=== PATIENT | male | born 1960 | race Caucasian/White ===

== ENCOUNTER 2017-05-10 08:07 | Emergency (ER) | payer MEDICARE, MEDICAID, SELFPAY ==
[2017-05-10 08:08] VITALS: BP 144/116; PULSE 100; RESP 20; TEMP 36.6; O2SAT 98; BMI 23.3
--- NOTE | 2017-05-10 08:24 | RAD_ITS ---
STUDY: X-RAY CHEST REASON FOR EXAM: Male, 57 years old. Hemoptysis. TECHNIQUE: PA and lateral views of the chest. COMPARISON: Comparison is made with prior study dated November 22, 2016. FINDINGS: Hyperinflation. Decreased bronchovascular markings in both lungs suggestive of emphysematous changes. No acute abnormality is seen. There is no demonstrated pleural abnormality. Normal size heart. Normal mediastinum and zachary. Normal visualized pulmonary arteries. Normal visualized aortic arch and descending thoracic aorta. There are mild degenerative changes of the visualized thoracic spine. Normal visualized ribs, clavicles, and shoulders. There is no demonstrated abnormality of the visualized soft tissue structures of the upper abdomen. RAD/Chest PA and Lateral IMPRESSION: Hyperinflation and emphysematous changes. No acute abnormality is seen. Electronically Signed: Neftali Hernandez MD at 9:35 EST Tel [phone], Service support ,
--- NOTE | 2017-05-10 08:25 | ED.VISSUMM ---
- ER Visit Summary Date of Service: 05/10/17 Chief Complaint: Cough History of Present Illness: The patient is a 57 M history of anxiety and scleroderma. Also MS. Patient states that he has a cough for a month. He states he was diagnosed with influenza at the [facility] urgent care. States she was initially placed on doxycycline and currently is on Bactrim. He states that in the last 2 days he has been coughing up some flecks of blood. He denies any history of TB. No recent travel, surgery or mobilization. No leg pain or swelling. No history of DVT or PE. No chest pain. Physical Examination: Well-appearing middle-age male. Vital signs are stable and afebrile. Pulse ox 90% on room air no signs of hypoxia. H EENT exam is unremarkable. Neck nontender no JVD no lymphadenopathy. Lungs coarse breath sounds but no rales, rhonchi or wheezing. Equal and symmetrical. No distress. Heart regular rhythm rate about 90-100 no murmur. Abdomen is soft and nontender. Well-healed surgical incision in the right lower quadrant for prior hernia repair. He is moving all 4 extremities. They are neurovascularly intact. No edema. No calf pain or cords. Neurologically is awake and alert. Back exam nontender. Test Results: Chest x-ray two-view shows shows chronic changes consistent with COPD but no acute abnormality. Normal cardiac silhouette. No pneumothorax. No infiltrate. No mass. Read both by myself the radiologist. I did go over the x-ray with the patient. Emergency Department Course and Treatment: Clinically patient looks good. More than likely has a viral bronchitis. Treatment Plan: No antibiotics at this time. I expressed to him he needs to stop smoking he says he is trying is gone from 3 packs a day to down to a half a pack. Disposition: Discharge Impression: Viral bronchitis OPD Tobacco abuse This note was generated with Innove[employer] dictation software. It may contain incorrect words, spelling, and punctuation that were not noted in review of the chart prior to signing ED Disposition - Plan for ED Patient: Chief Complaint: Cough Referrals: Care Physician,No Primary [NON-STAFF] -
--- NOTE | 2017-05-10 09:48 | DCINST.ED_ITS ---
ED Disposition - Plan for ED Patient: Disposition: Home or Assisted Living Chief Complaint: Cough Instructions: ED COPD Flare Referrals: Care Physician,No Primary [NON-STAFF] - 3-5 Days if not improving Additional Instructions: Stop smoking. [id number] cough suppressant. At this time he did not need an antibiotic. You do have COPD but there are no acute signs of pneumonia and there are no obvious lung masses on your chest x- ray. If you continue to cough up blood you will need further evaluation and possible a scope of your lungs called bronchoscopy.
[2017-05-10 09:53] VITALS: BP 152/89; PULSE 95; RESP 16; O2SAT 99
== END 2017-05-10 09:54 | disposition home or self-care (01) ==
PROVIDERS: Emergency Provider Emergency Medicine; Family Provider Family Medicine; PCP Family Medicine
DX: J20.8 Acute bronchitis due to other specified organisms (principal); J44.9 Chronic obstructive pulmonary disease, unspecified; Z72.0 Tobacco use; F41.9 Anxiety disorder, unspecified; M34.9 Systemic sclerosis, unspecified; G35 Multiple sclerosis; Z79.82 Long term (current) use of aspirin; Z79.899 Other long term (current) drug therapy
CPT/HCPCS: 71046; 99284

== ENCOUNTER → 2017-05-25 07:24 | Outpatient (CLI) | payer MEDICARE, MEDICAID, SELFPAY ==
[2017-05-10 08:08] VITALS: BMI 23.3
[2017-05-10 09:53] VITALS: BP 152/89
--- NOTE | 2017-05-25 07:45 | MRI_ITS ---
STUDY: MR PELVIS WITHOUT CONTRAST REASON FOR EXAM: Male, 57 years old. Chronic right lower quadrant pain. TECHNIQUE: Standardized fat and water weighted pulse sequences were obtained in all 3 orthogonal planes. COMPARISON: CT dated January 21, 2017 FINDINGS: There is bladder wall thickening present. There is a left renal cyst visualized. Normal visualized small intestine. Normal visualized colon. There is no pelvic mass lesion or lymphadenopathy. Normal visualized pelvic arteries. There is degenerative disc disease at L5-S1 associated with a posterior disc osteophyte causing bilateral narrowing of the neuroforamina. There are postsurgical changes within the inguinal region bilaterally. There is persistent fluid within the inguinal region bilaterally, left greater than right. MRI/Pelvis (Routine) IMPRESSION: Postsurgical changes within the inguinal region associated with a small amount of fluid, left greater than right. Bladder wall thickening which may be partially secondary to its incomplete distended state however this may be secondary to a history of cystitis. L5-S1 posterior disc osteophyte causing bilateral neuroforaminal stenosis. Electronically Signed: Oneida Peter MD at 20:03 EST Tel , Service support ,
--- NOTE | 2017-05-25 08:30 | MRI_ITS ---
STUDY: MR CHOLANGIOPANCREATOGRAPHY (MRCP) REASON FOR EXAM: Male, 57 years old. Chronic RLQ pain, Pt co that hernia mesh pulled loose. TECHNIQUE: Standard MRCP technique was utilized. COMPARISON: CT Abdomen/Pelvis Jan 21 2017 5:59pm FINDINGS: There are calcifications of the abdominal aorta. This is consistent for atherosclerotic disease. There is no abdominal aortic aneurysm. Degenerative findings of the lumbar spine. 20 mm T2 hyperintensity in the left kidney. Gall Bladder: Gall bladder is surgically absent. Cystic duct: Normal with no demonstrated fixed filling defect. Intrahepatic ducts: Normal visualized intrahepatic ducts with no demonstrated fixed filling defect, dilation or stricture. Common hepatic duct: Normal with no demonstrated fixed filling defect, dilation or stricture. Common bile duct: Normal with no demonstrated fixed filling defect, dilation or stricture. Common bile duct diameter is 4.1 mm. Pancreatic duct: Normal with no demonstrated fixed filling defect, dilation or stricture. MRI/MRCP Abdomen without Contrast IMPRESSION: Simple left renal cyst. Cholecystectomy. Electronically Signed: Eitan Harvey MD at 23:38 EST , Service support ,
== END ==
PROVIDERS: Family Provider Family Medicine; PCP Family Medicine; Visit Provider Family Medicine
DX: R10.31 Right lower quadrant pain (principal); R10.9 Unspecified abdominal pain; G89.29 Other chronic pain
CPT/HCPCS: 72195; 74181

== ENCOUNTER 2017-06-02 13:07 | Emergency (ER) | payer MEDICARE, MEDICAID, SELFPAY ==
[2017-06-02 13:08] VITALS: BP 159/97; PULSE 97; RESP 20; TEMP 36.6; O2SAT 99; BMI 24.7
--- NOTE | 2017-06-02 13:39 | EKG12_ITS ---
Test Reason : CP Blood Pressure : / mmHG Vent. Rate : 093 BPM Atrial Rate : 093 BPM P-R Int : 122 ms QRS Dur : 090 ms QT Int : 344 ms P-R-T Axes : 076 090 073 degrees QTc Int : 427 ms Normal sinus rhythm Normal ECG Confirmed by AMANDA ESPAÑA, ARLEN ([id number]), editor at large ASHLEY GARCIA ([id number]) on 06/05/2017 1:46:53 PM Referred By: ROSENDO Confirmed By:ARLEN PATEL MD
--- NOTE | 2017-06-02 13:39 | RAD_ITS ---
STUDY: X-RAY CHEST REASON FOR EXAM: Male, 57 years old. Cough TECHNIQUE: Frontal and lateral views of the chest were obtained. COMPARISON: May 10, 2017 FINDINGS: The lungs are hyperinflated. There are no focal airspace opacities. There is no demonstrated pleural abnormality. The cardiac silhouette is normal in size. The mediastinum and hilar regions are unremarkable. Normal visualized pulmonary arteries. Normal visualized aortic arch and descending thoracic aorta. The thoracic spine is unremarkable. The visualized ribs, clavicles, and shoulders are unremarkable. There is no demonstrated abnormality of the visualized upper abdomen. RAD/Chest PA and Lateral IMPRESSION: There is no evidence of focal consolidation or pleural effusion. Stable COPD. Electronically Signed: Nelda Cam MD at 14:28 EST Tel Direct: [phone], Service support ,
[2017-06-02 14:05] LABS: Absolute Lymphocyte Count 2.26 X10^3/ul (0.83-4.51); Absolute Neutrophil Count 3.1 X10^3/uL (2.0-7.7); Basophil# 0.02 X10^3/uL; Basophil% 0.3 % (0-1); Eosinophil# 0.05 X10^3/uL; Eosinophils% 0.8 % (0-5); Hematocrit 44.6 % (40-54); Hemoglobin 14.9 g/dl (13.0-16.5); Lymphocyte # 2.26 X10^3/ul (4.0); Lymphocyte % 37.7 % (19-41); Mean Corp Hgb Conc 33.4 g/gl (32-36); Mean Corpuscular Volume 95.7 fL (80-94); Mean Platelet Vol. 9.1 fl (6.2-12.0); Monocyte# 0.52 X10^3/uL; Monocyte% 8.7 % (0-10); Neutrophil # 3.14 X10^3/uL (2.7-7.7); Neutrophil % 52.3 % (47-70); Platelet Count 232 K/mm3 (150-450); RBC Distribution Width CV 12.9 % (11.6-14.6); Red Blood Count 4.66 M/mm3 (4.6-6.2)
[2017-06-02] MEDS: Acetaminophen 500 MG Tablet 1000 MG PO (14:06)
[2017-06-02 14:07] LABS: POSITIVE COUNT NO; POSITIVE DIFFERENTIAL NO; POSITIVE MORPHOLOGY NO
[2017-06-02 14:15] LABS: Anion Gap 5 (5-15); BUN 7 mg/dL (7-18); BUN/Creat Ratio 8.8 RATIO (10-20); Calcium,Total 8.7 mg/dL (8.5-10.1); Chloride 103 mmol/L (98-107); EST Glomerular Filtration Rate 107 mL/min (>60); Est Glom Filt Rate - Afr Amer 129 mL/min (>60); Estimated Creatinine Clearance 109.81 ml/min; Glucose 122 mg/dL (74-106); Potassium 3.9 mmol/L (3.5-5.1); Sodium Level 140 mmol/L (136-145)
--- NOTE | 2017-06-02 14:53 | ED.VISSUMM ---
- ER Visit Summary Date of Service: 06/02/17 Chief Complaint: Chest pain History of Present Illness: The patient is a [address] Webb. He reports he has chest pain that began today approximately 7 hours ago. It is a constant pressure that is 10 out of 10 with movement of his arm and 9 out of 10 at rest. The pain is relieved by nothing. He has had nausea and shortness of breath. He has a cough that is productive clear sputum. He has chronic shortness of breath that is unchanged. Also complains of a headache is 7 out of 10 severity and is similar to prior headaches. Physical Examination: Vitals: Stable. Afebrile. General: Well-nourished and well-developed. Head: Normocephalic atraumatic. Neck: Supple, no lymphadenopathy. No JVD. Nontender. Cardiovascular: Regular rate and rhythm. No murmurs. Respiratory: No respiratory distress. Mild wheezing bilaterally with good air movement. Abdominal: Soft, mild diffuse tenderness to palpation, nondistended, normal bowel sounds. No guarding, rebound, or peritoneal signs. Back: Nontender. Extremities: Nontender, no edema. Skin: Normal color, no rash. Neurologic: Alert and oriented ?3. Cranial nerves II through XII are intact. Normal strength and sensation. Psych: Normal affect. Test Results: EKG is sinus at [address] changes. Is unchanged from February 2017. Troponin is less than 0.02 with greater than 7 hours of constant pain. Chem-7 is more for glucose of 122. CBC is normal. Chest x-ray shows chronic changes. Emergency Department Course and Treatment: She was treated with prednisone p.o., Tylenol p.o., and albuterol and Atrovent aerosols. He is resting comfortably. Treatment Plan: He will be discharged 5 day burst of prednisone. Instructed to use his inhaler at home. Follow-up with his primary care physician in 5 days if not improving. Disposition: To home in improved and stable condition. Impression: 1. COPD exacerbation. 2. Atypical chest pain. 3. STEVEN score of 1. This note was generated with PlayCanvasation software. It may contain incorrect words, spelling, and punctuation that were not noted in review of the chart prior to signing ED Disposition - Plan for ED Patient: Disposition: Home or Assisted Living Chief Complaint: Chest Pain Instructions: ED Chest Pain Atypical Unkn Cause Prescriptions: Prednisone [Deltasone] 60 mg PO DAILY #15 tablet Referrals: Savita Webb MD [Primary Care Provider] - 3-5 Days if not improving
--- NOTE | 2017-06-02 15:04 | ED.DCSUM_ITS ---
- ER Visit Summary Date of Service: 06/02/17 Chief Complaint: Chest pain History of Present Illness: The patient is a [address] Webb. He reports he has chest pain that began today approximately 7 hours ago. It is a constant pressure that is 10 out of 10 with movement of his arm and 9 out of 10 at rest. The pain is relieved by nothing. He has had nausea and shortness of breath. He has a cough that is productive clear sputum. He has chronic shortness of breath that is unchanged. Also complains of a headache is 7 out of 10 severity and is similar to prior headaches. Physical Examination: Vitals: Stable. Afebrile. General: Well-nourished and well-developed. Head: Normocephalic atraumatic. Neck: Supple, no lymphadenopathy. No JVD. Nontender. Cardiovascular: Regular rate and rhythm. No murmurs. Respiratory: No respiratory distress. Mild wheezing bilaterally with good air movement. Abdominal: Soft, mild diffuse tenderness to palpation, nondistended, normal bowel sounds. No guarding, rebound, or peritoneal signs. Back: Nontender. Extremities: Nontender, no edema. Skin: Normal color, no rash. Neurologic: Alert and oriented ?3. Cranial nerves II through XII are intact. Normal strength and sensation. Psych: Normal affect. Test Results: EKG is sinus at [address] changes. Is unchanged from February 2017. Troponin is less than 0.02 with greater than 7 hours of constant pain. Chem-7 is more for glucose of 122. CBC is normal. Chest x-ray shows chronic changes. Emergency Department Course and Treatment: She was treated with prednisone p.o. , Tylenol p.o., and albuterol and Atrovent aerosols. He is resting comfortably. Treatment Plan: He will be discharged 5 day burst of prednisone. Instructed to use his inhaler at home. Follow-up with his primary care physician in 5 days if not improving. Disposition: To home in improved and stable condition. Impression: 1. COPD exacerbation. 2. Atypical chest pain. 3. STEVEN score of 1. This note was generated with DragonRADation software. It may contain incorrect words, spelling, and punctuation that were not noted in review of the chart prior to signing ED Disposition - Plan for ED Patient: Disposition: Home or Assisted Living Chief Complaint: Chest Pain Instructions: ED Chest Pain Atypical Unkn Cause Prescriptions: Prednisone [Deltasone] 60 mg PO DAILY #15 tablet Referrals: Savita Webb MD [Primary Care Provider] - 3-5 Days if not improving
[2017-06-02 15:12] VITALS: BP 148/98; PULSE 84; RESP 17; O2SAT 94
== END 2017-06-02 15:13 | disposition home or self-care (01) ==
LOC: ED 14:34
PROVIDERS: Emergency Provider Emergency Medicine; Family Provider Family Medicine; PCP Family Medicine
DX: J44.1 Chronic obstructive pulmonary disease with (acute) exacerbation (principal); R07.89 Other chest pain; G35 Multiple sclerosis; F41.9 Anxiety disorder, unspecified; Z72.0 Tobacco use; Z79.82 Long term (current) use of aspirin; Z79.52 Long term (current) use of systemic steroids
CPT/HCPCS: 71046; 80048; 84484; 85025; 93005; 96360; 99285; J7030; J7040; A4216

== ENCOUNTER → 2017-07-30 16:40 | Outpatient (CLI) | payer MEDICARE, MEDICAID, SELFPAY ==
[2017-07-30 16:50] LABS: Bacteria 0 SEEN /hpf (None Seen); Mucous, Urine 0 SEEN /hpf (<or=2+); Squamous Epithelial Cells - UA 0 SEEN /hpf (0-5)
[2017-07-30 17:27] LABS: Color, Urine Yellow (Yellow); Glucose, Dipstick Normal (Normal); Ketone-Dipstick Negative (Negative); Leukocyte Esterase-Dipstick 25 /ul (Negative); Nitrite-Dipstick Negative (Negative); Occult Blood-Urine 10 /ul (Negative); Protein-Dipstick Negative (Negative); Urine Bilirubin Dipstick Negative (Negative); Urine Clarity Sl. Cloudy (Clear); Urine Urobilinogen Normal (Normal)
[2017-07-30 17:40] LABS: Red Blood Cells-Urine 0-5 SEEN /hpf (0-5); White Blood Cells 0-5 SEEN /hpf (0-5)
[2017-07-31 08:31] LABS: Anion Gap 8 (5-15); BUN 8 mg/dL (7-18); BUN/Creat Ratio 9.9 RATIO (10-20); Calcium,Total 8.9 mg/dL (8.5-10.1); Chloride 94 mmol/L (98-107); Creatinine, Serum 0.81 mg/dL (0.70-1.30); EST Glomerular Filtration Rate 105 mL/min (>60); Est Glom Filt Rate - Afr Amer 127 mL/min (>60); Glucose 106 mg/dL (74-106); Potassium 3.7 mmol/L (3.5-5.1); Sodium Level 131 mmol/L (136-145)
== END ==
PROVIDERS: Family Provider Family Medicine; PCP Family Medicine; Visit Provider Urology
DX: R97.20 Elevated prostate specific antigen [PSA] (principal); N40.0 Benign prostatic hyperplasia without lower urinary tract symptoms
CPT/HCPCS: 36415; 80048; 81001; 81002; 84153

== ENCOUNTER → 2017-08-29 09:48 | Outpatient (CLI) | payer MEDICARE, MEDICAID, SELFPAY ==
[2017-08-29 11:29] LABS: Anion Gap 6 (5-15); BUN 9 mg/dL (7-18); BUN/Creat Ratio 11.8 RATIO (10-20); Calcium,Total 8.5 mg/dL (8.5-10.1); Chloride 107 mmol/L (98-107); Creatinine, Serum 0.76 mg/dL (0.70-1.30); EST Glomerular Filtration Rate 113 mL/min (>60); Est Glom Filt Rate - Afr Amer 136 mL/min (>60); Glucose 114 mg/dL (74-106); Potassium 3.8 mmol/L (3.5-5.1); Sodium Level 140 mmol/L (136-145)
== END ==
PROVIDERS: Visit Provider Urology
DX: Z98.890 Other specified postprocedural states (principal)
CPT/HCPCS: 36415; 80048

== ENCOUNTER 2017-11-13 17:38 | Emergency (ER) | payer MEDICARE, MEDICAID, SELFPAY ==
[2017-11-13 17:38] VITALS: BP 174/101; PULSE 120; RESP 18; TEMP 36.1; O2SAT 98; BMI 25.7
--- NOTE | 2017-11-13 18:25 | ED.VISSUMM ---
- ER Visit Summary Date of Service: 11/13/17 Chief Complaint: Chronic abdominal pain History of Present Illness: The patient is a 57 M with chronic abdominal pain since he had bilateral inguinal hernia surgery 2 years ago. He states that ever since the surgery was done, he has had pain at the site and feels like there is a problem with the mesh. He tells me that he has had over 20 CT scans for this and has seen specialist all over the country. He is currently seeing a specialist in [place] who is planning to do surgery to remove the mesh. He was there last month and he reported that the pain from his abdomen is radiating into his chest so they delayed the surgery until he could be cleared by cardiology. He subsequently saw a custodial officer while he was in [place] and had a stress test which was negative. He was cleared for the surgery but it had to be rescheduled. He presents today without any new symptoms. He states that his complaints are the same as chronic. Denies diaphoresis, chest pain, shortness of breath. No exertional symptoms. He only has pain at his hernia site and only with certain movements or palpation. He is requesting a new prescription for an abdominal pain medication. Physical Examination: Vitals are within normal limits except for mild hypertension. He states that he did not take his medication. He is not in distress. He looks well-hydrated. Neck is supple. Heart tones are regular and without murmur. Lungs are clear bilaterally. Abdomen is soft and nontender. The skin over his surgery site looks normal. There is no palpable mass. No evidence of incarcerated hernia. No rebound or guarding. No peritoneal signs. Strong pulses in all extremities. No clinical evidence of DVT. Test Results: None performed Emergency Department Course and Treatment: I spoke at length with the patient. He assures me that this is a chronic recurrent problem for him. He told me that he does not want any testing done and states that he has had basically every test that there is and that he knows all of this is from the hernia surgery. He is planning to go through with the surgery but is here requesting a refill of his cholestyramine to cover him for a short period he is slightly tachycardic and hypertensive here on arrival but it is improved on repeat. He is not in any distress. He has no evidence of an acute surgical abdomen. His EKG is unremarkable and he currently denies any chest pain. While he did travel recently to [place], he has no clinical evidence of DVT and no pleuritic chest pain. No shortness of breath and his pulse ox is normal. I do not suspect DVT or PE. He does not want any testing done here and given the chronicity of his symptoms, I do think it is safe for him to continue outpatient follow-up. Treatment Plan: I prescribed Levsin. He will follow-up as scheduled Disposition: Home stable condition Impression: Chronic abdominal pain This note was generated with SwiftKey dictation software. It may contain incorrect words, spelling, and punctuation that were not noted in review of the chart prior to signing ED Disposition - Plan for ED Patient: Chief Complaint: General Illness Instructions: ED Chronic Pain Management Prescriptions: Hyoscyamine [Levsinex] 0.375 mg PO Q12 #6 tablet Referrals: Care Physician,No Primary [Primary Care Provider] -
[2017-11-13 18:57] VITALS: BP 147/99; PULSE 100; RESP 18; O2SAT 97
[2017-11-13] MEDS: Hyoscyamine Sulfate 0.125 MG/ML Bottle 0.375 MG PO (18:58)
== END 2017-11-13 19:02 | disposition home or self-care (01) ==
PROVIDERS: Emergency Provider Emergency Medicine
DX: R10.9 Unspecified abdominal pain (principal); G89.29 Other chronic pain; Z79.82 Long term (current) use of aspirin; Z79.899 Other long term (current) drug therapy
CPT/HCPCS: 93005; 99283

== ENCOUNTER 2017-11-20 17:12 | Emergency (ER) | payer MEDICARE, MEDICAID, SELFPAY ==
[2017-11-20 17:13] VITALS: BP 141/96; PULSE 99; RESP 18; TEMP 36.6; O2SAT 97; BMI 25.5
[2017-11-20 17:55] VITALS: PULSE 103; RESP 18
[2017-11-20] MEDS: Ipratropium/Albuterol Sulfate 3 ML AMPUL.NEB INHALATION (17:55)
[2017-11-20] MEDS: Ketorolac 30 MG/ML Syringe 60 MG IM (17:55)
--- NOTE | 2017-11-20 19:34 | ED.VISSUMM ---
- ER Visit Summary Date of Service: 11/20/17 Chief Complaint: Back pain History of Present Illness: The patient is a 57 M who goes to [facility]. He reports that he has had back pain for years. It worsened 2 hours ago. He describes it as a burning pain that is 10 out of 10 at worst and 9 out of 10 currently. It is worsened by movement. He is taken Tylenol without relief. He denies any radiation to his legs. No problems with his bowels or bladder. No numbness in his groin. No recent trauma. No fall, MVA, or change in activity. On review of systems patient reports that he has a little bit of cough and mild shortness of breath. He denies any fever or chills. He has had nausea without vomiting. No abdominal pain. He has had 3 episodes of diarrhea today. No blood in his stools or black tarry stools. He has a headache that is 4 out of 10 in severity. He has a history of similar headaches. He denies any other complaints. Physical Examination: Vitals: Stable. Afebrile. General: A&O x 3. NAD. Cardiovascular exam: Regular rate and rhythm, no murmur, rub or gallop. Respiratory exam: No respiratory distress. Mild wheezing bilaterally with greatly decreased air movement. Abdominal exam: Soft, nontender, nondistended, normal bowel sounds. No peritoneal signs. Back: Diffuse moderate tenderness to palpation over the lumbar spine and the paraspinous musculature in the lumbar region. No point tenderness. Negative straight leg bilaterally. 5/5 DF, PF, EHL bilaterally. Normal sensation to light touch throughout. Extremity: No clubbing, cyanosis, or edema. Palpable dorsalis pedis pulses bilaterally. Test Results: Chest x-ray shows chronic changes. Emergency Department Course and Treatment: Patient was given dose of Toradol IM. History of albuterol and Atrovent aerosols. Is given dose of prednisone p.o. Treatment Plan: Patient will be discharged instructions to use NSAIDs and Tylenol for pain. He will be placed on a 5 day burst of prednisone. Is given prescription for an albuterol MDI. Instructed to follow-up his primary care physician 1-2 days if not improving. Return to the emergency department for any worsening symptoms. Disposition: To home in improved and stable condition. Impression: 1. Chronic back pain. 2. COPD. This note was generated with CITTIO dictation software. It may contain incorrect words, spelling, and punctuation that were not noted in review of the chart prior to signing ED Disposition - Plan for ED Patient: Disposition: Home or Assisted Living Chief Complaint: Shortness of Breath Instructions: ED COPD Flare, ED Neck Back Pain General Prescriptions: Albuterol Inhaler [Ventolin Hfa] 1 - 2 puff INHALATION Q4H PRN PRN #1 inhaler PRN Reason: Wheezing Prednisone [Deltasone] 60 mg PO DAILY #15 tablet Referrals: Doctor,Your [STAFF PHYSICIAN] - 3-5 Days if not improving
[2017-11-20 20:00] VITALS: BP 140/94; PULSE 86; RESP 18; O2SAT 96
[2017-11-20] MEDS: predniSONE 20 MG Tablet 40 MG PO (20:01)
--- NOTE | 2017-11-21 12:04 | CM.ED ---
ED CALLBACK: Follow-up call placed to patient with no answer. Voicemail left with return contact information.
== END 2017-11-20 20:05 | disposition home or self-care (01) ==
LOC: ED 18:06
PROVIDERS: Emergency Provider Emergency Medicine
DX: M54.5 Low back pain (principal); G89.29 Other chronic pain; J44.9 Chronic obstructive pulmonary disease, unspecified; G35 Multiple sclerosis; F41.9 Anxiety disorder, unspecified; Z72.0 Tobacco use; Z79.82 Long term (current) use of aspirin; Z79.52 Long term (current) use of systemic steroids; Z79.899 Other long term (current) drug therapy
CPT/HCPCS: 71046; 94640; 96372; 99283

== ENCOUNTER 2017-11-29 11:54 | Emergency (ER) | payer MEDICARE, MEDICAID, SELFPAY ==
[2017-11-29 11:56] VITALS: BP 155/93; PULSE 116; RESP 18; TEMP 36.6; O2SAT 98; BMI 25.7
--- NOTE | 2017-11-29 12:44 | ED.DCSUM_ITS ---
- ER Visit Summary Date of Service: 11/29/17 Chief Complaint: Acute on chronic abdominal pain. History of Present Illness: The patient is a 57 M 3 of prior bilateral inguinal hernias with mesh. Also positive umbilical hernia surgery. Patient had this done in May 2016 at [place]. He has had pain ever since he has been seen here multiple times. He is seen. He states at least 20 different surgeons including surgeons locally. Also in [facility] and [place]. No surgon is going to remove the mesh. He is frustrated by this. Physical Examination: Oh. No acute distress. Vital signs stable afebrile. H EENT exam unremarkable strong smell tobacco. Neck nontender. Lungs coarse breath sounds no rales or rhonchi. Heart regular rhythm. Abdomen soft. Nondistended normal bowel sounds no peritoneal signs. He complains of pain suprapubically and in both lower quadrants. There is no bulge at this time. No obvious hernia at this time. No masses. No distended bladder. No signs of obstruction. He is moving all 4 extremities. Calves are nontender. Back exam nontender. Neurologically is awake and alert. Test Results: None Emergency Department Course and Treatment: I had a long discussion with the patient in a male that was in the room with him. I explained to him that this really is not an acute emergency department problem. He has had this for nearly 1-1/2-2 years. He is followed up with a number of surgeons. They need to decide if there is a going to remove the mesh and do further surgery or not and at this time it seems like no one is willing to do that. I explained to him he needs no further testing today in the ER. That the ER would not be removing the mesh. Treatment Plan: Patient received IM Toradol. IM Phenergan. And discharged home. He does have Zofran at home for nausea. Disposition: Discharge Impression: Acute on chronic abdominal pain History of prior inguinal hernia repairs with mesh This note was generated with Basha dictation software. It may contain incorrect words, spelling, and punctuation that were not noted in review of the chart prior to signing ED Disposition - Plan for ED Patient: Chief Complaint: Abd Pain Referrals: Care Physician,No Primary [Primary Care Provider] -
--- NOTE | 2017-11-29 12:44 | ED.DEP ---
ED Disposition - Plan for ED Patient: Disposition: Home or Assisted Living Chief Complaint: Abd Pain Instructions: ED Abdominal Pain Unkn Cause Referrals: Verito Ceron MD [STAFF PHYSICIAN] - 1-2 Weeks
--- NOTE | 2017-11-29 12:44 | ED.RN ---
Upon getting medications for patient, patient was observed walking out of ED. Pt did not respond when asked if he wanted his medication. Dr. Cuellar and registration notified.
== END 2017-11-29 13:10 | disposition home or self-care (01) ==
LOC: ED 14:56
PROVIDERS: Emergency Provider Emergency Medicine
DX: R10.33 Periumbilical pain (principal); R10.31 Right lower quadrant pain; R10.32 Left lower quadrant pain; Z98.890 Other specified postprocedural states; G89.29 Other chronic pain; Z72.0 Tobacco use
CPT/HCPCS: 96372; 99282

== ENCOUNTER 2017-12-14 18:22 | Emergency (ER) | payer MEDICARE, MEDICAID, SELFPAY ==
[2017-12-14 18:23] VITALS: BP 167/91; PULSE 102; RESP 16; TEMP 36.1; BMI 26.2
--- NOTE | 2017-12-14 19:07 | ED.VISSUMM ---
- ER Visit Summary Date of Service: 12/14/17 Chief Complaint: Abdominal pain History of Present Illness: The patient is a 57 M with abdominal pain for about a year, however this is worse today and he feels like his right inguinal mesh is infected. Apparently he has had these infections in the past. He has no fever chills. He has no diarrhea constipation or flank pain. He has no upper abdominal pain. Physical Examination: [] Patient does not appear in acute distress. Moist mucous membranes, no obvious facial deformity No C-spine tenderness supple neck. Regular rate and rhythm without any obvious murmurs Clear lungs bilaterally speaking in full sentences without any obvious respiratory distress Abdomen soft and with inguinal tenderness guarding or rebound. No swelling in that region, no pallor or erythema or any signs of infection. Moves all extremities without any difficulty or pain. Skin does not show any obvious rashes or lesions, no trauma. Alert oriented ?3 with no gross focal deficit Emergency Department Course and Treatment: Has a negative CT. White counts 8 he appears well and nontoxic I do not see an infection he probably has pain in his mesh which is at multiple times I will discharge him with reassurance. Discharge stable condition Impression: Abdominal pain, chronic recurrent This note was generated with [employer] dictation software. It may contain incorrect words, spelling, and punctuation that were not noted in review of the chart prior to signing ED Disposition - Plan for ED Patient: Disposition: Home or Assisted Living Chief Complaint: Abd Pain Instructions: ED Abdominal Pain Unkn Cause Prescriptions: Naproxen [Naprosyn] 500 mg PO BID PRN #20 tab Referrals: Care Physician,No Primary [Primary Care Provider] - 5-7 Days
[2017-12-14] MEDS: Morphine 4 MG/ML Syringe IV (19:09)
[2017-12-14] MEDS: Ondansetron 4 MG/2 ML Vial IV (19:09)
[2017-12-14 19:25] LABS: Absolute Lymphocyte Count 1.76 X10^3/ul (0.83-4.51); Absolute Neutrophil Count 5.8 X10^3/uL (2.0-7.7); Basophil# 0.03 X10^3/uL; Basophil% 0.4 % (0-1); Eosinophil# 0.08 X10^3/uL; Eosinophils% 0.9 % (0-5); Hematocrit 44.6 % (40-54); Hemoglobin 15.5 g/dl (13.0-16.5); Lymphocyte # 1.76 X10^3/ul (4.0); Lymphocyte % 20.6 % (19-41); Mean Corp Hgb Conc 34.8 g/gl (32-36); Mean Corpuscular Hgb 32.3 pg (27.0-32.0); Mean Corpuscular Volume 92.9 fL (80-94); Monocyte# 0.88 X10^3/uL; Monocyte% 10.3 % (0-10); Neutrophil # 5.77 X10^3/uL (2.7-7.7); Neutrophil % 67.7 % (47-70); Platelet Count 243 K/mm3 (150-450); RBC Distribution Width CV 12.7 % (11.6-14.6); RBC Distribution Width SD 42.6 fl (35.1-43.9); White Blood Count 8.5 K/mm3 (4.4-11.0)
[2017-12-14 19:26] LABS: POSITIVE COUNT NO; POSITIVE DIFFERENTIAL NO; POSITIVE MORPHOLOGY NO
[2017-12-14 19:54] LABS: ALB/GLOB Ratio 1.1 RATIO (0.9-2.4); AST(SGOT) 19 U/L (15-37); Alanine Aminotransfer ALT/SGPT 22 U/L (16-61); Albumin, Serum 3.6 g/dL (3.2-5.0); Alkaline Phosphatase 76 U/L (45-117); Anion Gap 9 (5-15); BUN 14 mg/dL (7-18); BUN/Creat Ratio 15.4 RATIO (10-20); Calcium,Total 8.3 mg/dL (8.5-10.1); Chloride 108 mmol/L (98-107); Creatinine, Serum 0.91 mg/dL (0.70-1.30); EST Glomerular Filtration Rate 92 mL/min (>60); Est Glom Filt Rate - Afr Amer 111 mL/min (>60); Estimated Creatinine Clearance 96.54 ml/min; Globulin 3.3 g/dL (2.2-4.2); Glucose 141 mg/dL (74-106); Potassium 3.3 mmol/L (3.5-5.1); Protein, Total 6.9 g/dL (6.4-8.2); Sodium Level 144 mmol/L (136-145)
--- NOTE | 2017-12-14 21:04 | ED.DEP ---
ED Disposition - Plan for ED Patient: Disposition: Home or Assisted Living Chief Complaint: Abd Pain Instructions: ED Abdominal Pain Unkn Cause Prescriptions: Naproxen [Naprosyn] 500 mg PO BID PRN #20 tab Referrals: Care Physician,No Primary [Primary Care Provider] - 5-7 Days
[2017-12-14 21:10] VITALS: BP 142/90; PULSE 81; RESP 18; O2SAT 94
== END 2017-12-14 21:11 | disposition home or self-care (01) ==
PROVIDERS: Emergency Provider Emergency Medicine
DX: R10.31 Right lower quadrant pain (principal); G89.29 Other chronic pain; J44.9 Chronic obstructive pulmonary disease, unspecified; G35 Multiple sclerosis; F41.9 Anxiety disorder, unspecified; Z72.0 Tobacco use; Z79.51 Long term (current) use of inhaled steroids; Z79.82 Long term (current) use of aspirin; Z79.899 Other long term (current) drug therapy
CPT/HCPCS: 74176; 80053; 85025; 96374; 96375; 99283; A4216; J2405

== ENCOUNTER → 2017-12-27 07:23 | Outpatient (CLI) | payer MEDICARE, MEDICAID, SELFPAY ==
--- NOTE | 2017-12-27 07:26 | CDU_ITS ---
Reason For Study: ATHEROSCLEROSIS Rt. Velocities/BP Lt. Velocities/BP Prox CCA 94/24 cm/sec. Prox CCA 123 cm/sec. Mid CCA 84/32 cm/sec. Mid CCA 72/27 cm/sec. Dist CCA 76/26 cm/sec. Dist CCA 90/38 cm/sec. Prox ICA 42/19 cm/sec. Prox ICA 97/23 cm/sec. Mid ICA 52/24 cm/sec. Mid ICA 53/22 cm/sec. Dist ICA 76/36 cm/sec. Dist ICA 92/42 cm/sec. Rt. ICA/CCA = .9. Lt. ICA/CCA = 1.35. Prox ECA 125/25 cm/sec. Prox ECA 73/20 cm/sec. Rt. Vert. 46/23 cm/sec. Lt. Vert. 61/24 cm/sec. Right Extracranial There is homogeneous, smooth atherosclerotic plaque noted in the right common carotid artery. There is heterogeneous, irregular atherosclerotic plaque noted in the right internal carotid artery. There is heterogeneous, irregular atherosclerotic plaque noted in the right external carotid artery. Antegrade flow is noted in the right vertebral artery. Left Extracranial There is homogeneous, smooth atherosclerotic plaque noted in the left common carotid artery. There is heterogeneous, irregular atherosclerotic plaque noted in the left internal carotid artery. There is homogeneous, smooth atherosclerotic plaque noted in the left external carotid artery. Antegrade flow is noted in the left vertebral artery. Procedure Carotid Duplex 70431. Exam performed in department. Interpretation Summary Mild (<50%) stenosis right extracranial internal carotid. Mild (<50%) stenosis left extracranial internal carotid. Flow within the vertebral arteries is antegrade bilaterally. Ordering Physician: Charlie Ovalle Referring Physician: Charlie Ovalle Performed By: Liss Dejesus, ZA, RVT
--- NOTE | 2017-12-27 07:27 | AAVD_ITS ---
Reason For Study: ATHEROSCLEROSIS Aorta Measurements Aorta Doppler Measurements Proximal aorta measures1.5 X 1.6cm. in cross- Peak systolic flow velocities within the proximal sectional axis. aorta measure 48.3 cm/sec. Proximal aorta measures1.7cm. in longitudinal Peak systolic flow velocities within the mid axis. aorta measure 48.3 cm/sec. Mid aorta measures1.7 X 1.6cm. in cross-sectionalPeak systolic flow velocities within the distal axis. aorta measure 53.8 cm/sec. Mid aorta measures1.6cm. in longitudinal axis. Distal aorta measures1.6 X 1.6cm. in cross- sectional axis. Distal aorta measures1.7cm. in longitudinal axis. Left Iliac Artery Left iliac artery measures .8 X .8 cm. in the cross-sectional axis. Left iliac artery measures .7 cm. in the longitudinal axis. Peak systolic velocity in the left iliac artery measures 131 cm/sec. Right Iliac Artery Right iliac artery measures .8 X 1.0 cm. in the cross-sectional axis. Peak systolic velocity in the right iliac artery measures 81.2 cm/sec. Right iliac artery measures .7 cm. in the longitudinal axis. Procedure Aorta IVC Iliac vasculature or bypass grafts 07349. Exam performed in department. Interpretation Summary 1. No aortoiliac aneurysm or stenosis. Ordering Physician: Charlie Ovalle Referring Physician: Charlie Ovalle Performed By: Liss Dejesus, ZA, RVT
--- NOTE | 2018-01-01 08:36 | LEAS ---
Arterial Study - Arterial Study Arterial Study: Date of scan 12/27/[address] Ovalle Interpretation: Right lower extremity with normal triphasic flow noted at the ankle both vessels with an 8 x 1.11 at the PT 1.06 of the DP. Left lower extremity with normal triphasic flow noted at the ankle with an JASON 1.18 at the DPT and 1.09 at the DP. Impression: 1. Bilateral lower extremities with normal triphasic flow no evidence of significant arterial occlusive disease at rest with an JASON 1.11 on the right and 1.18 on the left
== END ==
PROVIDERS: Visit Provider Surgery Vascular Surgery
DX: I65.23 Occlusion and stenosis of bilateral carotid arteries (principal); I70.0 Atherosclerosis of aorta; I70.213 Atherosclerosis of native arteries of extremities with intermittent claudication, bilateral legs
CPT/HCPCS: 93880; 93922; 93978

== ENCOUNTER 2018-01-26 15:34 | Emergency (ER) | payer MEDICARE, MEDICAID, SELFPAY ==
[2018-01-26 15:35] VITALS: BP 149/98; PULSE 98; RESP 18; TEMP 37.1; O2SAT 99; BMI 26.0
--- NOTE | 2018-01-26 15:53 | ED.DCSUM_ITS ---
- ER Visit Summary Date of Service: 01/26/18 Chief Complaint: Chronic pain History of Present Illness: The patient is a 57 M who presents with chronic pain for the last 1+ years since being on a medication called Aubagio. Patient has been off his medication for a year. He states since that time it feels like there are metal shards running through his bloodstream. He has had multiple workups and evaluations by multiple different physicians and surgeons. Recent arterial studies were performed and are normal. Patient states he is scheduled to see a surgeon at [facility] next month. He is currently taking Tylenol for his pain. He has not had fever or chills. He has not had vomiting. He last had a bowel movement this morning. Physical Examination: Vital signs are unremarkable. Patient sitting upright in bed no acute distress. Heart is regular rate and rhythm. Lung sounds are clear. Abdomen is soft with no focal tenderness on exam. He has active bowel sounds throughout. Neuro exam is unremarkable. Test Results: [] Emergency Department Course and Treatment: I did review the patient's recent arterial studies. At this time he has a normal exam and normal vital signs. This is been a chronic ongoing issue with multiple big workups in the past. I do not feel further workup is needed at this time. Patient does state that Toradol seems to help his pain somewhat better than naproxen. He will be given a prescription for Toradol tabs. He is to follow-up with a surgeon at [facility] next month as scheduled. Treatment Plan: [] Disposition: Discharge Impression: Chronic abdominal pain This note was generated with [employer] dictation software. It may contain incorrect words, spelling, and punctuation that were not noted in review of the chart prior to signing ED Disposition - Plan for ED Patient: Chief Complaint: Other, Pain/Inj Referrals: Care Physician,No Primary [Primary Care Provider] -
--- NOTE | 2018-01-26 15:53 | ED.DEP ---
ED Disposition - Plan for ED Patient: Disposition: Home or Assisted Living Chief Complaint: Other, Pain/Inj Instructions: ED Chronic Pain Management Prescriptions: Ketorolac [Toradol] 10 mg PO Q6H PRN #20 tablet PRN Reason: Pain Additional Instructions: Follow-up with your surgeon at [facility] next month as scheduled.
[2018-01-26] MEDS: Ketorolac 10 MG Tablet PO (16:07)
== END 2018-01-26 16:08 | disposition home or self-care (01) ==
PROVIDERS: Emergency Provider Emergency Medicine
DX: R10.9 Unspecified abdominal pain (principal); G89.29 Other chronic pain; G35 Multiple sclerosis; M48.02 Spinal stenosis, cervical region; Z72.0 Tobacco use
CPT/HCPCS: 99282

== ENCOUNTER 2018-01-27 10:08 | Emergency (ER) | payer MEDICARE, SELFPAY ==
[2018-01-27 10:10] VITALS: BP 190/111; PULSE 95; RESP 15; TEMP 36.5; O2SAT 98; BMI 25.8
[2018-01-27 10:13] VITALS: BP 180/106; PULSE 100; RESP 14; O2SAT 98
--- NOTE | 2018-01-27 10:23 | ED.VISSUMM ---
- ER Visit Summary Date of Service: 01/27/18 Chief Complaint: Chest pain History of Present Illness: The patient is a 57 M with crushing chest pain that started today. Nothing seemed to bring it on or make it worse. Nothing has seemed to make it better. He believes it is associated with his right lower quadrant abdominal pain that he has had for 5 years. He believes it is possibly related to MS medication that he stopped over a year ago. He also is concerned that it is artery pain. He has had multiple evaluations for artery problems. He has had CTs, CTAs, ABIs. He has never had vascular surgery or stents. He did have a cardiac catheterization in the past and a stress test about a month ago. He said these were normal. Patient denies cough or shortness of breath. Denies any history of PE. Denies leg swelling or calf pain. Denies hemoptysis. He denies any other GI symptoms. Denies fevers. Physical Examination: Hypertensive but otherwise vitals unremarkable. Afebrile. Alert and oriented. No acute distress. Heart regular rate and rhythm. Lungs clear. Abdomen soft and nontender. Good pulses, symmetric. Skin normal in color without pallor or diaphoresis. Test Results: EKG, laboratory studies, and chest x-ray are pending. Emergency Department Course and Treatment: Patient has had multiple evaluations for artery pain. He had an abdominal CT just over a month ago which was unremarkable. I am not sure what is causing his chronic right lower quadrant pain or what he describes as artery pain. The chest pain seems to be new. Will evaluate with labs, chest x-ray, and EKG. I do have low suspicion for coronary disease, dissection, PE, infection, pneumothorax, or any other emergent intrathoracic pathology. Workup was unremarkable. I cannot find an emergent cause for his artery pain. His chest pain workup is unremarkable. He had negative caths in the past. He had a stress test which was normal 1 month ago. I believe he is appropriate for outpatient follow-up. Patient was discharged. Return for any new or worsening issues. Treatment Plan: As above Disposition: Discharged Impression: 1. Chest pain unclear etiology This note was generated with [employer] software. It may contain incorrect words, spelling, and punctuation that were not noted in review of the chart prior to signing ED Disposition - Plan for ED Patient: Chief Complaint: Chest Pain Referrals: Care Physician,No Primary [Primary Care Provider] -
--- NOTE | 2018-01-27 10:31 | EKG12_ITS ---
Test Reason : CP Blood Pressure : / mmHG Vent. Rate : 098 BPM Atrial Rate : 098 BPM P-R Int : 122 ms QRS Dur : 092 ms QT Int : 358 ms P-R-T Axes : 076 087 059 degrees QTc Int : 457 ms Normal sinus rhythm Nonspecific ST and T wave abnormality Confirmed by LENNY ESPAÑA, JES ([id number]), continuity editor ASHLEY GARCIA ([id number]) on 01/29/2018 1:27:09 PM Referred By: OLAMIDE Confirmed By:JES GALVEZ MD
--- NOTE | 2018-01-27 10:31 | RAD_ITS ---
STUDY: X-RAY CHEST REASON FOR EXAM: Male, 57 years old. Chest pain and right upper quadrant abdominal pain. TECHNIQUE: Single AP portable view of the chest. COMPARISON: Comparison is made with prior study dated November 20, 2017. FINDINGS: EKG electrodes are seen. Hyperinflation. Decreased bronchovascular markings in both lungs worse in the right upper lung suggestive of emphysematous changes and possible bullous formation. There is no demonstrated pleural abnormality. Normal size heart. Normal mediastinum and zachary. Normal visualized pulmonary arteries. Normal visualized aortic arch and descending thoracic aorta. Normal visualized thoracic spine. Normal visualized ribs, clavicles, and shoulders. There is no demonstrated abnormality of the visualized soft tissue structures of the upper abdomen. RAD/Chest 1 View (Portable) IMPRESSION: Hyperinflation. Findings suggestive of emphysema. Electronically Signed: Neftali Hernandez MD at 11:22 EDT Tel [phone], Service support ,
[2018-01-27 10:48] LABS: Absolute Lymphocyte Count 1.65 X10^3/ul (0.83-4.51); Absolute Neutrophil Count 4.6 X10^3/uL (2.0-7.7); Basophil# 0.01 X10^3/uL; Basophil% 0.1 % (0-1); Eosinophil# 0.02 X10^3/uL; Eosinophils% 0.3 % (0-5); Hematocrit 46.9 % (40-54); Hemoglobin 15.8 g/dl (13.0-16.5); Lymphocyte # 1.65 X10^3/ul (4.0); Lymphocyte % 23.4 % (19-41); Mean Corp Hgb Conc 33.7 g/gl (32-36); Mean Corpuscular Volume 95.1 fL (80-94); Mean Platelet Vol. 8.9 fl (6.2-12.0); Monocyte# 0.75 X10^3/uL; Monocyte% 10.7 % (0-10); Neutrophil % 65.4 % (47-70); Platelet Count 214 K/mm3 (150-450); RBC Distribution Width CV 12.9 % (11.6-14.6); RBC Distribution Width SD 44.9 fl (35.1-43.9); Red Blood Count 4.93 M/mm3 (4.6-6.2)
[2018-01-27] MEDS: Morphine 4 MG/ML Syringe IV (10:50)
[2018-01-27] MEDS: Ondansetron 4 MG/2 ML Vial IV (10:50)
[2018-01-27 10:53] LABS: POSITIVE COUNT NO; POSITIVE DIFFERENTIAL NO; POSITIVE MORPHOLOGY NO
[2018-01-27 11:05] LABS: Anion Gap 7 (5-15); BUN 9 mg/dL (7-18); BUN/Creat Ratio 10.7 RATIO (10-20); Calcium,Total 8.6 mg/dL (8.5-10.1); Chloride 101 mmol/L (98-107); Creatinine, Serum 0.84 mg/dL (0.70-1.30); EST Glomerular Filtration Rate 101 mL/min (>60); Est Glom Filt Rate - Afr Amer 122 mL/min (>60); Estimated Creatinine Clearance 104.58 ml/min; Glucose 139 mg/dL (74-106); Potassium 3.8 mmol/L (3.5-5.1); Sodium Level 137 mmol/L (136-145)
--- NOTE | 2018-01-27 11:55 | ED.DEP ---
ED Disposition - Plan for ED Patient: Chief Complaint: Chest Pain Instructions: ED Chest Pain Atypical Unkn Cause Referrals: Care Physician,No Primary [Primary Care Provider] -
[2018-01-27 12:35] VITALS: BP 129/99; PULSE 82; RESP 17; O2SAT 99
== END 2018-01-27 12:38 | disposition home or self-care (01) ==
PROVIDERS: Emergency Provider Emergency Medicine
DX: R07.9 Chest pain, unspecified (principal); J44.9 Chronic obstructive pulmonary disease, unspecified; G35 Multiple sclerosis; F41.9 Anxiety disorder, unspecified; M34.9 Systemic sclerosis, unspecified; Z72.0 Tobacco use; Z79.51 Long term (current) use of inhaled steroids; Z79.82 Long term (current) use of aspirin; Z79.899 Other long term (current) drug therapy
CPT/HCPCS: 71045; 80048; 84484; 85025; 93005; 96374; 96375; 99284; A4216; J2405

== ENCOUNTER 2018-01-31 07:45 | Emergency (ER) | payer MEDICARE, MEDICAID, SELFPAY ==
[2018-01-31 07:49] VITALS: BP 161/101; PULSE 110; RESP 16; TEMP 36.6; O2SAT 98; BMI 26.0
[2018-01-31 07:53] VITALS: PULSE 109
--- NOTE | 2018-01-31 08:06 | EKG12_ITS ---
Test Reason : CP Blood Pressure : / mmHG Vent. Rate : 112 BPM Atrial Rate : 112 BPM P-R Int : 132 ms QRS Dur : 096 ms QT Int : 332 ms P-R-T Axes : 076 089 064 degrees QTc Int : 453 ms Sinus tachycardia Nonspecific ST abnormality Abnormal ECG Confirmed by LENNY HERNANDEZ ([id number]), food expeditor ASHLEY GARCIA ([id number]) on 02/04/2018 8:43:49 AM Referred By: GHISLAINE Confirmed By:LENNY HERNANDEZ
--- NOTE | 2018-01-31 08:10 | ED.VISSUMM ---
- ER Visit Summary Date of Service: 01/31/18 Chief Complaint: Chest pain and abdominal pain History of Present Illness: The patient is a 57 M who presents with lower abdominal pain that became worse today. Patient states he started having some nausea and vomiting today. Patient states he has been having some intermittent pain in his chest. Patient describes it as a heaviness. Patient states nothing makes it better or worse. Patient does admit to some shortness of breath and a cough as well. Patient denies any fevers. Patient denies any lightheadedness or dizziness. Patient denies any palpitations. Patient has a history of chronic right lower quadrant abdominal pain that he states is from a herniorrhaphy several years ago. Physical Examination: Vital signs are stable except for a mild tachycardia of 109 and a slightly elevated blood pressure 161/101. Patient is afebrile. Patient is in no acute distress. Oral mucosa is pink and moist. Neck is supple. Trachea is midline. There is no JVD noted. Heart was regular and tachycardic. Lungs showed expiratory wheezing. There is good respiratory effort noted. Abdomen is soft. Bowel sounds are normal. There is some right lower quadrant tenderness. There is no rebound or guarding noted. Cranial nerves II through XII are intact. There are no focal motor or sensory deficits noted. The remaining physical exam is within normal limits. Test Results: EKG showed a sinus tachycardia with a rate of 112. There are nonspecific ST-T wave changes in the inferior leads. This was unchanged compared to previous EKG dated 01/27/2018. PA and lateral chest x-ray was obtained. A CBC, comprehensive metabolic profile, lipase, and urinalysis were obtained and were all essentially within normal limits. Emergency Department Course and Treatment: Patient was given IV fluids, Toradol, and Zofran here. Patient was given an albuterol aerosol. Patient still complained of some mild lower abdominal pain. Patient was given a dose of morphine. Patient was more concerned with his right lower abdominal pain then his chest pain. Patient currently denies any chest pain. Patient was instructed to follow-up with his primary care physician for further evaluation. Patient understood and was agreeable with the plan. All questions were answered. Disposition: Discharge home Impression: Exacerbation of chronic right lower abdominal pain This note was generated with [employer] software. It may contain incorrect words, spelling, and punctuation that were not noted in review of the chart prior to signing ED Disposition - Plan for ED Patient: Disposition: Home or Assisted Living Chief Complaint: Other, Pain/Inj Diagnosis: Right lower quadrant abdominal pain of unknown etiology Instructions: ED Chronic Pain Management Referrals: Care Physician,No Primary [Primary Care Provider] -
[2018-01-31 08:15] VITALS: BP 173/101; PULSE 97; RESP 18; O2SAT 99
[2018-01-31 08:16] VITALS: PULSE 103; RESP 20; O2SAT 99
[2018-01-31] MEDS: Albuterol 2.5 MG/3 ML VIAL.NEB. INHALATION (08:16)
[2018-01-31] MEDS: Ondansetron 4 MG/2 ML Vial IV (08:27)
[2018-01-31] MEDS: 0.9% Normal Saline 1,000 ML 1000 ML IV (08:27)
[2018-01-31] MEDS: Ketorolac 30 MG/ML Syringe IV (08:27)
--- NOTE | 2018-01-31 08:30 | RAD_ITS ---
STUDY: X-RAY CHEST REASON FOR EXAM: Male, 57 years old. Chest pain. Shortness of breath and dyspnea. History of emphysema. TECHNIQUE: PA and lateral views of the chest. COMPARISON: Comparison is made with prior examination dated January 27, 2018. FINDINGS: EKG electrodes are seen. Hyperinflation. Decreased bronchovascular markings in both lungs worse in the right upper lobe. This is suggestive of emphysema. No acute infiltration is seen. There is no demonstrated pleural abnormality. Normal size heart. Normal mediastinum and zachary. Normal visualized pulmonary arteries. Normal visualized aortic arch and descending thoracic aorta. There are mild degenerative changes of the visualized thoracic spine. Normal visualized ribs, clavicles, and shoulders. There is no demonstrated abnormality of the visualized soft tissue structures of the upper abdomen. RAD/Chest PA and Lateral IMPRESSION: Hyperinflation. No acute abnormality is seen. Electronically Signed: Neftali Hernandez MD at 8:56 EDT Tel [phone], Service support ,
[2018-01-31 08:37] LABS: Absolute Lymphocyte Count 1.81 X10^3/ul (0.83-4.51); Absolute Neutrophil Count 3.6 X10^3/uL (2.0-7.7); Basophil# 0.02 X10^3/uL; Basophil% 0.3 % (0-1); Eosinophil# 0.05 X10^3/uL; Eosinophils% 0.8 % (0-5); Hematocrit 43.9 % (40-54); Hemoglobin 15.2 g/dl (13.0-16.5); Lymphocyte # 1.81 X10^3/ul (4.0); Lymphocyte % 29.1 % (19-41); Mean Corp Hgb Conc 34.6 g/gl (32-36); Mean Corpuscular Hgb 32.8 pg (27.0-32.0); Mean Corpuscular Volume 94.8 fL (80-94); Mean Platelet Vol. 8.9 fl (6.2-12.0); Monocyte# 0.74 X10^3/uL; Monocyte% 11.9 % (0-10); Neutrophil % 57.7 % (47-70); Platelet Count 208 K/mm3 (150-450); RBC Distribution Width CV 12.5 % (11.6-14.6); RBC Distribution Width SD 42.9 fl (35.1-43.9); Red Blood Count 4.63 M/mm3 (4.6-6.2); White Blood Count 6.2 K/mm3 (4.4-11.0)
[2018-01-31 08:38] LABS: POSITIVE COUNT NO; POSITIVE DIFFERENTIAL NO; POSITIVE MORPHOLOGY NO
[2018-01-31 08:53] LABS: ALB/GLOB Ratio 1.1 RATIO (0.9-2.4); AST(SGOT) 11 U/L (15-37); Alanine Aminotransfer ALT/SGPT 21 U/L (16-61); Albumin, Serum 3.5 g/dL (3.2-5.0); Alkaline Phosphatase 66 U/L (45-117); Anion Gap 7 (5-15); BUN 7 mg/dL (7-18); BUN/Creat Ratio 8.6 RATIO (10-20); Calcium,Total 8.1 mg/dL (8.5-10.1); Chloride 102 mmol/L (98-107); Creatinine, Serum 0.82 mg/dL (0.70-1.30); EST Glomerular Filtration Rate 104 mL/min (>60); Est Glom Filt Rate - Afr Amer 125 mL/min (>60); Estimated Creatinine Clearance 107.13 ml/min; Globulin 3.2 g/dL (2.2-4.2); Glucose 127 mg/dL (74-106); Lipase 158 U/L (73-393); Potassium 3.7 mmol/L (3.5-5.1); Protein, Total 6.7 g/dL (6.4-8.2); Sodium Level 137 mmol/L (136-145)
[2018-01-31 09:11] LABS: Bacteria 0 SEEN /hpf (None Seen); Mucous, Urine 0 SEEN /hpf (<or=2+); Red Blood Cells-Urine 0 SEEN /hpf (0-5); White Blood Cells 0 SEEN /hpf (0-5)
[2018-01-31 09:13] LABS: Color, Urine Yellow (Yellow); Glucose, Dipstick Normal (Normal); Ketone-Dipstick Negative (Negative); Leukocyte Esterase-Dipstick 25 /ul (Negative); Nitrite-Dipstick Negative (Negative); Occult Blood-Urine Negative /ul (Negative); Protein-Dipstick Negative (Negative); Specific Gravity, Urine 1.015 (1.002-1.030); Urine Bilirubin Dipstick Negative (Negative); Urine Clarity Sl. Cloudy (Clear); Urine Urobilinogen Normal (Normal)
[2018-01-31 09:19] LABS: Squamous Epithelial Cells - UA 0-5 SEEN /hpf (0-5)
[2018-01-31] MEDS: Morphine 2 MG/ML Syringe IV (09:29)
[2018-01-31 09:32] VITALS: BP 157/102; PULSE 91; RESP 12; O2SAT 98
== END 2018-01-31 09:37 | disposition home or self-care (01) ==
PROVIDERS: Emergency Provider Emergency Medicine
DX: R10.31 Right lower quadrant pain (principal); R07.9 Chest pain, unspecified; G35 Multiple sclerosis; Z72.0 Tobacco use
CPT/HCPCS: 71046; 80053; 81001; 83690; 85025; 93005; 94640; 96361; 96374; 96375; 99284; J7030; A4216; J2405

== ENCOUNTER 2018-02-01 17:09 | Emergency (ER) | payer MEDICARE, MEDICAID, SELFPAY ==
[2018-02-01 17:10] VITALS: BP 161/85; PULSE 117; RESP 18; TEMP 36.8; O2SAT 97; BMI 25.6
[2018-02-01] MEDS: Ondansetron 4 MG/2 ML Vial IM (17:41)
[2018-02-01] MEDS: Ketorolac 60 MG/2 ML Vial IM (17:42)
--- NOTE | 2018-02-01 17:45 | RAD_ITS ---
STUDY: X-RAY - ACUTE ABDOMINAL SERIES REASON FOR EXAM: Male, 57 years old. Lower abdominal pain. TECHNIQUE: Single view of the chest. Supine, 3 view(s) of the abdomen were obtained. COMPARISON: January 31, 2018 FINDINGS: The lungs are clear and expanded. Normal size heart. Normal mediastinum and zachary. Normal visualized pulmonary arteries. Normal visualized aortic arch and descending thoracic aorta. There are air-fluid levels within nondistended loops of bowel, a nonspecific bowel gas pattern. The soft tissue structures of the abdomen and pelvis are unremarkable. There are surgical clips within the right upper quadrant consistent with prior cholecystectomy. Normal visualized osseous structures. RAD/Acute Abdomen Inc Chest IMPRESSION: Nonspecific bowel gas pattern. Electronically Signed: Oneida Peter MD at 18:34 EDT Tel , Service support ,
--- NOTE | 2018-02-01 18:48 | ED.DCSUM_ITS ---
- ER Visit Summary Date of Service: 02/01/18 Chief Complaint: Abdominal pain History of Present Illness: The patient is a 57 M with right lower quadrant abdominal pain. He describes it as a crushing pain. He has had this pain for months. He says he cannot keep anything down but has not vomited or tried. He believes the pain stems from mesh implantation after hernia repair years ago. He has seen multiple surgeons for this and he was told by the surgeons who evaluated him that they could not help his symptoms. He had some diarrhea yesterday. Denies fevers. Denies any urinary symptoms. Patient was seen yesterday for abdominal pain and chest pain. He had a negative workup yesterday. He was at an outside emergency department earlier today and discharged. Physical Examination: Afebrile and vital signs unremarkable except for a blood pressure of 161/85 and a heart rate of 117. Patient is alert and oriented. No acute distress. Sitting comfortably. Moving comfortably. Heart tachycardic but regular. Lungs clear. Abdomen is soft, nontender, nondistended, normal b owel sounds, no masses. There is no tenderness, guarding, or rebound. Back is nontender. Skin appears normal. Test Results: Abdominal x-ray series showed a nonspecific bowel gas pattern. Patient was treated with Toradol, Zofran, and he had a PO challenge. Emergency Department Course and Treatment: I reviewed the patient's previous workups. His workup here consisted of x-rays was unremarkable. Symptoms are consistent with his chronic pain. There is no pain at McBurney's point. He has no new or different symptoms. I do not believe repeat blood work or imaging would be beneficial for this patient, furthermore it could be harmful. I advised the patient that he needs to follow-up with his patients surgeons. Treatment Plan: As above Disposition: Discharge Impression: 1. Right lower quadrant abdominal pain This note was generated with [employer] dictation software. It may contain incorrect words, spelling, and punctuation that were not noted in review of the chart prior to signing ED Disposition - Plan for ED Patient: Chief Complaint: Abd Pain Referrals: Care Physician,No Primary [Primary Care Provider] -
--- NOTE | 2018-02-01 18:48 | ED.DEP ---
ED Disposition - Plan for ED Patient: Chief Complaint: Abd Pain Instructions: ED Abdominal Pain Unkn Cause Male
== END 2018-02-01 18:56 | disposition home or self-care (01) ==
LOC: ED 18:06
PROVIDERS: Emergency Provider Emergency Medicine
DX: R10.31 Right lower quadrant pain (principal); G35 Multiple sclerosis; Z72.0 Tobacco use
CPT/HCPCS: 74022; 96372; 99282; A4216; J2405

== ENCOUNTER 2018-02-20 09:33 | Emergency (ER) | payer MEDICARE, MEDICAID, SELFPAY ==
[2018-02-20 09:33] VITALS: BMI 23.3
[2018-02-20 09:34] VITALS: BP 160/108; PULSE 111; RESP 14; TEMP 37.1; O2SAT 97; BMI 26.6
--- NOTE | 2018-02-20 09:50 | EKG12_ITS ---
Test Reason : CP Blood Pressure : / mmHG Vent. Rate : 113 BPM Atrial Rate : 113 BPM P-R Int : 114 ms QRS Dur : 094 ms QT Int : 328 ms P-R-T Axes : 082 090 049 degrees QTc Int : 449 ms Sinus tachycardia Rightward axis Nonspecific ST abnormality Abnormal ECG Confirmed by AMANDA ESPAÑA, ARLEN ([id number]), newspaper or periodical editor ASHLEY GARCIA ([id number]) on 02/26/2018 11:28:47 AM Referred By: ULISSES Confirmed By:ARLEN PATEL MD
--- NOTE | 2018-02-20 09:53 | ED.VISSUMM ---
- ER Visit Summary Date of Service: 02/20/18 Chief Complaint: [] Feels like shards of metal are going through his body History of Present Illness: The patient is a 57 M [] history of MS for years he indicates he was treated [facility] with the medication he calls bao, about 1 year ago for the MS he says he was given that medication he believes he immediately suffered a reaction that caused him to feel as if shards of metal work coursing through his body the medication was discontinued he was given what he reports was some type of reversal agent or antidote at the time. That did not help he continues to have a sensation at times that his blood is full of metal that is coursing through his body he had a sensation intensified this morning and he called the paramedics and he was brought into the hospital for evaluation. He basically indicates his entire body feels tingly as if metal is coursing through his blood. He has no headache no chest pain no abdominal pain and paresthesias nothing specific, he has no history of SC PE or DVT he does have history of prior hernia mesh repair surgery, anxiety, possibly COPD, he has nonspecific abdominal elements, he is still followed by the [facility] MS clinic they are aware he has persistent symptoms and there is no medications he has been given for the symptoms in fact he states he is not on anything for the MS now Indicates his MS causes him to have paresthesias from the elbows down to the fingertips all digits and that has been chronic and stable and unchanged He indicates he has been seen by physicians for this condition but no one has been able to do anything for him or help him Physical Examination: [] He is resting comforting the bed he heart rate is about 110 blood pressure is 130/80 General, no distress resting comfortably HEENT is generally unremarkable The neck is supple no adenopathy Cardiovascular, regular rate and rhythm Lungs, clear bilateral Abdomen, soft nontender Extremities, no clubbing cyanosis or edema Neurologic, awake alert answering questions appropriately moving all 4 extremities, palpation of his skin his extremities his back revealed no focal areas of abnormalities he has full range of motion of all major joints his pulses are symmetric he is in no distress Test Results: [] Emergency Department Course and Treatment: [] had these symptoms for over a year he had an exacerbation today he is on no chronic medications for all the above, at this time will provide IV fluids morphine and some Ativan screening labs He does have an appointment to see a physician this afternoon at 1 for all the above, and he is interested in keeping that appointment Reviewing some of the patient's chart shows he has had MRCP is a vascular studies of various parts of his body and other tests please see those reports in the computer that were all generally unremarkable, so he is incorrect when he notes that no one has tried to evaluate him for this condition Treatment Plan: [] The patient's EKG lab studies chest x-ray were all generally unremarkable please see those reports, again as above the patient had multiple prior studies for evaluation of this condition there was no acute gross abnormality with any of the studies. I explained to the patient given the long nature of this condition he should follow-up with his primary care for providers, his [facility] MS providers, other outpatient providers, the condition really cannot be further managed from the emergency department, he understands he does have an appointment to see a provider today at 1:00 in the afternoon he will keep that appointment and return for change in symptoms Disposition: [] Home stable Impression: [] Nonspecific whole body diffuse sense of metallic pain for over a year etiology unclear, history of MS This note was generated with [employer] dictation software. It may contain incorrect words, spelling, and punctuation that were not noted in review of the chart prior to signing ED Disposition - Plan for ED Patient: Chief Complaint: General Illness Referrals: Care Physician,No Primary [Primary Care Provider] -
--- NOTE | 2018-02-20 09:57 | RAD_ITS ---
STUDY: X-RAY CHEST REASON FOR EXAM: Male, 57 years old. Chest pain. Generalized illness. TECHNIQUE: Single AP portable view of the chest. COMPARISON: Comparison is made with prior study dated January 31, 2018. FINDINGS: EKG electrodes are seen. Hyperinflation. There are decreased bronchovascular markings in the upper lobes suggestive of emphysematous changes. There is no demonstrated pleural abnormality. Normal size heart. Normal mediastinum and zachary. Normal visualized pulmonary arteries. Normal visualized aortic arch and descending thoracic aorta. Normal visualized thoracic spine. Normal visualized ribs, clavicles, and shoulders. There is no demonstrated abnormality of the visualized soft tissue structures of the upper abdomen. RAD/Chest 1 View (Portable) IMPRESSION: Hyperinflation. Emphysematous changes. No acute abnormality is seen. Electronically Signed: Neftali Hernandez MD at 10:35 EST Tel [phone], Service support ,
--- NOTE | 2018-02-20 09:57 | ED.DCSUM_ITS ---
- ER Visit Summary Date of Service: 02/20/18 Chief Complaint: [] Feels like shards of metal are going through his body History of Present Illness: The patient is a 57 M [] history of MS for years he indicates he was treated [facility] with the medication he calls bao, about 1 year ago for the MS he says he was given that medication he believes he immediately suffered a reaction that caused him to feel as if shards of metal work coursing through his body the medication was discontinued he was given what he reports was some type of reversal agent or antidote at the time. That did not help he continues to have a sensation at times that his blood is full of metal that is coursing through his body he had a sensation intensified this morning and he called the paramedics and he was brought into the hospital for evaluation. He basically indicates his entire body feels tingly as if metal is coursing through his blood. He has no headache no chest pain no abdominal pain and paresthesias nothing specific, he has no history of TN PE or DVT he does have history of prior hernia mesh repair surgery, anxiety, possibly COPD, he has nonspecific abdominal elements, he is still followed by the [facility] MS clinic they are aware he has persistent symptoms and there is no medications he has been given for the symptoms in fact he states he is not on anything for the MS now Indicates his MS causes him to have paresthesias from the elbows down to the fingertips all digits and that has been chronic and stable and unchanged He indicates he has been seen by physicians for this condition but no one has been able to do anything for him or help him Physical Examination: [] He is resting comforting the bed he heart rate is about 110 blood pressure is 130/80 General, no distress resting comfortably HEENT is generally unremarkable The neck is supple no adenopathy Cardiovascular, regular rate and rhythm Lungs, clear bilateral Abdomen, soft nontender Extremities, no clubbing cyanosis or edema Neurologic, awake alert answering questions appropriately moving all 4 extremities, palpation of his skin his extremities his back revealed no focal areas of abnormalities he has full range of motion of all major joints his pulses are symmetric he is in no distress Test Results: [] Emergency Department Course and Treatment: [] had these symptoms for over a year he had an exacerbation today he is on no chronic medications for all the above, at this time will provide IV fluids morphine and some Ativan screening labs He does have an appointment to see a physician this afternoon at 1 for all the above, and he is interested in keeping that appointment Reviewing some of the patient's chart shows he has had MRCP is a vascular studies of various parts of his body and other tests please see those reports in the computer that were all generally unremarkable, so he is incorrect when he notes that no one has tried to evaluate him for this condition Treatment Plan: [] The patient's EKG lab studies chest x-ray were all generally unremarkable please see those reports, again as above the patient had multiple prior studies for evaluation of this condition there was no acute gross abnormality with any of the studies. I explained to the patient given the long nature of this condition he should follow-up with his primary care for providers, his [facility] MS providers, other outpatient providers, the condition really cannot be further managed from the emergency department, he understands he does have an appointment to see a provider today at 1:00 in the afternoon he will keep that appointment and return for change in symptoms Disposition: [] Home stable Impression: [] Nonspecific whole body diffuse sense of metallic pain for over a year etiology unclear, history of MS This note was generated with [employer] dictation software. It may contain incorrect words, spelling, and punctuation that were not noted in review of the chart prior to signing ED Disposition - Plan for ED Patient: Chief Complaint: General Illness Referrals: Care Physician,No Primary [Primary Care Provider] -
[2018-02-20] MEDS: LORazepam 0.5 MG Tablet PO (10:01)
[2018-02-20] MEDS: 0.9% Normal Saline 1,000 ML 1000 ML IV (10:01)
[2018-02-20] MEDS: Ondansetron 4 MG/2 ML Vial IV (10:02)
[2018-02-20] MEDS: morphine 8 MG/ML Syringe IV (10:02)
[2018-02-20 10:04] VITALS: BP 153/107; PULSE 115; RESP 16; O2SAT 96
[2018-02-20 10:15] LABS: Absolute Lymphocyte Count 2.23 X10^3/ul (0.83-4.51); Absolute Neutrophil Count 4.5 X10^3/uL (2.0-7.7); Basophil# 0.01 X10^3/uL; Basophil% 0.1 % (0-1); Eosinophil# 0.06 X10^3/uL; Eosinophils% 0.8 % (0-5); Hematocrit 45.2 % (40-54); Hemoglobin 15.5 g/dl (13.0-16.5); Lymphocyte # 2.23 X10^3/ul (4.0); Lymphocyte % 29.7 % (19-41); Mean Corp Hgb Conc 34.3 g/gl (32-36); Mean Corpuscular Hgb 32.9 pg (27.0-32.0); Mean Platelet Vol. 8.7 fl (6.2-12.0); Monocyte# 0.72 X10^3/uL; Monocyte% 9.6 % (0-10); Neutrophil # 4.47 X10^3/uL (2.7-7.7); Neutrophil % 59.5 % (47-70); Platelet Count 264 K/mm3 (150-450); RBC Distribution Width CV 13.3 % (11.6-14.6); RBC Distribution Width SD 46.1 fl (35.1-43.9); Red Blood Count 4.71 M/mm3 (4.6-6.2); White Blood Count 7.5 K/mm3 (4.4-11.0)
[2018-02-20 10:16] LABS: POSITIVE COUNT NO; POSITIVE DIFFERENTIAL NO; POSITIVE MORPHOLOGY NO
[2018-02-20 10:31] LABS: Anion Gap 9 (5-15); BUN 16 mg/dL (7-18); BUN/Creat Ratio 18.7 RATIO (10-20); Calcium,Total 8.6 mg/dL (8.5-10.1); Chloride 102 mmol/L (98-107); Creatinine, Serum 0.86 mg/dL (0.70-1.30); EST Glomerular Filtration Rate 98 mL/min (>60); Est Glom Filt Rate - Afr Amer 119 mL/min (>60); Estimated Creatinine Clearance 102.15 ml/min; Glucose 120 mg/dL (74-106); Potassium 3.9 mmol/L (3.5-5.1); Sodium Level 137 mmol/L (136-145)
--- NOTE | 2018-02-20 11:19 | DCINST.ED_ITS ---
ED Disposition - Plan for ED Patient: Chief Complaint: General Illness Instructions: ED Paraesthesias Referrals: Care Physician,No Primary [Primary Care Provider] - Additional Instructions: Follow-up with her outpatient provider as scheduled today and your physicians at [facility]
== END 2018-02-20 11:41 | disposition home or self-care (01) ==
LOC: ED 10:12
PROVIDERS: Emergency Provider Emergency Medicine
DX: R44.8 Other symptoms and signs involving general sensations and perceptions (principal); G35 Multiple sclerosis; J44.9 Chronic obstructive pulmonary disease, unspecified; F41.9 Anxiety disorder, unspecified; Z79.51 Long term (current) use of inhaled steroids; Z79.82 Long term (current) use of aspirin; Z79.899 Other long term (current) drug therapy
CPT/HCPCS: 71045; 80048; 84484; 85025; 93005; 96361; 96374; 96375; 99285; J7030; A4216; J2405

== ENCOUNTER 2018-02-26 13:41 | Emergency (ER) | payer MEDICARE, MEDICAID, SELFPAY ==
[2018-02-26 13:44] VITALS: BP 154/91; PULSE 102; RESP 16; TEMP 36.4; O2SAT 100; BMI 25.5
--- NOTE | 2018-02-26 15:03 | EKG12_ITS ---
Test Reason : DYSRHYTHMIA Blood Pressure : / mmHG Vent. Rate : 090 BPM Atrial Rate : 090 BPM P-R Int : 122 ms QRS Dur : 098 ms QT Int : 346 ms P-R-T Axes : 078 089 059 degrees QTc Int : 423 ms Normal sinus rhythm Normal ECG Confirmed by AMANDA ESPAÑA, ARLEN ([id number]), supervising film or videotape editor ASHLEY GARCIA ([id number]) on 02/28/2018 12:03:13 PM Referred By: RICKEY Confirmed By:ARLEN PATEL MD
--- NOTE | 2018-02-26 15:12 | CM.ED ---
Social Work Note Referral from RN, Angelika Mendez, for potential EDCP. Pt has multiple visits for chronic pain. Face to face with the pt who is alert and oriented. Introduced self and role at [facility]. The pt confirms that he does have a PCP in [place] named Zia Espinal that he last saw on , 02/20. States this is a new establishment of care and he just established care on the . Denies having any other specialists presently, but has had multiple in the past. Confirms that he does live with his father in a one-story home. Denies significant access issues, but claims he does have minimal trouble with ambulation and stairs. Denies use of DME and oxygen. Does not see a teacher of the handicapped, but reports to have COPD and mild emphysema. Pt does receive disability for MS and reports to have enough financial stability to meet basic needs. Does report a hx of anxiety and is presently prescribed Lorazepam through [facility]. He does not use counseling regularly, only PRN and has not recently utilized this service. Educate to the connection between COPD and anxiety and that this may also be contributing to the symptoms he is often coming into the ED for. Discuss with the pt that he has had multiple visits for chronic illnesses that are best managed by appropriate specialists and a PCP that are not newly introduced to him every time he presents, as is the situation in the ED as its purpose is to treat acute illnesses. Pt becomes aggravated and begins going into medical history with this headline writer. Educate to services that this headline writer believes would be beneficial to the pt such as CCN, Palliative Care, and Behavioral Health. At this time the pt is only agreeable to a palliative care referral to [facility] after a lengthy explanation. No further needs expressed at this time and pt made aware that SW is available if needs arise. Attending physician will run an OARRS report which will aide this headline writer in developing and EDCP if determined it is needed. PLAN: Palliative Care referral sent to [facility]. Kaia Colón, BEVERLEY, DHRUV
--- NOTE | 2018-02-26 15:46 | ED.DCSUM_ITS ---
- ER Visit Summary Date of Service: 02/26/18 Chief Complaint: Chronic pain and cough History of Present Illness: The patient is a 57 M with a history of chronic pain all over his entire body and ever since he took an MS medication approximately 3 years ago. He has been dealing with this every day for 3 years. There has been no change in the severity or character. He states that he has been worked up multiple times and has seen several different specialist for this. No conclusive cause has been found. He most recently was worked up here and then went to [facility] and received another workup. He has been following with his MS specialist as well and had an recent MRI of his brain. Symptoms have basically been unchanged. He states that the reason he came in today is because he is now coughing and bringing up sputum. He is concerned that he is developing bronchitis. He has chest pain as well but this is chronic and he assures me that it is unchanged in character or severity over several years. No exertional chest pain, diaphoresis, or dyspnea. No lower extremity swelling or history of DVT. Physical Examination: Vital signs are within normal limits. He is not in distress. Neck is supple. Heart tones are regular and without murmur. Lungs are clear bilaterally. Abdomen is soft and nontender. He has no focal or lateralizing neuro findings. Test Results: EKG is unremarkable. Emergency Department Course and Treatment: This is a chronic issue. No new symptoms. He looks quite well. He had an extensive workup here recently as well as at the [facility]. I am not certain what the cause of this chronic pain is it does not appear to be life-threatening. I did check an EKG but he assures me that his chest pain is chronic as well. I do not feel he will benefit from further laboratory studies or imaging at this time given his well appearance. He does feel that he is developing a bronchitis and states that he has had a productive cough for the last 5 days or so. His lungs are clear and his pulse oximetry is normal. He does not have a fever. He feels strongly about at least trying antibiotics for this which I think is reasonable. I will start him on doxycycline. Treatment Plan: We will follow up closely with his specialist and return if worse Disposition: Home stable Impression: Chronic pain, subsequent encounter, lower respiratory tract infection This note was generated with [employer] software. It may contain incorrect words, spelling, and punctuation that were not noted in review of the chart prior to signing ED Disposition - Plan for ED Patient: Chief Complaint: Other, Pain/Inj Instructions: ED Chronic Pain Management, Acute Bronchitis Prescriptions: Doxycycline Monohydrate 100 mg PO BID #14 capsule Referrals: [facility] Doctor,Out of [Primary Care Provider] -
== END 2018-02-26 16:03 | disposition home or self-care (01) ==
LOC: ED 14:38
PROVIDERS: Emergency Provider Emergency Medicine
DX: J22 Unspecified acute lower respiratory infection (principal); G89.29 Other chronic pain; G35 Multiple sclerosis; Z79.51 Long term (current) use of inhaled steroids; Z79.82 Long term (current) use of aspirin; Z79.899 Other long term (current) drug therapy
CPT/HCPCS: 93005; 99282

== ENCOUNTER 2018-04-24 07:52 | Emergency (ER) | payer MEDICARE, SELFPAY ==
[2018-04-24 07:53] VITALS: BP 170/100; PULSE 101; RESP 18; TEMP 36.6; O2SAT 100; BMI 26.0
--- NOTE | 2018-04-24 08:13 | RAD_ITS ---
STUDY: X-RAY CHEST REASON FOR EXAM: Male, 57 years old. CHEST PAIN FROM ABD HERNIA MESH MISPLACEMENT TECHNIQUE: Single AP portable view of the chest. COMPARISON: February 20, 2018 FINDINGS: The lungs are clear and expanded. There is no demonstrated pleural abnormality. Normal size heart. Normal mediastinum and zachary. Normal visualized pulmonary arteries. Normal visualized aortic arch and descending thoracic aorta. Normal visualized thoracic spine. Normal visualized ribs, clavicles, and shoulders. There is no demonstrated abnormality of the visualized soft tissue structures of the upper abdomen. RAD/Chest 1 View (Portable) IMPRESSION: Normal x-ray examination of the chest. Electronically Signed: Cheyenne Rodriguez MD at 9:05 EST , Service support ,
[2018-04-24 08:26] LABS: Absolute Lymphocyte Count 1.78 X10^3/ul (0.83-4.51); Absolute Neutrophil Count 3.5 X10^3/uL (2.0-7.7); Basophil# 0.02 X10^3/uL; Basophil% 0.3 % (0-1); Eosinophils% 1.6 % (0-5); Hemoglobin 16.4 g/dl (13.0-16.5); Lymphocyte # 1.78 X10^3/ul (4.0); Mean Corp Hgb Conc 34.2 g/gl (32-36); Mean Corpuscular Hgb 33.3 pg (27.0-32.0); Mean Corpuscular Volume 97.6 fL (80-94); Mean Platelet Vol. 8.7 fl (6.2-12.0); Monocyte# 0.71 X10^3/uL; Monocyte% 11.6 % (0-10); Neutrophil # 3.51 X10^3/uL (2.7-7.7); Neutrophil % 57.3 % (47-70); Platelet Count 229 K/mm3 (150-450); RBC Distribution Width CV 12.7 % (11.6-14.6); Red Blood Count 4.92 M/mm3 (4.6-6.2); White Blood Count 6.1 K/mm3 (4.4-11.0)
[2018-04-24 08:27] LABS: POSITIVE COUNT NO; POSITIVE DIFFERENTIAL NO; POSITIVE MORPHOLOGY NO
[2018-04-24] MEDS: 0.9% Normal Saline 1,000 ML 125 ML IV (08:32)
[2018-04-24 08:43] LABS: Anion Gap 10 (5-15); BUN 7 mg/dL (7-18); BUN/Creat Ratio 9.2 RATIO (10-20); Calcium,Total 8.9 mg/dL (8.5-10.1); Chloride 99 mmol/L (98-107); Creatinine, Serum 0.76 mg/dL (0.70-1.30); EST Glomerular Filtration Rate 112 mL/min (>60); Est Glom Filt Rate - Afr Amer 136 mL/min (>60); Estimated Creatinine Clearance 115.59 ml/min; Glucose 120 mg/dL (74-106); Potassium 3.8 mmol/L (3.5-5.1); Sodium Level 137 mmol/L (136-145)
--- NOTE | 2018-04-24 08:59 | EKG12_ITS ---
Test Reason : Blood Pressure : / mmHG Vent. Rate : 093 BPM Atrial Rate : 093 BPM P-R Int : 122 ms QRS Dur : 092 ms QT Int : 366 ms P-R-T Axes : 079 085 069 degrees QTc Int : 455 ms Normal sinus rhythm Normal ECG Confirmed by AMANDA ESPAÑA, ARLEN ([id number]), editor managing director RUSSELL LOCKHART ([id number]) on 04/28/2018 9:23:03 AM Referred By: ANDREW Confirmed By:ARLEN PATEL MD
[2018-04-24] MEDS: Aspirin 81 MG TAB.CHEW 324 MG PO (09:05)
[2018-04-24 09:06] VITALS: BP 160/103; PULSE 87
[2018-04-24 09:11] VITALS: BP 149/96; PULSE 90
[2018-04-24 09:21] VITALS: BP 150/93; PULSE 91
--- NOTE | 2018-04-24 09:39 | ED.VISSUMM ---
- ER Visit Summary Date of Service: 04/24/18 Chief Complaint: [Abdomen and chest pain] History of Present Illness: The patient is a 57 M [presents the emergency department complaint of pain in the lower abdomen that then radiates up into his chest. Patient describes it as sharp and at times heaviness. Patient feels short of breath with it at times and nauseated. Patient has had this ongoing pain for over 2 years. Patient has seen multiple specialists including pain management and general surgeons. Patient believes his troubles started several years ago when he had mesh repair of a hernia. Patient has since seen multiple surgeons and actually had surgery a month ago to evaluate the hernia and mesh at [facility]. Patient was told that the initial mesh was placed over an artery and now was embedded into the artery and there was nothing that they could do to retry to remove the mesh. Patient was told to find a more specialized surgeon therefore he made a appointment with vascular surgeon whom he is not seen yet. Patient tells me that he has no cardiac history and did have a stress test 3-4 months ago that was normal. Patient denies recent travel or surgery. Patient has a history of COPD, hypertension, high cholesterol, chronic abdominal pain, GERD.] Patient states that he was on a medication a year and a half ago [facility] that caused little slivers to form in his bloodstream and he could feel that was going through his arteries and veins and feels that that may be contributed to the adhesions in his abdomen and is concerned about a blockage in blood flow. Physical Examination: [HEENT-PERRLA, EOMI. Cranial nerves II through XII grossly intact. TMs clear. Mucous membranes moist. No adenopathy. Cardiovascular-regular rate and rhythm without murmur or ectopy Lungs-clear to auscultation, chest wall stable without crepitus or subcu emphysema Abdomen-normoactive bowel sounds, soft. Patient has diffuse tenderness palpation to the lower abdomen. There is no rebound, rigidity, or perineal signs. No incarcerated hernias or masses palpated. Extremities-intact ?4, normal range of motion, normal pulses, atraumatic. Patient has normal pulses in his lower extremities bilaterally.] Test Results: [CBC with differential obtained was normal. Chemistries were normal. Troponin was less than 0.015. D-dimer was normal at 0.4. Chest x-ray was normal. And EKG showed sinus rhythm with a ventricular rate of 93 bpm with no acute I segment changes.] Emergency Department Course and Treatment: [Received aspirin in the emergency department and sublingual nitroglycerin which did not give him any pain relief.] Treatment Plan: [At this point I am not convinced that his pain is cardiac in origin and he is adamant that all this is emanating from his abdomen and his chronic issues. Patient had recent stress test and his current workup in the ER is unremarkable. I do not feel patient needs any further imaging. Patient will be referred to his physicians for follow-up as well as cardiology if chest pain should continue.] Disposition: [Discharged home in stable condition] Impression: [Abdominal pain Chest pain-atypical] This note was generated with [employer] dictation software. It may contain incorrect words, spelling, and punctuation that were not noted in review of the chart prior to signing ED Disposition - Plan for ED Patient: Chief Complaint: Abd Pain Referrals: Care Physician,No Primary [Primary Care Provider] -
--- NOTE | 2018-04-24 09:44 | ED.DCSUM_ITS ---
- ER Visit Summary Date of Service: 04/24/18 Chief Complaint: [Abdomen and chest pain] History of Present Illness: The patient is a 57 M [presents the emergency department complaint of pain in the lower abdomen that then radiates up into his chest. Patient describes it as sharp and at times heaviness. Patient feels short of breath with it at times and nauseated. Patient has had this ongoing pain for over 2 years. Patient has seen multiple specialists including pain management and general surgeons. Patient believes his troubles started several years ago when he had mesh repair of a hernia. Patient has since seen multiple surgeons and actually had surgery a month ago to evaluate the hernia and mesh at [facility]. Patient was told that the initial mesh was placed over an artery and now was embedded into the artery and there was nothing that they could do to retry to remove the mesh. Patient was told to find a more specialized surgeon therefore he made a appointment with vascular surgeon whom he is not seen yet. Patient tells me that he has no cardiac history and did have a stress test 3-4 months ago that was normal. Patient denies recent travel or surgery. Patient has a history of COPD, hypertension, high cholesterol, chronic abdominal pain, GERD.] Patient states that he was on a medication a year and a half ago [facility] that caused little slivers to form in his bloodstream and he could feel that was going through his arteries and veins and feels that that may be contributed to the adhesions in his abdomen and is concerned about a blockage in blood flow. Physical Examination: [HEENT-PERRLA, EOMI. Cranial nerves II through XII grossly intact. TMs clear. Mucous membranes moist. No adenopathy. Cardiovascular-regular rate and rhythm without murmur or ectopy Lungs-clear to auscultation, chest wall stable without crepitus or subcu emp hysema Abdomen-normoactive bowel sounds, soft. Patient has diffuse tenderness palpation to the lower abdomen. There is no rebound, rigidity, or perineal signs. No incarcerated hernias or masses palpated. Extremities-intact ?4, normal range of motion, normal pulses, atraumatic. Patient has normal pulses in his lower extremities bilaterally.] Test Results: [CBC with differential obtained was normal. Chemistries were normal. Troponin was less than 0.015. D-dimer was normal at 0.4. Chest x-ray was normal. And EKG showed sinus rhythm with a ventricular rate of 93 bpm with no acute I segment changes.] Emergency Department Course and Treatment: [Received aspirin in the emergency department and sublingual nitroglycerin which did not give him any pain relief.] Treatment Plan: [At this point I am not convinced that his pain is cardiac in origin and he is adamant that all this is emanating from his abdomen and his chronic issues. Patient had recent stress test and his current workup in the ER is unremarkable. I do not feel patient needs any further imaging. Patient will be referred to his physicians for follow-up as well as cardiology if chest pain should continue.] Disposition: [Discharged home in stable condition] Impression: [Abdominal pain Chest pain-atypical] This note was generated with [employer] dictation software. It may contain incorrect words, spelling, and punctuation that were not noted in review of the chart prior to signing ED Disposition - Plan for ED Patient: Chief Complaint: Abd Pain Referrals: Care Physician,No Primary [Primary Care Provider] -
--- NOTE | 2018-04-24 09:45 | ED.DEP ---
ED Disposition - Plan for ED Patient: Chief Complaint: Abd Pain Instructions: ED Abdominal Pain Unkn Cause Male, ED Chest Pain Atypical Unkn Cause Referrals: Care Physician,No Primary [Primary Care Provider] - Arielle Mesa MD [STAFF PHYSICIAN] - 3-5 Days
[2018-04-24 10:02] VITALS: BP 145/72; PULSE 68; RESP 17; O2SAT 96
--- OUTSIDE RECORDS SUMMARY | 2018-06-28 20:59 | XMS RPT_ITS ---
:1960 Author Organization OHIP Support Name Relationship Address Phone D Unavailable Unavailable Unavailable MAURICIO, MACIEJ [facility]available [facility] [address] + [place] [address] Dedrick Martínezkie Unavailable Unavailable + DROUHARD PRISCILLA Unavailable Unavailable + MAURICIO, GENTRY Unavailable Unavailable + MAURICIO, GENTRY Unavailable Unavailable + DROUHARD, PRISCILLA Unavailable Unavailable + MAURICIO, GENTRY Unavailable Unavailable + MAURICIO, GENTRY Unavailable Unavailable + GENTRYSHAHZAD GARCIA Unavailable Unavailable + DROUHARD, PRISCILLA Unavailable Unavailable + MAURICIO, GENTRY Unavailable Unavailable + MAURICIO, GENTRY Unavailable Unavailable + Mauricio, Gentry Unavailable Unavailable + DROUHARD, PRISCILLA Unavailable Unavailable + MAURICIO, GENTRY Unavailable Unavailable + MAURICIO, GENTRY Unavailable Unavailable + MUSCLEFELIPE, MACIEJ Unavailable [address] + [place] [address] DROUHARD PRISCILLA Unavailable Unavailable + MAURICIO, GENTRY Unavailable Unavailable + MAURICIO, GENTRY Unavailable Unavailable + DROUHARD, PRISCILLA Unavailable Unavailable + MAURICIO, GENTRY Unavailable Unavailable + MAURICIO, GENTRY Unavailable Unavailable + DROUHARD, OLIVER Unavailable Unavailable Unavailable MAURICIO, MACIEJ Unavailable Unavailable Unavailable D Unavailable Unavailable Unavailable MAURICIO, MACIEJ Unavailable [address] + [place] [address] D Unavailable Unavailable Unavailable MAURICIO, MACIEJ Unavailable [address] + [place] [address] D Unavailable Unavailable Unavailable MAURICIO, MACIEJ Unavailable [address] + [place] [address] DROUHARD, PRISCILLA Unavailable Unavailable + MAURICIO, GENTRY Unavailable Unavailable + MAURICIO, GENTRY Unavailable Unavailable + D Unavailable Unavailable Unavailable MAURICIO, MACIEJ Unavailable [address] + [place] [address] D Unavailable Unavailable Unavailable MAURICIO, MACIEJ Unavailable [address] + [place] [address] D Unavailable Unavailable Unavailable MAURICIO, MACIEJ Unavailable [address] + [place] [address] DROUHARD, PRISCILLA Unavailable Unavailable + MUARICIO, GENTRY Unavailable Unavailable + MAURICIO, GENTRY Unavailable Unavailable + MUSSELNAVJOT MACIEJ Unavailable Unavailable Unavailable DROUHARD, PRISCILLA Unavailable Unavailable + MAURICIO, GENTRY Unavailable Unavailable + MAURICIO, GENTRY Unavailable Unavailable + Mauricio, Gentry Unavailable Unavailable + D Unavailable Unavailable Unavailable MAURICIO, MACIEJ Unavailable [address] + [place] [address] NOT GIVEN Unavailable Unavailable Unavailable D Unavailable Unavailable Unavailable MAURICIO, MACIEJ Unavailable [address] + [place] [address] DROUHARD, PRISCILLA Unavailable Unavailable + MAURICIO, GENTRY Unavailable Unavailable + MAURICIO, GENTRY Unavailable Unavailable + Mauricio, Gentry Unavailable Unavailable + DROUHARD, PRISCILLA Unavailable Unavailable + MAURICIO, GENTRY Unavailable Unavailable + MAURICIO, GENTRY Unavailable Unavailable + Mauricio, Gentry Unavailable Unavailable + D Unavailable Unavailable Unavailable MAURICIO, MACIEJ Unavailable [address] + [place] [address] D Unavailable Unavailable Unavailable MAURICIO, MACIEJ Unavailable [address] + [place] [address] D Unavailable Unavailable Unavailable MAURICIO, MACIEJ Unavailable [address] + [place] [address] Mauricio, Gentry Unavailable Unavailable + MAURICIO, GENTRY Unavailable Unavailable + MAURICIO, GENTRY Unavailable Unavailable + Mauricio, Gentry Unavailable Unavailable + Mauricio, Gentry Unavailable Unavailable + MAURICIO, GENTRY Unavailable Unavailable + MAURICIO, GENTRY Unavailable Unavailable + MAURICIO, GENTRY Unavailable Unavailable + MAURICIO, GENTRY Unavailable Unavailable + Mauricio, Gentry Unavailable Unavailable + Mauricio, Gentry Unavailable Unavailable + MAURICIO, GENTRY Unavailable Unavailable + MAURICIO, GENTRY Unavailable Unavailable + MAURICIO, Unavailable Unavailable + NOT GIVEN Unavailable Unavailable Unavailable MAURICIO, GENTRY Unavailable Unavailable + MAURICIO, GENTRY Unavailable Unavailable + NELIKAHLIL OLIVER Unavailable Unavailable Unavailable MAURICIO, MACIEJ Unavailable Unavailable Unavailable Mauricio, Gentry Unavailable Unavailable + MAURICIO, GENTRY Unavailable Unavailable + MAURICIO, GENTRY Unavailable Unavailable + Mauricio, Gentry Unavailable Unavailable + D Unavailable Unavailable Unavailable MAURICIO, MACIEJ Unavailable [address] + [place] [address] Mauricio, Gentry Unavailable Unavailable + MUSSLEMAN, GENTRY Unavailable Unavailable + MUSSLEMAN, GENTRY Unavailable Unavailable + MUSSLEMAN, GENTRY Unavailable Unavailable + MUSSLEMAN, GENTRY Unavailable Unavailable + MUSSLEMAN, GENTRY Unavailable Unavailable + MUSSLEMAN, GENTRY Unavailable Unavailable + MUSSLEMAN, GENTRY Unavailable Unavailable + MAURICIO, Unavailable Unavailable + NOT GIVEN Unavailable Unavailable Unavailable Mauricio, Gentry Unavailable Unavailable + Mauricio, Gentry Unavailable Unavailable + Mauricio, Gentry Unavailable Unavailable + Mauricio, Gentry Unavailable Unavailable + Mauricio, Gentry Unavailable Unavailable + Mauricio, Gentry Unavailable Unavailable + D Unavailable Unavailable Unavailable MAURICIO, MACIEJ Unavailable [address] + [place] [address] Mauricio, Gentry Unavailable Unavailable + Mauricio, Gentry Unavailable Unavailable + Mauricio, Gentry Unavailable Unavailable + Mauricio, Gentry Unavailable Unavailable + MAURICIO, Unavailable UNKNOWN,[place] [address] + Mauricio, Gentry Unavailable Unavailable + MAURICIO, GENTRY Unavailable Unavailable + MAURICIO, GENTRY Unavailable Unavailable + MAURICIO, Unavailable UNKNOWN,[place] [address] + Mauricio, Gentry Unavailable Unavailable + Mauricio, Gentry Unavailable Unavailable + Mauricio, Gentry Unavailable Unavailable + Mauricio, Gentry Unavailable Unavailable + Mauricio, Gentry Unavailable Unavailable + Mauricio, Gentry Unavailable Unavailable + Mauricio, Gentry Unavailable Unavailable + Mauricio, Gentry Unavailable Unavailable + Mauricio, Gentry Unavailable Unavailable + MAURICIO, Unavailable UNKNOWN,[place] [address] + Mauricio, Gentry Unavailable Unavailable + GENTRY MUSSERMAN Unavailable Unavailable + NOT GIVEN Unavailable Unavailable Unavailable MAURICIO, Unavailable UNKNOWN,[place] [address] + D Unavailable Unavailable Unavailable MAURICIO, MACIEJ Unavailable [address] + [place] [address] GENTRY, MUSSERMAN Unavailable Unavailable + D Unavailable Unavailable Unavailable MAURICIO, MACIEJ Unavailable [address] + [place] [address] Mauricio, Gentry Unavailable Unavailable + Mauricio, Gentry Unavailable Unavailable + MAURICIO, GENTRY Unavailable Unavailable + MAURICIO, GENTRY Unavailable Unavailable + D Unavailable Unavailable Unavailable MAURICIO, MACIEJ Unavailable [address] + [place] [address] MAURICIO, GENTRY Unavailable Unavailable + MAURICIO, GENTRY Unavailable Unavailable + Care Team Providers Name Role Phone Physician, No Family Primary Care Unavailable Physician, No Family Consulting Unavailable Teresita Sykes Attending Unavailable Physician, No Family Primary Care Unavailable Physician, No Family Consulting Unavailable Sophy Alcocer Attending Unavailable Physician, No Family Primary Care Unavailable Physician, No Family Consulting Unavailable Eugenio Tompkins Admitting Unavailable Eugenio Tompkins Attending Unavailable Physician, No Family Primary Care Unavailable Physician, No Family Consulting Unavailable SYDNIE Rod Attending Unavailable UNKNOWN, PCP Primary Care Unavailable Jude, Dr. Masters Admitting Unavailable Jose, Dr. Margarito Hopson Attending Unavailable UNKNOWN, PCP Primary Care Unavailable ARABELLA ROTHMAN Attending Unavailable UNKNOWN, PCP Primary Care Unavailable Sandra Young Attending Unavailable IMCA Primary Care Unavailable KAIA KLINE Attending Unavailable NATALYA, ADÁN Attending Unavailable NATALYA, ADÁN Referring Unavailable SARAH, ISABEL Ardon Attending Unavailable SELF, SELF Referring Unavailable ALAEDRYAN, INOCENCIO Attending Unavailable KATE BENAVIDEZ Referring Unavailable SARI, GLORIA Thayer Attending Unavailable ABI, JES Terry Attending Unavailable JEFF, GENESIS Ji Attending Unavailable MYLES SANCHEZ Attending Unavailable DENITASEDESTINEE Panchal Referring Unavailable FARIBA GONZALEZ Attending Unavailable EUGENIO REYNOSO Attending Unavailable PROVIDER, UNKNOWN Referring Unavailable No, PCP Primary Care Unavailable Izzy Cr Attending Unavailable PROVIDER, UNKNOWN Referring Unavailable No, PCP Primary Care Unavailable James Joseph Attending Unavailable Rik Avila Attending Unavailable Asim, Cortney Referring Unavailable Asim, Cortney Primary Care Unavailable MassimopaRuy south Attending Unavailable Asim, Cortney Referring Unavailable Asim, Cortney Primary Care Unavailable PROVIDER, UNKNOWN Attending Unavailable Asim, Cortney Referring Unavailable Asim, Cortney Primary Care Unavailable PROVIDER, UNKNOWN Referring Unavailable Kate Benavidez Primary Care Unavailable Rik Avila Attending Unavailable PROVIDER, UNKNOWN Referring Unavailable Kate Benavidez Primary Care Unavailable Mandy Maddox Attending Unavailable GER LUNA Attending Unavailable Asim, Cortney Referring Unavailable Asim, Cortney Primary Care Unavailable OsapayRuy Attending Unavailable Asim, Cortney Referring Unavailable Asim, Cortney Primary Care Unavailable Asim, Cortney Referring Unavailable Asim, Cortney Primary Care Unavailable UNKNOWN, PROVIDER Attending Unavailable OsapayRuy Attending Unavailable Asim, Ocrtney Referring Unavailable Asim, Cortney Primary Care Unavailable Asim, Cortney Referring Unavailable Asim, Cortney Primary Care Unavailable PROVIDER, UNKNOWN Attending Unavailable Asim, Cortney Referring Unavailable Asim, Cortney Primary Care Unavailable PROVIDER, UNKNOWN Attending Unavailable Asim, Cortney Referring Unavailable Asim, Cortney Primary Care Unavailable Elisa Sebastian Attending Unavailable Asim, Cortney Referring Unavailable Asim, Cortney Primary Care Unavailable UNKNOWN, PROVIDER Attending Unavailable Ruy Wu Attending Unavailable Asim, Cortney Referring Unavailable Asim, Cortney Primary Care Unavailable OsapayRuy Attending Unavailable Asim, Cortney Referring Unavailable Asim, Cortney Primary Care Unavailable Keagan Rainey Attending Unavailable PROVIDER, UNKNOWN Referring Unavailable Marco Antonio, Ruben C Primary Care Unavailable Asim, Cortney Referring Unavailable Asim, Cortney Primary Care Unavailable Kait Rasmussen Attending Unavailable OsapayRuy Attending Unavailable Asim, Cortney Referring Unavailable Asim, Cortney Primary Care Unavailable Asim, Cortney Referring Unavailable Asim, Cotrney Primary Care Unavailable PROVIDER, UNKNOWN Attending Unavailable Asim, Cortney Referring Unavailable Asim, Cortney Primary Care Unavailable Gre Botello Attending Unavailable Asim, Cortney Referring Unavailable Asim, Cortney Primary Care Unavailable JAVI MAYORGA Attending Unavailable Asim, Cortney Referring Unavailable Asim, Cortney Primary Care Unavailable MARCELLE PEREZ Attending Unavailable Kait Rasmussen Attending Unavailable Asim, Cortney Referring Unavailable Asim, Cortney Primary Care Unavailable Asim, Cortney Referring Unavailable Asim, Cortney Primary Care Unavailable Kamila Castellanos Attending Unavailable Jes Mcghee Attending Unavailable PROVIDER, UNKNOWN Referring Unavailable Schmees, Ger Primary Care Unavailable Asim, Cortney Referring Unavailable Asim, Ocrtney Primary Care Unavailable KATY GRANDE Attending Unavailable Francois Sorto Attending Unavailable Asim, Cortney Referring Unavailable Asim, Cortney Primary Care Unavailable Katie Walsh Attending Unavailable Asim, Cortney Referring Unavailable Asim, Cortney Primary Care Unavailable PROVIDER, UNKNOWN Referring Unavailable Schmees, Ger Primary Care Unavailable Genesis Simmons Attending Unavailable Francois Sorto Attending Unavailable PROVIDER, UNKNOWN Referring Unavailable Schmees, Ger Primary Care Unavailable PROVIDER, UNKNOWN Referring Unavailable No, PCP Primary Care Unavailable Keagan Rainey Attending Unavailable PROVIDER, UNKNOWN Referring Unavailable No, PCP Primary Care Unavailable Keagan Rainey Attending Unavailable PROVIDER, UNKNOWN Attending Unavailable PROVIDER, UNKNOWN Referring Unavailable Marco Antonio, Ruben C Primary Care Unavailable PROVIDER, UNKNOWN Referring Unavailable Marco Antonio, Ruben C Primary Care Unavailable PROVIDER, UNKNOWN Attending Unavailable JEREMY CURRY Attending Unavailable BENAVIDEZ DO, KATE Primary Care Unavailable CELESTINA IBARRA, KATE Primary Care Unavailable DONNA MONTALVO Attending Unavailable DONNA MONTALVO Attending Unavailable CELESTINA DO, KATE Primary Care Unavailable PHYSICIAN, NONE Primary Care Unavailable LAURA IBARRA, DR. BRAYDEN Roy Attending Unavailable [facility] Referring Unavailable PHYSICIAN, NONE Primary Care Unavailable JES PITT Attending Unavailable PHYSICIAN, NONE Referring Unavailable JOIE HARTMAN, DR. PIMENTEL Attending Unavailable PHYSICIAN, NONE Primary Care Unavailable ELIZABETH PEÑA Attending Unavailable PHYSICIAN, NONE Primary Care Unavailable MARII GARCIA DO Attending Unavailable PHYSICIAN, NONE Primary Care Unavailable PHYSICIAN, NONE Primary Care Unavailable KAMILA GONSALEZ MD Attending Unavailable PHYSICIAN, NONE Referring Unavailable PHYSICIAN, NONE Primary Care Unavailable ROSMERY LAMB MD Attending Unavailable CHRISTOPHER HARTMAN, DR. PRICE Referring Unavailable JEREMY CURRY Attending Unavailable PHYSICIAN, NONE Primary Care Unavailable DAMION CEJA MD Attending Unavailable PHYSICIAN, NONE Primary Care Unavailable KEEGAN MTZ Attending Unavailable PHYSICIAN, NONE Primary Care Unavailable Annalisa Tan MD Attending Unavailable PHYSICIAN, NONE Primary Care Unavailable DAMION CEJA MD Attending Unavailable PHYSICIAN, NONE Primary Care Unavailable DAMION CEJA MD Attending Unavailable PHYSICIAN, NOT RECORDED Primary Care Unavailable PHYSICIAN, NOT RECORDED Primary Care Unavailable JES PITT Attending Unavailable DAMION CEJA MD Attending Unavailable PHYSICIAN, NOT RECORDED Primary Care Unavailable PHYSICIAN, NOT RECORDED Primary Care Unavailable TOAN CH DO Attending Unavailable LILA IBANEZ MD, JR. Referring Unavailable PHYSICIAN, NOT RECORDED Primary Care Unavailable JES PITT Attending Unavailable NO, PHYSICIAN Primary Care Unavailable MARY ELLEN MERRITT Admitting Unavailable BATOOL QUIJANO Consulting Unavailable KATHY SUAZO Attending Unavailable BenavidezJustinoKate Attending Unavailable Benavidez, Kate Referring Unavailable Benavidez, Kate Primary Care Unavailable Primay Care Physicia, No Primary Care Unavailable Nicki Carl Attending Unavailable Javi Cuellar Attending Unavailable Benavidez, Kate Primary Care Unavailable Primay Care Physicia, No Primary Care Unavailable Ace Krishnamurthy Attending Unavailable Primay Care Physicia, No Primary Care Unavailable Kathleen Bunn Attending Unavailable Primay Care Physicia, No Primary Care Unavailable Lenny Eubanks Attending Unavailable Primay Care Physicia, No Primary Care Unavailable Lenny Eubanks Attending Unavailable Ovalle, Elizabeth A Attending Unavailable Elizabeth Ovalle Referring Unavailable Primay Care Physicia, No Primary Care Unavailable Primay Care Physicia, No Primary Care Unavailable Jes Mitchell Attending Unavailable Primay Care Physicia, No Primary Care Unavailable Javi Cuellar Attending Unavailable Primay Care Physicia, No Primary Care Unavailable Sabas Winters Attending Unavailable Primay Care Physicia, No Primary Care Unavailable Ace Krishnamurthy Attending Unavailable Magalys, Riccardo Edward Attending Unavailable Primay Care Physicia, No Primary Care Unavailable Magalys, Riccardo Edward Attending Unavailable Magalys, Dagoberto Referring Unavailable Benavidez, Kate Primary Care Unavailable Primay Care Physicia, No Primary Care Unavailable Vinh Monae Attending Unavailable Primay Care Physicia, No Primary Care Unavailable Nelda Esteban Attending Unavailable Benavidez, Kate Primary Care Unavailable VianeySabas Attending Unavailable RICHARD, GER T Admitting Unavailable RICHARD, GER T Attending Unavailable RICHARD, GER T Primary Care Unavailable LILA IBANEZ MD Consulting Unavailable PROVIDER, UNKNOWN Consulting Unavailable CHRISTINA MORALES CNP Admitting Unavailable CHRISTINA MORALES CNP Attending Unavailable CHRISTINA MORALES CNP Primary Care Unavailable CHRISTINA MORALES CNP Consulting Unavailable PROVIDER, UNKNOWN Consulting Unavailable PROVIDER, UNKNOWN Consulting Unavailable RIK STERLING DO Admitting Unavailable RIK STERLING DO Attending Unavailable CHRISTINA MORALES CNP Referring Unavailable RIK STERLING DO Primary Care Unavailable CHRISTINA MORALES CNP Consulting Unavailable PROVIDER, UNKNOWN Consulting Unavailable PROVIDER, UNKNOWN Consulting Unavailable GLORIA GONZÁLES DO Admitting Unavailable VOLLGLORIA DO Attending Unavailable NO, DOCTOR ON Referring Unavailable VOLGLORIA Panchal DO Primary Care Unavailable NO, DOCTOR ON Consulting Unavailable HANDY RALPH Attending Unavailable KAIA KLINE Attending Unavailable HANDY RALPH Attending Unavailable ADAM MCINTOSH Attending Unavailable PROVIDER, UNKNOWN Admitting Unavailable MARGARITO BERMUDEZ Attending Unavailable PROVIDER, UNKNOWN Admitting Unavailable AVINASH CHESTER Attending Unavailable PROVIDER, UNKNOWN Admitting Unavailable AVINASH CHESTER Attending Unavailable PROVIDER, UNKNOWN Admitting Unavailable PROVIDER, UNKNOWN Attending Unavailable PROVIDER, UNKNOWN Admitting Unavailable SHAYNA RIVERA Attending Unavailable PROVIDER, UNKNOWN Admitting Unavailable PROVIDER, UNKNOWN Attending Unavailable PROVIDER, UNKNOWN Admitting Unavailable PROVIDER, UNKNOWN Attending Unavailable DEPT, EMERGENCY Referring Unavailable Jayy Lopez Attending Unavailable Sttaz Cnty, Emergency Physicians Attending Unavailable Marco Antonio, Addison C Admitting Unavailable Marco AntonioAddison cabrera C Attending Unavailable Stk Cnty, Emergency Physicians Attending Unavailable Addison Bernard C Primary Care Unavailable Katy Zheng S Attending Unavailable Addison Bernard C Primary Care Unavailable Boutsicaris, Katy S Attending Unavailable BoutsicarisKaty S Primary Care Unavailable Marco AntonioLauryAddison C Primary Care Unavailable Boutsicaris, Katy S Attending Unavailable Marco AntonioAddison cabrera C Primary Care Unavailable Boutsicaris, Katy S Attending Unavailable Stk Cnty, Emergency Physicians Attending Unavailable Marco AntonioLauryAddison C Primary Care Unavailable Stk Cnty, Emergency Physicians Attending Unavailable Marco Antonio, Addison C Primary Care Unavailable No Doctor Assigned, Nodr Primary Care Unavailable Hannah, Yasmeen A Admitting Unavailable Hannah, Yasmeen A Attending Unavailable No Doctor Assigned, Nodr Primary Care Unavailable Rings, Sj Admitting Unavailable Rings Sj Attending Unavailable Sokari, Telemate Admitting Unavailable Sokarbhavna, Telemate Attending Unavailable Kate Benavidez Primary Care Unavailable Kate Benavidez Primary Care Unavailable AsbridTessa sue Admitting Unavailable Asbridvikram Tessa Attending Unavailable Kate Benavidez Primary Care Unavailable Zechariah Matthews Admitting Unavailable Zechariah Matthews Attending Unavailable PROBLEMS PROBLEMS DATE TYPE CONDITION / CODE ATTENDING STATUS SOURCE 04/21/2018 Admitting Anxiety disorder, Unknown Active [facility] Diagnosis unspecified / System F41.9(ICD-10) Repository 04/21/2018 Admitting Essential (primary) Unknown Active [facility] Diagnosis hypertension / System I10(ICD-10) Repository 04/21/2018 Admitting Multiple sclerosis Unknown Active [facility] Diagnosis / G35(ICD-10) System Repository 04/21/2018 Admitting Acquired absence of Unknown Active [facility] Diagnosis other specified System parts of digestive Repository tract / Z90.49(ICD-10) 04/21/2018 Admitting Allergy status to Unknown Active [facility] Diagnosis narcotic agent System status / Repository Z88.5(ICD-10) 04/21/2018 Admitting Allergy status to Unknown Active [facility] Diagnosis other antibiotic System agents status / Repository Z88.1(ICD-10) 04/21/2018 Admitting Allergy status to Unknown Active [facility] Diagnosis oth drug/meds/biol System subst status / Repository Z88.8(ICD-10) 04/21/2018 Admitting Allergy status to Unknown Active [facility] Diagnosis penicillin / System Z88.0(ICD-10) Repository 04/21/2018 Admitting Nicotine Unknown Active [facility] Diagnosis dependence, System cigarettes, Repository uncomplicated / F17.210(ICD-10) 04/21/2018 Admitting Unspecified Unknown Active [facility] Diagnosis abdominal pain / System R10.9(ICD-10) Repository 04/21/2018 Admitting Chest pain, Unknown Active [facility] Diagnosis unspecified / System R07.9(ICD-10) Repository 04/21/2018 Admitting Emphysema, Unknown Active [facility] Diagnosis unspecified / System J43.9(ICD-10) Repository 04/21/2018 Admitting Fibromyalgia / Unknown Active [facility] Diagnosis M79.7(ICD-10) System Repository 04/21/2018 Admitting Allergy status to Unknown Active [facility] Diagnosis sulfonamides status System / Z88.2(ICD-10) Repository 04/15/2018 Final diagnosis Syncope and [facility] (discharge) collapse / A Hospitals R55(ICD-10) Repository 04/15/2018 Final diagnosis Multiple sclerosis [facility] (discharge) / G35(ICD-10) [facility] Repository 04/15/2018 Final diagnosis Allergy status to [facility] (discharge) penicillin / A [facility] Z88.0(ICD-10) Repository 04/15/2018 Final diagnosis Myalgia, other site [facility] (discharge) / M79.18(ICD-10) [facility] Repository 04/15/2018 Active Syncope and [facility] collapse / [facility] R55(ICD-10) Repository 04/15/2018 Active Myalgia, other site [facility] / M79.18(ICD-10) [facility] Hospit[facility] Repository 04/05/2018 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 / System Z79.82(ICD-10) Repository 04/05/2018 Admitting Allergy status to Unknown Active [facility] Diagnosis analgesic agent System status / Repository Z88.6(ICD-10) 04/05/2018 Admitting Generalized Unknown Active [facility] Diagnosis abdominal pain / System R10.84(ICD-10) Repository 04/05/2018 Admitting Retention of urine, Unknown Active [facility] Diagnosis unspecified / System R33.9(ICD-10) Repository 03/05/2018 Admitting Consult / 119() ISABEL SMITH Active [facility] Repository 03/21/2018 Unknown R44.8 - Other Jwayyed, Active [place] symptoms and signs [facility] sensations and Repository perceptions / R44.8(ICD-10) 02/02/2018 Active Other difficulties EUGENIO REYNOSO Active [facility] with micturition / Clinic Main R39.198(ICD-10) [place] Repository 02/02/2018 Active Other chronic pain EUGENIO REYNOSO Active [facility] / G89.29(ICD-10) Clinic Main [place] Repository 04/03/2018 Unknown R07.9 - Chest pain, Lenny Eubanks Active [facility] unspecified / Community R07.9(ICD-10) Hospital Repository 01/16/2018 Admitting Nonspecific LAKEISHA, SERGIOMARTIN Active [facility] diagnosis elevation of levels Repository of transaminase and lactic acid dehydrogenase (ldh) / R74.0(ICD-10) 12/25/2017 Principle Bilateral inguinal GER RAMOS Active [facility] Diagnosis hernia, without [facility] obstruction or Hospital gangrene, recurrent Repository / K4021(ICD-10) 12/06/2017 Active Lower abdominal HANDY RALPH Active [facility] pain, unspecified / S Clinic Other R10.30(ICD-10) [place] Repository 12/03/2017 Admitting Other chronic pain Brigid Active [facility] Diagnosis / G89.29(ICD-10) [facility] Repository 12/03/2017 Admitting Nausea with Brigid, Active [facility] Diagnosis vomiting, [facility] unspecified / Repository R11.2(ICD-10) 12/03/2017 Admitting Diarrhea, Brigid, Active [facility] Diagnosis unspecified / [facility] R19.7(ICD-10) Repository 11/29/2017 Admitting Arthrodesis status Brigid, Active [facility] Diagnosis / Z98.1(ICD-10) [facility] Repository 11/05/2017 Admitting Unknown / KLINE, Active [facility] diagnosis UNK(Unknown) [facility] Repository 10/22/2017 Active Chest pain, HANDY RALPH Active [facility] unspecified / S Clinic Other R07.9(ICD-10) [place] Repository 10/20/2017 Active Generalized SENEGALESE, FARIBA Active [facility] abdominal pain / Clinic Main R10.84(ICD-10) [place] Repository 10/20/2017 Active Cough / R05(ICD-10) SENEGALESE, FARIBA Active [facility] Main [place] Repository 10/17/2017 Active Multiple sclerosis NA Active [facility] / G35(ICD-10) Clinic Main [place] Repository 10/11/2017 Admitting Lower abdominal Mayors, Francois Active [employer] 99Presents Diagnosis pain, unspecified / System R10.30(ICD-10) Repository 10/11/2017 Admitting Benign cyst of Mayors, Francois Active [employer] 99Presents Diagnosis testis / System N44.2(ICD-10) Repository 10/04/2017 Admitting Acute maxillary Jes Mcghee Active [facility] Diagnosis sinusitis, System unspecified / Repository J01.00(ICD-10) 09/27/2017 Active Chronic pain THALLNER, Active [facility] syndrome / MYLES A Clinic Main G89.4(ICD-10) [place] Repository 09/26/2017 Admitting Maldeborah Castellanos, Active [facility] Diagnosis [conscious Kamila System simulation] / Repository Z76.5(ICD-10) 08/30/2017 Admitting Cough / R05(ICD-10) Kait Rasmussen Active [facility] System Repository 08/29/2017 Unknown Z98.890 - Other [facility]ell [facility] Z98.890(ICD-10) 08/22/2017 Admitting Family history of PEREZ, Active [facility] Diagnosis malignant neoplasm, MARCELLE System unspecified / Repository Z80.9(ICD-10) 08/22/2017 Admitting Nausea / PEREZ, Active [employer] 99[facility]resents Diagnosis R11.0(ICD-10) [facility] System Repository 08/11/2017 Admitting Right lower MUKESH, Active [employer] 99Presents Diagnosis quadrant pain / JAVI B System R10.31(ICD-10) Repository 08/11/2017 Admitting Left lower quadrant MUKESH, Active [employer] [facility] Diagnosis pain / JAVI B System R10.32(ICD-10) Repository 08/11/2017 Admitting Unspecified MUKESH, Active [facility] Diagnosis abdominal hernia JAVI B System without obstruction Repository or gangrene / K46.9(ICD-10) 08/05/2017 Admitting Other specified Osapay, Imola Active [employer] Diagnosis postprocedural System states / Repository Z98.890(ICD-10) 08/05/2017 Admitting Hypo-osmolality and [place], Imola Active [employer] Diagnosis hyponatremia / System E87.1(ICD-10) Repository 08/04/2017 Admitting Shortness of breath Kait Rasmussen Active [employer] [facility] Diagnosis / R06.02(ICD-10) System Repository 08/01/2017 Admitting Proc/trtmt not crd Brigid, Active [facility] Diagnosis out d/t pt lv bef Keagan System seen by [facility] care Repository prov / Z53.21(ICD-10) 07/30/2017 Admitting Poor urinary stream Osapay, Imola Active [facility] Diagnosis / R39.12(ICD-10) System Repository 07/05/2017 Admitting Other acute Unknown Active [employer] 99Presents Diagnosis postprocedural pain System / G89.18(ICD-10) Repository 06/24/2017 Admitting Cyst of kidney, Unknown Active [facility] Diagnosis acquired / System N28.1(ICD-10) Repository 06/21/2017 Admitting Encntr for general Osapay, Evomailola Active [facility] Diagnosis adult medical exam System w/o abnormal Repository findings / Z00.00(ICD-10) 06/21/2017 Admitting Nicotine Osapay, [facility] Active [employer] [facility] Diagnosis dependence, System unspecified, Repository uncomplicated / F17.200(ICD-10) 06/18/2017 Admitting Family hx of danielem Rik Avila Active [employer] [facility] Diagnosis heart dis and oth System dis of the circ sys Repository / Z82.49(ICD-10) 06/16/2017 Admitting Dyspnea, Unknown Active [employer] [facility] Diagnosis unspecified / System R06.00(ICD-10) Repository 06/14/2017 Active Other chest pain / NA Active [facility] R07.89(ICD-10) Clinic Other [place] Repository 06/14/2017 Active Shortness of breath NA Active [facility] / R06.02(ICD-10) Clinic Other [place] Repository 06/12/2017 Admitting Other chest pain / Rik Avila Active [employer] [facility] Diagnosis R07.89(ICD-10) System Repository 06/06/2017 Final diagnosis Other chronic pain Dr. Jose Active [facility] (discharge) / G89.29(ICD-10) [facility] Repository 06/06/[address] Jose [facility] (discharge) abdominal pain / [facility] R10.9(ICD-10) Repository 06/06/2017 Final diagnosis Family hx of ischem Dr. Jose Active [facility] (discharge) heart dis and oth [facility] dis of the circ sys Repository / Z82.49(ICD-10) 06/06/[address] Jose Active [facility] (discharge) dependence, [facility] unspecified, Repository uncomplicated / F17.200(ICD-10) 06/06/[address] Jose [facility] abdominal pain / [facility] R10.9(ICD-10) Repository 06/06/[address] [facility] Repository R11.2(ICD-10) 06/04/2017 Principle Localized CHRISTINA MORALES Active [facility] Diagnosis scleroderma [facility] [morphea] / Hospital L940(ICD-10) Repository 05/31/2017 Final diagnosis Constipation, Sandra Young [facility] (discharge) unspecified / Hospitals K59.00(ICD-10) Repository 05/31/2017 Final diagnosis Systemic sclerosis, Sandra Young [facility] (discharge) unspecified / Hospitals M34.9(ICD-10) Repository 05/28/2017 Active Unknown / NA Active [facility] UNK(Unknown) Clinic Main [place] Repository 05/25/2017 Unknown R10.31 - Right Benavidez, Kate Active [facility] lower quadrant pain Community / R10.31(ICD-10) Hospital Repository 05/23/2017 Admitting Peripheral vascular James Joseph Active [facility] Diagnosis disease, System unspecified / Repository I73.9(ICD-10) 05/05/2017 Active Pain in right hip / NA Active [facility] M25.551(ICD-10) Clinic Other [place] Repository PROCEDURES PROCEDURES DATE CODE DESCRIPTION STATUS SOURCE 04/15/2018 15764([facility]PCS 30887 Completed [facility] CPT-4) Hospitals Repository 08/16/2017 04888(C4) ED RN ADULT CHEST PAIN Completed [facility] Repository 08/16/2017 12138(C4) EKG 12 LEAD - PERFORM Completed [facility] Repository 08/16/2017 SVW7152(C4) APPLY CONTINUOUS Completed [facility] CARDIORESPIRATORY MONITOR System Repository 08/16/2017 TYT2706(C4) DELIVER OXYGEN VIA NASAL Completed [facility] CANNULA System Repository 08/16/2017 ESS1749(C4) INSERT PERIPHERAL IV Completed [facility] ACCESS System Repository 08/16/2017 RLN189(C4) NPO Completed [facility] Repository 08/16/2017 80041(C4) COMPLETE BLOOD COUNT Completed [facility] W/DIFF System Repository 08/16/2017 98684(C4) BASIC METABOLIC PANEL Completed [facility] Repository 08/16/2017 06539(C4) I-STAT TROPONIN, ED Completed [facility] Repository 08/16/2017 22449(C4) XR CHEST PA+LAT Completed [facility] Repository 08/16/2017 76345(C4) TROPONIN I Completed [facility] Repository 08/16/2017 ED103(C4) DISCHARGE PATIENT Completed [facility] Repository 08/16/2017 CXU751(C4) PULSE OXIMETRY Completed [facility] Repository 08/16/2017 71543(C4) EKG 12 LEAD - PERFORM Completed [facility] Repository 08/15/2017 39795(C4) COMPLETE BLOOD COUNT Completed [facility] W/DIFF System Repository 08/15/2017 64095(C4) BASIC METABOLIC PANEL Completed [facility] Repository 08/15/2017 67210(C4) HEPATIC FUNCTION PANEL Completed [facility] Repository 08/15/2017 67295(C4) LIPASE Completed [facility] Repository 08/15/2017 48700(C4) CT ABD/PELVIS ED I/V Completed [facility] W/ CONTRAST System Repository 08/13/2017 ED103(C4) DISCHARGE PATIENT Completed [facility] Repository 08/11/2017 02807(C4) URINALYSIS Completed [facility] Repository 08/11/2017 05471(C4) URINALYSIS,AUTO-IN OFFICE Completed [facility] Repository 08/11/2017 C URINE(C4) URINE CULTURE Completed [facility] Repository 06/06/2017 [address]1015([facility] [place] [address] Completed [facility]PT[facility] Repository 05/31/2017 40405([facility] [place] [address] Completed [facility] Repository RESULTS RESULTS 12 LEAD ELECTROCARDIOGRAM Observed: 04/28/2018 Status: F Source: [place] 9:23 AM [facility] Cardiovascular Services [address] [place] [address] 12 Lead EKG 04/24/1818 MR#: [id number] Acct: [id number] Name: OLIVER CUNNINGHAM Rep #: [id number] : 1960 57 From: Dominic Karimi MD Attending Dr: Status: DEP ER Ordering Dr: Nicki Carl DO Date: 04/24/18 Location: ED Sex: M C Admitted: Test Reason : Blood Pressure : / mmHG Vent. Rate : 093 BPM Atrial Rate : 093 BPM P-R Int : 122 ms QRS Dur : 092 ms QT Int : 366 ms P-R-T Axes : 079 085 069 degrees QTc Int : 455 ms Normal sinus rhythm Normal ECG Confirmed by DOMINIC KARIMI MD ([id number]), medical editor RUSSELL LOCKHART ([id number]) on 04/28/2018 9:23:03 AM Referred By: ANDREW Confirmed By:DOMINIC KARIMI MD 04/28/18922 Date Dominic Karimi MD CC: No Primary Care Physician; Nicki Carl DO Signed DISCHARGE INSTRUCTION Observed: 04/24/2018 Status: F Source: [place] 9:46 AM [facility] Medical Records Department [address] [place] [address] Discharge Instruction 04/24/1845 MR#: [id number] Acct: [id number] Name: OLIVER CUNNINGHAM Rep #: [id number] : 1960 57 From: Nicki Carl DO PCP: Care Physician, No Primary Status: REG ER ED Disposition - Plan for ED Patient: Chief Complaint: Abd Pain Instructions: ED Abdominal Pain Unkn Cause Male, ED Chest Pain Atypical Unkn Cause Referrals: Care Physician,No Primary [Primary Care Provider] - Arielle Mesa MD [STAFF PHYSICIAN] - 3-5 Days What to do if you have Problems For any increased pain, shortness of breath, bleeding, nausea or vomiting, chest pain, or any unexpected problems, contact your Primary Care Provider. Call [facility] ([phone]) or report to the closest Emergency Room. Call 911 if necessary. 04/24/18 0946 <Electronically signed by Nicki Carl DO> Date Nicki Carl DO Cosigner Signature (If Indicated): Date CC: No Primary Care Physician EMERGENCY DEPARTMENT Observed: 04/24/2018 Status: F Source: [place] SUMMARY 9:45 AM [facility] REPOSITORY [facility] Medical Records Department [address] [place] [address] Emergency Department Summary 04/24/18 0939 MR#: [id number] Acct: [id number] Name: OLIVER CUNNINGHAM Rep #: [id number] : 1960 57 From: Nicki Carl DO PCP: Care Physician, No Primary Status: REG ER - ER Visit Summary Date of Service: 04/24/18 Chief Complaint: [Abdomen and chest pain] History of Present Illness: The patient is a 57 M [presents the emergency department complaint of pain in the lower abdomen that then radiates up into his chest. Patient describes it as sharp and at times heaviness. Patient feels short of breath with it at times and nauseated. Patient has had this ongoing pain for over 2 years. Patient has seen multiple specialists including pain management and general surgeons. Patient believes his troubles started several years ago when he had mesh repair of a hernia. Patient has since seen multiple surgeons and actually had surgery a month ago to evaluate the hernia and mesh at [facility]. Patient was told that the initial mesh was placed over an artery and now was embedded into the artery and there was nothing that they could do to retry to remove the mesh. Patient was told to find a more specialized surgeon therefore he made a appointment with vascular surgeon whom he is not seen yet. Patient tells me that he has no cardiac history and did have a stress test 3-4 months ago that was normal. Patient denies recent travel or surgery. Patient has a history of COPD, hypertension, high cholesterol, chronic abdominal pain, GERD.] Patient states that he was on a medication a year and a half ago called Christydavid that caused little slivers to form in his bloodstream and he could feel that was going through his arteries and veins and feels that that may be contributed to the adhesions in his abdomen and is concerned about a blockage in blood flow. Physical Examination: [HEENT-PERRLA, EOMI. Cranial nerves II through XII grossly intact. TMs clear. Mucous membranes moist. No adenopathy. Cardiovascular-regular rate and rhythm without murmur or ectopy Lungs-clear to auscultation, chest wall stable without crepitus or subcu emphysema Abdomen-normoactive bowel sounds, soft. Patient has diffuse tenderness palpation to the lower abdomen. There is no rebound, rigidity, or perineal signs. No incarcerated hernias or masses palpated. Extremities-intact 4, normal range of motion, normal pulses, atraumatic. Patient has normal pulses in his lower extremities bilaterally.] Test Results: [CBC with differential obtained was normal. Chemistries were normal. Troponin was less than 0.015. D-dimer was normal at 0.4. Chest x- ray was normal. And EKG showed sinus rhythm with a ventricular rate of 93 bpm with no acute I segment changes.] Emergency Department Course and Treatment: [Received aspirin in the emergency department and sublingual nitroglycerin which did not give him any pain relief.] Treatment Plan: [At this point I am not convinced that his pain is cardiac in origin and he is adamant that all this is emanating from his abdomen and his chronic issues. Patient had recent stress test and his current workup in the ER is unremarkable. I do not feel patient needs any further imaging. Patient will be referred to his physicians for follow-up as well as cardiology if chest pain should continue.] Disposition: [Discharged home in stable condition] Impression: [Abdominal pain Chest pain-atypical] This note was generated with WiFastation software. It may contain incorrect words, spelling, and punctuation that were not noted in review of the chart prior to signing ED Disposition - Plan for ED Patient: Chief Complaint: Abd Pain Referrals: Care Physician,No Primary [Primary Care Provider] - What to do if you have Problems For any increased pain, shortness of breath, bleeding, nausea or vomiting, chest pain, or any unexpected problems, contact your Primary Care Provider. Call [facility] ([phone]) or report to the closest Emergency Room. Call 911 if necessary. 04/24/18 0945 <Electronically signed by Nicki Carl DO> Date Nicki Carl DO Cosigner Signature (If Indicated): Date CC: No Primary Care Physician CBC W/DIFF, AUTOMATED Collected: 04/24/2018 Status: F Source: [place] 8:20 AM [facility] REPOSITORY TYPE CODE TESTS RESULT OUT OF RANGE REFERENCE UNITS LAB L100.1000 4.4-11.0 K/mm3 Normal WBC 6.1 LAB L100.1200 4.6-6.2 M/mm3 Normal RBC 4.92 LAB L100.1300 13.0-16.5 g/dl Normal HGB 16.4 LAB L100.1400 40-54 % Normal HCT 48.0 LAB L100.1500 80-94 fL High MCV 97.6 LAB L100.1600 27.0-32.0 pg High MCH 33.3 LAB L100.1700 32-36 g/gl Normal MCHC 34.2 LAB L100.1810 11.6-14.6 % Normal RDW CV 12.7 LAB L100.1820 35.1-43.9 fl High RDW SD 45.0 LAB L100.1900 150-450 K/mm3 Normal PLT 229 LAB L100.2000 6.2-12.0 fl Normal MPV 8.7 LAB L100.2100 47-70 % Normal NEUT% 57.3 LAB L100.2200 19-41 % Normal LY% 29.0 LAB L100.2300 0-10 % High MONO% 11.6 LAB L100.2400 0-5 % Normal EO% 1.6 LAB L100.2500 0-1 % Normal BASO% 0.3 LAB L100.2550 0.0-0.9 % Normal IM GRAN % 0.200 Result Comment: IG% - Immature Granulocytes (promyelocytes, myelocytes and metamyelocytes) > 1% indicates that a LEFT SHIFT is Present. LAB L100.2620 2.0-7.7 X10 3/uL Normal Absolute Neut 3.5 LAB L100.2720 0.83-4.51 X10 3/ul Normal Absolute Lymph 1.78 Performed By: #### L100.0100 #### [facility] [address] [place], [address] BASIC METABOLIC Collected: 04/24/2018 Status: F Source: [place] PROFILE ([facility]) 8:20 AM [facility] REPOSITORY TYPE CODE TESTS RESULT OUT OF RANGE REFERENCE UNITS LAB L501.0100 74-106 mg/dL High GLU 120 Result Comment: Fasting Glucose result from 100 to 125 mg/dL suggests IMPAIRED HOMEOSTASIS per A.D.A. criteria. Please note revised GLUCOSE reference range effective 2017. LAB L501.1000 7-18 mg/dL Normal BUN 7 LAB L501.1100 0.70-1.30 mg/dL Normal CREAT,SERUM 0.76 Result Comment: The validity of the calculated GFR AND GFRAA in patients over 70 years has not been determined. Clinical correlation is essential. LAB L501.1110 >60 mL/min Normal EST GFR 112 Result Comment: Non- GFR Calc LAB L501.1115 >60 mL/min Normal EST GFR - AA 136 Result Comment: GFR Calc LAB L501.1255 ml/min Normal Estimated CRCL 115.59 LAB L501.1300 10-20 RATIO Low BUN/CRE 9.2 LAB L501.2200 8.5-10 mg/dL .1 CA Normal 8.9 LAB L501.5300 136-14 mmol/L 5 NA Normal 137 LAB L501.5600 3.5-5. mmol/L 1 K Normal 3.8 LAB L501.5900 98-107 mmol/L CL Normal 99 LAB L501.6100 21.0-3 mmol/L 2.0 CO2 Normal 28.0 LAB L501.6200 5-15 GAP Normal 10 Performed By: #### L500.2500, L501.4010 #### [facility] [address] [place], [address] TROPONIN-I Collected: 04/24/2018 Status: F Source: [place] 8:20 AM [facility] REPOSITORY TYPE CODE TESTS RESULT OUT OF RANGE REFERENCE UNITS LAB L501.4010 <0.045 ng/mL Normal < 0.015 TROPONIN-I Result Comment: TROPONIN-I EXPECTED VALUES <0.045 Negative 0.045 - 0.590 Consistent with Cardiac Damage > OR = 0.600 Critical Value Not every elevated troponin is indicative of MA. These values should be used with clinical judgement in examining the patient's clinical picture for diagnosis. To establish a diagnosis of MA versus myocardial injury, there must be a demonstrated rise and/or fall in the troponin values, in addition to ischemic symptoms, EKG changes, new regional wall motion abnormality, and/or angiographical evidence. PLEASE NOTE: REFERENCE RANGES EDITED 17 Performed By: #### L500.2500, L501.4010 #### [facility] [address] [place], [address] D-DIMER QUANTITATIVE Collected: 04/24/2018 Status: F Source: [place] (DVT/PE) 8:20 AM [facility] REPOSITORY TYPE CODE TESTS RESULT OUT OF RANGE REFERENCE UNITS LAB L300.8000 0.27-0.49 FEU/ug/m Normal D-DIMER 0.40 QUANT Result Comment: NORMAL D-Dimer level (<0.50) indicates no DVT or PE. Performed By: #### L300.8000 #### [facility] [address] [place], [address] CHEST 1 VIEW Observed: 04/24/2018 Status: F Source: [place] (PORTABLE) 8:14 AM [facility] REPOSITORY [facility] Imaging Services [address] [place] [address] Chest 1 View (Portable) MR#: [id number] Acct: [id number] Name: OLIVER CUNNINGHAM Rep #: [id number] : 1960 M 57 From: Cheyenne Rodriguez MD PCP: Care Physician, No Primary Status: REG ER Study: Chest 1 View (Portable) Date of Exam: 04/24/18 Exam# [id number] Ordering Dr: Nicki Carl DO STUDY: X-RAY CHEST REASON FOR EXAM: Male, 57 years old. CHEST PAIN FROM ABD HERNIA MESH MISPLACEMENT TECHNIQUE: Single AP portable view of the chest. COMPARISON: February 20, 2018 FINDINGS: The lungs are clear and expanded. There is no demonstrated pleural abnormality. Normal size heart. Normal mediastinum and zachary. Normal visualized pulmonary arteries. Normal visualized aortic arch and descending thoracic aorta. Normal visualized thoracic spine. Normal visualized ribs, clavicles, and shoulders. There is no demonstrated abnormality of the visualized soft tissue structures of the upper abdomen. RAD/Chest 1 View (Portable) IMPRESSION: Normal x-ray examination of the chest. Electronically Signed: Cheyenne Rodriguez MD at 9:05 EST , Service support , CC: No Primary Care Physician; Nicki Carl DO Nutrition Services Worker: Signed ED NOTE Observed: 04/23/2018 Status: COMPLETED Source: [place] 6:35 PM CLINIC OTHER CAMPUS REPOSITORY HNO ID: [id number] Author: Terri Nuñez) KIMBERLEE Nassar Service: (none) Author Type: Registered Nurse Type: ED Notes Filed: 04/23/2018 6:36 PM Note Text: Patient in stable condition upon discharge resp even and unlabored. No distress noted. Discharge and follow up reviewed, plan of care is agreed upon. CBC AND DIFFERENTIAL Collected: 04/23/2018 Status: F Source: [place] 5:32 PM CLINIC OTHER CAMPUS REPOSITORY TYPE CODE TESTS RESULT OUT OF REFERENCE UNITS RANGE LAB WBC 3.70-11.00 k/uL WBC 7.74 LAB RBC 4.20-6.00 m/uL RBC 4.79 LAB HGB 13.0-17.0 g/dL Hemoglobin 15.5 LAB HCT 39.0-51.0 % Hematocrit 46.1 LAB MCV 80.0-100.0 fL MCV 96.2 LAB MCH 26.0-34.0 pG MCH 32.4 LAB MCHC 30.5-36.0 g/dL MCHC 33.6 LAB RDWCV 11.5-15.0 % RDW-CV 12.2 LAB PLTCT 150-400 k/uL Platelet Count 243 LAB MPV 9.0-12.7 fL Low MPV 8.7 LAB ANEUT % Neut% 66.6 LAB AANEUT 1.45-7.50 k/uL Abs Neut 5.16 LAB ALYMP % Lymph% 22.1 LAB AALYMP 1.00-4.00 k/uL Abs Lymph 1.71 LAB AMONO % Mellette% 10.1 LAB AAMONO <0.87 k/uL Abs Mellette 0.78 LAB AEOS % Eosin% 0.8 LAB AAEOS <0.46 k/uL Abs Eosin 0.06 LAB ABASO % Baso% 0.4 LAB AABASO <0.11 k/uL Abs Baso 0.03 Performed By: #### CBCDIF, PT, PTT, CMP #### [facility] [address] [facility] [phone] PROTIME Collected: 04/23/2018 Status: F Source: [place] 5:32 PM CLINIC OTHER CAMPUS REPOSITORY TYPE CODE TESTS RESULT OUT OF RANGE REFERENCE UNITS LAB PSEC 9.7-13.0 sec Low PT Sec 9.5 LAB INR 0.9-1.3 PT INR 0.9 Result Comment: Vitamin K Antagonist (VKA) Therapeutic Range: INR 2 to 3 (Target INR of 2.5) Note: For patients treated with VKA drugs, such as warfarin, the [place] [employer] 2012 Guideline recommends a therapeutic INR range of 2 to 3 (target INR of 2.5). This recommendation includes high-risk patients with antiphospholipid syndrome with previous arterial or venous thromboembolism, current-generation mechanical or bioprosthetic aortic heart valve replacement. Note: Patients with mechanical aortic valve replacement and additional risk factors for thromboembolic events (atrial fibrillation, previous thromboembolism, LV dysfunction, hypercoagulable conditions) or an older generation mechanical AVR (i.e., ball in-Cage) or any mechanical MVR should have a INR therapeutic range of 2.5 to 3.5 (target INR of 3). Roberto DONALDSON, et al. Chest 2012, 141:7S-47S Dee HEWITT, et al. [facility] 2017, 70: 252-289 Performed By: #### CBCDIF, PT, PTT, CMP #### [facility] [address] [place] [address] APTT Collected: 04/23/2018 Status: F Source: [place] 5:32 [facility] REPOSITORY TYPE CODE TESTS RESULT OUT OF RANGE REFERENCE UNITS LAB APTT 23.0-32.4 sec APTT 28.0 Result Comment: Unfractionated Heparin Therapeutic Ranges: Standard Heparin Nomogram: 53 to 78 seconds (anti-Xa level of 0.3 to 0.7 U/ml) Low Dose/ACS Nomogram: 49 to 67 seconds (anti-Xa level of 0.2 to 0.5 U/ml) Stroke Treatment Nomogram: 49 to 67 seconds (anti-Xa level of 0.2 to 0.5 U/ml) Note: The APTT therapeutic range has been determined for the current lot of laboratory APTT reagent in use throughout the [facility]. Performed By: #### CBCDIF, PT, PTT, CMP #### [facility] [address] [place] [address] COMP METABOLIC PANEL Collected: 04/23/2018 Status: F Source: [place] 5:32 [facility] REPOSITORY TYPE CODE TESTS RESULT OUT OF REFERENCE UNITS RANGE LAB TP 6.3-8.0 g/dL Protein, Total 7.2 LAB ALB 3.9-4.9 g/dL Albumin 4.3 LAB CA 8.5-10.2 mg/dL Calcium, Total 8.9 LAB TBIL 0.2-1.3 mg/dL Bilirubin, Total 0.4 LAB ALKP 38-113 U/L Alkaline Phosphatase 60 LAB AST 14-40 U/L AST 17 LAB GLU 74-99 mg/dL Glucose High 107 Result Comment: The [place] [employer] (ADA) provides guidance for cutoff values for fasting glucose and random glucose. The ADA defines fasting as no caloric intake for at least 8 hours. Fas ting plasma glucose results between 100 to 125 mg/dL indicate increased risk for diabetes (prediabetes). Fasting plasma glucose results greater than or equal to 126 mg/dL meet the criteria for diagnosis of diabetes. In the absence of unequivocal hyperglycemia, results should be confirmed by repeat testing. In a patient with classic symptoms of hyperglycemia or hyperglycemic crisis, random plasma glucose results greater than or equal to 200 mg/dL meet the criteria for diagnosis of diabetes. Reference: Standards of Medical Care in Diabetes 2016, [place] [employer]. Diabetes Care. 2016.39(Suppl 1). LAB BUN 9-24 mg/dL BUN Low 7 LAB CRET 0.73-1.22 mg/dL Creatinine Low 0.67 LAB NA 136-144 mmol/L Sodium 136 LAB K 3.7-5.1 mmol/L Potassium Low 3.5 LAB CL 97-105 mmol/L Chloride 98 LAB CO2 22-30 mmol/L CO2 27 LAB AGAP 9-18 mmol/L Anion Gap 11 LAB ALT 10-54 U/L ALT 18 LAB GFRAA eGFR- Amer. >60 LAB GFRNAA . eGFR-All Other Races >60 Result Comment: eGFR (Estimated GFR) Units of measure: mL/min/1.73 meters squared eGFR is derived from the reexpressed MDRD Study equation using the following parameters: serum creatinine, age, gender and race. The creatinine assay has been calibrated to be traceable to IDMS. An eGFR <60 mL/min/1.73m2 for >3 months is consistent with chronic kidney disease. Refer to KDOQI guidelines for clinical interpretation. In patients with unstable renal function, e.g. those with acute kidney injury, the eGFR may not accurately reflect actual GFR. Performed By: #### CBCDIF, PT, PTT, CMP #### [facility] [address] [facility] [phone] ED PROV NOTE Observed: 04/23/2018 Status: COMPLETED Source: [place] 5:24 PM CLINIC OTHER CAMPUS REPOSITORY [facility] ID: [id number] Author: Angel Fontana (Pa) Service: Emergency Medicine Author Type: Physician Circuit Tester Type: ED Provider Notes Filed: 04/23/2018 6:14 PM Note Text: ED Provider Note Patient Name: Oliver Cunningham SERVICE DATE: 04/23/18 History Patient presents with: Pain 57 year old male with a past medical history of chronic abdominal pain, hypertension, hyperlipidemia, MS, tobacco use, presents back to the emergency department today for exacerbation of his abdominal pain. Patient stated that he's been having abdominal pain for years now. He believes his blood is too hard because one medication he was put on about a year . He did stop taking his medication about a year and a half ago because he was convinced that is maintaining his blood too hard . 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 He has seen multiple surgeons and specialties for his MASH and he has been fired by all these docs. patient tells me that about a month ago he had surgery and the surgeon told him that the mash was done incorrectly and that he needs to Marilu his previous surgeon. PAST MEDICAL HISTORY Diagnosis Date - Black spider bite 10/2007 - Cervical radiculopathy - CHI (closed head injury) 20 years ago. 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 PAST SURGICAL HISTORY Procedure Laterality Date - AMPUTATION FINGER/THUMB 05/29/10 Traumatic, Right middle, ring and distal - BACK SURGERY HX - CHOLECYSTECTOMY HX - COLONOSCOPY 11/20 - COLONOSCOPY 03/2016 - EGD W/O OR W/BRUSH/WASH 06/24/13 EGD - HERNIA REPAIR HX 2013 umbilical - HERNIA REPAIR HX Bilateral 05/2016 Bilateral Inguinal Hernia repair - ORTHOPEDICS SURGERY HX - PAST SURGICAL HISTORY OF 1993 lumbar diskectomy - REMOVAL GALLBLADDER 1998 laparoscopic - REMOVE TONSIL AND ADENOI UNDER AGE 13 remote - ROTATOR CUFF REPAIR 05/24/11 Right Shoulder - ROTATOR CUFF REPAIR 07/10/11 Left shoulder - TONSILLECTOMY HX FAMILY HISTORY Problem Relation Age of Onset - Emphysema Mother - Cancer Mother lung/glioblastoma(Brain) - Thyroid Mother - Heart Mother - other (charcot samir tooth) Mother - other (GBM) Mother - Coronary Artery Disease Father MA and CABG - other (MS) Daughter - Lipids Paternal Grandfather - Lipids Brother - Psychiatry Sister - Kidney Disease Daughter - Psychiatry Daughter bipolar disorder Social History Social History Main Topics - Smoking status: Current Every Day Smoker Packs/day: 0.25 Years: 45.00 Types: Cigarettes Start date: 04/08/1977 - Smokeless tobacco: Never Used - Alcohol use No Comment: none - Drug use: No - Sexual activity: Not Currently Partners: Female ALLERGIES Allergen Reactions - Hydrocodone GI Upset Feels like bleeding Inside stomach - Lyrica [Pregabalin] Intolerance - Aubagio [Teriflunom* Other: See Comments Passed out - Bentyl [Dicyclomine* Other: See Comments - Celexa [Citalopram * Other: See Comments Terrible headaches. - Copaxone [Glatirame* Rash, Itching - Cymbalta [Duloxetin* Other: See Comments chest pain, abnormal sensation/feeling in chest - Erythromycin Other: See Comments turns everything to stone inside my bowels - Fenofibrate Intolerance chest pain and numbness - Hctz [Amiloride-Hyd* Other: See Comments Tripping, falling, no sense of balance - Lipitor [Atorvastat* Other: See Comments ruq PAIN - Miralax [Polyethyle* Swelling, GI Upset Swollen abdomen - go lightly - Mobic [Meloxicam] Itching - Morphine Other: See Comments Side pain - Penicillins Rash high fevers - Pravastatin Other: See Comments Muscle soreness - Prilosec [Omeprazol* Other: See Comments increased abdominal pressure, travels up to the chest area - Reglan [Metoclopram* GI Upset Also gives chest pain - Welchol [Colesevela* Other: See Comments Abdomen and chest pain - Xifaxan [Rifaximin] Other: See Comments Insomnia Review of Systems Constitutional: Negative for chills and fever. HENT: Negative for congestion, drooling, ear pain, mouth sores, sinus pressure, sore throat, tinnitus and trouble swallowing. Eyes: Negative for photophobia and visual disturbance. Respiratory: Negative for cough, chest tightness, shortness of breath and wheezing. Cardiovascular: Negative for chest pain and palpitations. Gastrointestinal: Positive for abdominal distention and abdominal pain. Negative for anal bleeding, constipation, nausea and vomiting. Genitourinary: Negative for dysuria, flank pain and hematuria. Musculoskeletal: Negative for arthralgias, gait problem, neck pain and neck stiffness. Skin: Negative for color change. Neurological: Negative for dizziness, seizures and numbness. Psychiatric/Behavioral: Negative for agitation and confusion. The patient is not nervous/anxious. Physical Exam BP 172/103 Pulse 107 Temp (Src) 97.3 (Oral) Resp 20 Wt 187 lb (84.8kg) SpO2 98% Physical Exam Constitutional: He is oriented to person, place, and time. He appears well-developed and well-nourished. HENT: Head: Normocephalic and atraumatic. Head is without raccoon's eyes and without Alfred's sign. Right Ear: Hearing normal. Left Ear: Hearing normal. Nose: Right sinus exhibits no maxillary sinus tenderness and no frontal sinus tenderness. Left sinus exhibits no maxillary sinus tenderness and no frontal sinus tenderness. Eyes: Conjunctivae and EOM are normal. Neck: Normal range of motion. Neck supple. Cardiovascular: Normal rate. Pulmonary/Chest: Effort normal. Abdominal: Soft. He exhibits no distension and no mass. There is no tenderness. There is no rebound and no guarding. No hernia. Musculoskeletal: Normal range of motion. Neurological: He is alert and oriented to person, place, and time. He displays no atrophy and no tremor. He displays a negative Romberg sign. He displays no seizure activity. Gait normal. Skin: Skin is warm and dry. Psychiatric: He has a normal mood and affect. His behavior is normal. Diagnostic Testing ED Labs Ordered and Reviewed - No data to display Procedures ED Course / Clinical Impression Clinical Impressions as of Apr 23 1811 Chronic abdominal pain (R10.9, G89.29) Chronic abdominal pain (primary encounter diagnosis) Comment: acute Plan: See pcp See abdominal pain clinic Home pain meds See pcp Return to ed if sx worsen MDM / Disposition / Plan The medical record is reviewed.Triage note is reviewed and incorporated. The nursing note is reviewed and consistent with patient's history and physical exam findings. The vital signs were reviewed the the vital signs are : BP 172/103 Pulse (!) 107 Temp 36.3 ?C (97.3 ?F) (Oral) Resp 20 Wt 84.8 kg (187 lb) SpO2 98% BMI 26.08 kg/m? MDM: This is a well-appearing male with a pmh of chronic abdominal pain who presents to the ED with a chief complaint of exacerbation of his chronic abdominal pain who is, afebrile , hemodynamically stable, in no acute distress patient whose symptoms are controlled in the ED with ivf . Based on patient's pmh, chief complaint and physical exam findings, differential diagnoses include acute abdomen vs hernia, vs exacerbation of his chronic abdominal pain. Labs and imaging studies reveal cbc and cmp within normal limits inr within normal limits Based on patient's physical exam findings, clinical picture, lab results and imaging studies that were performed here today in the ED, at this time, the following differential diagnoses such as acute abdomen is less likely due to unremarkable exam. The following differential diagnosis such as infection is less likely due to unremarkable cbc and vitals. The patient has remained hemodynamically stable throughout the entire ED visit and is without objective evidence for acute process requiring urgent intervention or hospitalization. The patient and/or family had all the tests and diagnosis explained to them and were given both verbal and written discharge instructions. I answered the patient's question as well as family to the best of my ability. The patient is stable for discharge, and pt is instructed to follow up with pcp and educated to return to ed if sx worsen or any new symptoms. Pt agreeable with plan. At this time, based on the patient's history, physical exam findings, lab results and clinical picture , the most likely diagnosis is abdominal pain Pt educated on the most common causes of Abdominal pain Pt instructed to follow up with PCP in 1-2 days Discharge care instructions, medications, follow up instructions, and reasons to return to the ED immediately, such as worsening of symptoms or any new symptoms, were provided verbally and in writing to patient (patient guardian / medical detail representative), who verbalized understanding. This note was partially generated using [employer] voice recognition system, and there may be some incorrect words, spellings, and punctuation that were not noted in checking the note before saving The patient was DISCHARGED: Counseled patient and family regarding lab results AND suspected diagnosis AND need for follow-up. Discharged home with verbal and written instructions. They were instructed to return as needed for persistent or worsening symptoms or any new concerns. Condition at time of disposition: stable SIGNATURE: VINNY Fair (Pa) 04/23/18 1814 ED NOTE Observed: 04/23/2018 Status: COMPLETED Source: [place] 4:53 PM CLINIC OTHER CAMPUS REPOSITORY [facility] ID: [id number] Author: Alley (Rn) KIMBERLEE Ralph Service: Emergency Medicine Author Type: Registered Nurse Type: ED Notes Filed: 04/23/2018 4:54 PM Note Text: Pt presents with c/o worsening whole body pain x years. Pt states he was taking a medication that caused his blood to go hard and symptoms are worsening. Pt stopped taking that particular medication 1.5 years ago. URINALYSIS,MACRO Collected: 04/21/2018 Status: F Source: [facility] 1:35 PM SYSTEM REPOSITORY TYPE CODE TESTS RESULT OUT OF REFERENCE UNITS RANGE LAB APPUR Clear NA Appearance CLEAR LAB COLUR Lt. Yellow NA Color YELLOW LAB USG 1.005-1.030 NA Specific Normal [place],Urine 1.006 LAB UPH 5.0-8.0 NA pH,Urine Normal 6.5 LAB ULUK Negative NA Leukocytes NEG LAB UNIT Negative NA Nitrites NEG LAB UPRO Negative mg/dL Total Protein,Urine NEG LAB UGLU Negative mg/dL Glucose,Urine NEG LAB UKET Negative mg/dL Ketone,Urine NEG LAB UURO 0-1 mg/dL Urobilinogen 0.2 LAB UBIL Negative NA Bilirubin,Ur NEG LAB UBLD Negative {RBC}/uL Occult Blood,Ur NEG Performed By: #### UAMAC #### Lost My Name [facility] [address] [place] [address] CR CHEST PORTABLE Observed: 04/21/2018 Status: F Source: [facility] 12:58 PM SYSTEM REPOSITORY Patient Name: OLIVER CUNNINGHAM Diagnostic Radiology Exam Date/Time 04/21/2018 12:57:03 EST Exam CR Chest Portable Ordering Physician MD CELESTINA, HARSHA Geronimo Accession Number [id number] CPT4 Codes 54372 () Reason For Exam Chest pain Report Portable chest 04/21/2018: Clinical Information: Chest pain. Findings: A single AP portable view of the chest was obtained at 1242 hours. Comparison was made to the prior study 04/05/2018. The trachea is midline. The heart is not enlarged. No focal areas of consolidation or volume loss are seen. There are no pleural effusions. The pulmonary vasculature does not appear congested. The visualized bony structures are intact. Impression: No acute process. Report Dictated on Final Dictating Physician: MD CUNHA RISA Signed Date and Time: 04/21/2018 12:59 pm Signed by: MD CUNHA RISA Transcribed Date and Time: 04/21/2018 1:00 HEMOGRAM W/ AUTODIFF Collected: 04/21/2018 Status: F Source: [facility] 12:24 PM SYSTEM REPOSITORY TYPE CODE TESTS RESULT OUT OF REFERENCE UNITS RANGE LAB IWBC 3.6-10.7 10*3/uL WBC Normal 6.9 LAB RBC 4.40-5.90 10*6/uL RBC Normal 4.51 LAB HGB 13.0-18.0 g/dL Hemoglobin Normal 15.0 LAB HCT 40.0-52.0 % Hematocrit Normal 44.2 LAB MCV 80.0-98.0 fL MCV Normal 97.9 LAB MCH 26.0-34.0 pg MCH Normal 33.2 LAB MCHC 32.0-36.0 % MCHC Normal 33.9 LAB RDW 11.5-14.5 % RDW Normal 13.4 LAB PLT 140-440 10*3/uL Platelet Normal 245 LAB MPV 7.4-10.4 fL Low MPV 6.4 LAB GRAN% 40.0-80.0 % Granulocytes Normal 64.5 LAB LYMP% 20.0-40.0 % Lymphocytes Normal 26.0 LAB MONO% 2.0-10.0 % Monocytes Normal 8.0 LAB EOS% 1.0-6.0 % Low Eosinophils 0.8 LAB BAS% 0.0-2.0 % Basophils Normal 0.7 LAB ANC 1.8-7.0 10*3/uL Abs Normal Neutrophile Cnt 4.4 LAB ALC 1.0-4.3 10*3/uL Abs Lymph Cnt Normal 1.8 LAB AMC 0.0-0.8 10*3/uL Abs Monocyte Normal Cnt 0.5 LAB AEC 0.0-0.5 10*3/uL Abs Eosin Cnt Normal 0.1 LAB ABC 0.0-0.2 10*3/uL Abs Baso Cnt Normal 0.0 Performed By: #### HEMDF, BMP3, TROPN #### Lost My Name [facility] [address] [place] [address] BASIC METABOLIC PANEL Collected: 04/21/2018 Status: F Source: [facility] 12:24 PM SYSTEM REPOSITORY TYPE CODE TESTS RESULT OUT OF RANGE REFERENCE UNITS LAB NA3 135-145 mmol/L Sodium Normal 142 LAB K3 3.5-5.1 mmol/L Normal Potassium 3.8 LAB CL3 98-107 mmol/L Chloride Normal 103 LAB CO23 22-30 mmol/L High Carbon Dioxide 31 LAB ANIN3 NA Anion Gap 8 LAB GLUC3 70-100 mg/dL High Glucose 118 LAB BUN3 7-20 mg/dL Urea Normal Nitrogen 11 LAB CRET3 0.52-1.25 mg/dL Normal Creatinine 0.64 LAB GF3BR >60 mL/min eGFR > 60.0 LAB GF3WR >60 mL/min eGFR OTHER > 60.0 Result Comment: Source- MDRD equation with creatinine calibration to IDMS(NKDEP) eGFR not recommended for drug dose adjustment LAB CA3 8.4-10.4 mg/dL Normal Calcium 8.8 Performed By: #### HEMDF, BMP3, TROPN #### [facility] [address] [place] [address] TROPONIN I Collected: 04/21/2018 Status: F Source: [facility] 12:24 PM SYSTEM REPOSITORY TYPE CODE TESTS RESULT OUT OF RANGE REFERENCE UNITS LAB TROP4 0.000-0.034 ng/mL Normal Troponin I < 0.012 Result Comment: 0.046 - 0.400 = Indeterminate > 0.400 = Consider Myocardial Injury Performed By: #### HEMDF, BMP3, TROPN #### [facility] [address] [place] [address] ED PROVIDER NOTE Observed: 04/21/2018 Status: F Source: [facility] 11:56 AM SYSTEM REPOSITORY [facility] ED eMERGENCY dEPARTMENT eNCOUnter Pt Name: Oliver Cunningham Birthdate 1960 Date of evaluation: 04/21/2018 Provider: Harsha Benavidez MD CHIEF COMPLAINT Chief Complaint Patient presents with ? Chest Pain HISTORY OF PRESENT ILLNESS (Location/Symptom, Timing/Onset,Context/Setting, Quality, Duration, Modifying Factors, Severity) Note limiting factors. Oliver Cunningham is a 57 y.o. male who presents to the emergency department With chest pain. Patient has history of chronic chest pain. Patient also is having chronic bowel pain ever since he had mesh. None of this is new is been persistent. Comes in to be seen. He is not visits with multiple surgeons. He has had his heart evaluated extensively. No current chest pain now. He does have abdominal pain which is also chronic. Nothing new there. No fevers or chills. No lightheadedness or dizziness. No back pain. No diarrhea. No fevers or chills. No diaphoresis. No nausea. Nothing seems to make it better. HPI Nurse's notes for past medical history, surgicalhistory, social history were reviewed. Medications and allergies reviewed. REVIEW OF SYSTEMS (2-9 systems for level 4, 10 or more for level 5) Review of Systems Total of 10 systems reviewed, please see pertinent positives, pertinent negatives above in HPI. PAST MEDICAL HISTORY Past Medical History: Diagnosis Date ? Anxiety ? Emphysema of lung (HCC) ? Fibromyalgia ? Hypertension ? MS (multiple sclerosis) (HCC) SURGICALHISTORY Past Surgical History: Procedure Laterality Date ? BACK SURGERY 1993 ? CHOLECYSTECTOMY 1998 ? HERNIA REPAIR b/l inguinal and abdominal ? SHOULDER SURGERY Bilateral ? TONSILLECTOMY CURRENT MEDICATIONS Previous Medications ACETAMINOPHEN (TYLENOL) 325 MG TABLET Take 1 tablet by mouth every 6 hours as needed for Pain ALBUTEROL SULFATE HFA (VENTOLIN HFA) 108 (90 BASE) MCG/ACT INHALER Inhale 2 puffs into the lungs every 6 hours as needed for Wheezing ASPIRIN 81 MG TABLET Take 81 mg by mouth daily ATORVASTATIN (LIPITOR) 10 MG TABLET Take 10 mg by mouth daily GARLIC OIL PO Take 1,000 mg by mouth LORAZEPAM (ATIVAN) 0.5 MG TABLET Take 0.5 mg by mouth 2 times daily.. MELATONIN 3 MG TABS TABLET Take 40 mg by mouth daily MIRTAZAPINE (REMERON) 30 MG TABLET Take 30 mg by mouth nightly NITROGLYCERIN (NITROSTAT) 0.[address] 0.4 mg under the tongue every 5 minutes as needed for Chest pain up to max of 3 total doses. If no relief after 1 dose, call 911. NUTRITIONAL SUPPLEMENTS (PROVENTRA PO) Take by mouth OMEGA-3 FATTY ACIDS (FISH OIL) 1000 MG CAPS Take 3,000 mg by mouth 3 times daily ONDANSETRON (ZOFRAN ODT) 4 MG DISINTEGRATING TABLET Take 1 tablet by mouth every 8 hours as needed for Nausea or Vomiting VENTOLIN HFA 108 (90 BASE) MCG/ACT INHALER Take 2 puffs by mouth 2 times daily VITAMIN B-12 (CYANOCOBALAMIN) 1000 MCG TABLET Take 1,000 mcg by mouth daily ALLERGIES Hydrocodone; Pregabalin; Atorvastatin; Aubagio [teriflunomide]; Bactrim [sulfamethoxazole-trimethoprim]; Bentyl [dicyclomine hcl]; Citalopram; Citalopram hydrobromide; Colesevelam hcl; Dicyclomine; Duloxetine; Fenofibrate; Hydrochlorothiazide w-amiloride; Magnesium; Metoclopramide; Mobic [meloxicam]; Morphine; Naproxen; Omeprazole magnesium; Penicillins; Polyethylene glycol; Pravastatin; Ranitidine; Rifaximin; Rosuvastatin; Statins; and Copaxone [glatiramer acetate] FAMILY HISTORY Family History Problem Relation Age of Onset ? Cancer Mother ? Other Mother ? Heart Disease Father ? Cancer Maternal Grandmother SOCIAL HISTORY Social History Social History ? Marital status: Spouse name: N/A ? Number of children: N/A ? Years of education: 8, GED and trade school Occupational History ? unemployed Social History Main Topics ? Smoking status: Current Every Day Smoker Packs/day: 0.50 Years: 40.00 Types: Cigarettes ? Smokeless tobacco: Never Used Comment: 1/2 pack for the last year, previously was 3 packs per day ? Alcohol use No Comment: rarely ? Drug use: No Comment: brandon ? Sexual activity: No Other Topics Concern ? None Social History Narrative ? None SCREENINGS @FLOW([id number])@ PHYSICAL EXAM (up to 7 for level 4, 8 or more for level 5) ED Triage Vitals BP Temp Temp Source Pulse Resp SpO2 Height Weight 04/21/18 1210 04/21/18 1207 04/21/18 1207 04/21/18 1207 04/21/18 1207 04/21/18 1210 04/21/18 1207 04/21/18 1207 (!) 152/101 98.1 ?F (36.7 ?C) Oral 106 16 98 % 5' 11 (1.803 m) 187 lb (84.8 kg) Physical Exam Vital signs reviewed general: Alert and oriented ?3 head: Atraumatic eyes: Equal round reactive to light and accommodating, pupils are equal, round and reactive to light and accommodation oropharynx: Clear and well hydrated neck: Supple no lymphadenopathy heart: Regular rate and rhythm, no murmurs lungs: Clear to auscultation bilaterally abdomen: Soft nontender, positive bowel sounds, no peritoneal findings. No rebound or guarding Extremities: Moving all fours, no tenderness. Normal capillary refill. Skin: No rash or lesions neurologically: Alert and oriented ?3, no focal deficit DIAGNOSTIC RESULTS EKG: All EKG's are interpreted by the Emergency Department Physician who either signs orCo-signs this chart in the absence of a traveling clerk. Electrocardiogram, interpreted by myself, sinus rhythm, no acute ST elevation ischemic findings, no acute changes compared to previous. RADIOLOGY: Non-plain film images such as CT, Ultrasound and MRI are read by the radiologist. Plain radiographic images are visualized and preliminarily interpreted by the emergency physician with the below findings: Chest x-ray shows no acute process per radiology. Interpretation per the Radiologist below, if availableat the time of this note: XR CHEST PORTABLE Final Result ED BEDSIDE ULTRASOUND: Performed by ED Physician - none LABS: Labs Reviewed CBC WITH AUTO DIFFERENTIAL - Abnormal; Notable for the following: Result Value MPV 6.4 (*) Eosinophils 0.8 (*) All other components within normal limits Narrative: [facility] Per[facility] by [facility], [address] [place] [address] BASIC METABOLIC PANEL - Abnormal; Notable for the following: CO2 31 (*) Glucose 118 (*) All other components within normal limits Narrative: Test Performed by [facility], [facility] [address] [place] [address] URINALYSIS Narrative: Test Performed by [facility], [facility] [address] [place] [address] TROPONIN Narrative: Test Performed by [facility], [facility] [address] [place] [address] All other labs were within normal range or not returned as of thisdictation. EMERGENCYDEPARTMENT COURSE and DIFFERENTIAL DIAGNOSIS/MDM: Vitals: Vitals: 04/21/18 1302 04/21/18 1332 04/21/18 1402 04/21/18 1502 BP: (!) 145/93 (!) 139/92 (!) 147/84 (!) 149/87 Pulse: 86 87 87 83 Resp: Temp: TempSrc: SpO2: 98% 98% 99% 97% Weight: Height: Emergency Department course: Labs reviewed. Patient is a heart score of 3. This is chronic and I do not believe he has active ACS PE or dissection. Nausea acute surgical abdominal process. He is treated symptomatically here. He be discharged to home. Follow-up with primary care physician. Follow-up in 2 days. Return here if any problems or concerns. MDM CRITICAL CARE TIME Total Critical Care time was 0 minutes, excluding separately reportable procedures. There was a high probability of clinically significant/life threatening deterioration in the patient's condition which required my urgentintervention. CONSULTS: None PROCEDURES: Unless otherwise noted below, none Procedures FINAL IMPRESSION 1. Chest pain, unspecified type 2. Abdominal pain, unspecified abdominal location DISPOSITION/PLAN DISPOSITION Decision To Discharge 04/21/2018 03:35:39 PM PATIENT REFERRED TO: Addison Bernard MD [address] [facility] [address] [place] [address] In 2 days For follow-up care DISCHARGE MEDICATIONS: New Prescriptions No medications on file (Comment: Please notethis report has been produced using speech recognition software and may contain errors related to that system including errors in grammar, punctuation, and spelling, as well as words and phrases that may be inappropriate.If there is any questions or concerns please feel free to contact the dictating provider for clarification). Harsha Benavidez MD (electronically signed) Attending Emergency Physician Harsha Benavidez MD 04/21/18 1536 ER Observed: 04/19/2018 Status: UNK Source: [facility] 6:26 AM [employer] REPOSITORY This is a preliminary report only, as the practitioner review and authentication has not occurred. ER Observed: 04/19/2018 Status: UNK Source: [facility] 6:26 AM [employer] REPOSITORY PHYSICIAN ASSESSMENT RECORDS : FlexChartData Event Time: 04/19/2018 05:45 CMCA Status: Signed [facility] Oliver Marisa [[id number]] Mid-Level Addendum 57 / M / 1960 (V2b) Chart created at 04/19/2018 05:44 by Nalini Hoang Chart closed at 04/19/2018 06:08 Entry in Emergency Department at 04/19/2018 03:10, departure at 04/19/2018 06:26 Patient Name: Oliver Cunningham Record Number: [id number] Date: 04/19/2018 05:44 Entered Department at: 04/19/2018 03:10 Patient Seen at: 04/19/2018 04:40 PCP: Addison Bernard Chief Complaint:chest pain intermittently for awhile. pt states the mesh from his inguinal hernia repair is blocking the blood flow and the medication aubagio hardens in his blood stream which is causing his chest pain. Cardiogram: Interpreted by me. Read Time: 04/19/2018 06:08 Rate: 112 bpm. Rate TachycardiaRhythm Sinus RhythmAxis NormalIntervals NormalQRS NormalST/T Non-Specific ST Changes Comparison: Unchanged from 04/13/2018. Radiology: Patient refused. Medical Decision Making [facility] PATIENT NAME: OLIVER CUNNINGHAM [address] MEDICAL REC #: [id number] [place] [address] EMERGENCY DEPARTMENT REPORT EMERGENCY DEPARTMENT PHYSICIAN Patient declined his chest x-ray. He states that he has had many in the past and does not want another one now. I believe this is reasonable. Direct patient care supervision and electronic documentation review by Sandra John on 04/19/2018 06:28. : FlexChartData Event Time: 04/19/2018 05:30 CMCA Status: Signed [facility] Oliver Cunningham [[id number]] Mid-Level Chart (V2b) 57 / M / 1960 Chart created at 04/19/2018 05:17 by Nalini Hoang Chart closed at 04/19/2018 05:27 Entry in Emergency Department at 04/19/2018 03:10, departure at 04/19/2018 06:26 Patient Name: Oliver Cunningham Record Number: [id number] Date: 04/19/2018 05:17 Entered Department at: 04/19/2018 03:10 Patient Seen at: 04/19/2018 04:40 Historian: Patient PCP: Addison Bernard Chief Complaint:chest pain intermittently for awhile. pt states the mesh from his inguinal hernia repair is blocking the blood flow and the medication aubagio hardens in his blood stream which is causing his chest pain. Nursing triage/initial assessment reviewed and confirmed and Initial Vital Signs reviewed. Temperature: 98.7 F (37.1 C). Pulse: 107. Respiratory Rate: 18. Blood-pressure: 134/78. Oxygen Saturation: 96%. [facility] PATIENT NAME: OLIVER CUNNINGHAM [address] MEDICAL REC #: [id number] [place] [address] EMERGENCY DEPARTMENT REPORT EMERGENCY DEPARTMENT PHYSICIAN History of Present Illness: 57-Year-old male here for evaluation of torso pain which began in 2017 after a hernia repair. The patient notes that he has had intermittent pain in his chest and abdomen extending from his inguinal area all the way up into his upper chest intermittently ever since he had a hernia repair done in 2017. He believes that a medication that he was given at the time has caused blockages in his arteries. He states that this is because the pain in his abdomen and his chest that has caused him to be short of breath intermittently. He states that he has been to multiple doctors and surgeons regarding this issue and there has not been a conclusive diagnosis to explain his pain. He notes that he is also called the drug manufacture to discuss his symptoms and they were unable to provide him with any answers. He states that his symptoms today are similar to the symptoms that he has had in the past. He denies any new symptoms. He denies any fever or chills. He denies any nausea, vomiting, or diarrhea. He denies any urinary symptoms. He denies any other concerns or complaints at this time. Review of Systems. Constitutional: negative for Chills or Fever Eyes: negative for Discharge, Eye Pain, Redness or Vis. Changes Ear/Nose/Throat: negative for Earache, Congestion, Rhinorrhea or Sore Throat Cardio-Vascular: positive for Chest Pain, negative for Orthopnea, Palpitations or Syncope Skin: negative for Rash Respiratory: positive for Dyspnea, negative for Cough, Hemoptysis or Wheezing GI: positive for Abd. Pain, negative for Diarrhea, Nausea or Vomiting : negative for Dysuria, Frequency, Hematuria or Urgency Musculo-Skeletal: negative for Back Pain, Joint Pain, Myalgias or Neck Pain Neurological: negative for Confusion, Headache, Numbness or Weakness Past History, Medications, Allergies, Social History and Family History reviewed in nurses note. Medications: Reviewed RN Note. lorazepam 0.5mg po prn , remeron 30mg po at hs , [facility] PATIENT NAME: OLIVER CUNNINGHAM [address] MEDICAL REC #: [id number] [place] [address] EMERGENCY DEPARTMENT REPORT EMERGENCY DEPARTMENT PHYSICIAN inhaler prn Allergies: Reviewed RN Note PCN(Rash), mobic(Rash), lyrica(agitation of nerves), cymbalta(palpitations), abaugio(plugs arteries), copaxone(Rash), hydrochlorothiazide(syncope), Reglan(chest pain), trulance(Unknown), Magnesium Sulfate(BURNING), WELCHOL(ABDOMINAL PAIN) Social History: Reviewed RN Note. Family History: Reviewed RN Note Physical Examination: General: Alert and Well Developed; Well-appearing. No acute distress. Nontoxic. HEENT: Normocephalic/atraumatic. Mucous members are moist. Bilateral conjunctival without injection or drainage.. Neck: Supple Respiratory: No Resp Distress and Normal Breath Sounds; No wheezing, rales, or rhonchi. There is mild, diffuse tenderness to palpation of the anterior chest wall. Cardio-Vascular: No murmur and RRR Abdomen: Normal active bowel sounds x4. Abdomen is soft. There is mild, diffuse tenderness. No peritoneal signs. No distention. There are well-healed surgical scars over the lower abdomen. Bilateral femoral pulses are 2+. No palpable masses in the abdomen. No bruits. Back: No CVA tenderness and Non-tender Extremity: No Calf Tenderness, No edema and Normal Equal pulses Neurological: Alert, Oriented X3 and No Gross Weakness Skin: No rash, Warm and Dry Psychological: Mood/Affect Normal and Normal Memory/Judgment Medical Decision Making This is a 57-year-old male here for evaluation of chest and abdominal pain and shortness of breath which has been present intermittently for many years now. Please see HPI for full history. The patient had a hernia repair done in 2017. Since then, he has had pain in his chest and abdomen extending from his inguinal area to his upper chest. He is convinced that this is secondary to the hernia repair and a medication he was given at the time. He has been seen here in the emergency department for the same [facility] PATIENT NAME: OLIVER CUNNINGHAM [address] MEDICAL REC #: [id number] [place] [id number] EMERGENCY DEPARTMENT REPORT EMERGENCY DEPARTMENT PHYSICIAN complaints on multiple occasions over the past year. He has received a CTA of the chest which was negative. He has received CT of the abdomen and pelvis with contrast which was negative. He has had lab work, EKG, and troponins all done on multiple occasions which were all unremarkable. He states that he himself has been to multiple specialists including multiple surgeons who have had no success finding an etiology for his pain. He is even seen pain management for this. He states that his symptoms today are no different than his symptoms that he normally has. His physical exam is unremarkable. His vitals are all within normal limits with the exception of mild tachycardia at 107. He has yet another normal workup today with a CBC showing a normal white count and no anemia. No electrolyte abnormality or kidney dysfunction on the BMP. He has an EKG that shows no concerning signs for ischemia. He has a troponin which is negative at 0.00. He had a normal cardiac stress test in November of this year. My concern for acute ACS is low. His abdomen is benign. Normoactive bowel sounds x4 with mild, diffuse tenderness. No peritoneal signs or distention. Had a chest x-ray which was normal. At this time, I do believe there is anything more we can do for the patient to assess his symptoms. They are likely more psychosomatic in nature. I advised the patient that he should continue taking Tylenol Motrin as needed for pain and to follow-up with his regular doctor. He may always return if he develops any new or worsening symptoms. He verbalized understanding of all the above and was agreeable. Additional Information: Discussed Results, Diagnosis and Follow-Up with Patient. Clinical Impression: 1. Chronic chest and abdominal pain, unclear etiology Disposition: Discharged . Condition: Good Direct patient care supervision and electronic documentation review by Sandra John on 04/19/2018 [facility] PATIENT NAME: OLIVER CUNNINGHAM [address] MEDICAL REC #: [id number] [place] [address] EMERGENCY DEPARTMENT REPORT EMERGENCY DEPARTMENT PHYSICIAN 06:28. : FlexChartData Event Time: 04/19/2018 07:00 Status: Signed [facility] Oliver Banegaskahlil [[id number]] Attending Physician 57 / M / 1960 Addendum (V2b) Chart created at 04/19/2018 06:24 by Sandra John Chart closed at 04/19/2018 06:27 Entry in Emergency Department at 04/19/2018 03:10, departure at 04/19/2018 06:26 Patient Name: Oliver Cunningham Record Number: [id number] Date: 04/19/2018 06:24 Entered Department at: 04/19/2018 03:10 Patient Seen at: 04/19/2018 04:40 PCP: Addison Bernard Chief Complaint:chest pain intermittently for awhile. pt states the mesh from his inguinal hernia repair is blocking the blood flow and the medication aubagio hardens in his blood stream which is causing his chest pain. Note: Patient presents with groin pain that radiates diffusely about his body. This has been going on for years and he feels it is related to a medication he took in 2017. He is insistent that somebody needs to open up his arteries. He has been through extensive testing recently including stress test and angiography. There has been no evidence of blockage. The patients evaluation here again is unremarkable. I feel he can be safely discharged. Patient was agitated that we could not give him anything to bind his blood. He stated that the [facility] put mesh in his groin that migrated around his entire body and he needs someone to remove it. He is insistent that he has remaining medication in his body that needs to be surgically removed. I attempted to explain to [facility] PATIENT NAME: OLIVER CUNNINGHAM [address] MEDICAL REC #: [id number] [place] [address] EMERGENCY DEPARTMENT REPORT EMERGENCY DEPARTMENT PHYSICIAN him that it was not possible and that no such treatments exist. He then became agitated and pulled off his leads before leaving the emergency department. Agree with history/exam documented on primary chart and Patient Interviewed by me. MSE completed. I was the primary ED attending.. Medicare shared visit: I have personally evaluated this patient. I have supervised the MLP, reviewed their documentation, and agree with their findings, assessment and plan. See [facility] for my summary of donovan elements of this patient visit.. : Discharge Report Event Time: 04/19/2018 05:26 ===DISCHARGE REPORT=== : FlexChartData Event Time: 04/19/2018 05:45 CMCA : FlexChartData Event Time: 04/19/2018 05:30 CMCA : FlexChart[employer] Event Time: 04/19/2018 07:00 : Discharge Report Event Time: 04/19/2018 05:26 Status: Draft Reasons to Return to the ER: You must return to the ER for any new, worsening or changing symptoms, or if you feel more ill or sick in any way. This is the most important thing to remember. Follow-up: The care you received in the ER was given on an emergency basis only, and it is often not possible to completely treat or diagnose a problem in a single ER [facility] PATIENT NAME: OLIVER CUNNINGHAM [address] MEDICAL REC #: [id number] [place] [address] EMERGENCY DEPARTMENT REPORT EMERGENCY DEPARTMENT PHYSICIAN visit. You must see your follow-up doctor for a recheck within a week unless you receive instructions with a different timeframe for follow-up. Please follow all your discharge instructions. Medications: Unless the ER doctor tells you differently, you should take all your regular medications and any new medications prescribed today. Because it is not possible for the ER doctor to review all of your medication side effects or interactions, you must review possible side effects and interactions with your pharmacist when you get your prescriptions filled. EKG and Radiology Results: A traveling clerk or radiologist will review any EKG or radiology results provided by the ER doctor. We will contact you if the results in the final EKG or radiology reports require a change in treatment. Culture Results: Cultures may have been ordered during your ER visit. We will contact you if the culture results require a change in treatment. Referrals: Most referrals to specialists come from the on-call list You should make your regular doctor aware of any referrals before you schedule the appointment so that they are aware and can make suggestions DIAGNOSIS: Chronic chest and abdominal pain, unclear etiology INSTRUCTIONS: You may take 650 mg of Tylenol with 400-600 mg of ibuprofen every 6-8 hours if needed for pain. Rest and drink plenty of healthy fluids. Follow-up with your regular doctor. Return if you develop any new or worsening symptoms. [facility] PATIENT NAME: OLIVER CUNNINGHAM [address] MEDICAL REC #: [id number] [place] [address] EMERGENCY DEPARTMENT REPORT EMERGENCY DEPARTMENT PHYSICIAN UNLESS THE ER DOCTOR GIVES YOU OTHER INSTRUCTIONS, YOU MUST SEE YOUR FOLLOW-UP DOCTOR WITHIN 1 TO 2 DAYS FOR RECHECK. YOU MUST RETURN TO THE ER RIGHT AWAY FOR ANY OF THE FOLLOWING:Increasing painChange in the location of the painNew or increasing fever or chillsNew or increasing constipation or difficulty urinatingNew or increasing abdominal swelling or bloatingBlood appears in the stool, vomit or urineNew or increasing vomiting or diarrhea.New or increasing weakness or dizzinessEarly appendix infection is always a possibility and you must return if the pain moves to the lower right side of your abdomen UNLESS THE ER DOCTOR GIVES YOU OTHER INSTRUCTIONS, YOU MUST SEE YOUR FOLLOW-UP DOCTOR WITHIN 2 TO 3 DAYS FOR RECHECK. YOU MUST RETURN TO THE ER RIGHT AWAY FOR ANY OF THE FOLLOWING: andamp;#8226; Pain increases or lasts longer than 5 minutes. Call . If EMS is not available, have someone else drive you. Dont drive yourself unless you have absolutely no other option. andamp;#8226; Pain becomes more heavy or pressure-like andamp;#8226; Pain begins to travel to your arms, neck or jaw andamp;#8226; New or increasing shortness of breath or cough andamp;#8226; New or increasing weakness or dizziness andamp;#8226; New or increasing fever or chills andamp;#8226; New or increasing nausea, vomiting or sweating Risk Factors for Coronary Artery Disease (CAD) A risk factor is something that increases your chance of getting a disease or condition such as heart [facility] PATIENT NAME: OLIVER CUNNINGHAM [address] MEDICAL REC #: [id number] [place] [address] EMERGENCY DEPARTMENT REPORT EMERGENCY DEPARTMENT PHYSICIAN disease. The more risk factors you have, the more chance you have of having a heart attack. The best way to prevent a heart attack is to reduce heart disease risk factors. Uncontrollable Risk Factors include: Male Gender Men are more likely to develop coronary artery disease until women reach menopause, when the risk becomes more equal. Heredity and Race Family history of coronary artery disease shows an inherited tendency to develop the disease. Blacks/ Americans have a higher risk than Whites/Caucasians, as do Hispanics, [place]-Indians, -Americans or [place]ians. Age Coronary artery disease develops slowly but can strike at any age. People over age 65 are at greater risk than those at younger ages. Controllable Risk Factors include: High Blood Pressure High blood pressure makes the heart work harder than normal. It puts extra stress on arteries that lead to blockages called atherosclerosis. Lifestyle changes and medication can positively affect high blood pressure. If you have high blood pressure and are on medication, it is essential that you take your medication to avoid the risks of heart attack, as well as stroke and kidney damage. High Blood Cholesterol Cholesterol can narrow and clog arteries. Lowering the amount of cholesterol circulating in the blood can lower the risk of a heart attack. If you have high blood cholesterol, eating a healthy diet, maintaining [facility] PATIENT NAME: OLIVER CUNNINGHAM [address] MEDICAL REC #: [id number] [place] [address] EMERGENCY DEPARTMENT REPORT EMERGENCY DEPARTMENT PHYSICIAN a healthy weight, getting regular exercise and taking any prescribed cholesterol lowering medication will help lower your cholesterol and your risk for coronary artery disease. Smoking Smoking is the single most preventable cause of . Smokers increase their risk of heart disease from the nicotine and carbon monoxide that damages the blood vessels. Smokers have more than twice the risk of a heart attack than nonsmokers. Tobacco addiction is both psychological and physical. For most people, the best way to quit is a combination of medicine, a plan to change personal habits, and having emotional support. Physical Activity Physical activity helps control high blood pressure, high blood cholesterol, obesity, stress and can build a stronger heart and blood vessels. Regular, jvqvxaly-aq-qgpnatyv exercise is important to reduce the risk of heart disease. Consult your physician first before starting an exercise program. Obesity People with excess body fat are at higher risk for health problems. Weight loss can help reduce high blood pressure, blood cholesterol, and can also help control diabetes in some people. Diabetes Uncontrolled high blood sugar (glucose) levels can lead to many medical problems including heart and blood vessel disease, kidney disease and stroke because it damages blood vessels. If you have diabetes, tight blood sugar control is crucial to avoiding these long-term complications. Stress Too much stress over a long time, and an unhealthy response to it, can cause health problems. Find [facility] PATIENT NAME: OLIVER CUNNINGHAM [address] MEDICAL REC #: [id number] [place] [address] EMERGENCY DEPARTMENT REPORT EMERGENCY DEPARTMENT PHYSICIAN healthy ways to handle stress. Available Smoking Help: [facility] Smoking Cessation Program ([phone]) Telephone Quitlines with trained personnel to assist in smoking cessation ( ) 24 hour Crisis Smoking Cessation Support line ( ) [place] [employer] ( ) [place] [employer] ( ) [place] [employer] ( ) Diet and Weight Loss: Weight loss is about losing body fat. Your goal in losing weight is to reduce your body fat and maintain or increase your lean body mass. Lowering your body fat helps in maintaining a healthy heart and lowering the workload on the heart. To accomplish this, one needs to lower your daily calorie intake and increase your physical activity. A healthy heart diet is a low cholesterol, low fat, no added salt diet. Your metabolism can be increased by eating right and exercising. To burn calories at a higher rate: 1) Always eat breakfast 2) Eat a balanced low fat lunch 3) Eat a light dinner [facility] PATIENT NAME: OLIVER CUNNINGHAM [address] MEDICAL REC #: [id number] [place] [address] EMERGENCY DEPARTMENT REPORT EMERGENCY DEPARTMENT PHYSICIAN 4) Exercise 3-5 days a week Exercise: Your heart muscle needs exercise to get stronger. Regular exercise also is a preventative measure for many health problems. The best type of exercise for your heart, lungs and blood vessels are aerobic exercises. Aerobic exercises are continuous exercises that use large muscle groups that increase your breathing and heart rate. Some examples are walking, bicycling, swimming and jogging. Before you start an exercise program, first check with your doctor. To help with your exercise success: 1) Make the time 2) Make exercise convenient 3) Team up with a friend or join a group [facility] have trained personnel that can assist you with diet and exercise. Please call: [facility] Dietary Outpatient Department ([phone]) [facility] ([phone]) [facility] ([phone]) Medications Medications help support the work of your heart and reduce your risk profile. Many times, taking medications is new to your lifestyle. To be successful and compliant with your medication regime, you must set up a medication schedule that works for you. Know the purpose and side effects of each [facility] PATIENT NAME: OLIVER CUNNINGHAM [address] MEDICAL REC #: [id number] [place] [address] EMERGENCY DEPARTMENT REPORT EMERGENCY DEPARTMENT PHYSICIAN medication you are taking. Carry a written list of all your medications, both prescribed and over the counter drugs. Place a written list on your refrigerator door for paramedics to see if an emergency arises. Keep all physicians updated on any medication changes. Dont just stop a medication on your own; notify your physician first. Set up a daily medication schedule that works for you. Use assistance devices such as, pill boxes, watch alarms, written time calendars, etc if needed. Plan ahead so you dont come up short. Re-order early so you dont miss any doses Physician follow up is very important to assess how well your medication is working for you. If you have any questions on your medications, contact your physician or pharmacist. REFERRAL Addison Bernard MD (Primary Care), , fax: Please call the above number to schedule a follow-up appointment. next week MEDICATIONS We have given you these prescriptions that you must fill and start taking: None COMMENTS: Patient Satisfaction: Within the first few days after your visit, you will receive an email and/or phone call regarding your visit. We value your feedback, and would appreciate it if you would take the time to complete this short survey. If you receive a call, it will be between 6p and 8p. [facility] PATIENT NAME: OLIVER CUNNINGHAM [address] MEDICAL REC #: [id number] [place] [address] EMERGENCY DEPARTMENT REPORT EMERGENCY DEPARTMENT PHYSICIAN My signature below indicates that I have received and understand the oral instructions regarding my medical problem. I also acknowledge receipt of this written instruction sheet including a list of major tests and procedures ordered during my visit. I will arrange for follow-up care as indicated by these instructions and referrals. This signed original will be kept in my medical record. Your signature below indicates consent for Case Management to contact [facility] providers in an effort to meet your ongoing healthcare needs. This will allow forcontinuity of care once you leave the Emergency Department. This exchange of informationwill include, but not be limited to, disclosure of your patient information and possible release of records. 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 pt states the mesh from his inguinal hernia repair is blocking the blood flow and the medication aubagio [facility] PATIENT NAME: OLIVER CUNNINGHAM [address] [facility] [facility] [address] MEDICAL REC #: [id number] [place] [address] EMERGENCY DEPARTMENT REPORT EMERGENCY DEPARTMENT PHYSICIAN hardens in his blood stream which is causing his chest pain. Arrival Date: 04/19/2018 03:10 Triage Date: 04/19/2018 03:12 Mode of Arrival: *Privately Owned Vehicle Transfer From: * Home WC: N Language: Cypriot Transport: Ambulatory/Walk In BED C30 In: 04/19/2018 04:35:49 04/19/2018 04:35:49 KSE1 C30 (Removed From) Out: 04/19/2018 06:26:53 04/19/2018 06:26:53 NSB PROVIDERS VINNY HOANG Provider Contact: 04/19/2018 04:39:59 CMCA End: MD Sandra John Provider Contact: 04/19/2018 04:40:01 MDW End: MIRIAM JI Provider Contact: 04/19/2018 04:49:52 NSB End: TRIAGE HISTORY ALLERGIES Allergic To: PCN - Rash 04/19/2018 03:19 KSE1 Allergic To: mobic - Rash 04/19/2018 03:19 KSE1 Allergic To: lyrica - agitation of nerves 04/19/2018 03:19 KSE1 [facility] PATIENT NAME: BEATRIZCAMOLIVER [address] [facility] [facility] [address] MEDICAL REC #: [id number] [place] [address] EMERGENCY DEPARTMENT REPORT EMERGENCY DEPARTMENT PHYSICIAN Allergic To: cymbalta - palpitations 04/19/2018 03:19 KSE1 Allergic To: abaugio - plugs arteries 04/19/2018 03:19 KSE1 Allergic To: copaxone - Rash 04/19/2018 03:19 KSE1 Allergic To: hydrochlorothiazide - syncope 04/19/2018 03:19 KSE1 Allergic To: Reglan - chest pain 04/19/2018 03:19 KSE1 Allergic To: trulance - Unknown 04/19/2018 03:19 KSE1 Allergic To: Magnesium Sulfate - BURNING 04/19/2018 03:19 KSE1 Allergic To: WELCHOL - ABDOMINAL PAIN 04/19/2018 03:19 KSE1 CURRENT MEDS Name: lorazepam 0.5mg po prn 04/19/2018 03:19 KSE1 Name: remeron 30mg po at hs 04/19/2018 03:19 KSE1 Name: inhaler prn 04/19/2018 03:19 KSE1 ILLNESS Illness: Anxiety 04/19/2018 03:19 KSE1 Illness: Emphysema 04/19/2018 03:19 KSE1 Illness: scleraderma 04/19/2018 03:19 KSE1 Illness: multiple sclerosis 04/19/2018 03:19 KSE1 PAST SURGERY HIST Surgery: Hernia Repair 04/19/2018 03:19 KSE1 Surgery: Cholecystectomy 04/19/2018 03:19 KSE1 Surgery: lower back 04/19/2018 03:19 KSE1 Surgery: bilateral shoulder 04/19/2018 03:19 KSE1 [facility] PATIENT NAME: OLIVER CUNNINGHAM [address] [facility] [address] [place] MEDICAL REC #: [id number] [place] [address] EMERGENCY DEPARTMENT REPORT EMERGENCY DEPARTMENT PHYSICIAN Surgery: Tonsillectomy 04/19/2018 03:19 KSE1 Surgery: PARTIAL AMPUTATION RIGHT 3RD andamp; 4TH FINGERS 04/19/2018 03:19 KSE1 Surgery: Hernia Repair X 2 04/19/2018 03:19 KSE1 PAST SOCIAL HIST Social History: Communicates without difficulty 04/19/2018 03:19 KSE1 Social History: Lives with family or significant other 04/19/2018 03:19 KSE1 Social History: Alcohol - None 04/19/2018 03:19 KSE1 Social History: Recreational Drugs - None 04/19/2018 03:19 KSE1 Social History: Alcohol - Occasional- 04/19/2018 03:19 KSE1 Social History: Smoker-1/2 PPD 04/19/2018 03:19 KSE1 Social History: Denies Domestic Violence 04/19/2018 03:19 KSE1 Social History: Denies thoughts of self harm. 04/19/2018 03:19 KSE1 Social History: Have you traveled in the past month? Where NO 04/19/2018 03:19 KSE1 IMMUNIZATIONS Immunization: Pneumonia Vaccine-no 04/19/2018 03:19 KSE1 Immunization: Flu Vaccine-no 04/19/2018 03:19 KSE1 NURSING ASSESSMENT ASSESSMENT NOTES [facility] PATIENT NAME: OLIVER CUNNINGHAM [address] [facility] [address] [facility] [address] [place] MEDICAL REC #: [id number] [place] [address] EMERGENCY DEPARTMENT REPORT EMERGENCY DEPARTMENT PHYSICIAN 04/19/2018 04:43 PT C/O CP THAT HAS BBEEN GOING ON FOR MONTHS. PT STATES THE PAIN HAS GOTTEN WORSE. 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 PT STATES THE PAIN RADIATES FROM HIS GROIN TO HIS CHEST. PT STATES HE STOPPED TAKING A MEDICATION OVER A YEAR AGO BUT THE MEDICATION IS BUILDING UP IN HIS SYSTEM CAUSING STABBING, CRUSHING PAIN. PT C/O SOB AND N/V. PT STATES HIS KIDNEYS ARE HARDENING WELL AND HE HAS ITERMITTENT DYSURIA 04/19/2018 04:48 NSB 04/19/2018 05:30 PT REFUSED CHEST XRAY STATING ITS NOT GOING TO SHOW ANYTHING DIFFERENT. NALINI KWONG NOTIFIED 04/19/2018 05:57 NSB 04/19/2018 06:24 PT LEFT BEFORE COMPLETING DISCHARGE. PT STATES HE IS NOT HAPPY BECAUSE NOONE WILL LISTEN TO HIM. PT REFUSED TO REVIEW D/C PAPERWORK 04/19/2018 06:26 NSB TREATMENT 04/19/2018 03:45 POC testing results and critical values - POC Troponin 0.00 on ED triag instrument 04/19/2018 04:00 RJR 04/19/2018 04:48 Primary DOC Guide - A. 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 Fall Risk Assessment (Age andlt;65) 04/19/2018 04:49 NSB History of Falling in last 3 months? Yes (1) Confusion or Disorientation? No (0) Intoxicated or Sedated? No (0) Impaired Gait? No (0) [facility] PATIENT NAME: OLIVER CUNNINGHAM [address] [facility] [address] [facility] [address] MEDICAL REC #: [id number] [place] [address] EMERGENCY DEPARTMENT REPORT EMERGENCY DEPARTMENT PHYSICIAN Mobility Assist Device Used? No (0) Altered Elimination? No (0) Fall Risk Score 1-2 Points = Low Risk. 3-4 Points = Moderate Risk. 5 or more points = High Risk. 1 Fall Score Greater andgt;= 3? No 04/19/2018 04:49 Primary DOC Guide - D. Psychosocial Assessment 04/19/2018 04:49 NSB Over the Last 2 weeks, how often have you had little interest or pleasure in doing things (0) Not at All Is Psychosocial Assessment Score 3 or more? If score is 3 or more please consult ED Navigator! No Total Psychosocial Assessment Score 0 Over the last 2 weeks, how often have you been feeling down, depressed or hopeless (0) Not at All 04/19/2018 04:49 Primary DOC Guide - E. Family Violence Assessment 04/19/2018 04:49 NSB Within the past year, has anyone ever pushed, shoved, slapped, choked, hit, punched or kicked you: No Within the past year, has anyone ever pressured or forced you to have sexual activities when you did not want to: No Do you feel safe and well cared for: Yes Is there a partner from a previous or current relationship that is making you feel unsafe now: No CANCELLED TREATMENTS Admit/Discharge - Ambulated with steady gait home 04/19/2018 06:21 NSBDelete Time: 04/19/2018 06:24 Delete Notes: ERROR Discharge - Printed discharge instructions given to pt. 04/19/2018 06:21 NSBDelete Time: 04/19/2018 06:24 Delete Notes: ERROR Discharge - Instructions reviewed with pt and verbalizes understanding 04/19/2018 06:21 NSBDelet Time: 04/19/2018 06:24 Delete Notes: ERROR Education - Reasons for test discussed with patient. 04/19/2018 06:21 NSBDelete Time: 04/19/2018 06:24 Delete Notes: ERROR MEDICATIONS [facility] PATIENT NAME: OLIVER CUNNINGHAM [address] [facility] [address] MEDICAL REC #: [id number] [place] [address] EMERGENCY DEPARTMENT REPORT EMERGENCY DEPARTMENT PHYSICIAN IV I AND O VITALS VS-ROUTINE Time: 04/19/2018 03:12 B/P: 134/78 - Right Upper Arm - Sitting - Machine Pulse: 107 - Monitor Resp: 18 Sa02: 96 Room Air Temp: 98.70 F - Oral 04/19/2018 03:19 KSE1 VS-Pain Time: 04/19/2018 03:12 Pain Level: 10 04/19/2018 03:19 KSE1 VS-GCS Time: 04/19/2018 03:12 Visual: 4 Verbal: 5 Motor: 6 GCS Total: 15 04/19/2018 03:19 KSE1 VS-HT/WT Time: 04/19/2018 03:12 Ht: 180.3 cm Stated Weight: 84.8 kg Stated 04/19/2018 03:19 KSE1 VS-Visual Time: 04/19/2018 03:12 04/19/2018 03:19 KSE1 VS-FHT Time: 04/19/2018 03:12 04/19/2018 03:19 KSE1 VS-Notes Time: 04/19/2018 03:12 map: 99 04/19/2018 03:19 KSE1 VS-ROUTINE Time: 04/19/2018 05:28 B/P: 142/80 - Left Upper Arm - Lying - Machine Pulse: 86 - 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 Other Reviewed: 04/19/2018 06:18 By . Other [facility] PATIENT NAME: OLIVER CUNNINGHAM [address] [facility] [address] [facility] [address] MEDICAL REC #: [id number] [place] [address] EMERGENCY DEPARTMENT REPORT EMERGENCY DEPARTMENT PHYSICIAN AWNING CRAFTSMAN ORDER: GFRP 04/19/2018 04:04 None Ordered: 04/19/2018 04:04 Completed Time: 04/19/2018 04:04 Results Time: 04/19/2018 04:03 AWNING CRAFTSMAN ORDER: POCTROP 04/19/2018 03:51 None Ordered: 04/19/2018 03:51 Completed Time: 04/19/2018 03:51 Results Time: 04/19/2018 03:51 BMP 04/19/2018 04:04 N/A Ordered: 04/19/2018 03:20 By Protocol Completed Time: 04/19/2018 04:04 By Protocol Noted Time: 04/19/2018 03:34 RJR Results Time: 04/19/2018 04:03 CBC with diff 04/19/2018 03:44 N/A Ordered: 04/19/2018 03:20 By Protocol Completed Time: 04/19/2018 03:44 By Protocol Results Time: 04/19/2018 03:43 EKG and most recent EKG 04/19/2018 03:59 N/A Ordered: 04/19/2018 03:20 By Protocol Completed Time: 04/19/2018 03:18 By Protocol Noted Time: 04/19/2018 03:13 RJR POC troponin 04/19/2018 03:59 N/A Ordered: 04/19/2018 03:20 By Protocol Completed Time: 04/19/2018 03:45 By Protocol Noted Time: 04/19/2018 03:31 RJR CXR PA and lateral 04/19/2018 05:39 N/A Ordered: 04/19/2018 04:40 By NALINI HOANG Indication: Chest Pain Question: How is patient transported? (A = Ambulatory, B = Bed, C = Carry, CR = Crib, P = Portable, S = Stretcher, W = Wheelchair, X = Wide Wheelchair, XT = Trauma X RM17 (ED Only)) Answer: STRETCHER Cancelled: 04/19/2018 05:38 NSB Cancelled Reason: PT REFUSED [facility] PATIENT NAME: OLIVER CUNNINGHAM [address] [facility] [address] [facility] [address] MEDICAL REC #: [id number] [place] [address] EMERGENCY DEPARTMENT REPORT EMERGENCY DEPARTMENT PHYSICIAN DISCHARGE Diagnosis: Chronic chest and abdominal pain, unclear etiology 04/19/2018 05:26 CANCELLED DIAGNOSES Diagnosis Name: Chronic chest and abdominal pain, unclear etiology Disposition: Time: 04/19/2018 05:25 Discharge Time: 04/19/2018 06:26 Type: Discharge Condition: Stable for admission/discharge/transfer after emergency evaluation/treatment Category: *NOT APPLICABLE Referral: 04/19/2018 05:26 Admit Physician: . Other PRESCRIPTIONS CHARGES SIGNATURE Ashlie Hudson RN KSE1 Anibal Dailey RJR Sandra TAVAREZ [facility] PATIENT NAME: OLIVER CUNNINGHAM [address] MEDICAL REC #: [id number] [place] [address] EMERGENCY DEPARTMENT REPORT EMERGENCY DEPARTMENT PHYSICIAN TROPONIN I POC Collected: 04/19/2018 Status: F Source: [facility] 3:31 AM [facility] REPOSITORY TYPE CODE TESTS RESULT OUT OF RANGE REFERENCE UNITS LAB L550.66494 0.0-0.06 NG/ML Normal TROPONIN I POC 0.00 Result Comment: 0.0 - 0.06 NG/ML - NON- DIAGNOSTIC (REFERENCE RANGE) 0.07 - 0.59 NG/ML - INDETERMINATE Greater than or equal to 0.6 NG/ML - INDICATIVE OF MYOCARDIAL DAMAGE CBC W/DIFF Collected: 04/19/2018 Status: F Source: [facility] 3:28 AM [facility] REPOSITORY Order Comment: [place]: M TYPE CODE TESTS RESULT OUT OF RANGE REFERENCE UNITS LAB L200.91833 4.5-11.0 K/CUMM WBC Normal 9.1 LAB L200.19703 4.50-6.00 M/CU MM Low RBC 4.39 LAB L200.91423 13.5-17.5 G/DL HGB Normal 14.5 LAB L200.51311 41.0-53.0 % HCT Normal 41.8 LAB L200.92240 80.0-99.0 fl MCV Normal 95.2 LAB L200.19666 32.0-36.0 GM/DL MCHC Normal 34.7 LAB L200.28848 11-14.5 RDW Normal 12.3 LAB L200.52352 9.4-12.4 Low MPV 8.6 LAB L200.81393 150-450 K/CU MM PLT Normal 247 LAB L200.21897 45-75 % NEUTROPHILS Normal % 68.2 LAB L200.71715 Less than 2 % IMMATURE Normal GRAN % 0.4 LAB L200.65473 20-40 % LYMPH % Normal 20.1 LAB L200.56493 2-10 % MONOCYTE % Normal 9.1 LAB L200.35966 0-5 % EOSINOPHIL Normal % 1.8 LAB L200.35242 0-2 % BASOPHIL % Normal 0.4 LAB L200.95746 2.0-8.3 K/CU MM NEUTROPHIL Normal ABS 6.20 LAB L200.41403 Less than 2 K/CU MM IMMATR GRAN Normal ABS 0.00 LAB L200.71378 0.9-4.4 K/CU MM LYMPH ABS Normal 1.80 LAB L200.59268 0.1-1.1 K/CU MM MONO ABS Normal 0.80 LAB L200.22011 0-0.5 K/CU MM EOS ABS Normal 0.20 LAB L200.79390 0-0.2 K/CU MM BASO ABS Normal 0.00 LAB L200.14491 Less than 1 % NRBC Normal 0.0 Performed By: #### L200.42090 #### [facility] [address] [place] [id number] BMP Collected: 04/19/2018 Status: F Source: [facility] 3:28 AM [facility] REPOSITORY Order Comment: [place]: TYPE CODE TESTS RESULT OUT OF RANGE REFERENCE UNITS LAB L500.66273 136-145 MMOL/L Normal NA 140 LAB L500.62419 3.5-5.1 MMOL/L Normal K 3.7 Result Comment: Slight Hemolysis, Result may be falsely increased. LAB L500.32949 98-107 MMOL/L Normal CL 105 LAB L500.32468 21-32 MMOL/L Normal CO2 27 LAB L500.06330 5-16 MMOL/L Normal AGAP 8 LAB L500.91015 70-100 MG/DL High GLU 172 Result Comment: 70-100- Normal Fasting; 100-125 Impaired Fasting; greater than 126 on more than one result- Diabetes. ADA guidelines. Results may be falsely elevated after the administration of Sulfapyridine. Results may be falsely depressed after the administration of Sulfasalazine. LAB L500.45561 7-26 MG/DL Normal BUN 13 LAB L500.95308 0.670-1.170 MG/DL Normal CREAT 0.698 Result Comment: Patients receiving either N-Acetylcysteine (NAC) or Metamizole prior to venipuncture, may have falsely depressed results. LAB L500.59122 15-24 Normal BUN/CREA 19 LAB L500.90276 8.5-10.1 MG/DL Normal CALCIUM TOTAL 8.7 Performed By: #### L500.48095, L500.36929 #### [facility] [address] [place] [address] GFR EST Collected: 04/19/2018 Status: F Source: [facility] 3:28 AM [facility] REPOSITORY Order Comment: [place]: TYPE CODE TESTS RESULT OUT OF RANGE REFERENCE UNITS LAB L500.50835 ML/MIN Normal IF non-AFR Greater than AMER 60 LAB L500.01010 ML/MIN Normal IF Greater than AMER 60 Performed By: #### L500.36520, L500.23229 #### [facility] [address] [place] [address] EKG Observed: 04/19/2018 Status: UNK Source: [facility] 3:10 AM [facility] REPOSITORY Procedure Date and Time: 04/19/18312 Test Reason : STAT Blood Pressure : / mmHG Vent. Rate : 112 BPM Atrial Rate : 112 BPM P-R Int : 112 ms QRS Dur : 096 ms QT Int : 336 ms P-R-T Axes : 080 089 071 degrees QTc Int : 458 ms Sinus tachycardia Non-specific ST abnormality Abnormal ECG When compared with ECG of 13-APR-2018 17:23, No significant change was found Confirmed by CHANO DUVALL A. ([id number]) on 04/19/2018 12:11:03 PM Referred By: [facility] Confirmed By:Flaco DUVALL M.D.FACC [place] DDandT: 04/19/18312 TDandT: [facility] PATIENT NAME: MARISAOLIVER [facility] [address] MEDICAL REC #: [id number] [place] [address] ADMIT DATE: DISCHARGE DATE: 04/19/18 ATTENDING PHY: Sandra John MD ELECTROCARDIOGRAM REPORT CLB cc: [facility] PATIENT NAME: OLIVER CUNNINGH[address] MEDICAL REC #: [id number] [place] [address] ADMIT DATE: DISCHARGE DATE: 04/19/18 ATTENDING PHY: Sandra John MD ELECTROCARDIOGRAM REPORT CBC Collected: 04/17/2018 Status: F Source: [facility] 7:31 AM [facility] REPOSITORY TYPE CODE TESTS RESULT OUT OF REFERENCE UNITS RANGE LAB WBC(LOINC) 4.50-10.80 10 3/mcL WBC 8.50 LAB RBCCT(LOINC 4.50-6.00 10 6/mcL ) Low RBC 4.40 LAB HGB(LOINC) 13.0-17.5 G/dL Hgb 14.4 LAB HCT(LOINC) 40.0-52.0 % Hct 42.9 LAB MCV(LOINC) 81.0-100.0 fL MCV 97.5 LAB MCH(LOINC) 27.0-33.0 pg MCH 32.7 LAB MCHC(LOINC) 32.0-36.0 G/dL MCHC 33.5 LAB RDW(LOINC) 11.5-15.5 % RDW 13.5 LAB PLT(LOINC) 150-450 10 3/mcL Platelet 245 LAB MPV(LOINC) 6.4-10.5 fL MPV 6.4 Performed By: #### CBC, ADIFF, ANEU, LIP, TROPI, CMP, PBNP, GFR #### [facility] [address] [place] [address] .AUTO DIFF Collected: 04/17/2018 Status: F Source: [facility] 7:31 AM [facility] REPOSITORY TYPE CODE TESTS RESULT OUT OF REFERENCE UNITS RANGE LAB PORSHA(LOINC) 50.0-75.0 % Neutrophil % 66.8 LAB LYM(LOINC) 20.0-40.0 % Lymphocyte % 22.4 LAB MON(LOINC) 2.0-13.0 % Monocyte % 8.5 LAB EO(LOINC) 0.0-6.0 % Eosinophil % 1.5 LAB BAS(LOINC) 0.0-2.5 % Basophil % 0.8 LAB ABLYM(LOIN 0.90-4.32 10 3/mcL C) Lymphocyte, 1.90 Absolute LAB NADIR(LOINC 0.09-1.40 10 3/mcL ) Monocyte, 0.70 Absolute LAB AEOS(LOINC 0.00-0.65 10 3/mcL ) Eosinophil, 0.10 Absolute LAB ABAS(LOINC 0.00-0.27 10 3/mcL ) Basophil, 0.10 Absolute Performed By: #### CBC, ADIFF, ANEU, LIP, TROPI, CMP, PBNP, GFR #### [place] [address] .NEUABS Collected: 04/17/2018 Status: F Source: [facility] 7:31 AM [facility] REPOSITORY TYPE CODE TESTS RESULT OUT OF REFERENCE UNITS RANGE LAB ANEU(LOINC) 2.25-8.10 10 3/mcL Neutrophil, 5.70 Absolute Performed By: #### CBC, ADIFF, ANEU, LIP, TROPI, CMP, PBNP, GFR #### [place] [address] LIP Collected: 04/17/2018 Status: F Source: [facility] 7:31 AM [facility] REPOSITORY TYPE CODE TESTS RESULT OUT OF REFERENCE UNITS RANGE LAB LIP(LOINC) 73-393 U/L Lipase Level 193 Performed By: #### CBC, ADIFF, ANEU, LIP, TROPI, CMP, PBNP, GFR #### [place] [address] TROPI Collected: 04/17/2018 Status: F Source: [facility] 7:31 AM [facility] REPOSITORY TYPE CODE TESTS RESULT OUT OF REFERENCE UNITS RANGE LAB TROPI(LOINC 0.000-0.040 ng/mL ) Troponin I <0.015 Result Comment: Troponin I reference ranges (12/14/13): 0.00-0.040 ng/mL Negative and non-diagnostic. >0.040 ng/mL Consistent with cardiac damage, increased clinical risk and possibility of myocardial infarction. Serial measurements, a rise & fall in test results, clinical history, appropriate symptoms and/or ECG changes may help assess possibility of MA. *Other non-acute coronary syndrome conditions such as CHF, myocarditis, pulmonary emboli, sepsis and cardiac surgery could result in myocardial damage and increased troponin levels. Performed By: #### CBC, ADIFF, ANEU, LIP, TROPI, CMP, PBNP, GFR #### [address] [address] CMP Collected: 04/17/2018 Status: F Source: [facility] 7:31 AM [facility]POS[facility] TYPE CODE TESTS RESULT OUT OF REFERENCE UNITS RANGE LAB GLU(LOINC) 70-110 mg/dL Glucose High Level 130 LAB NA(LOINC) 136-145 mEq/L Sodium Level 140 LAB K(LOINC) 3.5-5.0 mEq/L Potassium Level 3.8 LAB CL(LOINC) 98-110 mEq/L Chloride 103 LAB CO2(LOINC) 22-32 mEq/L CO2 27 LAB EBAL(LOINC 4.0-15.0 mEq/L ) Electrolyte Balance 10.0 LAB BUN(LOINC) 8.0-22.0 mg/dL BUN 10.0 LAB CRE(LOINC) 0.60-1.40 mg/dL Creatinine Lvl (s) 0.66 LAB BC(LOINC) 10.0-22.0 ratio BUN/Creatinine 15.2 Ratio LAB CA(LOINC) 8.4-10.1 mg/dL Calcium Lvl 8.7 LAB PROT(LOINC 6.0-8.5 G/dL ) Total Protein 6.8 LAB ALB(LOINC) 3.2-4.8 G/dL Albumin Level 3.6 LAB GLB(LOINC) 1.5-3.8 G/dL Globulin 3.2 LAB AG(LOINC) 0.9-1.6 ratio A/G Ratio 1.1 LAB BILT(LOINC 0.2-1.2 mg/dL ) Bili Total 0.2 LAB AP(LOINC) 38-126 U/L Alk Phos 69 LAB AST(LOINC) 8-34 U/L AST/SGOT 14 LAB ALT(LOINC) 12-55 U/L ALT/SGPT 24 Performed By: #### CBC, ADIFF, ANEU, LIP, TROPI, CMP, PBNP, GFR #### [address] [address] PBNP Collected: 04/17/2018 Status: F Source: [facility] 7:31 AM [facility] REPOSITORY TYPE CODE TESTS RESULT OUT OF REFERENCE UNITS RANGE LAB PBNP(LOINC) 0-900 pg/mL N-Terminal 32 proBNP Result Comment: NT-proBNP results of less than 300 pg/mL effectively rules out acute congestive heart failure with 99% negative predictive value. Performed By: #### CBC, ADIFF, ANEU, LIP, TROPI, CMP, PBNP, GFR #### [facility] [address] [place] [address] .GFR Collected: 04/17/2018 Status: F Source: [facility] 7:31 AM [facility] REPOSITORY TYPE CODE TESTS RESULT OUT OF REFERENCE UNITS RANGE LAB GFRAA(LOINC ml/min/1.73 ) sqm GFR >60 [place] Result Comment: GFR Population mean for , Non- Americans Ages 20-29 = 116 mL/min/1.73 sq.m. Ages 30-39 = 107 mL/min/1.73 sq.m. Ages 40-49 = 99 mL/min/1.73 sq.m. Ages 50-59 = 93 mL/min/1.73 sq.m. Ages 60-69 = 85 mL/min/1.73 sq.m. Ages 70+ = 75 mL/min/1.73 sq.m. Chronic Kidney Disease: Less than 60 mL/min/1.73 square meters End Stage Renal Disease: Less than 15 mL/min/1.73 square meters LAB GFRNO(LOINC) ml/min/1.73sqm GFR Non- >60 Result Comment: GFR Population mean for , Non- Americans Ages 20-29 = 116 mL/min/1.73 sq.m. Ages 30-39 = 107 mL/min/1.73 sq.m. Ages 40-49 = 99 mL/min/1.73 sq.m. Ages 50-59 = 93 mL/min/1.73 sq.m. Ages 60-69 = 85 mL/min/1.73 sq.m. Ages 70+ = 75 mL/min/1.73 sq.m. Chronic Kidney Disease: Less than 60 mL/min/1.73 square meters End Stage Renal Disease: Less than 15 mL/min/1.73 square meters Performed By: #### CBC, ADIFF, ANEU, LIP, TROPI, CMP, PBNP, GFR #### [facility] [address] [place] [address] XR CHEST 1 VIEW Observed: 04/17/2018 Status: F Source: [facility] 7:19 AM [facility] REPOSITORY ORIGINAL XR CHEST 1 VIEW CLINICAL STATEMENT: Chest pain COMPARISON: [09/30/2017 FINDINGS: The heart and mediastinal structures are normal . The lungs are clear and the pulmonary vasculature is normal. There are no pleural effusions. The bones are unremarkable. IMPRESSION: No acute thoracic process Interpreted By: Ger Nails MD Preliminary Report By: Ger Nails MD Electronically Signed By: Ger Nails MD Dictated Date: 04/17/2018 7:44:12 AM Prelim Date: 04/17/2018 7:44:12 AM Sign Date: 04/17/2018 7:44:25 AM RISK SCREEN - ADULT Observed: 04/15/2018 Status: UNK [facility] Preferred Language: Preferred Language: Preferred Language for Discussing Health Care (patient/designee)Cypriot Advanced Directives: Advance Directive Medicalno Advance Directive Information Givenpatient/family declined Family Violence Adult: Abuse Screen: Are you or have you been threatened or abused physically, emotionally, or sexually by anyoneno Suicide / Depression: Suicide/Depression Screen: During the past month, have you often been bothered by feeling down, depressed or hopelessyes During the past month, have you often had little interest or pleasure in doing thingsno Have you had any thoughts of harming yourselfno (1) Have you had any thoughts of harming anyone elseno (1) Learning Assessment (Patient): Learning Assessment (Patient): Patient is Able to be Assessed for Learningyes Factors Influencing Readiness to Learnacuteness of illness Factors that Impact Ability to Learnnone Devices/Methods Used to Communicatenone Learning Preferencesaudio Cultural Considerationsnone Developmental Considerationsnone Jainism Considerationsnone Learning Assessment (Other Learner): Learning Assessment (Other Learner): Other learner availableno Fall Risk Adult: Falls Risk: Altered Mobilitynone Change in Mental Statusno Relevant Medical History / Diagnosisnone Fall Historynone Altered Eliminationno Medications that Might Alter: equilibrium, cognitive judgement or severity of injurynone Sensory Deficitno UNABLE or UNWILLING to Follow Directionsno Patient Identified as a Falls Riskno Provide Rationale not identified as Falls Riskno risk factors identified Pressure Injury: Pressure Injury Present on Admissionno Respiratory / Cough /TB: ED / TB / Cough / Respiratory Screen: Do you have a coughno Smoking/Social History (Required age 13 or older): Smoking Status: current every day smoker Alcohol Use: occasionally Drug Use: denies Admission Risk Screen: Significant IndicatorsComplete CAGE: CAGE: Is this an injured patient at a Trauma Center ([facility] / [facility]): no Electronic Signatures: Shyann Blevins (RN) (Signed 15-Apr-2018 14:49) Authored: Preferred Language, Advanced Directives, Family Violence Adult, Suicide / Depression, Learning Assessment (Patient), Learning Assessment (Other Learner), Fall Risk Adult, Pressure Injury, Respiratory / Cough /TB, Smoking/Social History (Required age 13 or older), CAGE Last Updated: 15-Apr-2018 14:49 by Shyann Blevins (KIMBERLEE) References: 1. Data Referenced From Triage - ED 04/15/2018 11:[address] ANGIO CHEST Observed: 04/15/2018 Status: F Source: [place] FOR PE 2:21 PM HOSPITALS REPOSITORY Patient Name: OLIVER CUNNINGHAM STUDY: TH CT ANGIO CHEST FOR PE; 04/15/2018 2:21 pm INDICATION: Signs/Symptoms: syncope, tachy, Lie Flat: Yes. COMPARISON: None. ACCESSION NUMBER(S): [id number] ORDERING CLINICIAN: AMADA CHESTER TECHNIQUE: Helical data acquisition of the chest was obtained contrast volume:without IV contrast material/Optiray 350/Isovue 370. Images were reformatted in coronal and sagittal planes. Axial and coronal MIP images were created and reviewed. FINDINGS: POTENTIAL LIMITATIONS OF THE STUDY:None HEART AND VESSELS: No discrete filling defects within the main pulmonary artery or its branches. Main pulmonary artery and its branches are normal in caliber. The thoracic aorta is of normal course and caliber without vascular calcifications. No coronary artery calcifications are seen.The study is not optimized for evaluation of coronary arteries. The cardiac chambers are not enlarged. No evidence of pericardial effusion. MEDIASTINUM AND ZACHARY, LOWER NECK AND AXILLA: The visualized thyroid gland is within normal limits. No evidence of thoracic lymphadenopathy by CT criteria. Esophagus appears within normal limits as seen. LUNGS AND AIRWAYS: Dependent soft tissue along the posterior wall of the trachea most consistent with dependent mucus. There is extensive emphysematous changes. There is a 6 mm left upper lobe lung nodule. There is a 2 mm left lower lobe lung nodule. UPPER ABDOMEN: Patient is status post cholecystectomy. CHEST WALL AND OSSEOUS STRUCTURES: There are no suspicious osseous lesions. Multilevel degenerative changes are present IMPRESSION: 1. No evidence of pulmonary embolism. 2. Severe emphysematous changes and a left upper lobe 6 mm nodule. While this probably inflammatory/benign in nature a six-month low-dose chest CT follow-up is recommended Electronically signed by: Magnolia HUERTAS MD CHEST 1 VIEW Observed: 04/15/2018 Status: F Source: [place] 12:02 PM HOSPITALS REPOSITORY Patient Name: OLIVER CUNNINGHAM STUDY: CHEST 1 VIEW; 04/15/2018 12:02 pm INDICATION: Signs/Symptoms: syncope. COMPARISON: June 25, 2017 ACCESSION NUMBER(S): [id number] ORDERING CLINICIAN: AMADA CHESTER FINDINGS: No consolidation, effusion, edema, or pneumothorax. Heart size within normal limits. IMPRESSION: No evidence of acute intrathoracic abnormality. Electronically signed by: KATY SOLIZ MD CBC AND DIFFERENTIAL Collected: 04/15/2018 Status: F Source: [place] 11:56 AM HOSPITALS REPOSITORY TYPE CODE TESTS RESULT OUT OF REFERENCE UNITS RANGE LAB WBCR(LOINC 4.4 - 11.3 x10E9/L ) WBC 6.7 LAB NRBC(LOINC 0.0-0.0 /100 WBC ) NUCLEATED RBC 0.0 LAB RBCCT(LOIN 4.50 - 5.90 x10E12/L C) Low RBC 4.44 LAB HGB(LOINC) 13.5 - 17.5 g/dL HGB 14.7 LAB HCT(LOINC) 41.0 - 52.0 % Low HCT 40.7 LAB MCV(LOINC) 80 - 100 fL MCV 92 LAB MCHC2(LOIN 32.0 - 36.0 g/dL C) MCHC High 36.1 LAB PLTCT(LOIN 150 - 450 x10E9/L C) PLT 267 LAB RDWCV(LOIN 11.5 - 14.5 % C) RDW-CV 12.3 LAB NEUT(LOINC 40.0 - 80.0 % ) % NEUTROPHIL 66.6 LAB IG(LOINC) 0.0 - 0.9 % % AUTOMATED 0.3 IMMATURE GRAN Result Comment: Percent differential counts (%) should be interpreted in the context of the absolute cell counts (cells/L). LAB LYMPH(LOINC) 13.0 - 44.0 % % LYMPHOCYTE 22.3 LAB MONO(LOINC) 2.0 - 10.0 % % MONOCYTE 9.5 LAB EOS(LOINC) 0.0 - 6.0 % % EOSINOPHIL 0.7 LAB BASO(LOINC) 0.0 - 2.0 % % BASOPHIL 0.6 LAB #NEUT(LOINC) 1.20 - 7.70 x10E9/L NEUTROPHIL 4.49 LAB #LYMP(LOINC) 1.20 - 4.80 x10E9/L LYMPHOCYTE 1.50 LAB #MONO(LOINC) 0.10 - 1.00 x10E9/L MONOCYTE 0.64 LAB #EOS(LOINC) 0.00 - 0.70 x10E9/L EOSINOPHIL 0.05 LAB #BASO(LOINC) 0.00 - 0.10 x10E9/L BASOPHIL 0.04 Performed By: #### CBCDF #### [facility]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 rounded with active bs. 04/13/2018 18:35 CMM TREATMENT 04/13/2018 19:21 Admit/Discharge - Ambulated with steady gait home 04/13/2018 19:21 CMM 04/13/2018 19:21 Admit/Discharge - Discharge infomation reviewed with pt 04/13/2018 19:21 CMM MEDICATIONS IV I AND O VITALS VS-ROUTINE Time: 04/13/2018 17:46 B/P: 143/72 - Left Upper Arm - Sitting - Machine [facility] PATIENT NAME: OLIVER CUNNINGHAM [address] MEDICAL REC #: [id number] [place] [address] EMERGENCY DEPARTMENT REPORT EMERGENCY DEPARTMENT PHYSICIAN Pulse: 102 - Resp: 15 Sa02: 97 Room Air Temp: 98.00 F - Oral 04/13/2018 17:47 GOGO VS-Pain Time: 04/13/2018 17:46 Pain Level: 10 04/13/2018 17:47 GOGO VS-GCS Time: 04/13/2018 17:46 04/13/2018 17:47 GOGO VS-HT/WT Time: 04/13/2018 17:46 Ht: 71 in. Stated Weight: 187 lbs Stated 04/13/2018 17:47 GOGO VS-Visual Time: 04/13/2018 17:46 04/13/2018 17:47 GOGO VS-FHT Time: 04/13/2018 17:46 04/13/2018 17:47 GOGO VS-Notes Time: 04/13/2018 17:46 map 100 04/13/2018 17:47 GOGO ORDERS Discharge patient 04/13/2018 18:51 N/A Ordered: 04/13/2018 18:45 By . Other Reviewed: 04/13/2018 18:51 By . Other AWNING CRAFTSMAN ORDER: ALCE 04/13/2018 18:45 None Ordered: 04/13/2018 18:45 Completed Time: 04/13/2018 18:45 Results Time: 04/13/2018 18:45 Toradol (IM)*(30mg/ml) DOSE: 15 mg IM 04/13/2018 19:21 N/A Ordered: 04/13/2018 18:41 By Amada Johnson Completed Time: 04/13/2018 19:20 By Amada Johnson Tylenol (PO)*(325mg) DOSE: 975 mg PO 04/13/2018 19:21 N/A Ordered: 04/13/2018 18:41 By Amada Johnson Completed Time: 04/13/2018 19:20 By Amada Johnson Lab: Add On Test (excluding POC tests) 04/13/2018 18:30 N/A Ordered: 04/13/2018 18:23 By Amada Johnson Noted Time: 04/13/2018 18:30 CMM Question: Test to be added: Answer: EtOH [facility] PATIENT NAME: OLIVER CUNNINGHAM [address] MEDICAL REC #: [id number] [place] [address] EMERGENCY DEPARTMENT REPORT EMERGENCY DEPARTMENT PHYSICIAN AWNING CRAFTSMAN ORDER: GFRP 04/13/2018 17:53 None Ordered: 04/13/2018 17:53 Completed Time: 04/13/2018 17:53 Results Time: 04/13/2018 18:45 AWNING CRAFTSMAN ORDER: POCTROP 04/13/2018 17:46 None Ordered: 04/13/2018 17:46 Completed Time: 04/13/2018 17:46 Results Time: 04/13/2018 17:46 BMP 04/13/2018 17:53 N/A Ordered: 04/13/2018 17:22 By Protocol Completed Time: 04/13/2018 17:53 By Protocol Noted Time: 04/13/2018 17:41 ATV Results Time: 04/13/2018 18:45 CBC with diff 04/13/2018 17:49 N/A Ordered: 04/13/2018 17:22 By Protocol Completed Time: 04/13/2018 17:49 By Protocol Noted Time: 04/13/2018 17:41 ATV Results Time: 04/13/2018 17:49 EKG and most recent EKG 04/13/2018 17:46 N/A Ordered: 04/13/2018 17:22 By Protocol Completed Time: 04/13/2018 17:28 By Protocol Noted Time: 04/13/2018 17:23 GOGO POC troponin 04/13/2018 17:41 N/A Ordered: 04/13/2018 17:22 By Protocol Noted Time: 04/13/2018 17:41 ATV DISCHARGE Diagnosis: Acute chest pain, nonspecific, 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 MEDICAL REC #: [id number] [place] [address] EMERGENCY DEPARTMENT REPORT EMERGENCY DEPARTMENT PHYSICIAN after emergency evaluation/treatment Category: *NOT APPLICABLE Referral: 04/13/2018 18:45 Admit Physician: . Other PRESCRIPTIONS CHARGES SIGNATURE Amada Johnson MD [facility] ANA LENTZ RN AT [facility] CMM [facility] PATIENT NAME: OLIVER CUNNINGHAM [address] MEDICAL REC #: [id number] [place] [address] EMERGENCY DEPARTMENT REPORT EMERGENCY DEPARTMENT PHYSICIAN EKG Observed: 04/13/2018 Status: UNK Source: [facility] 6:37 PM [facility] Procedure Date and Time: 04/13/18 1723 Test Reason : STAT Blood Pressure : / mmHG Vent. Rate : 089 BPM Atrial Rate : 089 BPM P-R Int : 134 ms QRS Dur : 100 ms QT Int : 366 ms P-R-T Axes : 075 084 058 degrees QTc Int : 445 ms Normal sinus rhythm Normal ECG When compared with ECG of 07-APR-2018 07:56, No significant change was found Confirmed by CHANO DUVALL A. ([id number]) on 04/14/2018 2:50:46 PM Referred By: Emergency Stk Cnt Confirmed By:Flaco DUVALL M.D.FACC M.D. DDandT: 04/13/18 1723 TDandT: [facility] PATIENT NAME: OLIVER CUNNINGHAM [facility] [address] MEDICAL REC #: [id number] [place] [address] ADMIT DATE: DISCHARGE DATE: 04/13/18 ATTENDING PHY: Amada Johnson MD ELECTROCARDIOGRAM REPORT CLB cc: [facility] PATIENT NAME: OLIVER CUNNINGHAM [address] MEDICAL REC #: [id number] [place] [address] ADMIT DATE: DISCHARGE DATE: 04/13/18 ATTENDING PHY: Amada Johnson MD ELECTROCARDIOGRAM REPORT TROPONIN I POC Collected: 04/13/2018 Status: F Source: [facility] 5:31 PM [facility] REPOSITORY TYPE CODE TESTS RESULT OUT OF RANGE REFERENCE UNITS LAB L550.73945 0.0-0.06 NG/ML Normal TROPONIN I POC 0.00 Result Comment: 0.0 - 0.06 NG/ML - NON- DIAGNOSTIC (REFERENCE RANGE) 0.07 - 0.59 NG/ML - INDETERMINATE Greater than or equal to 0.6 NG/ML - INDICATIVE OF MYOCARDIAL DAMAGE CBC W/DIFF Collected: 04/13/2018 Status: F Source: [facility] 5:28 PM [facility] REPOSITORY Order Comment: [place]: TYPE CODE TESTS RESULT OUT OF RANGE REFERENCE UNITS LAB L200.64800 4.5-11.0 K/CUMM WBC Normal 9.4 LAB L200.05645 4.50-6.00 M/CU MM RBC Normal 4.65 LAB L200.48317 13.5-17.5 G/DL HGB Normal 15.3 LAB L200.12768 41.0-53.0 % HCT Normal 43.8 LAB L200.29822 80.0-99.0 fl MCV Normal 94.2 LAB L200.96319 32.0-36.0 GM/DL MCHC Normal 34.9 LAB L200.61453 11-14.5 RDW Normal 12.5 LAB L200.40254 9.4-12.4 Low MPV 8.5 LAB L200.27624 150-450 K/CU MM PLT Normal 273 LAB L200.87097 45-75 % NEUTROPHILS Normal % 58.4 LAB L200.43262 Less than 2 % IMMATURE Normal GRAN % 0.2 LAB L200.88790 20-40 % LYMPH % Normal 29.8 LAB L200.20425 2-10 % MONOCYTE % Normal 9.7 LAB L200.60612 0-5 % EOSINOPHIL Normal % 1.3 LAB L200.17026 0-2 % BASOPHIL % Normal 0.6 LAB L200.35512 2.0-8.3 K/CU MM NEUTROPHIL Normal ABS 5.50 LAB L200.39459 Less than 2 K/CU MM IMMATR GRAN Normal ABS 0.00 LAB L200.82358 0.9-4.4 K/CU MM LYMPH ABS Normal 2.80 LAB L200.02725 0.1-1.1 K/CU MM MONO ABS Normal 0.90 LAB L200.50525 0-0.5 K/CU MM EOS ABS Normal 0.10 LAB L200.83937 0-0.2 K/CU MM BASO ABS Normal 0.10 LAB L200.36580 Less than 1 % NRBC Normal 0.0 Performed By: #### L200.51371 #### [facility] [address] [place] [address] BMP Collected: 04/13/2018 Status: F Source: [facility] 5:28 PM [facility] REPOSITORY Order Comment: [place]: TYPE CODE TESTS RESULT OUT OF RANGE REFERENCE UNITS LAB L500.93085 136-145 MMOL/L Low NA 131 LAB L500.05957 3.5-5.1 MMOL/L Normal K 3.5 LAB L500.18149 98-107 MMOL/L Low CL 95 LAB L500.38640 21-32 MMOL/L Normal CO2 28 LAB L500.31044 5-16 MMOL/L Normal AGAP 8 LAB L500.14202 70-100 MG/DL Normal GLU 96 Result Comment: 70-100- Normal Fasting; 100-125 Impaired Fasting; greater than 126 on more than one result- Diabetes. ADA guidelines. Results may be falsely elevated after the administration of Sulfapyridine. Results may be falsely depressed after the administration of Sulfasalazine. LAB L500.91735 7-26 MG/DL Low BUN 4 LAB L500.99890 0.670-1.170 MG/DL Low CREAT 0.610 Result Comment: Patients receiving either N-Acetylcysteine (NAC) or Metamizole prior to venipuncture, may have falsely depressed results. LAB L500.53836 15-24 Low BUN/CREA 7 LAB L500.21503 8.5-10.1 MG/DL Normal CALCIUM TOTAL 8.7 Performed By: #### L500.20555, L500.94793, L530.34344 #### [facility] [place] [address] GFR EST Collected: 04/13/2018 Status: F Source: [facility] 5:28 PM [facility] REPOSITORY Order Comment: [place]: M TYPE CODE TESTS RESULT OUT OF RANGE REFERENCE UNITS LAB L500.04816 ML/MIN Normal IF non-AFR Greater than AMER 60 LAB L500.16337 ML/MIN Normal IF Greater than AMER 60 Performed By: #### L500.13809, L500.19578, L530.36397 #### [facility] [address] [place] [address] ALC ETHANOL Collected: 04/13/2018 Status: F Source: [facility] 5:28 PM [facility] REPOSITORY Order Comment: [place]: M TYPE CODE TESTS RESULT OUT OF REFERENCE UNITS RANGE LAB L530.38205 LESS THN 0.01 GM/DL High ALC ETHANOL 0.05 Performed By: #### L500.86628, L500.82854, L530.31829 #### [facility] [address] [place] [address] ER Observed: 04/07/2018 Status: UNK Source: [facility] 10:11 AM [facility] REPOSITORY This is a preliminary report only, as the practitioner review and authentication has not occurred. ER Observed: 04/07/2018 Status: UNK Source: [facility] 10:11 AM [facility] REPOSITORY PHYSICIAN ASSESSMENT RECORDS : FlexChartData Event Time: 04/07/2018 08:00 Status: Signed [facility] Oliver Cunningham [[id number]] Attending Physician 57 / M / 1960 Chart (V2b) Chart created at 04/07/2018 07:53 by Juan Carlos Segura Chart closed at 04/07/2018 09:43 Entry in Emergency Department at 04/07/2018 06:52, departure at 04/07/2018 10:11 Patient Name: Oliver Cunningham Record Number: [id number] Date: 04/07/2018 07:53 Entered Department at: 04/07/2018 06:52 Patient Seen at: 04/07/2018 07:40 Historian: Patient PCP: MERLIN/MARCO ANTONIO Chief Complaint:LOW ABD/PELVIC PAIN RADIATING UPWARDS TO CHEST, NECK. DIFFICULTY BREATHING. Triage Note reviewed and Initial Vital Signs reviewed. Temperature: 97.5 F (36.4 C). Pulse: 96. Respiratory Rate: 17. Blood-pressure: 171/92. Oxygen Saturation: 100%. History of Present Illness: Patient presents with chronic abdominal pain and chest pain. He states he has a history of MS. He was put on a medication called abagio. He was only on this for several months but he had a hernia surgery about 2 years ago and after this he started having pain going up his abdomen. He ended up having several other hernias repaired and finally the medication was stopped. [facility] PATIENT NAME: OLIVER CUNNINGHAM [address] MEDICAL REC #: [id number] [place] [address] EMERGENCY DEPARTMENT REPORT EMERGENCY DEPARTMENT PHYSICIAN Presumably he thinks his pain was due to to this medication and states that it takes years to get out of his system. He is not on anything new but states that he is now had chronic abdominal pain that over the last 2 years has slowly progressed up and now goes into his chest and even head. He states the pain is not different today or even in the last several weeks or months but it just continues to get worse every day. It is a very subtle change and he states that he was just frustrated with it overnight and so decided to come in. Denies nausea or vomiting. Denies red or black stool. He is passing gas. Denies fever chills. He has the pain coming up from his abdomen into his chest but denies chest pain otherwise or shortness of breath. Denies cough. Denies fever chills. Denies vision changes. Denies weakness numbness or tingling. Review of Systems. All other systems reviewed and negative.. Past History, Medications, Allergies, Social History and Family History reviewed in nurses note. Medications: Reviewed RN Note. Allergies: Reviewed RN Note PCN(Rash), mobic(Rash), lyrica(agitation of nerves), cymbalta(palpitations), abaugio(plugs arteries), copaxone(Rash), hydrochlorothiazide(syncope), Reglan(chest pain), trulance(Unknown), Magnesium Sulfate(BURNING), WELCHOL(ABDOMINAL PAIN) Social History: Reviewed RN Note. Family History: Reviewed RN Note Physical Examination: General: Alert HEENT: Normal ENT inspection. Neck: No Meningismus and Supple Respiratory: No Resp Distress and Normal Breath Sounds Cardio-Vascular: No murmur and RRR Abdomen: Soft; Mildly tender diffusely, no hernias appreciated, no masses, no rebound tenderness or guarding no distention Back: No CVA tenderness Extremity: No Calf Tenderness, No edema and Normal Equal pulses Neurological: Alert, Oriented X3 and No Gross Weakness [facility] PATIENT NAME: OLIVER CUNNINGHAM [address] [facility] [facility] [address] MEDICAL REC #: [id number] [place] [address] EMERGENCY DEPARTMENT REPORT EMERGENCY DEPARTMENT PHYSICIAN Skin: Warm and Dry Psychological: Mood/Affect Normal Cardiogram: Interpreted by me. Rate: 90 bpm. Rhythm Sinus RhythmAxis NormalIntervals NormalQRS NormalST/T Normal Comparison: Unchanged Medical Decision Making Patients pain seems to be chronic in nature. I did get a CT of the abdomen chest x-ray and blood work was all unremarkable as well. He is given Tylenol for pain here. He has chronic symptoms I do not feel that narcotics of he needs to follow-up with his primary care doctor for further evaluation of this and he has an appointment with his surgeon in 3 days. He is instructed to return if he has new or worsening symptoms or anything acute and he is agreeable with this. He is discharged in stable condition. Additional Information: Discussed Results, Diagnosis and Follow-Up with Patient. Clinical Impression: 1. Chronic abdominal/chest pain Disposition: Discharged . Condition: Fair MSE completed. I was the primary ED attending.. : Discharge Report Event Time: 04/07/2018 09:44 ===DISCHARGE REPORT=== : FlexChartData Event Time: 04/07/2018 08:00 : Discharge Report Event Time: 04/07/2018 09:44 Status: Draft [facility] PATIENT NAME: OLIVER CUNNINGHAM [address] [facility] [address] [facility] [address] MEDICAL REC #: [id number] [place] [address] EMERGENCY DEPARTMENT REPORT EMERGENCY DEPARTMENT PHYSICIAN Reasons to Return to the ER: You must return to the ER for any new, worsening or changing symptoms, or if you feel more ill or sick in any way. This is the most important thing to remember. Follow-up: The care you received in the ER was given on an emergency basis only, and it is often not possible to completely treat or diagnose a problem in a single ER visit. You must see your follow-up doctor for a recheck within a week unless you receive instructions with a different timeframe for follow-up. Please follow all your discharge instructions. Medications: Unless the ER doctor tells you differently, you should take all your regular medications and any new medications prescribed today. Because it is not possible for the ER doctor to review all of your medication side effects or interactions, you must review possible side effects and interactions with your pharmacist when you get your prescriptions filled. EKG and Radiology Results: A traveling clerk or radiologist will review any EKG or radiology results provided by the ER doctor. We will contact you if the results in the final EKG or radiology reports require a change in treatment. Culture Results: Cultures may have been ordered during your ER visit. We will contact you if the culture results require a change in treatment. Referrals: Most referrals to specialists come from the on-call list You should make your regular doctor aware of any referrals before you schedule the appointment so that they are aware and can make suggestions [facility] PATIENT NAME: OLIVER CUNNINGHAM [address] [facility] [address] [facility] [address] MEDICAL REC #: [id number] [place] [address] EMERGENCY DEPARTMENT REPORT EMERGENCY DEPARTMENT PHYSICIAN DIAGNOSIS: Chronic abdominal/chest pain INSTRUCTIONS: Her symptoms are chronic in nature. If you have any new or worsening symptoms, please return, otherwise follow-up with your surgeon this week as well as your primary care doctor for further evaluation. REFERRAL Addison Bernard MD (Primary Care), , fax: Please call the above number to schedule a follow-up appointment. Katy Zheng MD (General Surgery / Trauma), , fax: Please call the above number to schedule a follow-up appointment. 2-3 days MEDICATIONS We have given you these prescriptions that you must fill and start taking: None COMMENTS: Patient Satisfaction: Within the first few days after your visit, you will receive an email and/or phone call regarding your visit. We value your feedback, and would appreciate it if you would take the time to complete this short survey. If you receive a call, it will be between 6p and 8p. My signature below indicates that I have received and understand the oral instructions regarding my [facility] PATIENT NAME: OLIVER CUNNINGHAM [address] MEDICAL REC #: [id number] [place] [address] EMERGENCY DEPARTMENT REPORT EMERGENCY DEPARTMENT PHYSICIAN medical problem. I also acknowledge receipt of this written instruction sheet including a list of major tests and procedures ordered during my visit. I will arrange for follow-up care as indicated by these instructions and referrals. This signed original will be kept in my medical record. Your signature below indicates consent for Case Management to contact communityhealthcare providers in an effort to meet your ongoing healthcare needs. This will allow forcontinuity of care once you leave the Emergency Department. This exchange of informationwill include, but not be limited to, disclosure of your patient information and possible release of records. 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 DIFFICULTY BREATHING. Arrival Date: 04/07/2018 06:52 Triage Date: 04/07/2018 06:52 Mode of Arrival: *Privately Owned Vehicle [facility] [facility]IENT NAME: OLIVER CUNNINGHAM [address] [facility] [address] [facility] [address] [place] MEDICAL REC #: [id number] [place] [address] EMERGENCY DEPARTMENT REPORT EMERGENCY DEPARTMENT PHYSICIAN Transfer From: * Home WC: N Language: Cypriot Transport: Ambulatory/Walk In BED A04 In: 04/07/2018 07:37:17 04/07/2018 07:37:17 SXM A04 (Removed From) Out: 04/07/2018 10:11:28 04/07/2018 10:11:28 [facility] PROVIDERS MD Juan Carlos Segura Provider Contact: 04/07/2018 07:40:00 NETO End: KIMBERLEE VELAZCO Provider Contact: 04/07/2018 08:28:56 CRW End: KIMBERLEE WADDELL Provider Contact: 04/07/2018 09:41:50 CMS End: TRIAGE HISTORY ALLERGIES Allergic To: PCN - Rash 04/07/2018 06:54 RSH Allergic To: mobic - Rash 04/07/2018 06:54 RSH Allergic To: lyrica - agitation of nerves 04/07/2018 06:54 RSH Allergic To: cymbalta - palpitations 04/07/2018 06:54 RSH Allergic To: abaugio - plugs arteries 04/07/2018 [facility] PATIENT NAME: BEATRIZCAMOLIVER [address] [facility] [address] [place] MEDICAL REC #: [id number] [place] [address] EMERGENCY DEPARTMENT REPORT EMERGENCY DEPARTMENT PHYSICIAN 06:54 RSH Allergic To: copaxone - Rash 04/07/2018 06:54 RSH Allergic To: hydrochlorothiazide - syncope 04/07/2018 06:54 RSH Allergic To: Reglan - chest pain 04/07/2018 06:54 RSH Allergic To: trulance - Unknown 04/07/2018 06:54 RSH Allergic To: Magnesium Sulfate - BURNING 04/07/2018 06:54 RSH Allergic To: WELCHOL - ABDOMINAL PAIN 04/07/2018 06:54 RS CURRENT MEDS Name: LORAZEPAM 0.5MG TABLET - PO 04/07/2018 08:44 CRW Freq: 2 X A DAY Name: REMERON 30MG TABLET - PO 04/07/2018 08:44 CRW Freq: DAILY Name: LINZEST 290 MG PO 04/07/2018 08:44 CRW Freq: DAILY Name: TYLENOL PO 04/07/2018 08:44 CRW ILLNESS Illness: Anxiety 04/07/2018 06:54 RS Illness: Emphysema 04/07/2018 06:54 RS Illness: scleraderma 04/07/2018 06:54 RS Illness: multiple sclerosis 04/07/2018 06:54 RS PAST SURGERY HIST Surgery: Hernia Repair 04/07/2018 06:54 RS Surgery: Cholecystectomy 04/07/2018 06:54 RS Surgery: lower back 04/07/2018 06:54 [facility] Surgery: bilateral shoulder 04/07/2018 06:54 [facility] PATIENT NAME: OLIVER CUNNINGHAM [address] [facility] [address] [place] MEDICAL REC #: [id number] [place] [address] EMERGENCY DEPARTMENT REPORT EMERGENCY DEPARTMENT PHYSICIAN Surgery: Tonsillectomy 04/07/2018 06:54 [facility] Surgery: PARTIAL AMPUTATION RIGHT 3RD andamp; 4TH FINGERS 04/07/2018 06:54 [facility] Surgery: Hernia Repair X 2 04/07/2018 06:54 [facility] PAST SOCIAL HIST Social History: Communicates without difficulty 04/07/2018 06:54 [facility] Social History: Lives with family or significant other 04/07/2018 06:54 [facility] Social History: Alcohol - None 04/07/2018 06:54 [facility] Social History: Recreational Drugs - None 04/07/2018 06:54 [facility] Social History: Alcohol - Occasional- 04/07/2018 06:54 [facility] Social History: Smoker-1/2 PPD 04/07/2018 06:54 [facility] Social History: Denies Domestic Violence 04/07/2018 06:54 [facility] Social History: Denies thoughts of self harm. 04/07/2018 06:54 [facility] Social History: Have you traveled in the past month? Where NO 04/07/2018 06:54 [facility] IMMUNIZATIONS Immunization: Pneumonia Vaccine-no 04/07/2018 06:54 [facility] Immunization: Flu Vaccine-no 04/07/2018 06:54 [facility] NURSING ASSESSMENT ASSESSMENT NOTES [facility] PATIENT NAME: OLIVER CUNNINGHAM [address] [facility] [address] [place] MEDICAL REC #: [id number] [place] [address] EMERGENCY DEPARTMENT REPORT EMERGENCY DEPARTMENT PHYSICIAN 04/07/2018 08:29 PT IS ALERT AND ANSWERING QUESTIONS APPROPRIATELY ,BREATHING IS REGULAR AND NONLABORED AT THIS TIME. PT REPORTS THAT TH GRAFFS IN HIS LOWER ABD AREA HAVE BEEN CAUSING HIS VEINS/ARTERIES TO GET HARD. PT REPORTS PAIN IN THE LOWER ABD AREA WHICH HAS BEEN THERE IS NOW GOING UP TO HIS CHEST AND ARMS. PT ASKING THIS RN TO FEEL HIS GROIN VEINS TO SEE THAT THEY ARE HARD. PT DOES NOT APPEAR TO BE IN ANY ACUTE DISTRESS AT THIS TIME. 04/07/2018 08:30 CRW 04/07/2018 08:31 PT REPORTS THE CAUSE OF THE VEINS AND ARTERY HARDENING IS BECAUSE OF A MEDICATION HE WAS ON YEARS AGO IT TAKES YEARS TO GET OUT OF YOUR SYSTEM. 04/07/2018 08:32 CRW TREATMENT 04/07/2018 07:39 Hourly Rounding - Rounding 04/07/2018 07:39 CRW Elimination/Toileting N Pain 10 Position Comfortable Y Safe Environment Y Fall Risk Change N 04/07/2018 07:39 Patient Interaction - Allergy Band on Pt. 04/07/2018 07:39 CRW 04/07/2018 07:39 Patient Interaction - Call light placed within reach. 04/07/2018 07:39 CRW 04/07/2018 07:39 Patient Interaction - Introduce self to Patient. 04/07/2018 07:39 CRW 04/07/2018 07:39 Patient Interaction - Name Band on Pt 04/07/2018 07:39 CRW 04/07/2018 08:30 Patient Interaction - Allergy Band on Pt. 04/07/2018 08:31 CRW 04/07/2018 08:31 Patient Interaction - Call light placed within reach. 04/07/2018 08:31 CRW 04/07/2018 08:31 Patient Interaction - Introduce self [facility] PATIENT NAME: OLIVER CUNNINGHAM [address] [place] MEDICAL REC #: [id number] [place] [address] EMERGENCY DEPARTMENT REPORT EMERGENCY DEPARTMENT PHYSICIAN to Patient. 04/07/2018 08:31 CRW 04/07/2018 08:31 Patient Interaction - Name Band on Pt 04/07/2018 08:31 CRW 04/07/2018 08:32 Primary DOC Guide - A. 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 Fall Risk Assessment (Age andlt;65) 04/07/2018 08:32 CRW History of Falling in last 3 months? No (0) Fall Risk Score 1-2 Points = Low Risk. 3-4 Points = Moderate Risk. 5 or more points = High Risk. 0 Fall Score Greater andgt;= 3? No 04/07/2018 08:32 Primary DOC Guide - D. Psychosocial Assessment 04/07/2018 08:32 CRW Over the Last 2 weeks, how often have you had little interest or pleasure in doing things (1) Several Days Is Psychosocial Assessment Score 3 or more? If score is 3 or more please consult ED Navigator! No Total Psychosocial Assessment Score 2 Over the last 2 weeks, how often have you been feeling down, depressed or hopeless (1) Several Days 04/07/2018 08:32 Primary DOC Guide - E. Family Violence Assessment 04/07/2018 08:32 CRW Within the past year, has anyone ever pushed, shoved, slapped, choked, hit, punched or kicked you: No 04/07/2018 10:08 Admit/Discharge - *Discharge instructions/tests andamp; procedures/med list reviewed and provided; prescriptions given to patient 04/07/2018 10:08 [facility] PATIENT NAME: OLIVER CUNNINGHAM [address] [facility] [address] [place] MEDICAL REC #: [id number] [place] [address] EMERGENCY DEPARTMENT REPORT EMERGENCY DEPARTMENT PHYSICIAN 04/07/2018 10:08 Admit/Discharge - Ambulated with steady gait home 04/07/2018 10:08 [facility] 04/07/2018 10:08 Admit/Discharge - Discharge 04/07/2018 10:08 [facility] MEDICATIONS IV IV Fluid: B 04/07/2018 08:27 04/07/2018 08:28 CRW Line #: 1 Fluid: Saline Lock Rate: ml/hr Location: antecubital fossa left Ndl Gauge: 20 # Attempts: 1 Notes: IV FLUSHED WITHOUT RESISTANCE, LABS DRAWN AT IV START IV Fluid: E 04/07/2018 10:07 04/07/2018 10:08 [facility] Line #: 1 Rate: ml/hr Location: antecubital fossa left Ndl Gauge: 20 # Attempts: 1 Notes: CATHETER REMOVED INTACT, NO BLEEDING NOTED AT SITE, GAUZE DRESSING APPLIED. I AND O VITALS VS-ROUTINE Time: 04/07/2018 06:54 B/P: 171/92 - Right Upper Arm - Sitting - Machine Pulse: 96 - Monitor Resp: 17 Sa02: 100 Room Air Temp: 97.50 F - Oral 04/07/2018 06:56 JRHD VS-Pain Time: 04/07/2018 06:54 Pain Level: 10 04/07/2018 06:56 JRHD VS-GCS Time: 04/07/2018 06:54 04/07/2018 06:56 JRHD VS-HT/WT Time: 04/07/2018 06:54 Ht: 71 in. Stated Weight: 188 lbs Stated 04/07/2018 06:56 JRHD VS-Visual Time: 04/07/2018 06:54 04/07/2018 06:56 JRHD [facility] PATIENT NAME: OLIVER CUNNINGHAM [address] [facility] [address] [facility] [address] [place] MEDICAL REC #: [id number] [place] [address] EMERGENCY DEPARTMENT REPORT EMERGENCY DEPARTMENT PHYSICIAN VS-FHT Time: 04/07/2018 06:54 04/07/2018 06:56 JRHD VS-Notes Time: 04/07/2018 06:54 map 123 04/07/2018 06:56 JRHD VS-ROUTINE Time: 04/07/2018 08:42 B/P: 129/73 - Left Upper Arm - Sitting - Machine Pulse: 83 - Monitor Resp: 20 Sa02: 96 Room Air 04/07/2018 08:43 CRW VS-Pain Time: 04/07/2018 08:42 04/07/2018 08:43 CRW VS-GCS Time: 04/07/2018 08:42 Visual: 4 Verbal: 5 Motor: 6 GCS Total: 15 04/07/2018 08:43 CRW VS-HT/WT Time: 04/07/2018 08:42 04/07/2018 08:43 CRW VS-Visual Time: 04/07/2018 08:42 04/07/2018 08:43 CRW VS-FHT Time: 04/07/2018 08:42 04/07/2018 08:43 CRW VS-Notes Time: 04/07/2018 08:42 MAP 95 04/07/2018 08:43 CRW VS-ROUTINE Time: 04/07/2018 10:07 B/P: 136/77 - Right Upper Arm - Lying - Machine Pulse: 78 - Gunstock Spray Unit Adjuster Resp: 18 Sa02: 97 Room Air 04/07/2018 10:07 CMS VS-Pain Time: 04/07/2018 10:07 Pain Level: 4 04/07/2018 10:07 CMS VS-GCS Time: 04/07/2018 10:07 04/07/2018 10:07 CMS VS-HT/WT Time: 04/07/2018 10:07 04/07/2018 10:07 CMS VS-Visual Time: 04/07/2018 10:07 04/07/2018 10:07 CMS VS-FHT Time: 04/07/2018 10:07 04/07/2018 10:07 CMS VS-Notes Time: 04/07/2018 10:07 MAP = 101 04/07/2018 10:07 CMS ORDERS Discharge patient 04/07/2018 09:46 N/A Ordered: 04/07/2018 09:44 By . Other Reviewed: 04/07/2018 09:46 By . Other Tylenol (PO)*(325mg) DOSE: 975 mg PO 04/07/2018 10:07 N/A Ordered: 04/07/2018 09:43 By Juan Carlos Segura [facility] PATIENT NAME: OLIVER CUNNINGHAM [address] [facility] [address] [facility] [address] [place] MEDICAL REC #: [id number] [place] [address] EMERGENCY DEPARTMENT REPORT EMERGENCY DEPARTMENT PHYSICIAN Completed Time: 04/07/2018 10:07 By Juan Carlos Segura Noted Time: 04/07/2018 09:50 CMS AWNING CRAFTSMAN ORDER: GFRP 04/07/2018 08:48 None Ordered: 04/07/2018 08:48 Completed Time: 04/07/2018 08:48 Results Time: 04/07/2018 08:48 AWNING CRAFTSMAN ORDER: POCTROP 04/07/2018 08:41 None Ordered: 04/07/2018 08:41 Completed Time: 04/07/2018 08:41 Results Time: 04/07/2018 08:41 CT abd and pel with IV con only 04/07/2018 08:59 N/A Ordered: 04/07/2018 07:50 By Juan Carlos Segura Completed Time: 04/07/2018 08:59 By Juan Carlos Segura Indication: Abdominal Pain Noted Time: 04/07/2018 08:51 Question: Patient has history of true RCM allergy? Answer: NO CBC with diff 04/07/2018 08:33 N/A Ordered: 04/07/2018 07:50 By Juan Carlos Segura Completed Time: 04/07/2018 08:33 By Juan Carlos Segura Noted Time: 04/07/2018 08:27 CRW Results Time: 04/07/2018 08:33 BMP 04/07/2018 08:48 N/A Ordered: 04/07/2018 07:50 By Juan Carlos Segura Completed Time: 04/07/2018 08:48 By Juan Carlos Segura Noted Time: 04/07/2018 08:27 CRW Results Time: 04/07/2018 08:48 POC troponin 04/07/2018 08:27 N/A Ordered: 04/07/2018 07:50 By Juan Carlos Segura Noted Time: 04/07/2018 08:27 CRW Noted Notes: TRIAGE MACHINE EKG and most recent EKG 04/07/2018 08:00 N/A Ordered: 04/07/2018 07:50 By Juan Carlos Segura Completed Time: 04/07/2018 08:00 By Juan Carlos Segura [facility] PATIENT NAME: OLIVER CUNNINGHAM [address] [facility] [address] [place] MEDICAL REC #: [id number] [place] [address] EMERGENCY DEPARTMENT REPORT EMERGENCY DEPARTMENT PHYSICIAN Noted Time: 04/07/2018 07:56 JLMB Liver profile 04/07/2018 08:48 N/A Ordered: 04/07/2018 07:50 By Juan Carlos Segura Completed Time: 04/07/2018 08:48 By Juan Carlos Segura Noted Time: 04/07/2018 08:27 CRW Results Time: 04/07/2018 08:48 Lipase 04/07/2018 08:48 N/A Ordered: 04/07/2018 07:50 By Juan Carlos Segura Completed Time: 04/07/2018 08:48 By Juan Carlos Segura Noted Time: 04/07/2018 08:27 CRW Results Time: 04/07/2018 08:48 CXR PA and lateral 04/07/2018 08:33 N/A Ordered: 04/07/2018 07:50 By Juan Carlos Segura Completed Time: 04/07/2018 08:33 By Juan Carlos Segura Indication: chest pain Noted Time: 04/07/2018 08:17 Question: How is patient transported? (A = Ambulatory, B = Bed, C = Carry, CR = Crib, P = Portable, S = Stretcher, W = Wheelchair, X = Wide Wheelchair, XT = Trauma X RM17 (ED Only)) Answer: STRETCHER DISCHARGE Diagnosis: Chronic abdominal/chest pain 04/07/2018 09:44 Disposition: Time: 04/07/2018 09:44 Discharge Time: 04/07/2018 10:11 Type: Discharge Condition: Stable for admission/discharge/transfer after emergency evaluation/treatment Category: *NOT APPLICABLE Referral: 04/07/2018 09:44 Admit Physician: . Other PRESCRIPTIONS [facility] PATIENT NAME: OLIVER CUNNINGHAM [facility] [facility] MEDICAL REC #: [id number] [place] [address] EMERGENCY DEPARTMENT REPORT EMERGENCY DEPARTMENT PHYSICIAN CHARGES SIGNATURE Loulou VELAZCO RN CRGerri Kang RN SXM Shaye Graham RN [facility] NELDA LYNNMB Juan Carlos Segura MD [id number] ACE WADDELL RN [facility] PATIENT NAME: OLIVER CUNNINGHAM Abdulkadir [facility] [address] MEDICAL REC #: [id number] [place] [address] EMERGENCY DEPARTMENT REPORT EMERGENCY DEPARTMENT PHYSICIAN TROPONIN I POC Collected: 04/07/2018 Status: F Source: [facility] 8:22 AM CENTER CANT REPOSITORY TYPE CODE TESTS RESULT OUT OF RANGE REFERENCE UNITS LAB L550.65878 0.0-0.06 NG/ML Normal TROPONIN I POC 0.00 Result Comment: 0.0 - 0.06 NG/ML - NON- DIAGNOSTIC (REFERENCE RANGE) 0.07 - 0.59 NG/ML - INDETERMINATE Greater than or equal to 0.6 NG/ML - INDICATIVE OF MYOCARDIAL DAMAGE CBC W/DIFF Collected: 04/07/2018 Status: F Source: [facility] 8:20 AM [facility] REPOSITORY Order Comment: [place]: TYPE CODE TESTS RESULT OUT OF RANGE REFERENCE UNITS LAB L200.90161 4.5-11.0 K/CUMM WBC Normal 7.1 LAB L200.33936 4.50-6.00 M/CU MM RBC Normal 4.74 LAB L200.14797 13.5-17.5 G/DL HGB Normal 15.5 LAB L200.44254 41.0-53.0 % HCT Normal 45.7 LAB L200.19497 80.0-99.0 fl MCV Normal 96.4 LAB L200.64395 32.0-36.0 GM/DL MCHC Normal 33.9 LAB L200.30682 11-14.5 RDW Normal 12.6 LAB L200.27151 9.4-12.4 Low MPV 8.6 LAB L200.75205 150-450 K/CU MM PLT Normal 253 LAB L200.29861 45-75 % NEUTROPHILS Normal % 66.1 LAB L200.12295 Less than 2 % IMMATURE Normal GRAN % 0.4 LAB L200.41648 20-40 % LYMPH % Normal 22.3 LAB L200.31888 2-10 % MONOCYTE % Normal 8.7 LAB L200.49811 0-5 % EOSINOPHIL Normal % 1.6 LAB L200.65584 0-2 % BASOPHIL % Normal 0.9 LAB L200.09832 2.0-8.3 K/CU MM NEUTROPHIL Normal ABS 4.70 LAB L200.51525 Less than 2 K/CU MM IMMATR GRAN Normal ABS 0.00 LAB L200.45850 0.9-4.4 K/CU MM LYMPH ABS Normal 1.60 LAB L200.52346 0.1-1.1 K/CU MM MONO ABS Normal 0.60 LAB L200.62891 0-0.5 K/CU MM EOS ABS Normal 0.10 LAB L200.17615 0-0.2 K/CU MM BASO ABS Normal 0.10 LAB L200.33698 Less than 1 % NRBC Normal 0.0 Performed By: #### L200.68286 #### [facility] [address] [id number] BMP Collected: 04/07/2018 Status: F Source: [facility] 8:20 AM [facility] REPOSITORY Order Comment: [place]: M TYPE CODE TESTS RESULT OUT OF RANGE REFERENCE UNITS LAB L500.44901 136-145 MMOL/L Normal NA 136 LAB L500.99521 3.5-5.1 MMOL/L Normal K 4.2 LAB L500.87759 98-107 MMOL/L Normal CL 100 LAB L500.32145 21-32 MMOL/L Normal CO2 30 LAB L500.43452 5-16 MMOL/L Normal AGAP 6 LAB L500.42663 70-100 MG/DL High GLU 129 Result Comment: 70-100- Normal Fasting; 100-125 Impaired Fasting; greater than 126 on more than one result- Diabetes. ADA guidelines. Results may be falsely elevated after the administration of Sulfapyridine. Results may be falsely depressed after the administration of Sulfasalazine. LAB L500.48826 7-26 MG/DL Normal BUN 7 LAB L500.80917 0.670-1.170 MG/DL Normal CREAT 0.746 Result Comment: Patients receiving either N-Acetylcysteine (NAC) or Metamizole prior to venipuncture, may have falsely depressed results. LAB L500.04477 15-24 Low BUN/CREA 10 LAB L500.56897 8.5-10.1 MG/DL Normal CALCIUM TOTAL 8.6 Performed By: #### L500.81884, L500.34848, L500.42058, L500.77436 #### [facility] [address] [place] [address] GFR EST Collected: 04/07/2018 Status: F Source: [facility] 8:20 AM [facility] REPOSITORY Order Comment: [place]: M TYPE CODE TESTS RESULT OUT OF RANGE REFERENCE UNITS LAB L500.34047 ML/MIN Normal IF non-AFR Greater than AMER 60 LAB L500.27451 ML/MIN Normal IF Greater than AMER 60 Performed By: #### L500.44361, L500.52361, L500.48033, L500.48973 #### [facility] [address] [place] [address] LIVER Collected: 04/07/2018 Status: F Source: [facility] 8:20 AM [facility] REPOSITORY Order Comment: [place]: M TYPE CODE TESTS RESULT OUT OF RANGE REFERENCE UNITS LAB L500.31581 6.0-8.5 GM/DL TP Normal 7.1 LAB L500.33246 3.2-5.0 GM/DL Normal ALBUMIN 3.8 LAB L500.96390 2.2-4.2 GM/DL Normal GLOBULIN 3.4 LAB L500.65944 0.8-2.0 Normal A/G RATIO 1.1 LAB L500.57962 0.2-1.0 MG/DL Normal BILI TOTAL 0.3 LAB L500.68253 0.00-0.20 MG/DL Normal BILI DIRECT 0.10 LAB L500.92540 8-34 U/L Normal SGOT (AST) 14 Result Comment: RESULTS MAY BE FALSELY DEPRESSED AFTER THE ADMINISTRATION OF SULFASALAZINE AND/OR SULFAPYRIDINE. LAB L500.78391 13-61 IU/L Normal SGPT (ALT) 23 Result Comment: RESULTS MAY BE FALSELY DEPRESSED AFTER THE ADMINISTRATION OF SULFASALAZINE AND/OR SULFAPYRIDINE. LAB L500.03420 45-117 U/L Normal ALK PHOS 65 Performed By: #### L500.69615, L500.78460, L500.63868, L500.19489 #### [facility] [address] [place] [address] LIPASE Collected: 04/07/2018 Status: F Source: [facility] 8:20 AM [facility] REPOSITORY Order Comment: [place]: M TYPE CODE TESTS RESULT OUT OF RANGE REFERENCE UNITS LAB L500.94512 73-393 U/L Normal LIPASE 154 Performed By: #### L500.60414, L500.04736, L500.27949, L500.33167 #### [facility] [address] [phone] ABD/PEL W IV Observed: 04/07/2018 Status: F Source: [facility] CONTRAST ONLY 6:52 AM [facility] CT ABD/PEL W IV CONTRAST ONLY Ordering Physician: Juan Carlos Segura MD 04/07/2018 7:[address] ABDOMEN AND PELVIS WITH IV CONTRAST: Clinical Statement: Abdominal pain, bilateral groin/low pelvic pain radiating superiorly Comparison: CT abdomen pelvis 02/07/2018 TECHNIQUE: Contiguous transaxial 3.75 mm slices were obtained through the abdomen and pelvis following the uneventful administration of 100 cc of Isovue 300 IV contrast. Coronal and sagittal reformats were also obtained. FINDINGS: The liver, spleen, adrenal glands, right kidney, and pancreas are unremarkable. Cyst is noted in the left kidney. No hydronephrosis. There is no bowel obstruction or bowel thickening. The appendix is not inflamed. Scattered calcified plaque is seen in the aorta and iliac arteries which are nonaneurysmal. The prostate is enlarged measuring 5 cm in diameter. There are postoperative changes of bilateral inguinal hernia repairs. Soft tissue densities are concerning within both inguinal canals are not significantly changed from prior exam. There are postoperative changes of vasectomy. No acute osseous findings. IMPRESSION: Postoperative changes of bilateral inguinal hernia repair with similar soft tissue nodularity in both inguinal canals. A report was sent to the Emergency Department at the time of dictation. ---- Electronic Signature on File ---- Signed By: Kate Best MD [email or web address] Dictated: 04/07/2018 8:51 AM Signed: 04/07/2018 8:59 AM Reported By: KATE BEST M.D. Signed By: KATE BEST M.D. CHEST PA/AP AND Observed: 04/07/2018 Status: F Source: [facility] 6:52 AM [facility] CHEST PA/AP & LATERAL Ordering Physician: Juan Carlos Segura MD 04/07/2018 7:51 AM CHEST PA AND LATERAL, THREE VIEWS TOTAL Clinical Statement: Chest pain, patient states history of emphysema and smoking history Comparison: Chest CT March 22, 2018 and chest radiograph March 22, 2018 FINDINGS: The heart size and mediastinal contours are within normal limits. The lungs are emphysematous. There is no acute infiltrate, venous congestion, or pleural effusion. The chest wall structures are appropriate for age. Cholecystectomy clips are noted. IMPRESSION: Emphysema/COPD. No radiographically acute process or significant interval change. ---- Electronic Signature on File ---- Signed By: Donna Thurston MD [email or web address] Dictated: 04/07/2018 8:24 AM Signed: 04/07/2018 8:25 AM Reported By: DONNA THURSTON M.D. Signed By: DONNA THURSTON M.D. EKG Observed: 04/07/2018 Status: UNK Source: [facility] 6:52 AM [facility] REPOSITORY Procedure Date and Time: 04/07/18 0756 Test Reason : STAT Blood Pressure : / mmHG Vent. Rate : 090 BPM Atrial Rate : 090 BPM P-R Int : 122 ms QRS Dur : 090 ms QT Int : 362 ms P-R-T Axes : 076 088 074 degrees QTc Int : 442 ms Normal sinus rhythm Normal ECG When compared with ECG of 22-MAR-2018 11:49, No significant change was found Confirmed by CHANO DUVALL A. ([id number]) on 04/08/2018 2:22:41 PM Referred By: Juan Carlos Segura Confirmed By:Flaco DUVALL M.D.FACC [place] DDandT: 04/07/18 0756 TDandT: [facility] PATIENT NAME[facility] MED[facility] REC #: [id number] [place] [address] ADMIT DATE: DISCHARGE DATE: 04/07/18 ATTENDING PHY: Juan Carlos Segura MD ELECTROCARDIOGRAM REPORT CLB cc: [facility] PATIENT NAME: OLIVER CUNNINGHAM [facility] [address] [place] MEDICAL REC #: [id number] [place] [address] ADMIT DATE: DISCHARGE DATE: 04/07/18 ATTENDING PHY: Juan Carlos Segura MD ELECTROCARDIOGRAM REPORT CR CHEST PORTABLE Observed: 04/05/2018 Status: F Source: [facility] 2:11 PM SYSTEM REPOSITORY Patient Name: OLIVER CUNNINGHAM Diagnostic Radiology Exam Date/Time 04/05/2018 10:45:00 EST Exam CR Chest Portable Ordering Physician CHITO MARIE, KAIT Fernández Accession Number [id number] CPT4 Codes 49162 () Reason For Exam chest pain Report HISTORY: Chest pain shortness of breath cough history of emphysema smoker Frontal view the chest shows hyperinflation lungs. No mass infiltrate or pleural effusion or other acute finding is seen Report Dictated on Final Dictating Physician: MD NICOLE WILLIAM Signed Date and Time: 04/05/2018 2:12 pm Signed by: MD NICOLE WILLIAM Transcribed Date and Time: 04/05/2018 2:13 CT ABDOMEN/PELVIS W/ Observed: 04/05/2018 Status: F Source: [facility] CONTRAST 12:48 PM SYSTEM REPOSITORY Patient Name: OLIVER CUNNINGHAM CT Exam Date/Time 04/05/2018 12:32:[address] Abdomen/Pelvis w/ IV Contrast (IV Onl Ordering Physician CHITO MARIE, KAIT Fernández Accession Number [id number] CPT4 Codes 72576 (CT Abdomen/Pelvis w/ IV Contrast (IV Onl) Reason For Exam pain; s/p hernia repair Report HISTORY: Pain status post hernia surgery 03/21/2018 After intravenous contrast sections performed through the abdomen and pelvis. Liver and spleen show no definite focal abnormalities with prior cholecystectomy. Small cortical cyst left kidney. Appendix is identified and appears normal. There is marked aortoiliac atherosclerosis for age. Prior bilateral inguinal hernia repair. Mildly enlarged prostate gland with moderate urinary bladder distention. Degenerated disc at the L5-S1 level with slight retrolisthesis with facet degenerative changes. IMPRESSION: 1. Prior bilateral inguinal hernia repairs with no definite significant finding here 2. Distended urinary bladder with prostatic enlargement 3. Marked aortoiliac atherosclerosis 4. Degenerative arthritis and disc disease at L5-S1 level Report Dictated on Final Dictating Physician: MD NICOLE WILLIAM Signed Date and Time: 04/05/2018 12:52 pm Signed by: MD NICOLE WILLIAM Transcribed Date and Time: 04/05/2018 12:53 CTA CHEST W/ + W/O Observed: 04/05/2018 Status: F Source: [facility] CONTRAST 12:41 PM SYSTEM REPOSITORY Patient Name: OLIVER CUNNINGHAM CT Exam Date/Time 04/05/2018 12:32:37 EST Exam CTA Chest w/ + w/o Contrast Ordering Physician MD MARCOS, CADE Accession Number [id number] CPT4 Codes 29062 (), Q9967 (CT ISOVUE 370MG/[id number]) Reason For Exam CHEST PAIN, ACUTE, PULMONARY EMBOLISM SUSPECTED Report Reasons for examination: Chest pain/ shortness of breath. CT scan of the chest were performed with bolus contrast and high resolution scans for CT pulmonary angiographic study, with images post-processed by myself on [employer] workstation, with 3D - volume rendered CT and MPR angiographic images reconstructed. The heart size is normal, and there are no pericardial or pleural effusions. There are no congestive changes in the pulmonary vasculature. The thoracic aorta is unremarkable. CT pulmonary angiographic examination is a high quality study, which demonstrates no evidence of acute pulmonary embolism. The right side of the heart, pulmonary outflow tract, right and left main, lobar, and larger segmental pulmonary arteries all appear clear. Note that the technique is limited for detection of small, subsegmental, peripheral emboli, but none are seen. IMPRESSION: 1.Negative CT scan of the chest for evidence of acute pulmonary embolism. 2. Changes of severe centrilobular emphysema 3. Small 5-6 mm nodule or nodular infiltrate/mucous plugging left upper lobe Report Dictated on Final Dictating Physician: MD NICOLE WILLIAM Signed Date and Time: 04/05/2018 12:48 pm Signed by: MD COREY, PIERCE Transcribed Date and Time: 04/05/2018 12:49 HEMOGRAM W/ AUTODIFF Collected: 04/05/2018 Status: F Source: [facility] 11:18 AM SYSTEM REPOSITORY TYPE CODE TESTS RESULT OUT OF REFERENCE UNITS RANGE LAB IWBC 3.6-10.7 10*3/uL WBC Normal 6.5 LAB RBC 4.40-5.90 10*6/uL RBC Normal 4.53 LAB HGB 13.0-18.0 g/dL Hemoglobin Normal 14.9 LAB HCT 40.0-52.0 % Hematocrit Normal 43.9 LAB MCV 80.0-98.0 fL MCV Normal 96.9 LAB MCH 26.0-34.0 pg MCH Normal 32.9 LAB MCHC 32.0-36.0 % MCHC Normal 33.9 LAB RDW 11.5-14.5 % RDW Normal 13.2 LAB PLT 140-440 10*3/uL Platelet Normal 250 LAB MPV 7.4-10.4 fL Low MPV 6.6 LAB GRAN% 40.0-80.0 % Granulocytes Normal 72.5 LAB LYMP% 20.0-40.0 % Low Lymphocytes 17.9 LAB MONO% 2.0-10.0 % Monocytes Normal 7.5 LAB EOS% 1.0-6.0 % Eosinophils Normal 1.2 LAB BAS% 0.0-2.0 % Basophils Normal 0.9 LAB ANC 1.8-7.0 10*3/uL Abs Normal Neutrophile Cnt 4.7 LAB ALC 1.0-4.3 10*3/uL Abs Lymph Cnt Normal 1.2 LAB AMC 0.0-0.8 10*3/uL Abs Monocyte Normal Cnt 0.5 LAB AEC 0.0-0.5 10*3/uL Abs Eosin Cnt Normal 0.1 LAB ABC 0.0-0.2 10*3/uL Abs Baso Cnt Normal 0.1 Performed By: #### HEMDF, LACT3, BMP3, LFT3, LIPA4, MG3, TROPN #### [facility] [address] [place] [address] LACTIC ACID Collected: 04/05/2018 Status: F Source: [facility] 11:18 AM SYSTEM REPOSITORY TYPE CODE TESTS RESULT OUT OF RANGE REFERENCE UNITS LAB LACT3 0.7-2.0 mmol/L Normal Lactic Acid 1.7 Performed By: #### HEMDF, LACT3, BMP3, LFT3, LIPA4, MG3, TROPN #### [facility] [address] [place] [address] BASIC METABOLIC PANEL Collected: 04/05/2018 Status: F Source: [facility] 11:18 AM SYSTEM REPOSITORY TYPE CODE TESTS RESULT OUT OF RANGE REFERENCE UNITS LAB NA3 135-145 mmol/L Sodium Normal 137 LAB K3 3.5-5.1 mmol/L Normal Potassium 4.2 LAB CL3 98-107 mmol/L Chloride Normal 103 LAB CO23 22-30 mmol/L Carbon Normal Dioxide 29 LAB ANIN3 NA Anion Gap 6 LAB GLUC3 70-100 mg/dL High Glucose 131 LAB BUN3 7-20 mg/dL Urea Normal Nitrogen 11 LAB CRET3 0.52-1.25 mg/dL Normal Creatinine 0.64 LAB GF3BR >60 mL/min eGFR > 60.0 LAB GF3WR >60 mL/min eGFR OTHER > 60.0 Result Comment: Source- MDRD equation with creatinine calibration to IDMS(NKDEP) eGFR not recommended for drug dose adjustment LAB CA3 8.4-10.4 mg/dL Normal Calcium 8.9 Performed By: #### HEMDF, LACT3, BMP3, LFT3, LIPA4, MG3, TROPN #### [facility] [address] [place] [address] HEPATIC FUNCTION Collected: 04/05/2018 Status: F Source: [facility] 11:18 AM SYSTEM REPOSITORY TYPE CODE TESTS RESULT OUT OF RANGE REFERENCE UNITS LAB ALB3 3.5-5.0 g/dL Albumin, Normal Serum 4.2 LAB TP3 6.3-8.2 g/dL Total Normal Protein 6.5 LAB BILT3 0.2-1.3 mg/dL Normal Bilirubin,Total 0.2 LAB BILD3 0.0-0.3 mg/dL Normal Bilirubin,Direct 0.0 LAB ALKP3 38-126 U/L Alkaline Normal Phosphatase 69 LAB ALT3 13-69 U/L ALT (SGPT) Normal 28 LAB AST3 15-46 U/L AST (SGOT) Normal 18 Performed By: #### HEMDF, LACT3, BMP3, LFT3, LIPA4, MG3, TROPN #### [facility] [address] [place] [address] LIPASE Collected: 04/05/2018 Status: F Source: [facility] 11:18 AM SYSTEM REPOSITORY TYPE CODE TESTS RESULT OUT OF RANGE REFERENCE UNITS LAB LIPA4 23-300 U/L Normal Lipase 171 Performed By: #### HEMDF, LACT3, BMP3, LFT3, LIPA4, MG3, TROPN #### [facility] [address] [place] [address] MAGNESIUM Collected: 04/05/2018 Status: F Source: [facility] 11:18 AM SYSTEM REPOSITORY TYPE CODE TESTS RESULT OUT OF RANGE REFERENCE UNITS LAB MG3 1.6-2.3 mg/dL Normal Magnesium 2.1 Performed By: #### HEMDF, LACT3, BMP3, LFT3, LIPA4, MG3, TROPN #### [facility] [address] [place] [address] TROPONIN I Collected: 04/05/2018 Status: F Source: [facility] 11:18 AM SYSTEM REPOSITORY TYPE CODE TESTS RESULT OUT OF RANGE REFERENCE UNITS LAB TROP4 0.000-0.034 ng/mL Normal Troponin I < 0.012 Result Comment: 0.046 - 0.400 = Indeterminate > 0.400 = Consider Myocardial Injury Performed By: #### HEMDF, LACT3, BMP3, LFT3, LIPA4, MG3, TROPN #### Lost My Name [facility] [address] [place] [address] URINALYSIS,MACRO Collected: 04/05/2018 Status: F Source: [facility] 11:18 AM SYSTEM REPOSITORY TYPE CODE TESTS RESULT OUT OF REFERENCE UNITS RANGE LAB APPUR Clear NA Appearance CLEAR LAB COLUR Lt. Yellow NA Color YELLOW LAB USG 1.005-1.030 NA Specific Normal [place],Urine 1.010 LAB UPH 5.0-8.0 NA pH,Urine Normal 5.5 LAB ULUK Negative NA Leukocytes NEG LAB UNIT Negative NA Nitrites NEG LAB UPRO Negative mg/dL Total Protein,Urine NEG LAB UGLU Negative mg/dL Glucose,Urine NEG LAB UKET Negative mg/dL Ketone,Urine NEG LAB UURO 0-1 mg/dL Urobilinogen 0.2 LAB UBIL Negative NA Bilirubin,Ur NEG LAB UBLD Negative {RBC}/uL Occult Blood,Ur NEG Performed By: #### UAMAC #### [facility] [address] [place] [address] ED PROVIDER NOTE Observed: 04/05/2018 Status: F Source: [facility] 10:15 AM SYSTEM REPOSITORY Attending Note I have personally performed a face to face assessment of the patient and have reviewed the JEFF note. My donovan findings include: History: Reports abdominal pain, reports abdominal pain is radiating into the chest. Pain started 2 weeks ago. Physical exam: Cardiovascular examination: Regular rate and rhythm, normal S1 and S2. Pulmonary examination: Lungs clear to auscultation bilaterally. Abdominal exam is: Abdomen is soft, mild bilateral lower abdominal tenderness, no guarding, no rebound, no rigidity, normal bowel cells, no Valdivia sign Assessment and plan: EKG Interpretation Interpreted by emergency department physician Rhythm: normal sinus Rate: normal Derby Line: right Ectopy: none Conduction: normal ST Segments: no acute change T Waves: no acute change CADE BRISENO CT scans were ordered. Mild urinary retention. He is able to urinate in the emergency partner. Retention is less than 400 mL. He is nontender on checking of his bladder scan. Signature: MD Cade GOLDEN MD 04/06/18 0740 ED PROVIDER NOTE Observed: 04/05/2018 Status: F Source: [facility] 10:15 AM SYSTEM REPOSITORY Attestation signed by Cade Briseno MD at 04/08/2018 7:47 PM See my note MARLEEN GARCIA ED eMERGENCY dEPARTMENT eNCOUnter Pt Name: Oliver Cunningham Birthdate 1960 Date of evaluation: 04/05/2018 Provider: KAIT MARIE APRN - ERNESTO I have evaluated this patient in conjunction with Dr. Briseno in the emergency department. CHIEF COMPLAINT Chief Complaint Patient presents with ? Abdominal Pain HISTORY OF PRESENT ILLNESS (Location/Symptom, Timing/Onset,Context/Setting, Quality, Duration, Modifying Factors, Severity) Note limiting factors. EVGENY Cunningham is a 57 y.o. male who presents to the emergency department with the complaints of abdominal pain having the feeling that there is sand in my veins. The patient explains that on 03/21/2018 that he had a second hernia repair. He states that at that time more mesh was placed in his abdomen by a surgeon at [facility]. He states that in 2017 he had the original hernia repair and has been having abdominal pain ever since. He states that the abdominal pain starts at his lower abdomen and radiates up into his chest and under his left armpit. He admits to intermittent shortness of breath. He admits to having nausea, vomiting, weakness and constipation. He admits to tobacco use on a daily basis. He states that he has MS for 9 years. Denies fever, chills, dysuria and lower extremity edema. Nursing Notes were reviewed. REVIEW OFSYSTEMS (2+ for level 4; 10+ for level 5) Review of Systems 10 point review of systems performed, pertinent positives as per history of present illness, otherwise noted to be negative. PAST MEDICAL HISTORY Past Medical History: Diagnosis Date ? Anxiety ? Emphysema of lung (HCC) ? Fibromyalgia ? Hypertension ? MS (multiple sclerosis) ([facility]) SURGICAL HISTORY Past Surgical History: Procedure Laterality Date ? BACK SURGERY 1993 ? CHOLECYSTECTOMY 1998 ? HERNIA REPAIR b/l inguinal and abdominal ? SHOULDER SURGERY Bilateral ? TONSILLECTOMY CURRENT MEDICATIONS Discharge Medication List as of 04/05/2018 3:04 PM CONTINUE these medications which have NOT CHANGED Details ondansetron (ZOFRAN ODT) 4 MG disintegrating tablet Take 1 tablet by mouth every 8 hours as needed for Nausea or Vomiting, Disp-12 tablet, R-0Print atorvastatin (LIPITOR) 10 MG tablet Take 10 mg by mouth dailyHistorical Med nitroGLYCERIN (NITROSTAT) 0.[address] 0.4 mg under the tongue every 5 minutes as needed for Chest pain up to max of 3 total doses. If no relief after 1 dose, call 911.Historical Med !! albuterol sulfate HFA (VENTOLIN HFA) 108 (90 Base) MCG/ACT inhaler Inhale 2 puffs into the lungs every 6 hours as needed for Wheezing, Disp-1 Inhaler, R-0Print !! VENTOLIN HFA 108 (90 Base) MCG/ACT inhaler Take 2 puffs by mouth 2 times daily, R-0, DAWHistorical Med LORazepam (ATIVAN) 0.5 MG tablet Take 0.5 mg by mouth 2 times daily..Historical Med GARLIC OIL PO Take 1,000 mg by mouthHistorical Med [place]-3 Fatty Acids (FISH OIL) 1000 MG CAPS Take 3,000 mg by mouth 3 times dailyHistorical Med Nutritional Supplements (PROVENTRA PO) Take by mouthHistorical Med vitamin B-12 (CYANOCOBALAMIN) 1000 MCG tablet Take 1,000 mcg by mouth dailyHistorical Med melatonin 3 MG TABS tablet Take 40 mg by mouth dailyHistorical Med aspirin 81 MG tablet Take 81 mg by mouth dailyHistorical Med acetaminophen (TYLENOL) 325 MG tablet Take 1 tablet by mouth every 6 hours as needed for Pain, Disp-30 tablet, R-0Print mirtazapine (REMERON) 30 MG tablet Take 30 mg by mouth nightlyHistorical Med !! - Potential duplicate medications found. Please discuss with provider. ALLERGIES Hydrocodone; Pregabalin; Atorvastatin; Aubagio [teriflunomide]; Bactrim [sulfamethoxazole-trimethoprim]; Bentyl [dicyclomine hcl]; Citalopram; Citalopram hydrobromide; Colesevelam hcl; Dicyclomine; Duloxetine; Fenofibrate; Hydrochlorothiazide w-amiloride; Magnesium; Metoclopramide; Mobic [meloxicam]; Morphine; Naproxen; Omeprazole magnesium; Penicillins; Polyethylene glycol; Pravastatin; Ranitidine; Rifaximin; Rosuvastatin; Statins; and Copaxone [glatiramer acetate] FAMILY HISTORY Family History Problem Relation Age of Onset ? Cancer Mother ? Other Mother ? Heart Disease Father ? Cancer Maternal Grandmother SOCIAL HISTORY Social History Social History ? Marital status: Spouse name: N/A ? Number of children: N/A ? Years of education: 8, GED and trade school Occupational History ? unemployed Social History Main Topics ? Smoking status: Current Every Day Smoker Packs/day: 0.50 Years: 40.00 Types: Cigarettes ? Smokeless tobacco: Never Used Comment: 1/2 pack for the last year, previously was 3 packs per day ? Alcohol use No Comment: rarely ? Drug use: No Comment: brandon ? Sexual activity: No Other Topics Concern ? None Social History Narrative ? None SCREENINGS PHYSICAL EXAM (up to 7 for level 4, 8 or more for level 5) ED Triage Vitals BP Temp Temp Source Pulse Resp SpO2 Height Weight 04/05/18 1019 04/05/18 1019 04/05/18 1019 04/05/18 1019 04/05/18 1019 04/05/18 1019 04/05/18 1018 04/05/18 1018 (!) 160/111 97.7 ?F (36.5 ?C) Temporal 94 20 100 % 5' 11 (1.803 m) 188 lb (85.3 kg) Physical Exam Constitutional: He is oriented to person, place, and time. He appears well-developed and well-nourished. HENT: Head: Normocephalic and atraumatic. Eyes: Pupils are equal, round, and reactive to light. EOM are normal. Neck: Normal range of motion. Neck supple. Cardiovascular: Normal rate, regular rhythm, normal heart sounds and intact distal pulses. Pulmonary/Chest: Effort normal and breath sounds normal. No respiratory distress. He has no wheezes. Abdominal: Soft. Bowel sounds are normal. He exhibits no distension. Lower abdominal tenderness; ecchymosis noted near umbilicus Musculoskeletal: Normal range of motion. He exhibits no edema or deformity. Neurological: He is alert and oriented to person, place, and time. Skin: Skin is warm and dry. Capillary refill takes less than 2 seconds. Nursing note and vitals reviewed. DIAGNOSTIC RESULTS EKG (Per Emergency Physician): RADIOLOGY (Per Emergency Physician): Interpretation per the Radiologist below, if available at the time of this note: No results found. ED BEDSIDE ULTRASOUND: Performed by ED Physician - none LABS: Labs Reviewed BASIC METABOLIC PANEL - Abnormal; Notable for the following: Result Value Glucose 131 (*) All other components within normal limits Narrative: Test Performed by [facility], [address] [place] [address] CBC WITH AUTO DIFFERENTIAL - Abnormal; Notable for the following: MPV 6.6 (*) Lymphocyte % 17.9 (*) All other components within normal limits Narrative: Test Performed by [facility], [address] [place] [address] HEPATIC FUNCTION PANEL Narrative: Test Performed by [facility], [address] [place] [address] LACTIC ACID, PLASMA Narrative: Test Performed by [facility], [address] [place] [address] LIPASE Narrative: Test Performed by [facility], [address] [place] [address] MAGNESIUM Narrative: Test Performed by [facility], [address] [place] [address] TROPONIN Narrative: Test Performed by [facility], [address] [place] [address] URINALYSIS Narrative: Test Performed by [facility], [facility] [address] [place] [address] All other labs were within normal range or not returned as of this dictation. EMERGENCY DEPARTMENT COURSE and DIFFERENTIAL DIAGNOSIS/MDM: Vitals: Vitals: 04/05/18 1018 04/05/18 1019 04/05/18 1130 04/05/18 1407 BP: (!) 160/111 (!) 135/96 (!) 140/85 Pulse: 94 82 72 Resp: 20 18 16 Temp: 97.7 ?F (36.5 ?C) 97 ?F (36.1 ?C) TempSrc: Temporal Temporal SpO2: 100% 100% 100% Weight: 85.3 kg (188 lb) 85.3 kg (188 lb) Height: 5' 11 (1.803 m) Medications morphine injection 4 mg (4 mg Intravenous Given 04/05/18 1126) ondansetron (ZOFRAN) injection 4 mg (4 mg Intravenous Given 04/05/18 1124) iopamidol (ISOVUE-370) 76 % injection 75 mL (75 mLs Intravenous Given 04/05/18 1223) MDM. Mr. Cunningham presenting to the emergency Department with the above complaints. While here in the emergency department complete metabolic panel and complete blood count were performed which were unremarkable. A lipase resulted at 171. A troponin resulted at 0.012. Chest x-ray was performed and shows no signs of infiltrate, pulmonary edema, pleural effusion or pneumothorax. While patient was here in the emergency department he was medicated with morphine and Zofran. Post void residual bladder scan was performed which resulted with 200 mL of urine left in his bladder. The patient displayed no signs of suprapubic tenderness upon abdominal examination. The patient is given contact information to follow up with urology for urinary retention and he is also been encouraged to follow up with his primary care physician if his abdominal pain continues. He is also been encouraged to follow up with his surgeon who performed his hernia repair. Smoking cessation discussed with patient. He declined any further pertinent information given to him. I estimate there is LOW risk for (including but not limited to) ACUTE APPENDICITIS, BOWEL OBSTRUCTION, ACUTE CHOLECYSTITIS, RUPTURED DIVERTICULITIS, INCARCERATED or STRANGULATED HERNIA, HEMMORHAGIC PANCREATITIS, or PERFORATED BOWEL/ULCER, thus I consider the discharge disposition reasonable. Oliver Panchal Marisa (or their surrogate) and I have discussed the diagnosis and risks, and we agree with discharging home with close follow-up. We also discussed returning to the Emergency Department immediately if new or worsening symptoms occur. We have discussed the symptoms which are most concerning that necessitate immediate return. CRITICAL CARE TIME Total CriticalCare time was 0 minutes, excluding separately reportable procedures. There was a high probability of clinically significant/life threatening deterioration in the patient's condition which required my urgent intervention. CONSULTS: None PROCEDURES: Unless otherwise noted below, none Procedures FINAL IMPRESSION 1. Generalized abdominal pain 2. Urinary retention DISPOSITION/PLAN DISPOSITION Decision To Discharge 04/05/2018 02:43:41 PM PATIENT REFERRED TO: Addison Bernard MD [address] [facility] [address] [facility] [address] Schedule an appointment as soon as possible for a visit in 2 days Jorge Kingsley MD [address] [facility] [address] [facility] [address] Schedule an appointment as soon as possible for a visit for urinary retention DISCHARGE MEDICATIONS: Discharge Medication List as of 04/05/2018 3:04 PM (Please note: Portions of this note were completed with a voice recognition program.Efforts were made to edit the dictations but occasionally words and phrases are mis-transcribed.) Form [id number] @@ (electronically signed) Emergency Medicine Provider Kait Marie, VERONICA - POWER PLANT INSPECTOR 04/08/18 0651 ER Observed: 04/03/2018 Status: UNK Source: [facility] 10:17 PM CENTER [facility] REPOSITORY This is a preliminary report only, as the practitioner review and authentication has not occurred. ER Observed: 04/03/2018 Status: UNK Source: [facility] 10:17 PM CENTER [place] REPOSITORY PHYSICIAN ASSESSMENT DEMOGRAPHICS [employer] Patient: OLIVER CUNNINGHAM Sex: M : 1960 Age: 57 yr Account No: [id number] Registration Date: 18:10 04/03/2018 Address: [address] [place] [address] Address: [place] [address] REGISTRATION ED Number: [id number] Marital Status: D Financial Class: MPPS TRIAGE Priority: 3 - Urgent Complaint: Infection Complaint: Abdominal Pain Stated Complaint: PATIENT STATES RECENT SURGERY AND HE NOW BELIEVES HE HAS AN INFECTION THROUGHOUT HIS BODY FROM SURGERY. DENIES CHILLS OR FEVERS. ABD PAIN STATES NAUSEA AND SOMETIMES HAS COLD SWEATS Arrival Date: 04/03/2018 18:10 Triage Date: 04/03/2018 18:13 Mode of Arrival: *Privately Owned Vehicle Transfer From: * Home WC: N Language: Cypriot Transport: Ambulatory/Walk In BED [facility] PATIENT NAME: OLIVER CUNNINGHAM [address] [place] MEDICAL REC #: [id number] [place] [address] EMERGENCY DEPARTMENT REPORT EMERGENCY DEPARTMENT PHYSICIAN PROVIDERS TRIAGE HISTORY ALLERGIES Allergic To: PCN - Rash 04/03/2018 18:14 [facility] Allergic To: mobic - Rash 04/03/2018 18:14 [facility] Allergic To: lyrica - agitation of nerves 04/03/2018 18:14 [facility] Allergic To: cymbalta - palpitations 04/03/2018 18:14 [facility] Allergic To: abaugio - plugs arteries 04/03/2018 18:14 [facility] Allergic To: copaxone - Rash 04/03/2018 18:14 [facility] Allergic To: hydrochlorothiazide - syncope 04/03/2018 18:14 [facility] Allergic To: Reglan - chest pain 04/03/2018 18:14 [facility] Allergic To: trulance - Unknown 04/03/2018 18:14 [facility] Allergic To: Magnesium Sulfate - BURNING 04/03/2018 18:14 [facility] Allergic To: WELCHOL - ABDOMINAL PAIN 04/03/2018 18:14 [facility] CURRENT MEDS Name: LORAZEPAM 0.5MG TABLET - PO BID PRN 04/03/2018 18:23 [facility] Name: REMERON 30MG TABLET - PO DAILY 04/03/2018 18:23 [facility] PATIENT NAME: OLIVER CUNNINGHAM [address] MEDICAL REC #: [id number] [place] [address] EMERGENCY DEPARTMENT REPORT EMERGENCY DEPARTMENT PHYSICIAN Name: BLAINE PRN 04/03/2018 18:23 [facility] ILLNESS Illness: Anxiety 04/03/2018 18:14 JR Illness: Emphysema 04/03/2018 18:14 [facility] Illness: scleraderma 04/03/2018 18:14 [facility] Illness: multiple sclerosis 04/03/2018 18:14 [facility] PAST SURGERY HIST Surgery: Hernia Repair 04/03/2018 18:14 [facility] Surgery: Cholecystectomy 04/03/2018 18:14 [facility] Surgery: lower back 04/03/2018 18:14 [facility] Surgery: bilateral shoulder 04/03/2018 18:14 [facility] Surgery: Tonsillectomy 04/03/2018 18:14 [facility] Surgery: PARTIAL AMPUTATION RIGHT 3RD andamp; 4TH FINGERS 04/03/2018 18:14 [facility] Surgery: Hernia Repair X 2 04/03/2018 18:23 [facility] PAST SOCIAL HIST Social History: Communicates without difficulty 04/03/2018 18:14 [facility] Social History: Lives with family or significant other 04/03/2018 18:14 [facility] Social History: Alcohol - None 04/03/2018 18:14 [facility] Social History: Recreational Drugs - None 04/03/2018 18:14 [facility] Social History: Alcohol - Occasional- 04/03/2018 18:14 [facility] Social History: Smoker-1/2 PPD 04/03/2018 18:14 [facility] Social History: Denies Domestic Violence 04/03/2018 [facility] PATIENT NAME: OLIVER CUNNINGHAM [address] MEDICAL REC #: [id number] [place] [id number] EMERGENCY DEPARTMENT REPORT EMERGENCY DEPARTMENT PHYSICIAN 18:14 JR Social History: Denies thoughts of self harm. 04/03/2018 18:14 [facility] Social History: Have you traveled in the past month? Where NO 04/03/2018 18:14 [facility] IMMUNIZATIONS Immunization: Pneumonia Vaccine-no 04/03/2018 18:14 [facility] Immunization: Flu Vaccine-no 04/03/2018 18:14 [facility] NURSING ASSESSMENT ASSESSMENT NOTES TREATMENT MEDICATIONS IV I AND O VITALS VS-ROUTINE Time: 04/03/2018 18:18 B/P: 138/85 - Left Upper Arm - Sitting - Pulse: 112 - Monitor Resp: 16 Sa02: 98 Room Air Temp: 98.00 F - Oral 04/03/2018 18:23 [facility] VS-Pain Time: 04/03/2018 18:18 Pain Level: 10 04/03/2018 18:23 [facility] PATIENT NAME: OLIVER CUNNINGHAM [address] [place] MEDICAL REC #: [id number] [place] [address] EMERGENCY DEPARTMENT REPORT EMERGENCY DEPARTMENT PHYSICIAN VS-GCS Time: 04/03/2018 18:18 Visual: 4 Verbal: 5 Motor: 6 GCS Total: 15 04/03/2018 18:23 [facility] VS-HT/WT Time: 04/03/2018 18:18 Ht: 71 in. Weight: 188 lbs 04/03/2018 18:23 [facility] VS-Visual Time: 04/03/2018 18:18 04/03/2018 18:23 [facility] VS-FHT Time: 04/03/2018 18:18 04/03/2018 18:23 [facility] VS-Notes Time: 04/03/2018 18:18 MAP 105 04/03/2018 18:23 [facility] ORDERS LBE (Left Before Exam) 04/03/2018 22:18 N/A Ordered: 04/03/2018 22:18 By Yadira Mukherjee DISCHARGE Diagnosis: LWT 0 04/03/2018 22:18 Disposition: Time: 04/03/2018 22:17 Discharge Time: 04/03/2018 22:17 Type: LBE Condition: LBE CALLED TO GO BACK TO ROOM. NO [id number] Referral: 04/03/2018 22:18 KMF PRESCRIPTIONS CHARGES SIGNATURE Yadira Mukherjee RN KMF ERICA CAMPA JR [facility] PATIENT NAME: OLIVER CUNNINGHAM [address] MEDICAL REC #: [id number] [place] [address] EMERGENCY DEPARTMENT REPORT EMERGENCY DEPARTMENT PHYSICIAN ER Observed: 03/24/2018 Status: UNK Source: [facility] 11:18 AM [facility] [employer] REPOSITORY This is a preliminary report only, as the practitioner review and authentication has not occurred. ER Observed: 03/24/2018 Status: UNK Source: [facility] 11:18 AM [facility] [employer] REPOSITORY PHYSICIAN ASSESSMENT [employer] Patient: OLIVER CUNNINGHAM Sex: M : 1960 Age: 57 yr Account No: [id number] Registration Date: 09:03/24/2018 Address: [address] [facility] [facility] Address: [place] [address] REGISTRATION ED Number: [id number] Marital Status: D Financial Class: MPPS TRIAGE Priority: 3 - Urgent Complaint: Abdominal Pain Stated Complaint: lower abd pain. pt states he had a recent hernia surgery Arrival Date: 03/24/2018 09:10 Triage Date: 03/24/2018 09:29 Mode of Arrival: *Privately Owned Vehicle Transfer From: * Home WC: N Language: Cypriot Transport: Ambulatory/Walk In BED A03 In: 03/24/2018 09:54:22 03/24/2018 09:54:22 MRSA [facility] PATIENT NAME: OLIVER CUNNINGHAM [address] [facility] [address] [facility] [address] MEDICAL REC #: [id number] [place] [address] EMERGENCY DEPARTMENT REPORT EMERGENCY DEPARTMENT PHYSICIAN A03 (Removed From) Out: 03/24/2018 09:55:32 03/24/2018 09:55:32 MRSA [facility] TRIAGE HISTORY ALLERGIES Allergic To: PCN - Rash 03/24/2018 09:31 KSE1 Allergic To: mobic - Rash 03/24/2018 09:31 KSE1 Allergic To: lyrica - agitation of nerves 03/24/2018 09:31 KSE1 Allergic To: cymbalta - palpitations 03/24/2018 09:31 KSE1 Allergic To: abaugio - plugs arteries 03/24/2018 09:31 KSE1 Allergic To: copaxone - Rash 03/24/2018 09:31 KSE1 Allergic To: hydrochlorothiazide - syncope 03/24/2018 09:31 KSE1 Allergic To: Reglan - chest pain 03/24/2018 09:31 KSE1 Allergic To: trulance - Unknown 03/24/2018 09:31 KSE1 Allergic To: Magnesium Sulfate - BURNING 03/24/2018 09:31 KSE1 Allergic To: WELCHOL - ABDOMINAL PAIN 03/24/2018 09:31 KSE1 ILLNESS Illness: Anxiety 03/24/2018 09:31 KSE1 Illness: Emphysema 03/24/2018 09:31 KSE1 [facility] PATIENT NAME: OLIVER CUNNINGHAM [address] [facility] [address] [place] MEDICAL REC #: [id number] [place] [id number] EMERGENCY DEPARTMENT REPORT EMERGENCY DEPARTMENT PHYSICIAN Illness: scleraderma 03/24/2018 09:31 KSE1 Illness: multiple sclerosis 03/24/2018 09:31 KSE1 PAST SURGERY HIST Surgery: Hernia Repair 03/24/2018 09:31 KSE1 Surgery: Cholecystectomy 03/24/2018 09:31 KSE1 Surgery: lower back 03/24/2018 09:31 KSE1 Surgery: bilateral shoulder 03/24/2018 09:31 KSE1 Surgery: Tonsillectomy 03/24/2018 09:31 KSE1 Surgery: PARTIAL AMPUTATION RIGHT 3RD andamp; 4TH FINGERS 03/24/2018 09:31 KSE1 PAST SOCIAL HIST Social History: Communicates without difficulty 03/24/2018 09:31 KSE1 Social History: Lives with family or significant other 03/24/2018 09:31 KSE1 Social History: Alcohol - None 03/24/2018 09:31 KSE1 Social History: Recreational Drugs - None 03/24/2018 09:31 KSE1 Social History: Alcohol - Occasional- 03/24/2018 09:31 KSE1 Social History: Smoker-1/2 PPD 03/24/2018 09:31 KSE1 Social History: Denies Domestic Violence 03/24/2018 09:31 KSE1 Social History: Denies thoughts of self harm. 03/24/2018 09:31 KSE1 Social History: Have you traveled in the past month? Where NO 03/24/2018 09:31 KSE1 IMMUNIZATIONS Immunization: Pneumonia Vaccine-no 03/24/2018 09:31 [facility] PATIENT NAME: OLIVER CUNNINGHAM [address] [facility] [address] [place] MEDICAL REC #: [id number] [place] [address] EMERGENCY DEPARTMENT REPORT EMERGENCY DEPARTMENT PHYSICIAN KSE1 Immunization: Flu Vaccine-no 03/24/2018 09:31 KSE1 NURSING ASSESSMENT ASSESSMENT NOTES TREATMENT MEDICATIONS IV I AND O VITALS VS-ROUTINE Time: 03/24/2018 09:29 B/P: 167/84 - Right Upper Arm - - Machine Pulse: 130 - Monitor Resp: 18 Sa02: 97 Room Air Temp: 97.60 F - Oral 03/24/2018 09:31 KSE1 VS-Pain Time: 03/24/2018 09:29 Pain Level: 10 03/24/2018 09:31 KSE1 VS-GCS Time: 03/24/2018 09:29 Visual: 4 Verbal: 5 Motor: 6 GCS Total: 15 03/24/2018 09:31 KSE1 VS-HT/WT Time: 03/24/2018 09:29 Ht: 180.3 cm Stated Weight: 84.8 kg Stated 03/24/2018 09:31 KSE1 VS-Visual Time: 03/24/2018 09:29 03/24/2018 09:31 KSE1 VS-FHT Time: 03/24/2018 09:29 03/24/2018 09:31 KSE1 VS-Notes Time: 03/24/2018 09:29 map: 115 03/24/2018 09:31 KSE1 [facility] PATIENT NAME: OLIVER CUNNINGHAM [address] [facility] [address] [place] MEDICAL REC #: [id number] [place] [address] EMERGENCY DEPARTMENT REPORT EMERGENCY DEPARTMENT PHYSICIAN ORDERS LBE (Left Before Exam) 03/24/2018 13:11 N/A Ordered: 03/24/2018 13:11 By JONNY GRASS DISCHARGE Diagnosis: LWT 0 03/24/2018 13:11 Disposition: Time: 03/24/2018 11:18 Discharge Time: 03/24/2018 11:18 Type: LBE Condition: LBE no answer when patients name was called at 1106 and 1118 Referral: 03/24/2018 13:11 [facility]GA PRESCRIPTIONS CHARGES SIGNATURE Ashlie Hudson RN KSE1 JONNY WHITAKER RN BMGA JOSE BENAVIDEZ MRSA [facility] PATIENT NAME: OLIVER CUNNINGHAM [address] [facility] [address] [place] MEDICAL REC #: [id number] [place] [address] EMERGENCY DEPARTMENT REPORT EMERGENCY DEPARTMENT PHYSICIAN ER Observed: 03/22/2018 Status: UNK Source: [facility] 4:25 PM [facility] REPOSITORY This is a preliminary report only, as the practitioner review and authentication has not occurred. ER Observed: 03/22/2018 Status: UNK Source: [facility] 4:25 PM [facility] REPOSITORY PHYSICIAN ASSESSMENT RECORDS : Discharge Report Event Time: 03/22/2018 15:25 : [employer]Chart[employer] Event Time: 03/22/2018 15:55 Status: Signed [facility] Oliver Cunningham [[id number]] Attending Physician 57 / M / 1960 Chart (V2b) Chart created at 03/22/2018 15:14 by Bubba Cheney Chart closed at 03/22/2018 15:24 Entry in Emergency Department at 03/22/2018 11:18 Patient Name: Oliver Cunningham Record Number: [id number] Date: 03/22/2018 15:14 Entered Department at: 03/22/2018 11:18 Patient Seen at: 03/22/2018 12:06 Historian: Patient PCP: Addison Bernard Chief Complaint:PT HAD HERNIA REPAIR SURGERY ON SATURDAY. PT REPORTS SHORTNESS OF BREATH. Triage Note reviewed and Initial Vital Signs reviewed. Temperature: 97.7 F (36.5 C). Pulse: 114. Respiratory Rate: 16. Blood-pressure: 143/75. Oxygen Saturation: 97%. History of Present Illness: 57-Year-old male presents with complaint of shortness of breath as well as persistent abdominal discomfort. Patient has chronic abdominal pain secondary to hernia with mesh in place. He states he is seen about 30 surgeons regarding this, just recently had additional hernia repair with additional mesh [facility] PATIENT NAME: OLIVER CUNNINGHAM [address] [facility] [address] MEDICAL REC #: [id number] [place] [id number] EMERGENCY DEPARTMENT REPORT EMERGENCY DEPARTMENT PHYSICIAN that was placed. He states he does not feel like this completely resolved his chronic abdominal symptoms, states these persist. He has not had any increased abdominal pain, no nausea or vomiting, no constipation or diarrhea, no bloody stools, no fevers or chills. He states he has felt somewhat more short of breath since surgery. He does have COPD, he continues to smoke, does not wear home oxygen. No chest pains, no acute cough, no other complaints at this time. Review of Systems. All other systems reviewed and negative.. Past History, Medications, Allergies, Social History and Family History reviewed in nurses note. Medications: Reviewed RN Note. REMERON 30MG TABLET - PO, LORAZEPAM 0.5MG TABLET - PO, ASPIRIN 81MG TABLET - PO, FISH OIL, GARLIC OIL Allergies: Reviewed RN Note PCN(Rash), mobic(Rash), lyrica(agitation of nerves), cymbalta(palpitations), abaugio(plugs arteries), copaxone(Rash), hydrochlorothiazide(syncope), Reglan(chest pain), trulance(Unknown), Magnesium Sulfate(BURNING), WELCHOL(ABDOMINAL PAIN) Social History: Reviewed RN Note. Family History: Reviewed RN Note Physical Examination: General: Alert; Oriented x 3. NAD HEENT: Eyes: PERRL; . Nose: Normal inspection. Oropharynx / Throat: Normal Pharynx, Moist mucous membranes. Neck: Supple; no JVD Respiratory: No Resp Distress; Breath sounds diminished in the bases, otherwise clear Cardio-Vascular: No murmur, No rub and RRR Abdomen: Normal Bowel Sounds, No Organomegaly and Soft; negative for Rebound or Guarding; Non-distended. Mild tenderness in the region of patients lower abdominal surgery. Incisions healing well, [facility] PATIENT NAME: OLIVER CUNNINGHAM [address] [facility] [address] MEDICAL REC #: [id number] [place] [address] EMERGENCY DEPARTMENT REPORT EMERGENCY DEPARTMENT PHYSICIAN no signs of infection. Remainder of abdomen nontender. Back: Non-tender Extremity: No Calf Tenderness, No edema and Normal Equal pulses; Cap refill andlt; 2 sec. Normal strength/sensation. Neurological: Alert, Oriented X3 Skin: No rash, No Petechiae, Warm and Dry BMP, information as of 03/22/2018, 11:42 am 138 --------+--------+--------andlt; 127* Anion Gap = 8 3.8 BUN/CREA: 11; CALCIUM TOTAL: 8.4 Mg/Dl CBC W/DIFF, information as of 03/22/2018, 11:55 am 94.7 / 14.8 / 11.1* andgt;------andlt; 244 / 42.6 / N:73.5 BASO ABS: 0.10 K/Cu Mm; BASOPHIL %: 0.4 %; EOS ABS: 0.00 K/Cu Mm; EOSINOPHIL %: 0.4 %; IMMATR GRAN ABS: 0.00 K/Cu Mm; IMMATURE GRAN %: 0.4 %; LYMPH %: 16.9 %; LYMPH ABS: 1.90 K/Cu Mm; MCHC: 34.7 Gm/Dl; MONO ABS: 0.90 K/Cu Mm; MONOCYTE %: 8.4 %; MPV: 9.0; NEUTROPHIL ABS: 8.20 K/Cu Mm; NRBC: 0.0 %; RBC: 4.50 M/Cu Mm; RDW: 12.7 PBNP TEST, information as of 03/22/2018, 11:55 am PBNP TEST: 65 Pg/Ml TROPONIN I POC, information as of 03/22/2018, 12:00 pm POC Trop-I: 0.00 Cardiogram: Interpreted by me. Interpretation: Sinus tachycardia, rate of 101, normal axis, no acute ST elevation, QTc 453 Comparison: No old Cardiogram available for comparison Imaging Study Obtained: CHEST PA/AP LATERAL Imaging Study Obtained: CT ANGIO (THORAX) FOR PE Imaging Study Obtained: CHEST PA/AP andamp; LATERAL, Status:Signed Report Available [facility] PATIENT NAME: OLIVER CUNNINGHAM [address] [facility] [address] [place] MEDICAL REC #: [id number] [place] [address] EMERGENCY DEPARTMENT REPORT EMERGENCY DEPARTMENT PHYSICIAN CHEST PA/AP andamp; LATERAL Ordering Physician: Bubba Cheney DO 03/22/2018 11:56 AM Chest PA and lateral: Clinical Statement: Shortness of breath and chest pressure. Comparison: Abdomen three views, 10/29/2017 FINDINGS: PA and lateral views the chest were acquired. The cardiac and mediastinal contours are within normal limits, unchanged as compared to the prior exam. No pulmonary vascular congestion, focal consolidation, pleural effusion, or pneumothorax is identified. There is pulmonary hyperinflation with apical predominant emphysema. No acute osseous abnormality. Mild degenerative endplate changes are seen in the mid to lower thoracic spine. IMPRESSION: No acute radiographic findings. Emphysema. A fax report was sent to the physician at the time of dictation. Dictated by Blood Tester Fowl: Dominik Good MD [facility] PATIENT NAME: OLIVER CUNNINGHAM [address] [facility] [address] MEDICAL REC #: [id number] [place] [address] EMERGENCY DEPARTMENT REPORT EMERGENCY DEPARTMENT PHYSICIAN Reviewed by Radiologist: Donna Thurston MD ---- Electronic Signature on File ---- Signed By: Donna Thurston MD [email or web address] Dictated: 03/22/2018 12:24 PM Signed: 03/22/2018 1:10 PM Reported By: DONNA THURSTON M.D. Imaging Study Obtained: CT ANG THOR W/POST PROC, Status:Signed Report Available CT ANG THOR W/POST PROC Ordering Physician: Bubba Cheney DO 03/22/2018 12:[address] ANGIOGRAPHY OF THE THORAX WITH MULTIPLANAR AND 3-D RECONSTRUCTIONS Clinical Statement: Shortness of breath, postoperative pain, hernia repair surgery on Comparison: Chest radiograph March 22, 2018 FINDINGS: Following the uneventful administration of 85 cc Isovue-370, CT angiography of the thorax was performed with multiplanar and 3-D reconstructions acquired separately by the radiologist on a independent workstation. There is adequate contrast opacification of the pulmonary arteries. The main pulmonary artery is normal in caliber. There is no [facility] PATIENT NAME: OL[facility]UN[facility]INGHAM [facility] [address] MEDICAL REC #: [id number] [place] [address] EMERGENCY DEPARTMENT REPORT EMERGENCY DEPARTMENT PHYSICIAN evidence for acute pulmonary emboli. The heart size is normal. There is no pericardial effusion. The thoracic aorta is normal in course and caliber with mild atherosclerotic irregularity. There is no aortic aneurysm or dissection. The great vessels enhance appropriate. The included thyroid gland and thoracic inlet structures are unremarkable. There is no mediastinal mass, fluid, or lymphadenopathy. There is no hilar adenopathy or mass. Esophagus is normal in course and caliber. The trachea and main bronchi are widely patent. The lungs are emphysematous. The lungs are clear and well-expanded. There is no infiltrate, consolidation, or pulmonary mass. There is a 6 mm noncalcified left upper lobe nodule, image #201. No pleural effusion or pneumothorax. Imaging through the upper abdomen reveals a small quantity of free intraperitoneal air most consistent with history of recent abdominal surgery. Upper abdominal images are otherwise noncontributory. [facility] PATIENT NAME: OLIVER CUNNING[address] MEDICAL REC #: [id number] [place] [address] EMERGENCY DEPARTMENT REPORT EMERGENCY DEPARTMENT PHYSICIAN There is no axillary lymphadenopathy. The chest wall structures appear appropriate for age. There are no concerning or destructive bone lesions. IMPRESSION: No acute intrathoracic process. Specifically, no evidence for acute pulmonary emboli. Emphysema. Small quantity free intraperitoneal air, most consistent with history of recent abdominal surgery. 6 mm left upper lobe nodule. Recommend follow-up chest CT in 12 months. ---- Electronic Signature on File ---- Signed By: Donna Thurston MD [email or web address] Dictated: 03/22/2018 2:04 PM Signed: 03/22/2018 2:17 PM Reported By: DONNA THURSTON M.D. Medical Decision Making After evaluation, patient placed on coupler, workup performed as above. Patient has minimal [facility] PATIENT NAME: OLIVER CUNNINGHAM [address] [facility] [facility] [address] MEDICAL REC #: [id number] [place] [address] EMERGENCY DEPARTMENT REPORT EMERGENCY DEPARTMENT PHYSICIAN leukocytosis, labs otherwise unremarkable. EKG and troponin unremarkable. Chest x-ray shows emphysema but no acute findings. CT of the chest obtained showing no acute process, no pulmonary emboli. There is a small quantity of intraperitoneal air consistent with his recent surgery. There is a 6 mm left upper lobe nodule, patient was advised of this finding and the need for follow-up in 12 months. In regard to patients long-standing chronic abdominal issues, I recommended he continue following with his surgeon. He has no complicated findings at this time, no signs of infection. In regard to his respiratory symptoms, there is no evidence of pulmonary emboli, cardiac workup unremarkable, laboratory workup unremarkable. Patient advised to stop smoking, advised to follow-up closely with his primary care physician as well as surgeon. Recommended to return if worse. Additional Information: Discussed Results, Diagnosis and Follow-Up with Patient. Clinical Impression: 1. Acute on chronic dyspnea, secondary to emphysema 2. Status post herniorrhaphy 3. Chronic abdominal pain 4. Left upper lobe nodule on CT scan, follow-up recommended Disposition: Discharged . PATRIC completed. I was the primary ED attending.. ===DISCHARGE REPORT=== : Discharge Report Event Time: 03/22/2018 15:25 Status: Draft Reasons to Return to the ER: [facility] PATIENT NAME: OLIVER CUNNINGHAM [address] [facility] [facility] [address] [place] MEDICAL REC #: [id number] [place] [address] EMERGENCY DEPARTMENT REPORT EMERGENCY DEPARTMENT PHYSICIAN You must return to the ER for any new, worsening or changing symptoms, or if you feel more ill or sick in any way. This is the most important thing to remember. Follow-up: The care you received in the ER was given on an emergency basis only, and it is often not possible to completely treat or diagnose a problem in a single ER visit. You must see your follow-up doctor for a recheck within a week unless you receive instructions with a different timeframe for follow-up. Please follow all your discharge instructions. Medications: Unless the ER doctor tells you differently, you should take all your regular medications and any new medications prescribed today. Because it is not possible for the ER doctor to review all of your medication side effects or interactions, you must review possible side effects and interactions with your pharmacist when you get your prescriptions filled. EKG and Radiology Results: A traveling clerk or radiologist will review any EKG or radiology results provided by the ER doctor. We will contact you if the results in the final EKG or radiology reports require a change in treatment. Culture Results: Cultures may have been ordered during your ER visit. We will contact you if the culture results require a change in treatment. Referrals: Most referrals to specialists come from the on-call list You should make your regular doctor aware of any referrals before you schedule the appointment so that they are aware and can make suggestions DIAGNOSIS: [facility] PATIENT NAME: OLIVER CUNNINGHAM [address] [facility] [address] MEDICAL REC #: [id number] [place] [address] EMERGENCY DEPARTMENT REPORT EMERGENCY DEPARTMENT PHYSICIAN Acute on chronic dyspnea, secondary to emphysema, Status post herniorrhaphy, Chronic abdominal pain, Left upper lobe nodule on CT scan, follow-up recommended UNLESS THE ER DOCTOR GIVES YOU OTHER INSTRUCTIONS, YOU MUST SEE YOUR FOLLOW-UP DOCTOR WITHIN 1 TO 2 DAYS FOR RECHECK. YOU MUST RETURN TO THE ER RIGHT AWAY FOR ANY OF THE FOLLOWING:Increasing painChange in the location of the painNew or increasing fever or chillsNew or increasing constipation or difficulty urinatingNew or increasing abdominal swelling or bloatingBlood appears in the stool, vomit or urineNew or increasing vomiting or diarrhea.New or increasing weakness or dizzinessEarly appendix infection is always a possibility and you must return if the pain moves to the lower right side of your abdomen On your radiology test (CT scan, Ultrasound or plain X-ray) the radiologist saw some abnormal findings that require further evaluation by your follow-up doctors. These findings are probably not related to why you came to the ER today. The ER doctor cannot know for sure whether these findings are important, or not. You must see your follow-up doctors and make them aware that you have possible incidental abnormal findings on your radiology test that require further evaluation. After careful evaluation, the doctor feels that it is OK to send you home at this time. Just because you were not admitted into the hospital today does not mean that your breathing problem may not become worse. Even very serious problems, like extreme difficulty breathing, may start suddenly. Chronic Obstructive Pulmonary Disease (known as COPD) is the medical term used for the two related conditions of emphysema and chronic bronchitis. These are chronic problems that affect the smaller air tubes in the lungs, cause permanent lung damage, and are usually the result of smoking. COPD can cause cough, wheezing, shortness of breath, fever or retractions (when the skin between the ribs gets pulled in and out while breathing). COPD can get worse [facility] PATIENT NAME: OLIVER CUNNINGHAM [address] [facility] [address] MEDICAL REC #: [id number] [place] [address] EMERGENCY DEPARTMENT REPORT EMERGENCY DEPARTMENT PHYSICIAN from infections, changes in the weather, smoking or not using your medications. Depending on your problem, the doctor may treat you with antibiotics (but not for viral infections), inhalers, aerosols, steroids or other medications. You must avoid all tobacco products. You must use all of your regular medications plus all the medications that were given to you today. UNLESS THE ER DOCTOR GIVES YOU OTHER INSTRUCTIONS, YOU MUST SEE YOUR FOLLOW-UP DOCTOR FOR RECHECK WITHIN 2 TO 3 DAYS YOU MUST RETURN TO THE ER RIGHT AWAY FOR ANY OF THE FOLLOWING:New or increasing fever or chillsIncreasing cough, shortness of breath or wheezingIncreasing retractionsNew or increasing chest pain or pressureNew or increasing swelling in the arms or legsNew or increasing problems with coughing up bloodPhlegm that looks more green-yellow or smells bad REFERRAL Addison Bernard MD (Primary Care), , fax: Please call the above number to schedule a follow-up appointment. Katy Zheng MD (General Surgery / Trauma), , fax: Please call the above number to schedule a follow-up appointment. 2-3 days MEDICATIONS We have given you these prescriptions that you must fill and start taking: None COMMENTS: [facility] PATIENT NAME: OLIVER CUNNINGHAM [address] [place] MEDICAL REC #: [id number] [place] [address] EMERGENCY DEPARTMENT REPORT EMERGENCY DEPARTMENT PHYSICIAN Patient Satisfaction: Within the first few days after your visit, you will receive an email and/or phone call regarding your visit. We value your feedback, and would appreciate it if you would take the time to complete this short survey. If you receive a call, it will be between 6p and 8p. My signature below indicates that I have received and understand the oral instructions regarding my medical problem. I also acknowledge receipt of this written instruction sheet including a list of major tests and procedures ordered during my visit. I will arrange for follow-up care as indicated by these instructions and referrals. This signed original will be kept in my medical record. Your signature below indicates consent for Case Management to contact [facility] providers in an effort to meet your ongoing healthcare needs. This will allow forcontinuity of care once you leave the Emergency Department. This exchange of informationwill include, but not be limited to, disclosure of your patient information and possible release of records. 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 MEDICAL REC #: [id number] [place] [address] EMERGENCY DEPARTMENT REPORT EMERGENCY DEPARTMENT PHYSICIAN Financial Class: MPPS TRIAGE Priority: 3 - Urgent Complaint: Shortness of Breath Stated Complaint: PT HAD HERNIA REPAIR SURGERY ON SATURDAY. PT REPORTS SHORTNESS OF BREATH. Arrival Date: 03/22/2018 11:18 Triage Date: 03/22/2018 11:36 Mode of Arrival: Ambulatory/Walk-In WC: N Language: Cypriot Transport: Walk-In BED D45 In: 03/22/2018 11:42:34 03/22/2018 11:42:34 SXM D45 (Removed From) Out: 03/22/2018 16:25:07 03/22/2018 16:25:07 CRW PROVIDERS DO Bubba Cheney Provider Contact: 03/22/2018 12:06:45 EDS End: KIMBERLEE VELAZCO Provider Contact: 03/22/2018 14:38:12 CRW End: TRIAGE HISTORY ALLERGIES Allergic To: PCN - Rash 03/22/2018 11:40 SXM Allergic To: mobic - Rash 03/22/2018 11:40 SXM [facility] PATIENT NAME: OLIVER CUNNINGHAM [address] [facility] [facility] [address] [place] MEDICAL REC #: [id number] [place] [address] EMERGENCY DEPARTMENT REPORT EMERGENCY DEPARTMENT PHYSICIAN Allergic To: lyrica - agitation of nerves 03/22/2018 11:40 SXM Allergic To: cymbalta - palpitations 03/22/2018 11:40 SXM Allergic To: abaugio - plugs arteries 03/22/2018 11:40 SXM Allergic To: copaxone - Rash 03/22/2018 11:40 SXM Allergic To: hydrochlorothiazide - syncope 03/22/2018 11:40 SXM Allergic To: Reglan - chest pain 03/22/2018 11:40 SXM Allergic To: trulance - Unknown 03/22/2018 11:40 SXM Allergic To: Magnesium Sulfate - BURNING 03/22/2018 11:40 SXM Allergic To: WELCHOL - ABDOMINAL PAIN 03/22/2018 11:40 SXM CURRENT MEDS Name: REMERON 30MG TABLET - PO 03/22/2018 12:59 CRW Freq: ONCE AT BEDTIME Name: LORAZEPAM 0.5MG TABLET - PO 03/22/2018 12:59 CRW Freq: TWICE A DAY Name: ASPIRIN 81MG TABLET - PO 03/22/2018 12:59 CRW Freq: DAILY Name: FISH OIL, GARLIC OIL 03/22/2018 12:59 CRW ILLNESS Illness: Anxiety 03/22/2018 11:40 SXM Illness: Emphysema 03/22/2018 11:40 SXM Illness: scleraderma 03/22/2018 11:40 SXM Illness: multiple sclerosis 03/22/2018 11:40 SXM PAST SURGERY HIST [facility] PATIENT NAME: OLIVER CUNNINGHAM [address] [facility] MEDICAL REC #: [id number] [place]hu[place] [address] EMERGENCY DEPARTMENT REPORT EMERGENCY DEPARTMENT PHYSICIAN Surgery: Hernia Repair 03/22/2018 11:40 SXM Surgery: Cholecystectomy 03/22/2018 11:40 SXM Surgery: lower back 03/22/2018 11:40 SXM Surgery: bilateral shoulder 03/22/2018 11:40 SXM Surgery: Tonsillectomy 03/22/2018 11:40 SXM Surgery: PARTIAL 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 03/22/2018 11:40 SXM Social History: Have you traveled in the past month? Where NO 03/22/2018 11:40 SXM IMMUNIZATIONS Immunization: Pneumonia Vaccine-no 03/22/2018 11:40 SXM Immunization: Flu Vaccine-no 03/22/2018 11:40 SXM SELF TREATMENT Aid: *No Treatment Prior to Arrival 03/22/2018 12:59 CRW [facility] PATIENT NAME: OLIVER CUNNINGHAM [address] [facility] [address] [place] MEDICAL REC #: [id number] [place] [address] EMERGENCY DEPARTMENT REPORT EMERGENCY DEPARTMENT PHYSICIAN NURSING ASSESSMENT ASSESSMENT NOTES 03/22/2018 13:01 PT IS ALERT AND ANSWERING QUESTIONS APPROPRIATELY, BREATHING IS REGULAR AND NONLABORED AT THIS TIME. PT REPORTS THAT ALL OF HIS PROBLEMS IS RELATED TO SEVERAL HERNI REPAIR. PT REPORTS THEY PUT OLD MESH ON NEW MESH AND REPORTS THAT HE HAS SO MUCH PAIN THAT HE LAYS ON HIS BACK FOR 23 HOURS A DAY. 03/22/2018 13:08 CRW TREATMENT 03/22/2018 13:08 Hourly Rounding - Rounding 03/22/2018 13:10 CRW Elimination/Toileting N Position Comfortable Y Safe Environment Y Fall Risk Change N 03/22/2018 13:08 Patient Interaction - Allergy Band on Pt. 03/22/2018 13:10 CRW 03/22/2018 13:08 Patient Interaction - Call light placed within reach. 03/22/2018 13:10 CRW 03/22/2018 13:08 Patient Interaction - Gunstock Spray Unit Adjuster/ Pulse ox/ BP cuff applied 03/22/2018 13:10 CRW 03/22/2018 13:08 Patient Interaction - Fall Risk Band on Pt. 03/22/2018 13:10 CRW 03/22/2018 13:09 Patient Interaction - Introduce self to Patient. 03/22/2018 13:10 CRW 03/22/2018 13:09 Patient Interaction - Name Band on Pt 03/22/2018 13:10 CRW 03/22/2018 13:09 Primary DOC Guide - A. Patient History 03/22/2018 13:10 CRW [facility] PATIENT NAME: OLIVER CUNNINGHAM [address] [facility] [address] 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 Fall Risk Assessment (Age andlt;65) 03/22/2018 13:10 CRW History of Falling in last 3 months? Yes (3) - Fall Prone (multiple falls) Impaired Gait? Yes (1) Mobility Assist Device Used? No (0) Fall Risk Score 1-2 Points = Low Risk. 3-4 Points = Moderate Risk. 5 or more points = High Risk. 5 Fall Score Greater andgt;= 3? Yes 03/22/2018 13:09 Patient Transport - Patient transported to [facility] by central transport. 03/22/2018 13:09 JLMB 03/22/2018 13:09 Primary DOC Guide - D. Psychosocial Assessment 03/22/2018 13:10 CRW Over the Last 2 weeks, how often have you had little interest or pleasure in doing things (0) Not at All Is Psychosocial Assessment Score 3 or more? If score is 3 or more please consult ED Navigator! No Total Psychosocial Assessment Score 0 Over the last 2 weeks, how often have you been feeling down, depressed or hopeless (0) Not at All 03/22/2018 13:10 Primary DOC Guide - E. Family Violence Assessment 03/22/2018 13:10 CRW Within the past year, has anyone ever pushed, shoved, slapped, choked, hit, punched or kicked you: No 03/22/2018 14:01 Patient Transport - Patient returned from [facility]. 03/22/2018 14:01 JLMB 03/22/2018 16:25 Admit/Discharge - Ambulated with steady gait home 03/22/2018 17:03 CRW [facility] PATIENT NAME: OLIVER CUNNINGHAM [address] [facility] [address] [place] MEDICAL REC #: [id number] [place] [address] EMERGENCY DEPARTMENT REPORT EMERGENCY DEPARTMENT PHYSICIAN Notes: PT DISCHARGED WITH VERBAL AND WRITTEN INSTRUCTOINS, MED REC, UNDERSTANDS TO RETURN TO ED OR CALL MD NEEDED, FOLLOW U WITH MD. IV D/C, CATH INTACT, BANDAGE APPLIED, NO BLEEDING MEDICATIONS IV IV Fluid: B 03/22/2018 12:53 03/22/2018 12:53 CRW Line #: 1 Fluid: Saline Lock Rate: ml/hr Location: antecubital fossa right Ndl Gauge: 20 # Attempts: 1 Notes: iv flushed without resistance IV Fluid: E 03/22/2018 16:25 03/22/2018 17:02 CRW Line #: 1 Rate: ml/hr Location: antecubital fossa right Ndl Gauge: 20 # Attempts: 1 Notes: IV D/C, CATH INTACT, BANDAGE APPLIED ,NO BLEEDING I AND O VITALS VS-ROUTINE Time: 03/22/2018 11:36 B/P: 143/75 - Right Upper Arm - Sitting - Machine Pulse: 114 - Monitor Resp: 16 Sa02: 97 Room Air Temp: 97.70 F - Oral 03/22/2018 11:40 SXM VS-Pain Time: 03/22/2018 11:36 Pain Level: 10 03/22/2018 11:40 SXM VS-GCS Time: 03/22/2018 11:36 Visual: 4 Verbal: 5 Motor: 6 GCS Total: 03/22/2018 11:40 SXM VS-HT/WT Time: 03/22/2018 11:36 Ht: 180.3 cm Stated Weight: 83.9 kg Actual 03/22/2018 11:40 SXM VS-Visual Time: 03/22/2018 11:36 03/22/2018 11:40 SXM VS-FHT Time: 03/22/2018 11:36 03/22/2018 11:40 SXM [facility] PATIENT NAME: OLIVER CUNNINGHAM [address] [facility] [address] [place] MEDICAL REC #: [id number] [place] [address] EMERGENCY DEPARTMENT REPORT EMERGENCY DEPARTMENT PHYSICIAN VS-Notes Time: 03/22/2018 11:36 MAP 99 03/22/2018 11:40 SXM VS-ROUTINE Time: 03/22/2018 12:55 B/P: 139/81 - Right Upper Arm - Lying - Machine Pulse: 94 - Monitor Resp: 20 Sa02: 95 Room Air 03/22/2018 12:56 CRW VS-Pain Time: 03/22/2018 12:55 Pain Level: 10 03/22/2018 12:56 CRW VS-GCS Time: 03/22/2018 12:55 Visual: 4 Verbal: 5 Motor: 6 GCS Total: 15 03/22/2018 12:56 CRW VS-HT/WT Time: 03/22/2018 12:55 03/22/2018 12:56 CRW VS-Visual Time: 03/22/2018 12:55 03/22/2018 12:56 CRW VS-FHT Time: 03/22/2018 12:55 03/22/2018 12:56 CRW VS-Notes Time: 03/22/2018 12:55 map 104 03/22/2018 12:56 CRW VS-ROUTINE Time: 03/22/2018 16:25 B/P: 142/85 - Left Upper Arm - Sitting - Machine Pulse: 90 - Monitor Resp: 20 Sa02: 96 Room Air 03/22/2018 17:02 CRW VS-Pain Time: 03/22/2018 16:25 03/22/2018 17:02 CRW VS-GCS Time: 03/22/2018 16:25 Visual: 4 Verbal: 5 Motor: 6 GCS Total: 15 03/22/2018 17:02 CRW VS-HT/WT Time: 03/22/2018 16:25 03/22/2018 17:02 CRW VS-Visual Time: 03/22/2018 16:25 03/22/2018 17:02 CRW VS-FHT Time: 03/22/2018 16:25 03/22/2018 17:02 CRW VS-Notes Time: 03/22/2018 16:25 map 106 03/22/2018 17:02 CRW ORDERS Discharge patient 03/22/2018 15:25 N/A Ordered: 03/22/2018 15:24 By . Other Reviewed: 03/22/2018 15:25 By . Other AWNING CRAFTSMAN ORDER: PBNPT 03/22/2018 13:05 None Ordered: 03/22/2018 13:05 Completed Time: 03/22/2018 13:05 Results Time: 03/22/2018 13:05 [facility] PATIENT NAME: OLIVER CUNNINGHAM [facility] [address] [place] MEDICAL REC #: [id number] [place] [address] EMERGENCY DEPARTMENT REPORT EMERGENCY DEPARTMENT PHYSICIAN CT chest with con for PE 03/22/2018 14:25 N/A Ordered: 03/22/2018 12:45 By Bubba Cheney Completed Time: 03/22/2018 14:25 By Bubba Cheney Indication: Shortness of Breath Noted Time: 03/22/2018 14:00 Question: Patient has history of true RCM allergy? Answer: NO AWNING CRAFTSMAN ORDER: GFRP 03/22/2018 12:27 None Ordered: 03/22/2018 12:27 Completed Time: 03/22/2018 12:27 Results Time: 03/22/2018 13:05 AWNING CRAFTSMAN ORDER: POCTROP 03/22/2018 12:16 None Ordered: 03/22/2018 12:16 Completed Time: 03/22/2018 12:16 Results Time: 03/22/2018 12:16 interpersonal communications professor 03/22/2018 13:21 N/A Ordered: 03/22/2018 11:56 By Bubba Cheney Completed Time: 03/22/2018 13:21 By Bubba Cheney Lab: Add On Test (excluding POC tests) 03/22/2018 12:02 N/A Ordered: 03/22/2018 11:56 By Bubba Cheney Noted Time: 03/22/2018 12:02 SLHB Question: Test to be added: Answer: bnpt CXR PA and lateral 03/22/2018 12:27 N/A Ordered: 03/22/2018 11:56 By Bubba Cheney Completed Time: 03/22/2018 12:27 By Bubba Cheney Indication: Shortness of Breath Noted Time: 03/22/2018 12:25 Question: How is patient transported? (A = Ambulatory, B = Bed, C = Carry, CR = Crib, P = Portable, S = Stretcher, W = Wheelchair, X = Wide Wheelchair, XT = Trauma X RM17 (ED Only)) Answer: STRETCHER O2 by cannula at 2L if SAT andlt;= 91% 03/22/2018 13:21 N/A [facility] PATIENT NAME: OLIVER CUNNINGHAM [address] [facility] [address] [place] MEDICAL REC #: [id number] [place] [address] EMERGENCY DEPARTMENT REPORT EMERGENCY DEPARTMENT PHYSICIAN Ordered: 03/22/2018 11:41 By Protocol Completed Time: 03/22/2018 13:21 By Protocol POC troponin 03/22/2018 12:31 N/A Ordered: 03/22/2018 11:41 By Protocol Completed Time: 03/22/2018 12:13 By Protocol Noted Time: 03/22/2018 11:56 DJA BMP 03/22/2018 12:27 N/A Ordered: 03/22/2018 11:41 By Protocol Completed Time: 03/22/2018 12:27 By Protocol Noted Time: 03/22/2018 11:56 DJA Results Time: 03/22/2018 13:05 CBC with diff 03/22/2018 12:25 N/A Ordered: 03/22/2018 11:41 By Protocol Completed Time: 03/22/2018 12:25 By Protocol Noted Time: 03/22/2018 11:56 DJA Results Time: 03/22/2018 12:32 EKG and most recent EKG 03/22/2018 11:59 N/A Ordered: 03/22/2018 11:41 By Protocol Completed Time: 03/22/2018 11:59 By Protocol Noted Time: 03/22/2018 11:49 DJA DISCHARGE Diagnosis: Acute on chronic dyspnea, secondary to emphysema, Status post herniorrhaphy, Chronic abdominal pain, Left upper lobe nodule on CT scan, follow-up recommended 03/22/2018 15:25 Disposition: Time: 03/22/2018 15:24 Discharge Time: 03/22/2018 16:25 Type: Discharge Condition: Stable for admission/discharge/transfer after emergency evaluation/treatment Category: *NOT APPLICABLE Referral: 03/22/2018 15:25 Admit Physician: . Other [facility] PATIENT NAME: OLIVER CUNNINGHAM [address] MEDICAL REC #: [id number] [place] [address] EMERGENCY DEPARTMENT REPORT EMERGENCY DEPARTMENT PHYSICIAN PRESCRIPTIONS CHARGES SIGNATURE Loulou VELAZCO RN CRGerri Kang RN SXM Bubba Cheney [facility] NELDA LYNN [facility] PATIENT NAME: OLIVER CUNNINGHAM [address] MEDICAL REC #: [id number] [place] [address] EMERGENCY DEPARTMENT REPORT EMERGENCY DEPARTMENT PHYSICIAN CHEST PA/AP AND Observed: 03/22/2018 Status: F Source: [facility] 12:20 PM [facility] CHEST PA/AP & LATERAL Ordering Physician: Bubba Cheney DO 03/22/2018 11:56 AM Chest PA and lateral: Clinical Statement: Shortness of breath and chest pressure. Comparison: Abdomen three views, 10/29/2017 FINDINGS: PA and lateral views the chest were acquired. The cardiac and mediastinal contours are within normal limits, unchanged as compared to the prior exam. No pulmonary vascular congestion, focal consolidation, pleural effusion, or pneumothorax is identified. There is pulmonary hyperinflation with apical predominant emphysema. No acute osseous abnormality. Mild degenerative endplate changes are seen in the mid to lower thoracic spine. IMPRESSION: No acute radiographic findings. Emphysema. A fax report was sent to the physician at the time of dictation. Dictated by Blood Tester Fowl: Dominik Good MD Reviewed by Radiologist: Donna Thurston MD ---- Electronic Signature on File ---- Signed By: Donna Thurston MD [email or web address] Dictated: 03/22/2018 12:24 PM Signed: 03/22/2018 1:10 PM Reported By: DONNA THURSTON M.D. Signed By: DONNA THURSTON M.D. CT ANG THOR W/POST Observed: 03/22/2018 Status: F Source: [facility] PROC 12:20 PM [facility] CT ANG THOR W/POST PROC Ordering Physician: Bubba Cheney DO 03/22/2018 12:[address] ANGIOGRAPHY OF THE THORAX WITH MULTIPLANAR AND 3-D RECONSTRUCTIONS Clinical Statement: Shortness of breath, postoperative pain, hernia repair surgery on Comparison: Chest radiograph March 22, 2018 FINDINGS: Following the uneventful administration of 85 cc Isovue-370, CT angiography of the thorax was performed with multiplanar and 3-D reconstructions acquired separately by the radiologist on a independent workstation. There is adequate contrast opacification of the pulmonary arteries. The main pulmonary artery is normal in caliber. There is no evidence for acute pulmonary emboli. The heart size is normal. There is no pericardial effusion. The thoracic aorta is normal in course and caliber with mild atherosclerotic irregularity. There is no aortic aneurysm or dissection. The great vessels enhance appropriate. The included thyroid gland and thoracic inlet structures are unremarkable. There is no mediastinal mass, fluid, or lymphadenopathy. There is no hilar adenopathy or mass. Esophagus is normal in course and caliber. The trachea and main bronchi are widely patent. The lungs are emphysematous. The lungs are clear and well-expanded. There is no infiltrate, consolidation, or pulmonary mass. There is a 6 mm noncalcified left upper lobe nodule, image #201. No pleural effusion or pneumothorax. Imaging through the upper abdomen reveals a small quantity of free intraperitoneal air most consistent with history of recent abdominal surgery. Upper abdominal images are otherwise noncontributory. There is no axillary lymphadenopathy. The chest wall structures appear appropriate for age. There are no concerning or destructive bone lesions. IMPRESSION: No acute intrathoracic process. Specifically, no evidence for acute pulmonary emboli. Emphysema. Small quantity free intraperitoneal air, most consistent with history of recent abdominal surgery. 6 mm left upper lobe nodule. Recommend follow-up chest CT in 12 months. ---- Electronic Signature on File ---- Signed By: Donna Thurston MD [email or web address] Dictated: 03/22/2018 2:04 PM Signed: 03/22/2018 2:17 PM Reported By: DONNA THURSTON M.D. Signed By: DONNA THURSTON M.D. EKG Observed: 03/22/2018 Status: UNK Source: [facility] 12:20 PM [facility] [place] REPOSITORY Procedure Date and Time: 03/22/18 1149 Test Reason : STAT Blood Pressure : / mmHG Vent. Rate : 101 BPM Atrial Rate : 101 BPM P-R Int : 128 ms QRS Dur : 102 ms QT Int : 350 ms P-R-T Axes : 081 089 049 degrees QTc Int : 453 ms Sinus tachycardia Otherwise normal ECG When compared with ECG of 03-MAR-2018 16:39, No significant change was found Confirmed by CHANO DUVALL A. ([id number]) on 03/23/2018 2:58:46 PM Referred By: Emergency [facility] Confirmed By:Flaco DUVALL M.D.FACC MAnshulD. DDandT: 03/22/18 1149 TDandT: [facility] PATIENT NAME: OL[facility]UNNINGHAM [facility] MEDICAL REC #: [id number] [place] [address] ADMIT DATE: DISCHARGE DATE: 03/22/18 ATTENDING PHY: Bubba Cheney DO ELECTROCARDIOGRAM REPORT CLB cc: [facility] PATIENT NAME: OL[facility] CUNNINGHAM [facility] MEDICAL REC #: [id number] [place] [address] ADMIT DATE: DISCHARGE DATE: 03/22/18 ATTENDING PHY: Bubba Cheney DO ELECTROCARDIOGRAM REPORT TROPONIN I POC Collected: 03/22/2018 Status: F Source: [facility] 12:00 PM [facility] REPOSITORY TYPE CODE TESTS RESULT OUT OF RANGE REFERENCE UNITS LAB L550.57046 0.0-0.06 NG/ML Normal TROPONIN I POC 0.00 Result Comment: 0.0 - 0.06 NG/ML - NON- DIAGNOSTIC (REFERENCE RANGE) 0.07 - 0.59 NG/ML - INDETERMINATE Greater than or equal to 0.6 NG/ML - INDICATIVE OF MYOCARDIAL DAMAGE CBC W/DIFF Collected: 03/22/2018 Status: F Source: [facility] 11:55 AM [facility] REPOSITORY Order Comment: [place]: M TYPE CODE TESTS RESULT OUT OF RANGE REFERENCE UNITS LAB L200.56303 4.5-11.0 K/CU MM High WBC 11.1 LAB L200.19439 4.50-6.00 M/CU MM RBC Normal 4.50 LAB L200.26268 13.5-17.5 G/DL HGB Normal 14.8 LAB L200.54740 41.0-53.0 % HCT Normal 42.6 LAB L200.10291 80.0-99.0 fl MCV Normal 94.7 LAB L200.20481 32.0-36.0 GM/DL MCHC Normal 34.7 LAB L200.40099 11-14.5 RDW Normal 12.7 LAB L200.11845 9.4-12.4 Low MPV 9.0 LAB L200.04112 150-450 K/CU MM PLT Normal 244 LAB L200.02256 45-75 % NEUTROPHILS Normal % 73.5 LAB L200.13601 Less than 2 % IMMATURE Normal GRAN % 0.4 LAB L200.42649 20-40 % Low LYMPH % 16.9 LAB L200.13278 2-10 % MONOCYTE % Normal 8.4 LAB L200.59884 0-5 % EOSINOPHIL Normal % 0.4 LAB L200.01156 0-2 % BASOPHIL % Normal 0.4 LAB L200.70834 2.0-8.3 K/CU MM NEUTROPHIL Normal ABS 8.20 LAB L200.88719 Less than 2 K/CU MM IMMATR GRAN Normal ABS 0.00 LAB L200.85090 0.9-4.4 K/CU MM LYMPH ABS Normal 1.90 LAB L200.48378 0.1-1.1 K/CU MM MONO ABS Normal 0.90 LAB L200.20985 0-0.5 K/CU MM EOS ABS Normal 0.00 LAB L200.21536 0-0.2 K/CU MM BASO ABS Normal 0.10 LAB L200.61540 Less than 1 % NRBC Normal 0.0 Performed By: #### L200.23477 #### [facility] [address] [place] [address] BMP Collected: 03/22/2018 Status: F Source: [facility] 11:55 AM [facility] REPOSITORY Order Comment: [place]: TYPE CODE TESTS RESULT OUT OF RANGE REFERENCE UNITS LAB L500.15315 136-145 MMOL/L Normal NA 138 LAB L500.47279 3.5-5.1 MMOL/L Normal K 3.8 Result Comment: Moderate Hemolysis, Result may be falsely increased. LAB L500.03075 98-107 MMOL/L Normal CL 103 LAB L500.98937 21-32 MMOL/L Normal CO2 27 LAB L500.44185 5-16 MMOL/L Normal AGAP 8 LAB L500.62064 70-100 MG/DL High GLU 127 Result Comment: 70-100- Normal Fasting; 100-125 Impaired Fasting; greater than 126 on more than one result- Diabetes. ADA guidelines. Results may be falsely elevated after the administration of Sulfapyridine. Results may be falsely depressed after the administration of Sulfasalazine. LAB L500.51364 7-26 MG/DL Normal BUN 7 LAB L500.46896 0.670-1.170 MG/DL Low CREAT 0.665 Result Comment: Patients receiving either N-Acetylcysteine (NAC) or Metamizole prior to venipuncture, may have falsely depressed results. LAB L500.62542 15-24 Low BUN/CREA 11 LAB L500.05607 8.5-10.1 MG/DL Low CALCIUM TOTAL 8.4 Performed By: #### L500.98192, L500.60378, L500.35961 #### [facility] [address] [place] [address] GFR EST Collected: 03/22/2018 Status: F Source: [facility] 11:55 AM [facility] REPOSITORY Order Comment: [place]: M TYPE CODE TESTS RESULT OUT OF RANGE REFERENCE UNITS LAB L500.35778 ML/MIN Normal IF non-AFR Greater than AMER 60 LAB L500.25297 ML/MIN Normal IF Greater than AMER 60 Performed By: #### L500.23732, L500.85940, L500.30488 #### [facility] [address] [place] [address] PBNP TEST Collected: 03/22/2018 Status: F Source: [facility] 11:55 AM [facility] REPOSITORY Order Comment: [place]: M TYPE CODE TESTS RESULT OUT OF RANGE REFERENCE UNITS LAB L500.51078 0-900 PG/ML Normal PBNP TEST 65 Result Comment: NT-proBNP results of less than 300 pg/ml effectively rules out acute congestive heart failure with 99% negative predictive value. Performed By: #### L500.50915, L500.99775, L500.66178 #### [facility] [address] [place] [address] OR Observed: 03/20/2018 Status: UNK Source: [facility] 10:14 AM [facility] REPOSITORY DATE OF SERVICE: 03/20/2018 PREOPERATIVE DIAGNOSIS: Bilateral reducible, recurrent inguinal hernias. OPERATION: Laparoscopic preperitoneal repair of bilateral reducible, recurrent inguinal hernias with mesh (Bard 3D Max medium size mesh). SURGEON: Katy Zheng MD APPEALS COURT ASSOCIATE JUSTICE: ANESTHESIA: General endotracheal. HISTORY: Patient is a 57-year-old white male who has had previous bilateral inguinal hernias that have recurred. The patient has had a repair on both sides done as open approach, the left side with a palpable mesh that is causing discomfort extending down to the proximal thigh and left scrotum. The patient desires to have repair of both hernias. He understands the neuropathic pain that is present, especially on the left side, may be chronic in nature, and repair of the hernias may not alleviate the neuropathic pain he feels. The patient was advised that most likely the previously placed mesh would not be able to be removed with the surgery proposed, and the operation proposed is repair of the hernias laparoscopically as a preperitoneal approach with mesh, with a possibility of open conversion if unable to be performed technically in that manner. The operation, the possibility of conversion to open procedure, the use of mesh, the use of general anesthesia, the possibility of recurrence, and the probable continuation of his existing neuropathic pain, especially on the left side, were discussed and informed consent was obtained. DESCRIPTION OF PROCEDURE: The patient was in the supine position on the table. Following satisfactory administration of general endotracheal anesthesia, patient was prepped and draped in sterile fashion for abdominal surgery. The previously known hernias were again marked. A Hoffman catheter was introduced following prepping of the abdominal wall and draping. Local anesthetic was applied below the umbilicus, and a small transverse incision was made. The incision was carried down to the anterior sheath of the rectus muscle, which was incised. The expanding balloon port was inserted down the rectus sheath to the level of the pubic bone, where the balloon was insufflated, held in place for 2 minutes, deflated and removed. A nice separation had occurred between the anterior and posterior sheaths of the rectus muscle. The structural balloon port was then placed in the same opening. The small balloon was insufflated. The preperitoneal space was then inflated with CO2, and again nice separation had been formed between the anterior and posterior sheaths of the rectus muscle, exposing the right and left epigastric vessels as well as the pubic bone. Two 5-mm ports were placed in lower midline under direct visualization. The right side was first addressed, where the soft tissue was swept off the anterior [facility] PATIENT NAME: OLIVER CUNNINGHAM [address] [address] MEDICAL REC #: [id number] [place] [address] ADMIT DATE: DISCHARGE DATE: OPERATIVE REPORT ATTENDING PHY: Katy Zheng MD and lateral abdominal wall musculature, exposing the spermatic cord. There was a broad, flat hernia sac attached to the spermatic cord proximally. It was swept off the spermatic cord, brought down to the preperitoneal floor. As it was a broad-based hernia sac, it was not ligated or excised. A medium size 3D mesh was rolled up, passed down through the port, placed into the right preperitoneal space. There was no direct hernia component. This was strictly indirect, recurrent inguinal hernia. The mesh was appropriately oriented. It was placed across the external ring where it was anchored at 3 points: The pubic bone medially, to the lateral abdominal wall musculature, and to the anterior abdominal wall musculature with a ProTack device. There was no bleeding noted. There was no impingement upon the spermatic cord. The patient's previous hernia repair consisted of a thin film of fibrotic tissue and, what was felt to be possibly to the other side of it, mesh, but the mesh, itself, was not visualized. The left side was then addressed where, as the soft tissue was swept off the anterolateral abdominal musculature, a similar hernia sac was noted. It was, however, attached to what appeared to be a mesh plug device where it was able to be dissected off that same device with endoscissors. The hernia sac was freed up. It had not been violated. It was brought back to the preperitoneal floor. The mesh plug, itself, was protruding into the external ring, and a portion of it was firmly adherent to the left femoral vein. It was felt that any attempt to dislodge the mesh would lead to an avulsion of the femoral vein, and this also explained the patient's pain in the left groin. The vein, itself, was not impinged upon or occluded by this device, and it was felt that the most prudent course is not to disturb the previously placed, well-anchored device. As the hernia sac did extend lateral to this device down through external ring, this was felt to be an indirect hernia that had recurred through the external ring. The left-sided medium 3D Max mesh was brought into the port, unfurled, and placed over the external ring and anchored at 3 points: The pubic bone medially, to the lateral abdominal wall musculature, and to the anterior abdominal wall musculature, covering the external ring with good overlap and without impinging upon the spermatic cord or the femoral vein. The preperitoneal space on both sides was sprayed with 20 mL of 0.5% Marcaine with epinephrine for postoperative analgesia. There was essentially no bleeding from the surgery. No irrigation was required. The preperitoneal space was deflated of its carbon dioxide. The ports were removed under direct visualization. The largest port site below the umbilicus was closed at the fascial level with 0 Vicryl sutures. All 3 ports sites were infiltrated with local anesthetic at the skin level and closed at the skin level with 4-0 Vicryl subcuticular closures. Sterile dressings were applied. The Hoffman catheter was removed. The patient was extubated and sent back to recovery room in good condition. Instrument, sponge and needle counts were correct at the time of closure. Blood loss was less than 10 mL, and no specimens were submitted to pathology. The patient was eventually discharged from same- day surgery in good condition. [facility] PATIENT NAME: OLIVER CUNNINGHAM [address] [facility] [address] MEDICAL REC #: [id number] [place] [address] ADMIT DATE: DISCHARGE DATE: OPERATIVE REPORT ATTENDING PHY: Katy Zheng MD Katy Zheng MD /[id number] [facility] File#: [id number] Verified/Reviewed by 03/27/18 Francisca CARPENTER [facility] PATIENT NAME: OLIVER CUNNINGHAM [address] [facility] [address] MEDICAL REC #: [id number] [place] [address] ADMIT DATE: DISCHARGE DATE: OPERATIVE REPORT ATTENDING PHY: Katy Zheng MD XR ABDOMEN AP Observed: 03/10/2018 Status: F Source: [facility] [email or web address] 1:59 PM [facility]ATION REPOSITORY ORIGINAL XR ABDOMEN AP CLINICAL STATEMENT: pain. COMPARISON: 03/27/2017 FINDINGS: Normal bowel gas pattern. No visible free air. No organomegaly. Prior cholecystectomy is present. No acute bone findings. IMPRESSION: Unremarkable abdomen. Interpreted By: Ger Nails MD Preliminary Report By: Ger Nails MD Electronically Signed By: Ger Nails MD Dictated Date: 03/10/2018 2:22:33 PM Prelim Date: 03/10/2018 2:22:33 PM Sign Date: 03/10/2018 2:23:01 PM 12 LEAD ELECTROCARDIOGRAM Observed: 03/07/2018 Status: F Source: [place] 9:16 AM [facility] REPOSITORY [facility] Cardiovascular Services [address] [place] [address] 12 Lead EKG 02/26/18 1516 MR#: [id number] Acct: [id number] Name: OLIVER CUNNINGHAM Rep #: [id number] : 1960 57 From: Dominic Karimi MD Attending Dr: Status: DEP ER Ordering Dr: Bernard Krishnamurthy MD Date: 02/26/18 Location: ED Sex: M C Admitted: Test Reason : DYSRHYTHMIA Blood Pressure : / mmHG Vent. Rate : 090 BPM Atrial Rate : 090 BPM P-R Int : 122 ms QRS Dur : 098 ms QT Int : 346 ms P-R-T Axes : 078 089 059 degrees QTc Int : 423 ms Normal sinus rhythm Normal ECG Confirmed by DOMINIC KARIMI MD ([id number]), medical editor ASHLEY GARCIA ([id number]) on 02/28/2018 12:03:13 PM Referred By: RICKEY Confirmed By:DOMINIC KARIMI MD 02/28/18 1203 Date Dominic Karimi MD CC: No Primary Care Physician; Ace Krishnamurthy MD Signed 12 LEAD ELECTROCARDIOGRAM Observed: 03/07/2018 Status: F Source: [place] 9:12 AM [facility] REPOSITORY [facility] Cardiovascular Services [address] [place] [id number] 12 Lead EKG 02/20/18 0935 MR#: [id number] Acct: [id number] Name: OLIVER CUNNINGHAM Rep #: [id number] : 1960 57 From: Dominic Karimi MD Attending Dr: Status: DEP ER Ordering Dr: Kathleen Bunn MD Date: 02/20/18 Location: ED Sex: M C Admitted: Test Reason : CP Blood Pressure : / mmHG Vent. Rate : 113 BPM Atrial Rate : 113 BPM P-R Int : 114 ms QRS Dur : 094 ms QT Int : 328 ms P-R-T Axes : 082 090 049 degrees QTc Int : 449 ms Sinus tachycardia Rightward axis Nonspecific ST abnormality Abnormal ECG Confirmed by DOMINIC KARIMI MD ([id number]), medical editor ASHLEY GARCIA ([id number]) on 02/26/2018 11:28:47 AM Referred By: ULISSES Confirmed By:DOMINIC KARIMI MD 02/26/18 1128 Date Dominic Karimi MD CC: MD Mcarthur Jwcammieyehe; No Primary Care Physician Signed ER Observed: 03/03/2018 Status: UNK [facility] [place] REPOSITORY This is a preliminary report only, as the practitioner review and authentication has not occurred. ER Observed: 03/03/2018 Status: UNK Source: [place] 7:47 PM [facility] REPOSITORY PHYSICIAN ASSESSMENT [employer] Patient: OLIVER CUNNINGHAM Sex: M : 1960 Age: 57 yr Account No: [id number] Registration Date: 16:03/03/2018 Address: [address] [facility] [facility] Address: [place] [address] REGISTRATION ED Number: [id number] Marital Status: D Financial Class: MPPS TRIAGE Priority: 3 - Urgent Complaint: Chest Pain Stated Complaint: Pt complains of right side groin pain that goes into abd/and chest and bilateral arms. Arrival Date: 03/03/2018 16:21 Triage Date: 03/03/2018 16:27 Mode of Arrival: *Privately Owned Vehicle WC: N Language: Cypriot BED [facility] PATIENT NAME: OLIVER CUNNINGHAM [address] [facility] [address] MEDICAL REC #: [id number] [place] [address] EMERGENCY DEPARTMENT REPORT EMERGENCY DEPARTMENT PHYSICIAN TRIAGE HISTORY ALLERGIES Allergic To: PCN - Rash 03/03/2018 16:29 [facility] Allergic To: mobic - Rash 03/03/2018 16:29 [facility] Allergic To: lyrica - agitation of nerves 03/03/2018 16:29 [facility] Allergic To: cymbalta - palpitations 03/03/2018 16:29 [facility] Allergic To: abaugio - plugs arteries 03/03/2018 16:29 [facility] Allergic To: copaxone - Rash 03/03/2018 16:29 [facility] Allergic To: hydrochlorothiazide - syncope 03/03/2018 16:29 [facility] Allergic To: Reglan - chest pain 03/03/2018 16:29 [facility] Allergic To: trulance - Unknown 03/03/2018 16:29 [facility] Allergic To: Magnesium Sulfate - BURNING 03/03/2018 16:29 [facility] Allergic To: WELCHOL - ABDOMINAL PAIN 03/03/2018 16:29 [facility] ILLNESS Illness: Anxiety 03/03/2018 16:29 [facility] Illness: multiple sclerosis 03/03/2018 16:29 [facility] Illness: scleraderma 03/03/2018 16:29 [facility] Illness: Emphysema 03/03/2018 16:29 [facility] PAST SURGERY HIST Surgery: Hernia Repair 03/03/2018 16:29 [facility] PATIENT NAME: OLIVER CUNNINGHAM [address] [address] MEDICAL REC #: [id number] [place] [address] EMERGENCY DEPARTMENT REPORT EMERGENCY DEPARTMENT PHYSICIAN Surgery: Cholecystectomy 03/03/2018 16:29 [facility] Surgery: lower back 03/03/2018 16:29 [facility] Surgery: bilateral shoulder 03/03/2018 16:29 [facility] Surgery: Tonsillectomy 03/03/2018 16:29 [facility] Surgery: PARTIAL AMPUTATION RIGHT 3RD andamp; 4TH FINGERS 03/03/2018 16:29 [facility] PAST SOCIAL HIST Social History: Communicates without difficulty 03/03/2018 16:29 [facility] Social History: Lives with family or significant other 03/03/2018 16:29 [facility] Social History: Alcohol - None 03/03/2018 16:29 [facility] Social History: Recreational Drugs - None 03/03/2018 16:29 [facility] Social History: Alcohol - Occasional- 03/03/2018 16:29 [facility] Social History: Smoker-1/2 PPD 03/03/2018 16:29 [facility] Social History: Denies Domestic Violence 03/03/2018 16:29 [facility] Social History: Denies thoughts of self harm. 03/03/2018 16:29 [facility] Social History: Have you traveled in the past month? Where NO 03/03/2018 16:29 [facility] IMMUNIZATIONS Immunization: Pneumonia Vaccine-no 03/03/2018 16:29 [facility] Immunization: Flu Vaccine-no 03/03/2018 16:29 [facility] PATIENT NAME: OLIVER CUNNINGHAM [address] [facility] [address] MEDICAL REC #: [id number] [place] [address] EMERGENCY DEPARTMENT REPORT EMERGENCY DEPARTMENT PHYSICIAN NURSING ASSESSMENT ASSESSMENT NOTES TREATMENT MEDICATIONS IV I AND O VITALS VS-ROUTINE Time: 03/03/2018 16:37 B/P: 143/84 - *Left Forearm - Lying - Machine Pulse: 104 - Monitor Resp: 18 Sa02: 96 Room Air Temp: 98.20 F - Oral 03/03/2018 16:38 [facility] VS-Pain Time: 03/03/2018 16:37 Pain Level: 10 03/03/2018 16:38 [facility] VS-GCS Time: 03/03/2018 16:37 Visual: 4 Verbal: 5 Motor: 6 GCS Total: 15 03/03/2018 16:38 [facility] VS-HT/WT Time: 03/03/2018 16:37 Weight: 183 lbs Stated 03/03/2018 16:38 [facility] VS-Visual Time: 03/03/2018 16:37 03/03/2018 16:38 [facility] VS-FHT Time: 03/03/2018 16:37 03/03/2018 16:38 [facility] VS-Notes Time: 03/03/2018 16:37 M109 03/03/2018 16:38 [facility] ORDERS LBE (Left Before Exam) 03/03/2018 19:48 N/A Ordered: 03/03/2018 19:48 By Deneen Hutchinson [facility] PATIENT NAME: OLIVER CUNNINGHAM [address] [facility] [address] MEDICAL REC #: [id number] [place] [address] EMERGENCY DEPARTMENT REPORT EMERGENCY DEPARTMENT PHYSICIAN AWNING CRAFTSMAN ORDER: GFRP 03/03/2018 16:57 None Ordered: 03/03/2018 16:57 Completed Time: 03/03/2018 16:57 Results Time: 03/03/2018 16:57 AWNING CRAFTSMAN ORDER: POCTROP 03/03/2018 16:57 None Ordered: 03/03/2018 16:57 Completed Time: 03/03/2018 16:57 Results Time: 03/03/2018 16:57 BMP 03/03/2018 16:57 N/A Ordered: 03/03/2018 16:29 By Protocol Completed Time: 03/03/2018 16:57 By Protocol Noted Time: 03/03/2018 16:35 [facility] Results Time: 03/03/2018 16:57 CBC with diff 03/03/2018 16:44 N/A Ordered: 03/03/2018 16:29 By Protocol Completed Time: 03/03/2018 16:44 By Protocol Noted Time: 03/03/2018 16:35 [facility] Results Time: 03/03/2018 16:44 EKG and most recent EKG 03/03/2018 16:43 N/A Ordered: 03/03/2018 16:29 By Protocol Completed Time: 03/03/2018 16:42 By Protocol Noted Time: 03/03/2018 16:39 KPW O2 by cannula at 2L if SAT andlt;= 91% 03/03/2018 16:29 N/A Ordered: 03/03/2018 16:29 By Protocol POC troponin 03/03/2018 16:35 N/A Ordered: 03/03/2018 16:29 By Protocol Noted Time: 03/03/2018 16:35 [facility] DISCHARGE Diagnosis: LWT 0 03/03/2018 19:48 Disposition: Time: 03/03/2018 19:47 Discharge Time: 03/03/2018 19:47 Type: LBE [facility] PATIENT NAME: OLIVER CUNNINGHAM [address] [facility] [address] MEDICAL REC #: [id number] [place] [address] EMERGENCY DEPARTMENT REPORT EMERGENCY DEPARTMENT PHYSICIAN Condition: LBE Category: *NOT APPLICABLE PT CALLED X 2 1922, 1944 NO ANSWER LBE Referral: 03/03/2018 19:48 RCB PRESCRIPTIONS CHARGES SIGNATURE Deneen Hutchinson Tech3 RCB BART JASON RN [facility] BHUMIKA LINDSEY KPW [facility] PATIENT NAME: OILVER CUNNINGHAM Dr[address] MEDICAL REC #: [id number] [place] [address] EMERGENCY DEPARTMENT REPORT EMERGENCY DEPARTMENT PHYSICIAN EKG Observed: 03/03/2018 Status: UNK Source: [facility] 5:33 PM [facility]ENTER [place] REPOSITORY Procedure Date and Time: 03/03/181638 Test Reason : STAT Blood Pressure : / mmHG Vent. Rate : 121 BPM Atrial Rate : 121 BPM P-R Int : 116 ms QRS Dur : 092 ms QT Int : 310 ms P-R-T Axes : 080 089 062 degrees QTc Int : 440 ms Sinus tachycardia Otherwise normal ECG When compared with ECG of 22-NOV-2017 19:33, No significant change was found Confirmed by CHANO UDVALL A. ([id number]) on 03/04/2018 7:59:44 AM Referred By: Emergency Zack Cox Confirmed By:Flaco DUVALL M.D.FACC [place] DDandT: 03/03/181638 TDandT: [facility] PATIENT NAME: OL[facility]UN[facility]HAM [facility] MEDICAL REC #: [id number] [place] [address] ADMIT DATE: DISCHARGE DATE: 03/03/18 ATTENDING PHY: Zack Cox,Emergency Physi ELECTROCARDIOGRAM REPORT CLB cc: [facility] PATIENT NAME: OLIVER CUNNINGHAM Dr[address] MEDICAL REC #: [id number] [place] [address] ADMIT DATE: DISCHARGE DATE: 03/03/18 ATTENDING PHY: Stk Cnty,Emergency Physi ELECTROCARDIOGRAM REPORT TROPONIN I POC Collected: 03/03/2018 Status: F Source: [facility] 4:39 PM [facility]ENTER [place] REPOSITORY TYPE CODE TESTS RESULT OUT OF RANGE REFERENCE UNITS LAB L550.26906 0.0-0.06 NG/ML Normal TROPONIN I POC 0.00 Result Comment: 0.0 - 0.06 NG/ML - NON- DIAGNOSTIC (REFERENCE RANGE) 0.07 - 0.59 NG/ML - INDETERMINATE Greater than or equal to 0.6 NG/ML - INDICATIVE OF MYOCARDIAL DAMAGE CBC W/DIFF Collected: 03/03/2018 Status: F Source: [facility] 4:34 PM [facility] REPOSITORY Order Comment: [place]: TYPE CODE TESTS RESULT OUT OF RANGE REFERENCE UNITS LAB L200.74841 4.5-11.0 K/CU MM WBC Normal 10.6 LAB L200.95352 4.50-6.00 M/CU MM RBC Normal 4.69 LAB L200.59010 13.5-17.5 G/DL HGB Normal 15.4 LAB L200.30906 41.0-53.0 % HCT Normal 44.5 LAB L200.35664 80.0-99.0 fl MCV Normal 94.9 LAB L200.09351 32.0-36.0 GM/DL MCHC Normal 34.6 LAB L200.85574 11-14.5 RDW Normal 13.2 LAB L200.17727 9.4-12.4 Low MPV 8.4 LAB L200.67480 150-450 K/CU MM PLT Normal 264 LAB L200.58023 45-75 % NEUTROPHILS Normal % 68.2 LAB L200.99201 Less than 2 % IMMATURE Normal GRAN % 0.3 LAB L200.24017 20-40 % LYMPH % Normal 22.3 LAB L200.17016 2-10 % MONOCYTE % Normal 8.2 LAB L200.09493 0-5 % EOSINOPHIL Normal % 0.4 LAB L200.67161 0-2 % BASOPHIL % Normal 0.6 LAB L200.64421 2.0-8.3 K/CU MM NEUTROPHIL Normal ABS 7.20 LAB L200.91877 Less than 2 K/CU MM IMMATR GRAN Normal ABS 0.00 LAB L200.18469 0.9-4.4 K/CU MM LYMPH ABS Normal 2.40 LAB L200.62754 0.1-1.1 K/CU MM MONO ABS Normal 0.90 LAB L200.32259 0-0.5 K/CU MM EOS ABS Normal 0.00 LAB L200.51373 0-0.2 K/CU MM BASO ABS Normal 0.10 LAB L200.31377 Less than 1 % NRBC Normal 0.0 Performed By: #### L200.09823 #### [facility]OR[facility] [address] [place] [address] BMP Collected: 03/03/2018 Status: F Source: [facility] 4:34 PM [facility] REPOSITORY Order Comment: [place]: M TYPE CODE TESTS RESULT OUT OF RANGE REFERENCE UNITS LAB L500.32880 136-145 MMOL/L Normal NA 136 LAB L500.71777 3.5-5.1 MMOL/L Normal K 4.0 LAB L500.31459 98-107 MMOL/L Normal CL 102 LAB L500.72831 21-32 MMOL/L Normal CO2 26 LAB L500.81530 5-16 MMOL/L Normal AGAP 8 LAB L500.53836 70-100 MG/DL High GLU 114 Result Comment: 70-100- Normal Fasting; 100-125 Impaired Fasting; greater than 126 on more than one result- Diabetes. ADA guidelines. Results may be falsely elevated after the administration of Sulfapyridine. Results may be falsely depressed after the administration of Sulfasalazine. LAB L500.74402 7-26 MG/DL Normal BUN 7 LAB L500.77244 0.670-1.170 MG/DL Low CREAT 0.639 Result Comment: Patients receiving either N-Acetylcysteine (NAC) or Metamizole prior to venipuncture, may have falsely depressed results. LAB L500.41596 15-24 Low BUN/CREA 11 LAB L500.96750 8.5-10.1 MG/DL Normal CALCIUM TOTAL 8.5 Performed By: #### L500.40902, L500.30140 #### [facility] [address] [place] [address] GFR EST Collected: 03/03/2018 Status: F Source: [facility] 4:34 PM [facility] REPOSITORY Order Comment: [place]: M TYPE CODE TESTS RESULT OUT OF RANGE REFERENCE UNITS LAB L500.02553 ML/MIN Normal IF non-AFR Greater than AMER 60 LAB L500.55402 ML/MIN Normal IF Greater than AMER 60 Performed By: #### L500.93126, L500.52283 #### [facility] [address] [place] [id number] # [phone] EMERGENCY DEPARTMENT Observed: 02/26/2018 Status: F Source: [place] SUMMARY 3:46 PM [facility] REPOSITORY [facility] Medical Records Department [address] [place] [address] Emergency Department Summary 02/26/18 1542 MR#: [id number] Acct: [id number] Name: OLIVER CUNNINGHAM Rep #: [id number] : 1960 57 From: Bernard Krishnamurthy MD PCP: OUT OF TOWN DOCTOR Status: REG ER - ER Visit Summary Date of Service: 02/26/18 Chief Complaint: Chronic pain and cough History of Present Illness: The patient is a 57 M with a history of chronic pain all over his entire body and ever since he took an MS medication approximately 3 years ago. He has been dealing with this every day for 3 years. There has been no change in the severity or character. He states that he has been worked up multiple times and has seen several different specialist for this. No conclusive cause has been found. He most recently was worked up here and then went to [facility] and received another workup. He has been following with his MS specialist as well and had an recent MRI of his brain. Symptoms have basically been unchanged. He states that the reason he came in today is because he is now coughing and bringing up sputum. He is concerned that he is developing bronchitis. He has chest pain as well but this is chronic and he assures me that it is unchanged in character or severity over several years. No exertional chest pain, diaphoresis, or dyspnea. No lower extremity swelling or history of DVT. Physical Examination: Vital signs are within normal limits. He is not in distress. Neck is supple. Heart tones are regular and without murmur. Lungs are clear bilaterally. Abdomen is soft and nontender. He has no focal or lateralizing neuro findings. Test Results: EKG is unremarkable. Emergency Department Course and Treatment: This is a chronic issue. No new symptoms. He looks quite well. He had an extensive workup here recently as well as at the [facility]. I am not certain what the cause of this chronic pain is it does not appear to be life-threatening. I did check an EKG but he assures me that his chest pain is chronic as well. I do not feel he will benefit from further laboratory studies or imaging at this time given his well appearance. He does feel that he is developing a bronchitis and states that he has had a productive cough for the last 5 days or so. His lungs are clear and his pulse oximetry is normal. He does not have a fever. He feels strongly about at least trying antibiotics for this which I think is reasonable. I will start him on doxycycline. Treatment Plan: We will follow up closely with his specialist and return if worse Disposition: Home stable Impression: Chronic pain, subsequent encounter, lower respiratory tract infection This note was generated with [employer] dictation software. It may contain incorrect words, spelling, and punctuation that were not noted in review of the chart prior to signing ED Disposition - Plan for ED Patient: Chief Complaint: Other, Pain/Inj Instructions: ED Chronic Pain Management, Acute Bronchitis Prescriptions: Doxycycline Monohydrate 100 mg PO BID #14 capsule Referrals: [facility] Doctor,Out of [Primary Care Provider] - What to do if you have Problems For any increased pain, shortness of breath, bleeding, nausea or vomiting, chest pain, or any unexpected problems, contact your Primary Care Provider. Call [facility] ([phone]) or report to the closest Emergency Room. Call 911 if necessary. 02/26/18 1546 <Electronically signed by Bernard Krishnamurthy MD> Date Bernard Krishnamurthy MD Cosigner Signature (If Indicated): Date CC: OUT OF [facility] DOCTOR EMERGENCY DEPARTMENT Observed: 02/20/2018 Status: F Source: [place] SUMMARY 4:17 PM [facility] REPOSITORY [facility] Medical Records Department [address] [place] [address] Emergency Department Summary 02/20/18 0953 MR#: [id number] Acct: [id number] Name: OLIVER CUNNINGHAM Rep #: [id number] : 1960 57 From: Kathleen Bunn MD PCP: Care Physician, No Primary Status: DEP ER - ER Visit Summary Date of Service: 02/20/18 Chief Complaint: [] Feels like shards of metal are going through his body History of Present Illness: The patient is a 57 M [] history of MS for years he indicates he was treated [facility] with the medication he calls bao, about 1 year ago for the MS he says he was given that medication he believes he immediately suffered a reaction that caused him to feel as if shards of metal work coursing through his body the medication was discontinued he was given what he reports was some type of reversal agent or antidote at the time. That did not help he continues to have a sensation at times that his blood is full of metal that is coursing through his body he had a sensation intensified this morning and he called the paramedics and he was brought into the hospital for evaluation. He basically indicates his entire body feels tingly as if metal is coursing through his blood. He has no headache no chest pain no abdominal pain and paresthesias nothing specific, he has no history of MA PE or DVT he does have history of prior hernia mesh repair surgery, anxiety, possibly COPD, he has nonspecific abdominal elements, he is still followed by the [facility] MS clinic they are aware he has persistent symptoms and there is no medications he has been given for the symptoms in fact he states he is not on anything for the MS now Indicates his MS causes him to have paresthesias from the elbows down to the fingertips all digits and that has been chronic and stable and unchanged He indicates he has been seen by physicians for this condition but no one has been able to do anything for him or help him Physical Examination: [] He is resting comforting the bed he heart rate is about 110 blood pressure is 130/80 General, no distress resting comfortably HEENT is generally unremarkable The neck is supple no adenopathy Cardiovascular, regular rate and rhythm Lungs, clear bilateral Abdomen, soft nontender Extremities, no clubbing cyanosis or edema Neurologic, awake alert answering questions appropriately moving all 4 extremities, palpation of his skin his extremities his back revealed no focal areas of abnormalities he has full range of motion of all major joints his pulses are symmetric he is in no distress Test Results: [] Emergency Department Course and Treatment: [] had these symptoms for over a year he had an exacerbation today he is on no chronic medications for all the above, at this time will provide IV fluids morphine and some Ativan screening labs He does have an appointment to see a physician this afternoon at 1 for all the above, and he is interested in keeping that appointment Reviewing some of the patient's chart shows he has had MRCP is a vascular studies of various parts of his body and other tests please see those reports in the computer that were all generally unremarkable, so he is incorrect when he notes that no one has tried to evaluate him for this condition Treatment Plan: [] The patient's EKG lab studies chest x-ray were all generally unremarkable please see those reports, again as above the patient had multiple prior studies for evaluation of this condition there was no acute gross abnormality with any of the studies. I explained to the patient given the long nature of this condition he should follow-up with his primary care for providers, his [facility] [place] providers, other outpatient providers, the condition really cannot be further managed from the emergency department, he understands he does have an appointment to see a provider today at 1:00 in the afternoon he will keep that appointment and return for change in symptoms Disposition: [] Home stable Impression: [] Nonspecific whole body diffuse sense of metallic pain for over a year etiology unclear, history of MS This note was generated with [employer] dictation software. It may contain incorrect words, spelling, and punctuation that were not noted in review of the chart prior to signing ED Disposition - Plan for ED Patient: Chief Complaint: General Illness Referrals: Care Physician,No Primary [Primary Care Provider] - What to do if you have Problems For any increased pain, shortness of breath, bleeding, nausea or vomiting, chest pain, or any unexpected problems, contact your Primary Care Provider. Call [facility] ([phone]) or report to the closest Emergency Room. Call 911 if necessary. 02/20/18 3331 <Electronically signed by Kathleen Bunn MD> Date Kathleen Bunn MD Cosigner Signature (If Indicated): Date CC: No Primary Care Physician DISCHARGE INSTRUCTION Observed: 02/20/2018 Status: F Source: [place] 11:19 AM [facility] REPOSITORY [facility] Medical Records Department [address] [place] [address] Discharge Instruction 02/20/18 1117 MR#: [id number] Acct: [id number] Name: OLIVER CUNNINGHAM Rep #: [id number] : 1960 57 From: Kathleen Bunn MD PCP: Care Physician, No Primary Status: REG ER ED Disposition - Plan for ED Patient: Chief Complaint: General Illness Instructions: ED Paraesthesias Referrals: Care Physician,No Primary [Primary Care Provider] - Additional Instructions: Follow-up with her outpatient provider as scheduled today and your physicians at [facility] What to do if you have Problems For any increased pain, shortness of breath, bleeding, nausea or vomiting, chest pain, or any unexpected problems, contact your Primary Care Provider. Call [facility] ([phone]) or report to the closest Emergency Room. Call 911 if necessary. 02/20/18 1119 <Electronically signed by Kathleen Bunn MD> Date Kathleen Buck Signature (If Indicated): Date CC: No Primary Care Physician CBC W/DIFF, AUTOMATED Collected: 02/20/2018 Status: F Source: [place] 10:05 AM [facility] REPOSITORY TYPE CODE TESTS RESULT OUT OF RANGE REFERENCE UNITS LAB L100.1000 4.4-11.0 K/mm3 Normal WBC 7.5 LAB L100.1200 4.6-6.2 M/mm3 Normal RBC 4.71 LAB L100.1300 13.0-16.5 g/dl Normal HGB 15.5 LAB L100.1400 40-54 % Normal HCT 45.2 LAB L100.1500 80-94 fL High MCV 96.0 LAB L100.1600 27.0-32.0 pg High MCH 32.9 LAB L100.1700 32-36 g/gl Normal MCHC 34.3 LAB L100.1810 11.6-14.6 % Normal RDW CV 13.3 LAB L100.1820 35.1-43.9 fl High RDW SD 46.1 LAB L100.1900 150-450 K/mm3 Normal PLT 264 LAB L100.2000 6.2-12.0 fl Normal MPV 8.7 LAB L100.2100 47-70 % Normal NEUT% 59.5 LAB L100.2200 19-41 % Normal LY% 29.7 LAB L100.2300 0-10 % Normal MONO% 9.6 LAB L100.2400 0-5 % Normal EO% 0.8 LAB L100.2500 0-1 % Normal BASO% 0.1 LAB L100.2550 0.0-0.9 % Normal IM GRAN % 0.300 Result Comment: IG% - Immature Granulocytes (promyelocytes, myelocytes and metamyelocytes) > 1% indicates that a LEFT SHIFT is Present. LAB L100.2620 2.0-7.7 X10 3/uL Normal Absolute Neut 4.5 LAB L100.2720 0.83-4.51 X10 3/ul Normal Absolute Lymph 2.23 Performed By: #### L100.0100 #### [facility] [address] [place], [place], [address] BASIC METABOLIC Collected: 02/20/2018 Status: F Source: [place]EL PROFILE (BMP) 10:05 AM [facility] REPOSITORY TYPE CODE TESTS RESULT OUT OF RANGE REFERENCE UNITS LAB L501.0100 74-106 mg/dL High GLU 120 Result Comment: Fasting Glucose result from 100 to 125 mg/dL suggests IMPAIRED HOMEOSTASIS per A.D.A. criteria. Please note revised GLUCOSE reference range effective 2017. LAB L501.1000 7-18 mg/dL Normal BUN 16 LAB L501.1100 0.70-1.30 mg/dL Normal CREAT,SERUM 0.86 Result Comment: The validity of the calculated GFR AND GFRAA in patients over 70 years has not been determined. Clinical correlation is essential. LAB L501.1110 >60 mL/min Normal EST GFR 98 Result Comment: Non- GFR Calc LAB L501.1115 >60 mL/min Normal EST GFR - AA 119 Result Comment: GFR Calc LAB L501.1255 ml/min Normal Estimated CRCL 102.15 LAB L501.1300 10-20 RATIO BUN/CRE Normal 18.7 LAB L501.2200 8.5-10 mg/dL .1 CA Normal 8.6 LAB L501.5300 136-14 mmol/L 5 NA Normal 137 LAB L501.5600 3.5-5. mmol/L 1 K Normal 3.9 LAB L501.5900 98-107 mmol/L CL Normal 102 LAB L501.6100 21.0-3 mmol/L 2.0 CO2 Normal 26.0 LAB L501.6200 5-15 GAP Normal 9 Performed By: #### L500.2500, L501.4010 #### [facility] [address] [place], [address] TROPONIN-I Collected: 02/20/2018 Status: F Source: [place] 10:05 AM [facility] REPOSITORY TYPE CODE TESTS RESULT OUT OF RANGE REFERENCE UNITS LAB L501.4010 <0.045 ng/mL Normal < 0.015 TROPONIN-I Result Comment: TROPONIN-I EXPECTED VALUES <0.045 Negative 0.045 - 0.590 Consistent with Cardiac Damage > OR = 0.600 Critical Value Not every elevated troponin is indicative of MA. These values should be used with clinical judgement in examining the patient's clinical picture for diagnosis. To establish a diagnosis of MA versus myocardial injury, there must be a demonstrated rise and/or fall in the troponin values, in addition to ischemic symptoms, EKG changes, new regional wall motion abnormality, and/or angiographical evidence. PLEASE NOTE: REFERENCE RANGES EDITED 17 Performed By: #### L500.2500, L501.4010 #### [facility] [address] [place], [address] CHEST 1 VIEW Observed: 02/20/2018 Status: F Source: [place] (PORTABLE) 9:52 AM [facility] REPOSITORY [facility] Imaging Services [address] [place] [address] Chest 1 View (Portable) MR#: [id number] Acct: [id number] Name: OLIVER CUNNINGHAM Rep #: [id number] : 1960 M 57 From: Neftali Hernandez MD PCP: Care Physician, No Primary Status: REG ER Study: Chest 1 View (Portable) Date of Exam: 02/20/18 Exam# [id number] Ordering Dr: Kathleen Bunn MD STUDY: X-RAY CHEST REASON FOR EXAM: Male, 57 years old. Chest pain. Generalized illness. TECHNIQUE: Single AP portable view of the chest. COMPARISON: Comparison is made with prior study dated January 31, 2018. FINDINGS: EKG electrodes are seen. Hyperinflation. There are decreased bronchovascular markings in the upper lobes suggestive of emphysematous changes. There is no demonstrated pleural abnormality. Normal size heart. Normal mediastinum and zachary. Normal visualized pulmonary arteries. Normal visualized aortic arch and descending thoracic aorta. Normal visualized thoracic spine. Normal visualized ribs, clavicles, and shoulders. There is no demonstrated abnormality of the visualized soft tissue structures of the upper abdomen. RAD/Chest 1 View (Portable) IMPRESSION: Hyperinflation. Emphysematous changes. No acute abnormality is seen. Electronically Signed: Neftali Hernandez MD at 10:35 EST Tel [phone], Service support , CC: MD Lybuov Bunn; No Primary Care Physician Nutrition Services Worker: Signed ED DOC Observed: 02/07/2018 Status: UNK Source: [facility] 5:05 PM [facility] REPOSITORY This is a preliminary report only, as the practitioner review and authentication has not occurred. ED DOC Observed: 02/07/2018 Status: UNK Source: [facility] 5:05 PM [facility] REPOSITORY PHYSICIAN ASSESSMENT RECORDS : FlexChartData Event Time: 02/07/2018 17:20 Status: Signed [facility] Oliver Cunningham [[id number]] Attending Physician 57 / M / 1960 Chart (V2b) Chart created at 02/07/2018 16:44 by Bubba Cheney Chart closed at 02/07/2018 16:48 Entry in Emergency Department at 02/07/2018 13:02, departure at 02/07/2018 17:05 Patient Name: Oliver Cnuningham Record Number: [id number] Date: 02/07/2018 16:44 Entered Department at: 02/07/2018 13:02 Patient Seen at: 02/07/2018 13:55 Historian: Patient PCP: *None,. Chief Complaint:C/O INTERMITTENT RIGHT ARM WEAKNESS AND HAND CRAMPS X 1 WEEK. ALSO C/O RIGHT LOWER ABDOMINAL PAIN THAT RADIATES UP X 5 YEARS. WORSE FOR THE LAST 2 YEARS. Triage Note reviewed and Initial Vital Signs reviewed. Temperature: 97.5 F (36.4 C). Pulse: 115. Respiratory Rate: 18. Blood-pressure: 132/87. Oxygen Saturation: 98%. History of Present Illness: 57-Year-old male presents with multiple complaints. Patient states for the past 5 years he has had a lot of issues with his abdomen. States he has had a lot of lower abdominal discomfort for which nobody has been able to figure out a cause. He states he had a hernia [facility] PATIENT NAME: OLIVER CUNNINGHAM [facility] [address] MEDICAL REC #: [id number] [place] [address] EMERGENCY DEPARTMENT CHART EMERGENCY DEPARTMENT PHYSICIAN repair done at one point but this did not resolve his symptoms. He continues to have some right lower abdominal discomfort. He states he has MS and gets scattered symptoms of numbness and weakness to the extremities at times, no numbness or weakness at this time. He states he has been extensively evaluated and treated for this as well. Denies any nausea or vomiting, no constipation or diarrhea, no chest pain or shortness of breath, no back pain, no other reported complaints at this time. Review of Systems. All other systems reviewed and negative.. Past History, Medications, Allergies, Social History and Family History reviewed in nurses note. Medications: Reviewed RN Note. LORAZPAM 0.5MG PO BID , REMERON 30MG PO DAILY QHS , ASA 81MG PO DAILY , VENTOLIN HFA 90MCG INH PRN , VERIFIED 02/07/18 Allergies: Reviewed RN Note PCN(Rash), mobic(Rash), lyrica(agitation of nerves), cymbalta(palpitations), abaugio(plugs arteries), copaxone(Rash), hydrochlorothiazide(syncope), Reglan(chest pain), trulance(Unknown), Magnesium Sulfate(BURNING), WELCHOL(ABDOMINAL PAIN) Social History: Reviewed RN Note. Family History: Reviewed RN Note Physical Examination: General: Alert; Oriented x 3. NAD HEENT: Eyes: PERRL; EOMI. Nose: Normal inspection. Oropharynx / Throat: Dry mucous membranes. Neck: Supple; FROM, no pain Respiratory: No Resp Distress and Normal Breath Sounds Cardio-Vascular: No murmur, No rub and RRR Abdomen: Normal Bowel Sounds, No Organomegaly, Non-tender and Soft; negative for Guarding; Non-distended. Back: No CVA tenderness and Non-tender Extremity: No Calf Tenderness, No edema [facility] PATIENT NAME: OLIVER CUNNINGHAM [address] [address] MEDICAL REC #: [id number] [place] [address] EMERGENCY DEPARTMENT CHART EMERGENCY DEPARTMENT PHYSICIAN and Normal Equal pulses; Cap refill andlt; 2 sec. Normal strength/sensation. Neurological: Alert, Oriented X3, Normal Sensation, No Gross Weakness, Cranial Nerves 2-12 Normal, Speech Normal and 5/5 UE/LE Strength Skin: Warm and Dry Psychological: Anxious CBC W/DIFF, information as of 02/07/2018, 2:23 pm 93.6 / 14.6 / 9.1 andgt;------andlt; 251 / 42.3 / N:69.3 BASO ABS: 0.00 K/Cu Mm; BASOPHIL %: 0.4 %; EOS ABS: 0.00 K/Cu Mm; EOSINOPHIL %: 0.3 %; IMMATR GRAN ABS: 0.10 K/Cu Mm; IMMATURE GRAN %: 0.5 %; LYMPH %: 21.0 %; LYMPH ABS: 1.90 K/Cu Mm; MCHC: 34.5 Gm/Dl; MONO ABS: 0.80 K/Cu Mm; MONOCYTE %: 8.5 %; MPV: 8.9; NEUTROPHIL ABS: 6.30 K/Cu Mm; NRBC: 0.0 %; RBC: 4.52 M/Cu Mm; RDW: 12.4 BMP, information as of 02/07/2018, 2:23 pm 135* --------+--------+--------andlt; 106* Anion Gap = 6 4.1 BUN/CREA: 13; CALCIUM TOTAL: 8.5 Mg/Dl Imaging Study Obtained: CT ABD/PEL W IV CONTRAST ONLY Imaging Study Obtained: CT ABD/PEL W IV CONTRAST ONLY, Status:Signed Report Available CT ABD/PEL W IV CONTRAST ONLY Ordering Physician: Bubba Cheney DO 02/07/2018 2:[address] ABDOMEN AND PELVIS WITH IV CONTRAST: Clinical Statement: Pain lower right groin pain radiating up x5 years Comparison: CT abdomen pelvis 09/15/2017 [facility] PATIENT NAME: OLIVER CUNNINGHAM [address] [address] [facility] MEDICAL REC #: [id number] [place] [address] EMERGENCY DEPARTMENT CHART EMERGENCY DEPARTMENT PHYSICIAN TECHNIQUE: Contiguous transaxial 3.75 mm slices were obtained through the abdomen and pelvis following the uneventful administration of 100 cc of Isovue 300 IV contrast. Coronal reformats were also obtained. FINDINGS: There is a trace pericardial effusion. Heart size appears to be within normal limits. The liver, spleen, adrenal glands, right kidney, and pancreas are unremarkable. There is a cyst in the left kidney. There is no pathologic bowel thickening or bowel obstruction. The appendix is not inflamed. Calcified plaque is seen throughout the aorta and iliac arteries which are nonaneurysmal. There are soft tissue densities in both inguinal canals most likely postsurgical change and overall similar to the prior exam. No new hernia. The prostate measures 5 cm in diameter. There are no acute osseous findings. IMPRESSION: Postsurgical changes of bilateral inguinal hernia repairs. No acute findings. A report was sent to the Emergency Department at the time of [facility] PATIENT NAME: OLIVER CUNNINGHAM [address] MEDICAL REC #: [id number] [place] [address] EMERGENCY DEPARTMENT CHART EMERGENCY DEPARTMENT PHYSICIAN dictation. ---- Electronic Signature on File ---- Signed By: Kate Best MD [email or web address] Dictated: 02/07/2018 2:57 PM Signed: 02/07/2018 3:03 PM Reported By: KATE BEST M.D. Medical Decision Making After evaluation, patient was given IV fluids, laboratory studies and imaging obtained as above, labs unremarkable, CT also unremarkable only showing postsurgical changes from his inguinal hernia repairs. Patient is extremely anxious, he is very fixated on his urinary habits, states he does not feel like he urinates as much as he should, he is requesting a prescription for Lasix to help him urinate more. On review of prior emergency department visits, it is a frequent complaint that he has in regard to feeling like he does not urinate as much as he should. I think this is more of a psychological issue for the patient as he does not have any signs of renal dysfunction, urinary retention or other abnormalities. Patient states he has an upcoming appointment next week with primary care, he was encouraged to keep this appointment, recommended to return immediately if he has any further concerns. Additional Information: Discussed Results, Diagnosis and Follow-Up with Patient. Clinical Impression: 1. Acute on chronic abdominal pain Disposition: Discharged . [facility] PATIENT NAME: OLIVER CUNNINGHAM [address] [facility] [address] MEDICAL REC #: [id number] [place] [address] EMERGENCY DEPARTMENT CHART EMERGENCY DEPARTMENT PHYSICIAN PATRIC completed. I was the primary ED attending.. : Discharge Report Event Time: 02/07/2018 16:48 ===DISCHARGE REPORT=== : FlexChartData Event Time: 02/07/2018 17:20 : Discharge Report Event Time: 02/07/2018 16:48 Status: Draft Reasons to Return to the ER: You must return to the ER for any new, worsening or changing symptoms, or if you feel more ill or sick in any way. This is the most important thing to remember. Follow-up: The care you received in the ER was given on an emergency basis only, and it is often not possible to completely treat or diagnose a problem in a single ER visit. You must see your follow-up doctor for a recheck within a week unless you receive instructions with a different timeframe for follow-up. Please follow all your discharge instructions. Medications: Unless the ER doctor tells you differently, you should take all your regular medications and any new medications prescribed today. Because it is not possible for the ER doctor to review all of your medication side effects or interactions, you must review possible side effects and interactions with your pharmacist when you get your prescriptions filled. EKG and Radiology Results: A traveling clerk or radiologist will review any EKG or radiology results provided by the ER doctor. We will contact you if the results in the final EKG or radiology reports require a change in treatment. [facility] PATIENT NAME: OLIVER CUNNINGHAM [address] [address] MEDICAL REC #: [id number] [place] [address] EMERGENCY DEPARTMENT CHART EMERGENCY DEPARTMENT PHYSICIAN Culture Results: Cultures may have been ordered during your ER visit. We will contact you if the culture results require a change in treatment. Referrals: Most referrals to specialists come from the on-call list You should make your regular doctor aware of any referrals before you schedule the appointment so that they are aware and can make suggestions DIAGNOSIS: Acute on chronic abdominal pain UNLESS THE ER DOCTOR GIVES YOU OTHER INSTRUCTIONS, YOU MUST SEE YOUR FOLLOW-UP DOCTOR WITHIN 1 TO 2 DAYS FOR RECHECK. YOU MUST RETURN TO THE ER RIGHT AWAY FOR ANY OF THE FOLLOWING:Increasing painChange in the location of the painNew or increasing fever or chillsNew or increasing constipation or difficulty urinatingNew or increasing abdominal swelling or bloatingBlood appears in the stool, vomit or urineNew or increasing vomiting or diarrhea.New or increasing weakness or dizzinessEarly appendix infection is always a possibility and you must return if the pain moves to the lower right side of your abdomen REFERRAL Your regular doctor(s) Please call the above number to schedule a follow-up appointment. next week MEDICATIONS We have given you these prescriptions that you must fill and start taking: [facility] PATIENT NAME: OLIVER CUNNINGHAM [address] [facility] [address] MEDICAL REC #: [id number] [place] [address] EMERGENCY DEPARTMENT CHART EMERGENCY DEPARTMENT PHYSICIAN None COMMENTS: Patient Satisfaction: Within the first few days after your visit, you will receive an email and/or phone call regarding your visit. We value your feedback, and would appreciate it if you would take the time to complete this short survey. If you receive a call, it will be between 6p and 8p. My signature below indicates that I have received and understand the oral instructions regarding my medical problem. I also acknowledge receipt of this written instruction sheet including a list of major tests and procedures ordered during my visit. I will arrange for follow-up care as indicated by these instructions and referrals. This signed original will be kept in my medical record. Your signature below indicates consent for Case Management to contact [facility] providers in an effort to meet your ongoing healthcare needs. This will allow forcontinuity of care once you leave the Emergency Department. This exchange of informationwill include, but not be limited to, disclosure of your patient information and possible release of records. [employer] Patient: OLIVER CUNNINGHAM Sex: M : 1960 Age: 57 yr Account No: [id number] Registration Date: 02/07/2018 Address: [address] [facility] [facility] Address: [place] [address] REGISTRATION [facility] PATIENT NAME: OLIVER CUNNINGHAM [address] [facility] [address] MEDICAL REC #: [id number] [place] [address] EMERGENCY DEPARTMENT CHART EMERGENCY DEPARTMENT PHYSICIAN ED Number: [id number] Marital Status: D Financial Class: MPPS TRIAGE Priority: 3 - Urgent Complaint: Weakness Complaint: Abdominal Pain Stated Complaint: C/O INTERMITTENT RIGHT ARM WEAKNESS AND HAND CRAMPS X 1 WEEK. ALSO C/O RIGHT LOWER ABDOMINAL PAIN THAT RADIATES UP X 5 YEARS. WORSE FOR THE LAST 2 YEARS. Arrival Date: 02/07/2018 13:02 Triage Date: 02/07/2018 13:07 Mode of Arrival: *Privately Owned Vehicle WC: N Language: Cypriot Transport: Ambulatory/Walk In BED C30 In: 02/07/2018 13:19:56 02/07/2018 13:19:56 ARM C30 (Removed From) Out: 02/07/2018 17:05:58 02/07/2018 17:05:58 MCS PROVIDERS KIMBERLEE BENAVIDEZ Provider Contact: 02/07/2018 13:26:14 MCS End: DO Bubba D Noni Provider Contact: 02/07/2018 13:55:03 EDS End: TRIAGE HISTORY [facility] PATIENT NAME: OLIVER CUNNINGHAM [address] [facility] [address] MEDICAL REC #: [id number] [place] [address] EMERGENCY DEPARTMENT CHART EMERGENCY DEPARTMENT PHYSICIAN ALLERGIES Allergic To: PCN - Rash 02/07/2018 13:19 ARM Allergic To: mobic - Rash 02/07/2018 13:19 ARM Allergic To: lyrica - agitation of nerves 02/07/2018 13:19 ARM Allergic To: cymbalta - palpitations 02/07/2018 13:19 ARM Allergic To: abaugio - plugs arteries 02/07/2018 13:19 ARM Allergic To: copaxone - Rash 02/07/2018 13:19 ARM Allergic To: hydrochlorothiazide - syncope 02/07/2018 13:19 ARM Allergic To: Reglan - chest pain 02/07/2018 13:19 ARM Allergic To: trulance - Unknown 02/07/2018 13:19 ARM Allergic To: Magnesium Sulfate - BURNING 02/07/2018 13:20 ARM Allergic To: WELCHOL - ABDOMINAL PAIN 02/07/2018 13:20 ARM CURRENT MEDS Name: LORAZPAM 0.5MG PO BID 02/07/2018 14:55 MCS Name: REMERON 30MG PO DAILY QHS 02/07/2018 14:55 MCS Name: ASA 81MG PO DAILY 02/07/2018 14:55 MCS Name: VENTOLIN HFA 90MCG INH PRN 02/07/2018 14:55 MCS Name: VERIFIED 02/07/18 02/07/2018 14:55 MCS ILLNESS Illness: Anxiety 02/07/2018 13:19 ARM Illness: Emphysema 02/07/2018 13:19 ARM Illness: scleraderma 02/07/2018 13:19 ARM [facility] PATIENT NAME: OLIVER CUNNINGHAM [address] [facility] 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 02/07/2018 13:19 ARM Social History: Have you traveled in the past month? Where NO 02/07/2018 13:19 ARM [facility] [facility]ENTER PATIENT NAME: OLIVER CUNNINGHAM [address] [facility] [address] [place] MEDICAL REC #: [id number] [place] [address] EMERGENCY DEPARTMENT CHART EMERGENCY DEPARTMENT PHYSICIAN IMMUNIZATIONS Immunization: Pneumonia Vaccine-no 02/07/2018 14:55 MCS Immunization: Flu Vaccine-no 02/07/2018 13:27 MCS SELF TREATMENT Aid: *No Treatment Prior to Arrival 02/07/2018 13:27 MCS TRIAGE TREATMENT Aid: *No Treatment Prior to Arrival 02/07/2018 14:55 MCS NURSING ASSESSMENT ASSESSMENT NOTES 02/07/2018 14:25 SEE TRIAGE N OTE.MSPS INTACT. C/O RLQ ABD DISCOMFOT, RADIATES THRU TO BACK. STATING PAIN X2 WKS. WORSE OVER THE LAST 2 DAYS. STATES INCREASE IN DISCOMFORT WITH MOVEOMENT. LUNGS C.TA BSX4. ABD SOFT NONTENDER OT PALP. SKIN WARMP I N KN DRY CAP REFILL andlt; 2SECS. HAND VINYL CUTTER EQUAL AND STRONG. PT AMBULTORY IN ROOM [facility]. 02/07/2018 14:52 MCS TREATMENT 02/07/2018 14:52 Patient Interaction - Allergy Band on Pt. 02/07/2018 14:53 MCS 02/07/2018 14:52 Patient Interaction - Gunstock Spray Unit Adjuster/ Pulse ox/ BP cuff applied 02/07/2018 14:53 MCS 02/07/2018 14:52 Patient Interaction - Name Band on Pt 02/07/2018 14:53 MCS 02/07/2018 14:52 Staff/ Patient Interaction - Side rails up X2 and call light placed within reach. 02/07/2018 14:53 MCS 02/07/2018 14:52 Staff/ Patient Interaction - Introduced self and assessed patients needs. 02/07/2018 14:53 MCS [facility] PATIENT NAME: OLIVER CUNNINGHAM [address] [facility] [address] [place] MEDICAL REC #: [id number] [place] [address] EMERGENCY DEPARTMENT CHART EMERGENCY DEPARTMENT PHYSICIAN 02/07/2018 14:52 Staff/ Patient Interaction - Call light placed within reach. 02/07/2018 14:53 MCS 02/07/2018 14:53 Primary DOC Guide - A. 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 Psychosocial Assessment 02/07/2018 14:53 MCS Over the Last 2 weeks, how often have you had little interest or pleasure in doing things (0) Not at All Is Psychosocial Assessment Score 3 or more? If score is 3 or more please consult ED Navigator! No Total Psychosocial Assessment Score 0 Over the last 2 weeks, how often have you been feeling down, depressed or hopeless (0) Not at All 02/07/2018 15:47 Hourly Rounding - Rounding 02/07/2018 15:47 MCS Elimination/Toileting Y Pain Unknown Position Comfortable Y Safe Environment Y Fall Risk Change N 02/07/2018 17:05 Admit/Discharge - *Discharge instructions/tests andamp; procedures/med list reviewed and provided; prescriptions given to caregiver 02/07/2018 17:05 MCS 02/07/2018 17:05 Admit/Discharge - Ambulated with steady gait home 02/07/2018 17:05 MCS 02/07/2018 17:05 Admit/Discharge - Discharge infomation reviewed with pt 02/07/2018 17:05 MCS [facility] PATIENT NAME: OLIVER CUNNINGHAM [address] [facility] [address] [place] MEDICAL REC #: [id number] [place] [address] EMERGENCY DEPARTMENT CHART EMERGENCY DEPARTMENT PHYSICIAN 02/07/2018 17:05 Admit/Discharge - Discharge information reviewed with family 02/07/2018 17:05 MCS MEDICATIONS IV IV Fluid: B 02/07/2018 14:51 02/07/2018 14:51 MCS Line #: 1 Fluid: Saline Lock Rate: ml/hr Location: antecubital fossa left Ndl Gauge: 20 # Attempts: 1 Notes: SALINE LOC FLUSHES WELL. IV Fluid: S 02/07/2018 14:51 02/07/2018 17:05 MCS Line #: 1 Fluid: 0.9% NS 1000cc bag Rate: ml/hr Location: antecubital fossa left Ndl Gauge: 20 # Attempts: 1 Amt: 1000 IV Fluid: D 02/07/2018 17:04 02/07/2018 17:05 MCS Line #: 1 Fluid: 0.9% NS 1000cc bag Rate: ml/hr Location: antecubital fossa left Ndl Gauge: 20 # Attempts: 1 IV Fluid: E 02/07/2018 17:04 02/07/2018 17:05 MCS Line #: 1 Rate: ml/hr Location: antecubital fossa left Ndl Gauge: 20 # Attempts: 1 Notes: iv cath removed intmact. I AND O VITALS VS-ROUTINE Time: 02/07/2018 13:07 B/P: 132/ - Left Upper Arm - Sitting - Machine [facility] PATIENT NAME: OLIVER CUNNINGHAM [address] [facility] [address] [place] MEDICAL REC #: [id number] [place] [address] EMERGENCY DEPARTMENT CHART EMERGENCY DEPARTMENT PHYSICIAN Pulse: 115 - Monitor Resp: 18 Sa02: 98 Room Air Temp: 97.50 F - Oral 02/07/2018 13:20 ARM VS-Pain Time: 02/07/2018 13:07 Pain Level: 10 02/07/2018 13:20 ARM VS-GCS Time: 02/07/2018 13:07 Visual: 4 Verbal: 5 Motor: 6 GCS Total: 15 02/07/2018 13:20 ARM VS-HT/WT Time: 02/07/2018 13:07 Ht: 180.3 cm Stated Weight: 83 kg Stated 02/07/2018 13:20 ARM VS-Visual Time: 02/07/2018 13:07 02/07/2018 13:20 ARM VS-FHT Time: 02/07/2018 13:07 02/07/2018 13:20 ARM VS-Notes Time: 02/07/2018 13:07 MAP 103 02/07/2018 13:20 ARM VS-ROUTINE Time: 02/07/2018 14:05 B/P: 126/68 - Right Upper Arm - Lying - Machine Pulse: 96 - Gunstock Spray Unit Adjuster Resp: 18 Sa02: 97 Room Air 02/07/2018 14:50 MCS VS-Pain Time: 02/07/2018 14:05 Pain Level: 0 02/07/2018 14:50 MCS VS-GCS Time: 02/07/2018 14:05 Visual: 4 Verbal: 5 Motor: 6 GCS Total: 15 02/07/2018 14:50 MCS VS-HT/WT Time: 02/07/2018 14:05 02/07/2018 14:50 MCS VS-Visual Time: 02/07/2018 14:05 02/07/2018 14:50 MCS VS-FHT Time: 02/07/2018 14:05 02/07/2018 14:50 MCS VS-Notes Time: 02/07/2018 14:05 MAP 87 02/07/2018 14:50 MCS VS-ROUTINE Time: 02/07/2018 16:39 B/P: 126/68 - Right Upper Arm - Lying - Machine Pulse: 79 - Gunstock Spray Unit Adjuster Resp: 18 Sa02: 98 Room Air 02/07/2018 16:41 MCS VS-Pain Time: 02/07/2018 16:39 Pain Level: 0 02/07/2018 16:41 MCS VS-GCS Time: 02/07/2018 16:39 Visual: 4 Verbal: 5 Motor: 6 GCS Total: 15 02/07/2018 16:41 MCS VS-HT/WT Time: 02/07/2018 16:39 02/07/2018 16:41 MCS VS-Visual Time: 02/07/2018 16:39 02/07/2018 16:41 MCS VS-FHT Time: 02/07/2018 16:39 02/07/2018 16:41 MCS VS-Notes Time: 02/07/2018 16:39 map 84 02/07/2018 16:41 MCS [facility] PATIENT NAME: OLIVER CUNNINGHAM [address] [place] MEDICAL REC #: [id number] [place] [address] EMERGENCY DEPARTMENT CHART EMERGENCY DEPARTMENT PHYSICIAN ORDERS Discharge patient 02/07/2018 16:49 N/A Ordered: 02/07/2018 16:48 By . Other Reviewed: 02/07/2018 16:49 By . Other AWNING CRAFTSMAN ORDER: GFRP 02/07/2018 14:57 None Ordered: 02/07/2018 14:57 Completed Time: 02/07/2018 14:57 Results Time: 02/07/2018 14:56 CBC with diff 02/07/2018 14:53 N/A Ordered: 02/07/2018 14:08 By Bubba Cheney Completed Time: 02/07/2018 14:53 By Bubba Cheney Noted Time: 02/07/2018 14:49 MCS Results Time: 02/07/2018 14:52 BMP 02/07/2018 14:57 N/A Ordered: 02/07/2018 14:08 By Bubba Cheney Completed Time: 02/07/2018 14:57 By Bubba Cheney Noted Time: 02/07/2018 14:49 MCS Results Time: 02/07/2018 14:56 CT abd and pel with IV con only 02/07/2018 15:14 N/A Ordered: 02/07/2018 14:08 By Bubba Cheney Completed Time: 02/07/2018 15:14 By Bubba Cheney Indication: Pain Noted Time: 02/07/2018 14:55 Question: Patient has history of true RCM allergy? Answer: NO IV NS bolus 1L over 60 min 02/07/2018 14:26 N/A Ordered: 02/07/2018 14:08 By Bubba Cheney Completed Time: 02/07/2018 14:26 By Bubba Cheney Noted Time: 02/07/2018 14:09 MCS DISCHARGE Diagnosis: Acute on chronic abdominal pain 02/07/2018 16:48 [facility] PATIENT NAME: OLIVER CUNNINGHAM [address] [facility] [address] MEDICAL REC #: [id number] [place] [address] EMERGENCY DEPARTMENT CHART EMERGENCY DEPARTMENT PHYSICIAN Disposition: Time: 02/07/2018 16:48 Discharge Time: 02/07/2018 17:05 Type: Discharge Condition: Stable for admission/discharge/transfer after emergency evaluation/treatment Category: *NOT APPLICABLE Referral: 02/07/2018 16:48 Admit Physician: . Other PRESCRIPTIONS CHARGES 0.9% NS 1000cc bag QTY @ 1 02/07/2018 14:51 MCS Auto Generated Charge SIGNATURE Bubba Cheney DO EDS GER WALSH RN ARM [facility] PATIENT NAME: OLIVER CUNNINGHAM [address] [facility] [address] [place] MEDICAL REC #: [id number] [place] [address] EMERGENCY DEPARTMENT CHART EMERGENCY DEPARTMENT PHYSICIAN CBC W/DIFF Collected: 02/07/2018 Status: F Source: [facility] 2:23 PM [place] REPOSITORY Order Comment: [place]: TYPE CODE TESTS RESULT OUT OF RANGE REFERENCE UNITS LAB L200.82130 4.5-11.0 K/CU MM WBC Normal 9.1 LAB L200.74927 4.50-6.00 M/CU MM RBC Normal 4.52 LAB L200.44674 13.5-17.5 G/DL HGB Normal 14.6 LAB L200.27341 41.0-53.0 % HCT Normal 42.3 LAB L200.33386 80.0-99.0 fl MCV Normal 93.6 LAB L200.18848 32.0-36.0 GM/DL MCHC Normal 34.5 LAB L200.93354 11-14.5 RDW Normal 12.4 LAB L200.05731 9.4-12.4 Low MPV 8.9 LAB L200.28543 150-450 K/CU MM PLT Normal 251 LAB L200.14878 45-75 % NEUTROPHILS Normal % 69.3 LAB L200.53850 Less than 2 % IMMATURE Normal GRAN % 0.5 LAB L200.20943 20-40 % LYMPH % Normal 21.0 LAB L200.13090 2-10 % MONOCYTE % Normal 8.5 LAB L200.42353 0-5 % EOSINOPHIL Normal % 0.3 LAB L200.52025 0-2 % BASOPHIL % Normal 0.4 LAB L200.47882 2.0-8.3 K/CU MM NEUTROPHIL Normal ABS 6.30 LAB L200.49159 Less than 2 K/CU MM IMMATR GRAN Normal ABS 0.10 LAB L200.20530 0.9-4.4 K/CU MM LYMPH ABS Normal 1.90 LAB L200.81966 0.1-1.1 K/CU MM MONO ABS Normal 0.80 LAB L200.95935 0-0.5 K/CU MM EOS ABS Normal 0.00 LAB L200.57472 0-0.2 K/CU MM BASO ABS Normal 0.00 LAB L200.17125 Less than 1 % NRBC Normal 0.0 Performed By: #### L200.83502 #### [facility] [address] [place] [address] BMP Collected: 02/07/2018 Status: F Source: [facility] 2:23 PM [facility] REPOSITORY Order Comment: [place]: M TYPE CODE TESTS RESULT OUT OF RANGE REFERENCE UNITS LAB L500.68287 136-145 MMOL/L Low NA 135 LAB L500.35301 3.5-5.1 MMOL/L Normal K 4.1 LAB L500.14737 98-107 MMOL/L Normal CL 102 LAB L500.87159 21-32 MMOL/L Normal CO2 27 LAB L500.08689 5-16 MMOL/L Normal AGAP 6 LAB L500.01704 70-100 MG/DL High GLU 106 Result Comment: 70-100- Normal Fasting; 100-125 Impaired Fasting; greater than 126 on more than one result- Diabetes. ADA guidelines. Results may be falsely elevated after the administration of Sulfapyridine. Results may be falsely depressed after the administration of Sulfasalazine. LAB L500.20787 7-26 MG/DL Normal BUN 8 LAB L500.34162 0.670-1.170 MG/DL Low CREAT 0.604 Result Comment: Patients receiving either N-Acetylcysteine (NAC) or Metamizole prior to venipuncture, may have falsely depressed results. LAB L500.58454 15-24 Low BUN/CREA 13 LAB L500.72395 8.5-10.1 MG/DL Normal CALCIUM TOTAL 8.5 Performed By: #### L500.07698, L500.83151 #### [facility] [address] [place] [address] GFR EST Collected: 02/07/2018 Status: F Source: [facility] 2:23 PM [facility] REPOSITORY Order Comment: [place]: M TYPE CODE TESTS RESULT OUT OF RANGE REFERENCE UNITS LAB L500.67775 ML/MIN Normal IF non-AFR Greater than AMER 60 LAB L500.78478 ML/MIN Normal IF Greater than AMER 60 Performed By: #### L500.24830, L500.74749 #### [facility] [address] [place] [address] # [phone] CT ABD/PEL W IV Observed: 02/07/2018 Status: F Source: [facility] CONTRAST ONLY 2:05 PM [facility] REPOSITORY CT ABD/PEL W IV CONTRAST ONLY Ordering Physician: Bubba Cheney DO 02/07/2018 2:[address] ABDOMEN AND PELVIS WITH IV CONTRAST: Clinical Statement: Pain lower right groin pain radiating up x5 years Comparison: CT abdomen pelvis 09/15/2017 TECHNIQUE: Contiguous transaxial 3.75 mm slices were obtained through the abdomen and pelvis following the uneventful administration of 100 cc of Isovue 300 IV contrast. Coronal reformats were also obtained. FINDINGS: There is a trace pericardial effusion. Heart size appears to be within normal limits. The liver, spleen, adrenal glands, right kidney, and pancreas are unremarkable. There is a cyst in the left kidney. There is no pathologic bowel thickening or bowel obstruction. The appendix is not inflamed. Calcified plaque is seen throughout the aorta and iliac arteries which are nonaneurysmal. There are soft tissue densities in both inguinal canals most likely postsurgical change and overall similar to the prior exam. No new hernia. The prostate measures 5 cm in diameter. There are no acute osseous findings. IMPRESSION: Postsurgical changes of bilateral inguinal hernia repairs. No acute findings. A report was sent to the Emergency Department at the time of dictation. ---- Electronic Signature on File ---- Signed By: Kate Best MD [email or web address] Dictated: 02/07/2018 2:57 PM Signed: 02/07/2018 3:03 PM Reported By: KATE BEST M.D. Signed By: KATE BEST M.D. 12 LEAD ELECTROCARDIOGRAM Observed: 02/04/2018 Status: F Source: [place] 8:44 AM [facility] REPOSITORY [facility] Cardiovascular Services [address] [place] [address] 12 Lead EKG 01/31/18 0748 MR#: [id number] Acct: [id number] Name: OLIVER CUNNINGHAM Rep #: [id number] : 1960 57 From: Lenny Hernandez MD Attending Dr: Status: DEP ER Ordering Dr: Vinh Monae DO Date: 01/31/18 Location: ED Sex: M C Admitted: Test Reason : CP Blood Pressure : / mmHG Vent. Rate : 112 BPM Atrial Rate : 112 BPM P-R Int : 132 ms QRS Dur : 096 ms QT Int : 332 ms P-R-T Axes : 076 089 064 degrees QTc Int : 453 ms Sinus tachycardia Nonspecific ST abnormality Abnormal ECG Confirmed by LENNY HERNANDEZ ([id number]), medical editor ASHLEY GARCIA ([id number]) on 02/04/2018 8:43:49 AM Referred By: GHISLAINE Confirmed By:LENNY HERNANDEZ 02/04/18 0843 Date Lenny Hernandez MD CC: No Primary Care Physician; Vinh Monae DO Signed ED NOTE Observed: 02/02/2018 Status: COMPLETED Source: [place] 11:20 AM [facility] REPOSITORY HNO ID: [id number] Author: Ladonna (Rn) KIMBERLEE Floyd Service: Emergency Medicine Author Type: Registered Nurse Type: ED Notes Filed: 02/02/2018 11:25 AM Note Text: Report to KIMBERLEE Montaño ED NOTE Observed: 02/02/2018 Status: COMPLETED Source: [place] 11:11 AM [facility] REPOSITORY HNO ID: [id number] Author: Mandy LemonRnJessica Worley RN Service: Emergency Medicine Author Type: Registered Nurse Type: ED Notes Filed: 02/02/2018 11:11 AM Note Text: Straight cath urine specimen obtained and sent. URINALYSIS WITH Collected: 02/02/2018 Status: F Source: [facility] 11:06 AM [facility] REPOSITORY TYPE CODE TESTS RESULT OUT OF RANGE REFERENCE UNITS LAB UCOL Yellow Color Yellow LAB [facility] Clear Clarity Clear LAB UGLUC Negative mg/dL Glucose, Urine Negative LAB UBIL Negative Bilirubin, Urine Negative LAB UKET Negative Ketones, Abnormal Urine Trace Alert LAB USPG 1.005-1.030 Specific [place], Ur 1.017 LAB UHGB Negative Abnormal Hemoglobin/Blood, 2+ Alert Ur LAB UPH 4.5-8.0 pH 5.0 LAB UPROT Negative mg/dL Protein, Urine Negative LAB UUROB Normal Urobilinogen Normal LAB UNITR Negative Nitrites Negative LAB ULKEST Negative Leukest Negative LAB UCOM Comments SEE COMMENT Result Comment: N/A LAB UMCOM Urine SEE Madhu Comment COMMENT Result Comment: N/A LAB UWBC 0-5 /HPF WBC 0-5 LAB URBC 0-3 /HPF Abnormal Alert RBC 3-5 LAB UCAST 0 /LPF Abnormal Alert Cast SEE COMMENT Result Comment: 1-3 Hyaline Cast Performed By: #### UAWMIC #### [facility] [address] [place], [place] [address] BASIC METABOLIC PANL Collected: 02/02/2018 Status: F Source: [place] 10:57 AM [facility] REPOSITORY TYPE CODE TESTS RESULT OUT OF REFERENCE UNITS RANGE LAB GLU 74-99 mg/dL High Glucose 139 Result Comment: The [place] Diabetes Association (ADA) provides guidance for cutoff values for fasting glucose and random glucose. The ADA defines fasting as no caloric intake for at least 8 hours. Fas ting plasma glucose results between 100 to 125 mg/dL indicate increased risk for diabetes (prediabetes). Fasting plasma glucose results greater than or equal to 126 mg/dL meet the criteria for diagnosis of diabetes. In the absence of unequivocal hyperglycemia, results should be confirmed by repeat testing. In a patient with classic symptoms of hyperglycemia or hyperglycemic crisis, random plasma glucose results greater than or equal to 200 mg/dL meet the criteria for diagnosis of diabetes. Reference: Standards of Medical Care in Diabetes 2016, [place] Diabetes Association. Diabetes Care. 2016.39(Suppl 1). LAB BUN 9-24 mg/dL BUN 10 LAB CRET 0.73-1.22 mg/dL Creatinine Low 0.71 LAB NA 136-144 mmol/L Sodium Low 134 LAB K 3.7-5.1 mmol/L Potassium 3.8 LAB CL 97-105 mmol/L Chloride 97 LAB CO2 22-30 mmol/L CO2 Low 21 LAB AGAP 9-18 mmol/L Anion Gap 16 LAB CA 8.5-10.2 mg/dL Calcium, Total 9.1 LAB GFRAA eGFR- Amer. >60 LAB GFRNAA . eGFR-All Other Races >60 Result Comment: eGFR (Estimated GFR) Units of measure: mL/min/1.73 meters squared eGFR is derived from the reexpressed MDRD Study equation using the following parameters: serum creatinine, age, gender and race. The creatinine assay has been calibrated to be traceable to IDMS. An eGFR <60 mL/min/1.73m2 for >3 months is consistent with chronic kidney disease. Refer to KDOQI guidelines for clinical interpretation. In patients with unstable renal function, e.g. those with acute kidney injury, the eGFR may not accurately reflect actual GFR. Performed By: #### BMP #### [facility] [address] [place], [place] [address] ED PROV NOTE Observed: 02/02/2018 Status: COMPLETED Source: [place] 10:37 AM [facility] REPOSITORY HNO ID: [id number] Author: Eugenio Reynoso MD Service: Emergency Medicine Author Type: Physician Type: ED Provider Notes Filed: 02/02/2018 11:25 PM Note Text: ED Provider Note Patient Name: Oliver Cunningham SERVICE DATE: 02/02/18 CC Urinary retention History HPI 57 y/o M with PMH of MS, HTN, chronic tobacco abuse, chronic abd pain here for evaluation of urinary retention. Pt has multiple complaints all of which he has seen in several ED's and out pt appointments in [place], [place], [place]. He has been fired: from several practices including urology, general surgery, and gastroenterology. He complaints have remained the same over the past 2 year, including generalized abd pain, urinary difficulty, and Chest pain. He feels all of his symptoms started after inguinal surgery with mesh placement. Today he reports he has not been able to urinate since yesterday despite ingestion of po liquids. He denies dribbling. He denies Fever, chills, diaphoresis, sore throat, rhinorrhea, coughing, weakness or numbness in face, upper and lower extremities, skin discolorations or rashes, dysuria, hematuria, conjunctivitis, body aches, blood in the stool. PAST MEDICAL HISTORY Diagnosis Date - Black spider bite 10/2007 - Cervical radiculopathy - CHI (closed head injury) 20 years ago. 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 PAST SURGICAL HISTORY Procedure Laterality Date - AMPUTATION FINGER/THUMB 05/29/10 Traumatic, Right middle, ring and distal - BACK SURGERY HX - CHOLECYSTECTOMY HX - COLONOSCOPY 11/20 - COLONOSCOPY 03/2016 - EGD W/O OR W/BRUSH/WASH 06/24/13 EGD - HERNIA REPAIR HX 2013 umbilical - HERNIA REPAIR HX Bilateral 05/2016 Bilateral Inguinal Hernia repair - ORTHOPEDICS SURGERY HX - PAST SURGICAL HISTORY OF 1993 lumbar diskectomy - REMOVAL GALLBLADDER 1998 laparoscopic - REMOVE TONSIL AND ADENOI UNDER AGE 13 remote - ROTATOR CUFF REPAIR 05/24/11 Right Shoulder - ROTATOR CUFF REPAIR 07/10/11 Left shoulder - TONSILLECTOMY HX FAMILY HISTORY Problem Relation Age of Onset - Emphysema Mother - Cancer Mother lung/glioblastoma(Brain) - Thyroid Mother - Heart Mother - other (charcot samir tooth) Mother - other (GBM) Mother - Coronary Artery Disease Father MA and CABG - other (MS) Daughter - Lipids Paternal Grandfather - Lipids Brother - Psychiatry Sister - Kidney Disease Daughter - Psychiatry Daughter bipolar disorder Social History Social History Main Topics - Smoking status: Current Every Day Smoker Packs/day: 0.25 Years: 45.00 Types: Cigarettes Start date: 04/08/1977 - Smokeless tobacco: Never Used - Alcohol use No Comment: none - Drug use: No - Sexual activity: Not Currently Partners: Female ALLERGIES Allergen Reactions - Hydrocodone GI Upset Feels like bleeding Inside stomach - Lyrica [Pregabalin] Intolerance - Aubagio [Teriflunom* Other: See Comments Passed out - Bentyl [Dicyclomine* Other: See Comments - Celexa [Citalopram * Other: See Comments Terrible headaches. - Copaxone [Glatirame* Rash, Itching - Cymbalta [Duloxetin* Other: See Comments chest pain, abnormal sensation/feeling in chest - Erythromycin Other: See Comments turns everything to stone inside my bowels - Fenofibrate Intolerance chest pain and numbness - Hctz [Amiloride-Hyd* Other: See Comments Tripping, falling, no sense of balance - Lipitor [Atorvastat* Other: See Comments ruq PAIN - Miralax [Polyethyle* Swelling, GI Upset Swollen abdomen - go lightly - Mobic [Meloxicam] Itching - Morphine Other: See Comments Side pain - Penicillins Rash high fevers - Pravastatin Other: See Comments Muscle soreness - Prilosec [Omeprazol* Other: See Comments increased abdominal pressure, travels up to the chest area - Reglan [Metoclopram* GI Upset Also gives chest pain - Welchol [Colesevela* Other: See Comments Abdomen and chest pain - Xifaxan [Rifaximin] Other: See Comments Insomnia Review of Systems Constitutional: Negative for activity change, appetite change, chills, diaphoresis, fatigue and fever. HENT: Negative for rhinorrhea, sore throat and trouble swallowing. Eyes: Negative for photophobia and visual disturbance. Respiratory: Negative for cough and shortness of breath. Cardiovascular: Negative for chest pain, palpitations and leg swelling. Gastrointestinal: Positive for abdominal pain. Negative for constipation, diarrhea, nausea and vomiting. Genitourinary: Positive for difficulty urinating. Negative for dysuria and hematuria. Musculoskeletal: Negative for myalgias. Skin: Negative for color change. Neurological: Negative for light-headedness, numbness and headaches. Psychiatric/Behavioral: Negative for confusion. Physical Exam BP 161/91 Pulse 91 Temp (Src) 97.9 (Oral) Resp 16 Ht 5' 11 (1.80m) Wt 187 lb (84.8kg) SpO2 97% BMI 26.09 kg/(m2). Physical Exam Constitutional: He is oriented to person, place, and time. He appears well-developed and well-nourished. No distress. HENT: Right Ear: External ear normal. Left Ear: External ear normal. Mouth/Throat: Oropharynx is clear and moist. No oropharyngeal exudate. Eyes: Pupils are equal, round, and reactive to light. Conjunctivae and EOM are normal. Neck: Normal range of motion. Neck supple. Cardiovascular: Normal rate and regular rhythm. No murmur heard. Pulmonary/Chest: Effort normal and breath sounds normal. No respiratory distress. Abdominal: Soft. Bowel sounds are normal. He exhibits no distension and no mass. There is no tenderness. There is no rebound and no guarding. No hernia. Musculoskeletal: He exhibits no edema. Neurological: He is alert and oriented to person, place, and time. Skin: He is not diaphoretic. No pallor. Psychiatric: His behavior is normal. Diagnostic Testing ED Labs Ordered and Reviewed BASIC METABOLIC PNL - Abnormal; Notable for the following: Result Value Ref Range Glucose 139 (*) 74 - 99 mg/dL Creatinine 0.71 (*) 0.73 - 1.22 mg/dL Sodium 134 (*) 136 - 144 mmol/L CO2 21 (*) 22 - 30 mmol/L All other components within normal limits URINALYSIS WITH MICROSCOPIC - Abnormal; Notable for the following: Ketones, Urine Trace (*) Negative Hemoglobin/Blood,Ur 2+ (*) Negative RBC, Urine 3-5 (*) 0 - 3 /HPF Cast SEE COMMENT (*) 0 /LPF All other components within normal limits EKG NSR, no signs of acute ischemia/injury/infarct, no significant change from prior Bed side bladder scanner before urination 200-260 Procedures ED Course / Clinical Impression Clinical Impressions as of Feb 02 2325 Difficulty urinating Chronic abdominal pain Tobacco abuse counseling Course: Vital signs were reviewed. Triage records were reviewed. Medical records were reviewed. Nursing notes were reviewed and incorporated. The attending who evaluated and managed this patient was Eugenio Reynoso . MDM / Disposition / Plan MDM 57-year-old male here for evaluation of difficulty urinating he notes this has been ongoing issues for the past 2 years. He is has seen urology for this in the past where he was advised to self cath, patient reports he did not want to attempt to do this. He is non-toxic, afebrile appearing, well-hydrated, with no abdominal distention, bladder scan performed with 200 -260 cc of urine in bladder, this is not concerning or consistent with urinary retention at this point. UA performed with no signs of UTI, small amounts of red related to straight catheter. There is no signs of renal failure patient is making urine. These are similar complaint the patient continues to come to several emergency rooms in several different hospitals for, he is again referred to urology and to obtain internal medicine doctor for further treatment and evaluation. He stable at this point for outpatient management. Plan 1) Obtain a PCP for further treatment and evaluation of ongoing issues, call to schedule an appointment 2) Follow up with Urology for further treatment and evaluation of urinary issues, call to make appointment 3) Take one tablet of Norvasc 10 mg once per day for control of blood pressure SIGNATURE: VINNY Cesar Pa-C 02/02/182017 Attending Note I have personally performed a face to face assessment of the patient and have reviewed the PA/MANAGER DIGITAL AD OPERATIONS note. My donovan findings include: 57 yo M presents to [facility] ER c/o difficulty passing urine. He states last void ~ 24 hours ago. He also c/o abdominal pin since hernia surgery May 2016. He has been in numerous ER's per [facility] EMR including [facility], [facility], [facility] and [facility] in [place] where he was admitted 23 hr obs for HTN. pt states he sees a psychiatrist for Rx for ativan and remeron but that psychiatrist is moving away from area. He states he does not have PMD and lacks explanation why he seeks repeated help in ER without PMD. He does not have Rx for Amlodipine because the Rx he had ran out. bladder scan < 200 ml, no UTI, no renal failure. Patient referred to outpatient clinic internal medicine, urology. Rx for amlodipine 10 mg x 1 week. Patient counseled on smoking cessation ~ 7 minutes. Other additions or changes: None Signature: Eugenio Reynoso MD Date: 02/02/2018 Time: 11:11 PM Eugenio Reynoso MD 02/02/18 2325 ED NOTE Observed: 02/02/2018 Status: COMPLETED Source: [place] 10:23 AM [facility] REPOSITORY HNO ID: [id number] Author: Brianda Polo RN Service: Emergency Medicine Author Type: Registered Nurse Type: ED Notes Filed: 02/02/2018 10:24 AM Note Text: Pt bladder scanned for a volume of 227ml. PA at bedside. ED NOTE Observed: 02/02/2018 Status: COMPLETED Source: [place] 10:08 AM [facility] REPOSITORY HNO ID: [id number] Author: Brianda Polo RN Service: Emergency Medicine Author Type: Registered Nurse Type: ED Notes Filed: 02/02/2018 10:17 AM Note Text: Assumed care of patient. Pt. comes to ED for multiple compaints. Pt states that he has generalized chronic pain r/t hernia repair in May. Pt states he has LOC daily since the surgery: Since then I pass out every day when I go to my kitchen. States he has seen multiple surgeons who won't touch me in regards to reversing the surgery. Also c/o urinary retention since yesterday morning. Denies burning, urgency, frequency. Pt. is alert and oriented X 4. ABC's intact, respirations even and unlabored. Lungs clear all lobes. Skin acyanotic, warm and dry. Abdomen is soft and non-tender. Heart RRR, slightly tachycardic at 102. BS X 4. C/O CP/SOB, numbness/tingling, weak/dizzy, fever/chills since hernia surgery. Sitting comfortably in bed, no acute distress noted. VSS. Will notify MD of any acute changes. Side rails up x2, bed in lowest locked position, call light within reach, ID and allergy band on. ED NOTE Observed: 02/02/2018 Status: COMPLETED Source: [place] 9:44 AM [facility] REPOSITORY O ID: [id number] Author: Deneen (Rn) KIMBERLEE Villalta Service: Emergency Medicine Author Type: Registered Nurse Type: ED Notes Filed: 02/02/2018 9:45 AM Note Text: Pt walked into triage for c/o lower mid abd.pain, chest discomfort and diff voiding for greater than 1 week. States last time he voided was yesterday morning. EMERGENCY DEPARTMENT Observed: 02/01/2018 Status: F Source: [facility] 11:47 PM [facility] REPOSITORY [facility] Medical Records Department [address] [place] [address] Emergency Department Summary 02/01/18 1844 MR#: [id number] Acct: [id number] Name: OLIVER CUNNINGHAM Rep #: [id number] : 1960 57 From: Lenny Eubanks MD PCP: Care Physician, No Primary Status: DEP ER - ER Visit Summary Date of Service: 02/01/18 Chief Complaint: Abdominal pain History of Present Illness: The patient is a 57 M with right lower quadrant abdominal pain. He describes it as a crushing pain. He has had this pain for months. He says he cannot keep anything down but has not vomited or tried. He believes the pain stems from mesh implantation after hernia repair years ago. He has seen multiple surgeons for this and he was told by the surgeons who evaluated him that they could not help his symptoms. He had some diarrhea yesterday. Denies fevers. Denies any urinary symptoms. Patient was seen yesterday for abdominal pain and chest pain. He had a negative workup yesterday. He was at an outside emergency department earlier today and discharged. Physical Examination: Afebrile and vital signs unremarkable except for a blood pressure of 161/85 and a heart rate of 117. Patient is alert and oriented. No acute distress. Sitting comfortably. Moving comfortably. Heart tachycardic but regular. Lungs clear. Abdomen is soft, nontender, nondistended, normal bowel sounds, no masses. There is no tenderness, guarding, or rebound. Back is nontender. Skin appears normal. Test Results: Abdominal x-ray series showed a nonspecific bowel gas pattern. Patient was treated with Toradol, Zofran, and he had a PO challenge. Emergency Department Course and Treatment: I reviewed the patient's previous workups. His workup here consisted of x-rays was unremarkable. Symptoms are consistent with his chronic pain. There is no pain at McBurney's point. He has no new or different symptoms. I do not believe repeat blood work or imaging would be beneficial for this patient, furthermore it could be harmful. I advised the patient that he needs to follow-up with his patients surgeons. Treatment Plan: As above Disposition: Discharge Impression: 1. Right lower quadrant abdominal pain This note was generated with [employer] dictation software. It may contain incorrect words, spelling, and punctuation that were not noted in review of the chart prior to signing ED Disposition - Plan for ED Patient: Chief Complaint: Abd Pain Referrals: Care Physician,No Primary [Primary Care Provider] - What to do if you have Problems For any increased pain, shortness of breath, bleeding, nausea or vomiting, chest pain, or any unexpected problems, contact your Primary Care Provider. Call [facility] ([phone]) or report to the closest Emergency Room. Call 911 if necessary. 02/01/18 3036 <Electronically signed by Lenny Eubanks MD> Date Lenny Eubanks MD Cosigner Signature (If Indicated): Date CC: No Primary Care Physician DISCHARGE INSTRUCTION Observed: 02/01/2018 Status: F Source: [place] 11:47 PM [facility] Medical Records Department [address] [place] [address] Discharge Instruction 02/01/188 MR#: [id number] Acct: [id number] Name: OLIVER CUNNINGHAM Rep #: [id number] : 1960 57 From: Lenny Eubanks MD PCP: Care Physician, No Primary Status: DEP ER ED Disposition - Plan for ED Patient: Chief Complaint: Abd Pain Instructions: ED Abdominal Pain Unkn Cause Male What to do if you have Problems For any increased pain, shortness of breath, bleeding, nausea or vomiting, chest pain, or any unexpected problems, contact your Primary Care Provider. Call [facility] ([phone]) or report to the closest Emergency Room. Call 911 if necessary. 02/01/18 0690 <Electronically signed by Lenny Eubanks MD> Date Lenny Eubanks MD Cosigner Signature (If Indicated): Date CC: No Primary Care Physician ACUTE ABDOMEN INC Observed: 02/01/2018 Status: F Source: [place] CHEST 5:24 PM [facility] Imaging Services [address] [place] [address] Acute Abdomen Inc Chest MR#: [id number] Acct: [id number] Name: OLIVER CUNNINGHAM Rep #: [id number] : 1960 M 57 From: Oneida Peter MD PCP: Care Physician, No Primary Status: REG ER Study: Acute Abdomen Inc Chest Date of Exam: 02/01/18 Exam# [id number] Ordering Dr: Lenny Eubanks MD STUDY: X-RAY - ACUTE ABDOMINAL SERIES REASON FOR EXAM: Male, 57 years old. Lower abdominal pain. TECHNIQUE: Single view of the chest. Supine, 3 view(s) of the abdomen were obtained. COMPARISON: January 31, 2018 FINDINGS: The lungs are clear and expanded. Normal size heart. Normal mediastinum and zachary. Normal visualized pulmonary arteries. Normal visualized aortic arch and descending thoracic aorta. There are air-fluid levels within nondistended loops of bowel, a nonspecific bowel gas pattern. The soft tissue structures of the abdomen and pelvis are unremarkable. There are surgical clips within the right upper quadrant consistent with prior cholecystectomy. Normal visualized osseous structures. RAD/Acute Abdomen Inc Chest IMPRESSION: Nonspecific bowel gas pattern. Electronically Signed: Oneida Peter MD at 18:34 EDT Tel , Service support , CC: No Primary Care Physician; Lenny Eubanks MD Nutrition Services Worker: Signed ED NOTE Observed: 01/31/2018 Status: COMPLETED Source: [place] 4:58 PM CLINIC OTHER CAMPUS REPOSITORY HNO ID: [id number] Author: Quita Vivas (Medic) Service: Emergency Medicine Author Type: Child Custody Evaluator and Order Department Supervisor Type: ED Notes Filed: 02/03/2018 11:30 AM Note Text: Emergency Services: ED Call Back Questionnaire SERVICE DATE: 01/31/2018 Are you feeling better? No Any questions about discharge instructions and follow-up care? No Were you able to make a follow up appointment? Yes Do you have any further questions? No Is there anything that we could have done differently to improve your ED visit? No SIGNATURE: Quita Vivas PATIENT NAME: Oliver Cunningham DATE: February 03, 2018 TIME: 11:22 AM ED PROV NOTE Observed: 01/31/2018 Status: COMPLETED Source: [place] 4:01 PM CL[facility]IC OTHER CAMPUS REPOSITORY HNO ID: [id number] Author: Angel Fontana (Pa) Service: Emergency Medicine Author Type: Physician Circuit Tester Type: ED Provider Notes Filed: 01/31/2018 4:54 PM Note Text: ED Provider Note Patient Name: Oliver Cunningham SERVICE DATE: 01/31/18 History Patient presents with: Abdominal Pain: felt crushing this am (was seen at [facility] this am) Nausea AND Vomiting: x1 this am Diarrhea: once this am and once this afternoon 57 year old male with a past medical history of chronic abdominal pain, multiple sclerosis, hyperlipidemia, hypertension, presents to the emergency department a chief complaint of exacerbation of his chronic abdominal pain since this morning. Patient states that he woke up this morning and felt a crushing pain in his abdomen. He went to [facility] and had an evaluation this morning and patient was discharged home. Patient states he does not feel any better. He states that they margaux labs on him, they did an x-ray as well as an EKG and told him everything was fine and discharged him home. He states he has had this abdominal pain since they put the piece of MASH in his abdomen for his hernia in 2015. He has seen his old surgeon who refuses to remove the hernia and actually fired the patient from his service. He has seen multiple other surgeons who will not do any surgery on him. He states this pain feels very similar to his previous abdominal pain. He has had two episodes of diarrhea, denies any dark tarry stools, chest pain or back pain. PAST MEDICAL HISTORY Diagnosis Date - Black spider bite 10/2007 - Cervical radiculopathy - CHI (closed head injury) 20 years ago. 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 PAST SURGICAL HISTORY Procedure Laterality Date - AMPUTATION FINGER/THUMB 05/29/10 Traumatic, Right middle, ring and distal - BACK SURGERY HX - CHOLECYSTECTOMY HX - COLONOSCOPY 11/20 - COLONOSCOPY 03/2016 - EGD W/O OR W/BRUSH/WASH 06/24/13 EGD - HERNIA REPAIR HX 2013 umbilical - HERNIA REPAIR HX Bilateral 05/2016 Bilateral Inguinal Hernia repair - ORTHOPEDICS SURGERY HX - PAST SURGICAL HISTORY OF 1993 lumbar diskectomy - REMOVAL GALLBLADDER 1998 laparoscopic - REMOVE TONSIL AND ADENOI UNDER AGE 13 remote - ROTATOR CUFF REPAIR 05/24/11 Right Shoulder - ROTATOR CUFF REPAIR 07/10/11 Left shoulder - TONSILLECTOMY HX FAMILY HISTORY Problem Relation Age of Onset - Emphysema Mother - Cancer Mother lung/glioblastoma(Brain) - Thyroid Mother - Heart Mother - other (charcot samir tooth) Mother - other (GBM) Mother - Coronary Artery Disease Father MA and CABG - other (MS) Daughter - Lipids Paternal Grandfather - Lipids Brother - Psychiatry Sister - Kidney Disease Daughter - Psychiatry Daughter bipolar disorder Social History Social History Main Topics - Smoking status: Current Every Day Smoker Packs/day: 0.25 Years: 45.00 Types: Cigarettes Start date: 04/08/1977 - Smokeless tobacco: Never Used - Alcohol use No Comment: none - Drug use: No - Sexual activity: Not Currently Partners: Female ALLERGIES Allergen Reactions - Hydrocodone GI Upset Feels like bleeding Inside stomach - Lyrica [Pregabalin] Intolerance - Aubagio [Teriflunom* Other: See Comments Passed out - Bentyl [Dicyclomine* Other: See Comments - Celexa [Citalopram * Other: See Comments Terrible headaches. - Copaxone [Glatirame* Rash, Itching - Cymbalta [Duloxetin* Other: See Comments chest pain, abnormal sensation/feeling in chest - Erythromycin Other: See Comments turns everything to stone inside my bowels - Fenofibrate Intolerance chest pain and numbness - Hctz [Amiloride-Hyd* Other: See Comments Tripping, falling, no sense of balance - Lipitor [Atorvastat* Other: See Comments ruq PAIN - Miralax [Polyethyle* Swelling, GI Upset Swollen abdomen - go lightly - Mobic [Meloxicam] Itching - Morphine Other: See Comments Side pain - Penicillins Rash high fevers - Pravastatin Other: See Comments Muscle soreness - Prilosec [Omeprazol* Other: See Comments increased abdominal pressure, travels up to the chest area - Reglan [Metoclopram* GI Upset Also gives chest pain - Welchol [Colesevela* Other: See Comments Abdomen and chest pain - Xifaxan [Rifaximin] Other: See Comments Insomnia Review of Systems Constitutional: Negative for chills and fever. HENT: Negative for congestion, drooling, ear pain, mouth sores, sinus pressure, sore throat, tinnitus and trouble swallowing. Eyes: Negative for photophobia and visual disturbance. Respiratory: Negative for cough, chest tightness, shortness of breath and wheezing. Cardiovascular: Negative for chest pain and palpitations. Gastrointestinal: Positive for abdominal pain, nausea and vomiting. Negative for abdominal distention, anal bleeding and constipation. Genitourinary: Negative for dysuria, flank pain and hematuria. Musculoskeletal: Negative for arthralgias, gait problem, neck pain and neck stiffness. Skin: Negative for color change. Neurological: Negative for dizziness, seizures and numbness. Psychiatric/Behavioral: Negative for agitation and confusion. The patient is not nervous/anxious. Physical Exam BP 146/88 Pulse 102 Temp (Src) 97.9 (Oral) Resp 18 Ht 5' 11 (1.80m) Wt 187 lb (84.8kg) SpO2 95% BMI 26.09 kg/(m2). Physical Exam Constitutional: He is oriented to person, place, and time. He appears well-developed and well-nourished. HENT: Head: Normocephalic and atraumatic. Head is without raccoon's eyes and without Alfred's sign. Right Ear: Hearing normal. Left Ear: Hearing normal. Nose: Right sinus exhibits no maxillary sinus tenderness and no frontal sinus tenderness. Left sinus exhibits no maxillary sinus tenderness and no frontal sinus tenderness. Eyes: Conjunctivae and EOM are normal. Neck: Normal range of motion. Neck supple. Cardiovascular: Normal rate. Pulmonary/Chest: Effort normal. Abdominal: Soft. He exhibits no distension and no mass. There is no tenderness. There is no rebound and no guarding. No hernia. Abdomen is soft. Bowel sounds active in all 4 quadrants. TTP over the suprapubic quadrant. There is no guarding or rebound tenderness on exam, no murphys or McBurneys, no mass or hernia appreciated on exam, no CVA tenderness Musculoskeletal: Normal range of motion. Neurological: He is alert and oriented to person, place, and time. He displays no atrophy and no tremor. He displays a negative Romberg sign. He displays no seizure activity. Gait normal. Skin: Skin is warm and dry. Psychiatric: He has a normal mood and affect. His behavior is normal. Diagnostic Testing ED Labs Ordered and Reviewed - No data to display Procedures ED Course / Clinical Impression Clinical Impressions as of Jan 31 1642 Chronic abdominal pain (R10.9, G89.29) Chronic abdominal pain (primary encounter diagnosis) Comment: acute Plan: Rest Home pain meds Fluids See gen surgeon as scheduled Return to ed if sx worsen MDM / Disposition / Plan The medical record is reviewed.Triage note is reviewed and incorporated. The nursing note is reviewed and consistent with patient's history and physical exam findings. The vital signs were reviewed the the vital signs are : BP 146/88 Pulse (!) 102 Temp 36.6 ?C (97.9 ?F) (Oral) Resp 18 Ht 180.3 cm (5' 11) Wt 84.8 kg (187 lb) SpO2 95% BMI 26.08 kg/m? MDM: This is a well-appearing male with a pmh of chronic abdominal pain who presents to the ED with a chief complaint of abdominal pain who is, afebrile , hemodynamically stable, in no acute distress patient . Based on patient's pmh, chief complaint and physical exam findings, differential diagnoses include acute abdomen vs pancreatitis, vs SBO, vs uti vs anxiety vs malingering. Based on patient's physical exam findings, clinical picture, lab results and imaging studies that were performed here today in the ED, at this time, the following differential diagnoses such as acute abdomen is less likely due to unremarkable exam and history. Patient has had multiple visits to the ED for his chronic abdominal pain. He has had this pain for over 2 years since the [facility] was put in. He tells me that he has seen multiple general surgeons and no One will touch him. He went to [facility] ED this morning for the same complaint in which he had multiple workups including labs, chest x-ray, EKG, that all came back unremarkable and patient was discharged home. He does not feel any worse and this morning. I did have a long discussion with the patient about him needing to follow-up with a general surgeon and this cannot be fixed here in the ED. At this time I do not think that there is an acute abdomen therefore further labs or imaging is not needed at this time. I did tell the patient that if symptoms do worsen that he is more than welcome to come back for further evaluation. Patient is agreeable with the plan. The patient has remained hemodynamically stable throughout the entire ED visit and is without objective evidence for acute process requiring urgent intervention or hospitalization. The patient and/or family had all the tests and diagnosis explained to them and were given both verbal and written discharge instructions. I answered the patient's question as well as family to the best of my ability. The patient is stable for discharge, and pt is instructed to follow up with pcp and educated to return to ed if sx worsen or any new symptoms. Pt agreeable with plan. At this time, based on the patient's history, physical exam findings, lab results and clinical picture , the most likely diagnosis is chronic abdominal pain Pt educated on the most common causes of Chronic abdominal pain Pt instructed to follow up with PCP in 1-2 days Discharge care instructions, medications, follow up instructions, and reasons to return to the ED immediately, such as worsening of symptoms or any new symptoms, were provided verbally and in writing to patient (patient guardian / medical detail representative), who verbalized understanding. This note was partially generated using [employer] voice recognition system, and there may be some incorrect words, spellings, and punctuation that were not noted in checking the note before saving The patient was DISCHARGED: Counseled patient and family regarding suspected diagnosis AND need for follow-up. Discharged home with verbal and written instructions. They were instructed to return as needed for persistent or worsening symptoms or any new concerns. Condition at time of disposition: stable SIGNATURE: VINNY Fair (Pa) 01/31/18 1654 ED NOTE Observed: 01/31/2018 Status: COMPLETED Source: [place] 3:22 PM CLINIC OTHER CAMPUS REPOSITORY HNO ID: [id number] Author: Darvin Nuñez) KIMBERLEE Arango Service: (none) Author Type: Registered Nurse Type: ED Notes Filed: 01/31/2018 3:25 PM Note Text: Patient presents with c/o abd pain (crushing feeling), started this am, vomited x 1 this am and diarrhea this am and this afternoon. Patient was seen at [facility] this am had xray and ekg, was told he was fine. Patient states he was in [place] last week and hospitalized. Had bilateral inguinal hernia repair with mesh in May 2016 and has been having troubles ever since he says EMERGENCY DEPARTMENT Observed: 01/31/2018 Status: F Source: [place] SUMMARY 9:29 AM [facility] REPOSITORY [facility] Medical Records Department [address] [place] [address] Emergency Department Summary 01/31/18 0810 MR#: [id number] Acct: [id number] Name: OLIVER CUNNINGHAM Rep #: [id number] : 1960 57 From: Vinh Monae DO PCP: Care Physician, No Primary Status: REG ER - ER Visit Summary Date of Service: 01/31/18 Chief Complaint: Chest pain and abdominal pain History of Present Illness: The patient is a 57 M who presents with lower abdominal pain that became worse today. Patient states he started having some nausea and vomiting today. Patient states he has been having some intermittent pain in his chest. Patient describes it as a heaviness. Patient states nothing makes it better or worse. Patient does admit to some shortness of breath and a cough as well. Patient denies any fevers. Patient denies any lightheadedness or dizziness. Patient denies any palpitations. Patient has a history of chronic right lower quadrant abdominal pain that he states is from a herniorrhaphy several years ago. Physical Examination: Vital signs are stable except for a mild tachycardia of 109 and a slightly elevated blood pressure 161/101. Patient is afebrile. Patient is in no acute distress. Oral mucosa is pink and moist. Neck is supple. Trachea is midline. There is no JVD noted. Heart was regular and tachycardic. Lungs showed expiratory wheezing. There is good respiratory effort noted. Abdomen is soft. Bowel sounds are normal. There is some right lower quadrant tenderness. There is no rebound or guarding noted. Cranial nerves II through XII are intact. There are no focal motor or sensory deficits noted. The remaining physical exam is within normal limits. Test Results: EKG showed a sinus tachycardia with a rate of 112. There are nonspecific ST-T wave changes in the inferior leads. This was unchanged compared to previous EKG dated 01/27/2018. PA and lateral chest x-ray was obtained. A CBC, comprehensive metabolic profile, lipase, and urinalysis were obtained and were all essentially within normal limits. Emergency Department Course and Treatment: Patient was given IV fluids, Toradol, and Zofran here. Patient was given an albuterol aerosol. Patient still complained of some mild lower abdominal pain. Patient was given a dose of morphine. Patient was more concerned with his right lower abdominal pain then his chest pain. Patient currently denies any chest pain. Patient was instructed to follow-up with his primary care physician for further evaluation. Patient understood and was agreeable with the plan. All questions were answered. Disposition: Discharge home Impression: Exacerbation of chronic right lower abdominal pain This note was generated with [employer] dictation software. It may contain incorrect words, spelling, and punctuation that were not noted in review of the chart prior to signing ED Disposition - Plan for ED Patient: Disposition: Home or Assisted Living Chief Complaint: Other, Pain/Inj Diagnosis: Right lower quadrant abdominal pain of unknown etiology Instructions: ED Chronic Pain Management Referrals: Care Physician,No Primary [Primary Care Provider] - What to do if you have Problems For any increased pain, shortness of breath, bleeding, nausea or vomiting, chest pain, or any unexpected problems, contact your Primary Care Provider. Call [facility] ([phone]) or report to the closest Emergency Room. Call 911 if necessary. 01/31/18 0929 <Electronically signed by Vinh Monae DO> Date Vinh Monae DO Cosigner Signature (If Indicated): Date CC: No Primary Care Physician URINALYSIS, COMPLETE Collected: 01/31/2018 Status: F Source: [place] 9:00 AM [facility] REPOSITORY Order Comment: How was Urine Obtained? CLEAN CATCH TYPE CODE TESTS RESULT OUT OF RANGE REFERENCE UNITS LAB L400.3000 Yellow COLOR Normal Yellow LAB L400.3050 Clear Normal CLARITY Sl. Cloudy LAB L400.3200 Normal mg/dl Normal GLUCOSE, UR Normal LAB L400.3300 Negative mg/dL Normal BILIRUBIN URINE Negative LAB L400.3400 Negative mg/dl Normal KETONE UR Negative LAB L400.3465 1.002-1.030 Normal SP.GR. DIPSTX 1.015 LAB L400.3550 5.0 - 8.0 pH UR Normal 6.0 LAB L400.3600 Negative mg/dl PROT Normal DIPSTX Negative LAB L400.3700 Normal mg/dl Normal UROBILI Normal LAB L400.3750 Negative Normal NITRITE UR Negative LAB L400.3780 Negative /ul Normal OCCULT BLOOD-UR Negative LAB L400.3800 Negative /ul High LEUK 25 ESTERASE LAB L400.4050 0-5 /hpf WBC 0 Normal SEEN LAB L400.4100 0-5 /hpf 0 Normal RBC-UA SEEN LAB L400.4150 0-5 /hpf SQUAM Normal EPI 0-5 SEEN LAB L400.4300 None Seen /hpf 0 Normal BACTERIA SEEN LAB L400.4350 <or=2+ /hpf 0 Normal MUCUS, URINE SEEN Performed By: #### L400.0001 #### [facility] [address] [place], [place], [address] CBC W/DIFF, AUTOMATED Collected: 01/31/2018 Status: F Source: [place] 8:28 AM [facility] REPOSITORY TYPE CODE TESTS RESULT OUT OF RANGE REFERENCE UNITS LAB L100.1000 4.4-11.0 K/mm3 Normal WBC 6.2 LAB L100.1200 4.6-6.2 M/mm3 Normal RBC 4.63 LAB L100.1300 13.0-16.5 g/dl Normal HGB 15.2 LAB L100.1400 40-54 % Normal HCT 43.9 LAB L100.1500 80-94 fL High MCV 94.8 LAB L100.1600 27.0-32.0 pg High MCH 32.8 LAB L100.1700 32-36 g/gl Normal MCHC 34.6 LAB L100.1810 11.6-14.6 % Normal RDW CV 12.5 LAB L100.1820 35.1-43.9 fl Normal RDW SD 42.9 LAB L100.1900 150-450 K/mm3 Normal PLT 208 LAB L100.2000 6.2-12.0 fl Normal MPV 8.9 LAB L100.2100 47-70 % Normal NEUT% 57.7 LAB L100.2200 19-41 % Normal LY% 29.1 LAB L100.2300 0-10 % High MONO% 11.9 LAB L100.2400 0-5 % Normal EO% 0.8 LAB L100.2500 0-1 % Normal BASO% 0.3 LAB L100.2550 0.0-0.9 % Normal IM GRAN % 0.200 Result Comment: IG% - Immature Granulocytes (promyelocytes, myelocytes and metamyelocytes) > 1% indicates that a LEFT SHIFT is Present. LAB L100.2620 2.0-7.7 X10 3/uL Normal Absolute Neut 3.6 LAB L100.2720 0.83-4.51 X10 3/ul Normal Absolute Lymph 1.81 Performed By: #### L100.0100 #### [facility] [address] [place], [address] COMPREHENSIVE METABOLIC Collected: 01/31/2018 Status: F Source: [facility] 8:28 AM [facility] REPOSITORY TYPE CODE TESTS RESULT OUT OF RANGE REFERENCE UNITS LAB L501.0100 74-106 mg/dL High GLU 127 Result Comment: Fasting Glucose result greater than or equal to 126 mg/dL suggests DIABETES MELLITUS per A.D.A. criteria. Please note revised GLUCOSE reference range effective 2017. LAB L501.1000 7-18 mg/dL Normal BUN 7 LAB L501.1100 0.70-1.30 mg/dL Normal CREAT,SERUM 0.82 Result Comment: The validity of the calculated GFR AND GFRAA in patients over 70 years has not been determined. Clinical correlation is essential. LAB L501.1110 >60 mL/min Normal EST GFR 104 Result Comment: Non- GFR Calc LAB L501.1115 >60 mL/min Normal EST GFR - AA 125 Result Comment: GFR Calc LAB L501.1255 ml/min Normal Estimated CRCL 107.13 LAB L501.1300 10-20 RATIO Low BUN/CRE 8.6 LAB L501.1500 6.4-8. g/dL 2 T PROT Normal 6.7 LAB L501.1800 3.2-5. g/dL 0 ALB Normal 3.5 LAB L501.1950 2.2-4. g/dL 2 GLOB Normal 3.2 LAB L501.2000 0.9-2. RATIO 4 A/G Normal 1.1 LAB L501.2200 8.5-10 mg/dL Low .1 CA 8.1 LAB L501.4100 15-37 U/L Low AST 11 LAB L501.4305 45-117 U/L ALK P Normal 66 LAB L501.4405 16-61 U/L ALT Normal 21 LAB L501.4600 0.20-1 mg/dL .00 T BILI Normal 0.20 LAB L501.5300 136-14 mmol/L 5 NA Normal 137 LAB L501.5600 3.5-5. mmol/L 1 K Normal 3.7 LAB L501.5900 98-107 mmol/L CL Normal 102 LAB L501.6100 21.0-3 mmol/L 2.0 CO2 Normal 28.0 LAB L501.6200 5-15 GAP Normal 7 Performed By: #### L500.4050, L501.2450 #### [facility] [address] [place], [address] LIPASE Collected: 01/31/2018 Status: F Source: [place] 8:28 AM [facility] REPOSITORY TYPE CODE TESTS RESULT OUT OF RANGE REFERENCE UNITS LAB L501.2450 73-393 U/L Normal LIPASE 158 Performed By: #### L500.4050, L501.2450 #### [facility] [address] [place], [address] CHEST PA AND LATERAL Observed: 01/31/2018 Status: F Source: [place] 8:10 AM [facility] REPOSITORY [facility] Imaging Services [address] [place] [address] Chest PA and Lateral MR#: [id number] Acct: [id number] Name: OLIVER CUNNINGHAM Rep #: [id number] : 1960 M 57 From: Neftali Hernandez MD PCP: Care Physician, No Primary Status: REG ER Study: Chest PA and Lateral Date of Exam: 01/31/18 Exam# [id number] Ordering Dr: Vinh Monae DO STUDY: X-RAY CHEST REASON FOR EXAM: Male, 57 years old. Chest pain. Shortness of breath and dyspnea. History of emphysema. TECHNIQUE: PA and lateral views of the chest. COMPARISON: Comparison is made with prior examination dated January 27, 2018. FINDINGS: EKG electrodes are seen. Hyperinflation. Decreased bronchovascular markings in both lungs worse in the right upper lobe. This is suggestive of emphysema. No acute infiltration is seen. There is no demonstrated pleural abnormality. Normal size heart. Normal mediastinum and zachary. Normal visualized pulmonary arteries. Normal visualized aortic arch and descending thoracic aorta. There are mild degenerative changes of the visualized thoracic spine. Normal visualized ribs, clavicles, and shoulders. There is no demonstrated abnormality of the visualized soft tissue structures of the upper abdomen. RAD/Chest PA and Lateral IMPRESSION: Hyperinflation. No acute abnormality is seen. Electronically Signed: Neftali Hernandez MD at 8:56 EDT Tel [phone], Service support , CC: No Primary Care Physician; Vinh Monae DO Nutrition Services Worker: Signed 12 LEAD ELECTROCARDIOGRAM Observed: 01/29/2018 Status: F Source: [place] 1:27 PM [facility] REPOSITORY [facility] Cardiovascular Services [address] [place] [address] 12 Lead EKG 01/27/18 1011 MR#: [id number] Acct: [id number] Name: OLIVER CUNNINGHAM Rep #: [id number] : 1960 57 From: Jes Iverson MD Attending Dr: Status: [facility] ER Ordering Dr: Lenny Eubanks MD Date: 01/27/18 Location: ED Sex: M C Admitted: Test Reason : CP Blood Pressure : / mmHG Vent. Rate : 098 BPM Atrial Rate : 098 BPM P-R Int : 122 ms QRS Dur : 092 ms QT Int : 358 ms P-R-T Axes : 076 087 059 degrees QTc Int : 457 ms Normal sinus rhythm Nonspecific ST and T wave abnormality Confirmed by LENNY ESPAÑA, JES ([id number]), medical editor ASHLEY GARCIA ([id number]) on 01/29/2018 1:27:09 PM Referred By: OLAMIDE Confirmed By:JES IVERSON MD 01/29/18 1327 Date Jes Iverson MD CC: No Primary Care Physician; Lenny Eubanks MD Signed EMERGENCY DEPARTMENT Observed: 01/27/2018 Status: F Source: [place] SUMMARY 4:38 PM [facility] REPOSITORY [facility] Medical Records Department [address] [place] [address] Emergency Department Summary 01/27/18 1023 MR#: [id number] Acct: [id number] Name: OLIVER CUNNINGHAM Rep #: [id number] : 1960 57 From: Lenny Eubanks MD PCP: Care Physician, No Primary Status: DEP ER - ER Visit Summary Date of Service: 01/27/18 Chief Complaint: Chest pain History of Present Illness: The patient is a 57 M with crushing chest pain that started today. Nothing seemed to bring it on or make it worse. Nothing has seemed to make it better. He believes it is associated with his right lower quadrant abdominal pain that he has had for 5 years. He believes it is possibly related to MS medication that he stopped over a year ago. He also is concerned that it is artery pain. He has had multiple evaluations for artery problems. He has had CTs, CTAs, ABIs. He has never had vascular surgery or stents. He did have a cardiac catheterization in the past and a stress test about a month ago. He said these were normal. Patient denies cough or shortness of breath. Denies any history of PE. Denies leg swelling or calf pain. Denies hemoptysis. He denies any other GI symptoms. Denies fevers. Physical Examination: Hypertensive but otherwise vitals unremarkable. Afebrile. Alert and oriented. No acute distress. Heart regular rate and rhythm. Lungs clear. Abdomen soft and nontender. Good pulses, symmetric. Skin normal in color without pallor or diaphoresis. Test Results: EKG, laboratory studies, and chest x-ray are pending. Emergency Department Course and Treatment: Patient has had multiple evaluations for artery pain. He had an abdominal CT just over a month ago which was unremarkable. I am not sure what is causing his chronic right lower quadrant pain or what he describes as artery pain. The chest pain seems to be new. Will evaluate with labs, chest x-ray, and EKG. I do have low suspicion for coronary disease, dissection, PE, infection, pneumothorax, or any other emergent intrathoracic pathology. Workup was unremarkable. I cannot find an emergent cause for his artery pain. His chest pain workup is unremarkable. He had negative caths in the past. He had a stress test which was normal 1 month ago. I believe he is appropriate for outpatient follow-up. Patient was discharged. Return for any new or worsening issues. Treatment Plan: As above Disposition: Discharged Impression: 1. Chest pain unclear etiology This note was generated with [employer] dictation software. It may contain incorrect words, spelling, and punctuation that were not noted in review of the chart prior to signing ED Disposition - Plan for ED Patient: Chief Complaint: Chest Pain Referrals: Care Physician,No Primary [Primary Care Provider] - What to do if you have Problems For any increased pain, shortness of breath, bleeding, nausea or vomiting, chest pain, or any unexpected problems, contact your Primary Care Provider. Call [facility] ([phone]) or report to the closest Emergency Room. Call 911 if necessary. 01/27/18 4381 <Electronically signed by Lenny Eubanks MD> Date Lenny Eubanks MD Cosigner Signature (If Indicated): Date CC: No Primary Care Physician DISCHARGE INSTRUCTION Observed: 01/27/2018 Status: F Source: [place] 4:38 PM [facility] REPOSITORY [facility] Medical Records Department [address] [address] Discharge Instruction 01/27/18 1155 MR#: [id number] Acct: [id number] Name: OLIVER CUNNINGHAM Rep #: [id number] : 1960 57 From: Lenny Eubanks MD PCP: Care Physician, No Primary Status: DEP ER ED Disposition - Plan for ED Patient: Chief Complaint: Chest Pain Instructions: ED Chest Pain Atypical Unkn Cause Referrals: Care Physician,No Primary [Primary Care Provider] - What to do if you have Problems For any increased pain, shortness of breath, bleeding, nausea or vomiting, chest pain, or any unexpected problems, contact your Primary Care Provider. Call [facility] ([phone]) or report to the closest Emergency Room. Call 911 if necessary. 01/27/18 1638 <Electronically signed by Lenny Eubanks MD> Date Lenny Eubanks MD Cosigner Signature (If Indicated): Date CC: No Primary Care Physician CBC W/DIFF, AUTOMATED Collected: 01/27/2018 Status: F Source: [place] 10:40 AM [facility] REPOSITORY TYPE CODE TESTS RESULT OUT OF RANGE REFERENCE UNITS LAB L100.1000 4.4-11.0 K/mm3 Normal WBC 7.0 LAB L100.1200 4.6-6.2 M/mm3 Normal RBC 4.93 LAB L100.1300 13.0-16.5 g/dl Normal HGB 15.8 LAB L100.1400 40-54 % Normal HCT 46.9 LAB L100.1500 80-94 fL High MCV 95.1 LAB L100.1600 27.0-32.0 pg Normal MCH 32.0 LAB L100.1700 32-36 g/gl Normal MCHC 33.7 LAB L100.1810 11.6-14.6 % Normal RDW CV 12.9 LAB L100.1820 35.1-43.9 fl High RDW SD 44.9 LAB L100.1900 150-450 K/mm3 Normal PLT 214 LAB L100.2000 6.2-12.0 fl Normal MPV 8.9 LAB L100.2100 47-70 % Normal NEUT% 65.4 LAB L100.2200 19-41 % Normal LY% 23.4 LAB L100.2300 0-10 % High MONO% 10.7 LAB L100.2400 0-5 % Normal EO% 0.3 LAB L100.2500 0-1 % Normal BASO% 0.1 LAB L100.2550 0.0-0.9 % Normal IM GRAN % 0.100 Result Comment: IG% - Immature Granulocytes (promyelocytes, myelocytes and metamyelocytes) > 1% indicates that a LEFT SHIFT is Present. LAB L100.2620 2.0-7.7 X10 3/uL Normal Absolute Neut 4.6 LAB L100.2720 0.83-4.51 X10 3/ul Normal Absolute Lymph 1.65 Performed By: #### L100.0100 #### [facility] [address] [place], [address] BASIC METABOLIC Collected: 01/27/2018 Status: F Source: [place] [facility] 10:40 AM [facility] REPOSITORY TYPE CODE TESTS RESULT OUT OF RANGE REFERENCE UNITS LAB L501.0100 74-106 mg/dL High GLU 139 Result Comment: Fasting Glucose result greater than or equal to 126 mg/dL suggests DIABETES MELLITUS per A.D.A. criteria. Please note revised GLUCOSE reference range effective 2017. LAB L501.1000 7-18 mg/dL Normal BUN 9 LAB L501.1100 0.70-1.30 mg/dL Normal CREAT,SERUM 0.84 Result Comment: The validity of the calculated GFR AND GFRAA in patients over 70 years has not been determined. Clinical correlation is essential. LAB L501.1110 >60 mL/min Normal EST GFR 101 Result Comment: Non- GFR Calc LAB L501.1115 >60 mL/min Normal EST GFR - AA 122 Result Comment: GFR Calc LAB L501.1255 ml/min Normal Estimated CRCL 104.58 LAB L501.1300 10-20 RATIO BUN/CRE Normal 10.7 LAB L501.2200 8.5-10 mg/dL .1 CA Normal 8.6 LAB L501.5300 136-14 mmol/L 5 NA Normal 137 LAB L501.5600 3.5-5. mmol/L 1 K Normal 3.8 LAB L501.5900 98-107 mmol/L CL Normal 101 LAB L501.6100 21.0-3 mmol/L 2.0 CO2 Normal 29.0 LAB L501.6200 5-15 GAP Normal 7 Performed By: #### L500.2500, L501.4010 #### [facility] [address], [place], [address] TROPONIN-I Collected: 01/27/2018 Status: F Source: [place] 10:40 AM [facility] REPOSITORY TYPE CODE TESTS RESULT OUT OF RANGE REFERENCE UNITS LAB L501.4010 <0.045 ng/mL Normal < 0.015 TROPONIN-I Result Comment: TROPONIN-I EXPECTED VALUES <0.045 Negative 0.045 - 0.590 Consistent with Cardiac Damage > OR = 0.600 Critical Value Not every elevated troponin is indicative of MA. These values should be used with clinical judgement in examining the patient's clinical picture for diagnosis. To establish a diagnosis of MA versus myocardial injury, there must be a demonstrated rise and/or fall in the troponin values, in addition to ischemic symptoms, EKG changes, new regional wall motion abnormality, and/or angiographical evidence. PLEASE NOTE: REFERENCE RANGES EDITED 17 Performed By: #### L500.2500, L501.4010 #### [facility] [address] [facility] [place], [place], [address] CHEST 1 VIEW Observed: 01/27/2018 Status: F Source: [place] (PORTABLE) 10:31 AM [facility] REPOSITORY [facility] Imaging Services [address] [place] [address] Chest 1 View (Portable) MR#: [id number] Acct: [id number] Name: OLIVER CUNNINGHAM Rep #: [id number] : 1960 M 57 From: Neftali Hernandez MD PCP: Care Physician, No Primary Status: REG ER Study: Chest 1 View (Portable) Date of Exam: 01/27/18 Exam# [id number] Ordering Dr: Lenny Eubanks MD STUDY: X-RAY CHEST REASON FOR EXAM: Male, 57 years old. Chest pain and right upper quadrant abdominal pain. TECHNIQUE: Single AP portable view of the chest. COMPARISON: Comparison is made with prior study dated November 20, 2017. FINDINGS: EKG electrodes are seen. Hyperinflation. Decreased bronchovascular markings in both lungs worse in the right upper lung suggestive of emphysematous changes and possible bullous formation. There is no demonstrated pleural abnormality. Normal size heart. Normal mediastinum and zachary. Normal visualized pulmonary arteries. Normal visualized aortic arch and descending thoracic aorta. Normal visualized thoracic spine. Normal visualized ribs, clavicles, and shoulders. There is no demonstrated abnormality of the visualized soft tissue structures of the upper abdomen. RAD/Chest 1 View (Portable) IMPRESSION: Hyperinflation. Findings suggestive of emphysema. Electronically Signed: Neftali Hernandez MD at 11:22 EDT Tel [phone], Service support , CC: No Primary Care Physician; Lenny Eubanks MD Nutrition Services Worker: Signed EMERGENCY DEPARTMENT Observed: 01/26/2018 Status: F Source: [place] SUMMARY 6:09 PM [facility] REPOSITORY [facility] Medical Records Department [address] [place] [address] Emergency Department Summary 01/26/18 1551 MR#: [id number] Acct: [id number] Name: OLIVER CUNNINGHAM Rep #: [id number] : 1960 57 From: Nelda Esteban MD PCP: Care Physician, No Primary Status: DEP ER - ER Visit Summary Date of Service: 01/26/18 Chief Complaint: Chronic pain History of Present Illness: The patient is a 57 M who presents with chronic pain for the last 1+ years since being on a medication called Cyndie. Patient has been off his medication for a year. He states since that time it feels like there are metal shards running through his bloodstream. He has had multiple workups and evaluations by multiple different physicians and surgeons. Recent arterial studies were performed and are normal. Patient states he is scheduled to see a surgeon at [facility] next month. He is currently taking Tylenol for his pain. He has not had fever or chills. He has not had vomiting. He last had a bowel movement this morning. Physical Examination: Vital signs are unremarkable. Patient sitting upright in bed no acute distress. Heart is regular rate and rhythm. Lung sounds are clear. Abdomen is soft with no focal tenderness on exam. He has active bowel sounds throughout. Neuro exam is unremarkable. Test Results: [] Emergency Department Course and Treatment: I did review the patient's recent arterial studies. At this time he has a normal exam and normal vital signs. This is been a chronic ongoing issue with multiple big workups in the past. I do not feel further workup is needed at this time. Patient does state that Toradol seems to help his pain somewhat better than naproxen. He will be given a prescription for Toradol tabs. He is to follow- up with a surgeon at [facility] next month as scheduled. Treatment Plan: [] Disposition: Discharge Impression: Chronic abdominal pain This note was generated with [employer] dictation software. It may contain incorrect words, spelling, and punctuation that were not noted in review of the chart prior to signing ED Disposition - Plan for ED Patient: Chief Complaint: Other, Pain/Inj Referrals: Care Physician,No Primary [Primary Care Provider] - What to do if you have Problems For any increased pain, shortness of breath, bleeding, nausea or vomiting, chest pain, or any unexpected problems, contact your Primary Care Provider. Call [facility] ([phone]) or report to the closest Emergency Room. Call 911 if necessary. 01/26/18 6234 <Electronically signed by Nelda Esteban MD> Date Nelda Esteban MD Cosigner Signature (If Indicated): Date CC: No Primary Care Physician DISCHARGE INSTRUCTION Observed: 01/26/2018 Status: F Source: [place] 3:54 PM [facility] REPOSITORY [facility] Medical Records Department [address] [place] [address] Discharge Instruction 01/26/18 1553 MR#: [id number] Acct: [id number] Name: OLIVER CUNNINGHAM Rep #: [id number] : 1960 57 From: Nelda Esteban MD PCP: Care Physician, No Primary Status: REG ER ED Disposition - Plan for ED Patient: Disposition: Home or Assisted Living Chief Complaint: Other, Pain/Inj Instructions: ED Chronic Pain Management Prescriptions: Ketorolac [Toradol] 10 mg PO Q6H PRN #20 tablet PRN Reason: Pain Additional Instructions: Follow-up with your surgeon at [facility] next month as scheduled. What to do if you have Problems For any increased pain, shortness of breath, bleeding, nausea or vomiting, chest pain, or any unexpected problems, contact your Primary Care Provider. Call [facility] ([phone]) or report to the closest Emergency Room. Call 911 if necessary. 01/26/18 1554 <Electronically signed by Nelda Esteban MD> Date Nelda Esteban MD Cosigner Signature (If Indicated): Date CC: No Primary Care Physician CBC Collected: 01/21/2018 Status: F Source: [facility] 12:29 PM [facility] REPOSITORY TYPE CODE TESTS RESULT OUT OF REFERENCE UNITS RANGE LAB WBC(LOINC) 4.60-10.80 10 3/mcL WBC 8.30 LAB RBCCT(LOINC 4.04-6.13 10 6/mcL ) RBC 4.96 LAB HGB(LOINC) 14.0-18.0 G/dL Hgb 15.7 LAB HCT(LOINC) 42.0-52.0 % Hct 47.4 LAB MCV(LOINC) 80.0-94.0 fL High MCV 95.6 LAB MCH(LOINC) 27.0-31.2 pg High MCH 31.7 LAB MCHC(LOINC) 31.8-35.4 G/dL MCHC 33.2 LAB RDW(LOINC) 11.5-14.5 % RDW 13.3 LAB PLT(LOINC) 130-400 10 3/mcL Platelet 256 LAB MPV(LOINC) 7.4-10.4 fL Low MPV 6.7 Performed By: #### CBC, ADIFF, ANEU #### [address] [address] #### BMP, GFR #### [address] [address] .AUTO DIFF Collected: 01/21/2018 Status: F Source: [facility] 12:29 [facility] REPOSITORY TYPE CODE TESTS RESULT OUT OF REFERENCE UNITS RANGE LAB PORSHA(LOINC) 37.0-80.0 % Neutrophil % 64.5 LAB LYM(LOINC) 10.0-50.0 % Lymphocyte % 26.4 LAB MON(LOINC) 1.7-13.0 % Monocyte % 7.9 LAB EO(LOINC) 0.0-7.0 % Eosinophil % 0.5 LAB BAS(LOINC) 0.0-2.5 % Basophil % 0.7 LAB ABLYM(LOIN 0.77-3.85 10 3/mcL C) Lymphocyte, 2.20 Absolute LAB NADIR(LOINC 0.15-1.00 10 3/mcL ) Monocyte, 0.70 Absolute LAB AEOS(LOINC 0.00-0.40 10 3/mcL ) Eosinophil, 0.00 Absolute LAB ABAS(LOINC 0.00-0.19 10 3/mcL ) Basophil, 0.10 Absolute Performed By: #### CBC, ADIFF, ANEU #### [address] [address] #### BMP, GFR #### [address] [address] .NEUABS Collected: 01/21/2018 Status: F Source: [facility] 12:29 PM [facility] REPOSITORY TYPE CODE TESTS RESULT OUT OF REFERENCE UNITS RANGE LAB ANEU(LOINC) 2.85-6.16 10 3/mcL Neutrophil, 5.40 Absolute Performed By: #### CBC, ADIFF, ANEU #### [address] [address] #### BMP, GFR #### [address] [address] BMP Collected: 01/21/2018 Status: F Source: [facility] 12:29 [facility] REPOSITORY TYPE CODE TESTS RESULT OUT OF REFERENCE UNITS RANGE LAB GLU(LOINC) 70-105 mg/dL Glucose High Level 112 LAB NA(LOINC) 136-145 mmol/L Sodium Level 141 LAB K(LOINC) 3.5-5.1 mmol/L Potassium Level 3.6 LAB CL(LOINC) 98-107 mmol/L Chloride 102 LAB CO2(LOINC) 22-29 mmol/L CO2 28 LAB EBAL(LOINC mEq/L ) Electrolyte Balance 11.0 LAB BUN(LOINC) 7-18 mg/dL Low BUN 6 LAB CRE(LOINC) 0.70-1.30 mg/dL Creatinine Lvl (s) 0.87 LAB BC(LOINC) 7-27 ratio BUN/Creatinine 7 Ratio LAB CA(LOINC) 8.4-10.2 mg/dL Calcium Lvl 8.8 Performed By: #### CBC, ADIFF, ANEU #### [address] [address] #### BMP, GFR #### [address] [address] .GFR Collected: 01/21/2018 Status: F Source: [facility] 12:29 PM [facility] REPOSITORY TYPE CODE TESTS RESULT OUT OF REFERENCE UNITS RANGE LAB GFRAA(LOINC ml/min/1.73 ) sqm GFR 110 Greenlandic Result Comment: GFR Population mean for , Non- Americans Ages 20-29 = 116 mL/min/1.73 sq.m. Ages 30-39 = 107 mL/min/1.73 sq.m. Ages 40-49 = 99 mL/min/1.73 sq.m. Ages 50-59 = 93 mL/min/1.73 sq.m. Ages 60-69 = 85 mL/min/1.73 sq.m. Ages 70+ = 75 mL/min/1.73 sq.m. Chronic Kidney Disease: Less than 60 mL/min/1.73 square meters End Stage Renal Disease: Less than 15 mL/min/1.73 square meters LAB GFRNO(LOINC) ml/min/1.73sqm GFR Non- 91 Result Comment: GFR Population mean for , Non- Americans Ages 20-29 = 116 mL/min/1.73 sq.m. Ages 30-39 = 107 mL/min/1.73 sq.m. Ages 40-49 = 99 mL/min/1.73 sq.m. Ages 50-59 = 93 mL/min/1.73 sq.m. Ages 60-69 = 85 mL/min/1.73 sq.m. Ages 70+ = 75 mL/min/1.73 sq.m. Chronic Kidney Disease: Less than 60 mL/min/1.73 square meters End Stage Renal Disease: Less than 15 mL/min/1.73 square meters Performed By: #### CBC, ADIFF, ANEU #### [address] [address] #### BMP, GFR #### [address] [address] UA Collected: 01/21/2018 Status: F Source: [facility] 12:29 PM [facility] REPOSITORY TYPE CODE TESTS RESULT OUT OF RANGE REFERENCE UNITS LAB SPCUA(KENDRICK NC) UA Specimen Type Clean Catch LAB CLRUA(KENDRICK NC) UA Color Yellow LAB APPUA(KENDRICK Clear NC) UA Appear Clear LAB SGUA(LOIN C) UA Spec Unknown Grav 1.010 LAB GLUA(LOIN Negative mg/dL C) UA Glucose Negative LAB BILUA(KENDRICK Negative NC) UA Bili Negative LAB KETUA(KENDRICK Negative mg/dL NC) UA Ketones Negative LAB BLDUA(KENDRICK Negative NC) UA Blood Negative LAB PHUA(LOIN C) UA pH 6.0 LAB PROUA(KENDRICK Negative mg/dL NC) UA Protein Negative LAB UROUA(KENDRICK E.U./dL NC) UA Urobilinogen 0.2 LAB NITUA(KENDRICK Negative NC) UA Nitrite Negative LAB LEUUA(KENDRICK Negative NC) UA Leuk Est Negative Performed By: #### UA, UAMICAO #### Karmen [address], [place] [address] .URINALYSIS MICROSCOPIC Collected: 01/21/2018 Status: F Source: [facility] 12:29 PM [facility] REPOSITORY TYPE CODE TESTS RESULT OUT OF REFERENCE UNITS RANGE LAB WBCUA(LOIN None Seen /hpf C) UA WBC None Seen LAB RBCUA(LOIN None Seen /hpf C) UA RBC None Seen LAB EPIUA(LOIN None Seen /hpf C) UA Squam Epithelial None Seen Performed By: #### UA, UAMICAO #### Karmen Pony [address], [place] [address] CT ABDOMEN PELVIS Observed: 01/16/2018 Status: F Source: [facility] WITH IV CONTRAST ONLY 2:25 PM ONE REPOSITORY Order Comment: Reason for exam?:low abd pain Injury/Trauma or Illness?:Illness/Other How long have you had these symptoms (acute/chronic)?:Acute Type of Exam?:Initial Additional signs and symptoms?:goes into back EXAMINATION: CT ABDOMEN PELVIS WITH IV CONTRAST ONLY HISTORY: abd pain. ORDERING SYSTEM PROVIDED HISTORY: abd pain, TECHNOLOGIST PROVIDED HISTORY: Reason for exam: low abd pain Illness/Other Encounter Type: Initial Additional signs and symptoms: goes into back ORDERING SYSTEM PROVIDED DIAGNOSIS CODES: COMPARISON: CT 06/05/2017, [facility]. TECHNIQUE: Multiple axial CT images of the abdomen and pelvis were obtained following IV administration of 75 mL of Isovue-370. 2D coronal and sagittal reformations were submitted for review. Dose reduction techniques were achieved by using automated exposure control and/or adjustment of mA and/or kV according to patient size and/or use of iterative reconstruction technique. FINDINGS: Minor lingular atelectasis is seen. No pleural effusion is identified. Minimal abdominal aortic ectasia measures 1.9 cm with moderate calcific plaque. Liver contour appears smooth. No focal liver parenchymal mass identified. Gallbladder is surgically absent. The spleen, pancreas, and adrenal glands appear unremarkable. Kidneys enhance in a symmetric fashion. Low-density cyst at the inferior pole the left kidney measures 2.1 cm. No KUB stones or hydronephrosis identified. No bowel obstruction is seen. Appendix appears normal. The stomach and duodenum appear unremarkable. No intraperitoneal free air or free fluid is identified. Bilateral inguinal herniorrhaphys are seen. No recurrent hernia identified. Urinary bladder appears unremarkable. Prostate gland measures 5 cm in transverse dimension. Ikunlxgd-vl-czkeki disc space narrowing and endplate spur at L5-S1, unchanged. No compression fracture is seen. IMPRESSION: 1. No acute findings to explain the patient's abdominal symptoms. No bowel obstruction. 2. Normal CT appearance of the appendix. 3. Left renal cyst. 4. Prior cholecystectomy with bilateral inguinal herniorrhaphies. 5. Prostatomegaly. Recommend correlation with PSA. MPH/sjk Workstation ID: [id number] Dictated by: GLORIA LARA on SatJan 16, 2018 4:40:00 PM EDT Transcribed by: HUGH ESCOBEDO on Farrah Jan 16, 2018 5:09:40 PM EDT Finalized by: GLORIA LARA on SatJan 16, 2018 9:14:41 PM EDT ED DOC Observed: 01/06/2018 Status: UNK Source: [facility] 5:34 PM [facility] REPOSITORY This is a preliminary report only, as the practitioner review and authentication has not occurred. ED DOC Observed: 01/06/2018 Status: UNK Source: [facility] 5:34 PM [facility] REPOSITORY PHYSICIAN ASSESSMENT RECORDS : FlexChartData Event Time: 01/06/2018 17:00 Status: Signed [facility] Oliver Cunningham [[id number]] Mid-Level Chart (V2b) 57 / M / 1960 Chart created at 01/06/2018 16:48 by Conner Jordan Chart closed at 01/06/2018 16:57 Entry in Emergency Department at 01/06/2018 13:58, departure at 01/06/2018 17:34 Patient Name: Oliver Cunningham Record Number: [id number] Date: 01/06/2018 16:48 Entered Department at: 01/06/2018 13:58 Patient Seen at: 01/06/2018 15:09 Historian: Patient PCP: *None,. Chief Complaint:Urinary retention Temperature: 97.9 F (36.6 C). Pulse: 130. Respiratory Rate: 16. Blood-pressure: 169/87. Oxygen Saturation: 97%. History of Present Illness: This is a 57-year-old male who complains of difficulty urinating for the past day. He states since he has had bilateral hernia repairs 1-/2 2 years ago he has had difficulty emptying his bladder. He states he was released from his surgeons practice. That was in [place] and now he lives in this area. He states he is decreased his amount of drinking of fluids because he is having trouble emptying his bladder. Is causing lower abdominal discomfort. He feels like it is most on the right side that he is filling up. [facility] PATIENT NAME: OLIVER CUNNINGHAM [address] MEDICAL REC #: [id number] [place] [address] EMERGENCY DEPARTMENT CHART EMERGENCY DEPARTMENT PHYSICIAN Review of Systems. Constitutional: negative for Fever GI: positive for Abd. Pain Musculo-Skeletal: positive for Back Pain Past History, Medications, Allergies, Social History and Family History reviewed in nurses note. Medications: Reviewed RN Note. Allergies: Reviewed RN Note PCN(Rash), mobic(Rash), lyrica(agitation of nerves), cymbalta(palpitations), abaugio(plugs arteries), copaxone(Rash), hydrochlorothiazide(syncope), Reglan(chest pain), trulance(Unknown) Social History: Reviewed RN Note. Tobacco: Smoking. Family History: Reviewed RN Note Physical Examination: General: Alert and Well Developed; This is a well-appearing 57-year-old white male in no acute distress HEENT: Head: Atraumatic. Eyes: negative for Icteric Sclera; PERRL; EOMI. Neck: Supple; moves head and neck freely Neurological: Alert, Oriented X3 Psychological: Mood/Affect Normal and Normal Memory/Judgment UA COMPLETE, information as of 01/06/2018, 3:29 pm + +---------+---------+---------+---------+-------- + + +---------+---------+---------+---------+-------- + + +---------+---------+---------+---------+-------- + [facility] PATIENT NAME: OLIVER CUNNINGHAM [address] MEDICAL REC #: [id number] [place] [address] EMERGENCY DEPARTMENT CHART EMERGENCY DEPARTMENT PHYSICIAN + +---------+---------+---------+---------+-------- + + +---------+---------+---------+---------+-------- + Medical Decision Making Patient has a large prostate on exam. He describes some intermittent urinary retention that is been somewhat chronic which could be explained by BPH. We placed a Hoffman catheter and he put out 150 cc of clear yellow urine. This gave him no symptomatic improvement. His abdomen is benign. He stable for discharge home. We will leave the Hoffman catheter into a leg bag with his symptoms of urinary retention follow-up with urology. No evidence of UTI. I encouraged lots of fluid intake we will give him p.o. fluids here. He had multiple visits here and even recently is continued to have normal renal function. We do not see indication for repeat labs today. Discussed case with Dr. Johnson who directed work up and disposition. Re-Evaluation: 16:55: Vital Signs: Heart Rate: 107. Pain Re-exam Abdominal: Non-Tender and Soft Additional Information: Discussed Results, Diagnosis and Follow-Up with Patient. Clinical Impression: 1. Urinary retention, probable Direct patient care supervision and electronic [facility] PATIENT NAME: OLIVER CUNNINGHAM [address] MEDICAL REC #: [id number] [place] [address] EMERGENCY DEPARTMENT CHART EMERGENCY DEPARTMENT PHYSICIAN documentation review by Amada Johnson on 01/06/2018 21:22. : FlexChartData Event Time: 01/06/2018 17:50 Status: Signed [facility] Oliver Hendersoncam [[id number]] Attending Physician 57 / M / 1960 Addendum (V2b) Chart created at 01/06/2018 17:13 by Amada Johnson Chart closed at 01/06/2018 17:15 Entry in Emergency Department at 01/06/2018 13:58, departure at 01/06/2018 17:34 Patient Name: Oliver Cunningham Record Number: [id number] Date: 01/06/2018 17:13 Entered Department at: 01/06/2018 13:58 Patient Seen at: 01/06/2018 15:09 Historian: Patient PCP: *None,. Chief Complaint:PT REPORTS URINARY RETENTION THAT STARTED LAST NIGHT. Nursing triage/initial assessment reviewed and confirmed and Initial Vital Signs reviewed. Note: Patient has urinary retention by his history. Exam: Vital signs initially show tachycardia however upon reassessment this is down markedly without treatment. His abdomen is soft UA COMPLETE, information as of 01/06/2018, 3:29 pm + +---------+---------+---------+---------+-------- + + +---------+---------+---------+---------+-------- + [facility] PATIENT NAME: OLIVER CUNNINGHAM [address] MEDICAL REC #: [id number] [place] [address] EMERGENCY DEPARTMENT CHART EMERGENCY DEPARTMENT PHYSICIAN + +---------+---------+---------+---------+-------- + + +---------+---------+---------+---------+-------- + + +---------+---------+---------+---------+-------- + Medical Decision Making Patient was not in significant urinary retention however he had 200 cc in his bladder upon catheterization and this was post void. He has been having urinary hesitancy therefore I do think he does have some prostate issues, we will leave the Hoffman in place and he will follow-up with urology. He recently had hospitalization, he had several ER visits this year with normal renal function normal CBC each time I do not see need to repeat these tests at this present visit Disposition: Discharged *Home at 06 Jan 2018, 17:15. Condition: Good Agree with history/exam documented on primary chart and Patient Interviewed by me. MSE completed. I was the primary ED attending.. Medicare shared visit: I have personally evaluated this patient. I have supervised the MLP, reviewed their documentation, and agree with their findings, assessment and plan. See [facility] for my summary of donovan elements of this patient visit.. : Discharge Report [facility] PATIENT NAME: OLIVER CUNNINGHAM [address] MEDICAL REC #: [id number] [place] [address] EMERGENCY DEPARTMENT CHART EMERGENCY DEPARTMENT PHYSICIAN Event Time: 01/06/2018 16:58 ===DISCHARGE REPORT=== : FlexChartData Event Time: 01/06/2018 17:00 : FlexChartData Event Time: 01/06/2018 17:50 : Discharge Report Event Time: 01/06/2018 16:58 Status: Draft Reasons to Return to the ER: You must return to the ER for any new, worsening or changing symptoms, or if you feel more ill or sick in any way. This is the most important thing to remember. Follow-up: The care you received in the ER was given on an emergency basis only, and it is often not possible to completely treat or diagnose a problem in a single ER visit. You must see your follow-up doctor for a recheck within a week unless you receive instructions with a different timeframe for follow-up. Please follow all your discharge instructions. Medications: Unless the ER doctor tells you differently, you should take all your regular medications and any new medications prescribed today. Because it is not possible for the ER doctor to review all of your medication side effects or interactions, you must review possible side effects and interactions with your pharmacist when you get your prescriptions filled. EKG and Radiology Results: A traveling clerk or radiologist will review any EKG or radiology results provided by the ER doctor. We will contact you if the results in the final EKG or radiology reports require a change in treatment. Culture Results: [facility] PATIENT NAME: OLIVER CUNNINGHAM [address] MEDICAL REC #: [id number] [place] [address] EMERGENCY DEPARTMENT CHART EMERGENCY DEPARTMENT PHYSICIAN Cultures may have been ordered during your ER visit. We will contact you if the culture results require a change in treatment. Referrals: Most referrals to specialists come from the on-call list You should make your regular doctor aware of any referrals before you schedule the appointment so that they are aware and can make suggestions DIAGNOSIS: Urinary retention, probable UNLESS THE ER DOCTOR GIVES YOU OTHER INSTRUCTIONS, YOU MUST SEE YOUR FOLLOW-UP DOCTOR WITHIN 1 TO 2 DAYS FOR RECHECK. YOU MUST RETURN TO THE ER RIGHT AWAY FOR ANY OF THE FOLLOWING:Increasing painChange in the location of the painNew or increasing fever or chillsNew or increasing constipation or difficulty urinatingNew or increasing abdominal swelling or bloatingBlood appears in the stool, vomit or urineNew or increasing vomiting or diarrhea.New or increasing weakness or dizzinessEarly appendix infection is always a possibility and you must return if the pain moves to the lower right side of your abdomen REFERRAL Rik Plascencia MD (Urology), , fax: Please call the above number to schedule a follow-up appointment. Aide ([facility]), Please call the above number to schedule a follow-up appointment. MEDICATIONS At this time we have no recommendations that you stop [facility] PATIENT NAME: OLIVER CUNNINGHAM [address] MEDICAL REC #: [id number] [place] [address] EMERGENCY DEPARTMENT CHART EMERGENCY DEPARTMENT PHYSICIAN taking any medications, or start taking any new ones. COMMENTS: Patient Satisfaction: Within the first few days after your visit, you will receive an email and/or phone call regarding your visit. We value your feedback, and would appreciate it if you would take the time to complete this short survey. If you receive a call, it will be between 6p and 8p. My signature below indicates that I have received and understand the oral instructions regarding my medical problem. I also acknowledge receipt of this written instruction sheet including a list of major tests and procedures ordered during my visit. I will arrange for follow-up care as indicated by these instructions and referrals. This signed original will be kept in my medical record. Your signature below indicates consent for Case Management to contact [facility] providers in an effort to meet your ongoing healthcare needs. This will allow forcontinuity of care once you leave the Emergency Department. This exchange of informationwill include, but not be limited to, disclosure of your patient information and possible release of records. 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 MEDICAL REC #: [id number] [place] [address] EMERGENCY DEPARTMENT CHART EMERGENCY DEPARTMENT PHYSICIAN ED Number: [id number] Marital Status: D Financial Class: MPPS TRIAGE Priority: 3 - Urgent Complaint: Urinary Retention Stated Complaint: PT REPORTS URINARY RETENTION THAT STARTED LAST NIGHT. Arrival Date: 01/06/2018 13:58 Triage Date: 01/06/2018 14:01 Mode of Arrival: Ambulatory/Walk-In WC: N Language: Cypriot Transport: Walk-In BED A02 In: 01/06/2018 14:39:08 01/06/2018 14:39:08 SLHB A02 (Removed From) Out: 01/06/2018 17:34:21 01/06/2018 17:34:21 CWG PROVIDERS PACharli Jordan Provider Contact: 01/06/2018 14:43:03 RWK End: MD Amada Johnson Provider Contact: 01/06/2018 15:09:21 [facility] End: MARTINE FERRARA Provider Contact: 01/06/2018 15:35:46 CWG End: [facility] PATIENT NAME: OLIVER CUNNINGHAM [address] MEDICAL REC #: [id number] [place] [address] EMERGENCY DEPARTMENT CHART EMERGENCY DEPARTMENT PHYSICIAN TRIAGE HISTORY ALLERGIES Allergic To: PCN - Rash 01/06/2018 14:08 SXM Allergic To: mobic - Rash 01/06/2018 14:08 SXM Allergic To: lyrica - agitation of nerves 01/06/2018 14:08 SXM Allergic To: cymbalta - palpitations 01/06/2018 14:08 SXM Allergic To: abaugio - plugs arteries 01/06/2018 14:08 SXM Allergic To: copaxone - Rash 01/06/2018 14:08 SXM Allergic To: hydrochlorothiazide - syncope 01/06/2018 14:08 SXM Allergic To: Reglan - chest pain 01/06/2018 14:08 SXM Allergic To: trulance - Unknown 01/06/2018 14:08 SXM ILLNESS Illness: multiple sclerosis 01/06/2018 14:08 SXM Illness: scleraderma 01/06/2018 14:08 SXM Illness: Emphysema 01/06/2018 14:08 SXM PAST SURGERY HIST Surgery: Hernia Repair 01/06/2018 14:08 SXM Surgery: Cholecystectomy 01/06/2018 14:08 SXM Surgery: lower back 01/06/2018 14:08 SXM Surgery: bilateral shoulder 01/06/2018 14:08 SXM Surgery: Tonsillectomy 01/06/2018 14:08 SXM PAST SOCIAL HIST Social History: Communicates without difficulty 01/06/2018 14:08 SXM [facility] PATIENT NAME: OLIVER CUNNINGHAM [address] MEDICAL REC #: [id number] [place] [address] EMERGENCY DEPARTMENT CHART EMERGENCY DEPARTMENT PHYSICIAN Social History: Lives with family or significant other 01/06/2018 14:08 SXM Social History: Alcohol - None 01/06/2018 14:08 SXM Social History: Recreational Drugs - None 01/06/2018 14:08 SXM Social History: Smoker-1/2 PPD 01/06/2018 14:08 SXM Social History: Denies Domestic Violence 01/06/2018 14:08 SXM Social History: Denies thoughts of self harm. 01/06/2018 14:08 SXM Social History: Have you traveled in the past month? Where NO 01/06/2018 14:08 SXM IMMUNIZATIONS Immunization: Flu Vaccine-no 01/06/2018 14:08 SXM NURSING ASSESSMENT ASSESSMENT NOTES 01/06/2018 15:21 Pt arrives to room 2 in ED with c/o right kidney and right side pain x 1 day. Pt states pain has been on and off since hernia pain in 2016. Pt was able to provide urine sample at this time. Pt denies any other complaints at this time. Pt AOP x 3, RR e/u, skin p/w/d. Pt NAD. 01/06/2018 15:24 CWG 01/06/2018 15:43 Patient now in the room to be seen 01/06/2018 15:43 RWK 01/06/2018 16:42 Hoffman catheter placed. 100 mL urine out at this time. ERP notified. 01/06/2018 16:43 CWG 01/06/2018 17:32 Hoffman bag changed to leg bag. Instructed pt on usage. Pt denies any questions at this [facility] PATIENT NAME: OLIVER CUNNINGHAM [address] MEDICAL REC #: [id number] [place] [address] EMERGENCY DEPARTMENT CHART EMERGENCY DEPARTMENT PHYSICIAN time. 01/06/2018 17:32 CWG TREATMENT 01/06/2018 15:24 Primary DOC Guide - A. 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 Fall Risk Assessment (Age andlt;65) 01/06/2018 15:26 CWG History of Falling in last 3 months? No (0) Confusion or Disorientation? No (0) Intoxicated or Sedated? No (0) Impaired Gait? No (0) Mobility Assist Device Used? No (0) Altered Elimination? No (0) Fall Risk Score 1-2 Points = Low Risk. 3-4 Points = Moderate Risk. 5 or more points = High Risk. 0 Fall Score Greater andgt;= 3? No 01/06/2018 15:26 Primary DOC Guide - D. Psychosocial Assessment 01/06/2018 15:26 CWG Over the Last 2 weeks, how often have you had little interest or pleasure in doing things (0) Not at All Is Psychosocial Assessment Score 3 or more? If score is 3 or more please consult ED Navigator! No Total Psychosocial Assessment Score 0 Over the last 2 weeks, how often have you been feeling down, depressed or hopeless (0) Not at All 01/06/2018 15:26 Primary DOC Guide - E. Family Violence Assessment 01/06/2018 15:26 CWG Within the past year, has anyone ever pushed, shoved, slapped, choked, hit, punched or kicked you: No Within the past year, has anyone ever pressured or [facility] PATIENT NAME: OLIVER CUNNINGHAM [address] MEDICAL REC #: [id number] [place] [address] EMERGENCY DEPARTMENT CHART EMERGENCY DEPARTMENT PHYSICIAN forced you to have sexual activities when you did not want to: No Do you feel safe and well cared for: Yes Is there a partner from a previous or current relationship that is making you feel unsafe now: No 01/06/2018 17:34 Admit/Discharge - Discharge 01/06/2018 17:34 CWG MEDICATIONS IV I AND O VITALS VS-ROUTINE Time: 01/06/2018 14:01 B/P: 169/87 - Left Upper Arm - Sitting - Machine Pulse: 130 - Monitor Resp: 16 Sa02: 97 Room Air Temp: 97.90 F - Oral 01/06/2018 14:08 SXM VS-Pain Time: 01/06/2018 14:01 Pain Level: 9 01/06/2018 14:08 SXM VS-GCS Time: 01/06/2018 14:01 Visual: 4 Verbal: 5 Motor: 6 GCS Total: 15 01/06/2018 14:08 SXM VS-HT/WT Time: 01/06/2018 14:01 Ht: 180.3 cm Stated Weight: 83.5 kg Actual 01/06/2018 14:08 SXM VS-Visual Time: 01/06/2018 14:01 01/06/2018 14:08 SXM VS-FHT Time: 01/06/2018 14:01 01/06/2018 14:08 SXM VS-Notes Time: 01/06/2018 14:01 MAP 92 01/06/2018 14:08 SXM VS-ROUTINE Time: 01/06/2018 17:33 B/P: 159/69 - *Left Forearm - Sitting - Machine Pulse: 88 - Monitor Resp: 18 Sa02: 98 Room Air 01/06/2018 17:34 CWG VS-Pain Time: 01/06/2018 17:33 01/06/2018 17:34 CWG VS-GCS Time: 01/06/2018 17:33 Visual: 4 Verbal: 5 Motor: [facility] PATIENT NAME: OLIVER CUNNINGHAM [address] [place] MEDICAL REC #: [id number] ANA Ahuja [address] EMERGENCY DEPARTMENT CHART EMERGENCY DEPARTMENT PHYSICIAN 6 GCS Total: 15 01/06/2018 17:34 CWG VS-HT/WT Time: 01/06/2018 17:33 01/06/2018 17:34 CWG VS-Visual Time: 01/06/2018 17:33 01/06/2018 17:34 CWG VS-FHT Time: 01/06/2018 17:33 01/06/2018 17:34 CWG VS-Notes Time: 01/06/2018 17:33 01/06/2018 17:34 CWG ORDERS Discharge patient 01/06/2018 17:15 N/A Ordered: 01/06/2018 16:57 By . Other Reviewed: 01/06/2018 17:15 By . Other PO fluids 01/06/2018 17:09 N/A Ordered: 01/06/2018 16:55 By Conner Jordan Completed Time: 01/06/2018 17:09 By Conner Jordan Noted Time: 01/06/2018 17:09 CWG UA cath 01/06/2018 15:48 N/A Ordered: 01/06/2018 15:10 By Amada Johnson Completed Time: 01/06/2018 15:48 By Amada Johnson Question: Lab Urine Specimen Type Answer: Catheterized Question: Also Culture, if indicated by UA results (Y or N) Answer: NO Results Time: 01/06/2018 15:48 Hoffman catheter insertion 01/06/2018 16:50 N/A Ordered: 01/06/2018 15:09 By Amada Johnson Completed Time: 01/06/2018 16:50 By Amada Johnson Noted Time: 01/06/2018 16:16 CWG Hoffman leg bag 01/06/2018 16:50 N/A Ordered: 01/06/2018 15:09 By Amada Johnson Completed Time: 01/06/2018 16:50 By Amada Johnson Noted Time: 01/06/2018 16:16 CWG DISCHARGE [facility] PATIENT NAME: OLIVER CUNNINGHAM [address] [facility] [address] [facility] [address] [place] MEDICAL REC #: [id number] [place] [address] EMERGENCY DEPARTMENT CHART EMERGENCY DEPARTMENT PHYSICIAN Diagnosis: Urinary retention, probable 01/06/2018 16:58 Disposition: Time: 01/06/2018 16:57 Discharge Time: 01/06/2018 17:34 Type: Discharge Condition: Stable for admission/discharge/transfer after emergency evaluation/treatment Category: *NOT APPLICABLE Referral: 01/06/2018 16:58 Admit Physician: . Other PRESCRIPTIONS CHARGES SIGNATURE Conner Kang RN SXM Amada Johnson MD [facility] QUENTIN ODONNELL HB MARTINE FERRARA [facility] [place] [facility] PATIENT NAME: OLIVER CUNNINGHAM [address] [place] [address] Dr. Vale MEDICAL REC #: [id number] [place] [address] EMERGENCY DEPARTMENT CHART EMERGENCY DEPARTMENT PHYSICIAN UA COMPLETE Collected: 01/06/2018 Status: F Source: [facility] 3:29 PM [facility] REPOSITORY Order Comment: [place]: TYPE CODE TESTS RESULT OUT OF REFERENCE UNITS RANGE LAB L600.37903 UA COLOR Normal Yellow LAB L600.22700 CLEAR UA Normal APPEARANCE Clear LAB L600.50411 1.005-1.030 UA SPEC Normal GRAV 1.012 LAB L600.10909 UA PH Normal 6.0 LAB L600.66745 UA GLUCOSE Normal NEG LAB L600.26894 UA KETONE Normal 5 LAB L600.41847 UA Normal BILIRUBIN NEGATIVE LAB L600.77581 UA Normal UROBILINOGEN NEG LAB L600.48438 NEGATIVE UA PROTEIN Normal NEGATIVE LAB L600.74936 NEGATIVE UA BLOOD Normal NEGATIVE LAB L600.27158 NEGATIVE UA NITRITE Normal NEGATIVE LAB L600.86938 NEGATIVE UA LK Normal ESTERASE NEG Performed By: #### L600.77499 #### [facility] LABORATORY [facility] [place] [address] LOWER EXT ARTERIAL Observed: 01/01/2018 Status: F Source: [place] STUDY 8:37 AM [facility] REPOSITORY [facility] Cardiovascular Services [address] [place] [address] 01/01/18 0836 MR#: [id number] Acct: [id number] Name: OLIVER CUNNINGHAM Rep #: [id number] : 1960 57 From: Elizabeth Ovalle MD Attending Dr: Elizabeth Ovalle MD Status: REG CLI Ordering Dr: Date: 01/01/18 Location: [facility] Sex: M C Admitted: Arterial Study - Arterial Study Arterial Study: Date of scan 12/27/[address] Ovalle Interpretation: Right lower extremity with normal triphasic flow noted at the ankle both vessels with an 8 x 1.11 at the PT 1.06 of the DP. Left lower extremity with normal triphasic flow noted at the ankle with an JASON 1.18 at the DPT and 1.09 at the DP. Impression: 1. Bilateral lower extremities with normal triphasic flow no evidence of significant arterial occlusive disease at rest with an JASON 1.11 on the right and 1.18 on the left 01/01/18 0837 <Electronically signed by Elizabeth Ovalle MD> Date Elizabeth Ovalle MD CC: No Primary Care Physician; Elizabeth Ovalle MD Date Dictated: 01/01/18835 Date Transcribed: 01/01/18835 Nutrition Services Worker: LUIS CARLOS Castellanos XR ACUTE ABD SERIES Observed: 12/30/2017 Status: F Source: [place] 2V ABD+CXR 3:20 PM CLINIC OTHER CAMPUS REPOSITORY * * *Final Report* * * DATE OF EXAM: Dec 30 2017 3:20PM MDX 5359 - XR ACUTE ABD SERIES 2V ABD+CXR / PROCEDURE REASON: Abd pain, unspecified * * * * Physician Interpretation * * * * XR ABDOMINAL SERIES HISTORY: Abd pain, unspecified TECHNIQUE: Supine and upright view(s) of the abdomen; 2 view(s); AP chest COMPARISON: Abdominal series 01/10/2017; chest radiograph 10/22/2017 RESULT: Abdomen: No dilated loops of bowel. No free intraperitoneal air. Right upper quadrant surgical clips. AP chest: Lungs are clear of consolidation. No pleural effusion or pneumothorax. Normal size and contour of the cardiomediastinal silhouette. IMPRESSION: No free air or obstruction. No acute cardiopulmonary findings. Nutrition Services Worker: TORRIE Transcribe Date/Time: Dec 30 2017 3:32P Dictated by : KONRAD MARIE MD This examination was interpreted and the report reviewed and electronically signed by: KONRAD MARIE MD on Dec 30 2017 3:34PM EST [id number] URINALYSIS Collected: 12/30/2017 Status: F Source: [place] 2:26 PM CLINIC OTHER CAMPUS REPOSITORY TYPE CODE TESTS RESULT OUT OF REFERENCE UNITS RANGE LAB UCOL Yellow Color Yellow LAB [facility] Clear Clarity Clear LAB UGLUC Negative mg/dL Glucose, Urine Negative LAB UBIL Negative Bilirubin, Urine Negative LAB UKET Negative Ketones, Urine Negative LAB USPG 1.001-1.029 Specific [place], Ur 1.010 LAB UHGB Negative Hemoglobin/Blood, Negative Ur LAB UPH 5.0-8.0 pH 6.0 LAB UPROT Negative mg/dL Protein, Urine Negative LAB UUROB 0.2-1.0 Urobilinogen 0.2 LAB UNITR Negative Nitrites Negative LAB ULKEST Negative Leukest Negative Performed By: #### UA #### [facility] [address] [place] [address] CK, TOTAL AND CKMB Collected: 12/30/2017 Status: F Source: [place] 2:22 PM [facility] OTHER CAMPUS REPOSITORY TYPE CODE TESTS RESULT OUT OF REFERENCE UNITS RANGE LAB CK 51-298 U/L CK 107 LAB MB <7.7 ng/mL MB 2.5 LAB CKMBRI 0.0-4.0 % CK MB % 2.3 Performed By: #### CKCKMB #### [facility] [address] [place] [address] CBC AND DIFFERENTIAL Collected: 12/30/2017 Status: F Source: [place] 2:21 PM [facility] OTHER [facility] REPOSITORY TYPE CODE TESTS RESULT OUT OF REFERENCE UNITS RANGE LAB WBC 3.70-11.00 k/uL WBC 7.56 LAB RBC 4.20-6.00 m/uL RBC 5.16 LAB HGB 13.0-17.0 g/dL Hemoglobin 16.7 LAB HCT 39.0-51.0 % Hematocrit 47.1 LAB MCV 80.0-100.0 fL MCV 91.3 LAB MCH 26.0-34.0 pG MCH 32.4 LAB MCHC 30.5-36.0 g/dL MCHC 35.5 LAB RDWCV 11.5-15.0 % RDW-CV 12.7 LAB PLTCT 150-400 k/uL Platelet Count 235 LAB MPV 9.0-12.7 fL MPV 9.1 LAB ANEUT % Neut% 71.7 LAB AANEUT 1.45-7.50 k/uL Abs Neut 5.43 LAB ALYMP % Lymph% 18.7 LAB AALYMP 1.00-4.00 k/uL Abs Lymph 1.41 LAB AMONO % Mellette% 8.9 LAB AAMONO <0.87 k/uL Abs Mellette 0.67 LAB AEOS % Eosin% 0.3 LAB AAEOS <0.46 k/uL Abs Eosin <0.03 LAB ABASO % Baso% 0.4 LAB AABASO <0.11 k/uL Abs Baso 0.03 Performed By: #### CBCDIF, CMP, LIPA #### [facility] [address] [facility] [phone] COMP METABOLIC PANEL Collected: 12/30/2017 Status: F Source: [place] 2:21 PM CLINIC OTHER CAMPUS REPOSITORY TYPE CODE TESTS RESULT OUT OF REFERENCE UNITS RANGE LAB TP 6.3-8.0 g/dL Protein, Total 7.5 LAB ALB 3.9-4.9 g/dL Albumin 4.5 LAB CA 8.5-10.2 mg/dL Calcium, Total 9.3 LAB TBIL 0.2-1.3 mg/dL Bilirubin, Total 0.3 LAB ALKP 36-108 U/L Alkaline Phosphatase 66 LAB AST 14-40 U/L AST 15 Result Comment: Results may be falsely increased due to interference by hemolysis. Suggest reorder as clinically indicated. LAB GLU 74-99 mg/dL High Glucose 137 Result Comment: The [place] Diabetes Association (ADA) provides guidance for cutoff values for fasting glucose and random glucose. The ADA defines fasting as no caloric intake for at least 8 hours. Fas ting plasma glucose results between 100 to 125 mg/dL indicate increased risk for diabetes (prediabetes). Fasting plasma glucose results greater than or equal to 126 mg/dL meet the criteria for diagnosis of diabetes. In the absence of unequivocal hyperglycemia, results should be confirmed by repeat testing. In a patient with classic symptoms of hyperglycemia or hyperglycemic crisis, random plasma glucose results greater than or equal to 200 mg/dL meet the criteria for diagnosis of diabetes. Reference: Standards of Medical Care in Diabetes 2016, [place] [employer] Association. Diabetes Care. 2016.39(Suppl 1). LAB BUN 9-24 mg/dL BUN Low 7 LAB CRET 0.73-1.22 mg/dL Creatinine Low 0.65 LAB NA 136-144 mmol/L Sodium 138 LAB K 3.7-5.1 mmol/L Potassium 3.8 LAB CL 97-105 mmol/L Chloride 99 LAB CO2 22-30 mmol/L CO2 24 LAB AGAP 9-18 mmol/L Anion Gap 15 LAB ALT 10-54 U/L ALT 11 LAB GFRAA eGFR- Amer. >60 LAB GFRNAA . eGFR-All Other Races >60 Result Comment: eGFR (Estimated GFR) Units of measure: mL/min/1.73 meters squared eGFR is derived from the reexpressed MDRD Study equation using the following parameters: serum creatinine, age, gender and race. The creatinine assay has been calibrated to be traceable to IDMS. An eGFR <60 mL/min/1.73m2 for >3 months is consistent with chronic kidney disease. Refer to KDOQI guidelines for clinical interpretation. In patients with unstable renal function, e.g. those with acute kidney injury, the eGFR may not accurately reflect actual GFR. Performed By: #### CBCDIF, CMP, LIPA #### [facility] [address] LIPASE Collected: 12/30/2017 Status: F Source: [place] 2:21 PM [facility] REPOSITORY TYPE CODE TESTS RESULT OUT OF REFERENCE UNITS RANGE LAB LIPA 16-61 U/L Lipase 40 Performed By: #### CBCDIF, CMP, LIPA #### [facility] [address] [place], [place] [id number] TROPONIN T Collected: 12/30/2017 Status: F Source: [place] 2:21 [facility] REPOSITORY TYPE CODE TESTS RESULT OUT OF REFERENCE UNITS RANGE LAB TROPT 0.000-0.029 ng/mL Troponin T <0.010 Performed By: #### ILEANA #### [facility] [address] [place], [place] [id number] EKG Observed: 12/30/2017 Status: F Source: [place] 2:00 PM [facility] REPOSITORY NAME : OLIVER CUNNINGHAM PID : [id number] : 1960 Gender : Male Race : ORD : [id number] Procedure Date : Dec 30 2017 14:00:25 Edit Date : Dec 31 2017 08:17:33 Diagnosis:NORMAL SINUS RHYTHM NORMAL ECG WHEN COMPARED WITH ECG OF 06-DEC-2017 18:08, NO SIGNIFICANT CHANGE WAS FOUND agree Confirmed by ADAM MCINTOSH MD ([id number]), medical editor LENNIE PEÑA ([id number]) on 12/31/2017 8:17:28 AM Ventricular Rate : 98 BPM Atrial Rate : 98 BPM P-R Interval : 130 ms QRS Duration : 96 ms Q-T Interval : 356 ms QTC Calculation(Bezet) : 454 ms P Derby Line : 73 degrees R Derby Line : 88 degrees T Derby Line : 67 degrees Test Reason : Chest Pain Location : 1 : ER ED Overread By : ADAM MCINTOSH MD Edited By : LENNIE PEÑA Referred By : KAMRAN, Acquired by : YOLI BENITEZ PROV NOTE Observed: 12/30/2017 Status: COMPLETED Source: [place] 1:54 PM CLINIC OTHER CAMPUS REPOSITORY O ID: [id number] Author: Adam Mcintosh MD Service: (none) Author Type: Physician Type: ED Provider Notes Filed: 12/30/2017 3:55 PM Note Text: ED Provider Note Patient Name: Oliver Cunningham SERVICE DATE: 12/30/17 History Patient presents with: Pain Patient is a 57 she'll male coming in with pain. He describes in his groin going up to his left shoulder. Chin has a history of MS and states about a year ago he had a partial treatment that now he feels is going to his arteries. The patient's symptoms he states started yesterday and are worse today. Patient states that he hasn't had a treatment for over a year but he states he didn't flush them out correctly. Patient does complain of some mild chest pain and shortness of breath but when he points point to his left shoulder. Patient has a history of MS chronic abdominal pain, hypertension hyperlipidemia PAST MEDICAL HISTORY Diagnosis Date - Black spider bite 10/2007 - Cervical radiculopathy - CHI (closed head injury) 20 years ago. 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 PAST SURGICAL HISTORY Procedure Laterality Date - AMPUTATION FINGER/THUMB 05/29/10 Traumatic, Right middle, ring and distal - BACK SURGERY HX - CHOLECYSTECTOMY HX - COLONOSCOPY 11/20 - COLONOSCOPY 03/2016 - EGD W/O OR W/BRUSH/WASH 06/24/13 EGD - HERNIA REPAIR HX 2013 umbilical - HERNIA REPAIR HX Bilateral 05/2016 Bilateral Inguinal Hernia repair - ORTHOPEDICS SURGERY HX - PAST SURGICAL HISTORY OF 1993 lumbar diskectomy - REMOVAL GALLBLADDER 1998 laparoscopic - REMOVE TONSIL AND ADENOI UNDER AGE 13 remote - ROTATOR CUFF REPAIR 05/24/11 Right Shoulder - ROTATOR CUFF REPAIR 07/10/11 Left shoulder - TONSILLECTOMY HX FAMILY HISTORY Problem Relation Age of Onset - Emphysema Mother - Cancer Mother lung/glioblastoma(Brain) - Thyroid Mother - Heart Mother - other (charcot samir tooth) Mother - other (GBM) Mother - Coronary Artery Disease Father MA and CABG - other (MS) Daughter - Lipids Paternal Grandfather - Lipids Brother - Psychiatry Sister - Kidney Disease Daughter - Psychiatry Daughter bipolar disorder Social History Social History Main Topics - Smoking status: Current Every Day Smoker Packs/day: 0.25 Years: 45.00 Types: Cigarettes Start date: 04/08/1977 - Smokeless tobacco: Never Used - Alcohol use No Comment: none - Drug use: No - Sexual activity: Not Currently Partners: Female ALLERGIES Allergen Reactions - Hydrocodone GI Upset Feels like bleeding Inside stomach - Lyrica [Pregabalin] Intolerance - Aubagio [Teriflunom* Other: See Comments Passed out - Bentyl [Dicyclomine* Other: See Comments - Celexa [Citalopram * Other: See Comments Terrible headaches. - Copaxone [Glatirame* Rash, Itching - Cymbalta [Duloxetin* Other: See Comments chest pain, abnormal sensation/feeling in chest - Erythromycin Other: See Comments turns everything to stone inside my bowels - Fenofibrate Intolerance chest pain and numbness - Hctz [Amiloride-Hyd* Other: See Comments Tripping, falling, no sense of balance - Lipitor [Atorvastat* Other: See Comments ruq PAIN - Miralax [Polyethyle* Swelling, GI Upset Swollen abdomen - go lightly - Mobic [Meloxicam] Itching - Morphine Other: See Comments Side pain - Penicillins Rash high fevers - Pravastatin Other: See Comments Muscle soreness - Prilosec [Omeprazol* Other: See Comments increased abdominal pressure, travels up to the chest area - Reglan [Metoclopram* GI Upset Also gives chest pain - Welchol [Colesevela* Other: See Comments Abdomen and chest pain - Xifaxan [Rifaximin] Other: See Comments Insomnia Review of Systems Constitutional: Negative for fever. Gastrointestinal: Negative for diarrhea and vomiting. All other systems reviewed and are negative. Physical Exam BP 148/102 Pulse 118 Temp (Src) 98.4 (Oral) Resp 20 Wt 184 lb (83.5kg) SpO2 96% Physical Exam Constitutional: He is oriented to person, place, and time. He appears well-developed and well-nourished. No distress. HENT: Mouth/Throat: Oropharynx is clear and moist. Neck: Neck supple. Cardiovascular: Normal rate and regular rhythm. Pulmonary/Chest: Effort normal and breath sounds normal. Abdominal: Soft. He exhibits no mass. There is tenderness (mild diffuse increased in the right groin). There is no guarding. Musculoskeletal: He exhibits no edema. Neurological: He is alert and oriented to person, place, and time. Skin: Skin is warm. Psychiatric: He has a normal mood and affect. Nursing note and vitals reviewed. Diagnostic Testing ED Labs Ordered and Reviewed - No data to display Procedures ED Course / Clinical Impression Clinical Impressions as of Dec 30 1553 Generalized abdominal pain Atypical chest pain MDM / Disposition / Plan Patient's previous emergency Department visits were found with very similar complaints. His multidisciplinary chart was reviewed and recommended limited CAT scans and no narcotics for pain. We'll review the labs with acute abdominal series. EKG shows normal sinus rhythm rate in 98 normal axis nonspecific this appears very similar to previous EKGs. Patient basic labs urinalysis was normal cardiac enzymes were normal. White blood cell count is normal. Acute abdominal series shows no free air obstruction for acute cardiopulmonary findings. This appears to be his chronic pain. I did advise them to contact her primary care Dr. Box is senior interaction designer call for unassigned. He is to follow with him return with any worsening symptoms or concerns. He will be given Tylenol. The patient was DISCHARGED: Counseled patient regarding lab results AND radiology results AND need for follow-up. Discharged home with verbal and written instructions. They were instructed to return as needed for persistent or worsening symptoms or any new concerns. Condition at time of disposition: stable SIGNATURE: MD Adam Valencia MD 12/30/17 1555 ED NOTE Observed: 12/30/2017 Status: COMPLETED Source: [place] 1:37 PM CLINIC OTHER CAMPUS REPOSITORY O ID: [id number] Author: Alley (Rn) KIMBERLEE Ralph Service: Emergency Medicine Author Type: Registered Nurse Type: ED Notes Filed: 12/30/2017 1:43 PM Note Text: Pt presents with pain that feels like little hard things floating around in the body. Today all the little hard things got into my aorta and went up to my chest. It's crushing my heart, my lungs, my liver. It feels like little slivers. Then all the slivers get together and make a big thing and it expands Pain is described as burning and crushing, he feels it from his femoral artery up to his chest. Pt states last evening it felt like he had poision paxton in his chest. . Pt states he was on aubagio, a medication for his MS, and stopped taking it a year ago. Pt believes these symptoms are because this medication is still in his body or his MS is replasing. Pt states he has had these symptoms before and was worked up with stress tests 3 times. No conclusive results. ABD AORTIC/IVC DUPLEX Observed: 12/27/2017 Status: F Source: [place] SC[place] 5:43 PM [facility] REPOSITORY [facility] Cardiovascular Services [address] [place] [address] Abd Aortic/IVC Duplex scan 12/27/17 0742 MR#: [id number] Acct: [id number] Name: OLIVER CUNNINGHAM Rep #: [id number] : 1960 57 From: Elizabeth Ovalle MD Attending Dr: Elizabeth Ovalle MD Status: REG CLI Ordering Dr: Elizabeth Ovalle MD Date: 12/27/17 Location: [facility] Sex: M C Admitted: Reason For Study: ATHEROSCLEROSIS Aorta Measurements Aorta Doppler Measurements Proximal aorta measures1.5 X 1.6cm. in cross- Peak systolic flow velocities within the proximal sectional axis. aorta measure 48.3 cm/sec. Proximal aorta measures1.7cm. in longitudinal Peak systolic flow velocities within the mid axis. aorta measure 48.3 cm/sec. Mid aorta measures1.7 X 1.6cm. in cross-sectionalPeak systolic flow velocities within the distal axis. aorta measure 53.8 cm/sec. Mid aorta measures1.6cm. in longitudinal axis. Distal aorta measures1.6 X 1.6cm. in cross- sectional axis. Distal aorta measures1.7cm. in longitudinal axis. Left Iliac Artery Left iliac artery measures .8 X .8 cm. in the cross-sectional axis. Left iliac artery measures .7 cm. in the longitudinal axis. Peak systolic velocity in the left iliac artery measures 131 cm/sec. Right Iliac Artery Right iliac artery measures .8 X 1.0 cm. in the cross-sectional axis. Peak systolic velocity in the right iliac artery measures 81.2 cm/sec. Right iliac artery measures .7 cm. in the longitudinal axis. Procedure Aorta IVC Iliac vasculature or bypass grafts [id number]. Exam performed in department. Interpretation Summary 1. No aortoiliac aneurysm or stenosis. Ordering Physician: Elizabeth Ovalle Referring Physician: Elizabeth Ovalle Performed By: Liss Dejesus, ZA, RVT 12/27/171742 Date Elizabeth Ovalle MD CC: No Primary Care Physician; Elizabeth Ovalle MD Date Dictated: 12/27/17 0742 Date Transcribed: 12/27/171742 Nutrition Services Worker: Signed CAROTID DUPLEX Observed: 12/27/2017 Status: F Source: [facility] 5:42 PM [facility] REPOSITORY [facility] Cardiovascular Services [address] [place] [address] Carotid Duplex Ultrasound 12/27/17 0806 MR#: [id number] Acct: [id number] Name: OLIVER CUNNINGHAM Rep #: [id number] : 1960 57 From: Elizabeth Ovalle MD Attending Dr: Elizabeth Ovalle MD Status: REG CLI Ordering Dr: Elizabeth Ovalle MD Date: 12/27/17 Location: [facility] Sex: M C Admitted: Reason For Study: ATHEROSCLEROSIS Rt. Velocities/BP Lt. Velocities/BP Prox CCA 94/24 cm/sec. Prox CCA 123 cm/sec. Mid CCA 84/32 cm/sec. Mid CCA 72/27 cm/sec. Dist CCA 76/26 cm/sec. Dist CCA 90/38 cm/sec. Prox ICA 42/19 cm/sec. Prox ICA 97/23 cm/sec. Mid ICA 52/24 cm/sec. Mid ICA 53/22 cm/sec. Dist ICA 76/36 cm/sec. Dist ICA 92/42 cm/sec. Rt. ICA/CCA = .9. Lt. ICA/CCA = 1.35. Prox ECA 125/25 cm/sec. Prox ECA 73/20 cm/sec. Rt. Vert. 46/23 cm/sec. Lt. Vert. 61/24 cm/sec. Right Extracranial There is homogeneous, smooth atherosclerotic plaque noted in the right common carotid artery. There is heterogeneous, irregular atherosclerotic plaque noted in the right internal carotid artery. There is heterogeneous, irregular atherosclerotic plaque noted in the right external carotid artery. Antegrade flow is noted in the right vertebral artery. Left Extracranial There is homogeneous, smooth atherosclerotic plaque noted in the left common carotid artery. There is heterogeneous, irregular atherosclerotic plaque noted in the left internal carotid artery. There is homogeneous, smooth atherosclerotic plaque noted in the left external carotid artery. Antegrade flow is noted in the left vertebral artery. Procedure Carotid Duplex [id number]. Exam performed in department. Interpretation Summary Mild (<50%) stenosis right extracranial internal carotid. Mild (<50%) stenosis left extracranial internal carotid. Flow within the vertebral arteries is antegrade bilaterally. Ordering Physician: Elizabeth Ovalle Referring Physician: Elizabeth Ovalle Performed By: Liss Dejesus RDCS, RVT 12/27/172 Date Elizabeth Ovalle MD CC: No Primary Care Physician; Elizabeth Ovalle MD Date Dictated: 12/27/17805 Date Transcribed: 12/27/171741 Nutrition Services Worker: Signed DISCH.SUM Observed: 12/21/2017 Status: UNK Source: [facility] 1:17 PM [facility]ENTER [facility] Patient Name: OLIVER CUNNINGHAM [address] Date of : 62 [place] [address] Unit Number: [id number] Discharge Summary Patient Status: DIS IN Attending Doctor: Ruben Bernard MD Service Date: 12/21/17 1317 Discharge Summary Admit Date Admission Date Time: 11/22/172131 Anticipated Discharge Date 11/25/17 Final Dx/Problem List 1. Nicotine dependence On Sat 2:30p Nov 23, 2017 JERMAN RIVAS wrote Smoking cessation discussed, he declined nicotine patches at this time 2. Atypical chest pain On Sun 8:47p Nov 24, 2017 JERMAN RIVAS wrote Awaiting MIBI test results, 2 day protocol On Sat 2:30p Nov 23, 2017 JERMAN RIVAS wrote Cardiac workup underway Troponins are negative He can likely be discharged after his stress test is negative, but may benefit from a catheterization to evaluate his coronary anatomy due to his atypical and recurrent symptoms. We discussed risk reduction today 3. COPD (chronic obstructive pulmonary disease) with chronic bronchitis On Sun 8:47p Nov 24, 2017 JERMAN RIVAS wrote Stable, no changes On Sat 2:30p Nov 23, 2017 JERMAN RIVAS wrote Continue DuoNeb He is not on regular maintenance inhalers at this time. 4. Recurrent syncope 5. Hypertension Chief Complaint/HPI Atypical chest pain Reason for Admission Atypical chest pain Hospital Course This 57-year-old man developed midsternal chest pain 7 hours prior to admission. The pain did not radiate, was described as heaviness, without nausea vomiting or dyspnea. He had multiple syncopal episodes 2 weeks prior to his presentation. He was seen in the [place], [place] for this complaint 3 weeks ago. He had a stress test and was released. He was notified by the hospital that he may need a heart catheterization but he did not have it done because he was returning to [place]. Past medical history: Multiple sclerosis, hypertension, [id number]-dmbb nicotine addiction, COPD. Possible peripheral arterial disease. Past surgical history: Bilateral herniorrhaphy 1 year ago, with mesh placement. Chronic pain in his lower abdomen and pelvis after mesh placement. Family history was not remarkable for early cardiac disease. 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 No substance abuse history. Cardiology was consulted, Dr. Ibanez, who felt his chest pain was noncardiac in origin. His recurrent syncope was likely due to orthostatic hypotension and recommended increasing salt and fluid with compression stockings. Records were requested from [place] but never arrived. The patient had a Lexiscan stress test on November 22, 2017, which showed he achieved 74% of maximum predicted heart rate, rate pressure product of 221, adequate workload. During the pharmacologic stress test there was no evidence of dysrhythmias, no evidence of hyper or hypotensive responses. ST segment depression was increased compared to baseline but not suggestive of ischemia. The impression was an inconclusive pharmacologically induced EKG stress test, with changes secondary to baseline ST abnormalities. Nuclear images showed no definite area of ischemia, left ventricular ejection fraction 56% with end-diastolic volume of 85 mL's. Mild stress dilation was noted, nonspecific. Cardiology recommended medical management, and follow-up with his primary physician. No catheterization was indicated. Vital Signs Vital Signs (Last) Result Date Time Pulse Ox 95 08/20 1745 B/P 145/88 11/25 1745 Temp 98.6 11/25 1745 Pulse 85 11/25 1745 Resp 17 11/25 1745 O2 Delivery ROOM AIR 11/25 1305 Pertinent Physical Findings The physical exam on admission was remarkable for rare crackles at the lung bases, diminished breath sounds bilaterally, cardiac exam was regular and rapid, S1-S2 were distant. Consults Cardiology Labs/Imaging Admission white count was 12,800, hemoglobin 14.3, hematocrit 42.4 white cell differential normal. Chemistries were remarkable for potassium 3.4, chloride 107, troponin 0. EKG was normal sinus rhythm at 100/min, with nonspecific ST- T changes, no changes compared to October 29, 2017. Prescriptions Stop taking the following medications: LORazepam* (Ativan 0.5MG Tab*) 0.5 MG TABLET ORAL 2 TIMES DAILY Continue taking these medications: Mirtazapine* (Remeron 30MG Tab*) 30 MG TABLET 30 MILLIGRAM ORAL AT BEDTIME Aspirin* (Aspir 81 MG Tab*) 81 MG TABLET.DR 81 MILLIGRAM ORAL DAILY WITH A MEAL [place]-3 Fatty Acids/Fish Oil* (Fish Oil 1,000 MG Softgel*) 1 EACH CAPSULE 1 CAPSULE ORAL EVERY DAY Albuterol Sulfate (Proair Hfa Inhaler) 8.5 GM HFA.AER.AD 2 PUFFS INHALATION* 2 TIMES DAILY Start taking the following new medications: Atorvastatin Calcium (Atorvastatin Calcium) 40 MG TABLET 40 MILLIGRAM ORAL AT BEDTIME Days = 30 Qty = 30 No Refills Nitroglycerin (Nitroquick) 0.4 MG TAB.SUBL 0.4 MILLIGRAM SUBLINGUAL EVERY 5 MINUTES NEEDED as needed for Angina Days = 30 Qty = 1 No Refills Instructions: DO NOT LET THIS MEDICATION RUN OUT OR ; GET REFILLS FROM YOUR REGULAR DOCTOR. Referrals Ordered Referrals Anesthesiology For Groups: [facility] [address] [facility] [address] [place] [address] Condition: Stable, Unchanged Disposition Home Additional Information Patient had no primary care physician and was urged to find one during this admission. Homecare Requested No Disclaimer This dictation was created using voice recognition software. Phonetic and/or minor grammatical errors may exist. eSign Date and Time Jerman Rivas MD Verified/Reviewed by 12/21/17 1332 CASE MANAGEM Observed: 12/19/2017 Status: COMPLETED Source: [place] 4:25 PM [facility] REPOSITORY HNO ID: [id number] Author: Destinee Navarro (Sw) Service: Social Work Author Type: Electric Stove Installer Type: Care Mgt Progress Note Filed: 12/19/2017 4:41 PM Note Text: CARE MANAGEMENT PROGRESS NOTE SERVICE DATE: 12/19/2017 Social Work Consult: This SW was paged by the E.D. medical staff while pt. was still waiting to get a bed in the E.D. Pt. has an Individualized Care Plan. Plan: 1. This SW reviewed pt's ICP which recommends that SW suggest that pt. go for therapy in addition to seeing a psychiatrist. 2. This SW [facility] (pt. lives in [place], [place]) and printed out places within 5 miles of pt's residence that offer counseling and take pt's insurance. These agencies include [facility]; [facility] and another site for [facility]. Pt's information includes addresses, intake phone numbers and comprehensive descriptions of services offered at each agency. 3. This SW gave info to the senior interaction designer SW to give to pt. when he gets a bed in the Emergency Dept. SIGNATURE: DHRUV Carrera PATIENT NAME: Oliver Cunningham DATE: December 19, 2017 TIME: 4:36 PM PAGER/CONTACT #: [id number] Observed: 12/19/2017 Status: F Source: [place] 2:04 PM [facility] REPOSITORY NAME : OLIVER CUNNINGHAM PID : [id number] : 1960 Gender : Male Race : ORD : Procedure Date : Dec 19 2017 14:04:13 Edit Date : Dec 20 2017 08:20:32 Diagnosis:NORMAL SINUS RHYTHM NONSPECIFIC ST ABNORMALITY ABNORMAL ECG NOTE: PLEASE SEE PHYSICIAN'S NOTE FROM E.D. VISIT Confirmed by Sherwin HERNANDEZ JOHN ([id number]), medical editor TOMMIE GREENE ([id number]) on 12/20/2017 8:20:27 AM Ventricular Rate : 100 BPM Atrial Rate : 100 BPM P-R Interval : 122 ms QRS Duration : 92 ms Q-T Interval : 346 ms QTC Calculation(Bezet) : 446 ms P Derby Line : 77 degrees R Derby Line : 89 degrees T Derby Line : 70 degrees Test Reason : Location : 2 : EDNS 063 Overread By : Sherwin HERNANDEZ JOHN Edited By : TOMMIE GREENE Referred By : , Acquired by : DW, DISCHARGE INSTRUCTION Observed: 12/14/2017 Status: F Source: [place] 9:05 PM [facility] REPOSITORY [facility] Medical Records Department [address] [place] [address] Discharge Instruction 12/14/172103 MR#: [id number] Acct: [id number] Name: OLIVER CUNNINGHAM Rep #: [id number] : 1960 57 From: Jes Mitchell MD PCP: Care Physician, No Primary Status: REG ER ED Disposition - Plan for ED Patient: Disposition: Home or Assisted Living Chief Complaint: Abd Pain Instructions: ED Abdominal Pain Unkn Cause Prescriptions: Naproxen [Naprosyn] 500 mg PO BID PRN #20 tab Referrals: Care Physician,No Primary [Primary Care Provider] - 5-7 Days What to do if you have Problems For any increased pain, shortness of breath, bleeding, nausea or vomiting, chest pain, or any unexpected problems, contact your Primary Care Provider. Call [facility] ([phone]) or report to the closest Emergency Room. Call 911 if necessary. 12/14/172104 <Electronically signed by Jes Mitchell MD> Date Jes Mitchell MD Cosigner Signature (If Indicated): Date CC: No Primary Care Physician EMERGENCY DEPARTMENT Observed: 12/14/2017 Status: F Source: [place] SUMMARY 9:04 PM [facility] REPOSITORY [facility] Medical Records Department [address] [place] [address] Emergency Department Summary 12/14/171906 MR#: [id number] Acct: [id number] Name: OLIVER CUNNINGHAM Rep #: [id number] : 1960 57 From: Jes Mitchell MD PCP: Care Physician, No Primary Status: REG ER - ER Visit Summary Date of Service: 12/14/17 Chief Complaint: Abdominal pain History of Present Illness: The patient is a 57 M with abdominal pain for about a year, however this is worse today and he feels like his right inguinal mesh is infected. Apparently he has had these infections in the past. He has no fever chills. He has no diarrhea constipation or flank pain. He has no upper abdominal pain. Physical Examination: [] Patient does not appear in acute distress. Moist mucous membranes, no obvious facial deformity No C-spine tenderness supple neck. Regular rate and rhythm without any obvious murmurs Clear lungs bilaterally speaking in full sentences without any obvious respiratory distress Abdomen soft and with inguinal tenderness guarding or rebound. No swelling in that region, no pallor or erythema or any signs of infection. Moves all extremities without any difficulty or pain. Skin does not show any obvious rashes or lesions, no trauma. Alert oriented 3 with no gross focal deficit Emergency Department Course and Treatment: Has a negative CT. White counts 8 he appears well and nontoxic I do not see an infection he probably has pain in his mesh which is at multiple times I will discharge him with reassurance. Discharge stable condition Impression: Abdominal pain, chronic recurrent This note was generated with [employer] dictation software. It may contain incorrect words, spelling, and punctuation that were not noted in review of the chart prior to signing ED Disposition - Plan for ED Patient: Disposition: Home or Assisted Living Chief Complaint: Abd Pain Instructions: ED Abdominal Pain Unkn Cause Prescriptions: Naproxen [Naprosyn] 500 mg PO BID PRN #20 tab Referrals: Care Physician,No Primary [Primary Care Provider] - 5-7 Days What to do if you have Problems For any increased pain, shortness of breath, bleeding, nausea or vomiting, chest pain, or any unexpected problems, contact your Primary Care Provider. Call [facility] ([phone]) or report to the closest Emergency Room. Call 911 if necessary. 12/14/17 1057 <Electronically signed by Jes Mitchell MD> Date Jes Mitchell MD Cosignradha Signature (If Indicated): Date CC: No Primary Care Physician CBC W/DIFF, AUTOMATED Collected: 12/14/2017 Status: F Source: [place] 7:10 PM [facility] REPOSITORY TYPE CODE TESTS RESULT OUT OF RANGE REFERENCE UNITS LAB L100.1000 4.4-11.0 K/mm3 Normal WBC 8.5 LAB L100.1200 4.6-6.2 M/mm3 Normal RBC 4.80 LAB L100.1300 13.0-16.5 g/dl Normal HGB 15.5 LAB L100.1400 40-54 % Normal HCT 44.6 LAB L100.1500 80-94 fL Normal MCV 92.9 LAB L100.1600 27.0-32.0 pg High MCH 32.3 LAB L100.1700 32-36 g/gl Normal MCHC 34.8 LAB L100.1810 11.6-14.6 % Normal RDW CV 12.7 LAB L100.1820 35.1-43.9 fl Normal RDW SD 42.6 LAB L100.1900 150-450 K/mm3 Normal PLT 243 LAB L100.2000 6.2-12.0 fl Normal MPV 9.0 LAB L100.2100 47-70 % Normal NEUT% 67.7 LAB L100.2200 19-41 % Normal LY% 20.6 LAB L100.2300 0-10 % High MONO% 10.3 LAB L100.2400 0-5 % Normal EO% 0.9 LAB L100.2500 0-1 % Normal BASO% 0.4 LAB L100.2550 0.0-0.9 % Normal IM GRAN % 0.100 Result Comment: IG% - Immature Granulocytes (promyelocytes, myelocytes and metamyelocytes) > 1% indicates that a LEFT SHIFT is Present. LAB L100.2620 2.0-7.7 X10 3/uL Normal Absolute Neut 5.8 LAB L100.2720 0.83-4.51 X10 3/ul Normal Absolute Lymph 1.76 Performed By: #### L100.0100 #### [facility] [place], [address] COMPREHENSIVE METABOLIC Collected: 12/14/2017 Status: F Source: [place] [facility] 7:10 PM [facility] REPOSITORY TYPE CODE TESTS RESULT OUT OF RANGE REFERENCE UNITS LAB L501.0100 74-106 mg/dL High GLU 141 Result Comment: Fasting Glucose result greater than or equal to 126 mg/dL suggests DIABETES MELLITUS per A.D.A. criteria. Please note revised GLUCOSE reference range effective 2017. LAB L501.1000 7-18 mg/dL Normal BUN 14 LAB L501.1100 0.70-1.30 mg/dL Normal CREAT,SERUM 0.91 Result Comment: The validity of the calculated GFR AND GFRAA in patients over 70 years has not been determined. Clinical correlation is essential. LAB L501.1110 >60 mL/min Normal EST GFR 92 Result Comment: Non- GFR Calc LAB L501.1115 >60 mL/min Normal EST GFR - AA 111 Result Comment: GFR Calc LAB L501.1255 ml/min Normal Estimated CRCL 96.54 LAB L501.1300 10-20 RATIO Normal BUN/CRE 15.4 LAB L501.1500 6.4-8. g/dL Normal 2 T PROT 6.9 LAB L501.1800 3.2-5. g/dL Normal 0 ALB 3.6 LAB L501.1950 2.2-4. g/dL Normal 2 GLOB 3.3 LAB L501.2000 0.9-2. RATIO Normal 4 A/G 1.1 LAB L501.2200 8.5-10 mg/dL Low .1 CA 8.3 LAB L501.4100 15-37 U/L Normal AST 19 LAB L501.4305 45-117 U/L Normal ALK P 76 LAB L501.4405 16-61 U/L Normal ALT 22 LAB L501.4600 0.20-1 mg/dL Normal .00 T BILI 0.30 LAB L501.5300 136-14 mmol/L Normal 5 NA 144 LAB L501.5600 3.5-5. mmol/L Low 1 K 3.3 LAB L501.5900 98-107 mmol/L High CL 108 LAB L501.6100 21.0-3 mmol/L Normal 2.0 CO2 27.0 LAB L501.6200 5-15 Normal GAP 9 Performed By: #### L500.4050 #### [facility] [address] [place], [address] ABDOMEN/PELVIS WITHOUT Observed: 12/14/2017 Status: F Source: [place] CONT 7:02 PM [facility] REPOSITORY [facility] Imaging Services [address] [place] [address] Abdomen/Pelvis without Cont MR#: [id number] Acct: [id number] Name: OLIVER CUNNINGHAM Rep #: [id number] : 1960 M 57 From: George Ramon DO PCP: Care Physician, No Primary Status: REG ER Study: Abdomen/Pelvis without Cont Date of Exam: 12/14/17 Exam# [id number] Ordering Dr: Jes Mitchell MD STUDY: CT ABDOMEN AND PELVIS WITHOUT CONTRAST REASON FOR EXAM: Male, 57 years old. Abdominal pain in the groin RADIATION DOSAGE (If Supplied By Facility): CTDIvol = ( 10.05 ) mGy, DLP = ( 681.90 ) mGycm TECHNIQUE: Transaxial images were obtained from the dome of the diaphragm to the symphysis pubis without oral contrast, and without intravenous contrast. Sagittal and coronal images were reconstructed. Individualized dose optimization techniques were used for this CT. COMPARISON: 01/21/2017 FINDINGS: The visualized lung bases are unremarkable. The visualized portions of the heart are within normal limits. Normal liver. There are surgical clips in the gallbladder fossa consistent with a prior cholecystectomy. Normal spleen. Normal pancreas. Normal bilateral adrenal glands. Unremarkable right kidney. Stable small left lower pole renal cyst. No evidence of urolithiasis or renal obstruction. Normal visualized stomach. Normal small intestine. There are multiple colonic diverticula consistent with diverticulosis. The appendix is visualized and appears normal. There is diffuse atherosclerotic calcification of the abdominal aorta, without a demonstrated aneurysm. Normal inferior vena cava. Normal retroperitoneum. Normal urinary bladder. Normal visualized prostate gland. Prior bilateral hernia repair in the inguinal canal region without evidence of recurrence. There are diffuse degenerative changes of the visualized lumbar spine. CT/Abdomen/Pelvis without Cont IMPRESSION: No acute findings. Remainder as above. Electronically Signed: George Ramon DO at 20:14 EDT Tel , Service support , CC: No Primary Care Physician; Jes Mitchell MD Nutrition Services Worker: Signed ED NOTE Observed: 12/06/2017 Status: COMPLETED Source: [place] 9:07 PM [facility] [place] REPOSITORY HNO ID: [id number] Author: Keagan (Rn) KIMBERLEE Sorensen Service: (none) Author Type: Registered Nurse Type: ED Notes Filed: 12/06/2017 9:07 PM Note Text: The patient verbalizes understanding of discharge instructions. No additional questions or concerns at this time. Patient Vital signs stable, no acute distress noted. Patient ambulatory out of ED. Prescription(S) x 0 given. HIGH SENS TROPONIN T Collected: 12/06/2017 Status: F Source: [place] 8:48 PM [facility] [place] REPOSITORY TYPE CODE TESTS RESULT OUT OF REFERENCE UNITS RANGE LAB HSTN <12 ng/L High Sensitivity ILEANA 7 Result Comment: When assessing risk for acute coronary syndromes: In patients undergoing blood draw greater than or equal to 2 hours from symptom onset, with history of very low to moderate risk and non-ischemic ECG, an initial hs-Troponin T less than 12 ng/L AND a 1 hour delta hs-Troponin T less than 3 ng/L should be considered very low risk for 30 day MACE. Performed By: #### HSTNT #### [facility] [address] [place] [address] CBC AND DIFFERENTIAL Collected: 12/06/2017 Status: F Source: [place] 7:53 PM [facility] OTHER [facility]AMP[facility] REPOSITORY TYPE CODE TESTS RESULT OUT OF REFERENCE UNITS RANGE LAB WBC 3.70-11.00 k/uL WBC 8.39 LAB RBC 4.20-6.00 m/uL RBC 4.68 LAB HGB 13.0-17.0 g/dL Hemoglobin 14.9 LAB HCT 39.0-51.0 % Hematocrit 43.4 LAB MCV 80.0-100.0 fL MCV 92.7 LAB MCH 26.0-34.0 pG MCH 31.8 LAB MCHC 30.5-36.0 g/dL MCHC 34.3 LAB RDWCV 11.5-15.0 % RDW-CV 12.9 LAB PLTCT 150-400 k/uL Platelet Count 230 LAB MPV 9.0-12.7 fL MPV 9.1 LAB ANEUT % Neut% 66.1 LAB AANEUT 1.45-7.50 k/uL Abs Neut 5.55 LAB ALYMP % Lymph% 24.1 LAB AALYMP 1.00-4.00 k/uL Abs Lymph 2.02 LAB AMONO % Mellette% 9.1 LAB AAMONO <0.87 k/uL Abs Mellette 0.76 LAB AEOS % Eosin% 0.5 LAB AAEOS <0.46 k/uL Abs Eosin 0.04 LAB ABASO % Baso% 0.2 LAB AABASO <0.11 k/uL Abs Baso <0.03 Performed By: #### CBCDIF, PT, PTT, CMP, LIPA, MG1 #### [facility] [address] [place] [address] PROTIME Collected: 12/06/2017 Status: F Source: [place] 7:53 PM [facility] OTHER [facility]AMP[facility] REPOSITORY TYPE CODE TESTS RESULT OUT OF RANGE REFERENCE UNITS LAB PSEC 9.7-13.0 sec PT Sec 9.9 LAB INR 0.9-1.3 PT INR 1.0 Result Comment: Vitamin K Antagonist (VKA) Therapeutic Range: INR 2 to 3 (Target INR of 2.5) Note: For patients treated with VKA drugs, such as warfarin, the [place] [employer] 2012 Guideline recommends a therapeutic INR range of 2 to 3 (target INR of 2.5). This recommendation includes high-risk patients with antiphospholipid syndrome with previous arterial or venous thromboembolism, current-generation mechanical or bioprosthetic aortic heart valve replacement. Note: Patients with mechanical aortic valve replacement and additional risk factors for thromboembolic events (atrial fibrillation, previous thromboembolism, LV dysfunction, hypercoagulable conditions) or an older generation mechanical AVR (i.e., ball in-Cage) or any mechanical MVR should have a INR therapeutic range of 2.5 to 3.5 (target INR of 3). Roberto GH, et al. Chest 2012, 141:7S-47S Dee RA, et al. [facility] 2017, 70: 252-289 Performed By: #### CBCDIF, PT, PTT, CMP, LIPA, MG1 #### [facility] [address] [place] [address] APTT Collected: 12/06/2017 Status: F Source: [place] 7:53 PM [facility] [place] REPOSITORY TYPE CODE TESTS RESULT OUT OF RANGE REFERENCE UNITS LAB APTT 23.0-32.4 sec APTT 27.1 Result Comment: Unfractionated Heparin Therapeutic Ranges: Standard Heparin Nomogram: 53 to 78 seconds (anti-Xa level of 0.3 to 0.7 U/ml) Low Dose/ACS Nomogram: 49 to 67 seconds (anti-Xa level of 0.2 to 0.5 U/ml) Stroke Treatment Nomogram: 49 to 67 seconds (anti-Xa level of 0.2 to 0.5 U/ml) Note: The APTT therapeutic range has been determined for the current lot of laboratory APTT reagent in use throughout the [facility]. Performed By: #### CBCDIF, PT, PTT, CMP, LIPA, MG1 #### [facility] [address] [place] [address] COMP METABOLIC PANEL Collected: 12/06/2017 Status: F Source: [place] 7:53 PM [facility] REPOSITORY TYPE CODE TESTS RESULT OUT OF REFERENCE UNITS RANGE LAB TP 6.3-8.0 g/dL Protein, Total 6.6 LAB ALB 3.9-4.9 g/dL Albumin 4.0 LAB CA 8.5-10.2 mg/dL Calcium, Total 8.8 LAB TBIL 0.2-1.3 mg/dL Bilirubin, Total 0.3 LAB ALKP 36-108 U/L Alkaline Phosphatase 61 LAB AST 14-40 U/L AST 15 LAB GLU 74-99 mg/dL Glucose 98 Result Comment: The [place] Diabetes Association (ADA) provides guidance for cutoff values for fasting glucose and random glucose. The ADA defines fasting as no caloric intake for at least 8 hours. Fas ting plasma glucose results between 100 to 125 mg/dL indicate increased risk for diabetes (prediabetes). Fasting plasma glucose results greater than or equal to 126 mg/dL meet the criteria for diagnosis of diabetes. In the absence of unequivocal hyperglycemia, results should be confirmed by repeat testing. In a patient with classic symptoms of hyperglycemia or hyperglycemic crisis, random plasma glucose results greater than or equal to 200 mg/dL meet the criteria for diagnosis of diabetes. Reference: Standards of Medical Care in Diabetes 2016, [place] [employer] Association. Diabetes Care. 2016.39(Suppl 1). LAB BUN 9-24 mg/dL BUN Low 5 LAB CRET 0.73-1.22 mg/dL Creatinine Low 0.65 LAB NA 136-144 mmol/L Sodium 138 LAB K 3.7-5.1 mmol/L Potassium Low 3.5 LAB CL 97-105 mmol/L Chloride 101 LAB CO2 22-30 mmol/L CO2 27 LAB AGAP 9-18 mmol/L Anion Gap 10 LAB ALT 10-54 U/L ALT 13 LAB GFRAA eGFR- Amer. >60 LAB GFRNAA . eGFR-All Other Races >60 Result Comment: eGFR (Estimated GFR) Units of measure: mL/min/1.73 meters squared eGFR is derived from the reexpressed MDRD Study equation using the following parameters: serum creatinine, age, gender and race. The creatinine assay has been calibrated to be traceable to IDMS. An eGFR <60 mL/min/1.73m2 for >3 months is consistent with chronic kidney disease. Refer to KDOQI guidelines for clinical interpretation. In patients with unstable renal function, e.g. those with acute kidney injury, the eGFR may not accurately reflect actual GFR. Performed By: #### CBCDIF, PT, PTT, CMP, LIPA, MG1 #### [facility] [address] [place] [address] LIPASE Collected: 12/06/2017 Status: F Source: [place] 7:53 PM [facility] REPOSITORY TYPE CODE TESTS RESULT OUT OF REFERENCE UNITS RANGE LAB LIPA 16-61 U/L Lipase 29 Performed By: #### CBCDIF, PT, PTT, CMP, LIPA, MG1 #### [facility] [address] [place] [address] MAGNESIUM Collected: 12/06/2017 Status: F Source: [place] 7:53 PM [facility] REPOSITORY TYPE CODE TESTS RESULT OUT OF REFERENCE UNITS RANGE LAB MG 1.7-2.3 mg/dL Magnesium 2.1 Performed By: #### CBCDIF, PT, PTT, CMP, LIPA, MG1 #### [facility] [address] [facility] [phone] HIGH SENS TROPONIN T Collected: 12/06/2017 Status: F Source: [place] 7:53 PM [facility] REPOSITORY TYPE CODE TESTS RESULT OUT OF REFERENCE UNITS RANGE LAB HSTN <12 ng/L High Sensitivity ILEANA 7 Result Comment: When assessing risk for acute coronary syndromes: In patients undergoing blood draw greater than or equal to 2 hours from symptom onset, with history of very low to moderate risk and non-ischemic ECG, an initial hs-Troponin T less than 12 ng/L AND a 1 hour delta hs-Troponin T less than 3 ng/L should be considered very low risk for 30 day MACE. Performed By: #### HSTNT #### [facility] [address] [place] [address] CK, TOTAL AND CKMB Collected: 12/06/2017 Status: F Source: [place] 7:53 PM [facility] REPOSITORY TYPE CODE TESTS RESULT OUT OF REFERENCE UNITS RANGE LAB CK 51-298 U/L 94 CK LAB MB <7.7 ng/mL MB 1.9 LAB CKMBRI 0.0-4.0 % CK CK MB MB % not % reported with CK <100 U/L. Performed By: #### CKCKMB #### [facility] [address] [place] [address] ED PROV NOTE Observed: 12/06/2017 Status: COMPLETED Source: [place] 7:39 PM [facility] OTHER [place] REPOSITORY HNO ID: [id number] Author: Handy Ralph MD Service: (none) Author Type: Physician Type: ED Provider Notes Filed: 12/06/2017 8:57 PM Note Text: ED Provider Note Patient Name: Oliver Cunningham SERVICE DATE: 12/06/17 History Patient presents with: Heartburn Back Pain Mr. Cunningham is a 57-year-old male with a history of mesh to his groin and MS now presenting with ongoing lower abdominal discomfort that has started to radiate up into his chest again. He also has some diffuse abdominal discomfort and back discomfort. He thinks his hernia mesh is messing with his arteries. He states that he passes out every day, for the past few months. This happens while he is walking around his house. He denies nausea or vomiting or diarrhea or fevers or chills. PAST MEDICAL HISTORY Diagnosis Date - Black spider bite 10/2007 - Cervical radiculopathy - CHI (closed head injury) 20 years ago. 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 PAST SURGICAL HISTORY Procedure Laterality Date - AMPUTATION FINGER/THUMB 05/29/10 Traumatic, Right middle, ring and distal - BACK SURGERY HX - CHOLECYSTECTOMY HX - COLONOSCOPY 11/20 - COLONOSCOPY 03/2016 - EGD W/O OR W/BRUSH/WASH 06/24/13 EGD - HERNIA REPAIR HX 2013 umbilical - HERNIA REPAIR HX Bilateral 05/2016 Bilateral Inguinal Hernia repair - ORTHOPEDICS SURGERY HX - PAST SURGICAL HISTORY OF 1993 lumbar diskectomy - REMOVAL GALLBLADDER 1998 laparoscopic - REMOVE TONSIL AND ADENOI UNDER AGE 13 remote - ROTATOR CUFF REPAIR 05/24/11 Right Shoulder - ROTATOR CUFF REPAIR 07/10/11 Left shoulder - TONSILLECTOMY HX FAMILY HISTORY Problem Relation Age of Onset - Emphysema Mother - Cancer Mother lung/glioblastoma(Brain) - Thyroid Mother - Heart Mother - other (charcot samir tooth) Mother - other (GBM) Mother - Coronary Artery Disease Father MA and CABG - other (MS) Daughter - Lipids Paternal Grandfather - Lipids Brother - Psychiatry Sister - Kidney Disease Daughter - Psychiatry Daughter bipolar disorder Social History Social History Main Topics - Smoking status: Current Every Day Smoker Packs/day: 0.25 Years: 45.00 Types: Cigarettes Start date: 04/08/1977 - Smokeless tobacco: Never Used - Alcohol use No Comment: none - Drug use: No - Sexual activity: Not Currently Partners: Female ALLERGIES Allergen Reactions - Hydrocodone GI Upset Feels like bleeding Inside stomach - Lyrica [Pregabalin] Intolerance - Aubagio [Teriflunom* Other: See Comments Passed out - Bentyl [Dicyclomine* Other: See Comments - Celexa [Citalopram * Other: See Comments Terrible headaches. - Copaxone [Glatirame* Rash, Itching - Cymbalta [Duloxetin* Other: See Comments chest pain, abnormal sensation/feeling in chest - Erythromycin Other: See Comments turns everything to stone inside my bowels - Fenofibrate Intolerance chest pain and numbness - Hctz [Amiloride-Hyd* Other: See Comments Tripping, falling, no sense of balance - Lipitor [Atorvastat* Other: See Comments ruq PAIN - Miralax [Polyethyle* Swelling, GI Upset Swollen abdomen - go lightly - Mobic [Meloxicam] Itching - Morphine Other: See Comments Side pain - Penicillins Rash high fevers - Pravastatin Other: See Comments Muscle soreness - Prilosec [Omeprazol* Other: See Comments increased abdominal pressure, travels up to the chest area - Reglan [Metoclopram* GI Upset Also gives chest pain - Welchol [Colesevela* Other: See Comments Abdomen and chest pain - Xifaxan [Rifaximin] Other: See Comments Insomnia Review of Systems Constitutional: Positive for fatigue. Negative for chills and fever. HENT: Negative for ear pain, rhinorrhea and sore throat. Respiratory: Negative for cough and shortness of breath. Cardiovascular: Positive for chest pain. Negative for leg swelling. Gastrointestinal: Positive for abdominal pain. Negative for diarrhea, nausea and vomiting. Genitourinary: Negative for dysuria, flank pain, frequency and hematuria. Musculoskeletal: Positive for back pain. Skin: Negative for rash. Neurological: Negative for speech difficulty, weakness, light-headedness, numbness and headaches. Psychiatric/Behavioral: Negative for hallucinations and suicidal ideas. Physical Exam BP 198/80 Pulse 95 Temp (Src) 98 (Oral) Resp 18 Ht 5' 11 (1.80m) Wt 184 lb (83.5kg) SpO2 98% BMI 25.67 kg/(m2). Physical Exam Constitutional: He is oriented to person, place, and time. Chronically ill, unchanged HENT: Head: Normocephalic and atraumatic. Mouth/Throat: No oropharyngeal exudate. Eyes: Pupils are equal, round, and reactive to light. Neck: Normal range of motion. Neck supple. No tracheal deviation present. Cardiovascular: Normal rate and intact distal pulses. Exam reveals no gallop and no friction rub. No murmur heard. Pulmonary/Chest: Effort normal and breath sounds normal. No respiratory distress. He has no wheezes. He has no rales. Abdominal: Soft. Bowel sounds are normal. He exhibits no distension. There is no tenderness. There is no rebound and no guarding. Musculoskeletal: Normal range of motion. He exhibits no edema. Neurological: He is alert and oriented to person, place, and time. No cranial nerve deficit. He exhibits normal muscle tone. Skin: Skin is warm and dry. No erythema. There is pallor. Psychiatric: He has a normal mood and affect. His behavior is normal. Judgment and thought content normal. Nursing note and vitals reviewed. Diagnostic Testing ED Labs Ordered and Reviewed - No data to display Procedures ED Course / Clinical Impression Clinical Impressions as of Dec 06 2056 Chest pain, unspecified type Lower abdominal pain MDM / Disposition / Plan Course: Vital signs were reviewed. Triage records were reviewed. Medical records were reviewed. Nursing notes were reviewed and incorporated. Patient placed on monitor ECG reviewed and interpreted as NSR @ 99 bpm no STEMI normal intervals and axis Labs reviewed and interpreted as below. Medical Decision Making: Differential diagnosis: ACS is likely, pneumothorax, pneumonia, perforation or obstruction less likely, electronic disarray, anemia, other causes of similar symptoms. Assessment and plan: Mr. Cunningham is a 57 yo male presenting today with ongoing lower abdominal pain radiating to his chest. We will do a brief workup and reassess. Negative w/u. HR 70s. Will d/c home w/ close f/u. He is worried about his arteries, but has wonderful bounding pulses. He'll return if worse. The attending who evaluated and managed this patient was Handy Ralph . Plan: The patient was discharged home with verbal and written instructions. They were instructed to return as needed for persistent or worsening symptoms or any new concerns. Consent: A procedure or transfusion was performed - No Handy Ralph MD SIGNATURE: MD Handy Tsang MD 12/06/172056 EKG Observed: 12/06/2017 Status: F Source: [place] 6:08 PM [facility] OTHER CAMPUS REPOSITORY NAME : OLIVER CUNNINGHAM PID : [id number] : 1960 Gender : Male Race : ORD : [id number] Procedure Date : Dec 06 2017 18:08:39 Edit Date : Dec 07 2017 10:50:36 Diagnosis:NORMAL SINUS RHYTHM WITH SINUS ARRHYTHMIA NORMAL ECG WHEN COMPARED WITH ECG OF 22-OCT-2017 11:49, NO SIGNIFICANT CHANGE WAS FOUND no stemi Confirmed by Sherwin RALPH, HANDY Hunter ([id number]), medical editor LENNIE PEÑA ([id number]) on 12/07/2017 10:50:35 AM Ventricular Rate : 99 BPM Atrial Rate : 99 BPM P-R Interval : 124 ms QRS Duration : 86 ms Q-T Interval : 348 ms QTC Calculation(Bezet) : 446 ms P Derby Line : 79 degrees R Derby Line : 82 degrees T Derby Line : 72 degrees Test Reason : Chest Pain Location : 1 : ER T1 Overread By : Sherwin RALPH EDWARD F. Edited By : LENNIE PEÑA Referred By : , Acquired by : , ED NOTE Observed: 12/06/2017 Status: COMPLETED Source: [place] 6:02 PM [facility]IC OTHER CAMPUS REPOSITORY HNO ID: [id number] Author: Danni (Rn) KIMBERLEE Mancia Service: (none) Author Type: Registered Nurse Type: ED Notes Filed: 12/06/2017 6:03 PM Note Text: Pt c/o abd pain, back pain, states his hernia mesh is messing with his arteries. HEMOGRAM W/ AUTODIFF Collected: 12/03/2017 Status: F Source: [facility] 11:16 AM SYSTEM REPOSITORY TYPE CODE TESTS RESULT OUT OF REFERENCE UNITS RANGE LAB IWBC 3.6-10.7 10*3/uL WBC Normal 6.5 LAB RBC 4.40-5.90 10*6/uL RBC Normal 4.76 LAB HGB 13.0-18.0 g/dL Hemoglobin Normal 15.4 LAB HCT 40.0-52.0 % Hematocrit Normal 44.6 LAB MCV 80.0-98.0 fL MCV Normal 93.8 LAB MCH 26.0-34.0 pg MCH Normal 32.4 LAB MCHC 32.0-36.0 % MCHC Normal 34.5 LAB RDW 11.5-14.5 % RDW Normal 14.1 LAB PLT 140-440 10*3/uL Platelet Normal 230 LAB MPV 7.4-10.4 fL MPV Normal 7.6 LAB GRAN% 40.0-80.0 % Granulocytes Normal 67.4 LAB LYMP% 20.0-40.0 % Lymphocytes Normal 21.1 LAB MONO% 2.0-10.0 % Monocytes High 10.3 LAB EOS% 1.0-6.0 % Low Eosinophils 0.7 LAB BAS% 0.0-2.0 % Basophils Normal 0.5 LAB ANC 1.8-7.0 10*3/uL Abs Normal Neutrophile Cnt 4.4 LAB ALC 1.0-4.3 10*3/uL Abs Lymph Cnt Normal 1.4 LAB AMC 0.0-0.8 10*3/uL Abs Monocyte Normal Cnt 0.7 LAB AEC 0.0-0.5 10*3/uL Abs Eosin Cnt Normal 0.0 LAB ABC 0.0-0.2 10*3/uL Abs Baso Cnt Normal 0.0 Performed By: #### HEMDF, CMP3, LIPA4 #### Lost My Name [facility] [address] [place] [address] COMP METABOLIC PANEL Collected: 12/03/2017 Status: F Source: [facility] 11:16 AM SYSTEM REPOSITORY TYPE CODE TESTS RESULT OUT OF RANGE REFERENCE UNITS LAB NA3 137-145 mmol/L Sodium Normal 140 LAB K3 3.5-5.1 mmol/L Normal Potassium 3.7 LAB CL3 98-107 mmol/L Chloride Normal 104 LAB CO23 22-30 mmol/L Carbon Normal Dioxide 27 LAB ANIN3 NA Anion Gap 9 LAB GLUC3 70-100 mg/dL High Glucose 127 LAB BUN3 7-20 mg/dL Urea Normal Nitrogen 9 LAB CRET3 0.52-1.25 mg/dL Normal Creatinine 0.65 LAB GF3BR >60 mL/min eGFR > 60.0 LAB GF3WR >60 mL/min eGFR OTHER > 60.0 Result Comment: Source- MDRD equation with creatinine calibration to IDNE(NKDEP) eGFR not recommended for drug dose adjustment LAB CA3 8.4-10.4 mg/dL Calcium Normal 9.2 LAB ALB3 3.5-5.0 g/dL Albumin, Serum Normal 4.1 LAB TP3 6.3-8.2 g/dL Total Protein Normal 6.5 LAB BILT3 0.2-1.3 mg/dL Normal Bilirubin,Total 0.4 LAB ALKP3 38-126 U/L Alkaline Normal Phosphatase 67 LAB ALT3 13-69 U/L ALT (SGPT) Normal 33 LAB AST3 15-46 U/L AST (SGOT) Normal 19 Performed By: #### HEMDF, CMP3, LIPA4 #### Lost My Name [facility] [address] [place] [address] LIPASE Collected: 12/03/2017 Status: F Source: [facility] 11:16 AM SYSTEM REPOSITORY TYPE CODE TESTS RESULT OUT OF RANGE REFERENCE UNITS LAB LIPA4 23-300 U/L Normal Lipase 84 Performed By: #### HEMDF, CMP3, LIPA4 #### Lost My Name [facility] [address] [place] [address] URINALYSIS,MACRO Collected: 12/03/2017 Status: F Source: [facility] 11:16 AM SYSTEM REPOSITORY TYPE CODE TESTS RESULT OUT OF REFERENCE UNITS RANGE LAB APPUR Clear NA Appearance CLEAR LAB COLUR Lt. Yellow NA Color YELLOW LAB USG 1.005-1.030 NA Specific Normal [place],Urine 1.017 LAB UPH 5.0-8.0 NA pH,Urine Normal 5.5 LAB ULUK Negative NA Leukocytes NEG LAB UNIT Negative NA Nitrites NEG LAB UPRO Negative mg/dL Total Protein,Urine NEG LAB UGLU Negative mg/dL Glucose,Urine NEG LAB UKET Negative mg/dL Ketone,Urine TRACE LAB UURO 0-1 mg/dL Urobilinogen 0.2 LAB UBIL Negative NA Bilirubin,Ur NEG LAB UBLD Negative {RBC}/uL Occult Blood,Ur NEG Performed By: #### UAMAC #### Lost My Name [facility] [address] [place] [address] URINALYSIS,MACRO Collected: 11/29/2017 Status: F Source: [facility] 3:36 PM SYSTEM REPOSITORY TYPE CODE TESTS RESULT OUT OF REFERENCE UNITS RANGE LAB APPUR Clear NA Appearance CLEAR LAB COLUR Lt. Yellow NA Color YELLOW LAB USG 1.005-1.030 NA Specific Normal [place],Urine 1.012 LAB UPH 5.0-8.0 NA pH,Urine Normal 6.0 LAB ULUK Negative NA Leukocytes NEG LAB UNIT Negative NA Nitrites NEG LAB UPRO Negative mg/dL Total Protein,Urine NEG LAB UGLU Negative mg/dL Glucose,Urine NEG LAB UKET Negative mg/dL Ketone,Urine NEG LAB UURO 0-1 mg/dL Urobilinogen 0.2 LAB UBIL Negative NA Bilirubin,Ur NEG LAB UBLD Negative {RBC}/uL Occult Blood,Ur NEG Performed By: #### UAMAC #### [facility] [address] [place] [address] EMERGENCY DEPARTMENT Observed: 11/29/2017 Status: F Source: [place] SUMMARY 3:34 PM [facility] REPOSITORY [facility] Medical Records Department [address] [place] [address] Emergency Department Summary 11/29/17 1240 MR#: [id number] Acct: [id number] Name: OLIVER CUNNINGHAM Rep #: [id number] : 1960 57 From: Javi Cuellar MD PCP: Care Physician, No Primary Status: DEP ER - ER Visit Summary Date of Service: 11/29/17 Chief Complaint: Acute on chronic abdominal pain. History of Present Illness: The patient is a 57 M 3 of prior bilateral inguinal hernias with mesh. Also positive umbilical hernia surgery. Patient had this done in May 2016 at [facility]. He has had pain ever since he has been seen here multiple times. He is seen. He states at least 20 different surgeons including surgeons locally. Also in [facility] and [place]. No surgon is going to remove the mesh. He is frustrated by this. Physical Examination: Oh. No acute distress. Vital signs stable afebrile. H EENT exam unremarkable strong smell tobacco. Neck nontender. Lungs coarse breath sounds no rales or rhonchi. Heart regular rhythm. Abdomen soft. Nondistended normal bowel sounds no peritoneal signs. He complains of pain suprapubically and in both lower quadrants. There is no bulge at this time. No obvious hernia at this time. No masses. No distended bladder. No signs of obstruction. He is moving all 4 extremities. Calves are nontender. Back exam nontender. Neurologically is awake and alert. Test Results: None Emergency Department Course and Treatment: I had a long discussion with the patient in a male that was in the room with him. I explained to him that this really is not an acute emergency department problem. He has had this for nearly 1-1/2-2 years. He is followed up with a number of surgeons. They need to decide if there is a going to remove the mesh and do further surgery or not and at this time it seems like no one is willing to do that. I explained to him he needs no further testing today in the ER. That the ER would not be removing the mesh. Treatment Plan: Patient received IM Toradol. IM Phenergan. And discharged home. He does have Zofran at home for nausea. Disposition: Discharge Impression: Acute on chronic abdominal pain History of prior inguinal hernia repairs with mesh This note was generated with WiFastation software. It may contain incorrect words, spelling, and punctuation that were not noted in review of the chart prior to signing ED Disposition - Plan for ED Patient: Chief Complaint: Abd Pain Referrals: Care Physician,No Primary [Primary Care Provider] - What to do if you have Problems For any increased pain, shortness of breath, bleeding, nausea or vomiting, chest pain, or any unexpected problems, contact your Primary Care Provider. Call [facility] ([phone]) or report to the closest Emergency Room. Call 911 if necessary. 11/29/17 1534 <Electronically signed by Javi Cuellar MD> Date Javi Cuellar MD Cosigner Signature (If Indicated): Date CC: No Primary Care Physician DISCHARGE INSTRUCTION Observed: 11/29/2017 Status: F Source: [place] 3:34 PM [facility] REPOSITORY [facility] Medical Records Department [address] [place] [address] Discharge Instruction 11/29/17 1244 MR#: [id number] Acct: [id number] Name: OLIVER CUNNINGHAM Rep #: [id number] : 1960 57 From: Javi Cuellar MD PCP: Care Physician, No Primary Status: DEP ER ED Disposition - Plan for ED Patient: Disposition: Home or Assisted Living Chief Complaint: Abd Pain Instructions: ED Abdominal Pain Unkn Cause Referrals: Verito Ceron MD [STAFF PHYSICIAN] - 1-2 Weeks What to do if you have Problems For any increased pain, shortness of breath, bleeding, nausea or vomiting, chest pain, or any unexpected problems, contact your Primary Care Provider. Call [facility] ([phone]) or report to the closest Emergency Room. Call 911 if necessary. 11/29/17 1531 <Electronically signed by Javi Cuellar MD> Date Javi Cuellar MD Cosigner Signature (If Indicated): Date CC: No Primary Care Physician CR ABDOMEN SERIES W/ Observed: 11/29/2017 Status: F Source: [facility] CHEST 1 VIEW 3:30 PM SYSTEM REPOSITORY Patient Name: OLIVER CUNNINGHAM Diagnostic Radiology Exam Date/Time 11/29/2017 15:08:33 EDT Exam CR Abdomen Series w/ Chest 1 View Ordering Physician VINNY SHEPPARD AMY L Accession Number [id number] CPT4 Codes 40073 () Reason For Exam Abd Pain Report ABDOMINAL SERIES: CLINICAL INDICATION: Abdominal pain CHEST: TECHNIQUE: AP COMPARISON: CT from 09/26/2017 FINDINGS: The cardiac and mediastinal silhouettes are unremarkable. The lungs demonstrate no infiltrate or area of atelectasis. The costophrenic angles are sharp. The osseous structures are unremarkable. IMPRESSION: Normal chest. ABDOMEN: TECHNIQUE: Supine and upright views of abdomen and pelvis COMPARISON: CT from 09/26/2017 FINDINGS: The bowel gas pattern is normal. No pneumoperitoneum or air- fluid levels. Cholecystectomy clips are seen. No abnormal soft tissue calcifications are noted. The osseous structures are unremarkable. IMPRESSION: No ileus, obstruction or free air. Report Dictated on Workstation: [facility] Final Dictating Physician: MD GRIJALVA NICHOLAS Signed Date and Time: 11/29/2017 3:30 pm Signed by: MD GRIJALVA NICHOLAS Transcribed Date and Time: 11/29/2017 3:31 COMP METABOLIC PANEL Collected: 11/29/2017 Status: F Source: [facility] 3:12 PM SYSTEM REPOSITORY TYPE CODE TESTS RESULT OUT OF RANGE REFERENCE UNITS LAB NA3 137-145 mmol/L Sodium Normal 139 LAB K3 3.5-5.1 mmol/L Normal Potassium 3.9 LAB CL3 98-107 mmol/L Chloride Normal 103 LAB CO23 22-30 mmol/L High Carbon Dioxide 31 LAB ANIN3 NA Anion Gap 6 LAB GLUC3 70-100 mg/dL High Glucose 115 LAB BUN3 7-20 mg/dL Low Urea Nitrogen 6 LAB CRET3 0.52-1.25 mg/dL Normal Creatinine 0.70 LAB GF3BR >60 mL/min eGFR > 60.0 LAB GF3WR >60 mL/min eGFR OTHER > 60.0 Result Comment: Source- MDRD equation with creatinine calibration to IDMS(NKDEP) eGFR not recommended for drug dose adjustment LAB CA3 8.4-10.4 mg/dL Calcium Normal 9.2 LAB ALB3 3.5-5.0 g/dL Albumin, Serum Normal 4.4 LAB TP3 6.3-8.2 g/dL Total Protein Normal 7.2 LAB BILT3 0.2-1.3 mg/dL Normal Bilirubin,Total 0.4 LAB ALKP3 38-126 U/L Alkaline Normal Phosphatase 74 LAB ALT3 13-69 U/L ALT (SGPT) Normal 39 LAB AST3 15-46 U/L AST (SGOT) Normal 22 Performed By: #### CMP3, LIPA4, TROPN, HEMDF #### [facility] [address] [place] [address] LIPASE Collected: 11/29/2017 Status: F Source: [facility] 3:12 PM SYSTEM REPOSITORY TYPE CODE TESTS RESULT OUT OF RANGE REFERENCE UNITS LAB LIPA4 23-300 U/L Normal Lipase 94 Performed By: #### CMP3, LIPA4, TROPN, HEMDF #### [facility] [address] [place] [address] TROPONIN I Collected: 11/29/2017 Status: F Source: [facility] 3:12 PM SYSTEM REPOSITORY TYPE CODE TESTS RESULT OUT OF RANGE REFERENCE UNITS LAB TROP4 0.000-0.034 ng/mL Normal Troponin I < 0.012 Result Comment: 0.046 - 0.400 = Indeterminate > 0.400 = Consider Myocardial Injury Performed By: #### CMP3, LIPA4, TROPN, HEMDF #### [facility] [address] [place] [address] HEMOGRAM W/ AUTODIFF Collected: 11/29/2017 Status: F Source: [facility] 3:12 PM SYSTEM REPOSITORY TYPE CODE TESTS RESULT OUT OF REFERENCE UNITS RANGE LAB IWBC 3.6-10.7 10*3/uL WBC Normal 9.2 LAB RBC 4.40-5.90 10*6/uL RBC Normal 4.92 LAB HGB 13.0-18.0 g/dL Hemoglobin Normal 15.8 LAB HCT 40.0-52.0 % Hematocrit Normal 47.1 LAB MCV 80.0-98.0 fL MCV Normal 95.7 LAB MCH 26.0-34.0 pg MCH Normal 32.2 LAB MCHC 32.0-36.0 % MCHC Normal 33.7 LAB RDW 11.5-14.5 % RDW Normal 14.4 LAB PLT 140-440 10*3/uL Platelet Normal 241 LAB MPV 7.4-10.4 fL MPV Normal 7.5 LAB GRAN% 40.0-80.0 % Granulocytes Normal 67.2 LAB LYMP% 20.0-40.0 % Lymphocytes Normal 24.0 LAB MONO% 2.0-10.0 % Monocytes Normal 7.7 LAB EOS% 1.0-6.0 % Low Eosinophils 0.5 LAB BAS% 0.0-2.0 % Basophils Normal 0.6 LAB ANC 1.8-7.0 10*3/uL Abs Normal Neutrophile Cnt 6.2 LAB ALC 1.0-4.3 10*3/uL Abs Lymph Cnt Normal 2.2 LAB AMC 0.0-0.8 10*3/uL Abs Monocyte Normal Cnt 0.7 LAB AEC 0.0-0.5 10*3/uL Abs Eosin Cnt Normal 0.0 LAB ABC 0.0-0.2 10*3/uL Abs Baso Cnt Normal 0.1 Performed By: #### CMP3, LIPA4, TROPN, HEMDF #### [facility] [address] [place] [address] TROPONIN I Collected: 11/25/2017 Status: F Source: [facility] 4:51 AM [facility] REPOSITORY Order Comment: [place]: M TYPE CODE TESTS RESULT OUT OF RANGE REFERENCE UNITS LAB L550.11382 0.000-0.045 NG/ML Normal TROPONIN I Less than 0.015 Performed By: #### L550.29141 #### [facility] [address] [place] [address] UR DRUG ABUSE Collected: 11/24/2017 Status: F Source: [facility] 10:35 PM [facility] REPOSITORY Order Comment: [place]: M TYPE CODE TESTS RESULT OUT OF RANGE REFERENCE UNITS LAB L600.10516 Djdizx=214 Normal UR DAPHNEY NEGATIVE LAB L600.20892 Cutoff=50 Normal UR JENNIFER/THC NEGATIVE LAB L600.93967 Dpzgoa=9845 Normal UR AMPH NEGATIVE LAB L600.51067 Rxixzg=912 Normal UR [place] NEGATIVE LAB L600.42308 Pdkerk=303 Normal UR NAOMI NEGATIVE LAB L600.97885 Cutoff=25 Normal UR PCP NEGATIVE LAB L600.41565 Rwvuoq=042 Normal UR OPIAT NEGATIVE LAB L600.09571 Normal DRAB COMMENT Result Comment: Urine Drugs of Abuse results are qualitative, providing a preliminary analytical result. A positive result for an assay should be confirmed by another nonimmunological, reference method. A negative result indicates that the assay material is either not present, or present at levels below the cutoff threshold for the analytical method range (AMR) validation. Performed By: #### L600.38505 #### [facility] [address] [place] [address] TROPONIN I Collected: 11/24/2017 Status: F Source: [facility] 10:26 PM [facility] REPOSITORY Order Comment: [place]: M TYPE CODE TESTS RESULT OUT OF RANGE REFERENCE UNITS LAB L550.43930 0.000-0.045 NG/ML Normal TROPONIN I Less than 0.015 Performed By: #### L550.28999 #### [facility] [address] [place] [id number] PROG IMS Observed: 11/24/2017 Status: UNK Source: [facility] 8:35 PM [facility] Patient Name: OLIVER CUNNINGHAM [address] Date of : [address] [place] [address] Unit Number: [id number] Progress Note-Hospitalist Patient Status: ADM IN Attending Doctor: Ruben Bernard MD Service Date: 11/24/172034 Chief Complaint Chief Complaint Chest pain Subjective S: (2 ROS minimum) This patient continues to complain of atypical pain begins in the flanks radiates around of the abdomen and to the chest. Troponins are negative Patient is awaiting stress test; scheduled for a 2 day NM SPECT MIBI test, part 1 completed at 1753h today. Information his past cardiac workup has been requested from [facility] in [place], none received yet. Objective (ROS) Nursing Vitals Vital Signs (Last) Result Date Time Pulse Ox 96 11/24 180 B/P 141/90 11/24 180 O2 Delivery ROOM AIR 11/24 180 Temp 98.2 11/24 180 Pulse 88 11/24 1807 Resp 16 11/24 1807 Physical Exam Physical Examination Notes Gen. dischevelled, no acute distress] HEENT: Normocephalic, mucous membranes are moist, no thrush Neck: Supple, no JVD thyromegaly or mass Chest: No use of accessory muscles, unlabored respirations Abdomen: Soft, nondistended Extremities: No clubbing cyanosis or edema Skin: Warm and well-perfused, no lesions Neuro: Grossly nonfocal, alert and oriented. Diagnostic Data: Lab 24hr (CBC/BMP [facility]) 11/24/17 1649: Troponin I Less than 0.015 11/24/17 0857: Troponin I Less than 0.015 11/24/17 0857: [Embedded Image Not Available] Anion Gap 8, Est GFR ( Amer) Greater than 60, Est GFR (Non-Af Amer) Greater than 60 , BUN/Creatinine Ratio 16, Glucose 120 H, Total Calcium 8.4 L, RBC 4.40 L, MCV 93.6, MCHC 34.0, RDW 13.5, MPV 9.1 L, Immature Gran % (Auto) 0.5, Abs Immat Gran (auto) 0.00, Seg Neutrophils % 56.1, Lymphocytes % 29.7, Monocytes % 11.7 H, Eosinophils % 1.3, Basophils % 0.7, Neutrophils # 3.40, Lymphocytes # 1.80, Monocytes # 0.70, Eosinophils # 0.10, Basophils # 0.00, Nucleated RBCs 0.0 Assessment and Plan Conclusion 1. Nicotine dependence On Sat 2:30p Nov 23, 2017 JERMAN RIVAS wrote Smoking cessation discussed, he declined nicotine patches at this time 2. Atypical chest pain Awaiting MIBI test results, 2 day protocol On Sat 2:30p Nov 23, 2017 JERMAN RIVAS wrote Cardiac workup underway Troponins are negative He can likely be discharged after his stress test is negative, but may benefit from a catheterization to evaluate his coronary anatomy due to his atypical and recurrent symptoms. We discussed risk reduction today 3. COPD (chronic obstructive pulmonary disease) with chronic bronchitis Stable, no changes On Sat 2:30p Nov 23, 2017 JERMAN RIVAS wrote Continue DuoNeb He is not on regular maintenance inhalers at this time. 4. Recurrent syncope Stay Reason/Anticipated Disch Awaiting Test Results Disclaimer This dictation was created using voice recognition software. Phonetic and/or minor grammatical errors may exist. eSign Date and Time Jerman Rivas MD Verified/Reviewed by 11/24/172046 TROPONIN I Collected: 11/24/2017 Status: F Source: [facility] 4:49 PM [facility] REPOSITORY Order Comment: [place]: M TYPE CODE TESTS RESULT OUT OF RANGE REFERENCE UNITS LAB L550.90951 0.000-0.045 NG/ML Normal TROPONIN I Less than 0.015 Performed By: #### L550.78087 #### [facility] [place] [address] CBC W/DIFF Collected: 11/24/2017 Status: F Source: [facility] 8:57 AM [facility] REPOSITORY Order Comment: [place]: M TYPE CODE TESTS RESULT OUT OF RANGE REFERENCE UNITS LAB L200.21662 4.5-11.0 K/CU MM WBC Normal 6.0 LAB L200.48825 4.50-6.00 M/CU MM Low RBC 4.40 LAB L200.22483 13.5-17.5 G/DL HGB Normal 14.0 LAB L200.21737 41.0-53.0 % HCT Normal 41.2 LAB L200.12377 80.0-99.0 fl MCV Normal 93.6 LAB L200.85438 32.0-36.0 GM/DL MCHC Normal 34.0 LAB L200.30417 11-14.5 RDW Normal 13.5 LAB L200.15695 9.4-12.4 Low MPV 9.1 LAB L200.27933 150-450 K/CU MM PLT Normal 213 LAB L200.97931 45-75 % NEUTROPHILS Normal % 56.1 LAB L200.95544 Less than 2 % IMMATURE Normal GRAN % 0.5 LAB L200.36796 20-40 % LYMPH % Normal 29.7 LAB L200.24742 2-10 % High MONOCYTE % 11.7 LAB L200.18646 0-5 % EOSINOPHIL Normal % 1.3 LAB L200.93801 0-2 % BASOPHIL % Normal 0.7 LAB L200.85354 2.0-8.3 K/CU MM NEUTROPHIL Normal ABS 3.40 LAB L200.77250 Less than 2 K/CU MM IMMATR GRAN Normal ABS 0.00 LAB L200.36138 0.9-4.4 K/CU MM LYMPH ABS Normal 1.80 LAB L200.19234 0.1-1.1 K/CU MM MONO ABS Normal 0.70 LAB L200.41516 0-0.5 K/CU MM EOS ABS Normal 0.10 LAB L200.12581 0-0.2 K/CU MM BASO ABS Normal 0.00 LAB L200.15122 Less than 1 % NRBC Normal 0.0 Performed By: #### L200.20840 #### [facility] [address] [place] [id number] TROPONIN I Collected: 11/24/2017 Status: F Source: [facility] 8:57 AM [facility] REPOSITORY Order Comment: [place]: TYPE CODE TESTS RESULT OUT OF RANGE REFERENCE UNITS LAB L550.39469 0.000-0.045 NG/ML Normal TROPONIN I Less than 0.015 Performed By: #### L550.09971 #### [facility] [address] [place] [address] BMP Collected: 11/24/2017 Status: F Source: [facility] 8:57 AM [facility] REPOSITORY Order Comment: [place]: M TYPE CODE TESTS RESULT OUT OF RANGE REFERENCE UNITS LAB L500.09415 136-145 MMOL/L Normal NA 143 LAB L500.68779 3.5-5.1 MMOL/L Normal K 3.5 LAB L500.69632 98-107 MMOL/L Normal CL 107 LAB L500.87755 21-32 MMOL/L Normal CO2 28 LAB L500.03555 5-16 MMOL/L Normal AGAP 8 LAB L500.55891 70-100 MG/DL High GLU 120 Result Comment: 70-100- Normal Fasting; 100-125 Impaired Fasting; greater than 126 on more than one result- Diabetes. ADA guidelines. Results may be falsely elevated after the administration of Sulfapyridine. Results may be falsely depressed after the administration of Sulfasalazine. LAB L500.34476 7-26 MG/DL Normal BUN 11 LAB L500.05415 0.670-1.170 MG/DL Normal CREAT 0.680 Result Comment: Patients receiving either N-Acetylcysteine (NAC) or Metamizole prior to venipuncture, may have falsely depressed results. LAB L500.52561 15-24 Normal BUN/CREA 16 LAB L500.02865 8.5-10.1 MG/DL Low CALCIUM TOTAL 8.4 Performed By: #### L500.31004, L500.31335 #### [facility] [place] [address] GFR EST Collected: 11/24/2017 Status: F Source: [facility] 8:57 AM [facility] REPOSITORY Order Comment: [place]: M TYPE CODE TESTS RESULT OUT OF RANGE REFERENCE UNITS LAB L500.43997 ML/MIN Normal IF non-AFR Greater than AMER 60 LAB L500.58681 ML/MIN Normal IF Greater than AMER 60 Performed By: #### L500.83436, L500.61554 #### [facility] [address] [place] [address] TROPONIN I Collected: 11/23/2017 Status: F Source: [facility] 3:11 PM [facility] REPOSITORY Order Comment: [place]: M TYPE CODE TESTS RESULT OUT OF RANGE REFERENCE UNITS LAB L550.15686 0.000-0.045 NG/ML Normal TROPONIN I Less than 0.015 Performed By: #### L550.73124 #### [facility] [address] [place] [address] PBNP TEST Collected: 11/23/2017 Status: F Source: [facility] 3:11 PM [facility] REPOSITORY Order Comment: [place]: M TYPE CODE TESTS RESULT OUT OF RANGE REFERENCE UNITS LAB L500.78855 0-900 PG/ML Normal PBNP TEST 39 Result Comment: NT-proBNP results of less than 300 pg/ml effectively rules out acute congestive heart failure with 99% negative predictive value. Performed By: #### L500.40044 #### [facility] [address] [place] [address] CONS.CARD Observed: 11/23/2017 Status: UNK Source: [facility] 3:01 PM [facility] Patient Name: OLIVER CUNNINGHAM [address] [facility] Date of : [address] [place] [address] Unit Number: [id number] Consultation-Cardiology Patient Status: ADM IN Attending Doctor: Ruben Bernard MD Service Date: 11/23/17 1501 History of Present Illness Consulted Provider Oliva Ibanez MD Source of Information EMS, Patient Reason for Consult SYNCOPE History of Present Illness 57-YO gentleman who began having midsternal chest pain approximately 7-10 hours prior to his presentation. He states the pain was nonradiating, was somewhat heavy in nature, not associated with nausea, vomiting, or SOB. The patient has had multiple syncopal episodes in the 2 weeks, he was in [place] 3 weeks ago and was seen at a hospital in [place], [place]. He did undergo a stress test at that time. He was treated and released. Prior to his return, he was notified by the hospital that he may need a heart catheterization. For the past 6 months constant lower back and hip pressure that radies upentire abd and chest. Worse with eating. For the past 6 months, he had syncope daily. He feels lightehead daily Smokes 1/3 ppd x 2 weeks. Was 1/2 ppd 6 months. Was 2-3 ppd 41 years. [employer] 30 years. ROS (+) nausea, constipated , eating less x 6 months Past Medical/Surgical Hx Medical Records Reviewed Yes Past Medical History Summary Includes a history of multiple sclerosis, hypertension, tobacco dependency, COPD. Past Surgical History Summary bilateral herniorrhaphy surgery approximately 1 year ago with mesh placement Family/Social History Family History Relation not specified for: FH: CAD (coronary artery disease) FH: multiple sclerosis Social Hx patient has a 36-frhh-rwni history of smoking. Alcohol and substance abuse denied. Advance Directives Advance Directives Full Code Allergies/Home Medications Allergies Coded Allergies: PENICILLINS (Intermediate, 11/22/17) DULOXETINE (From CYMBALTA) (11/22/17) GLATIRAMER (COPOLYMER 1) (From COPAXONE) (11/22/17) HYDROCHLOROTHIAZIDE (11/22/17) MELOXICAM (From MOBIC) (11/22/17) METOCLOPRAMIDE (From REGLAN) (11/22/17) PREGABALIN (From LYRICA) (11/22/17) Uncoded Allergies: TRULACE (Intermediate, 11/22/17) ABAUGIO (11/22/17) Home Medications Albuterol Sulfate (Proair Hfa Inhaler) 8.5 GM HFA.AER.AD 2 PUFF INH BID, Ref 0 ( Reported) Entered as Reported by BENEDICTO WHITMORE on 11/22/172306 Last Action: Held on 11/23/1718 by ADDISON BERNARD Aspirin* (Aspir 81 MG Tab*) 81 MG TABLET. 81 MG PO QDAYWM, Ref 0 (Reported) Entered as Reported by BENEDICTO WHITMORE on 11/22/172305 Last Action: Held on 11/23/17 0020 by ADDISON BERNARD LORazepam* (Ativan 0.5MG Tab*) 0.5 MG TABLET 0.5 MG PO BID, Ref 0 (Reported) Entered as Reported by BENEDICTO WHITMORE on 11/22/172305 Last Action: Held on 11/23/1718 by ADDISON BERNARD Mirtazapine* (Remeron 30MG Tab*) 30 MG TABLET 30 MG PO QHS, Ref 0 (Reported) Entered as Reported by BENEDICTO WHITMORE on 11/22/172305 Last Action: Continued on 11/23/17 0020 by ADDISON BERNARD [place]-3 Fatty Acids/Fish Oil* (Fish Oil 1,000 MG Softgel*) 1 EACH CAPSULE 1 CAP PO QDAY, Ref 0 (Reported) Entered as Reported by BENEDICTO WHITMORE on 11/22/172306 Last Action: Held on 11/23/17 0019 by ADDISNO BERNARD Inpatient Medications Medications Current Sig/Jethro Start time Last Medication Dose Route Stop Time Status Admin Acetaminophen 650 MG Q6HPRN PRN 11/220 AC 11/23 (TYLENOL TAB) PO 1331 Albuterol/Ipratropium 3 ML QIDRT 11/23 0830 AC 11/23 (DUONEB 0.5-3 MG/3 INH 1108 ML INH.NEB) Aspirin 325 MG QDAYWM 11/23 08 AC 11/23 (ASPIRIN TAB) PO 0945 Atorvastatin Calcium 40 MG QHS 11/22 2200 AC 11/23 (LIPITOR TAB) PO 0114 Heparin Sodium 5,000 UNIT Q12H 11/23 0900 AC 11/23 (Porcine) SC 0945 (HEPARIN D.SYR) Magnesium Hydroxide 30 ML QDAYPRN PRN 11/22 2200 AC (MILK OF MAGNESIA PO ORAL LIQ) Mirtazapine 30 MG QHS 11/23 2200 AC (REMERON TAB) PO Nitroglycerin 0.4 MG Q5MPRN PRN 11/22 2200 AC (NITROSTAT 0.4MG SL TAB.SL) Ondansetron HCl 4 MG Q4HPRN PRN 11/22 2200 AC (ZOFRAN VIAL) IV Senna/Docusate Sodium 1 UDTAB QDAYPRN PRN 11/22 2200 AC (SENOKOT-S TAB) PO Review of Systems ROS: Other SYSTEMS REVIEWED X10, NEGATIVE EXCEPT NOTED. All other systems reviewed andnot significant to current visit Yes Physical Exam Vital Signs Vital Signs (Last) Result Date Time Pulse Ox 95 11/23 1351 B/P 132/72 11/23 1351 Temp 98.2 11/23 1351 Pulse 93 11/23 1351 Resp 18 11/23 1351 Vital Signs (24hr) Date Temp Pulse Resp B/P B/P Mean Pulse Ox FiO2 11/22-11/23 97.8-98.2 73-93 18 115-141/72-91 93-97 Physical Examination Summary General: appears well, Normal weight HEENT: Supple. No JVD.eeerately diminished bilaterally, with mild wheezes Abd: Soft. Nontender. Vasc: No carotid bruit. Normal radial pulses. Ext: No leg edema or clubbing. Skin: Warm. No rash. Neuro: Alert. Appropriate. Face symmentric. No focal deficit. Psych: Calm. Normal affect. Lab: Laboratory Tests (24hr) 11/22 Chemistry Sodium (136 - 145 MMOL/L) 140 Potassium (3.5 - 5.1 MMOL/L) 3.4 L Chloride (98 - 107 MMOL/L) 107 Carbon Dioxide (21 - 32 MMOL/L) 23 Anion Gap (5 - 16 MMOL/L) 10 BUN (7 - 26 MG/DL) 14 Creatinine (0.670 - 1.170 MG/DL) 0.579 L Est GFR ( Amer) (ML/MIN) Greater than 60 Est GFR (Non-Af Amer) (ML/MIN) Greater than 60 BUN/Creatinine Ratio (15 - 24) 24 Glucose (70 - 100 MG/DL) 98 Total Calcium (8.5 - 10.1 MG/DL) 8.4 L POC Troponin I (0.0 - 0.06 NG/ML) 0.00 Hematology WBC (4.5 - 11.0 K/CU MM) 12.8 H RBC (4.50 - 6.00 M/CU MM) 4.52 Hgb (13.5 - 17.5 G/DL) 14.3 Hct (41.0 - 53.0 %) 42.4 MCV (80.0 - 99.0 fl) 93.8 MCHC (32.0 - 36.0 GM/DL) 33.7 RDW (11 - 14.5) 14.0 Plt Count (150 - 450 K/CU MM) 237 MPV (9.4 - 12.4) 8.9 L Immature Gran % (Auto) (Less than 2 %) 0.4 Abs Immat Gran (auto) (Less than 2 K/CU MM) 0.10 Seg Neutrophils % (45 - 75 %) 64.9 Lymphocytes % (20 - 40 %) 24.0 Monocytes % (2 - 10 %) 9.9 Eosinophils % (0 - 5 %) 0.3 Basophils % (0 - 2 %) 0.5 Neutrophils # (2.0 - 8.3 K/CU MM) 8.30 Lymphocytes # (0.9 - 4.4 K/CU MM) 3.10 Monocytes # (0.1 - 1.1 K/CU MM) 1.30 H Eosinophils # (0 - 0.5 K/CU MM) 0.00 Basophils # (0 - 0.2 K/CU MM) 0.10 Nucleated RBCs (Less than 1 %) 0.0 EKG: nonspecific Ts Telemetry EKG: SINUS Conclusion / Plan Conclusion/Plan 1. Chest pain noncardiac by history cycle troponins, check BNPT, get records from [place] 2. Recurrent syncope hx c/w orthostattoc hypotension rec increase salt/fluid and start comp socks Obtain records from [facility] w/u. Disclaimer This dictation was created using voice recognition software. Phonetic and/or minor grammatical errors may exist. eSign Date and Time Chinyere Terrazas CNP, Simonette Carol MD Verified/Reviewed by 11/25/17 1049 PROG IMS Observed: 11/23/2017 Status: UNK Source: [facility] 2:19 PM [facility] Patient Name: OLIVER CUNNINGHAM [address] [place] Date of : [address] [address] Unit Number: [id number] Progress Note-Hospitalist Patient Status: ADM IN Attending Doctor: Ruben Bernard MD Service Date: 11/23/17 1414 Chief Complaint Chief Complaint Chest pain Subjective S: (2 ROS minimum) Patient continues to complain of constant substernal chest discomfort, without nausea vomiting diarrhea diaphoresis or radiation. He stated that the chest pain begins in his abdomen and moves up to his chest, and has been present ever since he had bilateral herniorrhaphies years ago. He smokes a third pack per day, uses ProAir inhalers as needed, has chronic wheezing and coughing consistent with his COPD. The symptoms have not changed. He is awaiting his cardiac workup and consultation. He is otherwise comfortable and hemodynamically stable with his atypical chest pain pattern. Objective (ROS) Nursing Vitals Vital Signs (Last) Result Date Time Pulse Ox 95 11/23 1351 B/P 132/72 11/23 1351 Temp 98.2 11/23 1351 Pulse 93 11/23 1351 Resp 18 11/23 1351 Physical Exam Physical Examination Notes Gen.: [Well-developed well-nourished, no acute distress] HEENT: Normocephalic, atraumatic, extraocular was intact, pupils are reactive and equal, mucous membranes are moist, no thrush Neck: Supple, no JVD thyromegaly or mass Chest: No use of accessory muscles, unlabored respirations, symmetrical, clear bilaterally to auscultation except for a few rhonchi and mildly diminished breath sounds Cardiac: Normal S1-S2, no murmurs rubs or gallops Abdomen: Soft, nontender, no organomegaly or masses : Unremarkable and normal genitalia, the bilateral inguinal herniorrhaphy sites are well -healed without erythema distention mass or edema. Extremities: No clubbing cyanosis or edema Skin: Warm and well-perfused, no lesions Neuro: Grossly nonfocal, alert and oriented. Musculoskeletal: No obvious fractures or dislocation. Diagnostic Data: Lab 24hr (CBC/BMP [facility]) 11/22/171943: POC Troponin I 0.00 11/22/171939: [Embedded Image Not Available] Anion Gap 10, Est GFR ( Amer) Greater than 60, Est GFR (Non-Af Amer) Greater than 60, BUN/Creatinine Ratio 24, Glucose 98, Total Calcium 8.4 L, RBC 4.52, MCV 93.8, MCHC 33.7, RDW 14.0, MPV 8.9 L, Immature Gran % (Auto) 0.4, Abs Immat Gran (auto) 0.10, Seg Neutrophils % 64.9, Lymphocytes % 24.0, Monocytes % 9.9, Eosinophils % 0.3, Basophils % 0.5, Neutrophils # 8.30, Lymphocytes # 3.10, Monocytes # 1.30 H, Eosinophils # 0.00, Basophils # 0.10, Nucleated RBCs 0.0 Allergies Allergy Severity Reaction Updated Coded PENICILLINS Intermediate 11/22/17 DULOXETINE (From Unknown 11/22/17 CYMBALTA) GLATIRAMER (COPOLYMER Unknown 11/22/17 1) (From COPAXONE) HYDROCHLOROTHIAZIDE Unknown 11/22/17 MELOXICAM (From MOBIC) Unknown 11/22/17 METOCLOPRAMIDE (From Unknown 11/22/17 REGLAN) PREGABALIN (From LYRICA) Unknown 11/22/17 Uncoded TRULACE Intermediate 11/22/17 ABAUGIO Unknown 11/22/17 Medications Current Sig/Jethro Start time Last Medication Dose Route Stop Time Status Admin Acetaminophen 650 MG Q6HPRN PRN 11/22 2200 AC 11/23 (TYLENOL TAB) PO 1331 Albuterol/Ipratropium 3 ML QIDRT 11/23 0830 AC 11/23 (DUONEB 0.5-3 MG/3 INH 1108 ML INH.NEB) Aspirin 325 MG QDAYWM 11/23 08 AC 11/23 (ASPIRIN TAB) PO 0945 Atorvastatin Calcium 40 MG QHS 11/22 2200 AC 11/23 (LIPITOR TAB) PO 0114 Heparin Sodium 5,000 UNIT Q12H 11/23 0900 AC 11/23 (Porcine) SC 0945 (HEPARIN D.SYR) Hydrocodone Bitart/ 1 EACH Q6HPRN PRN 11/22 2199 AC Acetaminophen PO (NORCO 5-325 TAB) Magnesium Hydroxide 30 ML QDAYPRN PRN 11/220 AC (MILK OF MAGNESIA PO ORAL LIQ) Mirtazapine 30 MG QHS 11/23 2200 AC (REMERON TAB) PO Nitroglycerin 0.4 MG Q5MPRN PRN 11/22 2199 AC (NITROSTAT 0.4MG SL TAB.SL) Ondansetron HCl 4 MG Q4HPRN PRN 11/22 2199 AC (ZOFRAN VIAL) IV Senna/Docusate Sodium 1 UDTAB QDAYPRN PRN 11/220 AC (SENOKOT-S TAB) PO LAB-[facility]al [facility](72hr) 11/22 1940 Chemistry Sodium (136 - 145 MMOL/L) 140 Potassium (3.5 - 5.1 MMOL/L) 3.4 Chloride (98 - 107 MMOL/L) 107 Carbon Dioxide (21 - 32 MMOL/L) 23 BUN (7 - 26 MG/DL) 14 Creatinine (0.670 - 1.170 MG/DL) 0.579 Procedure Date and Time: 11/22/171932 Test Reason : STAT Blood Pressure : / mmHG Vent. Rate : 100 BPM Atrial Rate : 100 BPM P-R Int : 124 ms QRS Dur : 092 ms QT Int : 342 ms P-R-T Axes : 078 086 051 degrees QTc Int : 441 ms Normal sinus rhythm Non-specific ST abnormality Abnormal ECG When compared with ECG of 29-OCT-2017 10:34, No significant change was found Assessment and Plan Conclusion 1. Nicotine dependence Smoking cessation discussed, he declined nicotine patches at this time 2. Atypical chest pain Cardiac workup underway Troponins are negative He can likely be discharged after his stress test is negative, but may benefit from a catheterization to evaluate his coronary anatomy due to his atypical and recurrent symptoms. We discussed risk reduction today 3. COPD (chronic obstructive pulmonary disease) with chronic bronchitis Continue DuoNeb He is not on regular maintenance inhalers at this time. Disclaimer This dictation was created using voice recognition software. Phonetic and/or minor grammatical errors may exist. eSign Date and Time Jerman Rivas MD Verified/Reviewed by 11/23/17 1430 ED DOC Observed: 11/22/2017 Status: UNK Source: [facility] 11:02 [facility] REPOSITORY This is a preliminary report only, as the practitioner review and authentication has not occurred. ED DOC Observed: 11/22/2017 Status: UNK Source: [facility] 11:02 [facility] REPOSITORY PHYSICIAN ASSESSMENT RECORDS : FlexChartData Event Time: 11/22/2017 20:55 Status: Signed [facility] Oliver Beatrizcam [[id number]] Attending Physician 57 / M / 1960 Chart (V2b) Chart created at 11/22/2017 20:44 by Kamila Diaz Chart closed at 11/22/2017 21:31 Entry in Emergency Department at 11/22/2017 19:29 Patient Name: Oliver Cunningham Record Number: [id number] Date: 11/22/2017 20:44 Entered Department at: 11/22/2017 19:29 Patient Seen at: 11/22/2017 20:17 Decision to Admit at: 11/22/2017 21:31 Historian: Patient PCP: *None,. Chief Complaint:chest pain/ shortness of breath Triage Note reviewed and Initial Vital Signs reviewed. Temperature: 97.7 F (36.5 C). Pulse: 100. Respiratory Rate: 20. Blood-pressure: 166/93. Oxygen Saturation: 96% room air. History of Present Illness: 57-Year-old male presents for evaluation. He states that for the last week or so he has been having some diffuse burning pain. Is in his chest into his back and down his legs. To me he states that he feels like he has an artery clog somewhere is how he described it. He also been having syncopal episodes. This happens sometimes when he is up and walking. He wakes up and sweats as well. Denies any specific localized chest pain. He does have a history of MS [facility] PATIENT NAME: OLIVER CUNNINGHAM [address] [address] 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 He said he had an MRI done recently that showed no changes. He did state though that his MS specialist at [facility] is than left. He also recently was in [place] to be evaluated for some sort of mesh removal of his hernias that are in his legs. They did not do the surgery but they did do a stress test and apparently apparently may have an abnormal. He said he get a call on his way home from [place] that the stress test may have been abnormal. He does not have a history of coronary artery disease although he does smoke and he has significant family history of coronary artery disease. Review of Systems. All other systems reviewed and negative.. Past History, Medications, Allergies, Social History and Family History reviewed in nurses note. Past Medical History: History of: COPD. MS Medications: Reviewed RN Note. Allergies: Reviewed RN Note PCN(Rash), mobic(Rash), lyrica(agitation of nerves), cymbalta(palpitations), abaugio(plugs arteries), copaxone(Rash), hydrochlorothiazide(syncope), Reglan(chest pain), trulance(Unknown) Social History: Reviewed RN Note. Tobacco: Smoking, 0.5 packs per day. Family History: Reviewed RN Note Physical Examination: General: Alert Neck: Supple Respiratory: No Resp Distress and Normal Breath Sounds Cardio-Vascular: RRR Abdomen: Non-tender and Soft Extremity: No edema Neurological: Alert, Oriented X3 and No Gross Weakness Skin: Warm and Dry Psychological: Mood/Affect Normal BMP, information as of 11/22/2017, 7:40 pm 140 --------+--------+--------andlt; 98 Anion Gap = 10 [facility] PATIENT NAME: OLIVER CUNNINGHAM [address] [address] [place] MEDICAL REC #: [id number] [place] [address] EMERGENCY DEPARTMENT CHART EMERGENCY DEPARTMENT PHYSICIAN 3.4* BUN/CREA: 24; CALCIUM TOTAL: 8.4 Mg/Dl CBC W/DIFF, information as of 11/22/2017, 7:32 pm 93.8 / 14.3 / 12.8* andgt;------andlt; 237 / 42.4 / N:64.9 BASO ABS: 0.10 K/Cu Mm; BASOPHIL %: 0.5 %; EOS ABS: 0.00 K/Cu Mm; EOSINOPHIL %: 0.3 %; IMMATR GRAN ABS: 0.10 K/Cu Mm; IMMATURE GRAN %: 0.4 %; LYMPH %: 24.0 %; LYMPH ABS: 3.10 K/Cu Mm; MCHC: 33.7 Gm/Dl; MONO ABS: 1.30 K/Cu Mm; MONOCYTE %: 9.9 %; MPV: 8.9; NEUTROPHIL ABS: 8.30 K/Cu Mm; NRBC: 0.0 %; RBC: 4.52 M/Cu Mm; RDW: 14.0 TROPONIN I POC, information as of 11/22/2017, 7:44 pm POC Trop-I: 0.00 Cardiogram: Interpreted by me. Rate: 100 bpm. Rate NormalRhythm Sinus RhythmAxis NormalIntervals NormalQRS NormalST/T Non-Specific ST Changes Interpretation: Normal sinus rhythm. Some nonspecific ST abnormalities. Overall this is unchanged in appearance from October 29, 2017 although these nonspecific changes were not interpreted as present previously Comparison: Unchanged from October 29, 2017. Monitor / Rhythm Strip: NSR Medical Decision Making 57-Year-old male presents with the above complaints. Not sure with the make a diffuse burning sensation that he has throughout his body. I am not sure what artery clogging her he is referring to. He does have equal pulses in his legs. Does not seem consistent with a dissection. I am concerned that he describes these recurrent syncopal episodes and possibly abnormal stress test although he does not have priscilla discernible chest pain. He sinus rhythm on a coupler. His EKG showed no specific EKG findings significant for us ischemia. His troponin was negative. Chemistries were obtained and this was pretty unremarkable. Potassium minimally decreased at 3.4 which he did not think will be clinically significant. [facility] PATIENT NAME: OLIVER CUNNINGHAM [address] [facility] [address] [place] MEDICAL REC #: [id number] [place] [address] EMERGENCY DEPARTMENT CHART EMERGENCY DEPARTMENT PHYSICIAN He is a nonspecific leukocytosis. Therefore with these consolation of symptoms I do recommend he be admitted particularly the syncope. This is not usual for him. I am not sure if this diffuse burning sensation would be MS related or not. I discussed this plan with him and he is agreeable. I discussed the case with Dr. Bernard and he is agreeable. Clinical Impression: 1. Recurrent syncope 2. Diffuse burning sensation 3. History of MS 4. Abnormal stress test per patient history MSE completed. I was the primary ED attending.. 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 [employer] Patient: OLIVER CUNNINGHAM Sex: M : 1960 Age: 57 yr Account No: [id number] Registration Date: 11/22/2017 Address: [address] [facility] [facility] Address: [place] [address] REGISTRATION ED Number: [id number] [facility] PATIENT NAME: OLIVER CUNNINGHAM [address] MEDICAL REC #: [id number] [place] [address] EMERGENCY DEPARTMENT CHART EMERGENCY DEPARTMENT PHYSICIAN Marital Status: D Financial Class: MPPS TRIAGE Priority: 3 - Urgent Complaint: Chest Pain Stated Complaint: chest pain/ shortness of breath Arrival Date: 11/22/2017 19:29 Triage Date: 11/22/2017 19:30 Mode of Arrival: *Privately Owned Vehicle WC: N Language: Cypriot Transport: Ambulatory/Walk In BED C29 In: 11/22/2017 20:07:32 11/22/2017 20:07:32 TP C29 (Removed From) Out: 11/22/2017 23:02:07 11/22/2017 23:02:07 NSB PROVIDERS MD Kamila Diaz Provider Contact: 11/22/2017 20:17:05 TCM End: MIRIAM JI Provider Contact: 11/22/2017 20:47:10 NSB End: MIRIAM JI Provider Contact: 11/22/2017 20:47:56 NSB End: TRIAGE HISTORY ALLERGIES [facility] PATIENT NAME: NELIDAWNACAMOLIVER [address] [facility] [facility] [address] MEDICAL REC #: [id number] [place] [address] EMERGENCY DEPARTMENT CHART EMERGENCY DEPARTMENT PHYSICIAN Allergic To: PCN - Rash 11/22/2017 19:41 JBF Allergic To: mobic - Rash 11/22/2017 19:41 JBF Allergic To: lyrica - agitation of nerves 11/22/2017 19:41 JBF Allergic To: cymbalta - palpitations 11/22/2017 19:41 JBF Allergic To: abaugio - plugs arteries 11/22/2017 19:41 JBF Allergic To: copaxone - Rash 11/22/2017 19:41 JBF Allergic To: hydrochlorothiazide - syncope 11/22/2017 19:41 JBF Allergic To: Reglan - chest pain 11/22/2017 19:41 JBF Allergic To: trulance - Unknown 11/22/2017 19:41 JBF CURRENT MEDS Name: LORAZEPAM 0.5MG TABLET - PO BID 11/22/2017 20:47 NSB Name: MIRTAZAPINE 30MG TABLET - PO HS 11/22/2017 20:47 NSB Name: ASPIR-LOW 81MG TABLET - PO 11/22/2017 20:47 NSB Name: VENTOLIN HFA 90MCG/ACTUATION INHALATION AEROSOL - INH 11/22/2017 20:47 NSB Name: FISH OIL PO 11/22/2017 20:47 NSB Name: PROBIOTICS PO 11/22/2017 20:47 NSB ILLNESS Illness: Emphysema 11/22/2017 19:41 JBF Illness: scleraderma 11/22/2017 19:41 JBF Illness: multiple sclerosis 11/22/2017 19:41 JBF PAST SURGERY HIST [facility] PATIENT NAME: OLIVER CUNNINGHAM [address] [facility] [address] [place] MEDICAL REC #: [id number] [place] [address] EMERGENCY DEPARTMENT CHART EMERGENCY DEPARTMENT PHYSICIAN Surgery: Hernia Repair 11/22/2017 19:41 JBF Surgery: Cholecystectomy 11/22/2017 19:41 JBF Surgery: lower back 11/22/2017 19:41 JBF Surgery: bilateral shoulder 11/22/2017 19:41 JBF Surgery: Tonsillectomy 11/22/2017 19:41 JBF PAST SOCIAL HIST Social History: Communicates without difficulty 11/22/2017 19:41 JBF Social History: Alcohol - None 11/22/2017 19:41 JBF Social History: Recreational Drugs - None 11/22/2017 19:41 JBF Social History: Smoker-1/2 PPD 11/22/2017 19:41 JBF Social History: Denies Domestic Violence 11/22/2017 19:41 JBF Social History: Denies thoughts of self harm. 11/22/2017 19:41 JBF Social History: Have you traveled in the past month? Where y 11/22/2017 19:41 JBF IMMUNIZATIONS Immunization: Flu Vaccine-no 11/22/2017 19:41 JBF NURSING ASSESSMENT ASSESSMENT NOTES 11/22/2017 20:41 PT C/O BURNING THAT STARTS IN HIS HIPS AND LOWER BACK AND RADIATES UP TO HIS CHEST. PT STATES HE HAS HAD MUTIPLE SYNCOPAL EPISODES THIS WEEK. PT DENIES HITTING HIS HEAD. PT C/O SOB AND A NON-PRODUCTIVE COUGH. PT LUNGS ARE CTA AND DIMINISHED 11/22/2017 20:44 NSB [facility] PATIENT NAME: OLIVER CUNNINGHAM [address] [facility] [facility] [address] [place] MEDICAL REC #: [id number] [place] [address] EMERGENCY DEPARTMENT CHART EMERGENCY DEPARTMENT PHYSICIAN 11/22/2017 22:08 dr bernard was requesting recent stress test done at [facility] ([facility]3] in [place]. called down there and they said medical records cant be reached until 7 am. Miriam rn was notified to tell the floor when report is called. the number for that hospital is [phone] 11/22/2017 22:09 HAP 11/22/2017 22:39 REPORT GIVEN TO LUISA BAILON 11/22/2017 22:39 NSB TREATMENT 11/22/2017 20:43 [place] [address]/22/2017 20:43 HAP 11/22/2017 20:45 Primary DOC Guide - A. 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 Fall Risk Assessment (Age andlt;65) 11/22/2017 20:46 NSB History of Falling in last 3 months? No (0) Confusion or Disorientation? No (0) Intoxicated or Sedated? No (0) Impaired Gait? No (0) Mobility Assist Device Used? No (0) Altered Elimination? No (0) Fall Risk Score 1-2 Points = Low Risk. 3-4 Points = Moderate Risk. 5 or more points = High Risk. 0 Fall Score Greater andgt;= 3? No 11/22/2017 20:45 Primary DOC Guide - D. Psychosocial Assessment 11/22/2017 20:46 NSB [facility] PATIENT NAME: OLIVER CUNNINGHAM [address] [facility] [facility] [address] MEDICAL REC #: [id number] [place] [address] EMERGENCY DEPARTMENT CHART EMERGENCY DEPARTMENT PHYSICIAN Over the Last 2 weeks, how often have you had little interest or pleasure in doing things (0) Not at All Is Psychosocial Assessment Score 3 or more? If score is 3 or more please consult ED Navigator! No Total Psychosocial Assessment Score 0 Over the last 2 weeks, how often have you been feeling down, depressed or hopeless (0) Not at All 11/22/2017 20:45 Primary DOC Guide - E. Family Violence Assessment 11/22/2017 20:46 NSB Within the past year, has anyone ever pushed, shoved, slapped, choked, hit, punched or kicked you: No Within the past year, has anyone ever pressured or forced you to have sexual activities when you did not want to: No Do you feel safe and well cared for: Yes Is there a partner from a previous or current relationship that is making you feel unsafe now: No 11/22/2017 20:46 Physician Call - answered at 11/22/2017 20:46 HAP 11/22/2017 21:02 POC testing results and critical values - POC Troponin 0.00 on ED instrument 11/22/2017 21:03 HAP 11/22/2017 21:19 Physician Call - answered at 1313 11/22/2017 21:19 HAP 11/22/2017 22:28 Admit/Discharge - Pt/Family voices understanding of admit process 11/22/2017 22:30 NSB MEDICATIONS IV IV Fluid: B 11/22/2017 22:27 11/22/2017 22:28 NSB Line #: 1 Rate: ml/hr Location: antecubital fossa right Ndl Gauge: 20 [facility] PATIENT NAME: OLIVER CUNNINGHAM [address] [facility] [facility] [address] MEDICAL REC #: [id number] [place] [address] EMERGENCY DEPARTMENT CHART EMERGENCY DEPARTMENT PHYSICIAN I AND O VITALS VS-ROUTINE Time: 11/22/2017 19:30 11/22/2017 19:31 JBF VS-Pain Time: 11/22/2017 19:30 11/22/2017 19:31 JBF VS-GCS Time: 11/22/2017 19:30 11/22/2017 19:31 JBF VS-HT/WT Time: 11/22/2017 19:30 11/22/2017 19:31 JBF VS-Visual Time: 11/22/2017 19:30 11/22/2017 19:31 JBF VS-FHT Time: 11/22/2017 19:30 11/22/2017 19:31 JBF VS-Notes Time: 11/22/2017 19:30 11/22/2017 19:31 JBF VS-ROUTINE Time: 11/22/2017 19:37 B/P: 166/93 - Left Upper Arm - Lying - Machine Pulse: 100 - Monitor Resp: 20 Sa02: 96 Room Air Temp: 97.70 F - Oral 11/22/2017 19:41 JBF VS-Pain Time: 11/22/2017 19:37 Pain Level: 10 11/22/2017 19:41 JBF VS-GCS Time: 11/22/2017 19:37 Visual: 4 Verbal: 5 Motor: 6 GCS Total: 15 11/22/2017 19:41 JBF VS-HT/WT Time: 11/22/2017 19:37 Ht: 74 in. Stated Weight: 184 lbs Actual 11/22/2017 19:41 JBF VS-Visual Time: 11/22/2017 19:37 11/22/2017 19:41 JBF VS-FHT Time: 11/22/2017 19:37 11/22/2017 19:41 JBF VS-Notes Time: 11/22/2017 19:37 map 125 11/22/2017 19:41 JBF VS-ROUTINE Time: 11/22/2017 22:22 B/P: 154/89 - Left Upper Arm - Lying - Machine Pulse: 81 - Gunstock Spray Unit Adjuster Resp: 25 Sa02: 99 Room Air 11/22/2017 22:23 NSB VS-Pain Time: 11/22/2017 22:22 11/22/2017 22:23 NSB VS-GCS Time: 11/22/2017 22:22 11/22/2017 22:23 NSB VS-HT/WT Time: 11/22/2017 22:22 11/22/2017 22:23 NSB VS-Visual Time: 11/22/2017 22:22 11/22/2017 22:23 NSB VS-FHT Time: 11/22/2017 22:22 11/22/2017 22:23 NSB VS-Notes Time: 11/22/2017 22:22 MAP 114 11/22/2017 22:23 NSB [facility] PATIENT NAME: OLIVER CUNNINGHAM [address] [facility] [address] MEDICAL REC #: [id number] [place] [address] EMERGENCY DEPARTMENT CHART EMERGENCY DEPARTMENT PHYSICIAN ORDERS *Status: Inpatient 11/22/2017 21:34 N/A Ordered: 11/22/2017 21:31 By . Other Reviewed: 11/22/2017 21:34 By . Other AWNING CRAFTSMAN ORDER: GFRP 11/22/2017 20:16 None Ordered: 11/22/2017 20:16 Completed Time: 11/22/2017 20:16 Results Time: 11/22/2017 20:14 AWNING CRAFTSMAN ORDER: POCTROP 11/22/2017 20:03 None Ordered: 11/22/2017 20:03 Completed Time: 11/22/2017 20:03 Results Time: 11/22/2017 20:03 BMP 11/22/2017 20:16 N/A Ordered: 11/22/2017 19:31 By Protocol Completed Time: 11/22/2017 20:16 By Protocol Noted Time: 11/22/2017 19:41 JBF Results Time: 11/22/2017 20:14 CBC with diff 11/22/2017 20:00 N/A Ordered: 11/22/2017 19:31 By Protocol Completed Time: 11/22/2017 20:00 By Protocol Noted Time: 11/22/2017 19:41 JBF Results Time: 11/22/2017 20:00 EKG and most recent EKG 11/22/2017 19:37 N/A Ordered: 11/22/2017 19:31 By Protocol Completed Time: 11/22/2017 19:36 By Protocol Noted Time: 11/22/2017 19:33 JBF POC troponin 11/22/2017 21:02 N/A Ordered: 11/22/2017 19:31 By Protocol Completed Time: 11/22/2017 21:02 By Protocol Noted Time: 11/22/2017 19:41 JBF [facility] PATIENT NAME: OLIVER CUNNINGHAM [address] [facility] [address] MEDICAL REC #: [id number] [place] [address] EMERGENCY DEPARTMENT CHART EMERGENCY DEPARTMENT PHYSICIAN DISCHARGE Diagnosis: Recurrent syncope, Diffuse burning sensation, History of MS 11/22/2017 21:31 Disposition: Time: 11/22/2017 21:31 Discharge Time: 11/22/2017 23:02 Type: *Admission to Floor Condition: Stable for admission/discharge/transfer after emergency evaluation/treatment Category: *NOT APPLICABLE Referral: 11/22/2017 21:31 Admit To: *Bed Type - Telemetry Admit Physician: Addison Bernard PRESCRIPTIONS CHARGES SIGNATURE Kamila MORGAN RN JBFeroz LEUNG STIVEN [facility] MIRIAM JI NSB [facility] PATIENT NAME: OLIVER CUNNINGHAM [address] [facility] [address] [place] MEDICAL REC #: [id number] [place] [address] EMERGENCY DEPARTMENT CHART EMERGENCY DEPARTMENT PHYSICIAN EKG Observed: 11/22/2017 Status: UNK Source: [facility] 9:32 PM [place] REPOSITORY Procedure Date and Time: 11/22/171932 Test Reason : STAT Blood Pressure : / mmHG Vent. Rate : 100 BPM Atrial Rate : 100 BPM P-R Int : 124 ms QRS Dur : 092 ms QT Int : 342 ms P-R-T Axes : 078 086 051 degrees QTc Int : 441 ms Normal sinus rhythm Non-specific ST abnormality Abnormal ECG When compared with ECG of 29-OCT-2017 10:34, No significant change was found Confirmed by CHANO DUVALL A. ([id number]) on 11/23/2017 3:29:40 AM Referred By: Emergency [facility] Confirmed By:Flaco DUVALL M.D.FACC [place]win DDandT: 11/22/17 193 TDandT: [facility] PATIENT NAME: OLIVER CUNNINGHAM [facility] [address] MEDICAL REC #: [id number] [place] [address] ADMIT DATE: 11/22/17 DISCHARGE DATE: ATTENDING PHY: Ruben Bernard MD ELECTROCARDIOGRAM REPORT CLB cc: [facility] PATIENT NAME: OLIVER CUNNINGHAM [facility] [address] MEDICAL REC #: [id number] [place] [address] ADMIT DATE: 11/22/17 DISCHARGE DATE: ATTENDING PHY: Ruben Bernard MD ELECTROCARDIOGRAM REPORT HP Observed: 11/22/2017 Status: UNK Source: [facility] 9:32 PM [facility] REPOSITORY This is a 57-year-old gentleman who apparently began having midsternal chest pain approximately 7-10 hours prior to his presentation. He states the pain was nonradiating, was somewhat heavy in nature, not associated with nausea, vomiting, or shortness of breath. The patient has had multiple syncopal episodes in the 2 weeks prior to his presentation. Apparently, he was in [place] 3 weeks ago and was seen at a hospital in [place], [place]. He did undergo a stress test at that time. He was treated and released. Prior to him returning, he was notified by the hospital that he may need a heart catheterization; however, he did not have it done since he was boarding an airplane to come back to [place]. He currently is being admitted. PAST MEDICAL HISTORY: Includes a history of multiple sclerosis, hypertension, tobacco dependency, COPD. CURRENT MEDICATIONS: Reviewed. Multiple allergies were noted. SOCIAL HISTORY: The patient has a [id number] history of smoking. Alcohol and substance abuse denied. FAMILY HISTORY: Noncontributory. PAST MEDICAL HISTORY: As noted above reveals a history of multiple sclerosis, emphysema, chest pain. The patient has had bilateral herniorrhaphy surgery approximately 1 year ago with mesh placement and does have lower abdominal pain in that area from that surgery. He has a possible history of peripheral arterial disease. REVIEW OF SYSTEMS: The patient denies any history of renal, cardiovascular. Does have a history of multiple sclerosis, emphysema, hypertension, tobacco dependency. Denies any history of blood, skin, or glandular disorders. He denies any history of bleeding disorders, musculoskeletal, or endocrine disorders. He does have a history of multiple sclerosis and emphysema as noted above. PHYSICAL EXAMINATION: General Appearance: A pleasant middle-aged gentleman appearing older than his stated age in no acute distress, alert at the time of examination. Vital Signs: Blood pressure 160/60 with a pulse of 70, temperature afebrile, respiration rate 18 per minute, pulse oximetry 95% on room air. HEENT: The head was normal. Maxillary sinuses and periorbital sinuses appear to be clear. Pharynx is nonerythematous. Neck: Supple. There was no JVD, HJR, or lymphadenopathy. Lungs: Rare crackles at the bases with diminished breath sounds throughout all lung menjivar. There were no wheezes or rhonchi. There were no areas of consolidation. Heart: Rhythm was regular and rapid, S1/S2 heart sounds were distant. There were no extrasystoles, premature systoles, clicks, or rubs. [facility] PATIENT NAME: OLIVER CUNNINGHAM [address] [facility] [address] MEDICAL REC #: [id number] [place] [address] ADMIT DATE: 11/22/17 DISCHARGE DATE: HISTORY and PHYSICAL ATTENDING PHY: Ruben Bernard MD Abdomen: Soft and nontender with normal bowel sounds in all quadrants. There is no subxiphoid, right midepigastric, or right upper quadrant tenderness to palpation. Lower abdominal examination was otherwise unremarkable. Extremities: Range of motion of both upper and lower extremities was symmetrical bilaterally. There were no lateralizing signs. There was no evidence of peripheral edema. Peripheral pulses were diminished, however, palpated in both lower extremities. There were no ecchymoses or petechial lesions noted in either the upper or the lower extremities bilaterally. EKG reveals sinus rhythm with a rate of 75 per minute, slight counterclockwise rotation. There was slightly more slurring of the ST segments in the inferior leads as compared to the previous EKG in October 2017. Otherwise, no evidence of any acute changes. Clinical correlation is required. White blood cell count was 12,800, hemoglobin 14.3, hematocrit 42.4, platelet count 237,000, white cell differential normal. Sodium 140, potassium 3.4, chloride 107, CO2 23, BUN 14, creatinine 0.579. His troponin-I was 0.00. IMPRESSION: 1. Chest discomfort of unknown etiology. This may represent atypical angina pectoris; however, given the patient's recent possible positive stress test approximately 3 weeks ago plus his multiple risk factors, he may require a left heart catheterization. 2. Emphysema. 3. Tobacco dependency. 4. Multiple sclerosis. 5. Status post bilateral herniorrhaphy with mesh placement approximately 1 year ago. PLAN: We will admit, may require cardiology consultation, a 2-dimensional echocardiogram and possibly a left heart catheterization. I will cycle cardiac enzymes and follow. Ruben Bernard MD /[id number] [facility] File#: [id number] Verified/Reviewed by 11/24/17 0652 JOSE [facility] PATIENT NAME: OLIVER CUNNINGHAM [address] [facility] [address] MEDICAL REC #: [id number] [place] [address] ADMIT DATE: 11/22/17 DISCHARGE DATE: HISTORY and PHYSICAL ATTENDING PHY: Ruben Bernard MD CDLSTRESS Observed: 11/22/2017 Status: UNK Source: [facility] 9:32 PM [facility] REPOSITORY INTERPRETING PHYSICIAN: Harsha Lord MD ATTENDING PHYSICIAN: Ruben Bernard MD ORDERING/REFERRING PHYSICIAN: DATE(S) OF SERVICE: 11/25/2017 PROCEDURE: Nuclear stress test. PATIENT RELATED INFORMATION: Age: 57 Height: ft in Weight: lbs. oz. Sex: M Smokes: Cigars: #Cigs: Pipe: Inactive: Mod.Man.Labor: Heavy Work: Sedentary: Sedentary and Ex. Program: HR Since last meal: REASON FOR PERFORMING TEST: MEDICATIONS: INTERPRETATION: EKG response to exercise: Blood pressure response: Rhythm: Conduction: ST segment: Heart rate response: Fitness classification: Resting ECG: The patient had a resting dose of sestamibi of 26.3 mCi sestamibi and during stress was 33.1. During acquisition of raw images, there was no significant motion of the cardiac silhouette. There was normal thickening in all zones. Overall ejection fraction was 56%. CONCLUSION: 1. No definite area of ischemia is seen. 2. Preserved left ventricular function with an ejection fraction of 56% with end-diastolic volume of 85 mL. 3. Slight stress dilatation is noted, though this could be due to multiple reasons. Harsha Lord MD [facility] PATIENT NAME: OLIVER CUNNINGHAM [address] [facility] [address] [place] MEDICAL REC #: [id number] [place] [address] ADMIT DATE: 08/17/18 DISCHARGE DATE: 11/25/17 ATTENDING PHY: Ruben Bernard MD CARDIAC STRESS TEST REPORT [id number] [facility] File#: [id number] Verified/Reviewed by [id number] [facility] PATIENT NAME: OLVIER CUNNINGHAM [facility] [address] MEDICAL REC #: [id number] [place] [address] ADMIT DATE: 11/22/17 DISCHARGE DATE: 11/25/17 ATTENDING PHY: Ruben Bernard MD CARDIAC STRESS TEST REPORT CDLSTRESS Observed: 11/22/2017 Status: UNK Source: [facility] 9:32 PM [facility] REPOSITORY INTERPRETING PHYSICIAN: Micik Dejesus MD ATTENDING PHYSICIAN: Ruben Bernard MD ORDERING/REFERRING PHYSICIAN: DATE(S) OF SERVICE: 11/25/2017 PROCEDURE: PATIENT RELATED INFORMATION: Age: 57 Height: ft in Weight: lbs. oz. Sex: M Smokes: Cigars: #Cigs: Pipe: Inactive: Mod.Man.Labor: Heavy Work: Sedentary: Sedentary and Ex. Program: X HR Since last meal: REASON FOR PERFORMING TEST: Chest pain. MEDICATIONS: INTERPRETATION: EKG response to exercise: Blood pressure response: Rhythm: Conduction: ST segment: Heart rate response: Fitness classification: Resting ECG: COMMENTS: Baseline ECG shows sinus rhythm with rate of 75, with mild ST segment changes. The patient received Lexiscan. The patient achieved 74% of maximum predicted heart rate. There was an adequate workload achieved, rate-pressure product of 221. The patient completed 1 MET. During the pharmacologic stress test, no evidence of dysrhythmias. No evidence of hyper or hypotensive responses. There was deeper ST segment depression from baseline, suggestive but not diagnostic of ischemia. IMPRESSION: 1. Exercise tolerance is not applicable. 2. Negative pharmacologically-induced dysrhythmias. 3. Negative pharmacologically-induced hyper- or hypotensive response. [facility] PATIENT NAME: OLIVER CUNNINGHMA [facility] [address] MEDICAL REC #: [id number] [place] [address] ADMIT DATE: 11/22/17 DISCHARGE DATE: 11/25/17 ATTENDING PHY: Ruben Bernard MD CARDIAC STRESS TEST REPORT 4. Inconclusive pharmacologically-induced ischemic EKG changes secondary to baseline ST abnormalities. Nuclear images pending. Micki Dejesus MD /[id number] [facility] File#: [id number] Verified/Reviewed by [facility] PATIENT NAME: OLIVER CUNNINGHAM [address] [facility] [address] [place] MEDICAL REC #: [id number] [place] [address] ADMIT DATE: 11/22/17 DISCHARGE DATE: 11/25/17 ATTENDING PHY: Ruben Bernard MD CARDIAC STRESS TEST REPORT TROPONIN I POC Collected: 11/22/2017 Status: F Source: [facility] 7:44 PM [facility] REPOSITORY TYPE CODE TESTS RESULT OUT OF RANGE REFERENCE UNITS LAB L550.32642 0.0-0.06 NG/ML Normal TROPONIN I POC 0.00 Result Comment: 0.0 - 0.06 NG/ML - NON- DIAGNOSTIC (REFERENCE RANGE) 0.07 - 0.59 NG/ML - INDETERMINATE Greater than or equal to 0.6 NG/ML - INDICATIVE OF MYOCARDIAL DAMAGE CBC W/DIFF Collected: 11/22/2017 Status: F Source: [facility] 7:40 PM [facility] REPOSITORY Order Comment: [place]: TYPE CODE TESTS RESULT OUT OF RANGE REFERENCE UNITS LAB L200.38385 4.5-11.0 K/CU MM High WBC 12.8 LAB L200.08501 4.50-6.00 M/CU MM RBC Normal 4.52 LAB L200.72613 13.5-17.5 G/DL HGB Normal 14.3 LAB L200.74162 41.0-53.0 % HCT Normal 42.4 LAB L200.84378 80.0-99.0 fl MCV Normal 93.8 LAB L200.79962 32.0-36.0 GM/DL MCHC Normal 33.7 LAB L200.98993 11-14.5 RDW Normal 14.0 LAB L200.82583 9.4-12.4 Low MPV 8.9 LAB L200.42897 150-450 K/CU MM PLT Normal 237 LAB L200.35793 45-75 % NEUTROPHILS Normal % 64.9 LAB L200.03051 Less than 2 % IMMATURE Normal GRAN % 0.4 LAB L200.16891 20-40 % LYMPH % Normal 24.0 LAB L200.33931 2-10 % MONOCYTE % Normal 9.9 LAB L200.89436 0-5 % EOSINOPHIL Normal % 0.3 LAB L200.96767 0-2 % BASOPHIL % Normal 0.5 LAB L200.99514 2.0-8.3 K/CU MM NEUTROPHIL Normal ABS 8.30 LAB L200.02830 Less than 2 K/CU MM IMMATR GRAN Normal ABS 0.10 LAB L200.09099 0.9-4.4 K/CU MM LYMPH ABS Normal 3.10 LAB L200.21978 0.1-1.1 K/CU MM High MONO ABS 1.30 LAB L200.43201 0-0.5 K/CU MM EOS ABS Normal 0.00 LAB L200.67831 0-0.2 K/CU MM BASO ABS Normal 0.10 LAB L200.92062 Less than 1 % NRBC Normal 0.0 Performed By: #### L200.28282 #### [facility] [address] [place] [address] [facility] Collected: 11/22/2017 Status: F Source: [facility] 7:40 PM [facility] REPOSITORY Order Comment: [place]: TYPE CODE TESTS RESULT OUT OF RANGE REFERENCE UNITS LAB L500.83371 136-145 MMOL/L Normal NA 140 LAB L500.69746 3.5-5.1 MMOL/L Low K 3.4 LAB L500.24090 98-107 MMOL/L Normal CL 107 LAB L500.32449 21-32 MMOL/L Normal CO2 23 LAB L500.97041 5-16 MMOL/L Normal AGAP 10 LAB L500.02044 70-100 MG/DL Normal GLU 98 Result Comment: 70-100- Normal Fasting; 100-125 Impaired Fasting; greater than 126 on more than one result- Diabetes. ADA guidelines. Results may be falsely elevated after the administration of Sulfapyridine. Results may be falsely depressed after the administration of Sulfasalazine. LAB L500.11638 7-26 MG/DL Normal BUN 14 LAB L500.28038 0.670-1.170 MG/DL Low CREAT 0.579 Result Comment: Patients receiving either N-Acetylcysteine (NAC) or Metamizole prior to venipuncture, may have falsely depressed results. LAB L500.07064 15-24 Normal BUN/CREA 24 LAB L500.95810 8.5-10.1 MG/DL Low CALCIUM TOTAL 8.4 Performed By: #### L500.36998, L500.15512 #### [facility] [address] [place] [address] GFR EST Collected: 11/22/2017 Status: F Source: [facility] 7:40 PM [facility] REPOSITORY Order Comment: [place]: TYPE CODE TESTS RESULT OUT OF RANGE REFERENCE UNITS LAB L500.23277 ML/MIN Normal IF non-AFR Greater than AMER 60 LAB L500.73880 ML/MIN Normal IF Greater than AMER 60 Performed By: #### L500.65945, L500.75683 #### [facility] [address] [place] [address] EMERGENCY DEPARTMENT Observed: 11/21/2017 Status: F Source: [place] SUMMARY 2:54 PM [facility] REPOSITORY [facility] Medical Records Department [address] [place] [address] Emergency Department Summary 11/20/171933 MR#: [id number] Acct: [id number] Name: OLIVER CUNNINGHAM Rep #: [id number] : 1960 57 From: Sabas Winters MD PCP: Care Physician, No Primary Status: DEP ER - ER Visit Summary Date of Service: 11/20/17 Chief Complaint: Back pain History of Present Illness: The patient is a 57 M who goes to [facility]. He reports that he has had back pain for years. It worsened 2 hours ago. He describes it as a burning pain that is 10 out of 10 at worst and 9 out of 10 currently. It is worsened by movement. He is taken Tylenol without relief. He denies any radiation to his legs. No problems with his bowels or bladder. No numbness in his groin. No recent trauma. No fall, MVA, or change in activity. On review of systems patient reports that he has a little bit of cough and mild shortness of breath. He denies any fever or chills. He has had nausea without vomiting. No abdominal pain. He has had 3 episodes of diarrhea today. No blood in his stools or black tarry stools. He has a headache that is 4 out of 10 in severity. He has a history of similar headaches. He denies any other complaints. Physical Examination: Vitals: Stable. Afebrile. General: A AND O x 3. NAD. Cardiovascular exam: Regular rate and rhythm, no murmur, rub or gallop. Respiratory exam: No respiratory distress. Mild wheezing bilaterally with greatly decreased air movement. Abdominal exam: Soft, nontender, nondistended, normal bowel sounds. No peritoneal signs. Back: Diffuse moderate tenderness to palpation over the lumbar spine and the paraspinous musculature in the lumbar region. No point tenderness. Negative straight leg bilaterally. 5/5 DF, PF, EHL bilaterally. Normal sensation to light touch throughout. Extremity: No clubbing, cyanosis, or edema. Palpable dorsalis pedis pulses bilaterally. Test Results: Chest x-ray shows chronic changes. Emergency Department Course and Treatment: Patient was given dose of Toradol IM. History of albuterol and Atrovent aerosols. Is given dose of prednisone p.o. Treatment Plan: Patient will be discharged instructions to use NSAIDs and Tylenol for pain. He will be placed on a 5 day burst of prednisone. Is given prescription for an albuterol MDI. Instructed to follow-up his primary care physician 1-2 days if not improving. Return to the emergency department for any worsening symptoms. Disposition: To home in improved and stable condition. Impression: 1. Chronic back pain. 2. COPD. This note was generated with [employer] software. It may contain incorrect words, spelling, and punctuation that were not noted in review of the chart prior to signing ED Disposition - Plan for ED Patient: Disposition: Home or Assisted Living Chief Complaint: Shortness of Breath Instructions: ED COPD Flare, ED Neck Back Pain General Prescriptions: Albuterol Inhaler [Ventolin Hfa] 1 - 2 puff INHALATION Q4H PRN PRN #1 inhaler PRN Reason: Wheezing Prednisone [Deltasone] 60 mg PO DAILY #15 tablet Referrals: Doctor,Your [STAFF PHYSICIAN] - 3-5 Days if not improving What to do if you have Problems For any increased pain, shortness of breath, bleeding, nausea or vomiting, chest pain, or any unexpected problems, contact your Primary Care Provider. Call [facility] ([phone]) or report to the closest Emergency Room. Call 911 if necessary. 11/21/17 9948 <Electronically signed by Sabas Winters MD> Date Sabas Winters MD Cosigner Signature (If Indicated): Date CC: No Primary Care Physician CHEST PA AND LATERAL Observed: 11/20/2017 Status: F Source: [place] 5:48 PM [facility] REPOSITORY [facility] Imaging Services [address] [place] [address] Chest PA and Lateral MR#: [id number] Acct: [id number] Name: OLIVER CUNNINGHAM Rep #: [id number] : 1960 M 57 From: Nelda Cam MD PCP: Care Physician, No Primary Status: REG ER Study: Chest PA and Lateral Date of Exam: 11/20/17 Exam# [id number] Ordering Dr: Sabas Winters MD STUDY: X-RAY CHEST REASON FOR EXAM: Male, 57 years old. Shortness of breath TECHNIQUE: Frontal and lateral views of the chest were obtained. COMPARISON: June 02, 2017 FINDINGS: The lungs are hyperinflated. There are no focal airspace opacities. There is no demonstrated pleural abnormality. The cardiac silhouette is normal in size. The mediastinum and hilar regions are unremarkable. Normal visualized pulmonary arteries. Normal visualized aortic arch and descending thoracic aorta. The thoracic spine is unremarkable. The visualized ribs, clavicles, and shoulders are unremarkable. Cholecystectomy clips are present. RAD/Chest PA and Lateral IMPRESSION: No acute cardiopulmonary abnormalities. There is stable COPD. Electronically Signed: Nelda Cam MD at 19:23 EDT Tel Direct: [phone], Service support , CC: No Primary Care Physician; Sabas Winters MD Nutrition Services Worker: Signed 12 LEAD ELECTROCARDIOGRAM Observed: 11/18/2017 Status: F Source: [place] 2:59 PM [facility] REPOSITORY [facility] Cardiovascular Services [address] [place] [address] 12 Lead EKG 11/13/17 1753 MR#: [id number] Acct: [id number] Name: OLIVER CUNNINGHAM Rep #: [id number] : 1960 57 From: Dominic Karimi MD Attending Dr: Status: DEP ER Ordering Dr: YOIL Lozano MD Date: 11/13/17 Location: ED Sex: M C Admitted: Test Reason : CP Blood Pressure : / mmHG Vent. Rate : 102 BPM Atrial Rate : 102 BPM P-R Int : 124 ms QRS Dur : 098 ms QT Int : 346 ms P-R-T Axes : 079 089 066 degrees QTc Int : 450 ms Sinus tachycardia Otherwise normal ECG Confirmed by DOMINIC KARIMI MD ([id number]), medical editor ASHLEY GARCIA ([id number]) on 11/18/2017 2:58:47 PM Referred By: GERTRUDE Confirmed By:DOMINIC KARIMI MD 11/18/17 1458 Date Dominic Karimi MD CC: ED Doctor, ; No Primary Care Physician; Ace Krishnamurthy MD Signed EMERGENCY DEPARTMENT Observed: 11/13/2017 Status: F Source: [place] SUMMARY 6:32 PM [facility] REPOSITORY [facility] Medical Records Department [address] [place] [address] Emergency Department Summary 11/13/17 1825 MR#: [id number] Acct: [id number] Name: OLIVER CUNNINGHAM Rep #: [id number] : 1960 57 From: Bernard Krishnamurthy MD PCP: Care Physician, No Primary Status: PRE ER - ER Visit Summary Date of Service: 11/13/17 Chief Complaint: Chronic abdominal pain History of Present Illness: The patient is a 57 M with chronic abdominal pain since he had bilateral inguinal hernia surgery 2 years ago. He states that ever since the surgery was done, he has had pain at the site and feels like there is a problem with the mesh. He tells me that he has had over 20 CT scans for this and has seen specialist all over the country. He is currently seeing a specialist in [place] who is planning to do surgery to remove the mesh. He was there last month and he reported that the pain from his abdomen is radiating into his chest so they delayed the surgery until he could be cleared by cardiology. He subsequently saw a traveling clerk while he was in [place] and had a stress test which was negative. He was cleared for the surgery but it had to be rescheduled. He presents today without any new symptoms. He states that his complaints are the same as chronic. Denies diaphoresis, chest pain, shortness of breath. No exertional symptoms. He only has pain at his hernia site and only with certain movements or palpation. He is requesting a new prescription for an abdominal pain medication. Physical Examination: Vitals are within normal limits except for mild hypertension. He states that he did not take his medication. He is not in distress. He looks well-hydrated. Neck is supple. Heart tones are regular and without murmur. Lungs are clear bilaterally. Abdomen is soft and nontender. The skin over his surgery site looks normal. There is no palpable mass. No evidence of incarcerated hernia. No rebound or guarding. No peritoneal signs. Strong pulses in all extremities. No clinical evidence of DVT. Test Results: None performed Emergency Department Course and Treatment: I spoke at length with the patient. He assures me that this is a chronic recurrent problem for him. He told me that he does not want any testing done and states that he has had basically every test that there is and that he knows all of this is from the hernia surgery. He is planning to go through with the surgery but is here requesting a refill of his cholestyramine to cover him for a short period he is slightly tachycardic and hypertensive here on arrival but it is improved on repeat. He is not in any distress. He has no evidence of an acute surgical abdomen. His EKG is unremarkable and he currently denies any chest pain. While he did travel recently to [place], he has no clinical evidence of DVT and no pleuritic chest pain. No shortness of breath and his pulse ox is normal. I do not suspect DVT or PE. He does not want any testing done here and given the chronicity of his symptoms, I do think it is safe for him to continue outpatient follow-up. Treatment Plan: I prescribed Levsin. He will follow-up as scheduled Disposition: Home stable condition Impression: Chronic abdominal pain This note was generated with [employer] dictation software. It may contain incorrect words, spelling, and punctuation that were not noted in review of the chart prior to signing ED Disposition - Plan for ED Patient: Chief Complaint: General Illness Instructions: ED Chronic Pain Management Prescriptions: Hyoscyamine [Levsinex] 0.375 mg PO Q12 #6 tablet Referrals: Care Physician,No Primary [Primary Care Provider] - What to do if you have Problems For any increased pain, shortness of breath, bleeding, nausea or vomiting, chest pain, or any unexpected problems, contact your Primary Care Provider. Call [facility] ([phone]) or report to the closest Emergency Room. Call 911 if necessary. 11/13/17 0412 <Electronically signed by Bernard Krishnamurthy MD> Date Bernard Krishnamurthy MD Cosigner Signature (If Indicated): Date CC: No Primary Care Physician HEMOGRAM Collected: 11/08/2017 Status: F Source: [facility] 1:26 PM SYSTEM REPOSITORY TYPE CODE TESTS RESULT OUT OF RANGE REFERENCE UNITS LAB IWBC 3.6-10.7 10*3/uL WBC Normal 7.3 LAB RBC 4.40-5.90 10*6/uL RBC Normal 4.63 LAB HGB 13.0-18.0 g/dL Normal Hemoglobin 15.1 LAB HCT 40.0-52.0 % Normal Hematocrit 44.0 LAB MCV 80.0-98.0 fL MCV Normal 95.1 LAB MCH 26.0-34.0 pg MCH Normal 32.5 LAB MCHC 32.0-36.0 % MCHC Normal 34.2 LAB RDW 11.5-14.5 % High RDW 14.6 LAB PLT 140-440 10*3/uL Platelet Normal 221 LAB MPV 7.4-10.4 fL MPV Normal 7.6 Performed By: #### HEMOG, CMP3, LIPA4 #### [facility] [address] [place] [address] COMP METABOLIC PANEL Collected: 11/08/2017 Status: F Source: [facility] 1:26 PM SYSTEM REPOSITORY TYPE CODE TESTS RESULT OUT OF RANGE REFERENCE UNITS LAB NA3 137-145 mmol/L Sodium Normal 139 LAB K3 3.5-5.1 mmol/L Normal Potassium 3.8 LAB CL3 98-107 mmol/L Chloride Normal 104 LAB CO23 22-30 mmol/L Carbon Normal Dioxide 29 LAB ANIN3 NA Anion Gap 6 LAB GLUC3 70-100 mg/dL High Glucose 128 LAB BUN3 7-20 mg/dL Urea Normal Nitrogen 10 LAB CRET3 0.52-1.25 mg/dL Normal Creatinine 0.67 LAB GF3BR >60 mL/min eGFR > 60.0 LAB GF3WR >60 mL/min eGFR OTHER > 60.0 Result Comment: Source- MDRD equation with creatinine calibration to IDMS(NKDEP) eGFR not recommended for drug dose adjustment LAB CA3 8.4-10.4 mg/dL Calcium Normal 9.1 LAB ALB3 3.5-5.0 g/dL Albumin, Serum Normal 4.1 LAB TP3 6.3-8.2 g/dL Total Protein Normal 6.6 LAB BILT3 0.2-1.3 mg/dL Normal Bilirubin,Total 0.5 LAB ALKP3 38-126 U/L Alkaline Normal Phosphatase 64 LAB ALT3 13-69 U/L ALT (SGPT) Normal 25 LAB AST3 15-46 U/L AST (SGOT) Normal 20 Performed By: #### HEMOG, CMP3, LIPA4 #### [facility] [address] [place] [address] LIPASE Collected: 11/08/2017 Status: F Source: [facility] 1:26 PM SYSTEM REPOSITORY TYPE CODE TESTS RESULT OUT OF RANGE REFERENCE UNITS LAB LIPA4 23-300 U/L Normal Lipase 82 Performed By: #### HEMOG, CMP3, LIPA4 #### [facility] [address] [place] [address] URINALYSIS,MACRO Collected: 11/08/2017 Status: F Source: [facility] 1:26 PM SYSTEM REPOSITORY TYPE CODE TESTS RESULT OUT OF REFERENCE UNITS RANGE LAB APPUR Clear NA Appearance CLEAR LAB COLUR Lt. Yellow NA Color YELLOW LAB USG 1.005-1.030 NA Specific Normal [place],Urine 1.017 LAB UPH 5.0-8.0 NA pH,Urine Normal 6.0 LAB ULUK Negative NA Leukocytes NEG LAB UNIT Negative NA Nitrites NEG LAB UPRO Negative mg/dL Total Protein,Urine NEG LAB UGLU Negative mg/dL Glucose,Urine NEG LAB UKET Negative mg/dL Ketone,Urine NEG LAB UURO 0-1 mg/dL Urobilinogen 0.2 LAB UBIL Negative NA Bilirubin,Ur NEG LAB UBLD Negative {RBC}/uL Occult Blood,Ur NEG Performed By: #### UAMAC #### [facility] [address] [place] [address] ED NOTE Observed: 11/05/2017 Status: COMPLETED Source: [place] 3:14 PM CLINIC OTHER CAMPUS REPOSITORY [facility] ID: [id number] Author: Tessa LemonRn) KIMBERLEE Gregory Service: Emergency Medicine Author Type: Registered Nurse Type: ED Notes Filed: 11/05/2017 3:14 PM Note Text: Clean catch urine specimen obtained and sent. ED NOTE Observed: 11/05/2017 Status: COMPLETED Source: [place] 3:14 PM CLINIC OTHER CAMPUS REPOSITORY [facility] ID: [id number] Author: Tessa (Rn) KIMBERLEE Grgeory Service: Emergency Medicine Author Type: Registered Nurse Type: ED Notes Filed: 11/05/2017 3:14 PM Note Text: Dr. james aware pt requesting update. Stated will see shortly URINALYSIS ROUTINE Collected: 11/05/2017 Status: F Source: [facility] 3:10 PM HEALTH SYSTEM REPOSITORY TYPE CODE TESTS RESULT OUT OF REFERENCE UNITS RANGE LAB COLOR(LOIN C) Urine Color YELLOW LAB APPUR(LOIN C) Urine Appearance CLEAR LAB GLUUR(LOIN Negative mg/dL C) Glucose Urine NEGATIVE LAB KETON(LOIN Negative mg/dL C) Ketone Urine NEGATIVE LAB HGBUR(LOIN Negative C) Hemoglobin,Urine NEGATIVE LAB PROTU(LOIN Negative mg/dL C) Protein Urine NEGATIVE LAB NITRI(LOIN Negative C) Nitrites Urine NEGATIVE LAB BILIU(LOIN Negative C) Bilirubin Urine NEGATIVE LAB SPG(LOINC) 1.005-1.030 Specific [place], Ur 1.010 LAB PHUR(LOINC 5.0-8.0 ) pH,Urine 6.0 LAB UROBI(LOIN 0.0-1.0 EU/dL C) Urobilinogen,Ur 0.2 LAB LEUKO(LOIN Negative C) Leukocytes NEGATIVE Esterase LAB RBCU1(LOIN 0.0-5.0 /hpf C) RBC,Urine 2.9 LAB WBCU1(LOIN 0.0-5.0 /hpf C) WBC, Urine 0.3 LAB EPIT1(LOIN 0.0-5.0 /hpf C) Ep Cells Urine 0.2 LAB BACT1(LOIN None C) Bacteria Urine NONE LAB HYCA1(LOIN 0.0-1.0 /lpf C) Hyaline Cast 0.0 Performed By: #### URIN2 #### [place] [address] COMPREHENSIVE PANEL Collected: 11/05/2017 Status: F Source: [facility] 1:24 PM HEALTH SYSTEM REPOSITORY TYPE CODE TESTS RESULT OUT OF REFERENCE UNITS RANGE LAB NA(LOINC) 136-145 mEq/L Sodium Blood 137 LAB K(LOINC) 3.5-5.1 mEq/L Potassium Blood 3.7 LAB CL(LOINC) 98-107 mEq/L Chloride Blood 104 LAB CO2(LOINC) 21-32 mEq/L CO2 Blood 26 LAB GLU(LOINC) 70-99 mg/dL Glucose High Blood 122 LAB BUN(LOINC) 7-18 mg/dL Low BUN Blood 6 LAB CREA(LOINC 0.67-1.17 mg/dL ) Low Creatinine Blood 0.60 LAB CA(LOINC) 8.5-10.1 mg/dL Low Calcium Blood 8.3 LAB ALB(LOINC) 3.4-5.0 g/dL Albumin Blood 3.6 LAB TP(LOINC) 6.4-8.2 g/dL Total Protein 6.9 LAB AST(LOINC) 9-37 U/L AST-SGOT Blood 16 LAB ALT(LOINC) 12-78 U/L ALT-SGPT Blood 21 LAB ALKP(LOINC 46-116 U/L ) Alk Phosphatase 72 LAB BILIT(LOIN 0.2-1.0 mg/dL C) Total Bilirubin 0.3 LAB ANGAP(LOIN 8-16 C) Anion Gap 11 Performed By: #### P14 #### [place] [address] MDRD GFR Collected: 11/05/2017 Status: F Source: [facility] 1:24 PM HEALTH SYSTEM REPOSITORY TYPE CODE TESTS RESULT OUT OF RANGE REFERENCE UNITS LAB GFRFN(LOINC >60mL/min/1.73m ) 2 eGFR >60 Result Comment: If the patient is , multiply the result by 1.210. Performed By: #### GFR #### [place] [address] HEMOGRAM/DIFF Collected: 11/05/2017 Status: F Source: [facility] 1:24 PM HEALTH SYSTEM REPOSITORY TYPE CODE TESTS RESULT OUT OF REFERENCE UNITS RANGE LAB WBC(LOINC) 4.23-9.07 thou/cmm WBC 7.29 LAB RBC(LOINC) 4.63-6.08 mil/cmm RBC 4.80 LAB HGB(LOINC) 13.7-17.5 g/dL Hgb 15.2 LAB HCT(LOINC) 40.1-51.0 % Hct 44.6 LAB MCV(LOINC) 83.2-95.6 fl MCV 92.9 LAB MCH(LOINC) 25.7-32.2 pg MCH 31.7 LAB MCHC(LOINC 32.3-36.5 % ) MCHC 34.1 LAB RDW(LOINC) 11.6-14.4 % RDW 13.2 LAB RDWSD(LOIN 36.1-45.8 fl C) RDW SD 45.3 LAB PLT(LOINC) 141-365 thou/cmm Platelet 213 LAB MPV(LOINC) 8.7-12.0 fl MPV 9.4 LAB SEG(LOINC) % Seg Neutrophil 64.5 LAB IGRE(LOINC % ) Immature Grans 0.40 LAB LYMPH(LOIN % C) Lymphocyte 25.0 LAB MNO(LOINC) % Monocyte 9.3 LAB EOSIN(LOIN % C) Eosinophil 0.4 LAB BASO(LOINC % ) Basophil 0.4 LAB SEGN(LOINC 1.78-5.38 thou/cmm ) Abs. Neut (ANC) 4.70 LAB IGAB(LOINC 0.00-0.05 thou/cmm ) Abs Immature Grans 0.03 LAB LYMN(LOINC 0.84-2.85 thou/cmm ) Abs. Lymph 1.82 LAB MONON(LOIN 0.30-0.82 thou/cmm C) Abs. Mellette 0.68 LAB EOSN(LOINC 0.04-0.54 thou/cmm ) Low Abs. Eosin 0.03 LAB BASON(LOIN 0.01-0.08 thou/cmm C) Abs. Baso 0.03 Performed By: #### CBCD1 #### [facility] [address] [place] [address] ED PROV NOTE Observed: 11/05/2017 Status: COMPLETED Source: [place] 1:00 PM CLINIC OTHER CAMPUS REPOSITORY O ID: [id number] Author: Kaia Kline MD Service: Emergency Medicine Author Type: Physician Type: ED Provider Notes Filed: 11/09/2017 9:30 AM Note Text: ED Provider Note Patient Name: Oliver Cunningham SERVICE DATE: 11/05/17 History Patient presents with: Abdominal Pain: Pt c/o constant lower abdominal pain and RUQ abdominal pain. Pt states that he can feel the slivers moving through his stomach. Pt has nausea, no vomiting. LBM 11/04. Pt took Tylenol this morning without relief. Oliver Cunningham is a 57-year-old male presenting for evaluation of lower abdominal pain in his left and right lower quadrants. He states that he can feel slivers of moving to the vessels in his lower abdomen going from one hip to the other. He states he knows the direction of blood flow because of the pain. He thinks is related to an MS medication that he stopped taking a year ago, because he states it takes more than a year to get out of his blood strain. He states that his MS doctor did test him for, and states that it is not in his bloodstream any further, but he still believes this is the cause of the symptoms. He's had multiple visits to the ER for evaluation of lower abdominal pain, and he states that the difference between today's pain and previous visits is that this is more severe. He rates his 9.5 out of 10. It is located in his lower abdomen, and goes from one hip to the other. He also has some pain in his right upper quadrant, and states that he feels like it is pushing on his liver. He endorses nausea without vomiting. He denies drugs or alcohol. He denies trauma to his abdomen. He denies chest pain. He denies shortness of breath. His pain was treated with some Tylenol this morning, which was a little helpful, and that was about 5:00 this morning. He has not tried anything else for his pain. He denies pain with urination or change in urinary symptoms. Denies other acute sick symptoms. PAST MEDICAL HISTORY Diagnosis Date - Black spider bite 10/2007 - Cervical radiculopathy - CHI (closed head injury) 20 years ago. 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 PAST SURGICAL HISTORY Procedure Laterality Date - AMPUTATION FINGER/THUMB 05/29/10 Traumatic, Right middle, ring and distal - BACK SURGERY HX - CHOLECYSTECTOMY HX - COLONOSCOPY 11/20 - COLONOSCOPY 03/2016 - EGD W/O OR W/BRUSH/WASH 06/24/13 EGD - HERNIA REPAIR HX 2013 umbilical - HERNIA REPAIR HX Bilateral 05/2016 Bilateral Inguinal Hernia repair - ORTHOPEDICS SURGERY HX - PAST SURGICAL HISTORY OF 1993 lumbar diskectomy - REMOVAL GALLBLADDER 1998 laparoscopic - REMOVE TONSIL AND ADENOI UNDER AGE 13 remote - ROTATOR CUFF REPAIR 05/24/11 Right Shoulder - ROTATOR CUFF REPAIR 07/10/11 Left shoulder - TONSILLECTOMY HX FAMILY HISTORY Problem Relation Age of Onset - Emphysema Mother - Cancer Mother lung/glioblastoma(Brain) - Thyroid Mother - Heart Mother - melanie dawson tooth [OTHER] Mother - GBM [OTHER] Mother - Coronary Artery Disease Father MA and CABG - MS [OTHER] Daughter - Lipids Paternal Grandfather - Lipids Brother - Psychiatry Sister - Kidney Disease Daughter - Psychiatry Daughter bipolar disorder Social History Social History Main Topics - Smoking status: Current Every Day Smoker Packs/day: 0.25 Years: 45.00 Types: Cigarettes Start date: 04/08/1977 - Smokeless tobacco: Never Used - Alcohol use No Comment: none - Drug use: No - Sexual activity: Not Currently Partners: Female ALLERGIES Allergen Reactions - Hydrocodone GI Upset Feels like bleeding Inside stomach - Lyrica [Pregabalin] Intolerance - Aubagio [Teriflunom* Other: See Comments Passed out -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 Upset Feels like bleeding Inside stomach - Lyrica [Pregabalin] Intolerance - Aubagio [Teriflunom* Other: See Comments Passed out - Bentyl [Dicyclomine* Other: See Comments - Celexa [Citalopram * Other: See Comments Terrible headaches. - Copaxone [Glatirame* Rash, Itching - Cymbalta [Duloxetin* Other: See Comments chest pain, abnormal sensation/feeling in chest - Erythromycin Other: See Comments turns everything to stone inside my bowels - Fenofibrate Intolerance chest pain and numbness - Hctz [Amiloride-Hyd* Other: See Comments Tripping, falling, no sense of balance - Lipitor [Atorvastat* Other: See Comments ruq PAIN - Miralax [Polyethyle* Swelling, GI Upset Swollen abdomen - go lightly - Mobic [Meloxicam] Itching - Morphine Other: See Comments Side pain - Penicillins Rash high fevers - Pravastatin Other: See Comments Muscle soreness - Prilosec [Omeprazol* Other: See Comments increased abdominal pressure, travels up to the chest area - Reglan [Metoclopram* GI Upset Also gives chest pain - Welchol [Colesevela* Other: See Comments Abdomen and chest pain - Xifaxan [Rifaximin] Other: See Comments Insomnia Review of Systems Constitutional: Negative for chills and fever. Respiratory: Positive for cough (x 1 month ) and shortness of breath (chronic ). Cardiovascular: Positive for chest pain (chronic, worse ). Gastrointestinal: Positive for abdominal pain (chronic ). Negative for anal bleeding, blood in stool, nausea and vomiting. Musculoskeletal: Positive for back pain (chronic ) and neck pain (chronic ). Neurological: Negative for syncope. Hematological: Does not bruise/bleed easily. Physical Exam BP 161/91 Pulse 109 Resp 18 Ht 5' 11 (1.80m) Wt 184 lb (83.5kg) SpO2 97% BMI 25.67 kg/(m2). Physical Exam Constitutional: He appears well-developed and well-nourished. No distress. Non-toxic appearing. Tangential HENT: Mouth/Throat: Oropharynx is clear and moist. Eyes: Conjunctivae are normal. Neck: Neck supple. No JVD present. Cardiovascular: Regular rhythm. Tachycardic Pulmonary/Chest: Effort normal. No respiratory distress. He has no rales. Very diminished breath sounds to lower lung menjivar. Faint expiratory wheeze in RUL field. Abdominal: Soft. He exhibits no distension and no mass. There is no tenderness. There is no guarding. Musculoskeletal: CORTES x 4. DP pulses intact b/l. Neurological: He is alert. Awake and alert. Normal speech. Motor grossly intact. Skin: Skin is warm and dry. No rash noted. Psychiatric: He has a normal mood and affect. Nursing note and vitals reviewed. Diagnostic Testing Results for orders placed or performed during the hospital encounter of 10/22/17 CBC + DIFF Result Value Ref Range WBC 7.71 3.70 - 11.00 k/uL RBC 5.18 4.20 - 6.00 m/uL Hemoglobin 16.3 13.0 - 17.0 g/dL Hematocrit 47.9 39.0 - 51.0 % MCV 92.5 80.0 - 100.0 fL MCH 31.5 26.0 - 34.0 pG MCHC 34.0 30.5 - 36.0 g/dL RDW-CV 13.0 11.5 - 15.0 % Platelet Count 246 150 - 400 k/uL MPV 9.3 9.0 - 12.7 fL Neut% 65.2 % Abs Neut (ANC) 5.03 1.45 - 7.50 k/uL Lymph% 24.3 % Abs Lymph 1.87 1.00 - 4.00 k/uL Mellette% 9.5 % Abs Mellette 0.73 <0.87 k/uL Eosin% 0.6 % Abs Eosin 0.05 <0.46 k/uL Baso% 0.4 % Abs Baso 0.03 <0.11 k/uL COMP METABOLIC PANEL Result Value Ref Range Protein, Total 7.4 6.3 - 8.0 g/dL Albumin 4.4 3.9 - 4.9 g/dL Calcium 8.8 8.5 - 10.2 mg/dL Bilirubin, Total 0.4 0.2 - 1.3 mg/dL Alkaline Phosphatase 82 36 - 108 U/L AST 16 14 - 40 U/L Glucose 143 (H) 74 - 99 mg/dL BUN 6 (L) 9 - 24 mg/dL Creatinine 0.76 0.73 - 1.22 mg/dL Sodium 139 136 - 144 mmol/L Potassium 3.8 3.7 - 5.1 mmol/L Chloride 101 97 - 105 mmol/L CO2 26 22 - 30 mmol/L Anion Gap 12 9 - 18 mmol/L ALT 18 10 - 54 U/L eGFR- >60 eGFR-All Other Races >60 . HIGH SENSITIVITY TROPONIN T Result Value Ref Range ILEANA High Sensitivity 8 <12 ng/L CK TOTAL AND CK-MB Result Value Ref Range CK 96 51 - 298 U/L MB 1.9 <7.7 ng/mL CK MB % CK MB % not reported with CK <100 U/L. 0.0 - 4.0 % MAGNESIUM BLD Result Value Ref Range Magnesium 2.2 1.7 - 2.3 mg/dL LIPASE BLD Result Value Ref Range Lipase 30 16 - 61 U/L *Note: Due to a large number of results and/or encounters for the requested time period, some results have not been displayed. A complete set of results can be found in Results Review. ? XR CHEST 2V FRONTAL/LAT (Final result) Result time 10/22/17 12:39:27 Final result by [facility] Provider (10/22/17 12:39:27) Impression: IMPRESSION: No acute radiographic abnormality. Nutrition Services Worker: PSCB ? Transcribe Date/Time: Oct 22 2017 12:36P Dictated by : EUGENIO VAZQUEZ MD This examination was interpreted and the report reviewed and electronically signed by: EUGENIO VAZQUEZ MD on Oct 22 2017 12:37PM ?EST -EKG: NSR with ventricular rate of 100. -routine labs obtained and relatively unremarkable. -differential includes but not limited to: ACS, pneumonia, COPD exacerbation, chronic pain exacerbation, anxiety to name a few. Procedures ED Course / Clinical Impression -given ASA 324 mg chewed. Clinical Impressions as of Oct 22 1304 Abdominal pain, unspecified abdominal location Chest pain, unspecified type MDM / Disposition / Plan This is a 57 y/o male PMHx of chronic abdominal/chest pain with frequent ED visits here with worsening chest pain x 1 days. Upon arrival to ED patient is mildly tachycardic and hypertensive. No respiratory distress or hypoxia. HR and BP downtrending without medications. EKG obtained and NSR, no ischemic event acutely. Routine labs obtained and unremarkable. CXR without acute cardiopulmonary findings per radiologist. HEART score of 3 with alleged unremarkable stress test last month. At this time patient will be discharged home for outpatient f/u due to low suspicion for ACS event. Advised to return with worsening of symptoms. The patient was DISCHARGED: Counseled patient regarding lab results AND radiology results AND suspected diagnosis AND need for follow- up. Discharged home with verbal and written instructions. They were instructed to return as needed for persistent or worsening symptoms or any new concerns. Condition at time of disposition: stable SIGNATURE: Heidi Spring PA-C Attending Note I have personally performed a face to face assessment of the patient and?have reviewed the PA/MANAGER DIGITAL AD OPERATIONS note.?My donovan findings include: History - Mr. Cunningham continues to have (very chronic, regrettably) lower abd pain and it now radiates to his legs. He has some chest pain as well. He attributes his years of pain to an MS medicine. Exam - no distress. Assessment/Plan - Mr. Cunningham is a 57 yo M presenting w/ years of discomfort in his abd, some in legs/chest now. Will do brief w/u, likely d/c home w/ close f/u, return if worse. ? ECG NSR @ 100 bpm no STEMI normal intervals and axis. ? Negative initial w/u, will d/c home w/ f/u, returning if new sx's. ? Other additions or changes: None ? Signature: Handy Ralph MD Date: 10/22/2017 Time: 12:31 PM Heidi Spring 10/22/17 1344 ED NOTE Observed: 10/22/2017 Status: COMPLETED Source: [place] 12:30 PM [facility] REPOSITORY HNO ID: [id number] Author: Handy Ralph MD Service: (none) Author Type: Physician Type: ED Notes Filed: 10/22/2017 1:04 PM Note Text: Attending Note I have personally performed a face to face assessment of the patient and have reviewed the PA/MANAGER DIGITAL AD OPERATIONS note. My donovan findings include: History - Mr. Cunningham continues to have (very chronic, regrettably) lower abd pain and it now radiates to his legs. He has some chest pain as well. He attributes his years of pain to an MS medicine. Exam - no distress. Assessment/Plan - Mr. Cunningham is a 57 yo M presenting w/ years of discomfort in his abd, some in legs/chest now. Will do brief w/u, likely d/c home w/ close f/u, return if worse. ECG NSR @ 100 bpm no STEMI normal intervals and axis. Negative initial w/u, will d/c home w/ f/u, returning if new sx's. Other additions or changes: None Signature: Handy Ralph MD Date: 10/22/2017 Time: 12:31 PM XR CHEST 2V FRONTAL/LAT Observed: 10/22/2017 Status: F Source: [place] 12:20 PM [facility] REPOSITORY * * *Final Report* * * DATE OF EXAM: Oct 22 2017 12:20PM MDX [id number] - XR CHEST 2V FRONTAL/LAT / PROCEDURE REASON: Chest pain, acute, nonspecific, low prob CAD * * * * Physician Interpretation * * * * EXAMINATION: CHEST RADIOGRAPH (2 VIEW FRONTAL and LATERAL) Clinical History: Chest pain, acute, nonspecific, low prob CAD MQ: XC2_5 Comparison: 10/20/2017 RESULT: Lines, tubes, and devices: None. Lungs and pleura: No consolidation. No lung mass. No pleural effusion. Lung hyperexpansion again noted. Cardiomediastinal silhouette: Normal cardiomediastinal silhouette. Other: . IMPRESSION: No acute radiographic abnormality. Nutrition Services Worker: PSCB Transcribe Date/Time: Oct 22 2017 12:36P Dictated by : EUGENIO VAZQUEZ MD This examination was interpreted and the report reviewed and electronically signed by: EUGENIO VAZQUEZ MD on Oct 22 2017 12:37PM EST [id number] ED NOTE Observed: 10/22/2017 Status: COMPLETED Source: [place] 11:50 AM [facility] REPOSITORY HNO ID: [id number] Author: Micki (Rn) KIMBERLEE Hughes Service: Nursing Author Type: Registered Nurse Type: ED Notes Filed: 10/22/2017 11:54 AM Note Text: Patient presents to ED for Chest Pain On arrival to room patient states that his Chest pain originates in his abdomen and goes into chest. Patient repeatedly states that he has shards of something in his body. IPOC noted and patient appears anxious. Patient states he does not believe his CP is related to his heart. IV established on monitor, VSS. Tachycardia noted. CBC AND DIFFERENTIAL Collected: 10/22/2017 Status: F Source: [place] 11:50 AM [facility] REPOSITORY TYPE CODE TESTS RESULT OUT OF REFERENCE UNITS RANGE LAB WBC 3.70-11.00 k/uL WBC 7.71 LAB RBC 4.20-6.00 m/uL RBC 5.18 LAB HGB 13.0-17.0 g/dL Hemoglobin 16.3 LAB HCT 39.0-51.0 % Hematocrit 47.9 LAB MCV 80.0-100.0 fL MCV 92.5 LAB MCH 26.0-34.0 pG MCH 31.5 LAB MCHC 30.5-36.0 g/dL MCHC 34.0 LAB RDWCV 11.5-15.0 % RDW-CV 13.0 LAB PLTCT 150-400 k/uL Platelet Count 246 LAB MPV 9.0-12.7 fL MPV 9.3 LAB ANEUT % Neut% 65.2 LAB AANEUT 1.45-7.50 k/uL Abs Neut 5.03 LAB ALYMP % Lymph% 24.3 LAB AALYMP 1.00-4.00 k/uL Abs Lymph 1.87 LAB AMONO % Mellette% 9.5 LAB AAMONO <0.87 k/uL Abs Mellette 0.73 LAB AEOS % Eosin% 0.6 LAB AAEOS <0.46 k/uL Abs Eosin 0.05 LAB ABASO % Baso% 0.4 LAB AABASO <0.11 k/uL Abs Baso 0.03 Performed By: #### CBCDIF, CMP, LIPA, MG1 #### [facility] [address] [place] [address] COMP METABOLIC PANEL Collected: 10/22/2017 Status: F Source: [place] 11:50 AM [facility] OTHER [facility] REPOSITORY TYPE CODE TESTS RESULT OUT OF REFERENCE UNITS RANGE LAB TP 6.3-8.0 g/dL Protein, Total 7.4 LAB ALB 3.9-4.9 g/dL Albumin 4.4 LAB CA 8.5-10.2 mg/dL Calcium, Total 8.8 LAB TBIL 0.2-1.3 mg/dL Bilirubin, Total 0.4 LAB ALKP 36-108 U/L Alkaline Phosphatase 82 LAB AST 14-40 U/L AST 16 LAB GLU 74-99 mg/dL Glucose High 143 Result Comment: The [place] Diabetes Association (ADA) provides guidance for cutoff values for fasting glucose and random glucose. The ADA defines fasting as no caloric intake for at least 8 hours. Fas ting plasma glucose results between 100 to 125 mg/dL indicate increased risk for diabetes (prediabetes). Fasting plasma glucose results greater than or equal to 126 mg/dL meet the criteria for diagnosis of diabetes. In the absence of unequivocal hyperglycemia, results should be confirmed by repeat testing. In a patient with classic symptoms of hyperglycemia or hyperglycemic crisis, random plasma glucose results greater than or equal to 200 mg/dL meet the criteria for diagnosis of diabetes. Reference: Standards of Medical Care in Diabetes 2016, [place] [employer]. Diabetes Care. 2016.39(Suppl 1). LAB BUN 9-24 mg/dL BUN Low 6 LAB CRET 0.73-1.22 mg/dL Creatinine 0.76 LAB NA 136-144 mmol/L Sodium 139 LAB K 3.7-5.1 mmol/L Potassium 3.8 LAB CL 97-105 mmol/L Chloride 101 LAB CO2 22-30 mmol/L CO2 26 LAB AGAP 9-18 mmol/L Anion Gap 12 LAB ALT 10-54 U/L ALT 18 LAB GFRAA eGFR- Amer. >60 LAB GFRNAA . eGFR-All Other Races >60 Result Comment: eGFR (Estimated GFR) Units of measure: mL/min/1.73 meters squared eGFR is derived from the reexpressed MDRD Study equation using the following parameters: serum creatinine, age, gender and race. The creatinine assay has been calibrated to be traceable to IDMS. An eGFR <60 mL/min/1.73m2 for >3 months is consistent with chronic kidney disease. Refer to KDOQI guidelines for clinical interpretation. In patients with unstable renal function, e.g. those with acute kidney injury, the eGFR may not accurately reflect actual GFR. Performed By: #### CBCDIF, CMP, LIPA, MG1 #### [facility] [address] [place] [phone] LIPASE Collected: 10/22/2017 Status: F Source: [place] 11:50 AM [facility] REPOSITORY TYPE CODE TESTS RESULT OUT OF REFERENCE UNITS RANGE LAB LIPA 16-61 U/L Lipase 30 Performed By: #### CBCDIF, CMP, LIPA, MG1 #### [facility] [address] [place] [phone] MAGNESIUM Collected: 10/22/2017 Status: F Source: [place] 11:50 AM [facility] REPOSITORY TYPE CODE TESTS RESULT OUT OF REFERENCE UNITS RANGE LAB MG 1.7-2.3 mg/dL Magnesium 2.2 Performed By: #### CBCDIF, CMP, LIPA, MG1 #### [facility] [address] [place] [phone] CK, TOTAL AND CKMB Collected: 10/22/2017 Status: F Source: [place] 11:50 AM [facility] REPOSITORY TYPE CODE TESTS RESULT OUT OF REFERENCE UNITS RANGE LAB CK 51-298 U/L 96 CK LAB MB <7.7 ng/mL MB 1.9 LAB CKMBRI 0.0-4.0 % CK CK MB MB % not % reported with CK <100 U/L. Performed By: #### CKCKMB #### [facility] [address] [facility] [phone] HIGH SENS TROPONIN T Collected: 10/22/2017 Status: F Source: [place] 11:50 AM [facility] REPOSITORY TYPE CODE TESTS RESULT OUT OF REFERENCE UNITS RANGE LAB HSTN <12 ng/L High Sensitivity ILEANA 8 Result Comment: When assessing risk for acute coronary syndromes: In patients undergoing blood draw greater than or equal to 2 hours from symptom onset, with history of very low to moderate risk and non-ischemic ECG, an initial hs-Troponin T less than 12 ng/L AND a 1 hour delta hs-Troponin T less than 3 ng/L should be considered very low risk for 30 day MACE. Performed By: #### HSTNT #### [facility] [address] [facility] [phone] EKG Observed: 10/22/2017 Status: F Source: [place] 11:49 AM [facility] REPOSITORY NAME : OLIVER CUNNINGHAM PID : [id number] : 1960 Gender : Male Race : ORD : [id number] Procedure Date : Oct 22 2017 11:49:27 Edit Date : Oct 22 2017 17:29:20 Diagnosis:NORMAL SINUS RHYTHM NORMAL ECG WHEN COMPARED WITH ECG OF 14-JUN-2017 09:37, NO SIGNIFICANT CHANGE WAS FOUND Confirmed by MD Membreno Qarab ([id number]) on 10/22/2017 5:29:15 PM Ventricular Rate : 100 BPM Atrial Rate : 100 BPM P-R Interval : 114 ms QRS Duration : 88 ms Q-T Interval : 342 ms QTC Calculation(Bezet) : 441 ms P Derby Line : 80 degrees R Derby Line : 86 degrees T Derby Line : 58 degrees Test Reason : Chest Pain Location : 1 : ER 5 Overread By : MD Membreno Qarab Edited By : MD Membreno Qarab Referred By : , Acquired by : ND, ED NOTE Observed: 10/20/2017 Status: COMPLETED Source: [place] 5:48 PM [facility] REPOSITORY HNO ID: [id number] Author: Jennifer (Medic) Chase Service: Emergency Medicine Author Type: Child Custody Evaluator and Order Department Supervisor Type: ED Notes Filed: 10/23/2017 11:26 AM Note Text: Emergency Services: ED Call Back Questionnaire SERVICE DATE: 10/20/2017 Are you feeling better? no Any questions about discharge instructions and follow-up care? no Were you able to make a follow up appointment? yes Do you have any further questions? no Is there anything that we could have done differently to improve your ED visit? no SIGNATURE: Quita Sousa PATIENT NAME: Oliver Cunningham DATE: October 23, 2017 TIME: 11:22 AM ED NOTE Observed: 10/20/2017 Status: COMPLETED Source: [place] 5:43 PM [facility] REPOSITORY HNO ID: [id number] Author: Domingo LemonRnJessica Kelly RN Service: Emergency Medicine Author Type: Registered Nurse Type: ED Notes Filed: 10/20/2017 5:43 PM Note Text: Pt discharged home in stable condition. Pt voiced understanding of discharge instructions and f/u recommendations. All questions answered and PIV discontinued. URINALYSIS WITH Collected: 10/20/2017 Status: F Source: [facility] 4:10 PM [facility] REPOSITORY TYPE CODE TESTS RESULT OUT OF RANGE REFERENCE UNITS LAB UCOL Yellow Color Yellow LAB [facility] Clear Clarity Abnormal Cloudy Alert LAB UGLUC Negative mg/dL Glucose, Urine Negative LAB UBIL Negative Bilirubin, Urine Negative LAB UKET Negative Ketones, Urine Negative LAB USPG 1.005-1.030 Specific [place], Ur 1.014 LAB UHGB Negative Hemoglobin/Blood, Negative Ur LAB UPH 4.5-8.0 pH 6.0 LAB UPROT Negative mg/dL Protein, Urine Negative LAB UUROB Normal Urobilinogen Normal LAB UNITR Negative Nitrites Negative LAB ULKEST Negative Leukest Negative LAB UCOM Comments SEE COMMENT Result Comment: N/A LAB UMCOM Urine SEE Madhu Comment COMMENT Result Comment: N/A LAB UWBC 0-5 /HPF WBC 0-5 LAB URBC 0-3 /HPF Abnormal Alert RBC 3-5 Performed By: #### UAWMIC #### [facility] [address] [place], [place] [address] ED PROV NOTE Observed: 10/20/2017 Status: COMPLETED Source: [place] 3:10 PM [facility] REPOSITORY HNO ID: [id number] Author: Fariba Gonzalez MD Service: Emergency Medicine Author Type: Physician Type: ED Provider Notes Filed: 10/22/2017 9:09 AM Note Text: ED Provider Note Patient Name: Oliver Cunningham SERVICE DATE: 10/20/17 History 57 year old male presents with abdominal pain for one year that is not getting better and a cough ?3 weeks. Medical history includes MS, chronic abdominal pain, hypertension, hyperlipidemia, tobacco abuse. Patient reports he was put on a medication Aubagio for MS for about 7 or 8 months and he discontinued it one year ago. He reports that it has since not left his system, he has not been able to get it out with activated charcoal, fluids. He reports that it feels like splinter going through my vessels all through my body and abdomen. Patient reports that his neurologist has checked her levels of this medication and they have been negative however he is certain that this is the cause. He denies nausea, vomiting, diarrhea, fevers, chills. Patient reports that he was treated with doxycycline for pneumonia however he has not feel improved, he still has a productive cough and feels that the pneumonia is not better. Patient has a care plan. PAST MEDICAL HISTORY Diagnosis Date - Black spider bite 10/2007 - Cervical radiculopathy - CHI (closed head injury) 20 years ago. 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 PAST SURGICAL HISTORY Procedure Laterality Date - AMPUTATION FINGER/THUMB 05/29/10 Traumatic, Right middle, ring and distal - BACK SURGERY HX - CHOLECYSTECTOMY HX - COLONOSCOPY 11/20 - COLONOSCOPY 03/2016 - EGD W/O OR W/BRUSH/WASH 06/24/13 EGD - HERNIA REPAIR HX 2013 umbilical - HERNIA REPAIR HX Bilateral 05/2016 Bilateral Inguinal Hernia repair - ORTHOPEDICS SURGERY HX - PAST SURGICAL HISTORY OF 1993 lumbar diskectomy - REMOVAL GALLBLADDER 1998 laparoscopic - REMOVE TONSIL AND ADENOI UNDER AGE 13 remote - ROTATOR CUFF REPAIR 05/24/11 Right Shoulder - ROTATOR CUFF REPAIR 07/10/11 Left shoulder - TONSILLECTOMY HX FAMILY HISTORY Problem Relation Age of Onset - Emphysema Mother - Cancer Mother lung/glioblastoma(Brain) - Thyroid Mother - Heart Mother - melanie james [OTHER] Mother - GBM [OTHER] Mother - Coronary Artery Disease Father MA and CABG - MS [OTHER] Daughter - Lipids Paternal Grandfather - Lipids Brother - Psychiatry Sister - Kidney Disease Daughter - Psychiatry Daughter bipolar disorder Social History Social History Main Topics - Smoking status: Current Every Day Smoker Packs/day: 0.25 Years: 45.00 Types: Cigarettes Start date: 04/08/1977 - Smokeless tobacco: Never Used - Alcohol use No Comment: none - Drug use: No - Sexual activity: Not Currently Partners: Female ALLERGIES Allergen Reactions - Hydrocodone GI Upset Feels like bleeding Inside stomach - Lyrica [Pregabalin] Intolerance - Aubagio [Teriflunom* Other: See Comments Passed out - Bentyl [Dicyclomine* Other: See Comments - Celexa [Citalopram * Other: See Comments Terrible headaches. - Copaxone [Glatirame* Rash, Itching - Cymbalta [Duloxetin* Other: See Comments chest pain, abnormal sensation/feeling in chest - Erythromycin Other: See Comments turns everything to stone inside my bowels - Fenofibrate Intolerance chest pain and numbness - Hctz [Amiloride-Hyd* Other: See Comments Tripping, falling, no sense of balance - Lipitor [Atorvastat* Other: See Comments ruq PAIN - Miralax [Polyethyle* Swelling, GI Upset Swollen abdomen - go lightly - Mobic [Meloxicam] Itching - Morphine Other: See Comments Side pain - Penicillins Rash high fevers - Pravastatin Other: See Comments Muscle soreness - Prilosec [Omeprazol* Other: See Comments increased abdominal pressure, travels up to the chest area - Reglan [Metoclopram* GI Upset Also gives chest pain - Welchol [Colesevela* Other: See Comments Abdomen and chest pain - Xifaxan [Rifaximin] Other: See Comments Insomnia Review of Systems Constitutional: Negative for appetite change, chills and diaphoresis. HENT: Negative for congestion. Eyes: Negative for visual disturbance. Respiratory: Positive for cough. Negative for chest tightness, shortness of breath and wheezing. Cardiovascular: Negative for chest pain and palpitations. Gastrointestinal: Positive for abdominal pain. Genitourinary: Positive for decreased urine volume. Negative for dysuria, flank pain, frequency and hematuria. Musculoskeletal: Negative for back pain. Skin: Negative for color change, pallor and rash. Neurological: Negative for dizziness and headaches. Physical Exam BP 136/89 Pulse 82 Temp (Src) 97.8 (Oral) Resp 20 Ht 5' 11 (1.80m) Wt 184 lb (83.5kg) SpO2 97% BMI 25.67 kg/(m2). Physical Exam Constitutional: He is oriented to person, place, and time. He appears well-developed and well-nourished. No distress. HENT: Head: Normocephalic and atraumatic. Eyes: Conjunctivae and EOM are normal. No scleral icterus. Neck: Normal range of motion. Neck supple. Cardiovascular: Normal rate, regular rhythm, normal heart sounds and intact distal pulses. No murmur heard. Pulmonary/Chest: Effort normal and breath sounds normal. No respiratory distress. He has no wheezes. He has no rales. He exhibits no tenderness. Abdominal: Soft. Bowel sounds are normal. He exhibits no distension and no mass. There is no tenderness (pain is not reproducible ). There is no rebound and no guarding. NO tenderness mcburney point or valdivia sign Musculoskeletal: Normal range of motion. He exhibits no edema. Neurological: He is alert and oriented to person, place, and time. No sensory deficit. Skin: Skin is warm and dry. Capillary refill takes less than 2 seconds. No rash noted. He is not diaphoretic. No erythema. No pallor. Psychiatric: He has a normal mood and affect. His behavior is normal. Thought content normal. Nursing note and vitals reviewed. Diagnostic Testing ED Labs Ordered and Reviewed BASIC METABOLIC PNL - Abnormal; Notable for the following: Result Value Ref Range BUN 8 (*) 9 - 24 mg/dL Potassium 3.4 (*) 3.7 - 5.1 mmol/L All other components within normal limits CBC + DIFF - Abnormal; Notable for the following: MPV 8.9 (*) 9.0 - 12.7 fL All other components within normal limits URINALYSIS WITH MICROSCOPIC - Abnormal; Notable for the following: Clarity Cloudy (*) Clear RBC, Urine 3-5 (*) 0 - 3 /HPF All other components within normal limits Procedures ED Course / Clinical Impression Clinical Impressions as of Oct 20 2014 Generalized abdominal pain Cough Hypokalemia MDM / Disposition / Plan MDM 57 year old male presents with abdominal pain for one year that is not getting better and a cough ?3 weeks. Medical history includes MS, chronic abdominal pain, hypertension, hyperlipidemia, tobacco abuse. He is Afebrile and hemodynamically stable. History and physical exam are not suggestive of acute abdomen. Reviewed patient's care plan. Lab work obtained, potassium replaced as slightly hypokalemic. No evidence of acute abnormality on chest x-ray, I discussed with patient that there is no concerns for recurrent pneumonia. We discussed smoking and side effects of a cause. Urine is nonspecific, small amount of red blood cells present. Discussed follow-up with patient's neurologist for further evaluation and side effects of this medication, we discussed that there is nothing we would find at this time is speaking not draw specific labs or do more at this time for chronic abdominal pain. Patient is understanding and has an appointment coming up with his neurologist and will follow up as planned. He was discharged in good condition. SIGNATURE: VINNY Rendon (Pa) 10/20/172015 Attending Note I have personally performed a face to face assessment of the patient and have reviewed the PA/MANAGER [employer]PERATIONS note. My donovan findings include: Assessment/Plan are chronic abdominal pain. Patient relates this taking a medication one year ago. He does appear to have some general malaise. No acute issues at this time. Signature: Fariba Gonzalez MD Date: 10/22/2017 Time: 9:09 AM Fariba Gonzalez MD 10/22/17 0909 CBC AND DIFFERENTIAL Collected: 10/20/2017 Status: F Source: [place] 2:40 PM [facility] TYPE CODE TESTS RESULT OUT OF REFERENCE UNITS RANGE LAB WBC 3.70-11.00 k/uL WBC 8.65 LAB RBC 4.20-6.00 m/uL RBC 4.67 LAB HGB 13.0-17.0 g/dL Hemoglobin 14.5 LAB HCT 39.0-51.0 % Hematocrit 42.4 LAB MCV 80.0-100.0 fL MCV 90.8 LAB MCH 26.0-34.0 pG MCH 31.0 LAB MCHC 30.5-36.0 g/dL MCHC 34.2 LAB RDWCV 11.5-15.0 % RDW-CV 12.7 LAB PLTCT 150-400 k/uL Platelet Count 208 LAB MPV 9.0-12.7 fL Low MPV 8.9 LAB ANEUT % Neut% 65.0 LAB AANEUT 1.45-7.50 k/uL Abs Neut 5.61 LAB ALYMP % Lymph% 25.7 LAB AALYMP 1.00-4.00 k/uL Abs Lymph 2.22 LAB AMONO % Mellette% 8.3 LAB AAMONO <0.87 k/uL Abs Mellette 0.72 LAB AEOS % Eosin% 0.5 LAB AAEOS <0.46 k/uL Abs Eosin 0.04 LAB ABASO % Baso% 0.5 LAB AABASO <0.11 k/uL Abs Baso 0.04 LAB AUNRBC 0 /100 WBC NRBCs 0.0 LAB ABNRBC <0.01 k/uL Absolute nRBC <0.01 LAB DTYP DTYPE Auto Diff Performed By: #### CBCDIF, BMP #### [facility] [address], [place] [address] BASIC METABOLIC PANL Collected: 10/20/2017 Status: F Source: [place] 2:40 PM [facility] REPOSITORY TYPE CODE TESTS RESULT OUT OF REFERENCE UNITS RANGE LAB GLU 74-99 mg/dL Glucose 95 Result Comment: The [place] [employer] (ADA) provides guidance for cutoff values for fasting glucose and random glucose. The ADA defines fasting as no caloric intake for at least 8 hours. Fas ting plasma glucose results between 100 to 125 mg/dL indicate increased risk for diabetes (prediabetes). Fasting plasma glucose results greater than or equal to 126 mg/dL meet the criteria for diagnosis of diabetes. In the absence of unequivocal hyperglycemia, results should be confirmed by repeat testing. In a patient with classic symptoms of hyperglycemia or hyperglycemic crisis, random plasma glucose results greater than or equal to 200 mg/dL meet the criteria for diagnosis of diabetes. Reference: Standards of Medical Care in Diabetes 2016, [place] [employer]. Diabetes Care. 2016.39(Suppl 1). LAB BUN 9-24 mg/dL BUN Low 8 LAB CRET 0.73-1.22 mg/dL Creatinine 0.75 LAB NA 136-144 mmol/L Sodium 142 LAB K 3.7-5.1 mmol/L Potassium Low 3.4 LAB CL 97-105 mmol/L Chloride 104 LAB CO2 22-30 mmol/L CO2 26 LAB AGAP 9-18 mmol/L Anion Gap 12 LAB CA 8.5-10.2 mg/dL Calcium, Total 8.7 LAB GFRAA eGFR- Amer. >60 LAB GFRNAA . eGFR-All Other Races >60 Result Comment: eGFR (Estimated GFR) Units of measure: mL/min/1.73 meters squared eGFR is derived from the reexpressed MDRD Study equation using the following parameters: serum creatinine, age, gender and race. The creatinine assay has been calibrated to be traceable to IDMS. An eGFR <60 mL/min/1.73m2 for >3 months is consistent with chronic kidney disease. Refer to KDOQI guidelines for clinical interpretation. In patients with unstable renal function, e.g. those with acute kidney injury, the eGFR may not accurately reflect actual GFR. Performed By: #### CBCDIF, BMP #### [facility] [address] [place] [address] PROGRESS Observed: 10/20/2017 Status: COMPLETED Source: [place] 2:18 PM [facility] REPOSITORY HNO ID: [id number] Author: Teresita Ashton (Rt) Service: Radiology Author Type: Order Department Supervisor Type: Progress Notes Filed: 10/20/2017 2:19 PM Note Text: Radiology Service Progress Note PATIENT NAME: Oliver Cunningham DATE OF SERVICE: October 20, 2017 TIME: 2:18 PM PATIENT IDENTITY VERIFICATION COMPLETED USING TWO (2) METHODS: Patient confirmed name verbally and ID band matches.. PATIENT GENDER DATA: Male PATIENT RELEVANT IMPLANT DATA REVIEWED: Not Applicable RADIOLOGY DEPARTMENT: General X-ray: Exam(s) Completed: Chest X-Ray PERIPHERAL IV DATA: Not applicable SIGNED BY: RT Yariel October 20, 2017 2:18 PM XR CHEST 2V FRONTAL/LAT Observed: 10/20/2017 Status: F Source: [place] 2:18 PM [facility] REPOSITORY * * *Final Report* * * DATE OF EXAM: Oct 20 2017 2:18PM EGX [id number] - XR CHEST 2V FRONTAL/LAT / PROCEDURE REASON: Cough, new onset * * * * Physician Interpretation * * * * EXAMINATION: CHEST RADIOGRAPH (2 VIEW FRONTAL and LATERAL) Clinical History: Cough, new onset MQ: XC2_5 Comparison: 06/14/2017 chest radiograph RESULT: Lines, tubes, and devices: None. Lungs and pleura: Hyperinflated lungs. No focal consolidation. No pleural effusion. No pneumothorax. Pulmonary vasculature is unremarkable. Cardiomediastinal silhouette: Normal cardiomediastinal silhouette. Other: No acute osseous abnormality. IMPRESSION: No acute radiographic abnormality. Nutrition Services Worker: TORRIE Transcribe Date/Time: Oct 20 2017 2:26P Dictated by : JEFFERSON SMITH DO This examination was interpreted and the report reviewed and electronically signed by: PATRICK RODGERS MD on Oct 20 2017 2:31PM EST [id number] ED NOTE Observed: 10/20/2017 Status: COMPLETED Source: [place] 12:11 PM [facility] REPOSITORY HNO ID: [id number] Author: Darvin LemonRn) KIMBERLEE Ghosh Service: Emergency Medicine Author Type: Registered Nurse Type: ED Notes Filed: 10/20/2017 12:12 PM Note Text: Pt presents to ED with multiple complaints. Pt reports liver and kidney pain, states my kidneys aren't working right. Pt also reports all my veins hurt. Pt states this has been an ongoing issue since he had an allergic reaction to a medication. NAD noted, ABCs intact. PROGRESS Observed: 10/17/2017 Status: COMPLETED Source: [place] 11:38 AM [facility] REPOSITORY HNO ID: [id number] Author: Tommie Gama Rt Service: (none) Author Type: (none) Type: Progress Notes Filed: 10/17/2017 11:39 AM Note Text: Radiology Service Progress Note PATIENT NAME: Oliver Cunningham DATE OF SERVICE: October 17, 2017 TIME: 11:38 AM PATIENT IDENTITY VERIFICATION COMPLETED USING TWO (2) METHODS: Patient confirmed name verbally and Date of . PATIENT GENDER DATA: Male PATIENT RELEVANT IMPLANT DATA REVIEWED: Yes CONTRAST INDUCED NEPHROPATHY RISK FACTORS: Not applicable CREATININE: Creatinine Date Value Ref Range Status 07/18/2017 0.67 (L) 0.73 - 1.22 mg/dL Final 06/14/2017 0.73 0.73 - 1.22 mg/dL Final 06/06/2017 0.64 (L) 0.73 - 1.22 mg/dL Final eGFR-All Other Races Date Value Ref Range Status 07/18/2017 >60 . Final Comment: eGFR (Estimated GFR) Units of measure: mL/min/1.73 meters squared eGFR is derived from the reexpressed MDRD Study equation using the following parameters: serum creatinine, age, gender and race. The creatinine assay has been calibrated to be traceable to IDMS. An eGFR <60 mL/min/1.73m2 for >3 months is consistent with chronic kidney disease. Refer to KDOQI guidelines for clinical interpretation. In patients with unstable renal function, e.g. those with acute kidney injury, the eGFR may not accurately reflect actual GFR. eGFR- Date Value Ref Range Status 07/18/2017 >60 Final P.O.C.T. RESULTS: N/A October 17, 2017 RADIOLOGIST NOTIFIED?: No ALLERGIES: Reviewed and unchanged CONTRAST ALLERGY: NO. PERIPHERAL IV ACCESS: Ambulatory: IV type: A peripheral IV was started in the Right antecubital site with a Angio cath: 22 gauge., Site assessment: Clean,Dry and Intact, Site disposition Discontinued RADIOLOGY DEPARTMENT: MRI, brain,MS, cervical,thoracic spine SIGNED BY: Tommie Gonzalez October 17, 2017 11:38 AM MRI THORACIC SPINE Observed: 10/17/2017 Status: F Source: [place] WO/W IVCON 11:27 AM [facility] REPOSITORY * * *Final Report* * * DATE OF EXAM: Oct 17 2017 11:27AM [facility] [id number] - MRI THORACIC SPINE WO/W IVCON / PROCEDURE REASON: Multiple sclerosis * * * * Physician Interpretation * * * * EXAMINATION: MRI BRAIN WO/W IVCON, MRI CERVICAL SPINE WO/W IVCON, MRI THORACIC SPINE WO/W IVCON. HISTORY: Multiple sclerosis. Routine follow-up TECHNIQUE: Brain MRI with demyelinating disease protocol with and without gadolinium. Routine cervical spine and thoracic protocol with and without gadolinium. MQ: [id number]_2 Contrast: 16 mL Dotarem IV COMPARISON: 06/14/2016 MRI of the brain and cervical spine and previous MRI of the thoracic spine from 12/31/2011. RESULT: MR BRAIN: Parenchymal Findings: There are multiple foci of hyperintensity on FLAIR and T2 within the white matter, compatible with the clinical diagnosis of multiple sclerosis. New T2 Lesions: None Interval Improvement: None. New Enhancing Lesions: None T2 [place] of Disease: Mild. Parenchymal Volume Loss: None. Other Significant Findings/Site(s) of New T2 Lesions(s): None. MR CERVICAL: Counting reference: Craniocervical junction. Alignment: Alignment is anatomic. Craniocervical Junction: Craniocervical junction is normal. Cord Findings: Patchy foci of hyperintensity are noted in the cervical and visualized upper thoracic cord on the T2, IR and axial gradient echo images compatible with the history of multiple sclerosis. Cord T2 Plaque [place]: Mild New T2 Lesions: None Interval Cord Improvement: None New Cord Enhancing Lesions: None Cord Volume Loss: Normal morphology for age . No enhancement. Bone marrow signal/fracture: No evidence of pathologic marrow infiltration. No evidence of prior fracture. Cervical soft tissues: The paraspinal soft tissues are within normal limits. Cervical Canal and foramina: Stable degenerative changes at C5-6 and C6-7. THORACIC SPINE: Counting reference: Lumbosacral junction. For the purposes of this report, L5S1 is considered the last lumbar type disc space. Thoracic soft tissues: The paraspinal soft tissues are unremarkable. Alignment: Alignment is anatomic. Cord: The visualized cord is within normal limits of signal intensity and morphology. No enhancement. Bone marrow signal/fracture: No evidence of pathologic marrow infiltration. No evidence of prior fracture. Canal and foramina: The thoracic canal and foramina are patent. IMPRESSION: Multiple intracranial white matter lesions compatible with multiple sclerosis. No new T2 lesions and no new enhancing lesions. No significant parenchymal volume loss. Other Significant Intracranial Findings: None. Scattered intramedullary lesions compatible with the clinical history of multiple sclerosis. No new T2 intramedullary lesions and no new enhancing intramedullary lesions. No significant volume loss of the upper spinal cord for age. Other Significant Cervical Spine Findings: No significant cervical canal or foraminal stenosis. Stable unremarkable MRI of the thoracic spine. Nutrition Services Worker: PSCB Transcribe Date/Time: Oct 17 2017 12:43P Dictated by : JASPER MAE MD This examination was interpreted and the report reviewed and electronically signed by: JASPER MAE MD on Oct 17 2017 12:57PM EST [id number] MRI CERVICAL SPINE Observed: 10/17/2017 Status: F Source: [place] WO/W IVCON 11:27 AM [facility] REPOSITORY * * *Final Report* * * DATE OF EXAM: Oct 17 2017 11:27AM [facility] 0298 - MRI CERVICAL SPINE WO/W IVCON / PROCEDURE REASON: Multiple sclerosis * * * * Physician Interpretation * * * * EXAMINATION: MRI BRAIN WO/W IVCON, MRI CERVICAL SPINE WO/W IVCON, MRI THORACIC SPINE WO/W IVCON. HISTORY: Multiple sclerosis. Routine follow-up TECHNIQUE: Brain MRI with demyelinating disease protocol with and without gadolinium. Routine cervical spine and thoracic protocol with and without gadolinium. MQ: MRBMSPlusWOW_2 Contrast: 16 mL Dotarem IV COMPARISON: 06/14/2016 MRI of the brain and cervical spine and previous MRI of the thoracic spine from 12/31/2011. RESULT: MR BRAIN: Parenchymal Findings: There are multiple foci of hyperintensity on FLAIR and T2 within the white matter, compatible with the clinical diagnosis of multiple sclerosis. New T2 Lesions: None Interval Improvement: None. New Enhancing Lesions: None T2 [place] of Disease: Mild. Parenchymal Volume Loss: None. Other Significant Findings/Site(s) of New T2 Lesions(s): None. MR CERVICAL: Counting reference: Craniocervical junction. Alignment: Alignment is anatomic. Craniocervical Junction: Craniocervical junction is normal. Cord Findings: Patchy foci of hyperintensity are noted in the cervical and visualized upper thoracic cord on the T2, IR and axial gradient echo images compatible with the history of multiple sclerosis. Cord T2 Plaque [place]: Mild New T2 Lesions: None Interval Cord Improvement: None New Cord Enhancing Lesions: None Cord Volume Loss: Normal morphology for age . No enhancement. Bone marrow signal/fracture: No evidence of pathologic marrow infiltration. No evidence of prior fracture. Cervical soft tissues: The paraspinal soft tissues are within normal limits. Cervical Canal and foramina: Stable degenerative changes at C5-6 and C6-7. THORACIC SPINE: Counting reference: Lumbosacral junction. For the purposes of this report, L5S1 is considered the last lumbar type disc space. Thoracic soft tissues: The paraspinal soft tissues are unremarkable. Alignment: Alignment is anatomic. Cord: The visualized cord is within normal limits of signal intensity and morphology. No enhancement. Bone marrow signal/fracture: No evidence of pathologic marrow infiltration. No evidence of prior fracture. Canal and foramina: The thoracic canal and foramina are patent. IMPRESSION: Multiple intracranial white matter lesions compatible with multiple sclerosis. No new T2 lesions and no new enhancing lesions. No significant parenchymal volume loss. Other Significant Intracranial Findings: None. Scattered intramedullary lesions compatible with the clinical history of multiple sclerosis. No new T2 intramedullary lesions and no new enhancing intramedullary lesions. No significant volume loss of the upper spinal cord for age. Other Significant Cervical Spine Findings: No significant cervical canal or foraminal stenosis. Stable unremarkable MRI of the thoracic spine. Nutrition Services Worker: TORRIE Transcribe Date/Time: Oct 17 2017 12:43P Dictated by : JASPER MAE MD This examination was interpreted and the report reviewed and electronically signed by: JASPER MAE MD on Oct 17 2017 12:57PM EST [id number] MRI BRAIN WO/W Observed: 10/17/2017 Status: F Source: [place] IVCON 11:27 AM [facility] REPOSITORY * * *Final Report* * * DATE OF EXAM: Oct 17 2017 11:27AM [facility] 0295 - MRI BRAIN WO/W IVCON / PROCEDURE REASON: Multiple sclerosis * * * * Physician Interpretation * * * * EXAMINATION: MRI BRAIN WO/W IVCON, MRI CERVICAL SPINE WO/W IVCON, MRI THORACIC SPINE WO/W IVCON. HISTORY: Multiple sclerosis. Routine follow-up TECHNIQUE: Brain MRI with demyelinating disease protocol with and without gadolinium. Routine cervical spine and thoracic protocol with and without gadolinium. MQ: MRBMSPlusWOW_2 Contrast: 16 mL Dotarem IV COMPARISON: 06/14/2016 MRI of the brain and cervical spine and previous MRI of the thoracic spine from 12/31/2011. RESULT: MR BRAIN: Parenchymal Findings: There are multiple foci of hyperintensity on FLAIR and T2 within the white matter, compatible with the clinical diagnosis of multiple sclerosis. New T2 Lesions: None Interval Improvement: None. New Enhancing Lesions: None T2 [place] of Disease: Mild. Parenchymal Volume Loss: None. Other Significant Findings/Site(s) of New T2 Lesions(s): None. MR CERVICAL: Counting reference: Craniocervical junction. Alignment: Alignment is anatomic. Craniocervical Junction: Craniocervical junction is normal. Cord Findings: Patchy foci of hyperintensity are noted in the cervical and visualized upper thoracic cord on the T2, IR and axial gradient echo images compatible with the history of multiple sclerosis. Cord T2 Plaque [place]: Mild New T2 Lesions: None Interval Cord Improvement: None New Cord Enhancing Lesions: None Cord Volume Loss: Normal morphology for age . No enhancement. Bone marrow signal/fracture: No evidence of pathologic marrow infiltration. No evidence of prior fracture. Cervical soft tissues: The paraspinal soft tissues are within normal limits. Cervical Canal and foramina: Stable degenerative changes at C5-6 and C6-7. THORACIC SPINE: Counting reference: Lumbosacral junction. For the purposes of this report, L5S1 is considered the last lumbar type disc space. Thoracic soft tissues: The paraspinal soft tissues are unremarkable. Alignment: Alignment is anatomic. Cord: The visualized cord is within normal limits of signal intensity and morphology. No enhancement. Bone marrow signal/fracture: No evidence of pathologic marrow infiltration. No evidence of prior fracture. Canal and foramina: The thoracic canal and foramina are patent. IMPRESSION: Multiple intracranial white matter lesions compatible with multiple sclerosis. No new T2 lesions and no new enhancing lesions. No significant parenchymal volume loss. Other Significant Intracranial Findings: None. Scattered intramedullary lesions compatible with the clinical history of multiple sclerosis. No new T2 intramedullary lesions and no new enhancing intramedullary lesions. No significant volume loss of the upper spinal cord for age. Other Significant Cervical Spine Findings: No significant cervical canal or foraminal stenosis. Stable unremarkable MRI of the thoracic spine. Nutrition Services Worker: PSCB Transcribe Date/Time: Oct 17 2017 12:43P Dictated by : JASPER MAE MD This examination was interpreted and the report reviewed and electronically signed by: JASPER MAE MD on Oct 17 2017 12:57PM EST [id number] US PELVIS COMPLETE Observed: 10/14/2017 Status: F Source: [facility] 7:15 AM SYSTEM REPOSITORY Patient Name: OLIVER CUNNINGHAM Ultrasound Exam Date/Time 10/11/2017 19:59:19 EDT Exam US Pelvis Complete Ordering Physician FRANCOIS SORTO Accession Number [id number] CPT4 Codes 47780 () Reason For Exam groin pain Report Indication: Groin pain. Recent hernia surgery. FINDINGS: Grayscale and Doppler flow signal imaging was performed of the groin regions and scrotum. The right testicle is 3.7 x 3.4 x 2.1 cm and left testicle 4.1 x 2.7 x 2.3 cm. Small cyst is seen in the left mid testicle 2 mm. Otherwise no focal testicular lesions. The testes have Doppler flow signal. The right epididymis is 9 mm x 11 mm x 4 mm and the left epididymis is 13 mm x 9 mm x 12 mm. No focal scrotal lesions. Bilateral groin regions were scanned and showed no evidence of masses or fluid collections. The prostate gland is 4.3 x 3.0 x 3.7 cm. The urinary bladder appears unremarkable as visualized. IMPRESSION: No acute testicular process. No mass or fluid collection of the groin regions. The etiology of the patient's symptoms is uncertain. 2 mm incidental left testicular cyst. Consider follow- up to show stability. Report Dictated on Final Dictating Physician: MD STEARNS JOHN Signed Date and Time: 10/14/2017 7:19 am Signed by: MD STEARNS JOHN Transcribed Date and Time: 10/14/2017 7:20 US SCROTUM (CONTENTS) Observed: 10/14/2017 Status: F Source: [facility] 7:15 AM SYSTEM REPOSITORY Patient Name: OLIVER CUNNINGHAM Ultrasound Exam Date/Time 10/11/2017 19:59:29 EDT Exam US Scrotum (Contents) Ordering Physician FRANCOIS SORTO Accession Number [id number] CPT4 Codes 18312 () Reason For Exam groin pain Report Indication: Groin pain. Recent hernia surgery. FINDINGS: Grayscale and Doppler flow signal imaging was performed of the groin regions and scrotum. The right testicle is 3.7 x 3.4 x 2.1 cm and left testicle 4.1 x 2.7 x 2.3 cm. Small cyst is seen in the left mid testicle 2 mm. Otherwise no focal testicular lesions. The testes have Doppler flow signal. The right epididymis is 9 mm x 11 mm x 4 mm and the left epididymis is 13 mm x 9 mm x 12 mm. No focal scrotal lesions. Bilateral groin regions were scanned and showed no evidence of masses or fluid collections. The prostate gland is 4.3 x 3.0 x 3.7 cm. The urinary bladder appears unremarkable as visualized. IMPRESSION: No acute testicular process. No mass or fluid collection of the groin regions. The etiology of the patient's symptoms is uncertain. 2 mm incidental left testicular cyst. Consider follow- up to show stability. Report Dictated on Final Dictating Physician: MD STEARNS JOHN Signed Date and Time: 10/14/2017 7:19 am Signed by: MD STEARNS JOHN Transcribed Date and Time: 10/14/2017 7:20 CBC Collected: 10/06/2017 Status: F Source: [facility] 1:40 PM [facility] REPOSITORY TYPE CODE TESTS RESULT OUT OF REFERENCE UNITS RANGE LAB WBC(LOINC) 4.60-10.80 10 3/mcL WBC 6.60 LAB RBCCT(LOINC 4.04-6.13 10 6/mcL ) RBC 4.63 LAB HGB(LOINC) 14.0-18.0 G/dL Hgb 14.7 LAB HCT(LOINC) 42.0-52.0 % Hct 42.5 LAB MCV(LOINC) 80.0-94.0 fL MCV 91.7 LAB MCH(LOINC) 27.0-31.2 pg High MCH 31.8 LAB MCHC(LOINC) 31.8-35.4 G/dL MCHC 34.7 LAB RDW(LOINC) 11.5-14.5 % RDW 13.3 LAB PLT(LOINC) 130-400 10 3/mcL Platelet 285 LAB MPV(LOINC) 7.4-10.4 fL Low MPV 6.8 Performed By: #### CBC, ADIFF, ANEU, LIP, GFR, CMP #### [place] [id number] .AUTO DIFF Collected: 10/06/2017 Status: F Source: [facility] 1:40 PM [facility] REPOSITORY TYPE CODE TESTS RESULT OUT OF REFERENCE UNITS RANGE LAB PORSHA(LOINC) 37.0-80.0 % Neutrophil % 64.5 LAB LYM(LOINC) 10.0-50.0 % Lymphocyte % 24.3 LAB MON(LOINC) 1.7-13.0 % Monocyte % 9.6 LAB EO(LOINC) 0.0-7.0 % Eosinophil % 0.8 LAB BAS(LOINC) 0.0-2.5 % Basophil % 0.8 LAB ABLYM(LOIN 0.77-3.85 10 3/mcL C) Lymphocyte, 1.60 Absolute LAB NADIR(LOINC 0.15-1.00 10 3/mcL ) Monocyte, 0.60 Absolute LAB AEOS(LOINC 0.00-0.40 10 3/mcL ) Eosinophil, 0.00 Absolute LAB ABAS(LOINC 0.00-0.19 10 3/mcL ) Basophil, 0.10 Absolute Performed By: #### CBC, ADIFF, ANEU, LIP, GFR, CMP #### [address] [address] .NEUABS Collected: 10/06/2017 Status: F Source: [facility] 1:40 PM [facility] REPOSITORY TYPE CODE TESTS RESULT OUT OF REFERENCE UNITS RANGE LAB ANEU(LOINC) 2.85-6.16 10 3/mcL Neutrophil, 4.20 Absolute Performed By: #### CBC, ADIFF, ANEU, LIP, GFR, CMP #### [address] [address] LIP Collected: 10/06/2017 Status: F Source: [facility] 1:40 PM [facility] REPOSITORY TYPE CODE TESTS RESULT OUT OF REFERENCE UNITS RANGE LAB LIP(LOINC) 8-78 IU/L Lipase Level 32 Performed By: #### CBC, ADIFF, ANEU, LIP, GFR, CMP #### [place] [id number] .GFR Collected: 10/06/2017 Status: F Source: [facility] 1:40 PM [facility] REPOSITORY TYPE CODE TESTS RESULT OUT OF REFERENCE UNITS RANGE LAB GFRAA(LOINC ml/min/1.73 ) sqm GFR >60 Greenlandic Result Comment: GFR Population mean for , Non- Americans Ages 20-29 = 116 mL/min/1.73 sq.m. Ages 30-39 = 107 mL/min/1.73 sq.m. Ages 40-49 = 99 mL/min/1.73 sq.m. Ages 50-59 = 93 mL/min/1.73 sq.m. Ages 60-69 = 85 mL/min/1.73 sq.m. Ages 70+ = 75 mL/min/1.73 sq.m. Chronic Kidney Disease: Less than 60 mL/min/1.73 square meters End Stage Renal Disease: Less than 15 mL/min/1.73 square meters LAB GFRNO(LOINC) ml/min/1.73sqm GFR Non- >60 Result Comment: GFR Population mean for , Non- Americans Ages 20-29 = 116 mL/min/1.73 sq.m. Ages 30-39 = 107 mL/min/1.73 sq.m. Ages 40-49 = 99 mL/min/1.73 sq.m. Ages 50-59 = 93 mL/min/1.73 sq.m. Ages 60-69 = 85 mL/min/1.73 sq.m. Ages 70+ = 75 mL/min/1.73 sq.m. Chronic Kidney Disease: Less than 60 mL/min/1.73 square meters End Stage Renal Disease: Less than 15 mL/min/1.73 square meters Performed By: #### CBC, ADIFF, ANEU, LIP, GFR, CMP #### [address] [address] CMP Collected: 10/06/2017 Status: F Source: [facility] 1:40 PM [facility] REPOSITORY TYPE CODE TESTS RESULT OUT OF REFERENCE UNITS RANGE LAB GLU(LOINC) 70-105 mg/dL Glucose High Level 120 LAB NA(LOINC) 136-146 mEq/L Sodium Level 139 LAB K(LOINC) 3.5-5.1 mEq/L Potassium Level 3.5 LAB CL(LOINC) 98-107 mEq/L Chloride 102 LAB CO2(LOINC) 22-29 mEq/L CO2 27 LAB EBAL(LOINC mEq/L ) Electrolyte Balance 10.0 LAB BUN(LOINC) 7.0-18.0 mg/dL BUN 9.1 LAB CRE(LOINC) 0.6-1.2 mg/dL Creatinine Lvl (s) 0.8 LAB BC(LOINC) 7-27 ratio BUN/Creatinine 11 Ratio LAB CA(LOINC) 8.4-10.2 mg/dL Calcium Lvl 9.2 LAB PROT(LOINC 6.0-8.3 G/dL ) Total Protein 6.6 LAB ALB(LOINC) 3.5-5.0 G/dL Albumin Level 4.4 LAB GLB(LOINC) G/dL Globulin 2.2 LAB AG(LOINC) 1.1-2.5 ratio A/G Ratio 2.0 LAB BILT(LOINC 0.2-1.0 mg/dL ) Bili Total 0.3 LAB AP(LOINC) 40-135 IU/L Alk Phos 71 LAB AST(LOINC) 10-40 IU/L AST/SGOT 15 LAB ALT(LOINC) 10-35 IU/L ALT/SGPT 15 Performed By: #### CBC, ADIFF, ANEU, LIP, GFR, CMP #### [address] [address] UA Collected: 10/06/2017 Status: F Source: [facility] 1:40 PM [facility] REPOSITORY TYPE CODE TESTS RESULT OUT OF REFERENCE UNITS RANGE LAB SPCUA(LOIN C) UA Specimen Type Catheter LAB CLRUA(LOIN C) UA Color Yellow LAB APPUA(LOIN Clear C) UA Appear Clear LAB SGUA(LOINC ) UA Spec Grav 1.020 LAB GLUA(LOINC Negative mg/dL ) UA Glucose Negative LAB BILUA(LOIN Negative C) UA Bili Negative LAB KETUA(LOIN Negative mg/dL C) UA Ketones Negative LAB BLDUA(LOIN Negative C) UA Blood Negative LAB PHUA(LOINC ) UA pH 6.5 LAB PROUA(LOIN Negative mg/dL C) UA Protein Negative LAB UROUA(LOIN E.U./dL C) UA Urobilinogen 0.2 LAB NITUA(LOIN Negative C) UA Nitrite Negative LAB LEUUA(LOIN Negative C) UA Leuk Est Negative Performed By: #### UA, UAMICAO #### [address] [address] .URINALYSIS MICROSCOPIC Collected: 10/06/2017 Status: F Source: [facility] 1:40 PM [facility] REPOSITORY TYPE CODE TESTS RESULT OUT OF REFERENCE UNITS RANGE LAB WBCUA(LOIN None Seen /hpf C) UA WBC None Seen LAB RBCUA(LOIN None Seen /hpf C) UA RBC None Seen LAB EPIUA(LOIN None Seen /hpf C) UA Squam Epithelial None Seen Performed By: #### UA, UAMICAO #### [place] [address], [place] [address] HEMOGRAM W/ AUTODIFF Collected: 10/05/2017 Status: F Source: [email or web address] 12:21 PM SYSTEM REPOSITORY TYPE CODE TESTS RESULT OUT OF REFERENCE UNITS RANGE LAB IWBC 3.6-10.7 10*3/uL WBC Normal 8.4 LAB RBC 4.40-5.90 10*6/uL RBC Normal 4.59 LAB HGB 13.0-18.0 g/dL Hemoglobin Normal 14.5 LAB HCT 40.0-52.0 % Hematocrit Normal 43.1 LAB MCV 80.0-98.0 fL MCV Normal 93.9 LAB MCH 26.0-34.0 pg MCH Normal 31.5 LAB MCHC 32.0-36.0 % MCHC Normal 33.6 LAB RDW 11.5-14.5 % RDW Normal 13.6 LAB PLT 140-440 10*3/uL Platelet Normal 260 LAB MPV 7.4-10.4 fL Low MPV 7.1 LAB GRAN% 40.0-80.0 % Granulocytes Normal 66.7 LAB LYMP% 20.0-40.0 % Lymphocytes Normal 23.8 LAB MONO% 2.0-10.0 % Monocytes Normal 8.2 LAB EOS% 1.0-6.0 % Low Eosinophils 0.7 LAB BAS% 0.0-2.0 % Basophils Normal 0.6 LAB ANC 1.8-7.0 10*3/uL Abs Normal Neutrophile Cnt 5.6 LAB ALC 1.0-4.3 10*3/uL Abs Lymph Cnt Normal 2.0 LAB AMC 0.0-0.8 10*3/uL Abs Monocyte Normal Cnt 0.7 LAB AEC 0.0-0.5 10*3/uL Abs Eosin Cnt Normal 0.1 LAB ABC 0.0-0.2 10*3/uL Abs Baso Cnt Normal 0.0 Performed By: #### HEMDF, BMP3 #### [facility] [address] [place] [address] BASIC METABOLIC PANEL Collected: 10/05/2017 Status: F Source: [facility] 12:21 PM SYSTEM REPOSITORY TYPE CODE TESTS RESULT OUT OF RANGE REFERENCE UNITS LAB NA3 137-145 mmol/L Sodium Normal 140 LAB K3 3.5-5.1 mmol/L Normal Potassium 3.6 LAB CL3 98-107 mmol/L Chloride Normal 103 LAB CO23 22-30 mmol/L Carbon Normal Dioxide 27 LAB ANIN3 NA Anion Gap 10 LAB GLUC3 70-100 mg/dL High Glucose 114 LAB BUN3 7-20 mg/dL Urea Normal Nitrogen 9 LAB CRET3 0.52-1.25 mg/dL Normal Creatinine 0.63 LAB GF3BR >60 mL/min eGFR > 60.0 LAB GF3WR >60 mL/min eGFR OTHER > 60.0 Result Comment: Source- MDRD equation with creatinine calibration to IDMS(NKDEP) eGFR not recommended for drug dose adjustment LAB CA3 8.4-10.4 mg/dL Normal Calcium 9.0 Performed By: #### HEMDF, BMP3 #### [facility] [address] [place] [address] URINALYSIS,MACRO Collected: 10/05/2017 Status: F Source: [facility] 12:21 PM SYSTEM REPOSITORY TYPE CODE TESTS RESULT OUT OF REFERENCE UNITS RANGE LAB APPUR Clear NA Appearance CLEAR LAB COLUR Lt. Yellow NA Color YELLOW LAB USG 1.005-1.030 NA Specific Normal [place],Urine 1.016 LAB UPH 5.0-8.0 NA pH,Urine Normal 7.0 LAB ULUK Negative NA Leukocytes NEG LAB UNIT Negative NA Nitrites NEG LAB UPRO Negative mg/dL Total Protein,Urine NEG LAB UGLU Negative mg/dL Glucose,Urine NEG LAB UKET Negative mg/dL Ketone,Urine NEG LAB UURO 0-1 mg/dL Urobilinogen 0.2 LAB UBIL Negative NA Bilirubin,Ur NEG LAB UBLD Negative {RBC}/uL Occult Blood,Ur NEG Performed By: #### UAMAC #### [facility] [address] [facility] [place] [place] [address] Observed: 10/05/2017 Status: F Source: [facility] CULTURE URINE 12:21 PM SYSTEM REPOSITORY Order Comment: Specimen Source Comment:Urine, clean catch CULTURE URINE --> Status: F No growth (<1,000 CFU/ml). Performed By: #### C/UR #### Lost My Name [facility] [address] [place] [address] XR CHEST 2 VIEWS Observed: 09/30/2017 Status: F Source: [facility] 1:26 PM [facility] REPOSITORY ORIGINAL XR CHEST 2 VIEWS CLINICAL STATEMENT: Chest Pain. COMPARISON: 04/22/2017 FINDINGS: The cardiomediastinal contours are normal. There is no consolidation, vascular congestion, pleural effusion, or pneumothorax. No displaced fractures are identified. IMPRESSION: No acute radiographic findings. Interpreted By: Nimo Bonilla MD Preliminary Report By: Nimo Bonilla MD Electronically Signed By: Nimo Bonilla MD Dictated Date: 09/30/2017 1:32:17 PM Prelim Date: 09/30/2017 1:32:17 PM Sign Date: 09/30/2017 1:32:37 PM CBC Collected: 09/30/2017 Status: F Source: [facility] 1:11 PM [facility] REPOSITORY TYPE CODE TESTS RESULT OUT OF REFERENCE UNITS RANGE LAB WBC(LOINC) 4.60-10.80 10 3/mcL WBC 8.70 LAB RBCCT(LOINC 4.04-6.13 10 6/mcL ) RBC 4.96 LAB HGB(LOINC) 14.0-18.0 G/dL Hgb 15.7 LAB HCT(LOINC) 42.0-52.0 % Hct 45.0 LAB MCV(LOINC) 80.0-94.0 fL MCV 90.6 LAB MCH(LOINC) 27.0-31.2 pg High MCH 31.7 LAB MCHC(LOINC) 31.8-35.4 G/dL MCHC 35.0 LAB RDW(LOINC) 11.5-14.5 % RDW 13.0 LAB PLT(LOINC) 130-400 10 3/mcL Platelet 301 LAB MPV(LOINC) 7.4-10.4 fL Low MPV 6.8 Performed By: #### CBC, ADIFF, ANEU, LIP, CMP, GFR #### [place] [address] .AUTO DIFF Collected: 09/30/2017 Status: F Source: [facility] 1:11 PM [facility] REPOSITORY TYPE CODE TESTS RESULT OUT OF REFERENCE UNITS RANGE LAB PORSHA(LOINC) 37.0-80.0 % Neutrophil % 58.0 LAB LYM(LOINC) 10.0-50.0 % Lymphocyte % 31.1 LAB MON(LOINC) 1.7-13.0 % Monocyte % 9.7 LAB EO(LOINC) 0.0-7.0 % Eosinophil % 0.6 LAB BAS(LOINC) 0.0-2.5 % Basophil % 0.6 LAB ABLYM(LOIN 0.77-3.85 10 3/mcL C) Lymphocyte, 2.70 Absolute LAB NAIDR(LOINC 0.15-1.00 10 3/mcL ) Monocyte, 0.80 Absolute LAB AEOS(LOINC 0.00-0.40 10 3/mcL ) Eosinophil, 0.10 Absolute LAB ABAS(LOINC 0.00-0.19 10 3/mcL ) Basophil, 0.10 Absolute Performed By: #### CBC, ADIFF, ANEU, LIP, CMP, GFR #### [place] [address] .NEUABS Collected: 09/30/2017 Status: F Source: [facility] 1:11 [facility] REPOSITORY TYPE CODE TESTS RESULT OUT OF REFERENCE UNITS RANGE LAB ANEU(LOINC) 2.85-6.16 10 3/mcL Neutrophil, 5.00 Absolute Performed By: #### CBC, ADIFF, ANEU, LIP, CMP, GFR #### [place] [address] LIP Collected: 09/30/2017 Status: F Source: [facility] 1:11 [facility] REPOSITORY TYPE CODE TESTS RESULT OUT OF REFERENCE UNITS RANGE LAB LIP(LOINC) 8-78 IU/L Lipase Level 39 Performed By: #### CBC, ADIFF, ANEU, LIP, CMP, GFR #### [place] [address] CMP Collected: 09/30/2017 Status: F Source: [facility] 1:11 PM [facility] REPOSITORY TYPE CODE TESTS RESULT OUT OF REFERENCE UNITS RANGE LAB GLU(LOINC) 70-105 mg/dL Glucose High Level 128 LAB NA(LOINC) 136-146 mEq/L Low Sodium Level 135 LAB K(LOINC) 3.5-5.1 mEq/L Potassium Level 3.5 LAB CL(LOINC) 98-107 mEq/L Low Chloride 97 LAB CO2(LOINC) 22-29 mEq/L CO2 28 LAB EBAL(LOINC mEq/L ) Electrolyte Balance 10.0 LAB BUN(LOINC) 7.0-18.0 mg/dL BUN 7.5 LAB CRE(LOINC) 0.6-1.2 mg/dL Creatinine Lvl (s) 0.8 LAB BC(LOINC) 7-27 ratio BUN/Creatinine 9 Ratio LAB CA(LOINC) 8.4-10.2 mg/dL Calcium Lvl 9.1 LAB PROT(LOINC 6.0-8.3 G/dL ) Total Protein 6.9 LAB ALB(LOINC) 3.5-5.0 G/dL Albumin Level 4.3 LAB GLB(LOINC) G/dL Globulin 2.6 LAB AG(LOINC) 1.1-2.5 ratio A/G Ratio 1.7 LAB BILT(LOINC 0.2-1.0 mg/dL ) Bili Total 0.3 LAB AP(LOINC) 40-135 IU/L Alk Phos 77 LAB AST(LOINC) 10-40 IU/L AST/SGOT 18 LAB ALT(LOINC) 10-35 IU/L ALT/SGPT 15 Performed By: #### CBC, ADIFF, ANEU, LIP, CMP, GFR #### [place] [id number] .GFR Collected: 09/30/2017 Status: F Source: [email or web address] 1:11 PM [facility] REPOSITORY TYPE CODE TESTS RESULT OUT OF REFERENCE UNITS RANGE LAB GFRAA(LOINC ml/min/1.73 ) sqm GFR 116 Green[place]ic Result Comment: GFR Population mean for , Non- Americans Ages 20-29 = 116 mL/min/1.73 sq.m. Ages 30-39 = 107 mL/min/1.73 sq.m. Ages 40-49 = 99 mL/min/1.73 sq.m. Ages 50-59 = 93 mL/min/1.73 sq.m. Ages 60-69 = 85 mL/min/1.73 sq.m. Ages 70+ = 75 mL/min/1.73 sq.m. Chronic Kidney Disease: Less than 60 mL/min/1.73 square meters End Stage Renal Disease: Less than 15 mL/min/1.73 square meters LAB GFRNO(LOINC) ml/min/1.73sqm GFR Non- >60 Result Comment: GFR Population mean for , Non- Americans Ages 20-29 = 116 mL/min/1.73 sq.m. Ages 30-39 = 107 mL/min/1.73 sq.m. Ages 40-49 = 99 mL/min/1.73 sq.m. Ages 50-59 = 93 mL/min/1.73 sq.m. Ages 60-69 = 85 mL/min/1.73 sq.m. Ages 70+ = 75 mL/min/1.73 sq.m. Chronic Kidney Disease: Less than 60 mL/min/1.73 square meters End Stage Renal Disease: Less than 15 mL/min/1.73 square meters Performed By: #### CBC, ADIFF, ANEU, LIP, CMP, GFR #### [facility] [address] [address] UA Collected: 09/30/2017 Status: F Source: [facility] 1:11 PM [facility] REPOSITORY TYPE CODE TESTS RESULT OUT OF RANGE REFERENCE UNITS LAB SPCUA(KENDRICK NC) UA Specimen Type Clean Catch LAB CLRUA(KENDRICK NC) UA Color Yellow LAB APPUA(KENDRICK Clear NC) UA Appear Clear LAB SGUA(LOIN C) UA Spec Unknown Grav 1.010 LAB GLUA(LOIN Negative mg/dL C) UA Glucose Negative LAB BILUA(KENDRICK Negative NC) UA Bili Negative LAB KETUA(KENDRICK Negative mg/dL NC) UA Ketones Negative LAB BLDUA(KENDRICK Negative NC) UA Blood Negative LAB PHUA(LOIN C) UA pH 7.5 LAB PROUA(KENDRICK Negative mg/dL NC) UA Protein Negative LAB UROUA(KENDRICK E.U./dL NC) UA Urobilinogen 0.2 LAB NITUA(KENDRICK Negative NC) UA Nitrite Negative LAB LEUUA(KENDRICK Negative NC) UA Leuk Est Negative Performed By: #### UA, UAMICAO #### [facility] [place], [place] [address] .URINALYSIS MICROSCOPIC Collected: 09/30/2017 Status: F Source: [facility] 1:11 PM [facility] REPOSITORY TYPE CODE TESTS RESULT OUT OF REFERENCE UNITS RANGE LAB WBCUA(LOIN None Seen /hpf C) UA WBC None Seen LAB RBCUA(LOIN None Seen /hpf C) UA RBC None Seen LAB EPIUA(LOIN None Seen /hpf C) UA Squam Epithelial None Seen Performed By: #### UA, UAMICAO #### [address], [place] [address] URINALYSIS Collected: 09/29/2017 Status: F Source: [facility] 4:44 PM [facility] REPOSITORY TYPE CODE TESTS RESULT OUT OF REFERENCE UNITS RANGE LAB URINALYSIS (LOINC) URINALYSIS Result Comment: URINALYSIS LAB Specimen Type(LOINC) Specimen Void Type LAB Color(LOINC) NORMAL: YELLOW Color p.yel LAB Clarity(LOINC) NORMAL: CLEAR Clarity clear LAB ph(LOINC) NORMAL: 5.0-8.0 ph 7 LAB Protein(LOINC) NORMAL: NEGATIVE Protein NEG LAB Glucose(LOINC) NORMAL: NORMAL Glucose NORM LAB Ketone(LOINC) NORMAL: NEGATIVE Ketone NEG LAB Bilirubin(LOINC) NORMAL: NEGATIVE Bilirubin NEG LAB Blood(LOINC) NORMAL: NEGATIVE Blood NEG LAB Urobilinog(LOINC) NORMAL: NORMAL Urobilinog NORM LAB Sp Quin[place](LOINC) NORMAL: 1.010-1.030 Sp [place] 1.005 Low LAB Nitrite(LOINC) NORMAL: NEGATIVE Nitrite NEG LAB Leukocytes(LOINC) NORMAL: NEGATIVE Leukocytes NEG LAB Microscopic(LOINC ) Microscopic NOT INDICATED Performed By: #### [id number] #### [facility],[address] [place] [address] ED NOTE Observed: 09/27/2017 Status: COMPLETED Source: [place] 12:24 PM [facility] REPOSITORY HNO ID: [id number] Author: Brent (Rn) KIMBERLEE Hong Service: Emergency Medicine Author Type: Registered Nurse Type: ED Notes Filed: 09/27/2017 12:25 PM Note Text: Went to pt's room with discharge paperwork. Pt not in room, eloped. No IV present, pt left unit in stable condition. ED NOTE Observed: 09/27/2017 Status: COMPLETED Source: [place] 11:08 AM [facility] REPOSITORY HNO ID: [id number] Author: Brent (Rn) KIMBERLEE Hong Service: Emergency Medicine Author Type: Registered Nurse Type: ED Notes Filed: 09/27/2017 11:30 AM Note Text: Assumed care of patient. Report from KIMBERLEE Brown. Patient presents to ER for urinary retention. Pt states ongoing symptoms since hernia repair in 05/2016, has been seen multiple times, states surgeon wrote letter stating that he will no longer see pt. Patient is alert and oriented X 3. NAD, ABC's intact, respirations even and unlabored, CORTES. Skin acyanotic, warm and dry. Oriented to room and call light placed in reach. Side rails up x2, bed low AND locked, safety measures initiated. Bladder scan completed, 79 mL. Plan of Care for patient: -Monitor vital signs -Monitor pain level -Monitor patient's status for acute changes and notify LIP as needed -Maintain patient safety and comfort -Maintain bed low and locked, with call light within reach -Await further orders and disposition ED PROV NOTE Observed: 09/27/2017 Status: COMPLETED Source: [place] 10:47 AM [facility] REPOSITORY HNO ID: [id number] Author: Myles Sanchez MD Service: Emergency Medicine Author Type: Physician Type: ED Provider Notes Filed: 09/27/2017 3:26 PM Note Text: ED Provider Note Patient Name: Oliver Cunningham SERVICE DATE: 09/27/17 History Patient presents with: Urinary Retention: States that he had hernia repair 2017, and since has had bowel/bladder issues HPI 57-year-old man reports to [facility] Emergency Department for problems he has had since he had bilateral hernia repair in May 2016. His problems include chronic abdominal pain, low back pain, difficulty urinating, and loose bowels. He has a believe that another surgery will fix all these issues. He has seen his urologist multiple times, and was recently fired from their practice. In addition, he has seen urologists in other practices including flying to [place] and [place]. He reports that everyone he has seen has been unwilling to do further surgery. He is unsure what his hopes for today's ED visit are. PAST MEDICAL HISTORY Diagnosis Date - Black spider bite 10/2007 - Cervical radiculopathy - CHI (closed head injury) 20 years ago. 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 PAST SURGICAL HISTORY Procedure Laterality Date - AMPUTATION FINGER/THUMB 05/29/10 Traumatic, Right middle, ring and distal - BACK SURGERY HX - CHOLECYSTECTOMY HX - COLONOSCOPY 11/20 - COLONOSCOPY 03/2016 - EGD W/O OR W/BRUSH/WASH 06/24/13 EGD - HERNIA REPAIR HX 2013 umbilical - HERNIA REPAIR HX Bilateral 05/2016 Bilateral Inguinal Hernia repair - ORTHOPEDICS SURGERY HX - PAST SURGICAL HISTORY OF 1993 lumbar diskectomy - REMOVAL GALLBLADDER 1998 laparoscopic - REMOVE TONSIL AND ADENOI UNDER AGE 13 remote - ROTATOR CUFF REPAIR 05/24/11 Right Shoulder - ROTATOR CUFF REPAIR 07/10/11 Left shoulder - TONSILLECTOMY HX FAMILY HISTORY Problem Relation Age of Onset - Emphysema Mother - Cancer Mother lung/glioblastoma(Brain) - Thyroid Mother - Heart Mother - charcot samir tooth [OTHER] Mother - GBM [OTHER] Mother - Coronary Artery Disease Father MA and CABG - MS [OTHER] Daughter - Lipids Paternal Grandfather - Lipids Brother - Psychiatry Sister - Kidney Disease Daughter - Psychiatry Daughter bipolar disorder Social History Social History Main Topics - Smoking status: Current Every Day Smoker Packs/day: 0.25 Years: 45.00 Types: Cigarettes Start date: 04/08/1977 - Smokeless tobacco: Never Used - Alcohol use No Comment: none - Drug use: No - Sexual activity: Not Currently Partners: Female ALLERGIES Allergen Reactions - Hydrocodone GI Upset Feels like bleeding Inside stomach - Lyrica [Pregabalin] Intolerance - Aubagio [Teriflunom* Other: See Comments Passed out - Bentyl [Dicyclomine* Other: See Comments - Celexa [Citalopram * Other: See Comments Terrible headaches. - Copaxone [Glatirame* Rash, Itching - Cymbalta [Duloxetin* Other: See Comments chest pain, abnormal sensation/feeling in chest - Erythromycin Other: See Comments turns everything to stone inside my bowels - Fenofibrate Intolerance chest pain and numbness - Hctz [Amiloride-Hyd* Other: See Comments Tripping, falling, no sense of balance - Lipitor [Atorvastat* Other: See Comments ruq PAIN - Miralax [Polyethyle* Swelling, GI Upset Swollen abdomen - go lightly - Mobic [Meloxicam] Itching - Morphine Other: See Comments Side pain - Penicillins Rash high fevers - Pravastatin Other: See Comments Muscle soreness - Prilosec [Omeprazol* Other: See Comments increased abdominal pressure, travels up to the chest area - Reglan [Metoclopram* GI Upset Also gives chest pain - Welchol [Colesevela* Other: See Comments Abdomen and chest pain - Xifaxan [Rifaximin] Other: See Comments Insomnia Review of Systems Constitutional: Negative for appetite change and fever. HENT: Negative for sore throat. Respiratory: Negative for chest tightness. Cardiovascular: Negative for chest pain. Gastrointestinal: Positive for abdominal pain and diarrhea. Genitourinary: Positive for difficulty urinating. Musculoskeletal: Positive for back pain. Skin: Negative. Neurological: Negative for headaches. Hematological: Negative. Psychiatric/Behavioral: The patient is nervous/anxious. Physical Exam BP 132/87 Pulse 110 Temp (Src) 97.7 (Oral) Resp 18 Ht 5' 11 (1.80m) Wt 182 lb (82.6kg) SpO2 100% BMI 25.40 kg/(m2). Physical Exam Constitutional: He is oriented to person, place, and time. He appears well-developed and well-nourished. HENT: Mouth/Throat: Oropharynx is clear and moist. Cardiovascular: Normal rate and regular rhythm. Pulmonary/Chest: Effort normal and breath sounds normal. Abdominal: Soft. Bowel sounds are normal. He exhibits no distension. There is no tenderness. There is no guarding. Musculoskeletal: He exhibits no edema or tenderness. Neurological: He is alert and oriented to person, place, and time. Skin: Skin is warm and dry. Psychiatric: He has a normal mood and affect. Nursing note and vitals reviewed. Diagnostic Testing ED Labs Ordered and Reviewed - No data to display bladder scan 79cc Procedures Medical Decision Making MDM no emergency medical condition is present today ED Course / Clinical Impression Clinical Impressions as of Sep 27 1516 Chronic pain syndrome Plan The patient was DISCHARGED: Counseled patient regarding suspected diagnosis AND need for follow-up. Discharged home with verbal and written instructions. They were instructed to return as needed for persistent or worsening symptoms or any new concerns. Condition at time of disposition: stable Patient may make an appt with Urology here at [facility]. SIGNATURE: MD Myles Covarrubias MD 09/27/[address] ABDOMEN/PELVIS W/ Observed: 09/26/2017 Status: F Source: [facility] CONTRAST 3:26 PM SYSTEM REPOSITORY Patient Name: OLIVER CUNNINGHAM CT Exam Date/Time 09/26/2017 14:27:[address] Abdomen/Pelvis w/ IV Contrast (IV Onl Ordering Physician DO ROSARIO MICHAEL J. Accession Number [id number] CPT4 Codes 15340 (CT Abdomen/Pelvis w/ IV Contrast (IV Onl), Q9967 () Reason For Exam ABDOMINAL PAIN Report CT scan abdomen: 09/26/[address] scan pelvis: 09/26/2017 . Clinical Information: Abdominal pain . CT scan abdomen: CT scans of the abdomen were performed at 3 mm slice thickness with no oral or intravenous contrast as requested. Comparison was made to a prior study 08/04/2017. Limited slices through the lower lung menjivar reveal no pleural or parenchymal abnormalities in the lung bases. Without the administration of oral or intravenous contrast, evaluation of solid and hollow organs is limited. The liver, spleen and pancreas are grossly normal. No free peritoneal fluid or air is seen. No retroperitoneal lymphadenopathy is identified. There is a cyst in the left kidney. The kidneys are otherwise within normal limits without evidence of hydronephrosis. No abnormal calcifications are identified in the kidneys or along the course of the ureters. CT scan pelvis: CT scans the pelvis were performed at 3 mm slice thickness with no oral or intravenous contrast as requested. No abnormal loops of bowel are identified. No inflammatory changes in the mesentery are seen. The appendix was isolated as a separate structure and appears unremarkable. No pelvic mass lesions, fluid collections or lymphadenopathy is seen. No abnormal calcifications are identified to suggest distal ureteral calculi. Impression: Study limited due to lack of contrast. No abnormalities identified. No significant interval change from prior study. Report Dictated on Final Dictated: 09/26/2017 3:26 pm Dictating Physician: MD CUNHA RISA Signed Date and Time: 09/26/2017 3:29 pm Signed by: MD CUNHA RISA Transcribed Date and Time: 09/26/2017 3:26 URINALYSIS,MACRO Collected: 09/26/2017 Status: F Source: [facility] 2:17 PM SYSTEM REPOSITORY TYPE CODE TESTS RESULT OUT OF REFERENCE UNITS RANGE LAB APPUR Clear NA Appearance clear LAB COLUR Lt. Yellow NA Color yellow LAB USG 1.005-1.030 NA Specific Normal [place],Urine 1.020 LAB UPH 5.0-8.0 NA pH,Urine Normal 5.0 LAB ULUK Negative NA Leukocytes NEG LAB UNIT Negative NA Nitrites NEG LAB UPRO Negative mg/dL Total Protein,Urine NEG LAB UGLU Negative mg/dL Glucose,Urine NORM LAB UKET Negative mg/dL Ketone,Urine Trace LAB UURO 0-1 mg/dL Urobilinogen NORM LAB UBIL Negative NA Bilirubin,Ur NEG LAB UBLD Negative {RBC}/uL Occult Blood,Ur NEG Performed By: #### UAMAC #### [facility] [address] [place] [phone] Observed: 09/26/2017 Status: F Source: [facility] CULTURE URINE 2:17 PM SYSTEM REPOSITORY Order Comment: Specimen Source Comment:Urine, clean catch CULTURE URINE --> Status: F Normal urogenital maritza present. Performed By: #### C/UR #### [facility] [address] [place] [phone] CR CHEST PORTABLE Observed: 09/26/2017 Status: F Source: [facility] 1:25 PM SYSTEM REPOSITORY Patient Name: OLIVER CUNNINGHAM Diagnostic Radiology Exam Date/Time 09/26/2017 13:14:32 EDT Exam CR Chest Portable Ordering Physician DO ROSARIO MICHAEL J. Accession Number [id number] CPT4 Codes 41333 () Reason For Exam cough Report Portable chest 09/26/2017: Clinical Information: Cough. Findings: A single AP portable view of the chest was obtained at 1247 hours. Comparison was made to the prior study 08/07/2017. The trachea is midline. The heart is not enlarged. The lungs are hyperinflated and hyperlucent consistent with an element of underlying obstructive lung disease. No focal areas of consolidation or volume loss are seen. There are no pleural effusions. The pulmonary vasculature does not appear congested. The visualized bony structures are intact. Impression: No acute process. Report Dictated on Final Dictated: 09/26/2017 1:25 pm Dictating Physician: MD CUNHA RISA Signed Date and Time: 09/26/2017 1:25 pm Signed by: MD CUNHA RISA Transcribed Date and Time: 09/26/2017 1:25 HEMOGRAM W/ AUTODIFF Collected: 09/26/2017 Status: F Source: [facility] 12:25 PM SYSTEM REPOSITORY TYPE CODE TESTS RESULT OUT OF REFERENCE UNITS RANGE LAB IWBC 3.6-10.7 10*3/uL WBC Normal 9.1 LAB RBC 4.40-5.90 10*6/uL RBC Normal 4.94 LAB HGB 13.0-18.0 g/dL Hemoglobin Normal 15.7 LAB HCT 40.0-52.0 % Hematocrit Normal 46.4 LAB MCV 80.0-98.0 fL MCV Normal 93.9 LAB MCH 26.0-34.0 pg MCH Normal 31.8 LAB MCHC 32.0-36.0 % MCHC Normal 33.9 LAB RDW 11.5-14.5 % RDW Normal 13.2 LAB PLT 140-440 10*3/uL Platelet Normal 266 LAB MPV 7.4-10.4 fL Low MPV 7.2 LAB GRAN% 40.0-80.0 % Granulocytes Normal 60.9 LAB LYMP% 20.0-40.0 % Lymphocytes Normal 29.0 LAB MONO% 2.0-10.0 % Monocytes Normal 9.0 LAB EOS% 1.0-6.0 % Low Eosinophils 0.4 LAB BAS% 0.0-2.0 % Basophils Normal 0.7 LAB ANC 1.8-7.0 10*3/uL Abs Normal Neutrophile Cnt 5.5 LAB ALC 1.0-4.3 10*3/uL Abs Lymph Cnt Normal 2.6 LAB AMC 0.0-0.8 10*3/uL Abs Monocyte Normal Cnt 0.8 LAB AEC 0.0-0.5 10*3/uL Abs Eosin Cnt Normal 0.0 LAB ABC 0.0-0.2 10*3/uL Abs Baso Cnt Normal 0.1 Performed By: #### HEMDF, BMP3, MG3, LFT3, LIPA3 #### [facility] [address] [place] [phone] BASIC METABOLIC PANEL Collected: 09/26/2017 Status: F Source: [facility] 12:25 PM SYSTEM REPOSITORY TYPE CODE TESTS RESULT OUT OF RANGE REFERENCE UNITS LAB NA3 137-145 mmol/L Sodium Normal 138 LAB K3 3.5-5.1 mmol/L Normal Potassium 3.7 LAB CL3 98-107 mmol/L Chloride Normal 101 LAB CO23 22-30 mmol/L Carbon Normal Dioxide 28 LAB ANIN3 NA Anion Gap 9 LAB GLUC3 70-100 mg/dL High Glucose 110 LAB BUN3 7-20 mg/dL Urea Normal Nitrogen 10 LAB CRET3 0.52-1.25 mg/dL Normal Creatinine 0.63 LAB GF3BR >60 mL/min eGFR > 60.0 LAB GF3WR >60 mL/min eGFR OTHER > 60.0 Result Comment: Source- MDRD equation with creatinine calibration to IDMS(NKDEP) eGFR not recommended for drug dose adjustment LAB CA3 8.4-10.2 mg/dL Normal Calcium 9.3 Performed By: #### HEMDF, BMP3, MG3, LFT3, LIPA3 #### [facility] [address] [place] [phone] MAGNESIUM Collected: 09/26/2017 Status: F Source: [facility] 12:25 PM SYSTEM REPOSITORY TYPE CODE TESTS RESULT OUT OF RANGE REFERENCE UNITS LAB MG3 1.6-2.3 mg/dL Normal Magnesium 1.8 Performed By: #### HEMDF, BMP3, MG3, LFT3, LIPA3 #### [facility] [address] [place] [phone] HEPATIC FUNCTION Collected: 09/26/2017 Status: F Source: [facility] 12:25 PM SYSTEM REPOSITORY TYPE CODE TESTS RESULT OUT OF RANGE REFERENCE UNITS LAB ALB3 3.5-5.0 g/dL Albumin, Normal Serum 4.7 LAB TP3 6.3-8.2 g/dL Total Normal Protein 7.3 LAB BILT3 0.2-1.3 mg/dL Normal Bilirubin,Total 0.5 LAB BILD3 0.0-0.3 mg/dL Normal Bilirubin,Direct 0.0 LAB ALKP3 38-126 U/L Alkaline Normal Phosphatase 69 LAB ALT3 13-69 U/L ALT (SGPT) Normal 31 LAB AST3 15-46 U/L AST (SGOT) Normal 26 Performed By: #### HEMDF, BMP3, MG3, LFT3, LIPA3 #### [facility] [address] [phone] LIPASE Collected: 09/26/2017 Status: F Source: [facility] 12:25 PM SYSTEM REPOSITORY TYPE CODE TESTS RESULT OUT OF RANGE REFERENCE UNITS LAB LIPA3 23-300 [IU]/L Normal Lipase 100 Performed By: #### HEMDF, BMP3, MG3, LFT3, LIPA3 #### [facility] [address] [place] [phone] ED DOC Observed: 09/24/2017 Status: UNK Source: [facility] 10:22 AM [facility], [facility] This is a preliminary report only, as the practitioner review and authentication has not occurred. ED DOC Observed: 09/24/2017 Status: UNK Source: [facility] 10:22 AM [facility] REPOSITORY PHYSICIAN ASSESSMENT RECORDS : FlexChartData Event Time: 09/27/2017 00:30 Status: Signed [facility] Oliver Hendersoncam [[id number]] Attending Physician 57 / M / 1960 Chart (V2b) Chart created at 09/26/2017 23:51 by Armand Benavidez Chart closed at 09/26/2017 23:59 Entry in Emergency Department at 09/24/2017 07:31, departure at 09/24/2017 10:22 Patient Name: Oliver Cunningham Record Number: [id number] Date: 09/26/2017 23:51 Entered Department at: 09/24/2017 07:31 Patient Seen at: 09/24/2017 07:35 Historian: Patient PCP: *None,. Chief Complaint:unable to urinate since yesterday Triage Note reviewed and Initial Vital Signs reviewed. Temperature: 98.2 F (36.8 C). Pulse: 102. Respiratory Rate: 18. Blood-pressure: 142/85. Oxygen Saturation: 96% room air; Normal. History of Present Illness: 57 Year old male comes in for further evaluation of difficulty urinating since last night. He reports a history of MS. He states he has been having this problem since inguinal hernia surgery in May 2016. He also complains of abdominal pain which is chronic for him. He thinks he is having a problem with the mesh. He has seen 20 surgeons for this complaint and none of them will do anything about it. He has [facility] PATIENT NAME: OLIVER CUNNINGHAM [address] [facility] [address] MEDICAL REC #: [id number] [place] [address] EMERGENCY DEPARTMENT CHART EMERGENCY DEPARTMENT PHYSICIAN been to the ED multiple times for the same complaint. Symptoms are no different than usual. He has no other complaints. HPI Elements: Onset: 15 Months ago; Timing: Gradual; Location: see HPI; Quality: Aching and Sharp; Severity: maximum Severe [9], now Severe [9]; Context:(see HPI); Exacerbated by: Nothing; Alleviated by: Nothing Associated symptoms: see HPI. Review of Systems. All other systems reviewed and negative.. Past History, Medications, Allergies, Social History and Family History reviewed in nurses note. Medications: Reviewed RN Note. LORAZEPAM 0.5MG PO PRN BID , VENTOLIN HFA 90MCG/ACTUATION INHALATION AEROSOL - INH DAILY , VERIFIED 09/24/17 Allergies: Reviewed RN Note PCN(Rash), mobic(Rash), lyrica(agitation of nerves), cymbalta(palpitations), abaugio(plugs arteries), copaxone(Rash), hydrochlorothiazide(syncope), Reglan(chest pain), trulance(Unknown) Social History: Reviewed RN Note. Family History: Reviewed RN Note Physical Examination: General: Alert and Well Developed HEENT: Normal ENT inspection. Head: Atraumatic. Eyes: Lids Normal; PERRL; . Ear: Normal auricle. Nose: Normal inspection. Oropharynx / Throat: Normal Pharynx. Neck: Supple Respiratory: No Resp Distress and Normal Breath Sounds Cardio-Vascular: No murmur and RRR Abdomen: Normal Bowel Sounds and Soft; mildly tender in lower abdomen. no guarding or rebound. Back: Non-tender Extremity: No edema and Normal Equal pulses Neurological: Alert, Oriented X3 and No Gross Weakness Skin: No rash Psychological: Mood/Affect Normal [facility] PATIENT NAME: OLIVER CUNNINGHAM [address] [facility] [address] MEDICAL REC #: [id number] [place] [address] EMERGENCY DEPARTMENT CHART EMERGENCY DEPARTMENT PHYSICIAN UA COMPLETE, information as of 09/24/2017, 9:31 am + +---------+---------+---------+---------+-------- + + +---------+---------+---------+---------+-------- + + +---------+---------+---------+---------+-------- + + +---------+---------+---------+---------+-------- + + +---------+---------+---------+---------+-------- + Medical Decision Making The patient has remained stable in the emergency department with no further complaints. The patient only had 38mL on bladder scan. He is not retaining. He was able to provide a urine specimen which was unremarkable. I reviewed previous records. He had a CT of the abdomen and pelvis done recently which showed no acute abnormalities. I do not think repeat imaging is necessary at this time. These symptoms are chronic for him and no different than usual. The patient can be discharged home at this time. He should follow up with the surgeon who did the procedure. I will refer him to urology for follow up as well. He was told to return to the ED with any concerns. Additional Information: Old records reviewed (previous ED visits). Discussed Results, Diagnosis and Follow-Up with Patient. Clinical Impression: [facility] PATIENT NAME: OLIVER CUNNINGHAM [address] [facility] [address] MEDICAL REC #: [id number] [place] [address] EMERGENCY DEPARTMENT CHART EMERGENCY DEPARTMENT PHYSICIAN 1. chronic abdominal pain Disposition: Discharged *Home. Condition: Stable MSE completed. I was the primary ED attending.. : Discharge Report Event Time: 09/24/2017 09:52 ===DISCHARGE REPORT=== : FlexChartData Event Time: 09/27/2017 00:30 : Discharge Report Event Time: 09/24/2017 09:52 Status: Draft Reasons to Return to the ER: You must return to the ER for any new, worsening or changing symptoms, or if you feel more ill or sick in any way. This is the most important thing to remember. Follow-up: The care you received in the ER was given on an emergency basis only, and it is often not possible to completely treat or diagnose a problem in a single ER visit. You must see your follow-up doctor for a recheck within a week unless you receive instructions with a different timeframe for follow-up. Please follow all your discharge instructions. Medications: Unless the ER doctor tells you differently, you should take all your regular medications and any new medications prescribed today. Because it is not possible for the ER doctor to review all of your medication side effects or interactions, you must review possible side effects and interactions with your pharmacist when you get your prescriptions filled. EKG and Radiology Results: [facility] PATIENT NAME: OLIVER CUNNINGHAM [address] [facility] [address] MEDICAL REC #: [id number] [place] [address] EMERGENCY DEPARTMENT CHART EMERGENCY DEPARTMENT PHYSICIAN A traveling clerk or radiologist will review any EKG or radiology results provided by the ER doctor. We will contact you if the results in the final EKG or radiology reports require a change in treatment. Culture Results: Cultures may have been ordered during your ER visit. We will contact you if the culture results require a change in treatment. Referrals: Most referrals to specialists come from the on-call list You should make your regular doctor aware of any referrals before you schedule the appointment so that they are aware and can make suggestions DIAGNOSIS: 1. chronic abdominal pain INSTRUCTIONS: Return to the ER if you develop worsening symptoms, any new symptoms, or any other concerns. UNLESS THE ER DOCTOR GIVES YOU OTHER INSTRUCTIONS, YOU MUST SEE YOUR FOLLOW-UP DOCTOR WITHIN 1 TO 2 DAYS FOR RECHECK. YOU MUST RETURN TO THE ER RIGHT AWAY FOR ANY OF THE FOLLOWING:Increasing painChange in the location of the painNew or increasing fever or chillsNew or increasing constipation or difficulty urinatingNew or increasing abdominal swelling or bloatingBlood appears in the stool, vomit or urineNew or increasing vomiting or diarrhea.New or increasing weakness or dizzinessEarly appendix infection is always a possibility and you must return if the pain moves to the lower right side of your abdomen REFERRAL [facility] ([facility]), [facility] PATIENT NAME: OLIVER CUNNINGHAM [address] [facility] [address] MEDICAL REC #: [id number] [place] [address] EMERGENCY DEPARTMENT CHART EMERGENCY DEPARTMENT PHYSICIAN Please call the above number to schedule a follow-up appointment. Genesis Desai MD (Urology), , fax: Please call the above number to schedule a follow-up appointment. 2-3 days MEDICATIONS We have given you these prescriptions that you must fill and start taking: None COMMENTS: Patient Satisfaction: Within the first few days after your visit, you will receive an email and/or phone call regarding your visit. We value your feedback, and would appreciate it if you would take the time to complete this short survey. If you receive a call, it will be between 6p and 8p. My signature below indicates that I have received and understand the oral instructions regarding my medical problem. I also acknowledge receipt of this written instruction sheet including a list of major tests and procedures ordered during my visit. I will arrange for follow-up care as indicated by these instructions and referrals. This signed original will be kept in my medical record. Your signature below indicates consent for Case Management to contact [facility] providers in an effort to meet your ongoing healthcare needs. This will allow forcontinuity of care once you leave the Emergency Department. This exchange of informationwill include, but not be limited to, disclosure of your patient information and possible release of [facility] PATIENT NAME: OLIVER CUNNINGHAM [address] [facility] [address] [facility] [address] MEDICAL REC #: [id number] [place] [address] EMERGENCY DEPARTMENT CHART EMERGENCY DEPARTMENT PHYSICIAN records. [employer]GRAPH[employer] Patient: OLIVER CUNNINGHAM Sex: M : 1960 Age: 57 yr Account No: [id number] Registration Date: 07:09/24/2017 Address: [address] [facility] Address: [place] [address] REGISTRATION ED Number: [id number] Marital Status: D Financial Class: MPPS TRIAGE Priority: 3 - Urgent Complaint: Urination, Unable to Stated Complaint: unable to urinate since yesterday Arrival Date: 09/24/2017 07:31 Triage Date: 09/24/2017 07:32 Mode of Arrival: *Privately Owned Vehicle Transfer From: * Home WC: N Language: Cypriot Transport: Ambulatory/Walk In BED A11 In: 09/24/2017 07:34:13 09/24/2017 07:34:13 KSE1 A11 (Removed From) Out: 09/24/2017 10:22:00 09/24/2017 10:22:00 MCS PROVIDERS [facility] PATIENT NAME: OLIVER CUNNINGHAM [address] [facility] [address] MEDICAL REC #: [id number] [place] [address] EMERGENCY DEPARTMENT CHART EMERGENCY DEPARTMENT PHYSICIAN MD Armand Benavidez Provider Contact: 09/24/2017 07:35:51 LRS End: KIMBERLEE BENAVIDEZ Provider Contact: 09/24/2017 07:42:29 MCS End: TRIAGE HISTORY ALLERGIES Allergic To: PCN - Rash 09/24/2017 07:34 KSE1 Allergic To: mobic - Rash 09/24/2017 07:34 KSE1 Allergic To: lyrica - agitation of nerves 09/24/2017 07:34 KSE1 Allergic To: cymbalta - palpitations 09/24/2017 07:34 KSE1 Allergic To: abaugio - plugs arteries 09/24/2017 07:34 KSE1 Allergic To: copaxone - Rash 09/24/2017 07:34 KSE1 Allergic To: hydrochlorothiazide - syncope 09/24/2017 07:34 KSE1 Allergic To: Reglan - chest pain 09/24/2017 07:34 KSE1 Allergic To: trulance - Unknown 09/24/2017 07:34 KSE1 CURRENT MEDS Name: LORAZEPAM 0.5MG PO PRN BID 09/24/2017 07:55 MCS Name: VENTOLIN HFA 90MCG/ACTUATION INHALATION AEROSOL - INH DAILY 09/24/2017 07:55 MCS Name: VERIFIED 09/24/17 09/24/2017 07:55 MCS ILLNESS [facility] PATIENT NAME: OLIVER CUNNINGHAM [address] [facility] [address] [facility] [address] MEDICAL REC #: [id number] [place] [address] EMERGENCY DEPARTMENT CHART EMERGENCY DEPARTMENT PHYSICIAN Illness: Emphysema 09/24/2017 07:34 KSE1 Illness: scleraderma 09/24/2017 07:34 KSE1 Illness: multiple sclerosis 09/24/2017 07:34 KSE1 PAST SURGERY HIST Surgery: Hernia Repair 09/24/2017 07:34 KSE1 Surgery: Cholecystectomy 09/24/2017 07:34 KSE1 Surgery: lower back 09/24/2017 07:34 KSE1 Surgery: bilateral shoulder 09/24/2017 07:34 KSE1 Surgery: Tonsillectomy 09/24/2017 07:34 KSE1 PAST SOCIAL HIST Social History: Communicates without difficulty 09/24/2017 07:34 KSE1 Social History: Alcohol - None 09/24/2017 07:34 KSE1 Social History: Recreational Drugs - None 09/24/2017 07:34 KSE1 Social History: Smoker-1/2 PPD 09/24/2017 07:34 KSE1 Social History: Denies Domestic Violence 09/24/2017 07:34 KSE1 Social History: Denies thoughts of self harm. 09/24/2017 07:34 KSE1 Social History: Have you traveled in the past month? Where denies 09/24/2017 07:34 KSE1 Social History: Have you traveled in the past month? Where NO 09/24/2017 07:34 KSE1 IMMUNIZATIONS Immunization: Flu Vaccine-no 09/24/2017 07:55 MCS SELF TREATMENT Aid: *No Treatment Prior to Arrival 09/24/2017 10:03 MCS [facility] PATIENT NAME: OLIVER CUNNINGHAM [address] [facility] [address] MEDICAL REC #: [id number] [place] [address] EMERGENCY DEPARTMENT CHART EMERGENCY DEPARTMENT PHYSICIAN TRIAGE TREATMENT Aid: *No Treatment Prior to Arrival 09/24/2017 10:03 MCS NURSING ASSESSMENT ASSESSMENT NOTES 09/24/2017 08:05 See triage note. mspsintact. c/o not urination since yesterday. states bilat flank pain since may 2016 stating ot have been seen by multiple specialist without confirmed dx. states discomfort started after bilat inguinal hernia sx. lungs cta bsx4 abd soft nontender to plap. skin warm pink n dry cap refill andlt; 1secs. 09/24/2017 08:07 MCS 09/24/2017 08:30 pt bladder scanned for urine residual, 38cc via bedside bladder scanner. dr benavidez notifed. 09/24/2017 08:30 MCS TREATMENT 09/24/2017 09:30 Staff/ Patient Interaction - Introduced self and assessed patients needs. 09/24/2017 10:08 MCS 09/24/2017 09:30 Staff/ Patient Interaction - Call light placed within reach. 09/24/2017 10:08 MCS 09/24/2017 09:30 Hourly Rounding - Rounding 09/24/2017 10:08 MCS Elimination/Toileting Y Pain 0 Position Comfortable Y Safe Environment Y Fall Risk Change N 09/24/2017 09:30 Patient Interaction - Allergy Band on Pt. 09/24/2017 10:08 MCS 09/24/2017 09:30 Patient Interaction - Name Band on Pt 09/24/2017 10:08 MCS [facility] PATIENT NAME: OLIVER CUNNINGHAM [address] [facility] [address] [facility] [address] MEDICAL REC #: [id number] [place] [address] EMERGENCY DEPARTMENT CHART EMERGENCY DEPARTMENT PHYSICIAN 09/24/2017 09:30 Primary DOC Guide - A. 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 Psychosocial Assessment 09/24/2017 10:08 [facility] Over the Last 2 weeks, how often have you had little interest or pleasure in doing things (0) Not at All Is Psychosocial Assessment Score 3 or more? If score is 3 or more please consult ED Navigator! No Total Psychosocial Assessment Score 0 Over the last 2 weeks, how often have you been feeling down, depressed or hopeless (0) Not at All 09/24/2017 10:17 Admit/Discharge - *Discharge instructions/tests andamp; procedures/med list reviewed and provided; prescriptions given to caregiver 09/24/2017 10:19 MCS 09/24/2017 10:17 Admit/Discharge - Ambulated with steady gait home 09/24/2017 10:19 MCS 09/24/2017 10:17 Admit/Discharge - Discharge infomation reviewed with pt 09/24/2017 10:19 MCS MEDICATIONS [facility] PATIENT NAME: OLIVER CUNNINGHAM [address] [facility] [address] MEDICAL REC #: [id number] [place] [address] EMERGENCY DEPARTMENT CHART EMERGENCY DEPARTMENT PHYSICIAN IV I AND O VITALS VS-ROUTINE Time: 09/24/2017 07:32 B/P: 142/85 - Right Upper Arm - Sitting - Machine Pulse: 102 - Monitor Resp: 18 Sa02: 96 Room Air Temp: 98.20 F - Temporal 09/24/2017 07:34 KSE1 VS-Pain Time: 09/24/2017 07:32 Pain Level: 0 09/24/2017 07:34 KSE1 VS-GCS Time: 09/24/2017 07:32 Visual: 4 Verbal: 5 Motor: 6 GCS Total: 15 09/24/2017 07:34 KSE1 VS-HT/WT Time: 09/24/2017 07:32 Ht: 180.3 cm Stated Weight: 82.6 kg Stated 09/24/2017 07:34 KSE1 VS-Visual Time: 09/24/2017 07:32 09/24/2017 07:34 KSE1 VS-FHT Time: 09/24/2017 07:32 09/24/2017 07:34 KSE1 VS-Notes Time: 09/24/2017 07:32 map: 108 09/24/2017 07:34 KSE1 VS-ROUTINE Time: 09/24/2017 10:04 B/P: 126/70 - Left Upper Arm - Lying - Machine Pulse: 91 - Gunstock Spray Unit Adjuster Resp: 18 Sa02: 98 Room Air 09/24/2017 10:05 MCS VS-Pain Time: 09/24/2017 10:04 Pain Level: 7 09/24/2017 10:05 MCS VS-GCS Time: 09/24/2017 10:04 Visual: 4 Verbal: 5 Motor: 6 GCS Total: 15 09/24/2017 10:05 MCS VS-HT/WT Time: 09/24/2017 10:04 09/24/2017 10:05 MCS VS-Visual Time: 09/24/2017 10:04 09/24/2017 10:05 MCS VS-FHT Time: 09/24/2017 10:04 09/24/2017 10:05 MCS VS-Notes Time: 09/24/2017 10:04 map 89 09/24/2017 10:05 MCS VS-ROUTINE Time: 09/24/2017 10:19 B/P: 119/86 - Left Upper Arm - Lying - Machine Pulse: 78 - Gunstock Spray Unit Adjuster Resp: 18 [facility] PATIENT NAME: OLIVER CUNNINGHAM [address] [facility] [address] MEDICAL REC #: [id number] [place] [address] EMERGENCY DEPARTMENT CHART EMERGENCY DEPARTMENT PHYSICIAN Sa02: 99 Room Air 09/24/2017 10:20 MCS VS-Pain Time: 09/24/2017 10:19 Pain Level: 5 09/24/2017 10:20 MCS VS-GCS Time: 09/24/2017 10:19 Visual: 4 Verbal: 5 Motor: 6 GCS Total: 15 09/24/2017 10:20 MCS VS-HT/WT Time: 09/24/2017 10:19 09/24/2017 10:20 MCS VS-Visual Time: 09/24/2017 10:19 09/24/2017 10:20 MCS VS-FHT Time: 09/24/2017 10:19 09/24/2017 10:20 MCS VS-Notes Time: 09/24/2017 10:19 map 97 09/24/2017 10:20 MCS ORDERS Discharge patient 09/24/2017 10:08 [facility] PATIENT NAME: OLVIER CUNNINGHAM [address] [facility] [address] MEDICAL REC #: [id number] [place] [address] EMERGENCY DEPARTMENT CHART EMERGENCY DEPARTMENT PHYSICIAN UA COMPLETE Collected: 09/24/2017 Status: F Source: [facility] 9:31 AM [facility] REPOSITORY Order Comment: [place]: M TYPE CODE TESTS RESULT OUT OF REFERENCE UNITS RANGE LAB L600.82692 UA COLOR Normal Yellow LAB L600.13751 CLEAR UA Normal APPEARANCE Clear LAB L600.51307 1.005-1.030 UA SPEC Normal GRAV 1.014 LAB L600.29677 UA PH Normal 5.0 LAB L600.02312 UA GLUCOSE Normal NEG LAB L600.34955 UA KETONE Normal NEGATIVE LAB L600.79758 UA Normal BILIRUBIN NEGATIVE LAB L600.37980 UA Normal UROBILINOGEN NEG LAB L600.97057 NEGATIVE UA PROTEIN Normal NEGATIVE LAB L600.12304 NEGATIVE UA BLOOD Normal NEGATIVE LAB L600.48450 NEGATIVE UA NITRITE Normal NEGATIVE LAB L600.23424 NEGATIVE UA LK Normal ESTERASE NEG Performed By: #### L600.82582 #### [facility] [address] [id number] # [phone] ED DOC Observed: 09/15/2017 Status: UNK Source: [facility] 11:57 PM [facility] REPOSITORY This is a preliminary report only, as the practitioner review and authentication has not occurred. ED DOC Observed: 09/15/2017 Status: UNK Source: [facility] 11:57 PM [facility] [facility] REPOSITORY PHYSICIAN ASSESSMENT RECORDS : FlexChartData Event Time: 09/15/2017 22:50 KMK Status: Signed [facility] Oliver Cunningham [[id number]] Attending Physician 57 / M / 1960 Chart (V2b) Chart created at 09/15/2017 22:39 by Viviana Andrade Chart closed at 09/15/2017 23:31 Entry in Emergency Department at 09/15/2017 20:17, departure at 09/15/2017 23:57 Patient Name: Oliver Cunningham Record Number: [id number] Date: 09/15/2017 22:39 Entered Department at: 09/15/2017 20:17 Patient Seen at: 09/15/2017 21:11 PCP: *None,. Chief Complaint:LOWER ABDOMINAL PAIN THAT RADIATES UP TO HIS CHEST Temperature: 98.5 F (36.9 C). Pulse: 98. Respiratory Rate: 16. Blood-pressure: 155/74. Oxygen Saturation: 95%. History of Present Illness: This is a 30-year-old male who presents with abdominal pain and chest pain is been ongoing for the last year. He states its started after having his inguinal hernias repaired. He states it goes from his groin area up his back to left chest. Is not exertional. There was no nausea or vomiting. Hes had chronic diarrhea for the last month but states that he is on Linzess..he lists multiple vague complaints in Im uncertain what prompted the visit to the ER today. [facility] PATIENT NAME: OLIVER CUNNINGHAM [address] [place] MEDICAL REC #: [id number] [place] [address] EMERGENCY DEPARTMENT CHART EMERGENCY DEPARTMENT PHYSICIAN He actually tells me that since he had his hernia repaired, the arteriesin is abdomen been affected and this was causing the pain. He states that hes had colonoscopies in they found nothing wrong. He is planning to make a trip to [place] to have someone redo hernia repair surgery Review of Systems. All other systems reviewed and negative.. Past History, Medications, Allergies, Social History and Family History reviewed in nurses note. Medications: Reviewed RN Note. LORAZEPAM 0.5MG TABLET - PO TWICE DAILY, VENTOLIN HFA 90MCG/ACTUATION INHALATION AEROSOL - INH, Linzess, Remeron UPDATED WITH PT. IRON Allergies: Reviewed RN Note PCN(Rash), mobic(Rash), lyrica(agitation of nerves), cymbalta(palpitations), abaugio(plugs arteries), copaxone(Rash), hydrochlorothiazide(syncope), Reglan(chest pain), trulance(Unknown) Social History: Reviewed RN Note. Family History: Reviewed RN Note Physical Examination: General: Alert and Well Developed; thin white male HEENT: Oropharynx / Throat: Moist mucous membranes. Neck: Supple Respiratory: No Resp Distress and Normal Breath Sounds Cardio-Vascular: RRR Abdomen: Normal Bowel Sounds, Non-tender and Soft Extremity: No edema Neurological: Alert, Oriented X3 Psychological: Mood/Affect Normal BMP, information as of 09/15/2017, 8:27 pm 136 --------+--------+--------andlt; 140* Anion Gap = 7 3.1* BUN/CREA: 9; CALCIUM TOTAL: 8.4 Mg/Dl CBC W/DIFF, information as of 09/15/2017, 8:24 pm [facility] PATIENT NAME: OLIVER CUNNINGHAM [address] [place] MEDICAL REC #: [id number] [place] [address] EMERGENCY DEPARTMENT CHART EMERGENCY DEPARTMENT PHYSICIAN 89.6 / 13.8 / 9.0 andgt;------andlt; 244 / 39.7* / N:56.5 BASO ABS: 0.10 K/Cu Mm; BASOPHIL %: 0.6 %; EOS ABS: 0.10 K/Cu Mm; EOSINOPHIL %: 0.9 %; IMMATR GRAN ABS: 0.00 K/Cu Mm; IMMATURE GRAN %: 0.2 %; LYMPH %: 32.7 %; LYMPH ABS: 2.90 K/Cu Mm; MCHC: 34.8 Gm/Dl; MONO ABS: 0.80 K/Cu Mm; MONOCYTE %: 9.1 %; MPV: 8.5; NEUTROPHIL ABS: 5.10 K/Cu Mm; NRBC: 0.0 %; RBC: 4.43 M/Cu Mm; RDW: 11.9 PT, information as of 09/15/2017, 8:27 pm INR: 0.9 PTS: 9.5 Seconds UA COMPLETE, information as of 09/15/2017, 9:43 pm + +---------+---------+---------+---------+-------- + + +---------+---------+---------+---------+-------- + + +---------+---------+---------+---------+-------- + + +---------+---------+---------+---------+-------- + + +---------+---------+---------+---------+-------- + TROPONIN I POC, information as of 09/15/2017, 8:32 pm POC Trop-I: 0.00 LIPASE, information as of 09/15/2017, 8:27 pm [facility] PATIENT NAME: OLIVER CUNNINGHAM [facility] [address] MEDICAL REC #: [id number] [place] [address] EMERGENCY DEPARTMENT CHART EMERGENCY DEPARTMENT PHYSICIAN LIPASE: 194 U/L LIVER, information as of 09/15/2017, 8:27 pm A/G RATIO: 1.2; ALBUMIN: 3.6 Gm/Dl; ALK PHOS: 68 U/L; BILI DIRECT: 0.11 Mg/Dl; BILI TOTAL: 0.2 Mg/Dl; GLOBULIN: 3.0 Gm/Dl; SGOT (AST): 16 U/L; SGPT (ALT): 22 Iu/L; TP: 6.5 Gm/Dl MAGNESIUM, information as of 09/15/2017, 8:27 pm M.1 Cardiogram: Interpreted by me. Rate: 97 bpm. Rate NormalRhythm Sinus RhythmAxis NormalIntervals NormalQRS NormalST/T Normal Interpretation: Normal. Imaging Study Obtained: CT ABD/PEL W IV CONTRAST ONLY Medical Decision Making Results above reviewed. His potassium is 3.1. all other lab work is unremarkable. CT scan showed no acute findings. He did urinate and post void residual was only 150 mL . Troponin here is normal. he was supplemented with 40 potassium here. Well discharge him home with more. I did talk to him about using the Linz S. He was prescribed as needed for constipation but it sounds like hes had diarrhea for the last month. ThereforeI recommended he stop the Linz S Clinical Impression: 1. abdominal pain, uncertain etiology 2. hypokalemia MSE completed. I was the primary ED attending.. : Discharge Report Event Time: 09/15/2017 23:32 KMK [facility] PATIENT NAME: OLIVER CUNNINGHAM [address] [place] MEDICAL REC #: [id number] [place] [address] EMERGENCY DEPARTMENT CHART EMERGENCY DEPARTMENT PHYSICIAN ===DISCHARGE REPORT=== : FlexChartData Event Time: 09/15/2017 22:50 KMK : Discharge Report Event Time: 09/15/2017 23:32 KMK Status: Draft Reasons to Return to the ER: You must return to the ER for any new, worsening or changing symptoms, or if you feel more ill or sick in any way. This is the most important thing to remember. Follow-up: The care you received in the ER was given on an emergency basis only, and it is often not possible to completely treat or diagnose a problem in a single ER visit. You must see your follow-up doctor for a recheck within a week unless you receive instructions with a different timeframe for follow-up. Please follow all your discharge instructions. Medications: Unless the ER doctor tells you differently, you should take all your regular medications and any new medications prescribed today. Because it is not possible for the ER doctor to review all of your medication side effects or interactions, you must review possible side effects and interactions with your pharmacist when you get your prescriptions filled. EKG and Radiology Results: A traveling clerk or radiologist will review any EKG or radiology results provided by the ER doctor. We will contact you if the results in the final EKG or radiology reports require a change in treatment. Culture Results: Cultures may have been ordered during your ER visit. We will contact you if the culture results require a change in treatment. [facility] PATIENT NAME: OLIVER CUNNINGHAM [address] MEDICAL REC #: [id number] [place] [address] EMERGENCY DEPARTMENT CHART EMERGENCY DEPARTMENT PHYSICIAN Referrals: Most referrals to specialists come from the on-call list You should make your regular doctor aware of any referrals before you schedule the appointment so that they are aware and can make suggestions DIAGNOSIS: abdominal pain, uncertain etiology, hypokalemia INSTRUCTIONS: Stop Linzess REFERRAL Your regular doctor(s) Please call the above number to schedule a follow-up appointment. MEDICATIONS We have given you these prescriptions that you must fill and start taking: Potassium Chloride CR 20 mEq tablet,extended release, count:4, Dose = 1, count:4, 2 times a day, count:4 COMMENTS: Patient Satisfaction: Within the first few days after your visit, you will receive an email and/or phone call regarding your visit. We value your feedback, and would appreciate it if you would take the time to complete this short survey. If you receive a call, it will be between 6p and 8p. My signature below indicates that I have received and understand the oral instructions regarding my medical problem. I also acknowledge receipt of this written instruction sheet including a list of major tests and procedures ordered during my visit. I will [facility] PATIENT NAME: OLIVER CUNNINGHAM [address] MEDICAL REC #: [id number] [place] [address] EMERGENCY DEPARTMENT CHART EMERGENCY DEPARTMENT PHYSICIAN arrange for follow-up care as indicated by these instructions and referrals. This signed original will be kept in my medical record. Your signature below indicates consent for Case Management to contact [facility] providers in an effort to meet your ongoing healthcare needs. This will allow forcontinuity of care once you leave the Emergency Department. This exchange of informationwill include, but not be limited to, disclosure of your patient information and possible release of records. [employer] Patient: OLIVER CUNNINGHAM Sex: M : 1960 Age: 57 yr Account No: [id number] Registration Date: 09/15/2017 Address: [address] Address: [place] [address] REGISTRATION ED Number: [id number] Marital Status: D Financial Class: MPPS TRIAGE Priority: 3 - Urgent Complaint: Abdominal Pain Complaint: Chest Pain Stated Complaint: LOWER ABDOMINAL PAIN THAT RADIATES UP TO HIS CHEST Arrival Date: 09/15/2017 20:17 Triage Date: 09/15/2017 20:19 Mode of Arrival: *Privately Owned Vehicle WC: N Language: Cypriot [facility] PATIENT NAME: OLIVER CUNNINGHAM [address] [place] MEDICAL REC #: [id number] [place] [address] EMERGENCY DEPARTMENT CHART EMERGENCY DEPARTMENT PHYSICIAN Transport: Ambulatory/Walk In BED A09 In: 09/15/2017 20:27:26 09/15/2017 20:27:26 DRBA A09 (Removed From) Out: 09/15/2017 23:57:29 09/15/2017 23:57:29 MAFA PROVIDERS KIMBERLEE UMANA Provider Contact: 09/15/2017 21:08:39 MAJO End: MD Viviana Andrade Provider Contact: 09/15/2017 21:11:00 WILLARD End: TRIAGE HISTORY ALLERGIES Allergic To: PCN - Rash 09/15/2017 20:23 DRBA Allergic To: mobic - Rash 09/15/2017 20:23 DRBA Allergic To: lyrica - agitation of nerves 09/15/2017 20:23 DRBA Allergic To: cymbalta - palpitations 09/15/2017 20:23 DRBA Allergic To: abaugio - plugs arteries 09/15/2017 20:23 DRBA Allergic To: copaxone - Rash 09/15/2017 20:23 DRBA Allergic To: hydrochlorothiazide - syncope 09/15/2017 20:23 DRBA [facility] PATIENT NAME: OLIVER CUNNINGHAM [address] MEDICAL REC #: [id number] [place] [address] EMERGENCY DEPARTMENT CHART EMERGENCY DEPARTMENT PHYSICIAN Allergic To: Reglan - chest pain 09/15/2017 20:23 DRBA Allergic To: trulance - Unknown 09/15/2017 20:23 DRBA CURRENT MEDS Name: LORAZEPAM 0.5MG TABLET - PO TWICE DAILY 09/15/2017 20:23 DRBA Name: VENTOLIN HFA 90MCG/ACTUATION INHALATION AEROSOL - INH 09/15/2017 20:23 DRBA Name: UPDATED WITH PT. DRClaribel 09/15/2017 20:23 DRBA ILLNESS Illness: multiple sclerosis 09/15/2017 20:23 DRBA Illness: scleraderma 09/15/2017 20:23 DRBA Illness: Emphysema 09/15/2017 20:23 DRBA PAST SURGERY HIST Surgery: Hernia Repair 09/15/2017 20:23 DRBA Surgery: Cholecystectomy 09/15/2017 20:23 DRBA Surgery: lower back 09/15/2017 20:23 DRBA Surgery: bilateral shoulder 09/15/2017 20:23 DRBA Surgery: Tonsillectomy 09/15/2017 20:23 DRBA PAST SOCIAL HIST Social History: Communicates without difficulty 09/15/2017 20:23 DRBA Social History: Alcohol - None 09/15/2017 20:23 DRBA Social History: Recreational Drugs - None 09/15/2017 20:23 DRBA Social History: Smoker-1/2 PPD 09/15/2017 20:23 DRBA Social History: Denies Domestic Violence 09/15/2017 20:23 DRBA Social History: Denies thoughts of self harm. [facility] PATIENT NAME: OLIVER CUNNINGHAM [address] MEDICAL REC #: [id number] [place] [address] EMERGENCY DEPARTMENT CHART EMERGENCY DEPARTMENT PHYSICIAN 09/15/2017 20:23 DRBA Social History: Have you traveled in the past month? Where NO 09/15/2017 20:23 DRBA Social History: Have you traveled in the past month? Where denies 09/15/2017 20:23 DRBA IMMUNIZATIONS Immunization: Flu Vaccine-no 09/15/2017 20:23 DRBA NURSING ASSESSMENT ASSESSMENT NOTES 09/15/2017 21:10 Pt came to the ED complaining of abd pain that radiates to his chest. Pt denies SOB. Pt states he had hernia surgery a year ago and they didnt do it right. Pt states he has had this pain since then. Pt alert and oriented x4. SKin is warm and dry. Msps intact. Abd soft and non-tender. Bowel sounds present. 09/15/2017 23:08 MAFA 09/15/2017 21:47 post-void residual = 150ml. Dr. Andrade notified. Pt urinated 600ml prior to scan 09/15/2017 21:47 MAFA TREATMENT 09/15/2017 20:59 POC testing results and critical values - POC Troponin 0.00 on ED instrument 09/15/2017 20:59 HAP 09/15/2017 21:06 Patient Interaction - Allergy Band on Pt. 09/15/2017 22:08 MAFA 09/15/2017 21:06 Patient Interaction - Call light placed within reach. 09/15/2017 22:08 MAFA 09/15/2017 21:06 Patient Interaction - Introduce self to Patient. 09/15/2017 22:08 MAFA [facility] PATIENT NAME: OLIVER CUNNINGHAM [address] MEDICAL REC #: [id number] [place] [address] EMERGENCY DEPARTMENT CHART EMERGENCY DEPARTMENT PHYSICIAN 09/15/2017 21:06 Patient Interaction - Name Band on Pt 09/15/2017 22:08 MAFA 09/15/2017 21:08 Hourly Rounding - Rounding 09/15/2017 22:08 MAFA Elimination/Toileting N Position Comfortable Y Safe Environment Y Fall Risk Change N 09/15/2017 22:08 Primary DOC Guide - A. 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 Fall Risk Assessment (Age andlt;65) 09/15/2017 22:08 MAFA History of Falling in last 3 months? No (0) Confusion or Disorientation? No (0) Intoxicated or Sedated? No (0) Impaired Gait? No (0) Mobility Assist Device Used? No (0) Altered Elimination? No (0) Fall Risk Score 1-2 Points = Low Risk. 3-4 Points = Moderate Risk. 5 or more points = High Risk. 0 Fall Score Greater andgt;= 3? No 09/15/2017 22:08 Primary DOC Guide - D. Psychosocial Assessment 09/15/2017 22:08 MAFA Over the Last 2 weeks, how often have you had little interest or pleasure in doing things (0) Not at All Is Psychosocial Assessment Score 3 or more? If score is 3 or more please consult ED Navigator! No Total Psychosocial Assessment Score 0 Over the last 2 weeks, how often have you been feeling down, depressed or hopeless (0) Not at All [facility] PATIENT NAME: OLIVER CUNNINGHAM [address] MEDICAL REC #: [id number] [place] [address] EMERGENCY DEPARTMENT CHART EMERGENCY DEPARTMENT PHYSICIAN 09/15/2017 22:08 Primary DOC Guide - E. Family Violence Assessment 09/15/2017 22:08 MAFA Within the past year, has anyone ever pushed, shoved, slapped, choked, hit, punched or kicked you: No Within the past year, has anyone ever pressured or forced you to have sexual activities when you did not want to: No Do you feel safe and well cared for: Yes Is there a partner from a previous or current relationship that is making you feel unsafe now: No Family Violence Clinical Observation All Negative Except 09/15/2017 22:08 Hourly Rounding - Rounding 09/15/2017 22:08 MAFA Elimination/Toileting N Position Comfortable Y Safe Environment Y Assessment Note call light within reach. family at the bedside. Fall Risk Change N 09/15/2017 23:06 Hourly Rounding - Rounding 09/15/2017 23:06 MAFA Elimination/Toileting Y Position Comfortable Y Safe Environment Y Assessment Note call light within reach. family at the bedside Fall Risk Change N 09/15/2017 23:57 Admit/Discharge - *Discharge instructions/tests andamp; procedures/med list reviewed and provided; prescriptions given to patient 09/15/2017 23:57 MAFA 09/15/2017 23:57 Admit/Discharge - Ambulated with steady gait home 09/15/2017 23:57 MAFA 09/15/2017 23:57 Admit/Discharge - Discharge 09/15/2017 23:57 MAFA MEDICATIONS [facility] PATIENT NAME: OLIVER CUNNINGHAM [address] [place] MEDICAL REC #: [id number] [place] [address] EMERGENCY DEPARTMENT CHART EMERGENCY DEPARTMENT PHYSICIAN IV IV Fluid: B 09/15/2017 22:01 09/15/2017 22:01 MAFA Line #: 1 Rate: ml/hr Location: antecubital fossa right Ndl Gauge: 20 # Attempts: 1 Notes: flushes without difficulty, no signs of infiltration. IV Fluid: E 09/15/2017 23:53 09/15/2017 23:54 MAFA Line #: 1 Rate: ml/hr Location: antecubital fossa right Ndl Gauge: 20 # Attempts: 1 Notes: CATHETER INTACT, DRESSING APPLIED I AND O VITALS VS-ROUTINE Time: 09/15/2017 20:19 B/P: 155/74 - Left Upper Arm - Lying - Machine Pulse: 98 - Monitor Resp: 16 Sa02: 95 Room Air Temp: 98.50 F - Oral 09/15/2017 20:23 DRBA VS-Pain Time: 09/15/2017 20:19 Pain Level: 9 09/15/2017 20:23 DRBA VS-GCS Time: 09/15/2017 20:19 09/15/2017 20:23 DRBA VS-HT/WT Time: 09/15/2017 20:19 Ht: 71 in. Stated Weight: 182 lbs Stated 09/15/2017 20:23 DRBA VS-Visual Time: 09/15/2017 20:19 09/15/2017 20:23 DRBA VS-FHT Time: 09/15/2017 20:19 09/15/2017 20:23 DRBA VS-Notes Time: 09/15/2017 20:19 MAP 106 09/15/2017 20:23 DRBA VS-ROUTINE Time: 09/15/2017 23:04 B/P: 128/82 - Left Upper Arm - Lying - Machine Pulse: 98 - Monitor Resp: 18 Sa02: 98 Room Air 09/15/2017 23:56 MAFA VS-Pain Time: 09/15/2017 23:04 09/15/2017 23:56 MAFA [facility] PATIENT NAME: OLIVER CUNNINGHAM [address] [facility] [address] MEDICAL REC #: [id number] [place] [address] EMERGENCY DEPARTMENT CHART EMERGENCY DEPARTMENT PHYSICIAN VS-GCS Time: 09/15/2017 23:04 09/15/2017 23:56 MAFA VS-HT/WT Time: 09/15/2017 23:04 09/15/2017 23:56 MAFA VS-Visual Time: 09/15/2017 23:04 09/15/2017 23:56 MAFA VS-FHT Time: 09/15/2017 23:04 09/15/2017 23:56 MAFA VS-Notes Time: 09/15/2017 23:04 MAP = 100 09/15/2017 23:56 MAFA CANCELLED VITAL SIGNS VS-ROUTINE Time: 09/15/2017 23:04 B/P: 128/82 - Left Upper Arm - Lying - Machine Pulse: 300 - Monitor Resp: 18 Sa02: 98 Room Air 09/15/2017 23:04 MAFA VS-Pain Time: 09/15/2017 23:04 09/15/2017 23:04 MAFA VS-GCS Time: 09/15/2017 23:04 09/15/2017 23:04 MAFA VS-HT/WT Time: 09/15/2017 23:04 09/15/2017 23:04 MAFA VS-Visual Time: 09/15/2017 23:04 09/15/2017 23:04 MAFA VS-FHT Time: 09/15/2017 23:04 09/15/2017 23:04 MAFA VS-Notes Time: 09/15/2017 23:04 map = 100 09/15/2017 23:04 MAFA Delete Time: 23:55 09/15/2017 MAFA Delete Notes: WRONG HEART RATE ORDERS Discharge patient 09/15/2017 23:33 N/A Ordered: 09/15/2017 23:31 By Viviana Andrade Reviewed: 09/15/2017 23:33 By Viviana Andrade AWNING CRAFTSMAN ORDER: LIVER 09/15/2017 23:15 None Ordered: 09/15/2017 23:15 Completed Time: 09/15/2017 23:15 Results Time: 09/15/2017 23:15 AWNING CRAFTSMAN ORDER: LIPA 09/15/2017 23:15 None Ordered: 09/15/2017 23:15 Completed Time: 09/15/2017 23:15 Results Time: 09/15/2017 23:15 AWNING CRAFTSMAN ORDER: MG 09/15/2017 23:15 None Ordered: 09/15/2017 23:15 Completed Time: [facility] PATIENT NAME: OLIVER CUNNINGHAM [facility] [address] MEDICAL REC #: [id number] [place] [address] EMERGENCY DEPARTMENT CHART EMERGENCY DEPARTMENT PHYSICIAN 09/15/2017 23:15 Results Time: 09/15/2017 23:15 Lab: Add On Test (excluding POC tests) 09/15/2017 23:21 N/A Ordered: 09/15/2017 22:46 By Viviana Andrade Completed Time: 09/15/2017 23:21 By Viviana Andrade Noted Time: 09/15/2017 22:52 MAFA Question: Test to be added: Answer: liver panel, lipase Potassium Chloride (PO)*(20 meq) DOSE: 40 meq PO 09/15/2017 23:04 N/A Ordered: 09/15/2017 22:44 By Viviana Andrade Completed Time: 09/15/2017 23:04 By Viviana Andrade Noted Time: 09/15/2017 22:59 MAFA Lab: Add On Test (excluding POC tests) 09/15/2017 23:21 N/A Ordered: 09/15/2017 22:44 By Viviana Andrade Completed Time: 09/15/2017 23:21 By Viviana Andrade Noted Time: 09/15/2017 22:45 DWR Question: Test to be added: Answer: magnesium level CT abd and pel with IV con only 09/15/2017 23:12 N/A Ordered: 09/15/2017 21:35 By Viviana Andrade Completed Time: 09/15/2017 23:12 By Viviana Andrade Indication: Abdominal Pain Noted Time: 09/15/2017 23:01 Question: Patient has history of true RCM allergy? Answer: NO UA ccms (cath if unable to void in 30 mins) 09/15/2017 21:54 N/A Ordered: 09/15/2017 21:12 By Viviana Andrade Completed Time: 09/15/2017 21:54 By Viviana Andrade Noted Time: 09/15/2017 21:46 MAFA Question: Lab Urine Specimen Type Answer: Clean Catch Question: Also Culture, if indicated by UA results (Y or N) [facility] PATIENT NAME: OLIVER CUNNINGHAM [address] [facility] [address] MEDICAL REC #: [id number] [place] [address] EMERGENCY DEPARTMENT CHART EMERGENCY DEPARTMENT PHYSICIAN Answer: YES Results Time: 09/15/2017 21:54 Bladder scan for post-void residual 09/15/2017 21:47 N/A Ordered: 09/15/2017 21:12 By Viviana Andrade Completed Time: 09/15/2017 21:46 By Viviana Andrade Noted Time: 09/15/2017 21:26 MAFA AWNING CRAFTSMAN ORDER: GFRP 09/15/2017 20:57 None Ordered: 09/15/2017 20:57 Completed Time: 09/15/2017 20:57 Results Time: 09/15/2017 23:15 AWNING CRAFTSMAN ORDER: POCTROP 09/15/2017 20:48 None Ordered: 09/15/2017 20:48 Completed Time: 09/15/2017 20:48 Results Time: 09/15/2017 20:47 BMP 09/15/2017 20:57 N/A Ordered: 09/15/2017 20:23 By Protocol Completed Time: 09/15/2017 20:57 By Protocol Noted Time: 09/15/2017 20:26 DRBA Results Time: 09/15/2017 23:15 CBC with diff 09/15/2017 20:33 N/A Ordered: 09/15/2017 20:23 By Protocol Completed Time: 09/15/2017 20:33 By Protocol Noted Time: 09/15/2017 20:26 DRBA Results Time: 09/15/2017 20:33 EKG and most recent EKG 09/15/2017 20:26 N/A Ordered: 09/15/2017 20:23 By Protocol Completed Time: 09/15/2017 20:25 By Protocol Noted Time: 09/15/2017 20:20 DRBA O2 by cannula at 2L if SAT andlt;= 91% 09/15/2017 21:26 N/A Ordered: 09/15/2017 20:23 By Protocol Noted Time: 09/15/2017 21:26 MAFA POC troponin 09/15/2017 20:59 N/A [facility] PATIENT NAME: OLIVER CUNNINGHAM [address] [facility] [address] MEDICAL REC #: [id number] [place] [address] EMERGENCY DEPARTMENT CHART EMERGENCY DEPARTMENT PHYSICIAN Ordered: 09/15/2017 20:23 By Protocol Completed Time: 09/15/2017 20:59 By Protocol Noted Time: 09/15/2017 20:26 DRBA PT/INR order only if on coumadin/warfarin/Jantoven 09/15/2017 20:57 N/A Ordered: 09/15/2017 20:23 By Protocol Completed Time: 09/15/2017 20:57 By Protocol Noted Time: 09/15/2017 20:26 DRBA Results Time: 09/15/2017 20:57 DISCHARGE Diagnosis: abdominal pain, uncertain etiology, hypokalemia 09/15/2017 23:33 CANCELLED DIAGNOSES Diagnosis Name: abdominal pain, uncertain etiology, hypokalemia Disposition: Time: 09/15/2017 23:31 Discharge Time: 09/15/2017 23:57 Type: Discharge Condition: Stable for admission/discharge/transfer after emergency evaluation/treatment Category: *NOT APPLICABLE Referral: 09/15/2017 23:32 KMK Admit Physician: . Other PRESCRIPTIONS Potassium Chloride CR 20 mEq tablet,extended release 09/15/2017 23:32 KMK SI bid Dispense: 4 / Refills: CHARGES SIGNATURE Viviana Andrade MD KMK [facility] PATIENT NAME: OLIVER CUNNINGHAM [address] MEDICAL REC #: [id number] [place] [address] EMERGENCY DEPARTMENT CHART EMERGENCY DEPARTMENT PHYSICIAN RIK UMANA RN MAJO JIMENEZ [facility] PATIENT NAME: OLIVER CUNNINGHAM [address] MEDICAL REC #: [id number] [place] [address] EMERGENCY DEPARTMENT CHART EMERGENCY DEPARTMENT PHYSICIAN SREEKANTH COMPLETE Collected: 09/15/2017 Status: F Source: [facility] 9:43 PM CENTER CANT REPOSITORY Order Comment: [place]: M TYPE CODE TESTS RESULT OUT OF REFERENCE UNITS RANGE LAB L600.10154 UA COLOR Normal Straw LAB L600.35161 CLEAR UA Normal APPEARANCE Clear LAB L600.31474 1.005-1.030 UA SPEC Normal GRAV 1.001 LAB L600.58292 UA PH Normal 7.0 LAB L600.03857 UA GLUCOSE Normal NEG LAB L600.13262 UA KETONE Normal NEGATIVE LAB L600.06594 UA Normal BILIRUBIN NEGATIVE LAB L600.25856 UA Normal UROBILINOGEN NEG LAB L600.45845 NEGATIVE UA PROTEIN Normal NEGATIVE LAB L600.53775 NEGATIVE UA BLOOD Normal NEGATIVE LAB L600.31862 NEGATIVE UA NITRITE Normal NEGATIVE LAB L600.52161 NEGATIVE UA LK Normal ESTERASE NEG Performed By: #### L600.94001 #### [facility] [id number] ABD/PEL W IV Observed: 09/15/2017 Status: F Source: [facility] CONTRAST ONLY 8:35 PM [facility], [facility] CT ABD/PEL W IV CONTRAST ONLY Ordering Physician: Viviana Andrade MD 09/15/2017 9:[address] ABDOMEN AND PELVIS WITH INTRAVENOUS CONTRAST: Clinical Statement: Abdominal pain, lower abdominal pain since hernia surgery 16 months ago that has caused blockages, history of multiple sclerosis, remote history of inguinal hernia repair, cholecystectomy Comparison: CT abdomen/pelvis 08/24/2017 TECHNIQUE: Contiguous transaxial 3.75 mm slices were obtained through the abdomen and pelvis following the uneventful administration of 100 cc of Isovue 300 IV contrast. FINDINGS: There are reticular opacities in the lingula unchanged from 08/24/2017 exam and may represent scarring. The included lung bases are otherwise clear. There is no pleural or pericardial effusion. The liver, spleen, pancreas, and adrenal glands are within normal limits. The gallbladder is surgically absent. The kidneys enhance symmetrically without hydronephrosis. There is a left renal cyst in the inferior pole of the left kidney. The bladder is distended without focal abnormality. The prostate is mildly enlarged measuring up to 5 cm in transverse diameter. The small bowel and colon are normal in caliber. The appendix is normal. Prior bilateral hernia repair is present with no significant change in postoperative changes. There is no free intraperitoneal air-fluid. The abdominal aorta is normal in caliber with calcified atherosclerosis. No lymphadenopathy is seen in the abdomen or pelvis. No acute or suspicious osseous abnormality is identified. There is mild retrolisthesis of L5 on S1. There are bilateral water density structures within the inguinal regions which are similar to the prior exam and may represent postsurgical changes. These structures measure about 3 cm each. IMPRESSION: No acute findings in the abdomen or pelvis. Reticular opacities in the left lower lobe unchanged from 08/24/2017 CT exam may represent scarring rather than infectious/inflammatory process. Addendum: Similar fluid density structures in the bilateral inguinal regions which may represent post surgical changes and/or seromas. Dictated by Blood Tester Fowl: Donya Richards DO Reviewed and Signed by: Kate Best MD ---- Electronic Signature on File ---- Signed By: Kate Best MD [email or web address] Dictated: 09/15/2017 11:03 PM Signed: 09/16/2017 7:38 AM Reported By: KATE BEST M.D. Signed By: KATE BEST M.D. EKG Observed: 09/15/2017 Status: UNK Source: [facility] 8:35 PM [place] [facility] REPOSITORY Procedure Date and Time: 09/15/172019 Test Reason : STAT Blood Pressure : / mmHG Vent. Rate : 097 BPM Atrial Rate : 097 BPM P-R Int : 124 ms QRS Dur : 098 ms QT Int : 340 ms P-R-T Axes : 081 090 023 degrees QTc Int : 431 ms Normal sinus rhythm Non-specific ST abnormality Abnormal ECG No previous ECGs available Confirmed by CHANO DUVALL A. ([id number]) on 09/16/2017 11:28:41 PM Referred By: Emergency St[facility] Confirmed By:Flaco DUVALL M.D.FACC Sher[place] DDandT: 09/15/172019 TDandT: [facility] PATIENT NAME: OLIVER CUNNINGHAM [address] [facility] [address] MEDICAL REC #: [id number] [place] [address] ADMIT DATE: DISCHARGE DATE: 09/15/17 ATTENDING PHY: Viviana Andrade MD ELECTROCARDIOGRAM REPORT CLB cc: [facility] PATIENT NAME: OLIVER CUNNINGHAM [facility] [address] MEDICAL REC #: [id number] [place] [address] ADMIT DATE: DISCHARGE DATE: 09/15/17 ATTENDING PHY: Viviana Andrade MD ELECTROCARDIOGRAM REPORT TROPONIN I POC Collected: 09/15/2017 Status: F Source: [facility] 8:32 PM [facility] REPOSITORY TYPE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 [facility] VS-Visual Time: 09/01/2017 15:53 09/01/2017 15:55 [facility] VS-FHT Time: 09/01/2017 15:53 09/01/2017 15:55 [facility] VS-Notes Time: 09/01/2017 15:53 map 81 09/01/2017 15:55 [facility] ORDERS Discharge patient 09/01/2017 15:05 [facility] PATIENT NAME: OLIVER CUNNINGHAM [address] [facility] [facility] [address] MEDICAL REC #: [id number] [place] [address] EMERGENCY DEPARTMENT CHART EMERGENCY DEPARTMENT PHYSICIAN N/A Ordered: 09/01/2017 15:01 By . Other Reviewed: 09/01/2017 15:05 By . Other [employer] ORDER: GFRP 09/01/2017 15:00 None Ordered: 09/01/2017 15:00 Completed Time: 09/01/2017 15:00 Results Time: 09/01/2017 15:00 Hoffman catheter removal 09/01/2017 15:52 N/A Ordered: 09/01/2017 14:55 By Amada Johnson Completed Time: 09/01/2017 15:52 By Amada Johnson Noted Time: 09/01/2017 14:59 [facility] BMP 09/01/2017 15:00 N/A Ordered: 09/01/2017 14:36 By Amada Johnson Completed Time: 09/01/2017 15:00 By Amada Johnson Noted Time: 09/01/2017 14:38 BRR Results Time: 09/01/2017 14:59 Hoffman catheter insertion 09/01/2017 14:34 N/A Ordered: 09/01/2017 13:24 By Amada Johnson Completed Time: 09/01/2017 14:25 By Amada Johnson UA cath 09/01/2017 14:52 N/A Ordered: 09/01/2017 13:24 By Amada Johnson Completed Time: 09/01/2017 14:52 By Amada Johnson Noted Time: 09/01/2017 14:34 CN Question: Lab Urine Specimen Type Answer: Catheterized Question: Also Culture, if indicated by UA results (Y or N) Answer: NO Results Time: 09/01/2017 14:52 DISCHARGE Diagnosis: acute urinary retention with suspected prostatic hypertrophy 09/01/2017 15:02 Disposition: Time: 09/01/2017 15:01 Discharge Time: 09/01/2017 15:55 Type: Discharge [facility] PATIENT NAME: OLIVER CUNNINGHAM [address] [facility] [address] MEDICAL REC #: [id number] [place] [address] EMERGENCY DEPARTMENT CHART EMERGENCY DEPARTMENT PHYSICIAN Condition: Stable for admission/discharge/transfer after emergency evaluation/treatment Category: *NOT APPLICABLE Referral: 09/01/2017 15:02 Admit Physician: . Other PRESCRIPTIONS Flomax 0.4 mg capsule 09/01/2017 15:02 SI qd for 10 days Dispense: 10 / Refills: CHARGES SIGNATURE EVERARDO Johnson MD [facility] ILANA LENTZ RN AT [facility] RN [facility] PATIENT NAME: OLIVER CUNNINGHAM [address] [place] [address] [address] MEDICAL REC #: [id number] [place] [address] EMERGENCY DEPARTMENT CHART EMERGENCY DEPARTMENT PHYSICIAN UA COMPLETE Collected: 09/01/2017 Status: F Source: [facility] 2:41 PM [facility] REPOSITORY Order Comment: [place]: TYPE CODE TESTS RESULT OUT OF REFERENCE UNITS RANGE LAB L600.05203 UA COLOR Normal Yellow LAB L600.07076 CLEAR UA Normal APPEARANCE CLEAR LAB L600.35976 1.005-1.030 UA SPEC Normal GRAV 1.015 LAB L600.22893 5-6 UA PH Normal 5.5 LAB L600.65541 NORMAL MG/DL UA GLUCOSE Normal NEGATIVE LAB L600.64952 NEGATIVE MG/DL UA KETONE Normal TRACE LAB L600.64027 NEGATIVE MG/DL UA Normal BILIRUBIN NEGATIVE LAB L600.80788 NORMAL MG/DL UA Normal UROBILINOGEN NORMAL LAB L600.28147 NEGATIVE MG/DL UA PROTEIN Normal NEGATIVE LAB L600.83812 NEGATIVE RONAK/UL UA BLOOD Normal NEGATIVE LAB L600.26499 NEGATIVE UA NITRITE Normal NEGATIVE LAB L600.95761 NEGATIVE BALTAZAR/uL UA LK Normal ESTERASE NEGATIVE LAB L600.57619 N UA COMMENT Normal * Result Comment: *MICROSCOPIC NOT PERFORMED BASED ON CHEMICAL DETERMINATIONS. Performed By: #### L600.40099 #### [facility] [address] [place] [address] BMP Collected: 09/01/2017 Status: F Source: [facility] 2:38 PM [facility] REPOSITORY Order Comment: [place]: M TYPE CODE TESTS RESULT OUT OF RANGE REFERENCE UNITS LAB L500.93884 136-145 MMOL/L Normal NA 139 LAB L500.79402 3.5-5.1 MMOL/L Low K 3.4 LAB L500.39773 98-107 MMOL/L Normal CL 106 LAB L500.71961 21-32 MMOL/L Normal CO2 27 LAB L500.91798 5-16 MMOL/L Normal AGAP 6 LAB L500.46240 70-100 MG/DL High GLU 120 Result Comment: 70-100- Normal Fasting; 100-125 Impaired Fasting; greater than 126 on more than one result- Diabetes. ADA guidelines. Results may be falsely elevated after the administration of Sulfapyridine. Results may be falsely depressed after the administration of Sulfasalazine. LAB L500.32867 7-26 MG/DL Normal BUN 7 LAB L500.14105 0.670-1.170 MG/DL Low CREAT 0.640 Result Comment: Patients receiving either N-Acetylcysteine (NAC) or Metamizole prior to venipuncture, may have falsely depressed results. LAB L500.67755 15-24 Low BUN/CREA 11 LAB L500.60387 8.5-10.1 MG/DL Low CALCIUM TOTAL 8.3 Performed By: #### L500.89259, L500.69473 #### [facility] [address] [place] [address] GFR EST Collected: 09/01/2017 Status: F Source: [facility] 2:38 PM [facility] REPOSITORY Order Comment: [place]: M TYPE CODE TESTS RESULT OUT OF RANGE REFERENCE UNITS LAB L500.60727 ML/MIN Normal IF non-AFR Greater than AMER 60 LAB L500.70656 ML/MIN Normal IF Greater than AMER 60 Performed By: #### L500.94778, L500.47337 #### [facility] [address] [place] [address] BASIC METABOLIC Collected: 08/29/2017 Status: F Source: [facility] PROFILE (BMP) 9:56 AM [facility] REPOSITORY TYPE CODE TESTS RESULT OUT OF RANGE REFERENCE UNITS LAB L501.0100 74-106 mg/dL High GLU 114 Result Comment: Fasting Glucose result from 100 to 125 mg/dL suggests IMPAIRED HOMEOSTASIS per A.D.A. criteria. Please note revised GLUCOSE reference range effective 2017. LAB L501.1000 7-18 mg/dL Normal BUN 9 LAB L501.1100 0.70-1.30 mg/dL Normal CREAT,SERUM 0.76 Result Comment: The validity of the calculated GFR AND GFRAA in patients over 70 years has not been determined. Clinical correlation is essential. LAB L501.1110 >60 mL/min Normal EST GFR 113 Result Comment: Non- GFR Calc LAB L501.1115 >60 mL/min Normal EST GFR - AA 136 Result Comment: GFR Calc LAB L501.1300 10-20 RATIO Normal BUN/CRE 11.8 LAB L501.2200 8.5-10.1 mg/dL CA Normal 8.5 LAB L501.5300 136-145 mmol/L NA Normal 140 LAB L501.5600 3.5-5.1 mmol/L K Normal 3.8 LAB L501.5900 98-107 mmol/L CL Normal 107 LAB L501.6100 21.0-32.0 mmol/L Normal CO2 27.0 LAB L501.6200 5-15 Normal GAP 6 Performed By: #### L500.2500 #### [facility] [address] [place], [address] ED DOC Observed: 08/24/2017 Status: UNK Source: [facility] 11:13 AM [facility] [employer] REPOSITORY This is a preliminary report only, as the practitioner review and authentication has not occurred. ED DOC Observed: 08/24/2017 Status: UNK Source: [facility] 11:13 AM [place] [employer] REPOSITORY PHYSICIAN ASSESSMENT RECORDS : FlexChartData Event Time: 08/24/2017 09:35 Status: Signed [facility] Oliver Cunningham [[id number]] Attending Physician 57 / M / 1960 Chart (V2b) Chart created at 08/24/2017 09:29 by Juan Carlos Segura Chart closed at 08/24/2017 10:47 Entry in Emergency Department at 08/24/2017 08:22, departure at 08/24/2017 11:13 Patient Name: Oliver Cunningham Record Number: [id number] Date: 08/24/2017 09:29 Entered Department at: 08/24/2017 08:22 Patient Seen at: 08/24/2017 08:57 Historian: Patient PCP: *None,. Chief Complaint:PT REPORTS LOWER ABDOMINAL PAIN WITH URINARY RETENTION. PT REPORTS NAUSEA. Triage Note reviewed and Initial Vital Signs reviewed. Temperature: 97.5 F (36.4 C). Pulse: 97. Respiratory Rate: 16. Blood-pressure: 168/98. Oxygen Saturation: 97%. History of Present Illness: Patient presents complaining of lower abdominal pain bilaterally. She started sensation. Hes been having it for about 15 months. Nothing seems to make it better or worse. He states that he had a hernia repair done 15 months ago and since that surgery the pain is been getting worse. He seen multiple surgeons, hes been to multiple different hospitals including one done in [facility] PATIENT NAME: OLIVER CUNNINGHAM [address] [facility] [address] [facility] [address] MEDICAL REC #: [id number] [place] [address] EMERGENCY DEPARTMENT CHART EMERGENCY DEPARTMENT PHYSICIAN Laura, here in [facility], [facility] in the past and hes been referred multiple surgeons and states none of them want to go to surgery to keep telling him to follow-up with his surgeon down in [place]. He states hes tried to do this but they will go in and takes whatever might be wrong. Its unclear what is exactly long if anything. He states he takes Tylenol for pain. Hes felt nauseous and had vomiting. Hes had no diarrhea. No constipation. No blood in his stool or vomitus. No fever or chills. No chest pain. He has emphysema but no change in shortness of breath. Review of Systems. All other systems reviewed and negative.. Past History, Medications, Allergies, Social History and Family History reviewed in nurses note. Medications: Reviewed RN Note. Allergies: Reviewed RN Note PCN(Rash), mobic(Rash), lyrica(agitation of nerves), cymbalta(palpitations), abaugio(plugs arteries), copaxone(Rash), hydrochlorothiazide(syncope), Reglan(chest pain), trulance(Unknown) Social History: Reviewed RN Note. Family History: Reviewed RN Note Physical Examination: General: Alert HEENT: Normal ENT inspection. Neck: No Meningismus and Supple Respiratory: No Resp Distress and Normal Breath Sounds Cardio-Vascular: No murmur and RRR Abdomen: Soft; Minimal lower abdominal tenderness, no rebound tenderness or guarding, no masses or hernias appreciated Extremity: No edema and Normal Equal pulses Neurological: Alert, Oriented X3 and No Gross Weakness Skin: Warm and Dry Psychological: Mood/Affect Normal Medical Decision Making I did get a CT of the abdomen which showed no acute process. Blood work was unremarkable. Patient was given morphine and Zofran. His pain is chronic in nature. [facility] PATIENT NAME: OLIVER CUNNINGHAM [address] [facility] [address] [facility] [address] MEDICAL REC #: [id number] [place] [address] EMERGENCY DEPARTMENT CHART EMERGENCY DEPARTMENT PHYSICIAN He seen many specialists. Unfortunately no feel there is an emergent reason for him to see a specialist at this point. Hes instructed to continue to try to get into his surgeon did the surgery and he will be given referral to our surgeons here as well as a primary care doctor. He is given several Mckee for home as his workers report was relatively clean. He is instructed return if he has any new or worsening symptoms. He is agreeable with this plan. Patient is discharged in stable condition. Additional Information: Discussed Results, Diagnosis and Follow-Up with Patient. Clinical Impression: 1. Acute on chronic abdominal pain Disposition: Discharged . Condition: Fair MSE completed. I was the primary ED attending.. : Discharge Report Event Time: 08/24/2017 10:48 ===DISCHARGE REPORT=== : FlexChartData Event Time: 08/24/2017 09:35 : Discharge Report Event Time: 08/24/2017 10:48 Status: Draft Reasons to Return to the ER: You must return to the ER for any new, worsening or changing symptoms, or if you feel more ill or sick in any way. This is the most important thing to remember. Follow-up: The care you received in the ER was given on an emergency basis only, and it is often not possible to [facility] PATIENT NAME: OLIVER CUNNINGHAM [address] [facility] [address] MEDICAL REC #: [id number] [place] [address] EMERGENCY DEPARTMENT CHART EMERGENCY DEPARTMENT PHYSICIAN completely treat or diagnose a problem in a single ER visit. You must see your follow-up doctor for a recheck within a week unless you receive instructions with a different timeframe for follow-up. Please follow all your discharge instructions. Medications: Unless the ER doctor tells you differently, you should take all your regular medications and any new medications prescribed today. Because it is not possible for the ER doctor to review all of your medication side effects or interactions, you must review possible side effects and interactions with your pharmacist when you get your prescriptions filled. EKG and Radiology Results: A traveling clerk or radiologist will review any EKG or radiology results provided by the ER doctor. We will contact you if the results in the final EKG or radiology reports require a change in treatment. Culture Results: Cultures may have been ordered during your ER visit. We will contact you if the culture results require a change in treatment. Referrals: Most referrals to specialists come from the on-call list You should make your regular doctor aware of any referrals before you schedule the appointment so that they are aware and can make suggestions DIAGNOSIS: Acute on chronic abdominal pain UNLESS THE ER DOCTOR GIVES YOU OTHER INSTRUCTIONS, YOU MUST SEE YOUR FOLLOW-UP DOCTOR WITHIN 1 TO 2 DAYS FOR RECHECK. YOU MUST RETURN TO THE ER RIGHT AWAY FOR ANY OF THE FOLLOWING:Increasing painChange in the location of [facility] PATIENT NAME: OLIVER CUNNINGHAM [address] [facility] [address] MEDICAL REC #: [id number] [place] [address] EMERGENCY DEPARTMENT CHART EMERGENCY DEPARTMENT PHYSICIAN the painNew or increasing fever or chillsNew or increasing constipation or difficulty urinatingNew or increasing abdominal swelling or bloatingBlood appears in the stool, vomit or urineNew or increasing vomiting or diarrhea.New or increasing weakness or dizzinessEarly appendix infection is always a possibility and you must return if the pain moves to the lower right side of your abdomen REFERRAL Dayna Munson DO (General Surgery), , fax: Please call the above number to schedule a follow-up appointment. [facility] ([facility]), Please call the above number to schedule a follow-up appointment. 2-3 days MEDICATIONS We have given you these prescriptions that you must fill and start taking: Mckee 5 mg-325 mg tablet, count:12, Dose = 1, count:12, 3 days, count:12, q4-6h, count:12, Number of Refills = 0, count:12, ICD 10 R10.8, count:12 COMMENTS: Patient Satisfaction: Within the first few days after your visit, you will receive an email and/or phone call regarding your visit. We value your feedback, and would appreciate it if you would take the time to complete this short survey. If you receive a call, it will be between 6p and 8p. My signature below indicates that I have received and understand the oral instructions regarding my medical problem. I also acknowledge receipt of this written [facility] PATIENT NAME: OLIVER CUNNINGHAM [address] [facility] [address] MEDICAL REC #: [id number] [place] [address] EMERGENCY DEPARTMENT CHART EMERGENCY DEPARTMENT PHYSICIAN instruction sheet including a list of major tests and procedures ordered during my visit. I will arrange for follow-up care as indicated by these instructions and referrals. This signed original will be kept in my medical record. Your signature below indicates consent for Case Management to contact [facility] providers in an effort to meet your ongoing healthcare needs. This will allow forcontinuity of care once you leave the Emergency Department. This exchange of informationwill include, but not be limited to, disclosure of your patient information and possible release of records. [employer] Patient: OLIVER CUNNINGHAM Sex: M : 1960 Age: 57 yr Account No: [id number] Registration Date: 08:08/24/2017 Address: [address] Address: [place] [address] REGISTRATION ED Number: [id number] Marital Status: D Financial Class: MPPS TRIAGE Priority: 3 - Urgent Complaint: Abdominal Pain Stated Complaint: PT REPORTS LOWER ABDOMINAL PAIN WITH URINARY RETENTION. PT REPORTS NAUSEA. Arrival Date: 08/24/2017 08:22 Triage Date: 08/24/2017 08:23 Mode of Arrival: Ambulatory/Walk-In WC: N [facility] PATIENT NAME: OLIVER CUNNINGHAM [address] [facility] [address] MEDICAL REC #: [id number] [place] [address] EMERGENCY DEPARTMENT CHART EMERGENCY DEPARTMENT PHYSICIAN Language: Cypriot Transport: Walk-In BED D49 In: 08/24/2017 08:55:06 08/24/2017 08:55:06 SXM D49 (Removed From) Out: 08/24/2017 11:13:39 08/24/2017 11:13:39 [facility] PROVIDERS MD Juan Carlos Segura Provider Contact: 08/24/2017 08:57:00 [id number] End: KIMBERLEE JASON Provider Contact: 08/24/2017 09:03:42 SAS End: TRIAGE HISTORY ALLERGIES Allergic To: PCN - Rash 08/24/2017 08:24 SXM Allergic To: mobic - Rash 08/24/2017 08:24 SXM Allergic To: lyrica - agitation of nerves 08/24/2017 08:24 SXM Allergic To: cymbalta - palpitations 08/24/2017 08:24 SXM Allergic To: abaugio - plugs arteries 08/24/2017 08:24 SXM Allergic To: copaxone - Rash 08/24/2017 08:24 SXM Allergic To: hydrochlorothiazide - syncope 08/24/2017 08:24 SXM [facility] PATIENT NAME: OLIVER CUNNINGHAM [address] [facility] [address] MEDICAL REC #: [id number] [place] [address] EMERGENCY DEPARTMENT CHART EMERGENCY DEPARTMENT PHYSICIAN Allergic To: Reglan - chest pain 08/24/2017 08:24 SXM Allergic To: trulance - Unknown 08/24/2017 08:24 SXM CURRENT MEDS Name: ATIVAN 08/24/2017 09:34 [facility] Name: FISH OIL 08/24/2017 09:34 [facility] Name: GARLIC 08/24/2017 09:34 [facility] Name: BABY ASA 08/24/2017 09:34 [facility] Name: DOXYCYCLINE 08/24/2017 09:34 [facility] Name: INH 08/24/2017 09:34 [facility]ASC ILLNESS Illness: multiple sclerosis 08/24/2017 08:24 SXM Illness: scleraderma 08/24/2017 08:24 SXM Illness: Emphysema 08/24/2017 08:24 SXM PAST SURGERY HIST Surgery: Hernia Repair 08/24/2017 08:24 SXM Surgery: Cholecystectomy 08/24/2017 08:24 SXM Surgery: lower back 08/24/2017 08:24 SXM Surgery: bilateral shoulder 08/24/2017 08:24 SXM Surgery: Tonsillectomy 08/24/2017 08:24 SXM PAST SOCIAL HIST Social History: Communicates without difficulty 08/24/2017 08:24 SXM Social History: Alcohol - None 08/24/2017 08:24 SXM Social History: Recreational Drugs - None 08/24/2017 08:24 SXM Social History: Smoker-1/2 PPD 08/24/2017 08:24 SXM [facility] PATIENT NAME: OLIVER CUNNINGHAM [address] [facility] [facility] [address] [place] MEDICAL REC #: [id number] [place] [address] EMERGENCY DEPARTMENT CHART EMERGENCY DEPARTMENT PHYSICIAN Social History: Denies Domestic Violence 08/24/2017 08:24 SXM Social History: Denies thoughts of self harm. 08/24/2017 08:24 SXM Social History: Have you traveled in the past month? Where NO 08/24/2017 08:24 SXM Social History: Have you traveled in the past month? Where denies 08/24/2017 08:24 SXM IMMUNIZATIONS Immunization: Flu Vaccine-no 08/24/2017 08:24 SXM NURSING ASSESSMENT ASSESSMENT NOTES 08/24/2017 09:53 Pt has bilateral lower quad abd pain.Pt also reports having difficulty urinating.Pt states he has had hx of kidney stones in the past and was placed on Flomax.Abd soft round tender.Pt denies fevers,chest pain or sob.pt is alert and oriented x4. 08/24/2017 09:55 [facility] TREATMENT 08/24/2017 09:05 Hourly Rounding - Rounding 08/24/2017 09:05 [facility] Position Comfortable Y Safe Environment Y 08/24/2017 09:07 Primary DOC Guide - A. 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 [place] MEDICAL REC #: [id number] [place] [address] EMERGENCY DEPARTMENT CHART EMERGENCY DEPARTMENT PHYSICIAN Latex Allergy Screen All Negative Travel History - Traveled outside of the state in the last 30 days No Travel History - Had contact with a person who has traveled outside the state in the last 30 days No 08/24/2017 09:08 Primary DOC Guide - B. Fall Risk Assessment (Age andlt;65) 08/24/2017 09:08 [facility] History of Falling in last 3 months? No (0) Confusion or Disorientation? No (0) Intoxicated or Sedated? No (0) Impaired Gait? No (0) Mobility Assist Device Used? No (0) Altered Elimination? No (0) Fall Risk Score 1-2 Points = Low Risk. 3-4 Points = Moderate Risk. 5 or more points = High Risk. 0 Fall Score Greater andgt;= 3? No Note: 0 08/24/2017 09:08 Primary DOC Guide - D. Psychosocial Assessment 08/24/2017 09:08 [facility] Over the Last 2 weeks, how often have you had little interest or pleasure in doing things (0) Not at All Is Psychosocial Assessment Score 3 or more? If score is 3 or more please consult ED Navigator! No Total Psychosocial Assessment Score 0 Note: 0 Over the last 2 weeks, how often have you been feeling down, depressed or hopeless (0) Not at All 08/24/2017 09:08 Primary DOC Guide - E. Family Violence Assessment 08/24/2017 09:08 [facility] Indicators of Neglect No Indicators of Physical Abuse No Indicators of Sexual Abuse No Indicators of Verbal/Emotional Abuse No Within the past year, has anyone ever pushed, shoved, slapped, choked, hit, punched or kicked you: No Within the past year, has anyone ever pressured or forced you to have sexual activities when you did not want to: No Do you feel safe and well cared for: No Is there a partner from a previous or current relationship that is making you feel unsafe now: No 08/24/2017 10:02 Hourly Rounding - Rounding 08/24/2017 [facility] PATIENT NAME: OLIVER CUNNINGHAM [address] [facility] [address] [place] MEDICAL REC #: [id number] [place] [address] EMERGENCY DEPARTMENT CHART EMERGENCY DEPARTMENT PHYSICIAN 10:02 [facility] Position Comfortable Y Safe Environment Y 08/24/2017 10:48 Hourly Rounding - Rounding 08/24/2017 10:49 [facility] Position Comfortable Y Safe Environment Y 08/24/2017 11:07 Hourly Rounding - Rounding 08/24/2017 11:07 [facility] Position Comfortable Y Safe Environment Y 08/24/2017 11:12 Admit/Discharge - Discharge 08/24/2017 11:12 [facility] 08/24/2017 11:12 Admit/Discharge - Ambulated with steady gait home 08/24/2017 11:12 [facility] 08/24/2017 11:12 Admit/Discharge - Discharge prescriptions given to patient 08/24/2017 11:12 [facility] 08/24/2017 11:12 Admit/Discharge - Discharge instruction reviewed 08/24/2017 11:12 [facility] MEDICATIONS IV IV Fluid: B 08/24/2017 09:42 08/24/2017 09:43 [facility] Line #: 1 Fluid: Saline Lock Rate: ml/hr Location: antecubital fossa right Ndl Gauge: 20 # Attempts: 1 Notes: CATHETER FLUSHES WELL,LABS DRAWN IV Fluid: E 08/24/2017 10:50 08/24/2017 10:50 [facility] Line #: 1 Rate: ml/hr Location: antecubital fossa right Ndl Gauge: 20 # Attempts: 1 Notes: CATHETER REMOVED INTACT [facility] PATIENT NAME: OLIVER CUNNINGHAM [address] [facility] [address] [place] MEDICAL REC #: [id number] [place] [address] EMERGENCY DEPARTMENT CHART EMERGENCY DEPARTMENT PHYSICIAN I AND O VITALS VS-ROUTINE Time: 08/24/2017 08:25 B/P: 168/98 - Left Upper Arm - Sitting - Machine Pulse: 97 - Monitor Resp: 16 Sa02: 97 Room Air Temp: 97.50 F - Oral 08/24/2017 08:27 KKF VS-Pain Time: 08/24/2017 08:25 Pain Level: 10 08/24/2017 08:27 KKF VS-GCS Time: 08/24/2017 08:25 08/24/2017 08:27 KKF VS-HT/WT Time: 08/24/2017 08:25 Ht: 180.3 cm Stated Weight: 83 kg Actual 08/24/2017 08:27 KKF VS-Visual Time: 08/24/2017 08:25 08/24/2017 08:27 KKF VS-FHT Time: 08/24/2017 08:25 08/24/2017 08:27 KKF VS-Notes Time: 08/24/2017 08:25 map 122 08/24/2017 08:27 KKF VS-ROUTINE Time: 08/24/2017 08:45 B/P: 147/85 - Left Upper Arm - Sitting - Machine Pulse: 94 - Monitor Resp: 15 Sa02: 97 Room Air Temp: 97.70 F - Oral 08/24/2017 08:49 GOGO VS-Pain Time: 08/24/2017 08:45 08/24/2017 08:49 GOGO VS-GCS Time: 08/24/2017 08:45 08/24/2017 08:49 GOGO VS-HT/WT Time: 08/24/2017 08:45 Weight: 83 kg 08/24/2017 08:49 GOGO VS-Visual Time: 08/24/2017 08:45 08/24/2017 08:49 GOGO VS-FHT Time: 08/24/2017 08:45 08/24/2017 08:49 GOGO VS-Notes Time: 08/24/2017 08:45 08/24/2017 08:49 GOGO ORDERS Discharge patient 08/24/2017 10:49 N/A Ordered: 08/24/2017 10:47 By . Other Reviewed: 08/24/2017 10:49 By . Other [facility] PATIENT NAME: OLIVER CUNNINGHAM [address] MEDICAL REC #: [id number] [place] [address] EMERGENCY DEPARTMENT CHART EMERGENCY DEPARTMENT PHYSICIAN [employer] ORDER: GFRP 08/24/2017 10:05 None Ordered: 08/24/2017 10:05 Completed Time: 08/24/2017 10:05 Results Time: 08/24/2017 10:05 IV hep lock 08/24/2017 09:42 N/A Ordered: 08/24/2017 09:28 By Juan Carlos Segura Completed Time: 08/24/2017 09:42 By Juan Carlos Segura Noted Time: 08/24/2017 09:29 [facility] CBC with diff 08/24/2017 09:49 N/A Ordered: 08/24/2017 09:28 By Juan Carlos Segura Completed Time: 08/24/2017 09:49 By Juan Carlos Segura Noted Time: 08/24/2017 09:42 [facility] Results Time: 08/24/2017 09:48 BMP 08/24/2017 10:05 N/A Ordered: 08/24/2017 09:28 By Juan Carlos Segura Completed Time: 08/24/2017 10:05 By Juan Carlos Segura Noted Time: 08/24/2017 09:42 [facility] Results Time: 08/24/2017 10:05 Liver profile 08/24/2017 10:05 N/A Ordered: 08/24/2017 09:28 By Juan Carlos Segura Completed Time: 08/24/2017 10:05 By Juan Carlos Segura Noted Time: 08/24/2017 09:42 [facility] Results Time: 08/24/2017 10:05 Lipase 08/24/2017 10:05 N/A Ordered: 08/24/2017 09:28 By Juan Carlos Segura Completed Time: 08/24/2017 10:05 By Juan Carlos Segura Noted Time: 08/24/2017 09:42 [facility] Results Time: 08/24/2017 10:05 UA ccms (cath if unable to void in 30 mins) 08/24/2017 10:16 N/A Ordered: 08/24/2017 09:28 By Juan Carlos Segura Completed Time: 08/24/2017 10:16 By Juan Carlos Segura Noted Time: 08/24/2017 10:04 [facility] Question: Lab Urine Specimen Type [facility] PATIENT NAME: OLIVER CUNNINGHAM [address] [facility] [address] [place] MEDICAL REC #: [id number] [place] [address] EMERGENCY DEPARTMENT CHART EMERGENCY DEPARTMENT PHYSICIAN Answer: Clean Catch Question: Also Culture, if indicated by UA results (Y or N) Answer: YES Results Time: 08/24/2017 10:16 CT abd and pel with IV con only 08/24/2017 10:36 N/A Ordered: 08/24/2017 09:28 By Juan Carlos Segura Completed Time: 08/24/2017 10:36 By Juan Carlos Segura Indication: Abdominal Pain Noted Time: 08/24/2017 10:15 Question: Patient has history of true RCM allergy? Answer: NO Morphine (IV)*(4mg/ml) DOSE:4 mg IV 08/24/2017 09:42 N/A Ordered: 08/24/2017 09:28 By Juan Carlos Segura Completed Time: 08/24/2017 09:42 By Juan Carlos Segura Noted Time: 08/24/2017 09:29 [facility] Zofran (IV)*(2mg/ml) DOSE: 4 mg IV 08/24/2017 09:42 N/A Ordered: 08/24/2017 09:28 By Juan Carlos Segura Completed Time: 08/24/2017 09:42 By Juan Carlos Segura Noted Time: 08/24/2017 09:29 [facility] DISCHARGE Diagnosis: Acute on chronic abdominal pain 08/24/2017 10:48 Disposition: Time: 08/24/2017 10:47 Discharge Time: 08/24/2017 11:13 Type: Discharge Condition: Stable for admission/discharge/transfer after emergency evaluation/treatment Category: *NOT APPLICABLE Referral: 08/24/2017 10:48 Admit Physician: . Other PRESCRIPTIONS Mckee 5 mg-325 mg tablet 08/24/2017 10:47 [facility] PATIENT NAME: OLIVER CUNNINGHAM Dr. MEDICAL REC #: [id number] [place] [address] EMERGENCY DEPARTMENT CHART EMERGENCY DEPARTMENT PHYSICIAN SI q4-6h abdopminal pain for 3 days Additional Instructions: ICD 10 R10.8 Dispense: 12 / Refills: CHARGES SIGNATURE Loulou Kang RN SXM BART FREEMANF Juan Carlos Segura MD [id number] LAMAR BOWENS [facility] PATIENT NAME: MARISAOLIVER Dr. MEDICAL REC #: [id number] [place] [address] EMERGENCY DEPARTMENT CHART EMERGENCY DEPARTMENT PHYSICIAN UA COMPLETE Collected: 08/24/2017 Status: F Source: [facility] 10:03 AM [facility] REPOSITORY Order Comment: [place]: M TYPE CODE TESTS RESULT OUT OF REFERENCE UNITS RANGE LAB L600.20882 UA COLOR Normal DK YELLOW LAB L600.37654 CLEAR UA Normal APPEARANCE CLEAR LAB L600.53416 1.005-1.030 UA SPEC Normal GRAV 1.009 LAB L600.77654 5-6 UA PH Normal 5.0 LAB L600.81237 NORMAL MG/DL UA GLUCOSE Normal NEGATIVE LAB L600.50170 NEGATIVE MG/DL UA KETONE Normal NEGATIVE LAB L600.51483 NEGATIVE MG/DL UA Normal BILIRUBIN NEGATIVE LAB L600.28527 NORMAL MG/DL UA Normal UROBILINOGEN NORMAL LAB L600.61415 NEGATIVE MG/DL UA PROTEIN Normal NEGATIVE LAB L600.13316 NEGATIVE RONAK/UL UA BLOOD Normal NEGATIVE LAB L600.90947 NEGATIVE UA NITRITE Normal NEGATIVE LAB L600.09069 NEGATIVE BALTAZAR/uL UA LK Normal ESTERASE NEGATIVE LAB L600.75184 N UA COMMENT Normal * Result Comment: *MICROSCOPIC NOT PERFORMED BASED ON CHEMICAL DETERMINATIONS. Performed By: #### L600.25272 #### [facility] [address] [place] [address] CBC W/DIFF Collected: 08/24/2017 Status: F Source: [facility] 9:35 AM [facility] REPOSITORY Order Comment: [place]: M TYPE CODE TESTS RESULT OUT OF RANGE REFERENCE UNITS LAB L200.89938 4.5-11.0 K/CU MM WBC Normal 8.6 LAB L200.78362 4.50-6.00 M/CU MM Low RBC 4.49 LAB L200.08513 13.5-17.5 G/DL HGB Normal 14.1 LAB L200.58029 41.0-53.0 % HCT Normal 41.5 LAB L200.49398 80.0-99.0 fl MCV Normal 92.4 LAB L200.40363 32.0-36.0 GM/DL MCHC Normal 34.0 LAB L200.11272 11-14.5 RDW Normal 12.2 LAB L200.96900 9.4-12.4 Low MPV 8.5 LAB L200.88730 150-450 K/CU MM PLT Normal 221 LAB L200.77612 45-75 % NEUTROPHILS Normal % 73.3 LAB L200.18840 Less than 2 % IMMATURE Normal GRAN % 0.2 LAB L200.89954 20-40 % Low LYMPH % 17.9 LAB L200.54938 2-10 % MONOCYTE % Normal 7.7 LAB L200.10439 0-5 % EOSINOPHIL Normal % 0.6 LAB L200.98438 0-2 % BASOPHIL % Normal 0.3 LAB L200.13628 2.0-8.3 K/CU MM NEUTROPHIL Normal ABS 6.30 LAB L200.60160 Less than 2 K/CU MM IMMATR GRAN Normal ABS 0.00 LAB L200.85801 0.9-4.4 K/CU MM LYMPH ABS Normal 1.50 LAB L200.15825 0.1-1.1 K/CU MM MONO ABS Normal 0.70 LAB L200.01333 0-0.5 K/CU MM EOS ABS Normal 0.10 LAB L200.98939 0-0.2 K/CU MM BASO ABS Normal 0.00 LAB L200.43019 Less than 1 % NRBC Normal 0.0 Performed By: #### L200.02187 #### [facility] [address] [place] [address] BMP Collected: 08/24/2017 Status: F Source: [facility] 9:35 AM [facility] REPOSITORY Order Comment: [place]: TYPE CODE TESTS RESULT OUT OF RANGE REFERENCE UNITS LAB L500.54807 136-145 MMOL/L Normal NA 139 LAB L500.88199 3.5-5.1 MMOL/L Normal K 3.7 LAB L500.96864 98-107 MMOL/L Normal CL 103 LAB L500.86198 21-32 MMOL/L Normal CO2 28 LAB L500.37966 5-16 MMOL/L Normal AGAP 8 LAB L500.96182 70-100 MG/DL High GLU 147 Result Comment: 70-100- Normal Fasting; 100-125 Impaired Fasting; greater than 126 on more than one result- Diabetes. ADA guidelines. Results may be falsely elevated after the administration of Sulfapyridine. Results may be falsely depressed after the administration of Sulfasalazine. LAB L500.71362 7-26 MG/DL Normal BUN 8 LAB L500.79782 0.670-1.170 MG/DL Normal CREAT 0.723 Result Comment: Patients receiving either N-Acetylcysteine (NAC) or Metamizole prior to venipuncture, may have falsely depressed results. LAB L500.19678 15-24 Low BUN/CREA 11 LAB L500.23550 8.5-10.1 MG/DL Low CALCIUM TOTAL 8.4 Performed By: #### L500.60096, L500.90686, L500.05670, L500.25908 #### [facility] [address] [place] [address] GFR EST Collected: 08/24/2017 Status: F Source: [facility] 9:35 AM [facility] REPOSITORY Order Comment: [place]: M TYPE CODE TESTS RESULT OUT OF RANGE REFERENCE UNITS LAB L500.45963 ML/MIN Normal IF non-AFR Greater than AMER 60 LAB L500.26613 ML/MIN Normal IF Greater than AMER 60 Performed By: #### L500.59882, L500.04965, L500.53454, L500.51617 #### [facility] [address] [place] [address] LIVER Collected: 08/24/2017 Status: F Source: [facility] 9:35 AM [facility] REPOSITORY Order Comment: [place]: M TYPE CODE TESTS RESULT OUT OF RANGE REFERENCE UNITS LAB L500.93642 6.0-8.5 GM/DL TP Normal 6.4 LAB L500.65158 3.2-5.0 GM/DL Normal ALBUMIN 3.6 LAB L500.33686 2.2-4.2 GM/DL Normal GLOBULIN 2.8 LAB L500.58448 0.8-2.0 Normal A/G RATIO 1.3 LAB L500.55340 0.2-1.0 MG/DL Normal BILI TOTAL 0.4 LAB L500.29464 0.00-0.20 MG/DL Normal BILI DIRECT 0.12 LAB L500.57206 8-34 U/L Normal SGOT (AST) 21 Result Comment: RESULTS MAY BE FALSELY DEPRESSED AFTER THE ADMINISTRATION OF SULFASALAZINE AND/OR SULFAPYRIDINE. LAB L500.07408 13-61 IU/L Normal SGPT (ALT) 26 Result Comment: RESULTS MAY BE FALSELY DEPRESSED AFTER THE ADMINISTRATION OF SULFASALAZINE AND/OR SULFAPYRIDINE. LAB L500.55731 45-117 U/L Normal ALK PHOS 71 Performed By: #### L500.76865, L500.20679, L500.12788, L500.84782 #### [facility] [address] [place] [address] LIPASE Collected: 08/24/2017 Status: F Source: [facility] 9:35 AM [facility] REPOSITORY Order Comment: [place]: TYPE CODE TESTS RESULT OUT OF RANGE REFERENCE UNITS LAB L500.52570 73-393 U/L Normal LIPASE 120 Performed By: #### L500.16864, L500.75641, L500.22031, L500.97770 #### [facility] [address] [place] [address] DOSETRACK Observed: 08/24/2017 Status: UNK Source: [facility] 9:09 AM [facility] REPOSITORY Test Dose report. Name: MARISA Panchal Accession Number: [id number] Dose Type: CT Exam: ABPIV-C Max CTDIVol: 8.74 mGy DLP: 463.58 mGy*cm CT 3 CT ABD/PEL W IV CONTRAST ONLY [id number] [id number] [id number] 6100.2913144495 244.2881929025 078021 6.1 Abdomen Pelvis Abdomen 618.5500 618.5500 1 [id number] 6100.5420272824 61.0413372568 440942 6.1 Abdomen Pelvis Abdomen 618.5500 618.5500 1 [id number] 6960.3729308614 1372.1652079007 P5-56452 6.1 Abdomen Pelvis Abdomen 8.4195056000 463.9970895620 40.0000 1.3800 530.4083 575.8024 970810 1 53.32 [facility] PATIENT NAME: OLIVER CUNNING[address]AM [address] MEDICAL REC #: [id number] [place] [address] ADMIT DATE: DISCHARGE DATE: DOSETRACK ATTENDING PHY: Zack Cox,Emergency Physicia [facility] PATIENT NAME: OLIVER CUNNING[address] MEDICAL REC #: [id number] [place] [address] ADMIT DATE: DISCHARGE DATE: DOSETRACK ATTENDING PHY: Zack Cox,Emergency Physicia CT ABD/PEL W IV Observed: 08/24/2017 Status: F Source: [facility] [employer] CONTRAST ONLY 9:09 AM [facility] REPOSITORY AN ADDENDUM IS INCLUDED ON THIS REPORT CT ABD/PEL W IV CONTRAST ONLY Ordering Physician: Juan Carlos Segura MD 08/24/2017 9:[address] ABDOMEN AND PELVIS WITH CONTRAST Clinical Statement: Abdominal pain Comparison: None TECHNIQUE: Axial images of the abdomen and pelvis were obtained following the uneventful administration of 100 cc Isovue-300. FINDINGS: Images obtained through the lung bases demonstrate focal reticulonodular opacities peripherally in the left lower lobe, likely infectious or inflammatory in etiology. There is a punctate calcified granuloma in the left lower lobe. The liver is normal in size and contour. There is minimal intrahepatic and extrahepatic biliary duct dilatation felt secondary to prior cholecystectomy. The spleen, pancreas and adrenal glands are unremarkable. Kidneys are symmetric in size and enhancement. There is an 18 mm cyst in left kidney. The ureters are normal in course and caliber. Atherosclerotic calcifications are present within the aorta. The urinary bladder is unremarkable. The prostate gland is borderline enlarged. Patient has undergone prior bilateral inguinal hernia repair. Clips are noted in the inguinal canal bilaterally, likely related to prior vasectomy. The stomach, small bowel and colon are normal in course and caliber. The appendix is normal. There is no intraperitoneal free air, focal fluid collection or pathologic adenopathy. Advanced degenerative disk disease is noted at the lumbosacral junction with bilateral neural foraminal encroachment. IMPRESSION: 1. No acute abnormality. 2. Minimal intrahepatic and extrahepatic biliary duct dilatation is most likely related to prior cholecystectomy. Correlation with lab values recommended. 3. 18 mm left renal cyst. 4. Patient has undergone prior bilateral inguinal hernia repair, otherwise appearing unremarkable. ---- Electronic Signature on File ---- Signed By: Darvin Aly MD [email or web address] Dictated: 08/24/2017 10:24 AM Signed: 08/24/2017 10:29 AM Reported By: DARVIN ALY M.D. Signed By: DARVIN ALY M.D. ADDENDUM: [id number] CT/ABPIV-C Reticulonodular infiltrate in the left lower lobe is likely infectious or inflammatory in etiology. This was included within the findings of the report however was inadvertently omitted from the impression. ---- Electronic Signature on File ---- Signed By: Darvin Aly MD [email or web address] Dictated: 08/24/2017 10:37 AM Signed: 08/24/2017 10:38 AM Reported By: DARVIN ALY M.D. Signed By: DARVIN ALY M.D. DOSETRACK Observed: 08/24/2017 Status: UNK Source: [facility] 9:09 AM [facility] REPOSITORY Test Dose report. Name: MARISA Panchal Accession Number: [id number] Dose Type: CT Exam: ABPIV-C Max CTDIVol: 16.99 mGy DLP: 781.16 mGy*cm CT 3 CT ABD/PEL W IV CONTRAST ONLY [id number] 16.7968841894 99598.3874011165 6100.6926100792 61.4365019579 946573 6.1 Abdomen Pelvis Abdomen 5.0000 618.5500 1 76161.2650274345 6100.0593923181 61.1538842304 121533 6.1 Abdomen Pelvis Abdomen 5.0000 618.5500 1 [id number] 9610.7404844206 2538.6532519240 P5-92725 6.1 Abdomen Pelvis Abdomen 16.9695299158 781.6912334216 40.0000 0.9800 459.8000 800.0000 282903 1 38.28 [facility] PATIENT NAME: OLIVER CUNNINGHAM [address] MEDICAL REC #: [id number] [place] [address] ADMIT DATE: DISCHARGE DATE: 08/24/17 DOSEGISELLE ATTENDING PHY: Juan Carlos Segura MD [facility] PATIENT NAME: OLIVER CUNNINGHAM [address] MEDICAL REC #: [id number] [place] [address] ADMIT DATE: DISCHARGE DATE: 08/24/17 DOSEGISELLE ATTENDING PHY: Juan Carlos Segura MD HEMOGRAM W/ AUTODIFF Collected: 08/22/2017 Status: F Source: [facility] [email or web address] 7:39 PM SYSTEM REPOSITORY TYPE CODE TESTS RESULT OUT OF REFERENCE UNITS RANGE LAB IWBC 3.6-10.7 10*3/uL WBC High 17.1 LAB RBC 4.40-5.90 10*6/uL RBC Normal 4.70 LAB HGB 13.0-18.0 g/dL Hemoglobin Normal 15.4 LAB HCT 40.0-52.0 % Hematocrit Normal 43.8 LAB MCV 80.0-98.0 fL MCV Normal 93.3 LAB MCH 26.0-34.0 pg MCH Normal 32.7 LAB MCHC 32.0-36.0 % MCHC Normal 35.1 LAB RDW 11.5-14.5 % RDW Normal 12.7 LAB PLT 140-440 10*3/uL Platelet Normal 290 LAB MPV 7.4-10.4 fL Low MPV 7.0 LAB GRAN% 40.0-80.0 % Granulocytes Normal 80.0 LAB LYMP% 20.0-40.0 % Low Lymphocytes 13.1 LAB MONO% 2.0-10.0 % Monocytes Normal 6.3 LAB EOS% 1.0-6.0 % Low Eosinophils 0.2 LAB BAS% 0.0-2.0 % Basophils Normal 0.4 LAB ANC 1.8-7.0 10*3/uL Abs High Neutrophile Cnt 13.7 LAB ALC 1.0-4.3 10*3/uL Abs Lymph Cnt Normal 2.2 LAB AMC 0.0-0.8 10*3/uL Abs Monocyte High Cnt 1.1 LAB AEC 0.0-0.5 10*3/uL Abs Eosin Cnt Normal 0.0 LAB ABC 0.0-0.2 10*3/uL Abs Baso Cnt Normal 0.1 Performed By: #### HEMDF, CMP3, LIPA3 #### [facility] [address] [address] COMP METABOLIC PANEL Collected: 08/22/2017 Status: F Source: [facility] 7:39 PM SYSTEM REPOSITORY TYPE CODE TESTS RESULT OUT OF RANGE REFERENCE UNITS LAB NA3 137-145 mmol/L Sodium Normal 140 LAB K3 3.5-5.1 mmol/L Normal Potassium 3.5 LAB CL3 98-107 mmol/L Chloride Normal 103 LAB CO23 22-30 mmol/L Carbon Normal Dioxide 24 LAB ANIN3 NA Anion Gap 13 LAB GLUC3 70-100 mg/dL High Glucose 102 LAB BUN3 7-20 mg/dL Urea Normal Nitrogen 7 LAB CRET3 0.52-1.25 mg/dL Normal Creatinine 0.68 LAB GF3BR >60 mL/min eGFR > 60.0 LAB GF3WR >60 mL/min eGFR OTHER > 60.0 Result Comment: Source- MDRD equation with creatinine calibration to IDNE(NKDEP) eGFR not recommended for drug dose adjustment LAB CA3 8.4-10.2 mg/dL Calcium Normal 9.2 LAB ALB3 3.5-5.0 g/dL Albumin, Serum Normal 4.7 LAB TP3 6.3-8.2 g/dL Total Protein Normal 7.6 LAB BILT3 0.2-1.3 mg/dL Normal Bilirubin,Total 0.8 LAB ALKP3 38-126 U/L Alkaline Normal Phosphatase 80 LAB ALT3 13-69 U/L ALT (SGPT) Normal 29 LAB AST3 15-46 U/L AST (SGOT) Normal 29 Performed By: #### HEMDF, CMP3, LIPA3 #### [facility] [address] [place] [phone] LIPASE Collected: 08/22/2017 Status: F Source: [facility] 7:39 PM SYSTEM REPOSITORY TYPE CODE TESTS RESULT OUT OF RANGE REFERENCE UNITS LAB LIPA3 23-300 [IU]/L Normal Lipase 70 Performed By: #### HEMDF, CMP3, LIPA3 #### [facility] [address] [place] [phone] URINALYSIS,MACRO Collected: 08/22/2017 Status: F Source: [facility] 7:39 PM SYSTEM REPOSITORY TYPE CODE TESTS RESULT OUT OF REFERENCE UNITS RANGE LAB APPUR Clear NA Appearance clear LAB COLUR Lt. Yellow NA Color yellow LAB USG 1.005-1.030 NA Specific Normal [place],Urine 1.015 LAB UPH 5.0-8.0 NA pH,Urine Normal 5.0 LAB ULUK Negative NA Leukocytes NEG LAB UNIT Negative NA Nitrites NEG LAB UPRO Negative mg/dL Total Protein,Urine NEG LAB UGLU Negative mg/dL Glucose,Urine NORM LAB UKET Negative mg/dL Ketone,Urine Trace LAB UURO 0-1 mg/dL Urobilinogen NORM LAB UBIL Negative NA Bilirubin,Ur NEG LAB UBLD Negative {RBC}/uL Occult Blood,Ur NEG Performed By: #### UAMAC #### [facility] [address] [place] [address], [place] [address] Observed: 08/22/2017 Status: F Source: [facility] 7:39 PM SYSTEM REPOSITORY Order Comment: Specimen Source Comment:Urine, clean catch CULTURE URINE --> Status: F No growth (<1,000 CFU/ml). Performed By: #### C/UR #### [facility] [address] [place] [address] ED DOC Observed: 08/21/2017 Status: UNK Source: [facility] 3:45 PM [facility] [place] REPOSITORY This is a preliminary report only, as the practitioner review and authentication has not occurred. ED DOC Observed: 08/21/2017 Status: UNK Source: [facility] 3:45 PM [facility] [employer] REPOSITORY PHYSICIAN ASSESSMENT [employer] Patient: OLIVER CUNNINGHAM Sex: M : 1960 Age: 57 yr Account No: [id number] Registration Date: 13:14 08/21/2017 REGISTRATION ED Number: [id number] TRIAGE Priority: 3 - Urgent Complaint: Abdominal Pain Complaint: Urination, Unable to Stated Complaint: Abd pain x15 months, unable to urinate starting yesterday. Seen multiple (20+) surgeons for abdominal pain. Arrival Date: 08/21/2017 13:14 Triage Date: 08/21/2017 13:16 Mode of Arrival: *Privately Owned Vehicle WC: N Language: Cypriot Transport: Ambulatory/Walk In BED D42 In: 08/21/2017 14:32:38 08/21/2017 14:32:38 KMTN D42 (Removed From) Out: 08/21/2017 14:33:29 08/21/2017 14:33:29 KMGA [facility] PATIENT NAME: OLIVER CUNNINGHAM [address] MEDICAL REC #: [id number] [place] [address] EMERGENCY DEPARTMENT CHART EMERGENCY DEPARTMENT PHYSICIAN PROVIDERS TRIAGE HISTORY ALLERGIES Allergic To: PCN - Rash 08/21/2017 13:22 TPJ Allergic To: mobic - Rash 08/21/2017 13:22 TPJ Allergic To: lyrica - agitation of nerves 08/21/2017 13:22 TPJ Allergic To: cymbalta - palpitations 08/21/2017 13:22 TPJ Allergic To: abaugio - plugs arteries 08/21/2017 13:22 TPJ Allergic To: copaxone - Rash 08/21/2017 13:22 TPJ Allergic To: hydrochlorothiazide - syncope 08/21/2017 13:22 TPJ Allergic To: Reglan - chest pain 08/21/2017 13:22 TPJ Allergic To: trulance - Unknown 08/21/2017 13:22 TPJ ILLNESS Illness: Emphysema 08/21/2017 13:22 TPJ Illness: scleraderma 08/21/2017 13:22 TPJ Illness: multiple sclerosis 08/21/2017 13:22 TPJ PAST SURGERY HIST Surgery: Hernia Repair 08/21/2017 13:22 TPJ Surgery: Cholecystectomy 08/21/2017 13:22 TPJ Surgery: lower back 08/21/2017 13:22 TPJ [facility] PATIENT NAME: OLIVER CUNNINGHAM [facility] [address] MEDICAL REC #: [id number] [place] [address] EMERGENCY DEPARTMENT CHART EMERGENCY DEPARTMENT PHYSICIAN Surgery: bilateral shoulder 08/21/2017 13:22 TPJ Surgery: Tonsillectomy 08/21/2017 13:22 TPJ PAST SOCIAL HIST Social History: Alcohol - None 08/21/2017 13:22 TPJ Social History: Recreational Drugs - None 08/21/2017 13:22 TPJ Social History: Smoker-1/2 PPD 08/21/2017 13:22 TPJ Social History: Have you traveled in the past month? Where denies 08/21/2017 13:22 TPJ IMMUNIZATIONS Immunization: Flu Vaccine-no 08/21/2017 13:22 TPJ NURSING ASSESSMENT ASSESSMENT NOTES TREATMENT MEDICATIONS IV I AND O VITALS VS-ROUTINE Time: 08/21/2017 13:16 B/P: 159/101 - Right Upper Arm - Sitting - Machine [facility] PATIENT NAME: OLIVER CUNNINGHAM [address] [facility] [address] [facility] [address] [place] MEDICAL REC #: [id number] [place] [address] EMERGENCY DEPARTMENT CHART EMERGENCY DEPARTMENT PHYSICIAN Pulse: 108 - Monitor Resp: 15 Sa02: 96 Room Air Temp: 97.90 F - Oral 08/21/2017 13:22 TPJ VS-Pain Time: 08/21/2017 13:16 Pain Level: 9 08/21/2017 13:22 TPJ VS-GCS Time: 08/21/2017 13:16 Visual: 4 Verbal: 5 Motor: 6 GCS Total: 15 08/21/2017 13:22 TPJ VS-HT/WT Time: 08/21/2017 13:16 Ht: 71 in. Weight: 182 lbs 08/21/2017 13:22 TPJ VS-Visual Time: 08/21/2017 13:16 08/21/2017 13:22 TPJ VS-FHT Time: 08/21/2017 13:16 08/21/2017 13:22 TPJ VS-Notes Time: 08/21/2017 13:16 map 123 08/21/2017 13:22 TPJ ORDERS LBE (Left Before Exam) 08/21/2017 15:45 N/A Ordered: 08/21/2017 15:45 By Bebo Torres DISCHARGE Diagnosis: LWT 0 08/21/2017 15:45 Disposition: Time: 08/21/2017 15:45 Discharge Time: 08/21/2017 15:45 Type: LBE Condition: LBE CALLED FOR PT TWICE WITH NO ANSWER Referral: 08/21/2017 15:45 RER PRESCRIPTIONS CHARGES SIGNATURE Bebo Torres TECH 3 RER KEAGAN LOCK RN TPJ [facility] PATIENT NAME: OLIVER CUNNINGHAM [address] [facility] [facility] [address] MEDICAL REC #: [id number] [place] [address] EMERGENCY DEPARTMENT CHART EMERGENCY DEPARTMENT PHYSICIAN [facility] PATIENT NAME: OLIVER CUNNINGHAM [address] [facility] [address] [facility] [address] [place] MEDICAL REC #: [id number] [place] [address] EMERGENCY DEPARTMENT CHART EMERGENCY DEPARTMENT PHYSICIAN EMERGENCY REPORT Observed: 08/18/2017 Status: F Source: [facility] 9:16 AM [facility] REPORT NAME ACCOUNT SEX AGE ADMIT DISCHARGE PT MED. RECORD# NUMBER DATE DATE TYPE MARISA [id number] Grazyna 57 08/11/17 08/11/17 3 OLIVER Panchal [id number] ROOM: ER DATE OF : 1960 DICTATING PHYSICIAN: Rik Sterling HISTORY OF PRESENT ILLNESS: This is a 57-year-old white male complaining of chronic bilateral lower quadrant abdominal pain. He rates the pain 10 on a severity scale of 1 to 10. He describes the pain as sharp in nature. It does not radiate anywhere. He states he has had this bilateral lower quadrant pain ever since May 2016 when he had bilateral inguinal hernia repair with mesh. He has seen about 20 surgeons by his estimate since then and none of them will take the mesh out. He seems to be convinced that the mesh is what is causing his pain. He states that one time they found infection outside of my bladder. He called is cystitis. He states that this pain today feels the same. He thinks he needs a strong antibiotic. He states that every day the pain gets a little bit worse. He has complained of some associated nausea, but denies any vomiting. He denies any diarrhea. He states that his logistics and planning manager, Dr. Tompkins, admitted him to [facility] last month in [place], [place]. The logistics and planning manager had him see a surgeon at that time, but they also did not feel there was any surgical indication at that point. He had a colonoscopy that visit and it came back okay. He states he has had three colonoscopies in the last 2 years. Those have all been normal. He has had 3 to 4 CAT scans this past year as well. All of those were negative. He did have a MRI of the abdomen and pelvis in December of last year, which showed a fatty liver, but no acute disease. PAST MEDICAL HISTORY: The patient states he has a past medical history of MS, scleroderma. Reviewing the old charts, he has a history of anxiety, hypertension. The patient does also admit to a history of COPD. PAST SURGICAL HISTORY: Cholecystectomy, bilateral inguinal hernia repair, T&A. He has had previous orthopedic surgeries. ALLERGIES: Penicillin, ranitidine, omeprazole, fenofibrate, Celexa, Crestor, Cymbalta, Welchol, Mobic, Lyrica, statins and Xifaxan. SOCIAL HISTORY: He is a smoker of 1 pack per day. He denies any use of alcohol. He lives at home alone. REVIEW OF SYSTEMS: The patient does admit to abdominal pain and nausea. He denies any vomiting, diarrhea, constipation, chest pain, shortness of breath, cough, sputum, wheezing, headache, numbness, unsteady gait, weakness, neck or back pain, joint pain, skin rashes, swelling. He denies any fevers, sweats or chills. He denies Page 1 of 3 OLIVER CUNNINGHAM Emergency Room Report any dysuria, frequency, hematuria. Further review of systems is negative. PHYSICAL EXAMINATION: The patient is alert and oriented x3. The patient is in no acute distress. Pleasant and cooperative. HEENT: Head appears atraumatic. Pupils are equal and reactive to light. Red reflex is intact bilaterally. Extraocular muscles are intact. No conjunctival injection. Nose exhibits no rhinorrhea or epistaxis. Mucous membranes are moist. No pharyngeal erythema. Uvula is midline and elevates. NECK: Supple. Trachea is midline. No JVD or lymphadenopathy. No posterior cervical tenderness. No nuchal rigidity. LUNGS: Lungs are clear to auscultation in all lung menjivar. No adventitious sounds are noted. No accessory muscle use. CV: Heart rate and rhythm are regular without murmur. ABDOMEN: Soft with some mild diffuse tenderness across the bilateral lower quadrants of the abdomen. No guarding or rigidity. No distension. No hepatosplenomegaly. He does have well healed surgical scars to both lower quadrants. Bowel sounds are present x4 quadrants and normoactive. BACK: No midline or paraspinal region tenderness. No increased paraspinal muscle rigidity. Negative Lloyds sign. EXTREMITIES: No edema or cyanosis. Peripheral pulses are intact. No motor or sensory deficits are noted. Hand breaker layer are strong and symmetric. SKIN: Skin is warm and dry. No diaphoresis or rash. NEURO: The patient is alert and oriented x4. No motor or sensory deficits noted. Speech is normal. Normal affect. Pleasant and cooperative. DIAGNOSTIC DATA: Presently I do have the CBC back. The white count is normal at 10.1 with hemoglobin of 15.2 and hematocrit of 43.8. Platelet count is 255,000. Urinalysis is normal. Microscopic is not indicated. Nitrite was negative. Leukocyte esterase is negative. Specific gravity is 1.01. EMERGENCY DEPARTMENT COURSE AND TREATMENT: Presently, I did explain to him that based on his exam findings, I did not want to radiate him again with another CAT scan and he is agreeable with this. He is still convinced he might have a urinary tract infection, so I suggested we do some screening blood work and a urinalysis. He is happy with that plan, so we will see what those results show. Complete metabolic panel is pending and then we will reevaluate. DIAGNOSIS: Abdominal pain. Dictated By: Rik Sterling DO 08/11/17 08:07 JOB #: [id number] Transcribed By: saurav 08/11/17 19:24 Electronically signed by: E-Sign: Dr. Rik Sterling D.O. 08/18/17 09:15 Page 2 of 3 OLIVER CUNNINGHAM Emergency Room Report Page 3 of 3 OLIVER CUNNINGHAM Emergency Room Report EMERGENCY REPORT Observed: 08/18/2017 Status: F Source: [facility] 9:16 AM [facility] REPORT NAME ACCOUNT SEX AGE ADMIT DISCHARGE PT MED. RECORD# NUMBER DATE DATE TYPE MARISA [id number] 08/11/17 08/11/17 3 OLIVER Panchal [id number] ROOM: ER DATE OF : 1960 DICTATING PHYSICIAN: Rik Sterling ADDENDUM DIAGNOSTIC DATA: Urinalysis and CBC are as noted above. Sodium was 135, potassium 3.9, chloride 99, CO2 is 30. BUN 13, creatinine 0.8. Glucose was 142. Liver functions all came back within normal limits. Anion gap was 10. EMERGENCY DEPARTMENT COURSE AND TREATMENT: At this point, I explained to the patient that antibiotics were not indicated. I explained the complications of inappropriate antibiotics including C. diff and he did verbalize understanding. I will place him on Bentyl 20 mg 1 p.o. every 6 hours as needed for abdominal pain. He had complained of some nausea, so I will give him a prescription for Zofran ODT 4 mg 1 every 8 hours as needed for nausea and vomiting, dispense #15 with no refill. I am looking at his allergies, and I do not see an allergy to that. DIAGNOSIS: Abdominal pain. PLAN/DISPOSITION: He is to follow up with this surgeon that he has an appointment to see next month in [place]. He can follow up with his logistics and planning manager as scheduled as well. He does see a logistics and planning manager at [facility], Dr. Tompkins. At this point, I see no acute problems. I see no acute reason to do a CT abdomen and pelvis. He has had at least four CAT scans last year of his abdomen and pelvis and he had an MRI as well, so I explained to him the radiation exposure and he is agreeable. The patient was discharged in a clinically stable condition. Nursing notes were reviewed. Dictated By: Rik Sterling DO 08/11/17 08:47 JOB #: [id number] Transcribed By: saurav 08/11/17 19:39 Electronically signed by: E-Sign: Dr. Rik Sterling D.O. 08/18/17 09:15 Page 1 of 2 OLIVER CUNNINGHAM Emergency Room Report TROPONIN I Collected: 08/17/2017 Status: F [facility]30 AM SYSTEM REPOSITORY TYPE CODE TESTS RESULT OUT OF RANGE REFERENCE UNITS LAB TROP I <0.120 ng/mL TROP I < 0.003 Result Comment: NPV: 96-99% of patients with cTnI values < 0.04 ng/mL were associated with conditions other than myocardial infarction (non-MA). PPV: 65-73% of patients with cTnI values >= 0.04 ng/mL were diagnosed with MA. Performed By: #### TROP I #### [facility] [address] [place] [address], [phone] XR CHEST PA+LAT Observed: 08/16/2017 Status: F [facility]: [facility] 10:18 PM SYSTEM REPOSITORY EXAMINATION XR CHEST 2 VIEW PA+LAT/ED CLINICAL HISTORY chest pain Technologist Notes COMPARISON Chest radiograph 03/25/17 FINDINGS Lungs are clear. Unremarkable cardiomediastinal silhouette. IMPRESSION No significant change to suggest an acute cardiopulmonary abnormality. MACRO NONE COMPLETE BLOOD COUNT Collected: 08/16/2017 Status: F Source: [facility] W/DIFF 9:49 PM SYSTEM REPOSITORY TYPE CODE TESTS RESULT OUT OF REFERENCE UNITS RANGE LAB WBC 4.5-11.5 K/uL WBC 10.7 LAB RBC 4.50-5.90 M/uL RBC 4.64 LAB HGB 13.9-16.3 g/dL HGB 15.1 LAB HCT 41.0-53.0 % HCT 43.7 LAB MCV 80-100 fL MCV 94 LAB MCH 26.0-34.0 pg MCH 32.5 LAB MCHC 32.0-35.9 g/dL MCHC 34.6 LAB PLT 150-400 K/uL PLT 257 LAB RDW 11.5-14.5 % RDW-CV 12.3 LAB MPV 8.5-11.5 fL MPV 9.3 LAB CPnT 31.0-76.0 % NEUTROPHILS 66.3 LAB CPIY 24.0-44.0 % Low LYMPHOCYTES 23.9 LAB CPmO 2.0-11.0 % MONOCYTES 8.7 LAB CPeO 0.1-4.0 % EOSINOPHIL 0.8 LAB CPbA <=1.9 % BASOPHILS 0.3 LAB nt 1.50-8.00 K/uL NEUTROPHIL # 7.06 LAB ly 1.00-4.80 K/uL LYMPHOCYTES # 2.55 LAB mo 0.20-1.00 K/uL MONOCYTE # 0.93 LAB eo 0.00-0.70 K/uL EOSINOPHIL # 0.09 LAB ba 0.00-0.20 K/uL BASOPHIL # 0.03 Performed By: #### CBCD #### [facility] [address] [place] [address], [phone] BASIC METABOLIC PANEL Collected: 08/16/2017 Status: F Source: [facility] 9:49 PM SYSTEM REPOSITORY TYPE CODE TESTS RESULT OUT OF REFERENCE UNITS RANGE LAB GLU 68-110 mg/dL GLU High 175 LAB NA3 135-148 mmol/L NA 135 LAB POT 3.3-5.3 mmol/L K 3.6 LAB CO2 21-30 mmol/L CO2 29 LAB CHLOR 97-111 mmol/L CL 98 LAB BUN 8-22 mg/dL BUN 11 LAB CREAT 0.80-1.30 mg/dL Low CREAT 0.79 LAB CA 8.4-10.4 mg/dL CA 9.2 LAB ANION GAP 5-13 ANION GAP 12 LAB eGFR >=60 mL/min/1.73 sqm ESTIMATED GFR 100 (CKD-EPI) Performed By: #### CH8 #### [facility] [address] [place], [id number] [address] ABD/PELVIS ED I/V Observed: 08/15/2017 Status: F Source: [facility] W/ CONTRAST 4:48 PM [employer] SYSTEM REPOSITORY EXAMINATION CT ABD/PELVIS ED I/V [facility] W//ED CLINICAL HISTORY RLQ/suprapubic pain Technologist Notes COMPARISON None TECHNIQUE Contiguous axial images were obtained through the abdomen and pelvis from the level of the diaphragmatic domes through the pubic symphysis following bolus administration of intravenous contrast. MPR sagittal and coronal reconstructions were obtained from the axial data. Before infusion of intravenous contrast, radiology personnel investigated the possibility of an allergic history and of any history of reaction to iodinated contrast material. Comments: None INTRA-PROCEDURE MEDICATION Contrast Agent [id number] 100ml Bottle 100 milliliter 08/15/2017 INTRAVENOUS FINDINGS The lung bases are generally hyperinflated. A cluster of opacities in the lateral basilar aspect left lower lobe includes a small consolidative opacity and adjacent centrilobular micro nodules. The liver, spleen, adrenal glands, and pancreas have normal appearances. The left kidney has a cyst. There are cholecystectomy clips. Extensive atherosclerotic plaque involve the infrarenal aorta and iliac arteries. The iliac arteries are small in caliber bilaterally. Evaluation of bowel is limited by lack of oral contrast. The small bowel is normal in caliber. The appendix is normal in appearance. No free fluid is present dependently in the pelvis. Lobular hypodensities at the superior aspects of the inguinal canals bilaterally are likely related to prior inguinal hernia repairs. Degenerative disk changes are present L5-S1. IMPRESSION 1. No focal inflammatory processes are identified in the abdomen. 2. Cluster of opacities in basilar aspect lower lobe left lung suggesting combination pneumonia/bronchiolitis. 3. Atherosclerosis. MACRO NONE COMPLETE BLOOD COUNT Collected: 08/15/2017 Status: F Source: THE [facility] W/DIFF 4:06 PM SYSTEM REPOSITORY TYPE CODE TESTS RESULT OUT OF REFERENCE UNITS RANGE LAB WBC 4.5-11.5 K/uL WBC 8.9 LAB RBC 4.50-5.90 M/uL RBC 4.59 LAB HGB 13.9-16.3 g/dL HGB 15.0 LAB HCT 41.0-53.0 % HCT 42.9 LAB MCV 80-100 fL MCV 94 LAB MCH 26.0-34.0 pg MCH 32.7 LAB MCHC 32.0-35.9 g/dL MCHC 35.0 LAB PLT 150-400 K/uL PLT 239 LAB RDW 11.5-14.5 % RDW-CV 12.0 LAB MPV 8.5-11.5 fL MPV 9.1 LAB CPnT 31.0-76.0 % NEUTROPHILS 65.6 LAB CPIY 24.0-44.0 % LYMPHOCYTES 26.1 LAB CPmO 2.0-11.0 % MONOCYTES 7.2 LAB CPeO 0.1-4.0 % EOSINOPHIL 0.8 LAB CPbA <=1.9 % BASOPHILS 0.3 LAB nt 1.50-8.00 K/uL NEUTROPHIL # 5.81 LAB ly 1.00-4.80 K/uL LYMPHOCYTES # 2.31 LAB mo 0.20-1.00 K/uL MONOCYTE # 0.64 LAB eo 0.00-0.70 K/uL EOSINOPHIL # 0.07 LAB ba 0.00-0.20 K/uL BASOPHIL # 0.03 Performed By: #### CBCD #### [facility] [address] [place] [address], [phone] BASIC METABOLIC PANEL Collected: 08/15/2017 Status: F Source: [facility] 4:06 PM SYSTEM REPOSITORY TYPE CODE TESTS RESULT OUT OF REFERENCE UNITS RANGE LAB GLU 68-110 mg/dL GLU 103 LAB NA3 135-148 mmol/L NA 136 LAB POT 3.3-5.3 mmol/L K 4.0 LAB CO2 21-30 mmol/L CO2 26 LAB CHLOR 97-111 mmol/L CL 101 LAB BUN 8-22 mg/dL BUN 8 LAB CREAT 0.80-1.30 mg/dL CREAT 0.91 LAB CA 8.4-10.4 mg/dL CA 9.3 LAB ANION GAP 5-13 ANION GAP 13 LAB eGFR >=60 mL/min/1.73 sqm ESTIMATED GFR 94 (CKD-EPI) Performed By: #### CH8, LIP, HEPATIC #### [facility] [address] [place], [place], LIPASE Collected: 08/15/2017 Status: F Source: [facility] 4:06 PM SYSTEM REPOSITORY TYPE CODE TESTS RESULT OUT OF RANGE REFERENCE UNITS LAB LIP <128 IU/L LIP 19 Performed By: #### CH8, LIP, HEPATIC #### [facility] [address] [place] [address], HEPATIC FUNCTION Collected: 08/15/2017 Status: F Source: [facility] PANEL 4:06 PM SYSTEM REPOSITORY TYPE CODE TESTS RESULT OUT OF REFERENCE UNITS RANGE LAB ALB 3.4-5.1 g/dL ALB 4.2 LAB DBILI 0.10-0.30 mg/dL DBIL 0.10 LAB TBILI 0.1-1.5 mg/dL TBIL 0.7 LAB ALKPHOS 40-200 IU/L ALK 51 LAB ALT2 7-40 IU/L ALT 19 LAB AST2 7-40 IU/L AST 19 LAB tp 5.8-8.1 g/dL TP 6.3 Performed By: #### CH8, LIP, HEPATIC #### [facility] [address] [place] [address], URINALYSIS,AUTO-IN OFFICE Collected: Status: F Source: THE 08/11/2017 3:[address] [facility] SYSTEM REPOSITORY Order Comment: TEST PERFORMED AT: [facility] [address] [place] [address] [place], [place] [address] TYPE CODE TESTS RESULT OUT OF RANGE REFERENCE UNITS LAB Color, Urine COLOR, POC Yellow LAB CLARITY CLARITY, POC Clear LAB Ph,urine 5.0-8.0 PH, URINE POC 6.0 LAB SPECIFIC GRAVITY 1.005 - 1.030 SPECIFIC 1.010 GRAVITY, POC LAB PROTEIN Negative Abnormal PROTEIN, 30 URINE POC LAB GLUCOSE Negative Abnormal GLUCOSE, 100 URINE POC LAB KETONES Negative Abnormal KETONES, Trace URINE POC LAB BILIRUBIN Negative BILIRUBIN, Negative URINE POC LAB UROBILINOGEN 0.2 - 1.0 UROBILINOGEN, 1.0 URINE POC LAB BLOOD Negative BLOOD, URINE Negative POC LAB LEUKOCYTES Negative Abnormal LEUKOCYTES, Large URINE POC LAB NITRITES Negative Abnormal NITRITES, Positive URINE POC Performed By: #### [id number] #### [facility] [address] [place] [address] [place], [place] URINALYSIS Collected: 08/11/2017 Status: F Source: THE 2:[address] [facility] [facility] SYSTEM REPOSITORY Order Comment: A negative leukocyte esterase AND negative nitrite test or absence of pyuria (urine WBC count <= 5-10) make a UTI (urinary tract infection) very unlikely in a non-neutropenic adult (<=5% likelihood in many studies). A positive leukocyte esterase, nitrite and/or pyuria is a nonspecific result. This can be seen in conditions other than a UTI e.g. asymptomatic bacteriuria, gynecologic infections, sexually transmitted infections, and noninfectious conditions (positive predictive value for UTI around 50%) TYPE CODE TESTS RESULT OUT OF RANGE REFERENCE UNITS LAB UCOLOR Yellow U COLOR Margo LAB UAPP Clear U APPEAR Clear LAB U PH 5.0-8.0 U PH 6.0 LAB USG U SG 1.014 LAB UPROTEIN Negative mg/dL U PROTEIN Negative LAB U BLOOD Negative U BLOOD Negative LAB URINBILI Negative U BILI Negative LAB U UROBILI 0.1 - 1.0 mg/dL Abnormal U UROBILI 4.0 LAB UKETONE Negative mg/dL U KETONE Negative LAB U LEUK Negative U LEUK Negative LAB UNITR Negative Abnormal U NITRITE Positive LAB UGLU Negative mg/dL GLUCOSE, Negative URINE Performed By: #### UAC #### [facility] [address] [place] [address], #### C URINE #### [facility] [address] [place] [address] [place], [place] Observed: 08/11/2017 Status: F Source: [facility] URINE CULTURE 2:18 PM SYSTEM REPOSITORY C URINE: No growth of greater than 1,000 CFU/ml Performed By: #### UAC #### [facility] [address] [place] [address], #### C URINE #### [facility] [address] [place] [address] [place], [place] CBC Collected: 08/11/2017 Status: F Source: [facility] 7:49 AM [facility] REPOSITORY TYPE CODE TESTS RESULT OUT OF RANGE REFERENCE UNITS LAB CBC(LOINC) CBC Result Comment: CBC-COMPLETE BLOOD COUNT LAB WBC(LOINC) 4.5 - 10.8 x 10EE3/UL WBC 10.1 LAB RBC(LOINC) 4.50 - x 10EE6/UL 6.00 RBC 4.68 LAB HEMOGLOBIN(LOINC) 13.0 - g/dl 17.5 HEMOGLOBIN 15.2 LAB HEMATOCRIT(LOINC) 40.0 - % 52.0 HEMATOCRIT 43.8 LAB MCV(LOINC) 81 - 98 fl MCV 94 LAB MCH(LOINC) 27 - 33 pg MCH 33 LAB MCHC(LOINC) 32 - 36 X10 3 MCHC 35 LAB RDW/CV(LOINC) 12.0 - % 15.6 RDW/CV 12.5 LAB PLATELET(LOINC) 150 - 450 x10EE3/UL PLATELET 255 LAB MPV(LOINC) 6.4 - 10.5 fl MPV 7.2 Result Comment: AUTOMATED DIFFERENTIAL LAB NEUT %(LOINC) 46.0 - 76.0 % NEUT % 69.5 LAB LYMPH %(LOINC) 20.0 - 45.0 % LYMPH % 20.8 LAB MONOS %(LOINC) 0.0 - 10.0 % MONOS % 8.7 LAB EO %(LOINC) 0.0 - 7.0 % EO % 0.9 LAB BASO %(LOINC) 0.0 - 2.0 % BASO % 0.1 LAB Lymph #(LOINC) 0.80 - 2.80 x10EE3/U L Lymph # 2.10 LAB Neut #(LOINC) 1.50 - 7.10 x10EE3/U L Neut # 7.00 LAB Mellette #(LOINC) 0.20 - 1.00 x10EE3/U L Mellette # 0.90 LAB EO #(LOINC) 0.00 - 0.50 x10EE3/U L EO # 0.10 LAB Baso #(LOINC) 0.00 - 0.10 x10EE3/U L Baso # 0.00 LAB MANUAL DIFF(LOINC) MANUAL DIFF N/A LAB MORPHOLOGY(LOINC ) MORPHOLOGY N/A Result Comment: {CD] Performed By: #### [id number] #### [facility],[address] [place], [place] [id number] CMP WITH EGFR Collected: 08/11/2017 Status: F Source: [facility] 7:49 AM [facility] REPOSITORY TYPE CODE TESTS RESULT OUT OF RANGE REFERENCE UNITS LAB CMP with eGFR(LOINC) CMP with eGFR Result Comment: COMPREHENSIVE METABOLIC PANEL LAB SODIUM(LOINC) 136 - 145 mmol/l SODIUM Low 135 LAB POTASSIUM(LOINC) 3.5 - 5.1 mmol/L POTASSIUM 3.9 LAB CHLORIDE(LOINC) 98 - 107 mmol/L CHLORIDE 99 LAB CO2(LOINC) 21.0 - mmol/L 31.0 CO2 30.0 LAB GLUCOSE(LOINC) 74 - 106 mg/dl GLUCOSE High 142 LAB BUN(LOINC) 6 - 20 mg/dl BUN 13 LAB CREATININE(LOINC) 0.7 - 1.3 mg/dl CREATININE 0.8 LAB AST/SGOT(LOINC) 13 - 39 U/L AST/SGOT Low 12 LAB ALK PHOS(LOINC) 38 - 126 U/L ALK PHOS 59 LAB CALCIUM(LOINC) 8.6 - mg/dl 10.2 CALCIUM 9.0 LAB TOTAL 6.4 - 8.3 g/dl PROTEIN(LOINC) TOTAL PROTEIN 6.5 LAB ALBUMIN(LOINC) 3.4 - 4.8 g/dL ALBUMIN 4.0 LAB GLOBULIN(LOINC) 1.5 - 3.8 G/DL GLOBULIN 2.5 LAB A/G RATIO(LOINC) 0.9 - 1.6 A/G RATIO 1.6 LAB TOTAL BILI(LOINC) 0.0 - 1.5 mg/dl TOTAL BILI 0.3 LAB B/C RATIO(LOINC) 0 - 30 ratio B/C RATIO 16 LAB ALT/SGPT(LOINC) 10 - 40 U/L ALT/SGPT 15 LAB ANION GAP(LOINC) 10 - 20 mmol/L ANION GAP 10 LAB AGE(LOINC) years AGE 57 LAB eGFR(LOINC) 60 - 999 ML/MINUTE eGFR >60 LAB eGFR(AA)(LOINC) 60 - 999 ML/MINUTE eGFR(AA) >60 Result Comment: ACCORDING TO THE NATIONAL KIDNEY DISEASE EDUCATION PROGRAM(NKDE), A NORMAL eGFR IS A VALUE GREATER THAN OR EQUAL TO 60 ML/MIN/1.73 SQ METERS. CHRONIC KIDNEY DISEASE: <60mL/MIN/1.73 SQ METERS KIDNEY FAILURE: <15mL/MIN/1.73 SQ METERS THIS TEST SHOULD ONLY BE USED FOR PATIENTS 18 YEARS OF AGE AND OLDER. Performed By: #### [id number] #### [facility],[address] [place] [address] URINALYSIS Collected: 08/11/2017 Status: F Source: [facility] 7:41 AM [facility] REPOSITORY TYPE CODE TESTS RESULT OUT OF REFERENCE UNITS RANGE LAB URINALYSIS (LOINC) URINALYSIS Result Comment: URINALYSIS LAB Specimen Type(LOINC) Specimen Clean Type catch LAB Color(LOINC) NORMAL: YELLOW Color p.yel LAB Clarity(LOINC) NORMAL: CLEAR Clarity clear LAB ph(LOINC) NORMAL: 5.0-8.0 ph 7 LAB Protein(LOINC) NORMAL: NEGATIVE Protein NEG LAB Glucose(LOINC) NORMAL: NORMAL Glucose NORM LAB Ketone(LOINC) NORMAL: NEGATIVE Ketone NEG LAB Bilirubin(LOINC) NORMAL: NEGATIVE Bilirubin NEG LAB Blood(LOINC) NORMAL: NEGATIVE Blood NEG LAB Urobilinog(LOINC) NORMAL: NORMAL Urobilinog NORM LAB Sp [place](LOINC) NORMAL: 1.010-1.030 Sp [place] 1.010 LAB Nitrite(LOINC) NORMAL: NEGATIVE Nitrite NEG LAB Leukocytes(LOINC) NORMAL: NEGATIVE Leukocytes NEG LAB Microscopic(LOINC ) Microscopic NOT INDICATED Performed By: #### [id number] #### [facility],[address] [place] [address] URINALYSIS,MACRO Collected: 08/10/2017 Status: F Source: [facility] 11:15 AM SYSTEM REPOSITORY TYPE CODE TESTS RESULT OUT OF REFERENCE UNITS RANGE LAB APPUR Clear Appearance clear LAB COLUR Lt. Yellow Color dk.yel LAB USG 1.005-1.030 Specific [place],Urine 1.015 LAB UPH 5.0-8.0 pH,Urine 7.0 LAB ULUK Negative Leukocytes NEG LAB UNIT Negative Nitrites POS LAB UPRO Negative mg/dL Total Protein,Urine NEG LAB UGLU Negative mg/dL Glucose,Urine NORM LAB UKET Negative mg/dL Ketone,Urine NEG LAB UURO 0-1 mg/dL Urobilinogen 1 LAB UBIL Negative Bilirubin,Ur 1 LAB UBLD Negative {RBC}/uL Occult Blood,Ur NEG Performed By: #### UAMAC #### The performing lab is in the report. CR ABDOMEN SERIES W/ Observed: 08/10/2017 Status: F Source: [facility] CHEST 1 VIEW 11:08 AM SYSTEM REPOSITORY Patient Name: OLIVER CUNNINGHAM Diagnostic Radiology Exam Date/Time 08/10/2017 11:03:15 EDT Exam CR Abdomen Series w/ Chest 1 View Ordering Physician VINNY CARRILLO MADALINA Accession Number [id number] CPT4 Codes 30102 () Reason For Exam r/o obstruction Report Clinical indication: Abdominal pain Comparison: 07/14/2017 A frontal view of the chest was obtained. The cardiac silhouette and mediastinal contours are not enlarged and the lungs show no edema or focal infiltrate. Supine and upright views of the abdomen were obtained. A moderate amount of fecal content is present throughout the colon, increased in volume compared to the prior exam. There is minimal small bowel air present. Cholecystectomy clips are noted in the right upper quadrant and appear unchanged from the prior study. No free intraperitoneal air is identified. There are no pathologic intra-abdominal calcifications. The osseous structures appear grossly intact. IMPRESSION: Moderate amount of colonic feces, which is greater in volume than on the prior exam Report Dictated on Final Dictated: 08/10/2017 11:08 am Dictating Physician: MD CHOI DIANE Signed Date and Time: 08/10/2017 11:10 am Signed by: MD CHOI DIANE Transcribed Date and Time: 08/10/2017 11:08 HEMOGRAM Collected: 08/10/2017 Status: F Source: [facility] 10:22 AM SYSTEM REPOSITORY TYPE CODE TESTS RESULT OUT OF REFERENCE UNITS RANGE LAB IWBC 3.6-10.7 10*3/uL WBC 9.4 LAB RBC 4.40-5.90 10*6/uL RBC 4.48 LAB HGB 13.0-18.0 g/dL Hemoglobin 14.6 LAB HCT 40.0-52.0 % Hematocrit 42.8 LAB MCV 80.0-98.0 fL MCV 95.6 LAB MCH 26.0-34.0 pg MCH 32.5 LAB MCHC 32.0-36.0 % MCHC 34.0 LAB RDW 11.5-14.5 % RDW 12.6 LAB PLT 140-440 10*3/uL Platelet 257 LAB MPV 7.4-10.4 fL Low MPV 6.7 Performed By: #### HEMOG, CMP3 #### The performing lab is in the report. COMP METABOLIC PANEL Collected: 08/10/2017 Status: F Source: [facility] 10:22 AM SYSTEM REPOSITORY TYPE CODE TESTS RESULT OUT OF REFERENCE UNITS RANGE LAB NA3 137-145 mmol/L Sodium 137 LAB K3 3.5-5.1 mmol/L Potassium 3.8 LAB CL3 98-107 mmol/L Chloride 100 LAB CO23 22-30 mmol/L Carbon Dioxide 29 LAB ANIN3 Anion Gap 8 LAB GLUC3 70-100 mg/dL Glucose High 113 LAB BUN3 7-20 mg/dL Urea Nitrogen 9 LAB CRET3 0.52-1.25 mg/dL Creatinine 0.63 LAB GF3BR >60 mL/min eGFR >60.0 LAB GF3WR >60 mL/min eGFR OTHER >60.0 Result Comment: Source- MDRD equation with creatinine calibration to IDMS(NKDEP) eGFR not recommended for drug dose adjustment LAB CA3 8.4-10.2 mg/dL Calcium 8.9 LAB ALB3 3.5-5.0 g/dL Albumin, Serum 3.9 LAB TP3 6.3-8.2 g/dL Total Protein 6.7 LAB BILT3 0.2-1.3 mg/dL Bilirubin,Total 0.3 LAB ALKP3 38-126 U/L Alkaline Phosphatase 62 LAB ALT3 13-69 U/L ALT (SGPT) 28 LAB AST3 15-46 U/L AST (SGOT) 20 Performed By: #### HEMOG, CMP3 #### The performing lab is in the report. CR CHEST PORTABLE Observed: 08/07/2017 Status: F Source: [facility] 3:32 PM SYSTEM REPOSITORY Patient Name: OLIVER CUNNINGHAM Diagnostic Radiology Exam Date/Time 08/07/2017 14:25:00 EDT Exam CR Chest Portable Ordering Physician ERNESTO JONES DANIEL M Accession Number [id number] CPT4 Codes 29345 () Reason For Exam dyspnea Report Portable chest 08/07/2017: Clinical Information: Dyspnea. Findings: A single AP portable view of the chest was obtained at 1420 hours. Comparison was made to the prior study 06/18/2017. The trachea is midline. The heart is not enlarged. No focal areas of consolidation or volume loss are seen. There are no pleural effusions. The pulmonary vasculature does not appear congested. The visualized bony structures are intact. Impression: No acute process. Report Dictated on Final Dictating Physician: MD CUNHA RISA Signed Date and Time: 08/07/2017 3:33 pm Signed by: MD CUNHA RISA Transcribed Date and Time: 08/07/2017 3:34 CT ABDOMEN/PELVIS W/O Observed: 08/04/2017 Status: F Source: [facility] CONTRAST 12:00 PM SYSTEM REPOSITORY Patient Name: OLIVER CUNNINGHAM CT Exam Date/Time 08/04/2017 11:33:[address] Abdomen/Pelvis (No PO, No IV) Ordering Physician MD ENCARNACION KEVIN G Accession Number [id number] CPT4 Codes 84219 (CT Abdomen/Pelvis (No PO, No IV)) Reason For Exam flank pain, eval for stone Report Examination: CT abdomen/pelvis Indication: flank pain, eval for stone Technique: Axial CT images of the abdomen/pelvis were obtained without oral or IV contrast at 3 mm intervals. Images were acquired from the lung bases through the symphysis pubis. Coronal and sagittal reconstructions were also provided for review. Findings: Cholecystectomy changes are present. There is a cyst within the mid to lower pole of the left kidney which measures approximately 1.8 cm. There is no hydronephrosis, renal stones or perinephric fat stranding. The bladder is grossly unremarkable. There is atherosclerotic calcification of the aorta and iliac vessels. No abdominal or pelvic adenopathy is demonstrated. The large and small bowel, stomach and appendix are unremarkable. Degenerative changes of the spine are worst at L5/S1. The lung bases are grossly clear. Impression: No hydronephrosis, renal stones or perinephric fat stranding. Slightly prominent soft tissue density in the right and left inguinal regions of uncertain etiology. This may be secondary to prior inguinal herniorrhaphy. Report Dictated on Final Dictating Physician: PRISCILLA NUNN Signed Date and Time: 08/04/2017 12:04 pm Signed by: PRISCILLA NUNN Transcribed Date and Time: 08/04/2017 12:05 URINALYSIS, COMPLETE Collected: 07/30/2017 Status: F Source: [place] 4:48 PM [facility] REPOSITORY Order Comment: How was Urine Obtained? CLEAN CATCH TYPE CODE TESTS RESULT OUT OF RANGE REFERENCE UNITS LAB L400.3000 Yellow COLOR Normal Yellow LAB L400.3050 Clear Normal CLARITY Sl. Cloudy LAB L400.3200 Normal mg/dl Normal GLUCOSE, UR Normal LAB L400.3300 Negative mg/dL Normal BILIRUBIN URINE Negative LAB L400.3400 Negative mg/dl Normal KETONE UR Negative LAB L400.3465 1.002-1.030 Normal SP.GR. DIPSTX 1.010 LAB L400.3550 5.0 - 8.0 pH UR Normal 7.0 LAB L400.3600 Negative mg/dl PROT Normal DIPSTX Negative LAB L400.3700 Normal mg/dl Normal UROBILI Normal LAB L400.3750 Negative Normal NITRITE UR Negative LAB L400.3780 Negative /ul High 10 OCCULT BLOOD-UR LAB L400.3800 Negative /ul High LEUK 25 ESTERASE LAB L400.4050 0-5 /hpf WBC Normal 0-5 SEEN LAB L400.4100 0-5 /hpf Normal RBC-UA 0-5 SEEN LAB L400.4150 0-5 /hpf SQUAM 0 Normal EPI SEEN LAB L400.4300 None Seen /hpf 0 Normal BACTERIA SEEN LAB L400.4350 <or=2+ /hpf 0 Normal MUCUS, URINE SEEN Performed By: #### L400.0001 #### [facility] [address] [place], [place], [address] PSA,TOTAL- DIAGNOSTIC Collected: 07/30/2017 Status: F Source: [place] 4:48 PM [facility] REPOSITORY Order Comment: ADD BMP TG4 6 A TYPE CODE TESTS RESULT OUT OF RANGE REFERENCE UNITS LAB L501.9940 0.0-4.0 ng/mL PSA, Normal DIAGNOSTIC 1.90 Result Comment: This test was performed using the TPSA assay method for the [employer] chemistry system. Values obtained with different assay methods cannot be used interchangably. When changing PSA assays in the course of monitoring a patient, additional sequential testing should be carried out to confirm baseline values. Performed By: #### L501.9940, L500.2500 #### [facility] [address] [place], [place], [address] BASIC METABOLIC Collected: 07/30/2017 Status: F Source: [place] PRO[place] (BMP) 4:48 PM [facility] REPOSITORY Order Comment: ADD BMP TG4 6 A TYPE CODE TESTS RESULT OUT OF RANGE REFERENCE UNITS LAB L501.0100 74-106 mg/dL Normal GLU 106 Result Comment: Fasting Glucose result from 100 to 125 mg/dL suggests IMPAIRED HOMEOSTASIS per A.D.A. criteria. Please note revised GLUCOSE reference range effective 2017. LAB L501.1000 7-18 mg/dL Normal BUN 8 LAB L501.1100 0.70-1.30 mg/dL Normal CREAT,SERUM 0.81 Result Comment: The validity of the calculated GFR AND GFRAA in patients over 70 years has not been determined. Clinical correlation is essential. LAB L501.1110 >60 mL/min Normal EST GFR 105 Result Comment: Non- GFR Calc LAB L501.1115 >60 mL/min Normal EST GFR - AA 127 Result Comment: GFR Calc LAB L501.1300 10-20 RATIO Low BUN/CRE 9.9 LAB L501.2200 8.5-10.1 mg/dL Normal CA 8.9 LAB L501.5300 136-145 mmol/L Low NA 131 LAB L501.5600 3.5-5.1 mmol/L Normal K 3.7 LAB L501.5900 98-107 mmol/L Low CL 94 LAB L501.6100 21.0-32.0 mmol/L Normal CO2 29.0 LAB L501.6200 5-15 Normal GAP 8 Performed By: #### L501.9940, L500.2500 #### [facility] [address] [place], [place], [address] Observed: 07/26/2017 Status: F Source: [place] C URINE 12:55 PM [facility] REPOSITORY Final Report: No growth Performed By: #### [id number] #### TOY Microbiology Subsection [facility] [place] [address] UA COMPLETE Collected: 07/26/2017 Status: F Source: [place] 11:48 AM [facility] REPOSITORY Order Comment: Straight Cath as needed TYPE CODE TESTS RESULT OUT OF RANGE REFERENCE UNITS LAB 22095592( Yellow LOINC) Normal UA Color Yellow LAB 73633108( Clear LOINC) Normal UA Clarity Clear LAB 80775463( Negative LOINC) Normal UA Glucose Negative LAB 58353338( Negative LOINC) Normal UA Bili Negative LAB 43743236( Negative LOINC) Normal UA Ketones Negative LAB 24506356( 1.003-1.030 LOINC) Normal UA Spec Grav 1.008 LAB 40735064( 4.6-8.0 LOINC) Normal UA pH 6.0 LAB 74862235( Negative LOINC) Normal UA Protein Negative LAB 71489308( mg/dL LOINC) Normal UA Urobilinogen Negative LAB 47391270( Negative LOINC) Normal UA Nitrite Negative LAB 47453897( Negative LOINC) Normal UA Blood Negative LAB 87685456( Negative LOINC) Normal UA Leuk Est Negative LAB 68448344( 0-3 /HPF LOINC) Normal UA RBC 0-3 LAB 88281381( 0-5 /HPF LOINC) Normal UA WBC 0-5 LAB 13849529( 0-2 /LPF LOINC) Normal UA Hyal Cast 0-2 LAB 07739631( Trace /LPF LOINC) UA Mucous Abnormal Trace Performed By: #### [id number] #### [place] [address] CBC W/ AUTO DIFF Collected: 07/26/2017 Status: F Source: [place] 11:03 AM [facility] REPOSITORY TYPE CODE TESTS RESULT OUT OF RANGE REFERENCE UNITS LAB 99068619(L 3.6-11.0 E3/mcL OINC) Normal WBC 9.6 LAB 28915406(L 3.90-6.10 E6/mcL OINC) Normal RBC 4.93 LAB 52815420(L 13.5-18.0 G/DL OINC) Normal Hgb 16.2 LAB 92997547(L 42.0-52.0 % OINC) Normal Hct 47.0 LAB 11911871(L 11.5-14.5 % OINC) Normal RDW 13.0 LAB 86521895(L 27.0-31.0 pg OINC) High MCH 32.9 LAB 41686008(L 33.0-37.0 G/DL OINC) Normal MCHC 34.5 LAB 80422384(L 78.0-100.0 fL OINC) Normal MCV 95.3 LAB 58073073(L 7.4-11.0 fL OINC) Low MPV 7.1 LAB 07881487(L 130-400 E3/mcL OINC) Normal Platelet 271 Performed By: #### [id number] #### TOY [employer] [facility] [place] [id number] AUTO DIFF Collected: 07/26/2017 Status: F Source: [place] 11:03 AM [facility] REPOSITORY Order Comment: Order Added by Discern Expert. TYPE CODE TESTS RESULT OUT OF RANGE REFERENCE UNITS LAB 79994883(L 37.0-75.0 % OINC) Normal Neutro Auto 74.5 LAB 10602942(L 20.0-55.0 % OINC) Low Lymph Auto 16.5 LAB 26604035(L 0.0-10.0 % OINC) Normal Mellette Auto 7.9 LAB 85529514(L 0.0-11.0 % OINC) Normal Eos Auto 0.3 LAB 09655375(L 0.0-2.0 % OINC) Normal Basophil Auto 0.8 LAB 12733365(L 1.4-6.5 E3/mcL OINC) High Neutro 7.1 Absolute LAB 70424733(L 1.2-3.4 E3/mcL OINC) Normal Lymph Absolute 1.6 LAB 82184251(L 0.0-0.7 E3/mcL OINC) High Mellette Absolute 0.8 LAB 35211595(L 0.0-0.7 E3/mcL OINC) Normal Eos Absolute 0.0 LAB 31248772(L 0.0-0.2 E3/mcL OINC) Normal Basophil 0.1 Absolute Performed By: #### [id number] #### TOY [employer] [facility] [place] [address] BMP Collected: 07/26/2017 Status: F Source: [place] 11:03 AM [facility] REPOSITORY TYPE CODE TESTS RESULT OUT OF RANGE REFERENCE UNITS LAB 65139699(L 70-99 mg/dL OINC) High Glucose Lvl 135 LAB 44318233(L 8.4-10.2 mg/dL OINC) Calcium Normal Lvl 9.0 LAB 87046713(L 136-145 mEq/L OINC) Low Sodium Lvl 133 LAB 11917105(L 3.5-5.1 mEq/L OINC) Normal Potassium Lvl 3.7 LAB 11665863(L 98-107 mEq/L OINC) Chloride Normal 99 LAB 80096486(L 24.0-30.0 mEq/L OINC) CO2 Normal 25.8 LAB 19887118(L 7-18 mg/dL OINC) BUN Normal 9 LAB 7515323(LO 0.6-1.3 mg/dL INC) Normal Creatinine 0.8 LAB 72799199(L 5.4-30.0 ratio OINC) Normal BUN/Creat Ratio 11.2 Performed By: #### [id number] #### TOY [employer] [facility] [place] [address] EGFR Collected: 07/26/2017 Status: F Source: [place] 11:03 AM [facility] REPOSITORY Order Comment: Order added by Discern Expert. TYPE CODE TESTS RESULT OUT OF RANGE REFERENCE UNITS LAB 38850522(LO mL/min/1.73 INC) m2 Normal eGFR >60 LAB 54112545(LO mL/min/1.73 INC) m2 Normal eGFR AA >60 Performed By: #### [id number] #### TOY [employer] [facility] [place] [id number] PROGRESS Observed: 07/19/2017 Status: COMPLETED Source: [place] 10:19 AM [facility] REPOSITORY HNO ID: [id number] Author: Genesis Grewal Service: (none) Author Type: Physician Type: Progress Notes Filed: 07/19/2017 1:04 PM Note Text: PROGRESS NOTES PATIENT NAME: Oliver Cunningham Assessment ASSESSMENT AND PLAN The patient is a 57-year-old male with the below mentioned history of chronic inguinal pain which started after bilateral open inguinal hernia repair surgery performed at an outside facility. On examination I do not appreciate any obvious hernias so I believe that the hernia repairs are structurally sound however I suspect his pain may be related to nerve involvement or nerve irritation due to mesh location/positioning. I recommended that he be seen in the main campus for further evaluation at the hernia center. I suspect he would benefit from dermatome mapping and might possibly even be a candidate for neurectomy/mesh removal. Follow-up with me will be as needed. He is agreeable to this plan. We will attempt to get him scheduled for an appointment at [facility]. SUBJECTIVE CHIEF COMPLAINT: No chief complaint on file. INTERVAL HISTORY OF PRESENT ILLNESS: The patient is a 57-year-old male who is being seen today for bilateral inguinal pain. The patient states that about a year ago he underwent an open bilateral inguinal hernia repair with mesh. This was performed at an outside hospital in [facility]. Since that surgery. He has been having persistent bilateral inguinal pain which has been almost debilitating. He states that the pain is worse on the right versus left but both sides are quite significant. He has been back to see his surgeon numerous times and has been told that he has no evidence of hernia recurrence and it was thought that his pain might be related to a pinched nerve in his back. Since then he has seen numerous surgeons for various second opinions. He is also seen pain management who believes that this might be related to nerve entrapment. Review of his operative note reveals standard plug and patch bilateral hernia repair. No mention of nerve positioning was noted in the operative note. He is being seen today for another opinion. GENERAL:No weight loss, malaise or fevers., See HPI HEENT:Negative for frequent or significant headaches, Positive for:, Wear glasses or contacts, No changes in hearing or vision, no nose bleeds or other nasal problems CARDIOVASCULAR: Negative for chest pain, Negative for leg swelling, Negative for palpitaions SKIN:Negative for lesions, rash, and itching. RESPIRATORY: Positive for:, Shortness of breath GASTROINTESTINAL: Positive for:, Loss of appetitie and Abdominal pain GENITOURINARY: No history of dysuria, frequency or incontinence. ENDOCRINE: None MUSCULOSKELETAL: Positive for:, joint pain NEUROLOGIC:Positive for: Frequent or recurring Headaches HEMATOLOGIC/LYMPHATIC/IMMUNOLOGIC:Negative for prolonged bleeding, bruising easily or swollen nodes. I have reviewed and agree with the Review of Systems. Genesis Grewal MD HISTORIES: PAST MEDICAL HISTORY Diagnosis Date - Black spider bite 10/2007 - Cervical radiculopathy - CHI (closed head injury) 20 years ago. 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 PAST SURGICAL HISTORY Procedure Laterality Date - AMPUTATION FINGER/THUMB 05/29/10 Traumatic, Right middle, ring and distal - BACK SURGERY HX - CHOLECYSTECTOMY HX - COLONOSCOPY 11/20 - COLONOSCOPY 03/2016 - EGD W/O OR W/BRUSH/WASH 06/24/13 EGD - HERNIA REPAIR HX 2013 umbilical - HERNIA REPAIR HX Bilateral 05/2016 Bilateral Inguinal Hernia repair - ORTHOPEDICS SURGERY HX - PAST SURGICAL HISTORY OF 1993 lumbar diskectomy - REMOVAL GALLBLADDER 1998 laparoscopic - REMOVE TONSIL AND ADENOI UNDER AGE 13 remote - ROTATOR CUFF REPAIR 05/24/11 Right Shoulder - ROTATOR CUFF REPAIR 07/10/11 Left shoulder - TONSILLECTOMY HX ALLERGIES: Hydrocodone; Lyrica [Pregabalin]; Aubagio [Teriflunomide]; Bentyl [Dicyclomine Hcl]; Celexa [Citalopram Hydrobromide]; Copaxone [Glatiramer Acetate]; Cymbalta [Duloxetine]; Erythromycin; Fenofibrate; Hctz [Amiloride-Hydrochlorothiazide]; Lipitor [Atorvastatin Calcium]; Miralax [Polyethylene Glycol 3350]; Mobic [Meloxicam]; Morphine; Penicillins; Pravastatin; Prilosec [Omeprazole Magnesium]; Reglan [Metoclopramide Hcl]; Welchol [Colesevelam Hcl]; Xifaxan [Rifaximin] MEDICATIONS: Current Outpatient Prescriptions: predniSONE (DELTASONE) 20 mg tablet Take 1 tablet by mouth twice daily. Melatonin 5 mg tab Take 50 mg by mouth daily at bedtime. Cholestyramine-Aspartame (CHOLESTYRAMINE LIGHT) 4 gram powder 4grams po tid x 11 days for rapid elimination of MS medication, Aubagio linaclotide (LINZESS) 145 mcg cap Take 1 capsule by mouth once daily. ondansetron orally disintegrating (ZOFRAN ODT) 4 mg disintegrating tablet Take 1 tablet by mouth every 4 hours as needed for Nausea/Vomiting. famotidine (PEPCID) 20 mg tablet Take 1 tablet by mouth twice daily. sertraline (ZOLOFT) 50 mg tablet Take 50 mg by mouth once daily. OREGANO OIL ORAL Take by mouth. 2 capsules daily, 400mg ea diphenhydrAMINE (BENADRYL) 25 mg capsule Take 25 mg by mouth every 6 hours as needed. taking 12 capsules daily lubiprostone (AMITIZA) 8 mcg capsule Take 3 capsules by mouth twice daily with meals. aspirin, enteric coated (ASPIRIN, ENTERIC COATED) 81 mg EC tablet Take 81 mg by mouth once daily. venlafaxine (EFFEXOR) 25 mg tablet Take 25 mg by mouth once daily. DOCOSAHEXANOIC ACID/EPA (FISH OIL ORAL) Take 3,000 mg by mouth once daily. potassium chloride ER (K-DUR, KLOR-CON) 20 mEq tablet Take 1 tablet by mouth once daily. docusate sodium (DULCOLAX STOOL SOFTENER, DSS,) 100 mg capsule Take 200 mg by mouth twice daily. magnesium citrate solution Take 296 mL by mouth one time only. Radiopaque PVC Markers-Barium (SITZMARKS) 24 Markers cap Take 2 capsules by mouth as directed. plecanatide 3 mg tab Take 3 mg by mouth once daily. CYANOCOBALAMIN, VITAMIN B-12, (VITAMIN B-12 ORAL) Take by mouth. amLODIPine (NORVASC) 10 mg tablet Take 10 mg by mouth once daily. acetaminophen (TYLENOL) 325 mg tablet Take 650 mg by mouth every 6 hours as needed. VITAMIN E, DL,TOCOPHERYL ACET, (VITAMIN E, DL, ACETATE,) 400 unit capsule Take 400 Units by mouth once daily. LACTOBACILLUS COMBINATION NO.8 (ADULT PROBIOTIC ORAL) Take by mouth once daily. mirtazapine (REMERON) 30 mg tablet Take 1 tablet by mouth daily at bedtime. tiZANidine HCl (ZANAFLEX) 2 mg capsule 1 tab po 3 times a day for truncal spasm nitroglycerin sublingual (NITROQUICK) 0.4 mg SL tablet Dissolve 1 tablet under the tongue as needed. FOR CHEST PAIN. IF NO RELIEF CALL 911 LORAZEPAM 1 mg tablet Take 0.5 mg by mouth twice daily. No current facility-administered medications for this visit. FAMILY HISTORY Problem Relation Age of Onset - Emphysema Mother - Cancer Mother lung/glioblastoma(Brain) - Thyroid Mother - Heart Mother - charcot samir tooth [OTHER] Mother - GBM [OTHER] Mother - Coronary Artery Disease Father MA and CABG - MS [OTHER] Daughter - Lipids Paternal Grandfather - Lipids Brother - Psychiatry Sister - Kidney Disease Daughter - Psychiatry Daughter bipolar disorder Social History Marital status: Spouse name: Years of education: 13 Number of children: 3 Occupational History Occupation Employer Comment [employer]- approved 2012 Social History Main Topics Smoking status: Current Every Day Smoker Packs/day: 0.25 Years: 45.00 Types: Cigarettes Start date: 04/08/1977 Smokeless status: Never Used Alcohol use: No Comment: none Drug use: No Sexual activity: Not Currently Partners with: Female 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 GENERAL: Alert, no distress, cooperative ABDOMEN: Abdomen soft, non-tender, BS normal, No masses or organomegaly GENITALIA MALE: Penis normal, no urethral discharge, scrotum normal to palpation. Bilateral inguinal incisions appear to be well- healed. I do not appreciate any obvious hernias bilaterally however his meshes fairly palpable and seems rather superficial. No signs of overlying skin changes. No obvious numbness or tingling he describes the pain as being along the inguinal regions bilaterally as well as down the DATA: Diagnostic tests reviewed for today's visit: No new labs Genesis Grewal MD CNOV Observed: 07/19/2017 Status: COMPLETED Source: [place] 10:15 AM [facility] REPOSITORY Office Visit (WHITNEY) BEATRIZOLIVER SCHWARTZ ([id number]) 1960 M Date Time Provider Department 07/19/17 10:15 AM GENESIS GREWAL During your visit today, we recorded the following information about you: Genesis Grewal MD 07/19/2017 1:04 PM Signed PROGRESS NOTES PATIENT NAME: Oliver Cunningham Assessment ASSESSMENT AND PLAN The patient is a 57-year-old male with the below mentioned history of chronic inguinal pain which started after bilateral open inguinal hernia repair surgery performed at an outside facility. On examination I do not appreciate any obvious hernias so I believe that the hernia repairs are structurally sound however I suspect his pain may be related to nerve involvement or nerve irritation due to mesh location/positioning. I recommended that he be seen in the main campus for further evaluation at the hernia center. I suspect he would benefit from dermatome mapping and might possibly even be a candidate for neurectomy/mesh removal. Follow-up with me will be as needed. He is agreeable to this plan. We will attempt to get him scheduled for an appointment at [facility]. SUBJECTIVE CHIEF COMPLAINT: No chief complaint on file. INTERVAL HISTORY OF PRESENT ILLNESS: The patient is a 57-year-old male who is being seen today for bilateral inguinal pain. The patient states that about a year ago he underwent an open bilateral inguinal hernia repair with mesh. This was performed at an outside hospital in [facility]. Since that surgery. He has been having persistent bilateral inguinal pain which has been almost debilitating. He states that the pain is worse on the right versus left but both sides are quite significant. He has been back to see his surgeon numerous times and has been told that he has no evidence of hernia recurrence and it was thought that his pain might be related to a pinched nerve in his back. Since then he has seen numerous surgeons for various second opinions. He is also seen pain management who believes that this might be related to nerve entrapment. Review of his operative note reveals standard plug and patch bilateral hernia repair. No mention of nerve positioning was noted in the operative note. He is being seen today for another opinion. GENERAL:No weight loss, malaise or fevers., See HPI HEENT:Negative for frequent or significant headaches, Positive for:, Wear glasses or contacts, No changes in hearing or vision, no nose bleeds or other nasal problemsANDquot; CARDIOVASCULAR: Negative for chest pain, Negative for leg swelling, Negative for palpitaions SKIN:Negative for lesions, rash, and itching. RESPIRATORY: Positive for:, Shortness of breath GASTROINTESTINAL: Positive for:, Loss of appetitie and Abdominal pain GENITOURINARY: No history of dysuria, frequency or incontinence. ENDOCRINE: None MUSCULOSKELETAL: Positive for:, joint pain NEUROLOGIC:Positive for: Frequent or recurring Headaches HEMATOLOGIC/LYMPHATIC/IMMUNOLOGIC:Negative for prolonged bleeding, bruising easily or swollen nodes. I have reviewed and agree with the Review of Systems. Genesis Grewal MD HISTORIES: PAST MEDICAL HISTORY Diagnosis Date - Black spider bite 10/2007 - Cervical radiculopathy - CHI (closed head injury) 20 years ago. 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 PAST SURGICAL HISTORY Procedure Laterality Date - AMPUTATION FINGER/THUMB 05/29/10 Traumatic, Right middle, ring and distal - BACK SURGERY HX - CHOLECYSTECTOMY HX - COLONOSCOPY 11/20 - COLONOSCOPY 03/2016 - EGD W/O OR W/BRUSH/WASH 06/24/13 EGD - HERNIA REPAIR HX 2013 umbilical - HERNIA REPAIR HX Bilateral 05/2016 Bilateral Inguinal Hernia repair - ORTHOPEDICS SURGERY HX - PAST SURGICAL HISTORY OF 1993 lumbar diskectomy - REMOVAL GALLBLADDER 1998 laparoscopic - REMOVE TONSIL AND ADENOI UNDER AGE 13 remote - ROTATOR CUFF REPAIR 05/24/11 Right Shoulder - ROTATOR CUFF REPAIR 07/10/11 Left shoulder - TONSILLECTOMY HX ALLERGIES: Hydrocodone; Lyrica [Pregabalin]; Aubagio [Teriflunomide]; Bentyl [Dicyclomine Hcl]; Celexa [Citalopram Hydrobromide]; Copaxone [Glatiramer Acetate]; Cymbalta [Duloxetine]; Erythromycin; Fenofibrate; Hctz [Amiloride-Hydrochlorothiazide]; Lipitor [Atorvastatin Calcium]; Miralax [Polyethylene Glycol 3350]; Mobic [Meloxicam]; Morphine; Penicillins; Pravastatin; Prilosec [Omeprazole Magnesium]; Reglan [Metoclopramide Hcl]; Welchol [Colesevelam Hcl]; Xifaxan [Rifaximin] MEDICATIONS: Current Outpatient Prescriptions: predniSONE (DELTASONE) 20 mg tablet Take 1 tablet by mouth twice daily. Melatonin 5 mg tab Take 50 mg by mouth daily at bedtime. Cholestyramine-Aspartame (CHOLESTYRAMINE LIGHT) 4 gram powder 4grams po tid x 11 days for rapid elimination of MS medication, Aubagio linaclotide (LINZESS) 145 mcg cap Take 1 capsule by mouth once daily. ondansetron orally disintegrating (ZOFRAN ODT) 4 mg disintegrating tablet Take 1 tablet by mouth every 4 hours as needed for Nausea/Vomiting. famotidine (PEPCID) 20 mg tablet Take 1 tablet by mouth twice daily. sertraline (ZOLOFT) 50 mg tablet Take 50 mg by mouth once daily. OREGANO OIL ORAL Take by mouth. 2 capsules daily, 400mg ea diphenhydrAMINE (BENADRYL) 25 mg capsule Take 25 mg by mouth every 6 hours as needed. taking 12 capsules daily lubiprostone (AMITIZA) 8 mcg capsule Take 3 capsules by mouth twice daily with meals. aspirin, enteric coated (ASPIRIN, ENTERIC COATED) 81 mg EC tablet Take 81 mg by mouth once daily. venlafaxine (EFFEXOR) 25 mg tablet Take 25 mg by mouth once daily. DOCOSAHEXANOIC ACID/EPA (FISH OIL ORAL) Take 3,000 mg by mouth once daily. potassium chloride ER (K-DUR, KLOR-CON) 20 mEq tablet Take 1 tablet by mouth once daily. docusate sodium (DULCOLAX STOOL SOFTENER, DSS,) 100 mg capsule Take 200 mg by mouth twice daily. magnesium citrate solution Take 296 mL by mouth one time only. Radiopaque PVC Markers-Barium (SITZMARKS) 24 Markers cap Take 2 capsules by mouth as directed. plecanatide 3 mg tab Take 3 mg by mouth once daily. CYANOCOBALAMIN, VITAMIN B-12, (VITAMIN B-12 ORAL) Take by mouth. amLODIPine (NORVASC) 10 mg tablet Take 10 mg by mouth once daily. acetaminophen (TYLENOL) 325 mg tablet Take 650 mg by mouth every 6 hours as needed. VITAMIN E, DL,TOCOPHERYL ACET, (VITAMIN E, DL, ACETATE,) 400 unit capsule Take 400 Units by mouth once daily. LACTOBACILLUS COMBINATION NO.8 (ADULT PROBIOTIC ORAL) Take by mouth once daily. mirtazapine (REMERON) 30 mg tablet Take 1 tablet by mouth daily at bedtime. tiZANidine HCl (ZANAFLEX) 2 mg capsule 1 tab po 3 times a day for truncal spasm nitroglycerin sublingual (NITROQUICK) 0.4 mg SL tablet Dissolve 1 tablet under the tongue as needed. FOR CHEST PAIN. IF NO RELIEF CALL 911 LORAZEPAM 1 mg tablet Take 0.5 mg by mouth twice daily. No current facility-administered medications for this visit. FAMILY HISTORY Problem Relation Age of Onset - Emphysema Mother - Cancer Mother lung/glioblastoma(Brain) - Thyroid Mother - Heart Mother - melanie james [OTHER] Mother - GBM [OTHER] Mother - Coronary Artery Disease Father MA and CABG - MS [OTHER] Daughter - Lipids Paternal Grandfather - Lipids Brother - Psychiatry Sister - Kidney Disease Daughter - Psychiatry Daughter bipolar disorder Social History Marital status: Spouse name: Years of education: 13 Number of children: 3 Occupational History Occupation Employer Comment SSD- approved 2012 Social History Main Topics Smoking status: Current Every Day Smoker Packs/day: 0.25 Years: 45.00 Types: Cigarettes Start date: 04/08/1977 Smokeless status: Never Used Alcohol use: No Comment: none Drug use: No Sexual activity: Not Currently Partners with: Female 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 GENERAL: Alert, no distress, cooperative ABDOMEN: Abdomen soft, non-tender, BS normal, No masses or organomegaly GENITALIA MALE: Penis normal, no urethral discharge, scrotum normal to palpation. Bilateral inguinal incisions appear to be well- healed. I do not appreciate any obvious hernias bilaterally however his meshes fairly palpable and seems rather superficial. No signs of overlying skin changes. No obvious numbness or tingling he describes the pain as being along the inguinal regions bilaterally as well as down the DATA: Diagnostic tests reviewed for today's visit: No new labs Genesis Grewal MD Referring Provider: SELF [[id number]] Allergies As of Date: 07/19/2017 Noted Allergy Reaction HYDROCODONE 12/17/2013 8 - GI Upset Comments: Feels like bleeding Inside stomach LYRICA (PREGABALIN) 07/04/2015 5 - Intolerance AUBAGIO (TERIFLUNOMIDE) 04/25/2017 14 - Other: See Comments Comments: Passed out BENTYL (DICYCLOMINE HCL) 01/05/2016 14 - Other: See Comments CELEXA (CITALOPRAM HYDROBROMIDE) 04/28/2012 14 - Other: See Comments Comments: Terrible headaches. COPAXONE (GLATIRAMER ACETATE) 08/24/2013 2 - Rash 9 - Itching CYMBALTA (DULOXETINE) 08/04/2012 14 - Other: See Comments Comments: chest pain, abnormal sensation/feeling in chest ERYTHROMYCIN 02/14/2017 14 - Other: See Comments Comments: turns everything to stone inside my bowels FENOFIBRATE 08/25/2013 5 - Intolerance Comments: chest pain and numbness HCTZ (AMILORIDE-HYDROCHLOROTHIAZI*12/24/2015 14 - Other: See Comments Comments: Tripping, falling, no sense of balance LIPITOR (ATORVASTATIN CALCIUM) 12/17/2013 14 - Other: See Comments Comments: ruq PAIN MIRALAX (POLYETHYLENE GLYCOL 3350)07/10/2016 7 - Swelling 8 - GI Upset Comments: Swollen abdomen - go lightly MOBIC (MELOXICAM) 07/26/2010 9 - Itching MORPHINE 12/01/2013 14 - Other: See Comments Comments: Side pain PENICILLINS 05/18/2010 2 - Rash Comments: high fevers PRAVASTATIN 01/18/2014 14 - Other: See Comments Comments: Muscle soreness PRILOSEC (OMEPRAZOLE MAGNESIUM) 07/14/2013 14 - Other: See Comments Comments: increased abdominal pressure, travels up to the chest area REGLAN (METOCLOPRAMIDE HCL) 10/03/2016 8 - GI Upset Comments: Also gives chest pain WELCHOL (COLESEVELAM HCL) 06/24/2013 14 - Other: See Comments Comments: Abdomen and chest pain XIFAXAN (RIFAXIMIN) 07/04/2015 14 - Other: See Comments Comments: Insomnia Date Reviewed: 07/19/2017 Reviewed by: Genesis Grewal - Fully Assessed Primary Visit Diagnosis:Chronic pain of right inguinal region [R10.31, G89.29] Prescriptions as of 07/19/2017 Sig: PREDNISONE 20 MG TABLET Take 1 tablet by mouth twice * MELATONIN 5 MG TABLET Take 50 mg by mouth daily at * CHOLESTYRAMINE-ASPARTAME 4 GR* 4grams po tid x 11 days for * LINACLOTIDE 145 MCG CAPSULE Take 1 capsule by mouth once * ONDANSETRON 4 MG DISINTEGRATI* Take 1 tablet by mouth every * FAMOTIDINE 20 MG TABLET Take 1 tablet by mouth twice * SERTRALINE 50 MG TABLET Take 50 mg by mouth once noy* OREGANO OIL ORAL Take by mouth. 2 capsules da* DIPHENHYDRAMINE 25 MG CAPSULE Take 25 mg by mouth every 6 h* LUBIPROSTONE 8 MCG CAPSULE Take 3 capsules by mouth twic* ASPIRIN 81 MG TABLET,DELAYED * Take 81 mg by mouth once noy* VENLAFAXINE 25 MG TABLET Take 25 mg by mouth once noy* FISH OIL ORAL Take 3,000 mg by mouth once d* POTASSIUM CHLORIDE ER 20 MEQ * Take 1 tablet by mouth once d* DOCUSATE SODIUM 100 MG CAPSULE Take 200 mg by mouth twice da* MAGNESIUM CITRATE ORAL SOLUTI* Take 296 mL by mouth one time* RADIOPAQUE PVC MARKERS-BARIUM* Take 2 capsules by mouth as d* PLECANATIDE 3 MG TABLET Take 3 mg by mouth once daily. VITAMIN B-12 ORAL Take by mouth. AMLODIPINE 10 MG TABLET Take 10 mg by mouth once noy* ACETAMINOPHEN 325 MG TABLET Take 650 mg by mouth every 6 * VITAMIN E (DL, ACETATE) 400 U* Take 400 Units by mouth once * ADULT PROBIOTIC ORAL Take by mouth once daily. MIRTAZAPINE 30 MG TABLET Take 1 tablet by mouth daily * TIZANIDINE 2 MG CAPSULE 1 tab po 3 times a day for tr* NITROGLYCERIN 0.4 MG SUBLINGU* Dissolve 1 tablet under the t* LORAZEPAM 1 MG TABLET Take 0.5 mg by mouth twice da* Problem List As Of Date 07/19/2017 Noted Resolved Hypertension [I10] INVALID FOR* More... Hyperlipidemia [E78.5] INVALID FOR* Diabetes mellitus, type 2 (HCC) [E11.9] INVALID FOR*12/24/2015 Tobacco use disorder [F17.200] INVALID FOR* Neck pain [M54.2] INVALID FOR* DDD (degenerative disc disease), cervical [M50.*INVALID FOR* Tendinitis of shoulder [M75.80] INVALID FOR* Cervical radiculopathy [M54.12] INVALID FOR* Rotator cuff tear [M75.100] INVALID FOR*09/04/2011 Muscular wasting and disuse atrophy, not elsewh*INVALID FOR* Cervicalgia [M54.2] INVALID FOR* Lumbago [M54.5] INVALID FOR* Lumbar spondylosis [M47.816] INVALID FOR* DDD (degenerative disc disease), lumbar [M51.36]INVALID FOR* Special screening for malignant neoplasms, colo*INVALID FOR*12/24/2015 Umbilical hernia without mention of obstruction*INVALID FOR* Myelitis [G04.91] INVALID FOR* Imaging abnormality [R93.8] INVALID FOR* Chronic abdominal pain [R10.9] INVALID FOR* Priority: B More... Chronic neck pain [M54.2, G89.29] INVALID FOR* More... SUMMARY [V999.95] INVALID FOR* Priority: A More... Periumbilical abdominal pain [R10.33] INVALID FOR* MS (multiple sclerosis) (HCC) [G35] INVALID FOR* Recurrent major depression in partial remission*INVALID FOR* Disposition: Return if symptoms worsen or fail to improve. Follow-up and Disposition History Recorded Encounter Status:Closed by GENESIS GREWAL MD on 07/19/17 ED NOTE Observed: 07/18/2017 Status: COMPLETED Source: [place] 3:43 PM CLINIC OTHER [place] REPOSITORY HNO ID: [id number] Author: Niya LemonRn) KIMBERLEE Vega Service: (none) Author Type: Registered Nurse Type: ED Notes Filed: 07/18/2017 3:43 PM Note Text: Pt discharged with verbal and written instructions. Verbalized understanding. Instructed pt to follow up with PCP. No acute distress. Instructed pt to follow up immediately if conditions worsens, verbalized understanding. CBC AND DIFFERENTIAL Collected: 07/18/2017 Status: F Source: [place] 3:00 PM CLINIC OTHER CAMPUS REPOSITORY TYPE CODE TESTS RESULT OUT OF REFERENCE UNITS RANGE LAB WBC 3.70-11.00 k/uL WBC 8.45 LAB RBC 4.20-6.00 m/uL RBC 4.61 LAB HGB 13.0-17.0 g/dL Hemoglobin 14.8 LAB HCT 39.0-51.0 % Hematocrit 43.3 LAB MCV 80.0-100.0 fL MCV 93.9 LAB MCH 26.0-34.0 pG MCH 32.1 LAB MCHC 30.5-36.0 g/dL MCHC 34.2 LAB RDWCV 11.5-15.0 % RDW-CV 12.3 LAB PLTCT 150-400 k/uL Platelet Count 233 LAB MPV 9.0-12.7 fL Low MPV 8.4 LAB ANEUT % Neut% 66.8 LAB AANEUT 1.45-7.50 k/uL Abs Neut 5.64 LAB ALYMP % Lymph% 22.5 LAB AALYMP 1.00-4.00 k/uL Abs Lymph 1.90 LAB AMONO % Mellette% 9.8 LAB AAMONO <0.87 k/uL Abs Mellette 0.83 LAB AEOS % Eosin% 0.7 LAB AAEOS <0.46 k/uL Abs Eosin 0.06 LAB ABASO % Baso% 0.2 LAB AABASO <0.11 k/uL Abs Baso <0.03 Performed By: #### CBCDIF, CMP, LIPA #### [facility] [address] [facility] [phone] COMP METABOLIC PANEL Collected: 07/18/2017 Status: F Source: [place] 3:00 PM CLINIC OTHER CAMPUS REPOSITORY TYPE CODE TESTS RESULT OUT OF REFERENCE UNITS RANGE LAB TP 6.3-8.0 g/dL Protein, Total 6.6 LAB ALB 3.9-4.9 g/dL Albumin 4.0 LAB CA 8.5-10.2 mg/dL Calcium, Total 8.9 LAB TBIL 0.2-1.3 mg/dL Bilirubin, Total 0.3 LAB ALKP 36-108 U/L Alkaline Phosphatase 52 LAB AST 14-40 U/L AST 17 LAB GLU 74-99 mg/dL Glucose High 117 Result Comment: The [place] Diabetes Association (ADA) provides guidance for cutoff values for fasting glucose and random glucose. The ADA defines fasting as no caloric intake for at least 8 hours. Fas ting plasma glucose results between 100 to 125 mg/dL indicate increased risk for diabetes (prediabetes). Fasting plasma glucose results greater than or equal to 126 mg/dL meet the criteria for diagnosis of diabetes. In the absence of unequivocal hyperglycemia, results should be confirmed by repeat testing. In a patient with classic symptoms of hyperglycemia or hyperglycemic crisis, random plasma glucose results greater than or equal to 200 mg/dL meet the criteria for diagnosis of diabetes. Reference: Standards of Medical Care in Diabetes 2016, [place] [employer] Association. Diabetes Care. 2016.39(Suppl 1). LAB BUN 9-24 mg/dL BUN Low 8 LAB CRET 0.73-1.22 mg/dL Creatinine Low 0.67 LAB NA 136-144 mmol/L Sodium 138 LAB K 3.7-5.1 mmol/L Potassium Low 3.5 LAB CL 97-105 mmol/L Chloride 100 LAB CO2 22-30 mmol/L CO2 26 LAB AGAP 9-18 mmol/L Anion Gap 12 LAB ALT 10-54 U/L ALT 14 LAB GFRAA eGFR- Amer. >60 LAB GFRNAA . eGFR-All Other Races >60 Result Comment: eGFR (Estimated GFR) Units of measure: mL/min/1.73 meters squared eGFR is derived from the reexpressed MDRD Study equation using the following parameters: serum creatinine, age, gender and race. The creatinine assay has been calibrated to be traceable to IDMS. An eGFR <60 mL/min/1.73m2 for >3 months is consistent with chronic kidney disease. Refer to KDOQI guidelines for clinical interpretation. In patients with unstable renal function, e.g. those with acute kidney injury, the eGFR may not accurately reflect actual GFR. Performed By: #### CBCDIF, CMP, LIPA #### [facility] [address] [place] [phone] LIPASE Collected: 07/18/2017 Status: F Source: [place] 3:00 PM [facility]INIC [facility] REPOSITORY TYPE CODE TESTS RESULT OUT OF REFERENCE UNITS RANGE LAB LIPA 16-61 U/L Lipase 29 Performed By: #### CBCDIF, CMP, LIPA #### [facility] [address] [place] [phone] ED NOTE Observed: 07/18/2017 Status: COMPLETED Source: [place] 2:50 PM [facility] REPOSITORY HNO ID: [id number] Author: Niya LemonRn) KIMBERLEE Vega Service: (none) Author Type: Registered Nurse Type: ED Notes Filed: 07/18/2017 3:37 PM Note Text: Pt presents to ED c/o chronic abd pain. Pt states he has had pain for over a year since he had a hernia repair. Pt states he was seen by a GI doctor and a colonoscopy was done recently and was told everything was normal and that he needs to get mesh removed. Pt states that surgeon who did his hernia repair will not mesh out states that is not he problem rather he had a pinched nerve in his back. Pt here today for abd pain. Denies N/V/D. Pt reports he has appointment tomorrow with surgeon. ED PROV NOTE Observed: 07/18/2017 Status: COMPLETED Source: [place] 2:38 PM CLINIC OTHER CAMPUS REPOSITORY O ID: [id number] Author: Angel Fontana (Pa) Service: (none) Author Type: Physician Circuit Tester Type: ED Provider Notes Filed: 07/18/2017 3:38 PM Note Text: ED Provider Note Patient Name: Oliver Cunningham SERVICE DATE: 07/18/17 History Patient presents with: Abdominal Pain HPI Comments: 57 year old male with a past medical history of hypertension, hyperlipidemia, smoker, chronic abdominal pain, with a care plan in place, for frequent hospital admissions, presents back to the emergency department today with an exacerbation of his chronic abdominal pain. He describes the pain as a dull aching pain that starts in his lower pelvic region and radiates up towards the abdomen. Patient states he's had this abdominal pain for many years. He states that nobody is ever figure out what is causing him to have this pain. He has seen a surgeon who put the MASH for his hernias, he has seen GI as well as family doctor who told him that this could be related to his chronic back pain and it could be nerve issue. Patient is here again for another evaluation. He denies any vomiting, denies any fevers chills, denies any testicular pain or swelling, urinary symptoms, blood in the urine or stool. Denies any recent travel or surgery. Denies any history of PE or DVT History provided by: Patient and medical records PAST MEDICAL HISTORY Diagnosis Date - Black spider bite 10/2007 - Cervical radiculopathy - CHI (closed head injury) 20 years ago. 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 PAST SURGICAL HISTORY Procedure Laterality Date - AMPUTATION FINGER/THUMB 05/29/10 Traumatic, Right middle, ring and distal - BACK SURGERY HX - CHOLECYSTECTOMY HX - COLONOSCOPY 11/20 - COLONOSCOPY 03/2016 - EGD W/O OR W/BRUSH/WASH 06/24/13 EGD - HERNIA REPAIR HX 2013 umbilical - HERNIA REPAIR HX Bilateral 05/2016 - ORTHOPEDICS SURGERY HX - PAST SURGICAL HISTORY OF 1993 lumbar diskectomy - REMOVAL GALLBLADDER 1998 laparoscopic - REMOVE TONSIL AND ADENOI UNDER AGE 13 remote - ROTATOR CUFF REPAIR 05/24/11 Right Shoulder - ROTATOR CUFF REPAIR 07/10/11 Left shoulder - TONSILLECTOMY HX FAMILY HISTORY Problem Relation Age of Onset - Emphysema Mother - Cancer Mother lung/glioblastoma(Brain) - Thyroid Mother - Heart Mother - melanie james [OTHER] Mother - GBM [OTHER] Mother - Coronary Artery Disease Father MA and CABG - MS [OTHER] Daughter - Lipids Paternal Grandfather - Lipids Brother - Psychiatry Sister - Kidney Disease Daughter - Psychiatry Daughter bipolar disorder Social History Social History Main Topics - Smoking status: Current Every Day Smoker Packs/day: 0.25 Years: 45.00 Types: Cigarettes Start date: 04/08/1977 - Smokeless tobacco: Never Used - Alcohol use No Comment: none - Drug use: No - Sexual activity: Not Currently Partners: Female ALLERGIES Allergen Reactions - Hydrocodone GI Upset Feels like bleeding Inside stomach - Lyrica [Pregabalin] Intolerance - Aubagio [Teriflunom* Other: See Comments Passed out - Bentyl [Dicyclomine* Other: See Comments - Celexa [Citalopram * Other: See Comments Terrible headaches. - Copaxone [Glatirame* Rash, Itching - Cymbalta [Duloxetin* Other: See Comments chest pain, abnormal sensation/feeling in chest - Erythromycin Other: See Comments turns everything to stone inside my bowels - Fenofibrate Intolerance chest pain and numbness - Hctz [Amiloride-Hyd* Other: See Comments Tripping, falling, no sense of balance - Lipitor [Atorvastat* Other: See Comments ruq PAIN - Miralax [Polyethyle* Swelling, GI Upset Swollen abdomen - go lightly - Mobic [Meloxicam] Itching - Morphine Other: See Comments Side pain - Penicillins Rash high fevers - Pravastatin Other: See Comments Muscle soreness - Prilosec [Omeprazol* Other: See Comments increased abdominal pressure, travels up to the chest area - Reglan [Metoclopram* GI Upset Also gives chest pain - Welchol [Colesevela* Other: See Comments Abdomen and chest pain - Xifaxan [Rifaximin] Other: See Comments Insomnia Review of Systems Constitutional: Negative for chills and fever. HENT: Negative for congestion and sore throat. Eyes: Negative for photophobia and visual disturbance. Respiratory: Negative for cough and shortness of breath. Cardiovascular: Negative for chest pain and palpitations. Gastrointestinal: Positive for abdominal pain. Negative for blood in stool. Genitourinary: Negative for dysuria and hematuria. Musculoskeletal: Negative for neck pain and neck stiffness. Skin: Negative for color change. Neurological: Negative for dizziness and headaches. Psychiatric/Behavioral: Negative for agitation and confusion. Physical Exam BP 124/80 Pulse 108 Temp (Src) 98.8 (Oral) Resp 19 Ht 5' 11 (1.80m) Wt 177 lb (80.3kg) SpO2 96% BMI 24.70 kg/(m2). Physical Exam Constitutional: He is oriented to person, place, and time. He appears well-developed. HENT: Head: Normocephalic. Eyes: Conjunctivae are normal. Neck: Normal range of motion. Cardiovascular: Normal rate and regular rhythm. Pulmonary/Chest: Effort normal and breath sounds normal. Abdominal: Soft. Bowel sounds are normal. He exhibits no distension and no mass. There is no tenderness. There is no rebound and no guarding. Abdomen soft. Bowel sounds active no 4 quadrant. There is no tenderness to palpation. There is no guarding or rebound tenderness on exam. There is no Valdivia's or McBurney's point. There is no mass or hernia. No CVA tenderness. Musculoskeletal: Normal range of motion. Neurological: He is alert and oriented to person, place, and time. Skin: Skin is warm and dry. Psychiatric: He has a normal mood and affect. His behavior is normal. Diagnostic Testing ED Labs Ordered and Reviewed CBC + DIFF - Abnormal; Notable for the following: Result Value Ref Range MPV 8.4 (*) 9.0 - 12.7 fL All other components within normal limits COMP METABOLIC PANEL - Abnormal; Notable for the following: Glucose 117 (*) 74 - 99 mg/dL BUN 8 (*) 9 - 24 mg/dL Creatinine 0.67 (*) 0.73 - 1.22 mg/dL Potassium 3.5 (*) 3.7 - 5.1 mmol/L All other components within normal limits LIPASE BLD Procedures Medical Decision Making / ED Course ED Course The medical record is reviewed.Triage note is reviewed and incorporated. The nursing note is reviewed and consistent with patient's history and physical exam findings. The vital signs were reviewed the the vital signs are : BP 124/80 Pulse (!) 108 Temp 37.1 ?C (98.8 ?F) (Oral) Resp 19 Ht 180.3 cm (5' 11) Wt 80.3 kg (177 lb) SpO2 96% BMI 24.69 kg/m2 MDM: This is a well-appearing male with a pmh of chronic abdominal pain who presents to the ED with a chief complaint of abdominal pain who is, afebrile , hemodynamically stable, in no acute distress patient whose symptoms are controlled in the ED with ivf, . Based on patient's pmh, chief complaint and physical exam findings, differential diagnoses include acute abdomen vs pancreatitis, vs electrolyte imbalance, vs exacerbation of chronic abdominal pain. Labs and imaging studies reveal cbc within normal limits cmp with bun of 8, creatinine of 0.67, k of 3.5, lipse within normal limits Based on patient's physical exam findings, clinical picture, lab results and imaging studies that were performed here today in the ED, at this time, the following differential diagnoses such as acute abdomen is less likely due to unremarkable exam and history ,no ttp , no guarding, no rigid abdomen. The following differential diagnosis such as pancreatitis is less likely due to unremarkable lipase. Patient is convinced that he has an infection in his body. He is told the surgeon to take his mash but his surgereon refuses. He has been seen multiple times for his chronic abdominal pain and is told that this could be nerve related. Patient does not have any fevers, his CBC is unremarkable. According to his multidisciplinary care plan, it states to avoid CTs unless clinically indicated. Since he is nontender to palpation. There is no guarding on exam. His CBC is unremarkable, we will not do a CT at this time. He will be discharged home and will follow up with his PCP, and his GI specialist. He was told to take home by mouth medication and follow with pain management as well. The patient has remained hemodynamically stable throughout the entire ED visit and is without objective evidence for acute process requiring urgent intervention or hospitalization. The patient and/or family had all the tests and diagnosis explained to them and were given both verbal and written discharge instructions. I answered the patient's question as well as family to the best of my ability. The patient is stable for discharge, and pt is instructed to follow up with pcp and educated to return to ed if sx worsen or any new symptoms. Pt agreeable with plan. At this time, based on the patient's history, physical exam findings, lab results and clinical picture , the most likely diagnosis is exacerbation of his chronic abdominal pain Pt educated on the most common causes of Exacerbation of his chronic abdominal pain Pt instructed to follow up with PCP in 1-2 days Discharge care instructions, medications, follow up instructions, and reasons to return to the ED immediately, such as worsening of symptoms or any new symptoms, were provided verbally and in writing to patient (patient guardian / medical detail representative), who verbalized understanding. This note was partially generated using [employer] voice recognition system, and there may be some incorrect words, spellings, and punctuation that were not noted in checking the note before saving Encounter Diagnosis ICD-10-CM 1. Chronic abdominal pain R10.9 G89.29 (R10.9, G89.29) Chronic abdominal pain (primary encounter diagnosis) Comment: acute on chronci Plan: dc see pcp see surgeon tomorrow as scheduled, home pain meds return to ed if sx worsen Plan The Patient was DISCHARGED: Counseled patient and family regarding lab results AND suspected diagnosis AND need for follow-up. Discharged home with verbal and written instructions. They were instructed to return as needed for persistent or worsening symptoms or any new concerns. Condition at time of disposition: stable SIGNATURE: VINNY Fair (Pa) 07/18/17 1538 ED NOTE Observed: 07/18/2017 Status: COMPLETED Source: [place] 2:25 PM CLINIC OTHER CAMPUS REPOSITORY O ID: [id number] Author: Shyann (Rn) KIMBERLEE Palma Service: (none) Author Type: Registered Nurse Type: ED Notes Filed: 07/18/2017 2:26 PM Note Text: Patient complaint of abdominal pain CR ABDOMEN SERIES W/ Observed: 07/14/2017 Status: F Source: [facility] CHEST 1 VIEW 5:17 PM SYSTEM REPOSITORY Patient Name: OLIVER CUNNINGHAM Diagnostic Radiology Exam Date/Time 07/14/2017 16:50:00 EDT Exam CR Abdomen Series w/ Chest 1 View Ordering Physician ERNESTO JONES DANIEL M Accession Number [id number] CPT4 Codes 04677 () Reason For Exam cough Report ACUTE ABDOMINAL SERIES CLINICAL INDICATION: cough TECHNIQUE: AP and upright or decubitus views of the abdomen, frontal view of the chest. COMPARISON: 07/05/2017 FINDINGS: Lungs are clear. Heart size normal. No pleural effusion or pneumothorax. No free air. Status post cholecystectomy. Nonspecific bowel gas pattern. No obstruction apparent. No suspicious calcifications. IMPRESSION: 1. No acute finding. Report Dictated on Final Dictating Physician: MD LÓPEZ JOHN R Signed Date and Time: 07/14/2017 5:19 pm Signed by: MD LÓPEZ JOHN R Transcribed Date and Time: 07/14/2017 5:20 PROGRESS Observed: 07/10/2017 Status: COMPLETED Source: [place] 10:32 AM [facility] REPOSITORY O ID: [id number] Author: Jes Alex Service: (none) Author Type: Physician Type: Progress Notes Filed: 07/10/2017 1:15 PM Note Text: [facility] NOTE DATE: July 10, 2017 Chief Complaint: chronic abdominal / inguinal pain. SUBJECTIVE: Mr. Cunningham [facility] for a follow up appointment regarding chronic abdominal pain. He states that since the last visit symptoms have been worsening. The pain is located in the abdominal abdominal region and radiates down the posterior leg, down the posterolateral leg, down the anterior leg, down the posterior arm and down the anterior arm. The pain is described as aching, burning, crushing, excruciating, pressure, radiating, sharp, stabbing and tenderness and is rated as 9 on a scale of 0-10. The patient Denies None. Symptoms interfere with physical activity, work, sexual relations, walking, sleeping, sitting, bathing, driving, cooking, household cleaning, reaching for shelves, lifting and social activities. The pain is exacerbated by sitting. The pain is mitigated by lying down. . He is not currently receiving medications through the [facility]. He is not having difficulty with his [facility] medications. The medications are ineffective. The patient states the last dose of . OTC Tylenol was taken at July 09, 2017. REVIEW OF SYSTEMS: Constitutional: (-) Fever (+) Night Sweats (-) Weight Gain (-) Weight Loss (+) Fatigue Cardiovascular: (+) Chest Pain (-) Palpitations (-) Lightheadedness (-) Swelling of Ankles (-) Hx Heart Surgery Respiratory: (+) Shortness of Breath (-) Cough (-) Wheezing (-) Snoring Gastrointestinal: (-) Incontinence (+) Abdominal Pain (-) Diarrhea (+) Constipation (+) Nausea/Vomiting (-) Heart Burn Endocrine: (-) Thyroid Disorder (-) Diabetes Hematologic: (-) Prolonged Bleeding (-) Easy Bruising Genitourinary: (-) Incontinence (-) Frequency (-) Urinary Urgency Skin: (-) Rashes (-) Itching (-) Other Lesions Neurologic: (+) Headache (-) Double Vision (-) Confusion (-) Paralysis Psychiatric: (+) Depression (+) Anxiety (-) Delusions (-) Hallucinations (-) Personal History of Alcohol or Substance Abuse (-) Family History of Alcohol or Substance Abuse PAST MEDICAL HISTORY Diagnosis Date - Black spider bite 10/2007 - Cervical radiculopathy - CHI (closed head injury) 20 years ago. 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 PAST SURGICAL HISTORY Procedure Laterality Date - AMPUTATION FINGER/THUMB 05/29/10 Traumatic, Right middle, ring and distal - BACK SURGERY HX - CHOLECYSTECTOMY HX - COLONOSCOPY 11/20 - COLONOSCOPY 03/2016 - EGD W/O OR W/BRUSH/WASH 06/24/13 EGD - HERNIA REPAIR HX 2013 umbilical - HERNIA REPAIR HX Bilateral 05/2016 - ORTHOPEDICS SURGERY HX - PAST SURGICAL HISTORY OF 1993 lumbar diskectomy - REMOVAL GALLBLADDER 1998 laparoscopic - REMOVE TONSIL AND ADENOI UNDER AGE 13 remote - ROTATOR CUFF REPAIR 05/24/11 Right Shoulder - ROTATOR CUFF REPAIR 07/10/11 Left shoulder - TONSILLECTOMY HX ALLERGIES Allergen Reactions - Hydrocodone GI Upset Feels like bleeding Inside stomach - Lyrica [Pregabalin] Intolerance - Aubagio [Teriflunom* Other: See Comments Passed out - Bentyl [Dicyclomine* Other: See Comments - Celexa [Citalopram * Other: See Comments Terrible headaches. - Copaxone [Glatirame* Rash, Itching - Cymbalta [Duloxetin* Other: See Comments chest pain, abnormal sensation/feeling in chest - Erythromycin Other: See Comments turns everything to stone inside my bowels - Fenofibrate Intolerance chest pain and numbness - Hctz [Amiloride-Hyd* Other: See Comments Tripping, falling, no sense of balance - Lipitor [Atorvastat* Other: See Comments ruq PAIN - Miralax [Polyethyle* Swelling, GI Upset Swollen abdomen - go lightly - Mobic [Meloxicam] Itching - Morphine Other: See Comments Side pain - Penicillins Rash high fevers - Pravastatin Other: See Comments Muscle soreness - Prilosec [Omeprazol* Other: See Comments increased abdominal pressure, travels up to the chest area - Reglan [Metoclopram* GI Upset Also gives chest pain - Welchol [Colesevela* Other: See Comments Abdomen and chest pain - Xifaxan [Rifaximin] Other: See Comments Insomnia Current Outpatient Prescriptions: predniSONE (DELTASONE) 20 mg tablet Take 1 tablet by mouth twice daily. Melatonin 5 mg tab Take 50 mg by mouth daily at bedtime. Cholestyramine-Aspartame (CHOLESTYRAMINE LIGHT) 4 gram powder 4grams po tid x 11 days for rapid elimination of MS medication, Aubagio linaclotide (LINZESS) 145 mcg cap Take 1 capsule by mouth once daily. ondansetron orally disintegrating (ZOFRAN ODT) 4 mg disintegrating tablet Take 1 tablet by mouth every 4 hours as needed for Nausea/Vomiting. famotidine (PEPCID) 20 mg tablet Take 1 tablet by mouth twice daily. sertraline (ZOLOFT) 50 mg tablet Take 50 mg by mouth once daily. OREGANO OIL ORAL Take by mouth. 2 capsules daily, 400mg ea diphenhydrAMINE (BENADRYL) 25 mg capsule Take 25 mg by mouth every 6 hours as needed. taking 12 capsules daily lubiprostone (AMITIZA) 8 mcg capsule Take 3 capsules by mouth twice daily with meals. aspirin, enteric coated (ASPIRIN, ENTERIC COATED) 81 mg EC tablet Take 81 mg by mouth once daily. DOCOSAHEXANOIC ACID/EPA (FISH OIL ORAL) Take 3,000 mg by mouth once daily. potassium chloride ER (K-DUR, KLOR-CON) 20 mEq tablet Take 1 tablet by mouth once daily. docusate sodium (DULCOLAX STOOL SOFTENER, DSS,) 100 mg capsule Take 200 mg by mouth twice daily. magnesium citrate solution Take 296 mL by mouth one time only. CYANOCOBALAMIN, VITAMIN B-12, (VITAMIN B-12 ORAL) Take by mouth. amLODIPine (NORVASC) 10 mg tablet Take 10 mg by mouth once daily. acetaminophen (TYLENOL) 325 mg tablet Take 650 mg by mouth every 6 hours as needed. VITAMIN E, DL,TOCOPHERYL ACET, (VITAMIN E, DL, ACETATE,) 400 unit capsule Take 400 Units by mouth once daily. LACTOBACILLUS COMBINATION NO.8 (ADULT PROBIOTIC ORAL) Take by mouth once daily. nitroglycerin sublingual (NITROQUICK) 0.4 mg SL tablet Dissolve 1 tablet under the tongue as needed. FOR CHEST PAIN. IF NO RELIEF CALL 911 LORAZEPAM 1 mg tablet Take 0.5 mg by mouth twice daily. venlafaxine (EFFEXOR) 25 mg tablet Take 25 mg by mouth once daily. Radiopaque PVC Markers-Barium (SITZMARKS) 24 Markers cap Take 2 capsules by mouth as directed. plecanatide 3 mg tab Take 3 mg by mouth once daily. mirtazapine (REMERON) 30 mg tablet Take 1 tablet by mouth daily at bedtime. tiZANidine HCl (ZANAFLEX) 2 mg capsule 1 tab po 3 times a day for truncal spasm No current facility-administered medications for this visit. I have reviewed the nurses notes and I am aware of the family/social history. Since the last evaluation the medical history has not changed. PHYSICAL EXAMINATION: Vitals: Pulse 102 Ht 5' 11 (1.80m) Wt 176 lb (79.8kg) SpO2 96% BMI 24.56 kg/(m2). Performed in conjunction with observation. The patient is alert and oriented x3. The patient is in no acute distress. Station and Gait: Normal stance, normal gait. Lungs: normal respiratory rate and rhythm. Cardiovascular: regular rate. Neck: Supple. The range of motion is intact. Back: Range of motion of the trunk was generally intact. Abdomen: tender to palpation over the lower quadrants over the incision. Spine: no focal tenderness. Extremities: no reported edema or erythema. Motor: Exhibits full strength in all four extremities. ASSESSMENT: Encounter Diagnosis ICD-10-CM 1. Inguinal pain, unspecified laterality R10.30 CONSULT TO GENERAL SURGERY 2. Nerve entrapment syndrome G58.9 CONSULT TO GENERAL SURGERY [facility] website checked and validated. All prescriptions have been APPROPRIATELY filled. No suspicious activity was identified.- 07/10/2017 by Rachael Guillen Ma Narcotic Agreement reviewed and signed?: N/A on July 10, 2017 Urine Panel: Lab Results Component Value Date Cannabinoid Quant, Urine <16 04/14/2013 Benzoylecognine Quant, Urine <24 04/14/2013 6-Acetylmorphine Quant, Urine <04/14/2013 Amphetamine Quant, Urine <04/14/2013 Methamphetamine Quant, Urine <8 04/14/2013 Buprenorphine Quant, Urine <04/14/2013 Norbuprenorphine Quant, Urine <04/14/2013 Methadone Quant, Urine <16 04/14/2013 EDDP Quant, Urine <04/14/2013 Tramadol Quant, Urine <04/14/2013 Desmethyltramadol Quant, Urine <04/14/2013 Fentanyl Quant, Urine <04/14/2013 Norfentanyl Quant, Urine <04/14/2013 Codeine Quant, Urine <11 04/14/2013 Morphine Quant, Urine <04/14/2013 Dihydrocodeine Quant, Urine <04/14/2013 Hydrocodone Quant, Urine <8 04/14/2013 Oxycodone Quant, Urine 1230 (H) 04/14/2013 Hydromorphone Quant, Urine <5 04/14/2013 Oxymorphone Quant, Urine 910 (H) 04/14/2013 Creatinine,Ur Pain [place] >50 04/14/2013 Urine pH, Pain [place] 4-10 04/14/2013 Specific [place],Ur Pain [place] >1.020 04/14/2013 Oxidants,Ur Negative 04/14/2013 Specimen Quality, Ur Pain [place] Specimen quality results within acceptable limits. 04/14/2013 The pain panel was N/A PLAN: Prior available imaging studies were reviewed. Findings were discussed. Injection history was reviewed. Medication use and compliance were reviewed. 1. Recommend general surgery to evaluate. 2. No medications selected for refill. 3. Interventional procedure options discussed. None. 4. Encouraged regular home exercise program. 5) F/U in 3 months The treatment plan was discussed with the patient during the office visit and they verbalized an understanding of it. Jes Alex MD cc: Dr. Kate Benavidez, cc: SELF Phone: N/A Fax: Results of consultation to be transmitted via electronic medical record for those providers who practice within [facility] or with access to [employer] via [employer], or via letter. CNOV Observed: 07/10/2017 Status: COMPLETED Source: [place] 10:30 AM [facility] REPOSITORY Office Visit (PNMDNA) OLIVER CUNNINGHAM ([id number]) 1960 M Date Time Provider Department 07/10/17 10:30 AM JES ALEX During your visit today, we recorded the following information about you: Pulse Weight Height 102/minute 79.8 kg 1.803 m Jes Alex MD 07/10/2017 1:15 PM Signed [facility] NOTE DATE: July 10, 2017 Chief Complaint: chronic abdominal / inguinal pain. SUBJECTIVE: Mr. Cunningham [facility] office for a follow up appointment regarding chronic abdominal pain. He states that since the last visit symptoms have been worsening. The pain is located in the abdominal abdominal region and radiates down the posterior leg, down the posterolateral leg, down the anterior leg, down the posterior arm and down the anterior arm. The pain is described as aching, burning, crushing, excruciating, pressure, radiating, sharp, stabbing and tenderness and is rated as 9 on a scale of 0-10. The patient Denies None. Symptoms interfere with physical activity, work, sexual relations, walking, sleeping, sitting, bathing, driving, cooking, household cleaning, reaching for shelves, lifting and social activities. The pain is exacerbated by sitting. The pain is mitigated by lying down. . He is not currently receiving medications through the [facility]. He is not having difficulty with his [facility] medications. The medications are ineffective. The patient states the last dose of . OTC Tylenol was taken at July 09, 2017. REVIEW OF SYSTEMS: Constitutional: (-) Fever (+) Night Sweats (-) Weight Gain (-) Weight Loss (+) Fatigue Cardiovascular: (+) Chest Pain (-) Palpitations (-) Lightheadedness (-) Swelling of Ankles (-) Hx Heart Surgery Respiratory: (+) Shortness of Breath (-) Cough (-) Wheezing (-) Snoring Gastrointestinal: (-) Incontinence (+) Abdominal Pain (-) Diarrhea (+) Constipation (+) Nausea/Vomiting (-) Heart Burn Endocrine: (-) Thyroid Disorder (-) Diabetes Hematologic: (-) Prolonged Bleeding (-) Easy Bruising Genitourinary: (-) Incontinence (-) Frequency (-) Urinary Urgency Skin: (-) Rashes (-) Itching (-) Other Lesions Neurologic: (+) Headache (-) Double Vision (-) Confusion (-) Paralysis Psychiatric: (+) Depression (+) Anxiety (-) Delusions (-) Hallucinations (-) Personal History of Alcohol or Substance Abuse (-) Family History of Alcohol or Substance Abuse PAST MEDICAL HISTORY Diagnosis Date - Black spider bite 10/2007 - Cervical radiculopathy - CHI (closed head injury) 20 years ago. 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 PAST SURGICAL HISTORY Procedure Laterality Date - AMPUTATION FINGER/THUMB 05/29/10 Traumatic, Right middle, ring and distal - BACK SURGERY HX - CHOLECYSTECTOMY HX - COLONOSCOPY 11/20 - COLONOSCOPY 03/2016 - EGD W/O OR W/BRUSH/WASH 06/24/13 EGD - HERNIA REPAIR HX 2013 umbilical - HERNIA REPAIR HX Bilateral 05/2016 - ORTHOPEDICS SURGERY HX - PAST SURGICAL HISTORY OF 1993 lumbar diskectomy - REMOVAL GALLBLADDER 1998 laparoscopic - REMOVE TONSIL AND ADENOI UNDER AGE 13 remote - ROTATOR CUFF REPAIR 05/24/11 Right Shoulder - ROTATOR CUFF REPAIR 07/10/11 Left shoulder - TONSILLECTOMY HX ALLERGIES Allergen Reactions - Hydrocodone GI Upset Feels like bleeding Inside stomach - Lyrica [Pregabalin] Intolerance - Aubagio [Teriflunom* Other: See Comments Passed out - Bentyl [Dicyclomine* Other: See Comments - Celexa [Citalopram * Other: See Comments Terrible headaches. - Copaxone [Glatirame* Rash, Itching - Cymbalta [Duloxetin* Other: See Comments chest pain, abnormal sensation/feeling in chest - Erythromycin Other: See Comments ANDquot;turns everything to stone inside my bowelsANDquot; - Fenofibrate Intolerance chest pain and numbness - Hctz [Amiloride-Hyd* Other: See Comments Tripping, falling, no sense of balance - Lipitor [Atorvastat* Other: See Comments ruq PAIN - Miralax [Polyethyle* Swelling, GI Upset Swollen abdomen - go lightly - Mobic [Meloxicam] Itching - Morphine Other: See Comments Side pain - Penicillins Rash high fevers - Pravastatin Other: See Comments Muscle soreness - Prilosec [Omeprazol* Other: See Comments increased abdominal pressure, travels up to the chest area - Reglan [Metoclopram* GI Upset Also gives chest pain - Welchol [Colesevela* Other: See Comments Abdomen and chest pain - Xifaxan [Rifaximin] Other: See Comments Insomnia Current Outpatient Prescriptions: predniSONE (DELTASONE) 20 mg tablet Take 1 tablet by mouth twice daily. Melatonin 5 mg tab Take 50 mg by mouth daily at bedtime. Cholestyramine-Aspartame (CHOLESTYRAMINE LIGHT) 4 gram powder 4grams po tid x 11 days for rapid elimination of MS medication, Aubagio linaclotide (LINZESS) 145 mcg cap Take 1 capsule by mouth once daily. ondansetron orally disintegrating (ZOFRAN ODT) 4 mg disintegrating tablet Take 1 tablet by mouth every 4 hours as needed for Nausea/Vomiting. famotidine (PEPCID) 20 mg tablet Take 1 tablet by mouth twice daily. sertraline (ZOLOFT) 50 mg tablet Take 50 mg by mouth once daily. OREGANO OIL ORAL Take by mouth. 2 capsules daily, 400mg ea diphenhydrAMINE (BENADRYL) 25 mg capsule Take 25 mg by mouth every 6 hours as needed. taking 12 capsules daily lubiprostone (AMITIZA) 8 mcg capsule Take 3 capsules by mouth twice daily with meals. aspirin, enteric coated (ASPIRIN, ENTERIC COATED) 81 mg EC tablet Take 81 mg by mouth once daily. DOCOSAHEXANOIC ACID/EPA (FISH OIL ORAL) Take 3,000 mg by mouth once daily. potassium chloride ER (K-DUR, KLOR-CON) 20 mEq tablet Take 1 tablet by mouth once daily. docusate sodium (DULCOLAX STOOL SOFTENER, DSS,) 100 mg capsule Take 200 mg by mouth twice daily. magnesium citrate solution Take 296 mL by mouth one time only. CYANOCOBALAMIN, VITAMIN B-12, (VITAMIN B-12 ORAL) Take by mouth. amLODIPine (NORVASC) 10 mg tablet Take 10 mg by mouth once daily. acetaminophen (TYLENOL) 325 mg tablet Take 650 mg by mouth every 6 hours as needed. VITAMIN E, DL,TOCOPHERYL ACET, (VITAMIN E, DL, ACETATE,) 400 unit capsule Take 400 Units by mouth once daily. LACTOBACILLUS COMBINATION NO.8 (ADULT PROBIOTIC ORAL) Take by mouth once daily. nitroglycerin sublingual (NITROQUICK) 0.4 mg SL tablet Dissolve 1 tablet under the tongue as needed. FOR CHEST PAIN. IF NO RELIEF CALL 911 LORAZEPAM 1 mg tablet Take 0.5 mg by mouth twice daily. venlafaxine (EFFEXOR) 25 mg tablet Take 25 mg by mouth once daily. Radiopaque PVC Markers-Barium (SITZMARKS) 24 Markers cap Take 2 capsules by mouth as directed. plecanatide 3 mg tab Take 3 mg by mouth once daily. mirtazapine (REMERON) 30 mg tablet Take 1 tablet by mouth daily at bedtime. tiZANidine HCl (ZANAFLEX) 2 mg capsule 1 tab po 3 times a day for truncal spasm No current facility-administered medications for this visit. I have reviewed the nurses notes and I am aware of the family/social history. Since the last evaluation the medical history has not changed. PHYSICAL EXAMINATION: Vitals: Pulse 102 Ht 5' 11ANDquot; (1.80m) Wt 176 lb (79.8kg) SpO2 96% BMI 24.56 kg/(m2). Performed in conjunction with observation. The patient is alert and oriented x3. The patient is in no acute distress. Station and Gait: Normal stance, normal gait. Lungs: normal respiratory rate and rhythm. Cardiovascular: regular rate. Neck: Supple. The range of motion is intact. Back: Range of motion of the trunk was generally intact. Abdomen: tender to palpation over the lower quadrants over the incision. Spine: no focal tenderness. Extremities: no reported edema or erythema. Motor: Exhibits full strength in all four extremities. ASSESSMENT: Encounter Diagnosis ICD-10-CM 1. Inguinal pain, unspecified laterality R10.30 CONSULT TO GENERAL SURGERY 2. Nerve entrapment syndrome G58.9 CONSULT TO GENERAL SURGERY [facility] website checked and validated. All prescriptions have been APPROPRIATELY filled. No suspicious activity was identified.- 07/10/2017 by Rachael Guillen Ma Narcotic Agreement reviewed and signed?: N/A on July 10, 2017 Urine Panel: Lab Results Component Value Date Cannabinoid Quant, Urine ANDlt;04/14/2013 Benzoylecognine Quant, Urine ANDlt;04/14/2013 6-Acetylmorphine Quant, Urine ANDlt;04/14/2013 Amphetamine Quant, Urine ANDlt;04/14/2013 Methamphetamine Quant, Urine ANDlt;04/14/2013 Buprenorphine Quant, Urine ANDlt;04/14/2013 Norbuprenorphine Quant, Urine ANDlt;04/14/2013 Methadone Quant, Urine ANDlt;04/14/2013 EDDP Quant, Urine ANDlt;04/14/2013 Tramadol Quant, Urine ANDlt;04/14/2013 Desmethyltramadol Quant, Urine ANDlt;04/14/2013 Fentanyl Quant, Urine ANDlt;04/14/2013 Norfentanyl Quant, Urine ANDlt;04/14/2013 Codeine Quant, Urine ANDlt;04/14/2013 Morphine Quant, Urine ANDlt;04/14/2013 Dihydrocodeine Quant, Urine ANDlt;04/14/2013 Hydrocodone Quant, Urine ANDlt;04/14/2013 Oxycodone Quant, Urine 1230 (H) 04/14/2013 Hydromorphone Quant, Urine ANDlt;04/14/2013 Oxymorphone Quant, Urine 910 (H) 04/14/2013 Creatinine,Ur Pain [place] ANDgt;50 04/14/2013 Urine pH, Pain [place] 4-10 04/14/2013 Specific [place],Ur Pain [place] ANDgt;1.020 04/14/2013 Oxidants,Ur Negative 04/14/2013 Specimen Quality, Ur Pain [place] Specimen quality results within acceptable limits. 04/14/2013 The pain panel was N/A PLAN: Prior available imaging studies were reviewed. Findings were discussed. Injection history was reviewed. Medication use and compliance were reviewed. 1. Recommend general surgery to evaluate. 2. No medications selected for refill. 3. Interventional procedure options discussed. None. 4. Encouraged regular home exercise program. 5) F/U in 3 months The treatment plan was discussed with the patient during the office visit and they verbalized an understanding of it. Jes Alex MD cc: Dr. Kate Benavidez, DO cc: SELF Phone: N/A Fax: Results of consultation to be transmitted via electronic medical record for those providers who practice within [facility] or with access to [employer] via MD Connect, or via letter. Referring Provider: SELF [[id number]] Allergies As of Date: 07/10/2017 Noted Allergy Reaction HYDROCODONE 12/17/2013 8 - GI Upset Comments: Feels like bleeding Inside stomach LYRICA (PREGABALIN) 07/04/2015 5 - Intolerance AUBAGIO (TERIFLUNOMIDE) 04/25/2017 14 - Other: See Comments Comments: Passed out BENTYL (DICYCLOMINE HCL) 01/05/2016 14 - Other: See Comments CELEXA (CITALOPRAM HYDROBROMIDE) 04/28/2012 14 - Other: See Comments Comments: Terrible headaches. COPAXONE (GLATIRAMER ACETATE) 08/24/2013 2 - Rash 9 - Itching CYMBALTA (DULOXETINE) 08/04/2012 14 - Other: See Comments Comments: chest pain, abnormal sensation/feeling in chest ERYTHROMYCIN 02/14/2017 14 - Other: See Comments Comments: turns everything to stone inside my bowels FENOFIBRATE 08/25/2013 5 - Intolerance Comments: chest pain and numbness HCTZ (AMILORIDE-HYDROCHLOROTHIAZI*12/24/2015 14 - Other: See Comments Comments: Tripping, falling, no sense of balance LIPITOR (ATORVASTATIN CALCIUM) 12/17/2013 14 - Other: See Comments Comments: ruq PAIN MIRALAX (POLYETHYLENE GLYCOL 3350)07/10/2016 7 - Swelling 8 - GI Upset Comments: Swollen abdomen - go lightly MOBIC (MELOXICAM) 07/26/2010 9 - Itching MORPHINE 12/01/2013 14 - Other: See Comments Comments: Side pain PENICILLINS 05/18/2010 2 - Rash Comments: high fevers PRAVASTATIN 01/18/2014 14 - Other: See Comments Comments: Muscle soreness PRILOSEC (OMEPRAZOLE MAGNESIUM) 07/14/2013 14 - Other: See Comments Comments: increased abdominal pressure, travels up to the chest area REGLAN (METOCLOPRAMIDE HCL) 10/03/2016 8 - GI Upset Comments: Also gives chest pain WELCHOL (COLESEVELAM HCL) 06/24/2013 14 - Other: See Comments Comments: Abdomen and chest pain XIFAXAN (RIFAXIMIN) 07/04/2015 14 - Other: See Comments Comments: Insomnia Date Reviewed: 07/10/2017 Reviewed by: Rachael Guillen Ma - Fully Assessed Reason for Visit: Established Patient [175] Cmt: Pain Reason For Visit History Recorded Primary Visit Diagnosis:Inguinal pain, unspecified laterality [R10.30] Other Visit Diagnosis:Nerve entrapment syndrome [G58.9] Order(s):CONSULT TO GENERAL SURGERY [9011] Order #: [id number]: 1 Prescriptions as of 07/10/2017 Sig: PREDNISONE 20 MG TABLET Take 1 tablet by mouth twice * MELATONIN 5 MG TABLET Take 50 mg by mouth daily at * CHOLESTYRAMINE-ASPARTAME 4 GR* 4grams po tid x 11 days for * LINACLOTIDE 145 MCG CAPSULE Take 1 capsule by mouth once * ONDANSETRON 4 MG DISINTEGRATI* Take 1 tablet by mouth every * FAMOTIDINE 20 MG TABLET Take 1 tablet by mouth twice * SERTRALINE 50 MG TABLET Take 50 mg by mouth once noy* OREGANO OIL ORAL Take by mouth. 2 capsules da* DIPHENHYDRAMINE 25 MG CAPSULE Take 25 mg by mouth every 6 h* LUBIPROSTONE 8 MCG CAPSULE Take 3 capsules by mouth twic* ASPIRIN 81 MG TABLET,DELAYED * Take 81 mg by mouth once noy* FISH OIL ORAL Take 3,000 mg by mouth once d* POTASSIUM CHLORIDE ER 20 MEQ * Take 1 tablet by mouth once d* DOCUSATE SODIUM 100 MG CAPSULE Take 200 mg by mouth twice da* MAGNESIUM CITRATE ORAL SOLUTI* Take 296 mL by mouth one time* VITAMIN B-12 ORAL Take by mouth. AMLODIPINE 10 MG TABLET Take 10 mg by mouth once noy* ACETAMINOPHEN 325 MG TABLET Take 650 mg by mouth every 6 * VITAMIN E (DL, ACETATE) 400 U* Take 400 Units by mouth once * ADULT PROBIOTIC ORAL Take by mouth once daily. NITROGLYCERIN 0.4 MG SUBLINGU* Dissolve 1 tablet under the t* LORAZEPAM 1 MG TABLET Take 0.5 mg by mouth twice da* VENLAFAXINE 25 MG TABLET Take 25 mg by mouth once noy* RADIOPAQUE PVC MARKERS-BARIUM* Take 2 capsules by mouth as d* PLECANATIDE 3 MG TABLET Take 3 mg by mouth once daily. MIRTAZAPINE 30 MG TABLET Take 1 tablet by mouth daily * TIZANIDINE 2 MG CAPSULE 1 tab po 3 times a day for tr* Problem List As Of Date 07/10/2017 Noted Resolved Hypertension [I10] INVALID FOR* More... Hyperlipidemia [E78.5] INVALID FOR* Diabetes mellitus, type 2 (HCC) [E11.9] INVALID FOR*12/24/2015 Tobacco use disorder [F17.200] INVALID FOR* Neck pain [M54.2] INVALID FOR* DDD (degenerative disc disease), cervical [M50.*INVALID FOR* Tendinitis of shoulder [M75.80] INVALID FOR* Cervical radiculopathy [M54.12] INVALID FOR* Rotator cuff tear [M75.100] INVALID FOR*09/04/2011 Muscular wasting and disuse atrophy, not elsewh*INVALID FOR* Cervicalgia [M54.2] INVALID FOR* Lumbago [M54.5] INVALID FOR* Lumbar spondylosis [M47.816] INVALID FOR* DDD (degenerative disc disease), lumbar [M51.36]INVALID FOR* Special screening for malignant neoplasms, colo*INVALID FOR*12/24/2015 Umbilical hernia without mention of obstruction*INVALID FOR* Myelitis [G04.91] INVALID FOR* Imaging abnormality [R93.8] INVALID FOR* Chronic abdominal pain [R10.9] INVALID FOR* Priority: B More... Chronic neck pain [M54.2, G89.29] INVALID FOR* More... SUMMARY [V999.95] INVALID FOR* Priority: A More... Periumbilical abdominal pain [R10.33] INVALID FOR* MS (multiple sclerosis) (HCC) [G35] INVALID FOR* Recurrent major depression in partial remission*INVALID FOR* Encounter Status:Closed by JES ALEX MD on 07/10/17 CR ABDOMEN SERIES W/ Observed: 07/05/2017 Status: F Source: [facility] CHEST 1 VIEW 10:13 AM SYSTEM REPOSITORY Patient Name: OLIVER CUNNINGHAM Diagnostic Radiology Exam Date/Time 07/05/2017 10:08:52 EDT Exam CR Abdomen Series w/ Chest 1 View Ordering Physician MD BEANVIDEZ GREGORY M Accession Number [id number] CPT4 Codes 67944 () Reason For Exam Abdominal pain Report CLINICAL INFORMATION: Abdominal pain Erect and supine views of the abdomen were obtained with frontal view of the chest. Comparison: Abdomen KUB June 16, 2017 The bowel gas pattern is nonspecific and nonobstructive in appearance. No free intraperitoneal air or significantly dilated loops of bowel are noted. No abnormal calcifications are noted. Surgical clips consistent with prior cholecystectomy. No acute pulmonary disease is noted. Cardiovascular silhouette is within normal limits. IMPRESSION: Nonobstructive bowel gas pattern. Report Dictated on Final Dictating Physician: MICKI RICHARDS Signed Date and Time: 07/05/2017 10:13 am Signed by: MICKI RICHARDS Transcribed Date and Time: 07/05/2017 10:15 TROP Collected: 07/03/2017 Status: F Source: [facility] 4:08 PM [facility] REPOSITORY TYPE CODE TESTS RESULT OUT OF REFERENCE UNITS RANGE LAB TROP(LOINC) 0.00-0.30 ng/mL Troponin <0.30 Result Comment: Below measuring range >=0.30 Consistent with cardiac damage, increased clinical risk and possibility of myocardial infarction. Serial measurements, clinical history, appropriate symptoms and/or ECG changes may help assess possibility of MA. *Other non-acute coronary syndrome conditions such as CHF, myocarditis, pulmonary emboli, sepsis and cardiac surgery could result in myocardial damage and increased troponin levels. Performed By: #### TROP #### [place] [address] [place], [place] [address] EKG Observed: 07/02/2017 Status: F Source: [facility] 12:39 PM [facility] REPOSITORY Acquired on 07/02/2017 1239 Vent. Rate : 067 BPM Atrial Rate : 067 BPM P-R Int : 122 ms QRS Dur : 088 ms QT Int : 396 ms P-R-T Axes : 083 093 088 degrees QTc Int : 418 ms Normal sinus rhythm with sinus arrhythmia Rightward axis Borderline ECG When compared with ECG of 14-JUN-2017 14:55, Significant changes have occurred Confirmed by DENEEN DAVID MD ([id number]) on 07/04/2017 10:23:58 AM Referred By: Confirmed By:DENEEN DAVID MD [id number] 2018 [facility] PT NAME: OLIVER GREEN MR#: [id number] [address] [place] [address] ACCT: [id number] : 62 EKG REPORT GLUCOSE METER Collected: 07/02/2017 Status: F Source: [facility] 7:56 AM [facility] REPOSITORY Order Comment: [facility]SERVATION TYPE CODE TESTS RESULT OUT OF RANGE REFERENCE UNITS LAB L500.57453 70-110 mg/dL Normal GLUCOSE METER 93 Performed By: #### [id number] #### Test performed at: [place] [address] OPERATIVE REPORT Observed: 07/02/2017 Status: F Source: [facility] 12:00 AM [facility] REPOSITORY NAME: OLIVER GREEN MR#: [id number] SURGEON: Eugenio Tmopkins MD DATE OF SURGERY: 07/02/2017 OPERATIVE REPORT PREOPERATIVE DIAGNOSES: Abdominal pain and constipation since umbilical hernia with mesh repair in May of 2016. Pain is described as intractable and feeling like tearing quality when he moves his bowels. POSTOPERATIVE DIAGNOSIS: Normal colonoscopy. INDICATIONS: The patient is a 57-year-old man who was admitted with what he describes as severe abdominal pain and constipation. It feels like something is tearing in his abdomen when he moves his bowels ever since his umbilical hernia repair with mesh in May 2016. He has been back to his surgeon and they felt like everything was in order. The patient is a smoker. He has hypertension, hyperlipidemia. He has had bilateral rotator cuff repair. He has had a cholecystectomy and a laminectomy. He has history of fibromyalgia. He says that he has multiple sclerosis. It is not obvious to me if that is correct. He has an enlarged prostate on CT. He has numerous medication allergies. His CT is otherwise normal in the abdomen with no evidence of bowel pathology in the small bowel or the colon or the stomach or the pancreas or the liver or the gallbladder or the biliary tree of the pancreas or the spleen. His prostate is enlarged. The physical examinationshows him to be alert and there is a scar in the umbilical area with no recurrent hernia. No mass. No distention. Normal bowel sounds. Subjective tenderness in the umbilical area. Dr. Pennington injected the area with lidocaine yesterday and the patient got immediate relief, but then the pain recurred shortly thereafter. The patient has numerous medication allergies. PROCEDURE DETAILS: The procedure was explained, questions were answered, and consent was obtained. The patient received fentanyl 50 mcg IV, Benadryl 50 mg IV and Versed 6 mg IV and nasal O2 at 2 L/minute. The digital rectal exam showed no prostate nodules. The Olympus video colonoscope was advanced to the cecum without difficulty. There was good prep and a good view of the colon was obtained. The exam was entirely normal. The scope was withdrawn. The patient tolerated the procedure well. PLAN: The plan will be for Mylanta 30 mL 3 times a day after meals, Cytotec 100 mcg 3 times a day before meals, acetaminophen 500 mg 2 tablets 3 times a day as needed for pain and lidocaine patch to the umbilical hernia repair site and follow up with his primary care doctor in [place]. [facility] PT NAME: OLIVER GREEN MR#: [id number] [address] [place] [address] ACCT: [id number] : 62 OPERATIVE REPORT MD BRIANNA LU/MODL/[id number] CC: Eugenio Tompkins MD Primary Care Doctor [place] E/S: Eugenio Tompkins MD 07/03/17 0932 Electronically Signed [facility] PT NAME: OLIVER GREEN MR#: [id number] [address] [place] [id number] ACCT: [id number] : [address] ABD/PEL W IV & Observed: 07/01/2017 Status: F Source: [facility] ORAL CONT 2:50 PM [facility] REPOSITORY STUDY: CT ABD/PEL W IV ORAL CONT; 07/01/2017 5:05 pm INDICATION: 57 y/o M with ABDOMINAL PAIN;CONSTIPATION. COMPARISON: 05/31/2017 ACCESSION NUMBER(S): [id number] ORDERING CLINICIAN: Maile Arenas TECHNIQUE: Helical CT was performed following the intravenous administration of 100 ml IV Omnipaque 350 with oral contrast material. Reformats were performed in the coronal and sagittal plane. FINDINGS: LIMITATIONS/LINES: None. LUNG BASES: Unremarkable. PERITONEUM: No free air or free fluid. LIVER: Unremarkable. BILE DUCTS: Unremarkable. GALLBLADDER: Status post cholecystectomy. SPLEEN: Unremarkable. PANCREAS: Unremarkable. KIDNEYS/ADRENALS: Bilateral adrenals are within normal limits. There is symmetric enhancement of bilateral kidneys. No hydronephrosis. 19 mm cyst in the posterior lower pole of the left kidney. BOWEL: Bowel loops are normal in caliber without evidence of obstruction. There is moderate stool in the colon. Appendix: unremarkable BLADDER: Unremarkable. REPRODUCTIVE ORGANS: There is mild enlargement of the prostate measuring 5.5 x 3.4 x 5 cm GREAT VESSELS/RETROPERITONEUM: There are diffuse atherosclerotic changes of the abdominal aorta and iliac arteries. No evidence of aneurysmal dilation. BONES: Degenerative changes are noted in the lower lumbar spine at the L5-S1 level. SOFT TISSUE/OTHER: Postsurgical changes from bilateral inguinal hernia repairs. IMPRESSION: No acute intra-abdominal or intrapelvic abnormality. GENERAL SURG PROGRESS Observed: 07/01/2017 Status: F Source: [facility] NOTE 10:21 AM [facility] REPOSITORY [facility] Pt Name: OLIVER GREEN [address] [place] [address] MR#: [id number] [place] [address] ACCT: [id number] PROGRESS NOTE - General Surgery : 62 Service Date: 07/02/17 1520 NAME: OLIVER GREEN MR#: [id number] DATE OF SERVICE: 07/02/2017 GENERAL SURGERY PROGRESS NOTE The patient seen and examined. He is awake, alert, oriented, feels terrible. He had no improvement after ilioinguinal block except for the 1st hour or so. The pain returned. I do not have any further suggestion for this gentleman. He is scheduled for a colonoscopy today and I have told him we will wait and see what the colonoscopy shows and make further recommendation at that time. . VIRGILIO PENNINGTON MD IMS/MODL/[id number] Electronically Signed eSign Date and Time Virgilio Pennington MD 07/03/17 0902 GENERAL SURG PROGRESS Observed: 07/01/2017 Status: F Source: [facility] NOTE 12:00 AM [facility] REPOSITORY [facility] Pt Name: OLIVER GREEN [address] [place] [address] MR#: [id number] [place] [address] ACCT: [id number] PROGRESS NOTE - General Surgery : 62 Service Date: 07/01/17 1311 NAME: OLIVER GREEN MR#: [id number] DATE OF SERVICE: 07/01/2017 GENERAL SURGERY PROGRESS NOTE With the patient's permission, I performed an ilioinguinal block on the right side with marked relief of his pain and I will check him again tomorrow to see if the improvement persists. VIRGILIO PENNINGTON MD [facility]/MODL/[id number] Electronically Signed eSign Date and Time Virgilio Pennington MD 07/02/17 0729 CONSULTATION REPORT Observed: 07/01/2017 Status: F [facility] 12:00 AM [facility] REPOSITORY NAME: OLIVER GREEN MR#: [id number] [employer] AGENT: Virgilio Pennington MD DATE OF CONSULTATION: 07/01/2017 CONSULTATION REQUESTING PHYSICIAN: Dr. Tompkins. REASON FOR CONSULTATION: Abdominal pain starting in the right lower quadrant. HISTORY OF PRESENT ILLNESS: This is a 57-year-old man who is admitted with the above symptoms of pain in the right groin radiating to the left lower quadrant and left upper quadrant to the epigastrium. Intense pain started 3 days after his bilateral inguinal hernia repair. PAST MEDICAL HISTORY: Umbilical hernia repair 4 years ago, cholecystectomy in the remote past, and bilateral inguinal hernias about a year ago. Postoperatively, he complained of constipation and he was taking Percocet for pain control at that time. He still suffers from constipation. PAST SURGICAL HISTORY: Had a colonoscopy in the last 2 years with an upper endoscopy by Dr. Tompkins. ALLERGIES: He had multiple medication allergies listed in the history and physical. MEDICATIONS: Currently, he is taking albuterol sulfate HFA 18 g inhaler 1 puff q.i.d., docusate sodium 100 mg p.o. b.i.d., Linzess 145 mcg p.o. b.i.d., Remeron 30 mg tablet, and omega-3 fatty acids. On admission, his blood pressure was 120/81, temperature 36.7, pulse 92, respirations 18. PERSONAL HISTORY: Used to smoke up to 3 packs of cigarettes per day, now is down to half a pack a day, every day smoker. PHYSICAL EXAMINATION: GENERAL: He is awake, alert, cooperative. HEENT: Normocephalic eyes conjunctivae pink. Sclerae are clear, no jaundice. NECK: Supple. LUNGS: Clear. HEART: Normal sinus rhythm. ABDOMEN: Soft. There are scars of bilateral inguinal hernias. Tenderness over the right inguinal canal. Liver and spleen not enlarged. There is no [facility] PT NAME: OLIVER GREEN MR#: [id number] [address] [place] [address] ACCT: [id number] : 62 CONSULTATION ascites. Bowel sounds are present. No guarding or rigidity. IMPRESSION: Right inguinal pain, probably related to mesh repair of the inguinal hernia. PLAN: Diagnostic ilioinguinal nerve block to see if he responds to that in terms of his pain control. VIRGILIO PENNINGTON MD [facility]/MODL/[id number] E/S: Virgilio Pennington MD 07/02/17 0729 Electronically Signed [facility] PT NAME: OLIVER GREEN MR#: [id number] [address] [place] [id number] ACCT: [id number] : 62 CONSULTATION US RETROPERITONEAL LIMITED Observed: 06/24/2017 Status: F Source: [facility] 4:47 PM SYSTEM REPOSITORY Patient Name: OLIVER CUNNINGHAM Ultrasound Exam Date/Time 06/24/2017 16:25:00 EDT Exam US Retroperitoneal Limited Ordering Physician ERNESTO JONES DANIEL M Accession Number [id number] CPT4 Codes 87828 () Reason For Exam flank pain Report Ultrasound kidneys HISTORY: Right flank pain COMPARISON: CT 06/18/2017 Right kidney measures 10.4 x 5.7 x 5.8 cm. Left kidney measures 10.2 x 6.0 x 6.3 cm. No hydronephrosis. No kidney stones. A 1.9 cm simple cyst in the left kidney. The bladder is unremarkable. Prostate gland measures 4.5 x 3.5 x 4.3 cm. IMPRESSION: Simple cyst in the left kidney. Report Dictated on Final Dictating Physician: MD ZAVALETA MALAY Signed Date and Time: 06/24/2017 4:49 pm Signed by: MD ZAVALETA MALAY Transcribed Date and Time: 06/24/2017 4:50 CTA ABD AORTA + Observed: 06/22/2017 Status: F Source: [facility] ILIOFEMORAL 4:18 PM SYSTEM REPOSITORY Patient Name: OLIVER CUNNINGHAM CT Exam Date/Time 06/22/2017 15:51:03 EDT Exam CTA Abd Aorta + Iliofemoral Ordering Physician MD LUNA MICHAEL JAMES Accession Number [id number] CPT4 Codes 19579 (), Q9967 () Reason For Exam worsening Inguinal abdominal pain Report Clinical indication: Worsening in coronal abdominal pain. COMPARISON: 06/18/2017. TECHNIQUE: 1.[address] images were obtained of the abdomen, pelvis, and lower extremities after the uneventful IV administration of 75 mL of Isovue-370. Image acquisition was timed for maximal opacification of the abdominal aorta and distal vasculature. Images are reformatted in coronal sagittal projections. Additionally, 3-D reformats were performed by myself on a separate workstation. FINDINGS: CTA abdomen and pelvis: Abdominal aorta is widely patent with no hemodynamically significant stenosis or dissection. There is no aneurysmal dilatation. Scattered circumferential calcified and noncalcified plaque is present. The celiac axis, SMA, renal arteries, and GLYNN are patent. Hepatic arterial anatomy is conventional. The common iliac arteries, internal and external carotid arteries, and common femoral arteries are patent with no hemodynamically significant stenosis or aneurysm formation. CTA right lower extremity: The right common femoral artery, superficial femoral artery, and popliteal artery are patent with no hemodynamically significant stenosis. There is a normal intrarenal trifurcation however only the posterior tibial artery reaches the level of the foot. CTA left lower extremity: The left common femoral artery, superficial femoral artery, and popliteal artery are patent. There is a normal infrapopliteal trifurcation. The infrapopliteal vessels are diminutive. The anterior tibial artery and posterior tibial arteries reach the level of the foot. CT ABDOMEN: The liver, spleen, pancreas, kidneys, and adrenal glands are normal. The patient is status post a cholecystectomy. A simple cyst arises off the midpole of the left kidney. The bowel is of normal caliber throughout without evidence of wall thickening or obstruction. The appendix is normal. No enlarged intra-abdominal lymph nodes or free fluid is identified. The mesentery is normal and there is no free air. The osseous structures are unremarkable. CT PELVIS: The rectum, sigmoid, and bladder are normal. There is soft tissue density bilaterally adjacent to the deep inguinal ring likely from prior surgery. No enlarged intrapelvic lymph nodes or free fluid is identified. Evaluation of the osseous structures show multilevel degenerative changes of the lumbar spine. IMPRESSION: CTA abdomen pelvis: Patent abdominal aorta without evidence of aneurysmal dilatation or dissection. CTA right lower extremity: Patent vessels with no hemodynamically significant stenosis. Normal infrapopliteal trifurcation. CTA left lower extremity: Patent vessels with no hemodynamically significant stenosis. Normal infrapopliteal trifurcation. CT ABDOMEN: No acute intra-abdominal disease process. Normal appendix. CT PELVIS: No acute intrapelvic disease process. Soft tissue density adjacent to the deep inguinal rings bilaterally. This can be seen as a sequela of prior hernia surgery. Clinical correlation is requested. Report Dictated on Final Dictating Physician: MD MIMS YUN ROBERT Signed Date and Time: 06/22/2017 4:32 pm Signed by: MD MIMS YUN ROBERT Transcribed Date and Time: 06/22/2017 4:33 CT ABDOMEN/PELVIS W/O Observed: 06/18/2017 Status: F Source: [facility] CONTRAST 3:57 PM SYSTEM REPOSITORY Patient Name: OLIVER CUNNINGHAM CT Exam Date/Time 06/18/2017 15:51:[address] Abdomen/Pelvis (No PO, No IV) Ordering Physician Sherwin NAIR MICHAEL LEWIS Accession Number [id number] CPT4 Codes 76233 (CT Abdomen/Pelvis (No PO, No IV)) Reason For Exam right lower quadrant pain radiates to chest for past [address] ABDOMEN AND PELVIS WITHOUT CONTRAST CLINICAL INDICATION: Persistent right lower quadrant pain for many months TECHNIQUE: Transaxial sequence through the abdomen and pelvis without contrast with 3 mm reconstruction. Sagittal coronal reconstruction images included. COMPARISON: CT from 05/23/2017 FINDINGS: Exam quality: This examination is limited for the evaluation of solid organs and vascular structures due to the lack of intravenous contrast and limited for evaluation of the gastrointestinal tract due to lack of oral contrast. Chest base: Normal. Liver: Normal size and contour. No identifiable lesion. Biliary tree: Normal caliber . All bladder is surgically absent Spleen: Normal. Adrenals: Normal. Pancreas: Unremarkable. Kidneys: Low-attenuation left renal lesion is noted along the posterior border, measuring 2 cm, corresponding to a cyst as previously noted. No other renal lesion is identified. Normal renal contours are noted. Renal collecting systems: No calculi, hydronephrosis or ureteral dilatation. Free fluid: None. Retroperitoneal/mesenteric lymphadenopathy: None. Aorta: Normal caliber. Bowel: Normal caliber. A normal appendix is identified. Abdominal wall: Normal. Bladder: No calculi or filling defects. Pelvic organs/viscera: No mass identified. Pelvic lymphadenopathy: None. Osseous structures: Spurring and disc space narrowing is noted at L5-S1. IMPRESSION: 1. No acute abdomen identified throughout the abdomen and pelvis on this noncontrast study 2. Normal appendix 3. Degenerative change at L5-S1. Report Dictated on Final Dictating Physician: MD CARDENAS JEFFREY Signed Date and Time: 06/18/2017 4:01 pm Signed by: MD CARDENAS JEFFREY Transcribed Date and Time: 06/18/2017 4:02 CR CHEST PORTABLE Observed: 06/18/2017 Status: F Source: [facility] 12:38 PM SYSTEM REPOSITORY Patient Name: OLIVER CUNNINGHAM Diagnostic Radiology Exam Date/Time 06/18/2017 12:25:00 EDT Exam CR Chest Portable Ordering Physician BAILEY MATOS, PIERCE Reina Accession Number [id number] CPT4 Codes 79776 () Reason For Exam chest pain Report EXAM TYPE: RADIOLOGIC EXAMINATION, CHEST, SINGLE VIEW FRONTAL (CXR SINGLE VIEW) EXAM DATE AND TIME: 06/18/2017 12:25 PM EDT INDICATION: Chest pain COMPARISON: 06/16/2017 TECHNIQUE: A single frontal view of the thorax was obtained and reviewed. Special views: None. IMPRESSION: 1. Lines/Tubes/Devices/Hardware: None.. 2. Lungs: No consolidation or pulmonary edema. 3. Pleura: No definite effusion. No definite pneumothorax. 4. Heart and mediastinum: Normal cardiomediastinal contours. 5. Upper abdomenNo acute process seen. Report Dictated on Final Dictating Physician: MD STEARNS JOHN Signed Date and Time: 06/18/2017 12:39 pm Signed by: MD STEARNS JOHN Transcribed Date and Time: 06/18/2017 12:40 CR ABDOMEN AP Observed: 06/16/2017 Status: F Source: [facility] 4:06 PM SYSTEM REPOSITORY Patient Name: OLIVER CUNNINGHAM Diagnostic Radiology Exam Date/Time 06/16/2017 15:33:26 EDT Exam CR Abdomen AP Ordering Physician CHITO TAMAYO DIANE L Accession Number [id number] CPT4 Codes 84370 () Reason For Exam abd pain, ?constipation Report ABDOMEN RADIOGRAPH: Indication: 57-year-old; abdominal pain and constipation. Views: Supine views of abdomen and pelvis Comparison: 02/05/2017 FINDINGS AND IMPRESSION: Cholecystectomy clips are present in the right upper quadrant. The bowel gas pattern is nonspecific and nondilated. The osseous structures appear intact. Report Dictated on Final Dictating Physician: MD PAT JENNIFER R Signed Date and Time: 06/16/2017 4:07 pm Signed by: MD PAT JENNIFER R Transcribed Date and Time: 06/16/2017 4:08 CR CHEST PORTABLE Observed: 06/16/2017 Status: F Source: [facility] 4:04 PM SYSTEM REPOSITORY Patient Name: OLIVER CUNNINGHAM Diagnostic Radiology Exam Date/Time 06/16/2017 15:33:26 EDT Exam CR Chest Portable Ordering Physician CHITO TAMAYO DIANE L Accession Number [id number] CPT4 Codes 83543 () Reason For Exam chest pain Report CHEST PORTABLE: Indication: 57-year-old; chest pain and shortness of breath Views: Portable frontal Comparison: 06/12/2017 Time: 15:28 on 06/16/2017 FINDINGS: Cardiac monitoring wires and leads are present. The trachea is midline. The cardiomediastinal silhouette is within normal limits. The lungs are symmetrically inflated without a pneumothorax or pleural effusion. The lung apices are clear. The exam is stable compared to prior. IMPRESSION: No acute cardiopulmonary process. Stable exam. Report Dictated on Final Dictating Physician: MD PAT JENNIFER R Signed Date and Time: 06/16/2017 4:06 pm Signed by: MD PAT JENNIFER R Transcribed Date and Time: 06/16/2017 4:07 UA COMPLETE Collected: 06/14/2017 Status: F Source: [facility] 4:25 PM [facility] REPOSITORY Order Comment: CONSERVATION TYPE CODE TESTS RESULT OUT OF RANGE REFERENCE UNITS LAB L600.46004 YELLOW Normal COLOR YELLOW LAB L600.79004 CLEAR Normal APPEARANCE CLEAR LAB L600.82118 1.005-1.030 Normal SPEC GRAV 1.014 LAB L600.66108 5.0-8.0 Normal UA PH 6.0 LAB L600.54835 NEGATIVE Normal GLUCOSE NEGATIVE LAB L600.32714 NEGATIVE ABNORMAL KETONE 5 mg/dl LAB L600.85365 NEGATIVE Normal BILIRUBIN NEGATIVE LAB L600.64874 NORMAL Normal UROBIL NORMAL LAB L600.72056 NEGATIVE Normal PROTEIN NEGATIVE LAB L600.51912 NEGATIVE Normal BLOOD NEGATIVE LAB L600.43876 mg/dL Normal UA ASC ACID NEGATIVE LAB L600.12564 NEGATIVE Normal NITRITE NEGATIVE LAB L600.90082 NEGATIVE Normal LEUK ESTERASE NEGATIVE Performed By: #### L600.77436 #### Test performed at: [address] [address] LIMIT UR TOX Collected: 06/14/2017 Status: F Source: [facility] 4:23 PM [facility] REPOSITORY Order Comment: CONSERVATION TYPE CODE TESTS RESULT OUT OF RANGE REFERENCE UNITS LAB L600.16652 5.0-8.0 Normal PH 6.0 TOX LAB L600.17024 Negative Normal UR NEGATIVE DAPHNEY Result Comment: KATDPQ=034 LAB L600.32689 Negative UR Normal JENNIFER/THC NEGATIVE Result Comment: CUTOFF=50 LAB L600.20021 Negative Normal UR NEGATIVE AMPH Result Comment: ZXEBZW=5203 LAB L600.56183 Negative Normal UR ECSTASY NEGATIVE Result Comment: NUNJTN=145 LAB L600.16210 Negative Normal UR NEGATIVE ARCHANA Result Comment: WCWRIT=851 LAB L600.47538 Negative Normal UR NEGATIVE NAOMI Result Comment: MBAPDC=581 LAB L600.33245 Negative Normal UR NEGATIVE METH Result Comment: QYHODC=148 LAB L600.44590 Negative Normal NEGATIVE UR PCP Result Comment: CUTOFF=25 LAB L600.52961 Negative UR Normal OXYCOCONE NEGATIVE Result Comment: FOSQVN=423 LAB L600.99421 Negative Normal UR OPIAT NEGATIVE Result Comment: IHJFDN=082 LAB L600.13823 Normal TOX COMMENT *PLEASE NOTE: Result Comment: UNCONFIRMED Toxicology results. For MEDICAL purposes only. LAB L600.62462 Negative UR Normal BUPREN/NORBU NEGATIVE Result Comment: CUTOFF=10 Performed By: #### L600.92886 #### Test performed at: [address] [address] PORTABLE CHEST Observed: 06/14/2017 Status: F Source: [facility] 3:13 PM [facility] REPOSITORY STUDY: PORTABLE CHEST; 06/14/2017 3:31 pm INDICATION: ABD CP. COMPARISON: 06/06/2017 ACCESSION NUMBER(S): [id number] ORDERING CLINICIAN: Sophy Alcocer FINDINGS: CARDIOMEDIASTINAL SILHOUETTE: Cardiomediastinal silhouette is normal in size and configuration. LUNGS: Lungs are clear. The lung bases are not included. ABDOMEN: No remarkable upper abdominal findings. BONES: No acute osseous changes. IMPRESSION: No acute cardiopulmonary process. CBC Collected: 06/14/2017 Status: F Source: [facility] 3:12 PM [facility] REPOSITORY Order Comment: CONSERVATION TYPE CODE TESTS RESULT OUT OF RANGE REFERENCE UNITS LAB L200.09958 3.9-11.0 K/uL High WBC 15.5 LAB L200.21786 3.5-5.5 M/uL Normal RBC 4.86 LAB L200.25792 14.0-16.5 g/dL Normal HGB 15.8 LAB L200.06604 39.0-55.0 % Normal HCT 44.4 LAB L200.05739 80.0-100.0 fL Normal MCV 91.4 LAB L200.18444 25.4-34.6 pg Normal MCH 32.5 LAB L200.31665 31.5-36.5 g/dL Normal MCHC 35.6 LAB L200.36210 11.5-14.5 % Normal RDW 12.4 LAB L200.59330 140-440 K/uL Normal PLT 270 LAB L200.76747 8.7-12.4 fL Normal MPV 8.8 LAB L200.00288 0-0.2 /100 WBC Normal NRBC % 0.1 LAB L200.82284 0-0.012 K/uL High NRBC # 0.020 Performed By: #### L200.19041 #### Test performed at: [place] [id number] COMP META PANEL Collected: 06/14/2017 Status: F Source: [facility] 3:12 PM [facility] REPOSITORY Order Comment: CONSERVATION TYPE CODE TESTS RESULT OUT OF RANGE REFERENCE UNITS LAB L500.45817 136-145 mmol/L Normal NA 137 LAB L500.58069 3.5-5.1 mmol/L Normal K 3.6 LAB L500.52132 98-107 mmol/L Normal CL 103 LAB L500.24626 21-32 mmol/L Normal CO2 21 LAB L500.28220 74-106 mg/dL High GLU 155 LAB L500.35092 7-18 mg/dL Normal BUN 9 LAB L500.79498 0.700-1.300 mg/dL Normal CREAT 0.840 LAB L500.91884 6.4-8.2 gm/dL Normal TP 7.3 LAB L500.32987 3.4-5.0 gm/dL Normal ALB 4.0 LAB L500.71697 8.5-10.1 mg/dL Normal CA 8.9 LAB L500.35285 0.2-1.0 mg/dL Normal BILI 0.3 TOTAL LAB L500.73929 15-37 U/L Low AST 13 LAB L500.73532 13-61 U/L Normal ALT 22 LAB L500.26754 45-117 U/L Normal ALK PHOS 75 TOTAL Performed By: #### L500.26606, L500.68697, L500.67632, L500.73257, L500.80820 #### Test performed at: [place] [address] GFR ESTIMATE Collected: 06/14/2017 Status: F Source: [facility] 3:12 PM [facility] REPOSITORY Order Comment: CONSERVATION TYPE CODE TESTS RESULT OUT OF RANGE REFERENCE UNITS LAB L500.70071 > 60 Normal IF non-AFR > 60 AMER LAB L500.50940 > 60 Normal IF > 60 AMER Result Comment: eGFR (Estimated GFR) Units of measure:mL/min/1.73 meters sq. *CALCULATION REVISED 01/25/2015;IDMS-traceable MDRD equation eGFR is derived from the reexpressed MDRD Study equation using the following parameters: serum creatinine, age, gender and race. An eGFR<60 mL/min/1.73m2 for >3 months is consistent with chronic kidney disease. Refer to KDOQI guidelines for clinical interpretation. Performed By: #### L500.38351, L500.65613, L500.75270, L500.10183, L500.33173 #### Test performed at: [place] [address] CHEST PAIN PNL Collected: 06/14/2017 Status: F Source: [facility] 3:12 PM [facility] REPOSITORY Order Comment: CONSERVATION TYPE CODE TESTS RESULT OUT OF RANGE REFERENCE UNITS LAB L500.74343 0.01-0.045 ng/mL Normal TROPONIN I < 0.015 Performed By: #### L500.94718, L500.39090, L500.08219, L500.03688, L500.24972 #### Test performed at: [place] [address] TANYA Collected: 06/14/2017 Status: F Source: [facility] 3:12 PM [facility] REPOSITORY Order Comment: CONSERVATION TYPE CODE TESTS RESULT OUT OF RANGE REFERENCE UNITS LAB L500.45823 25-115 U/L Normal TANYA 54 Performed By: #### L500.46660, L500.58460, L500.08409, L500.19496, L500.33541 #### Test performed at: [place] [id number] LIPASE Collected: 06/14/2017 Status: F Source: [facility] 3:12 PM [facility] REPOSITORY Order Comment: CONSERVATION TYPE CODE TESTS RESULT OUT OF RANGE REFERENCE UNITS LAB L500.88059 73-393 U/L Normal LIPASE 182 Performed By: #### L500.27866, L500.94357, L500.24734, L500.34313, L500.60495 #### Test performed at: [place] [address] TROPONIN QUANT Collected: 06/14/2017 Status: F Source: [facility] 3:12 PM [facility] REPOSITORY Order Comment: CONSERVATION TYPE CODE TESTS RESULT OUT OF RANGE REFERENCE UNITS LAB L500.97789 0.01-0.045 ng/mL Normal TROPONIN I < 0.015 Performed By: #### L500.98490 #### Test performed at: [place] [address] EKG Observed: 06/14/2017 Status: F Source: [facility] 3:12 PM [facility] REPOSITORY Acquired on 06/14/2017 1455 Vent. Rate : 106 BPM Atrial Rate : 106 BPM P-R Int : 124 ms QRS Dur : 092 ms QT Int : 338 ms P-R-T Axes : 083 090 084 degrees QTc Int : 448 ms Sinus tachycardia Rightward axis Borderline ECG When compared with ECG of 03-APR-2016 18:39, No significant change was found Confirmed by JAVI ESPAÑA, CHERRIE Saldaña ([id number]) on 06/18/2017 3:05:58 AM Referred By: Confirmed By:CHERRIE CALDWELL MD [id number] 2017 [facility] PT NAME: OLIVER GREEN MR#: [id number] [address] [place] [address] ACCT: [id number] : 61 EKG REPORT CASE MANAGEM Observed: 06/14/2017 Status: COMPLETED Source: [facility] 11:21 AM [facility] OTHER [facility] REPOSITORY HNO ID: [id number] Author: Cheyenne Fernández) Hannah Service: (none) Author Type: Electric Stove Installer Type: Care Mgt Progress Note Filed: 06/14/2017 12:02 PM Note Text: CARE MANAGEMENT PROGRESS NOTE SERVICE DATE: 06/14/2017 SERVICE TIME: 11:00 am LOS: 0 days VINNY came to advise MIA that pt with IPOC presented to the ED. EMR and IPOC reviewed. MIA met with pt bedside, pt confirmed he presented to the ED for pain. Pt stated he sees Dr. Alex in pain management and receives injections for neck and back pain, which the pt explained he feels are helpful. Pt noted he had an appointment scheduled for today. Pt told SW that pain management does not address his abdominal pain and told SW about his frustration with GI. Pt explained his frustration with getting imaging done and reviewing results. Pt also stated he is frustrated with [facility] and feels he has been jerked around. SW asked pt if he had seen any providers from another health system and pt nodded but did not provide any further information. Pt reported he is trying to pursue legal action however stated he has not been successful without the results of his CT. Pt reported he lives with his father and noted that both his father and his daughter are supportive. Per pt, he laid on his stomach for a year in the past. Pt confirmed he sees psychiatry at [facility]. Pt confirmed counseling is available there. Pt declined interest in counseling and stated I'm not crazy. SW encouraged pt to reconsider for supportive benefits. Pt confirmed he drove himself to the ED and plans to transport himself at d/c. VINNY came to discuss results and plan of care with pt while SW was present. VINNY encouraged pt to follow up with GI and reviewed results of pt's CT from Dec 2015, per pt's request. VINNY was present when SW asked pt about his d/c transportation. Per IPOC, SW encouraged pt to consider counseling. Pt does not appear to be interested in counseling at this time. Pt is aware of counseling services offered at [facility]. Pt believes his father and daughter are supportive. Pt reported he is a patient of Dr. Palomino for pain management and feels pain management services are effective for neck and back pain but not abdominal pain. SIGNATURE: EMILY BORDEN PATIENT NAME: Oliver Cunningham DATE: June 14, 2017 TIME: 11:21 AM PAGER/CONTACT #: [phone] ED NOTE Observed: 06/14/2017 Status: COMPLETED Source: [facility] 11:14 AM CLINIC OTHER CAMPUS REPOSITORY HNO ID: [id number] Author: Ger (Kimberlee) KIMBERLEE Lombardo Service: (none) Author Type: Registered Nurse Type: ED Notes Filed: 06/14/2017 11:14 AM Note Text: Pt up for discharge, pt verbalizes understanding of discharge instructions. Teach back method use. Pt discharged from ER with out further questions for the nurse. HIGH SENS TROPONIN T Collected: 06/14/2017 Status: F Source: [facility] 10:43 AM [facility] REPOSITORY TYPE CODE TESTS RESULT OUT OF REFERENCE UNITS RANGE LAB HSTN <12 ng/L High Sensitivity ILEANA 6 Result Comment: When assessing risk for acute coronary syndromes: In patients undergoing blood draw greater than or equal to 2 hours from symptom onset, with history of very low to moderate risk and non-ischemic ECG, an initial hs-Troponin T less than 12 ng/L AND a 1 hour delta hs-Troponin T less than 3 ng/L should be considered very low risk for 30 day MACE. Performed By: #### HSTNT #### [facility] [address] [facility] [phone] XR CHEST 2V FRONTAL/LAT Observed: 06/14/2017 Status: F Source: [facility] 9:53 AM [facility] REPOSITORY * * *Final Report* * * DATE OF EXAM: Jun 14 2017 9:53AM MDX 5291 - XR CHEST 2V FRONTAL/LAT / PROCEDURE REASON: Chest pain * * * * Physician Interpretation * * * * EXAMINATION: CHEST RADIOGRAPH (2 VIEW FRONTAL and LATERAL) Clinical History: Chest pain MQ: XC2_4 Comparison: 06/06/2017 RESULT: Lines, tubes, and devices: EKG leads overlie the thorax. Lungs and pleura: No focal consolidation, significant pleural effusion or pneumothorax. Cardiomediastinal silhouette: Within normal limits. Other: No acute osseous abnormality is identified. IMPRESSION: No acute radiographic abnormality is evident. Nutrition Services Worker: PSCB Transcribe Date/Time: Jun 14 2017 9:57A Dictated by : DARVIN MABRY MD This examination was interpreted and the report reviewed and electronically signed by: DARVIN MABRY MD on Jun 14 2017 9:59AM EST [id number] ED PROV NOTE Observed: 06/14/2017 Status: COMPLETED Source: [facility] 9:47 AM [facility] REPOSITORY HNO ID: [id number] Author: Angel Anguiano) Addi Service: (none) Author Type: Physician Circuit Tester Type: ED Provider Notes Filed: 06/14/2017 11:13 AM Note Text: ED Provider Note Patient Name: Oliver Cunningham SERVICE DATE: 06/14/17 History Patient presents with: Chest Pain Shortness of Breath HPI Comments: 57 year old male with a past medical history of hypertension, hyperlipidemia, COPD, chronic abdominal pain, with the care plan in place, presents to the emergency department a chief complaint of chest pain and shortness of breath ?2 weeks. Patient states the pain initially started in his lower abdominal region and is radiated towards the chest. He describes the pain as a crushing pain in the middle of his chest that he rates as 10 out of 10. He denies any nausea or vomiting, fevers or chills, cough, leg swelling, history of PE or DVT. Denies any recent travel or surgery. History provided by: Patient and medical records PAST MEDICAL HISTORY Diagnosis Date - Black spider bite 10/2007 - Cervical radiculopathy - CHI (closed head injury) 20 years ago. 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 PAST SURGICAL HISTORY Procedure Laterality Date - AMPUTATION FINGER/THUMB 05/29/10 Traumatic, Right middle, ring and distal - BACK SURGERY HX - CHOLECYSTECTOMY HX - COLONOSCOPY 11/20 - COLONOSCOPY 03/2016 - EGD W/O OR W/BRUSH/WASH 06/24/13 EGD - HERNIA REPAIR HX 2013 umbilical - HERNIA REPAIR HX Bilateral 05/2016 - ORTHOPEDICS SURGERY HX - PAST SURGICAL HISTORY OF 1993 lumbar diskectomy - REMOVAL GALLBLADDER 1998 laparoscopic - REMOVE TONSIL AND ADENOI UNDER AGE 13 remote - ROTATOR CUFF REPAIR 05/24/11 Right Shoulder - ROTATOR CUFF REPAIR 07/10/11 Left shoulder - TONSILLECTOMY HX FAMILY HISTORY Problem Relation Age of Onset - Emphysema Mother - Cancer Mother lung/glioblastoma(Brain) - Thyroid Mother - Heart Mother - charcot samir tooth [OTHER] Mother - GBM [OTHER] Mother - Coronary Artery Disease Father MA and CABG - MS [OTHER] Daughter - Lipids Paternal Grandfather - Lipids Brother - Psychiatry Sister - Kidney Disease Daughter - Psychiatry Daughter bipolar disorder Social History Social History Main Topics - Smoking status: Current Every Day Smoker Packs/day: 0.25 Years: 45.00 Types: Cigarettes Start date: 04/08/1977 - Smokeless tobacco: Never Used - Alcohol use No Comment: none - Drug use: No - Sexual activity: Not Currently Partners: Female ALLERGIES Allergen Reactions - Hydrocodone GI Upset Feels like bleeding Inside stomach - Lyrica [Pregabalin] Intolerance - Aubagio [Teriflunom* Other: See Comments Passed out - Bentyl [Dicyclomine* Other: See Comments - Celexa [Citalopram * Other: See Comments Terrible headaches. - Copaxone [Glatirame* Rash, Itching - Cymbalta [Duloxetin* Other: See Comments chest pain, abnormal sensation/feeling in chest - Erythromycin Other: See Comments turns everything to stone inside my bowels - Fenofibrate Intolerance chest pain and numbness - Hctz [Amiloride-Hyd* Other: See Comments Tripping, falling, no sense of balance - Lipitor [Atorvastat* Other: See Comments ruq PAIN - Miralax [Polyethyle* Swelling, GI Upset Swollen abdomen - go lightly - Mobic [Meloxicam] Itching - Morphine Other: See Comments Side pain - Penicillins Rash high fevers - Pravastatin Other: See Comments Muscle soreness - Prilosec [Omeprazol* Other: See Comments increased abdominal pressure, travels up to the chest area - Reglan [Metoclopram* GI Upset Also gives chest pain - Welchol [Colesevela* Other: See Comments Abdomen and chest pain - Xifaxan [Rifaximin] Other: See Comments Insomnia Review of Systems Constitutional: Negative for chills and fever. HENT: Negative for congestion and sore throat. Eyes: Negative for photophobia and visual disturbance. Respiratory: Positive for shortness of breath. Negative for cough. Cardiovascular: Positive for chest pain. Negative for palpitations and leg swelling. Gastrointestinal: Negative for abdominal pain and blood in stool. Genitourinary: Negative for dysuria and hematuria. Musculoskeletal: Negative for neck pain and neck stiffness. Skin: Negative for color change. Neurological: Negative for dizziness and headaches. Psychiatric/Behavioral: Negative for agitation and confusion. Physical Exam BP 118/77 Pulse 103 Temp (Src) 97.6 (Oral) Resp 20 Wt 164 lb (74.4kg) SpO2 98% Physical Exam Constitutional: He is oriented to person, place, and time. He appears well-developed. HENT: Head: Normocephalic. Eyes: Conjunctivae are normal. Neck: Normal range of motion. Cardiovascular: Normal rate and regular rhythm. Pulmonary/Chest: Effort normal. No respiratory distress. He has wheezes. He has no rales. He exhibits no tenderness. Expiratory wheezing throughout both lung bases Abdominal: Bowel sounds are normal. He exhibits no distension and no mass. There is no tenderness. There is no rebound and no guarding. Neurological: He is alert and oriented to person, place, and time. Skin: Skin is warm and dry. Psychiatric: He has a normal mood and affect. His behavior is normal. Chest Pain Pathway History of Present Symptoms: Low Risk ECG Findings: Non Ischemic ECG Number of Risk Factors: 4 Initial High Sensitivity Troponin: <12 ng/l Delta Troponin: <3 ng/l Total Heart Score: 3 Based on the above information, patient is at very low risk for a Major Adverse Cardiac Event at 30 days Diagnostic Testing ED Labs Ordered and Reviewed CBC + DIFF - Abnormal; Notable for the following: Result Value Ref Range Abs Mellette 1.17 (*) <0.87 k/uL All other components within normal limits COMP METABOLIC PANEL - Abnormal; Notable for the following: Bilirubin, Total <0.1 (*) 0.2 - 1.3 mg/dL Glucose 140 (*) 74 - 99 mg/dL All other components within normal limits PROTHROMBIN TIME/PT - Abnormal; Notable for the following: PT Sec 9.1 (*) 9.7 - 13.0 sec PT INR <0.9 (*) 0.9 - 1.3 All other components within normal limits MAGNESIUM BLD CK TOTAL AND CK-MB D-DIMER ACTIVATED PTT HIGH SENSITIVITY TROPONIN T HIGH SENSITIVITY TROPONIN T Procedures Medical Decision Making / ED Course ED Course The medical record is reviewed.Triage note is reviewed and incorporated. The nursing note is reviewed and consistent with patient's history and physical exam findings. The vital signs were reviewed the the vital signs are : BP 118/77 Pulse (!) 103 Temp 36.4 ?C (97.6 ?F) (Oral) Resp 20 Wt 74.4 kg (164 lb) SpO2 98% BMI 22.87 kg/m2 ECG directly visualized and independently interpreted by me and attending physician showed : sinus tachy with rate of 109, With non specific S-T changes, similar to prior ECG on 06/06/17 CXR directly visualized and independently interpreted by me as well as Radiologist showed: no acute process MDM: This is a well-appearing male with a pmh of chronic abdominal pain, htn, hld who presents to the ED with a chief complaint of sob, chest pain who is, afebrile , hemodynamically stable, in no acute distress patient whose symptoms are controlled in the ED with nitro, solumedrol, . Based on patient's pmh, chief complaint and physical exam findings, differential diagnoses include ACS vs PE, vs COPD, vs anxiety vs electrolyte imbalance vs MSK. Labs and imaging studies reveal cbc and cmp within normal limits , trop and ck mb within normal limits , d dimer within normal limits mag within normal limits, high sensitivity troponin of 7, repeat high sensitivity trop of of 6 Based on patient's physical exam findings, clinical picture, lab results and imaging studies that were performed here today in the ED, at this time, the following differential diagnoses such as PE is less likely due to unremarkable exam, no clinical sign of a dvt, negative d dimer. The following differential diagnosis such as pneumonia is less likely due to unremarkable cxr.The following differential diagnosis such as electrolyte imbalance is less likely due to unremarkable cmp.The following differential diagnosis such as MA is less likely due to unremarkable trop and ecg The patient has remained hemodynamically stable throughout the entire ED visit and is without objective evidence for acute process requiring urgent intervention or hospitalization. The patient and/or family had all the tests and diagnosis explained to them and were given both verbal and written discharge instructions. I answered the patient's question as well as family to the best of my ability. The patient is stable for discharge, and pt is instructed to follow up with pcp and educated to return to ed if sx worsen or any new symptoms. Pt agreeable with plan. At this time, based on the patient's history, physical exam findings, lab results and clinical picture , the most likely diagnosis is chest pain, sob Pt educated on the most common causes of Chest pain, sob Pt instructed to follow up with PCP in 1-2 days Discharge care instructions, medications, follow up instructions, and reasons to return to the ED immediately, such as worsening of symptoms or any new symptoms, were provided verbally and in writing to patient (patient guardian / medical detail representative), who verbalized understanding. This note was partially generated using [employer] voice recognition system, and there may be some incorrect words, spellings, and punctuation that were not noted in checking the note before saving Encounter Diagnosis ICD-10-CM 1. Atypical chest pain R07.89 2. SOB (shortness of breath) R06.02 (R07.89) Atypical chest pain (primary encounter diagnosis) Comment: acute Plan: dc see pcp rest home pain meds, return to ed if sx worsen (R06.02) SOB (shortness of breath) Comment: acute Plan: see pcp rest home pain meds, return to ed if sx worsen Plan The Patient was DISCHARGED: Counseled patient and family regarding lab results AND radiology results AND suspected diagnosis AND need for follow-up. Discharged home with verbal and written instructions. They were instructed to return as needed for persistent or worsening symptoms or any new concerns. Condition at time of disposition: stable SIGNATURE: Angel Fontana PA-C EKG Interpretation: RHYTHM: Sinus tachycardia at 109 beats per minute AXIS: Normal axis INTERVALS: Normal KS interval QRS COMPLEX: Normal ST SEGMENT: Nonspecific ST-T changes QT INTERVAL: Normal COMPARED WITH PRIOR: unchanged Angel Fontana (Pa) 06/14/17 1113 ED NOTE Observed: 06/14/2017 Status: COMPLETED Source: [place] 9:41 AM [facility] REPOSITORY HNO ID: [id number] Author: Danielle Petty RN Service: (none) Author Type: Registered Nurse Type: ED Notes Filed: 06/14/2017 9:41 AM Note Text: Plan of care -Monitor Patient's Vital Signs for changes in condition -Monitor patient for changes in pain -Maintain patient safety and privacy -Provide comfort measures -Call light in place Siderails up, bed in locked and low position ED NOTE Observed: 06/14/2017 Status: COMPLETED Source: [place] 9:40 AM [facility] REPOSITORY HNO ID: [id number] Author: Danielle Nuñez) KIMBERLEE Petty Service: (none) Author Type: Registered Nurse Type: ED Notes Filed: 06/14/2017 9:41 AM Note Text: Patient presents to the ED with active 10/10 chest pain. Patient states he also is SOB CBC AND DIFFERENTIAL Collected: 06/14/2017 Status: F Source: [place] 9:35 AM CLINIC OTHER CAMPUS REPOSITORY TYPE CODE TESTS RESULT OUT OF REFERENCE UNITS RANGE LAB WBC 3.70-11.00 k/uL WBC 7.89 LAB RBC 4.20-6.00 m/uL RBC 5.09 LAB HGB 13.0-17.0 g/dL Hemoglobin 16.5 LAB HCT 39.0-51.0 % Hematocrit 47.9 LAB MCV 80.0-100.0 fL MCV 94.1 LAB MCH 26.0-34.0 pG MCH 32.4 LAB MCHC 30.5-36.0 g/dL MCHC 34.4 LAB RDWCV 11.5-15.0 % RDW-CV 12.8 LAB PLTCT 150-400 k/uL Platelet Count 288 LAB MPV 9.0-12.7 fL MPV 9.0 LAB ANEUT % Neut% 49.7 LAB AANEUT 1.45-7.50 k/uL Abs Neut 3.92 LAB ALYMP % Lymph% 34.1 LAB AALYMP 1.00-4.00 k/uL Abs Lymph 2.69 LAB AMONO % Mellette% 14.8 LAB AAMONO <0.87 k/uL Abs Mellette High 1.17 LAB AEOS % Eosin% 0.9 LAB AAEOS <0.46 k/uL Abs Eosin 0.07 LAB ABASO % Baso% 0.5 LAB AABASO <0.11 k/uL Abs Baso 0.04 Performed By: #### CBCDIF, CMP, MG1, DDMER, PT, PTT #### [facility] [address] [place] [address] COMP METABOLIC PANEL Collected: 06/14/2017 Status: F Source: [place] 9:35 AM [facility] OTHER CAMP[facility] REPOSITORY TYPE CODE TESTS RESULT OUT OF REFERENCE UNITS RANGE LAB TP 6.3-8.0 g/dL Protein, Total 7.4 LAB ALB 3.9-4.9 g/dL Albumin 4.6 LAB CA 8.5-10.2 mg/dL Calcium, Total 9.4 LAB TBIL 0.2-1.3 mg/dL Low Bilirubin, Total <0.1 LAB ALKP 36-108 U/L Alkaline Phosphatase 86 LAB AST 14-40 U/L AST 20 Result Comment: Results may be falsely increased due to interference by hemolysis. Suggest reorder as clinically indicated. LAB GLU 74-99 mg/dL High Glucose 140 Result Comment: The [place] Diabetes Association (ADA) provides guidance for cutoff values for fasting glucose and random glucose. The ADA defines fasting as no caloric intake for at least 8 hours. Fas ting plasma glucose results between 100 to 125 mg/dL indicate increased risk for diabetes (prediabetes). Fasting plasma glucose results greater than or equal to 126 mg/dL meet the criteria for diagnosis of diabetes. In the absence of unequivocal hyperglycemia, results should be confirmed by repeat testing. In a patient with classic symptoms of hyperglycemia or hyperglycemic crisis, random plasma glucose results greater than or equal to 200 mg/dL meet the criteria for diagnosis of diabetes. Reference: Standards of Medical Care in Diabetes 2016, [place] Diabetes Association. Diabetes Care. 2016.39(Suppl 1). LAB BUN 9-24 mg/dL BUN 10 LAB CRET 0.73-1.22 mg/dL Creatinine 0.73 LAB NA 136-144 mmol/L Sodium 138 LAB K 3.7-5.1 mmol/L Potassium 4.3 LAB CL 97-105 mmol/L Chloride 98 LAB CO2 22-30 mmol/L CO2 28 LAB AGAP 9-18 mmol/L Anion Gap 12 LAB ALT 10-54 U/L ALT 16 LAB GFRAA eGFR- Amer. >60 LAB GFRNAA . eGFR-All Other Races >60 Result Comment: eGFR (Estimated GFR) Units of measure: mL/min/1.73 meters squared eGFR is derived from the reexpressed MDRD Study equation using the following parameters: serum creatinine, age, gender and race. The creatinine assay has been calibrated to be traceable to IDMS. An eGFR <60 mL/min/1.73m2 for >3 months is consistent with chronic kidney disease. Refer to KDOQI guidelines for clinical interpretation. In patients with unstable renal function, e.g. those with acute kidney injury, the eGFR may not accurately reflect actual GFR. Performed By: #### CBCDIF, CMP, MG1, DDMER, PT, PTT #### [facility] [address] [facility] [phone] MAGNESIUM Collected: 06/14/2017 Status: F Source: [place] 9:35 AM CLINIC OTHER CAMPUS REPOSITORY TYPE CODE TESTS RESULT OUT OF REFERENCE UNITS RANGE LAB MG 1.7-2.3 mg/dL Magnesium 2.0 Performed By: #### CBCDIF, CMP, MG1, DDMER, PT, PTT #### [facility] [address] [place] [address] D DIMER Collected: 06/14/2017 Status: F Source: [place] 9:35 AM [facility] [place] REPOSITORY TYPE CODE TESTS RESULT OUT OF REFERENCE UNITS RANGE LAB DDMER 0-500 ng/mL FEU D dimer <190 Result Comment: The D-dimer assay can be used to exclude pulmonary embolism (PE) and deep vein thrombosis (DVT) in conjunction with a low pre-test probability. For patients with a suspected DVT, a D-dimer level below 500 ng/mL FEU has a negative predictive value of 99.2%, a sensitivity of 98.9%, and a specificity of 36.1%. For patients with a suspected PE, a D -dimer level below 500 ng/mL FEU has a negative predictive value of 99.1%, a sensitivity of 97.8%, and a specificity of 41.7%. Performed By: #### CBCDIF, CMP, MG1, DDMER, PT, PTT #### [facility] [address] [place] [address] PROTIME Collected: 06/14/2017 Status: F Source: [place] 9:35 [facility] REPOSITORY TYPE CODE TESTS RESULT OUT OF RANGE REFERENCE UNITS LAB PSEC 9.7-13.0 sec Low PT Sec 9.1 LAB INR 0.9-1.3 Low PT INR <0.9 Result Comment: Vitamin K Antagonist (VKA) Therapeutic Range: INR 2 to 3 (Target INR of 2.5) Note: For patients treated with VKA drugs, such as warfarin, the [place] [employer]icians 2012 Guideline recommends a therapeutic INR range of 2 to 3 (target INR of 2.5). This recommendation includes high-risk patients with antiphospholipid syndrome with previous arterial or venous thromboembolism, current-generation mechanical or bioprosthetic aortic heart valve replacement. Note: Patients with mechanical aortic valve replacement and additional risk factors for thromboembolic events (atrial fibrillation, previous thromboembolism, LV dysfunction, hypercoagulable conditions) or an older generation mechanical AVR (i.e., ball in-Cage) or any mechanical MVR should have a INR therapeutic range of 2.5 to 3.5 (target INR of 3). Roberto GH, et al. Chest 2012, 141:7S-47S Dee RA, et al. [facility] 2017, 70: 252-289 Performed By: #### CBCDIF, CMP, MG1, DDMER, PT, PTT #### [facility] [address] [facility] [phone] APTT Collected: 06/14/2017 Status: F Source: [place] 9:35 AM [facility] OTHER [facility] REPOSITORY TYPE CODE TESTS RESULT OUT OF RANGE REFERENCE UNITS LAB APTT 23.0-32.4 sec APTT 27.3 Result Comment: Unfractionated Heparin Therapeutic Ranges: Standard Heparin Nomogram: 53 to 78 seconds (anti-Xa level of 0.3 to 0.7 U/ml) Low Dose/ACS Nomogram: 49 to 67 seconds (anti-Xa level of 0.2 to 0.5 U/ml) Stroke Treatment Nomogram: 49 to 67 seconds (anti-Xa level of 0.2 to 0.5 U/ml) Note: The APTT therapeutic range has been determined for the current lot of laboratory APTT reagent in use throughout the [facility]. Performed By: #### CBCDIF, CMP, MG1, DDMER, PT, PTT #### [facility] [address] [place] [address] CK, TOTAL AND CKMB Collected: 06/14/2017 Status: F Source: [place] 9:35 [facility] REPOSITORY TYPE CODE TESTS RESULT OUT OF REFERENCE UNITS RANGE LAB CK 51-298 U/L CK 102 LAB MB <7.7 ng/mL MB 2.7 LAB CKMBRI 0.0-4.0 % CK MB % 2.6 Performed By: #### CKCKMB #### [facility] [address] [place] [address] HIGH SENS TROPONIN T Collected: 06/14/2017 Status: F Source: [place] 9:35 AM [facility] REPOSITORY TYPE CODE TESTS RESULT OUT OF REFERENCE UNITS RANGE LAB HSTN <12 ng/L High Sensitivity ILEANA 7 Result Comment: When assessing risk for acute coronary syndromes: In patients undergoing blood draw greater than or equal to 2 hours from symptom onset, with history of very low to moderate risk and non-ischemic ECG, an initial hs-Troponin T less than 12 ng/L AND a 1 hour delta hs-Troponin T less than 3 ng/L should be considered very low risk for 30 day MACE. Performed By: #### HSTNT #### [facility] [address] [facility] [phone] CR CHEST PORTABLE Observed: 06/12/2017 Status: F Source: [facility] 12:08 PM SYSTEM REPOSITORY Patient Name: OLIVER CUNNINGHAM Diagnostic Radiology Exam Date/Time 06/12/2017 11:40:00 EST Exam CR Chest Portable Ordering Physician MD AVILA DAVID B Accession Number [id number] CPT4 Codes 62129 () Reason For Exam Chest pain Report Portable chest 06/12/2017: Clinical Information: Chest pain. Findings: A single AP portable view of the chest was obtained at 1135 hours. Comparison was made to the prior study 03/14/2017. The trachea is midline. The heart is not enlarged. No focal areas of consolidation or volume loss are seen. There are no pleural effusions. The pulmonary vasculature does not appear congested. The visualized bony structures are intact. Impression: No acute process. Report Dictated on Final Dictating Physician: MD CUNHA RISA Signed Date and Time: 06/12/2017 12:11 pm Signed by: MD CUNHA RISA Transcribed Date and Time: 06/12/2017 12:12 PROVIDER NOTE - ED Observed: 06/06/2017 Status: COMPLETED Source: [place] 6:03 PM HOSPITALS REPOSITORY Time Seen: ? Time Seen 06-Jun-2017 13:01 Triage Vital Signs: ? Triage Information Most recent Vital Sign Value Date Temp (F): 98 06-06-2017 13:00 Temp (C): 36.7 06-06-2017 13:00 Heart Rate (beats/min): 74 06-06-2017 13:00 Respirations (breaths/min): 18 06-06-2017 13:00 SpO2 (%): 97 06-06-2017 13:00 BP Systolic (mm Hg): 129 06-06-2017 13:00 BP Diastolic (mm Hg): 88 06-06-2017 13:00 History of Present Illness: This 57 year old Male presents with complaint(s) of abdominal pain(1)pt c/o abd pain with NV worsening over the last year. states he was just discharged from [facility] ED before coming here.(1) ? Additional Details Patient presents to the emergency department with abdominal pain nausea and vomiting. He states that the pain has gotten worse over the last year it started when he had an inguinal hernia surgery about a year ago. He has been seen at every hospital in [place] for this abdominal pain. He has gotten narcotic medication from all over [place] help with pain this morning he had an appointment with a GI specialist at [facility] however he did not go to his appointment he went to the emergency department for evaluation. At [facility] they ordered an x-ray. While he was in the x-ray he states that he passed out. He states that even though he passed out the physician discharged him home. Upon discharge she came over to the for evaluation of his syncopal episode as well as his abdominal pain. He denies any fever vomiting chest pain or shortness of breath the pain that he is experiencing feels like he is being crushed at his elbow. All other systems reviewed and otherwise negative Family history of hypertension heart disease and cancer Significant Events: ? Cholecystectomy: Past Surgical History, Active ? low back surgery: Past Surgical History, Active ? umbilical hernia repair: Past Surgical History, Active ? bilateral rotator cuff surgery: Past Surgical History, Active ? MS: Past Medical History, Active Allergy, Intolerance, Adverse Event: Allergies: ? Cymbalta: Drug, Unknown, Active ? Lyrica: Drug, Other, Active ? Bentyl: Drug, Other, Active ? penicillin: Drug, Unknown, Active ? Mobic: Drug, Unknown, Active ? statins: Drug Category, Unknown, Active Outpatient Medication, Review/Add Medications: * Patient Currently Takes Medications as of 16-Feb-2016 16:14 documented in Structured Notes Smoking Status: current every day smoker Alcohol Use: denies Drug Use: denies HISTORY ATTESTATION: ? Attestation I have reviewed and confirmed nurse's/medic's notes for patient's medications, allergies, medical history, and surgical history PHYSICAL EXAM: ? Physical Examination: Appearance: Well-developed, well-nourished, no acute distress, alert & oriented x3, cooperative. Skin: Warm, dry and intact with no rashes or lesions. HEENT: Head is atraumatic, hearing grossly intact, nares patent, mucus membranes moist, uvula midline, PERRLA, EOMs intact. Neck: Soft and supple without palpable lymph nodes, cervical spine is nontender. Pulmonary: Chest is nontender respirations are unlabored lungs CTA Cardiac: Heart tones are regular rate and rhythm with no murmur. Abdomen: Soft, nontender, no guarding, no masses, no hernia, rebound, or guarding, bowel sounds ?4, no CVA tenderness. Musculoskeletal: No deformity of the upper or lower extremities, no midline tenderness thoracic or lumbar spine, Neurological: Strength and sensation are intact, cranial nerves II through XII are grossly intact, no weakness is noted, no focal findings identified. Psychiatric: Alert oriented appropriate affect is normal. CURRENT ORDERS/ANIMATION DIRECTOR: ? Adult ED Bed Request, Patient Intended as: Observation Admitting Diagnosis: R55 Syncope Level of Care: Telemetry Admitting Service: Medicine Physician Contact # [phone] Decision to Admit: 06-Jun-2017, Active, 06-Jun-2017, Standard ? ED Bed Request Status, Final Results, 06-Jun-2017, Standard ? Complete Blood Count + Differential, Floor to Collect - STAT Lavender EDTA, Final Results, 06-Jun-2017, Standard ? Comprehensive Metabolic Panel, Floor to Collect - STAT Plasma/Serum Separator, Final Results, 06-Jun-2017, Standard ? Lipase, Serum, Floor to Collect - STAT Plasma/Serum Separator, Final Results, 06-Jun-2017, Standard ? PT + INR, Plasma, Floor to Collect - STAT Light Blue Citrated -Tube must be full-Deliver to lab within 4 hours., Final Results, 06-Jun-2017, Standard ? Troponin I, Serum, Floor to Collect - STAT Green Heparinized or SST, Final Results, 06-Jun-2017, Standard ? Xray Chest 2 View PA + Lateral, Wet Reading; Critical/STAT (within 1-3 hrs) Scheduled date/time: 06-Jun-2017 14:06, Final Results, 06-Jun-2017, Standard ? Electrocardiogram 12 Lead, STAT Retrieve old ECG if available, Completed, 06-Jun-2017, 06-Jun-2017, Standard ? Orthostatic Blood Pressure/Pulse, Once, Active, 06-Jun-2017, Standard ? Cardiac Monitoring - ED ONLY, <Continuous> May NOT go off unit without monitoring, Active, 06-Jun-2017, Standard ? IV, Insert, Once, Active, 06-Jun-2017, Standard ? Vital Signs, Every 2 Hours, Active, 06-Jun-2017, Standard Lab Results: ? Results I have reviewed these laboratory results: Complete Blood Count + Differential 06-Jun-2017 15:03:00 Result Value White Blood Cell Count 8.2 Nucleated Erythrocyte Count 0.0 Red Blood Cell Count 4.66 HGB 14.8 HCT 42.2 MCV 91 MCHC 35.1 PLT 252 RDW-CV 12.4 Neutrophil % 65.6 Immature Granulocytes % 0.4 Lymphocyte % 25.6 Monocyte % 7.7 Eosinophil % 0.2 Basophil % 0.5 Neutrophil Count 5.34 Lymphocyte Count 2.09 Monocyte Count 0.63 Eosinophil Count 0.02 Basophil Count 0.04 Comprehensive Metabolic Panel 06-Jun-2017 15:03:00 Result Value Glucose, Serum 109 H NA 140 K 3.7 CL 104 Bicarbonate, Serum 27 Anion Gap, Serum 13 BUN 6 CREAT 0.59 GFR-Non >60 GFR- >60 Calcium, Serum 9.4 ALB 4.3 ALKP 56 T Pro 6.5 T Bili 0.4 Alanine Aminotransferase, Serum 13 Aspartate Transaminase, Serum 15 PT + INR, Plasma 06-Jun-2017 15:03:00 Result Value Prothrombin Time, Plasma 10.2 International Normalized Ratio, Plasma 0.9 Troponin I, Serum 06-Jun-2017 15:03:00 Result Value Troponin I, Serum <0.02 Lipase, Serum 06-Jun-2017 15:03:00 Result Value Lipase, Serum 22 Diagnostic Imaging Results Review: Radiology Results: ? Results I have reviewed this radiology result: Impression: Likely obstructive pulmonary disease. No evidence of acute intrathoracic abnormality. Xray Chest 2 View PA + Lateral [Jun 06 2017 3:50PM] PROGRESS NOTE: ? ED Course: It was a pleasure to take care of Mr. Cunningham today. IV was started lab work was obtained and reviewed chest x-ray was obtained as well as an EKG. We did have a long discussion with the patient that the pain that he has been his abdomen is chronic in nature that he is under the care of a GI specialist as well that he thought [facility] the day for the chronic abdominal pain and was discharged in stable condition. However since she had the syncopal episode we would evaluate this. Patient's entire workup was negative however we will admit him to the hospital for syncope. When the admitting team came down to the the patient he states that he is not going to stay in the hospital that he is going to leave and go home and drink a fifth of whiskey. Patient did sign AGAINST MEDICAL ADVICE he is fully capable of making the decision was warned of the risk of patient verbalizes understanding and decided to leave anyway. His IV was pulled and patient walked briskly out over the emergency department Medical Decision Making: ? Discussed Clinical and Radiological Findings With patient ? Data Reviewed vital signs, nurses notes ? Diagnosis Counseling I had a detailed discussion with the patient and/or guardian regarding the historical points, exam findings, and any diagnostic results supporting the discharge/admit diagnosis. ? Conducted a Detailed Discussion with Patient and/or Guardian Regarding lab results, radiology results, need for outpatient follow-up, return to ED if symptoms worsen, persist or questions arise Diagnoses/Visit Problems: ? Syncope: DISCHARGE DISPOSITION: ? Disposition: AMA (saw a physician/midlevel provider and clinician was able to provide reasons for staying for treatment & form is signed) CONDITION ON DISPO: ? Condition on Disposition stable MEDICATION RECONCILIATION/DISCHARGE MEDS: * Outpatient Medication Status not yet specified Attestation: CRITICAL CARE: ? Is This a Critically Ill Patient no Electronic Signatures: Margarito Garcia) (Signed 13-Jun-2017 07:37) Authored: Attestation Co-Signer: Time Seen / ED Notes, Triage Vital Signs, History of Present Illness, Patient History, History Attestation, ROS, Physical Exam, Current Orders/Metal Bending Machine Operator, Lab Results Review, Diagnostic Imaging Results Review, Progress Note, Medical Decision Making, ED Disposition (REQUIRED), Attestation Everardo Guzman (MANAGER PATHOLOGY-POWER PLANT INSPECTOR) (Signed 06-Jun-2017 18:14) Authored: Time Seen / ED Notes, Triage Vital Signs, History of Present Illness, Patient History, History Attestation, ROS, Physical Exam, Current Orders/Metal Bending Machine Operator, Lab Results Review, Diagnostic Imaging Results Review, Progress Note, Medical Decision Making, ED Disposition (REQUIRED), Attestation Last Updated: 13-Jun-2017 07:37 by Margarito Garcia) References: 1. Data Referenced From Triage - ED 06/06/2017 1:00 PM TH CHEST 2 VIEW PA Observed: 06/06/2017 Status: F Source: [place] [facility] 3:16 PM HOSPITALS REPOSITORY Patient Name: OLIVER CUNNINGHAM STUDY: CHEST 2 VIEW PA AND LAT; 06/06/2017 3:16 pm INDICATION: Signs/Symptoms: cp. COMPARISON: None ACCESSION NUMBER(S): [id number] ORDERING CLINICIAN: EVERARDO GUZMAN FINDINGS: No consolidation, effusion, edema, or pneumothorax seen. Hyperinflation suggests a component of obstructive pulmonary disease. IMPRESSION: Likely obstructive pulmonary disease. No evidence of acute intrathoracic abnormality. Electronically signed by: KATY SOLIZ MD CBC AND DIFFERENTIAL Collected: 06/06/2017 Status: F Source: [place] 3:03 PM HOSPITALS REPOSITORY TYPE CODE TESTS RESULT OUT OF REFERENCE UNITS RANGE LAB WBCR(LOINC 4.4 - 11.3 x10E9/L ) WBC 8.2 LAB NRBC(LOINC 0.0-0.0 /100 WBC ) NUCLEATED RBC 0.0 LAB RBCCT(LOIN 4.50 - 5.90 x10E12/L C) RBC 4.66 LAB HGB(LOINC) 13.5 - 17.5 g/dL HGB 14.8 LAB HCT(LOINC) 41.0 - 52.0 % HCT 42.2 LAB MCV(LOINC) 80 - 100 fL MCV 91 LAB MCHC2(LOIN 32.0 - 36.0 g/dL C) MCHC 35.1 LAB PLTCT(LOIN 150 - 450 x10E9/L C) PLT 252 LAB RDWCV(LOIN 11.5 - 14.5 % C) RDW-CV 12.4 LAB NEUT(LOINC 40.0 - 80.0 % ) % NEUTROPHIL 65.6 LAB IG(LOINC) 0.0 - 0.9 % % AUTOMATED 0.4 IMMATURE GRAN Result Comment: Percent differential counts (%) should be interpreted in the context of the absolute cell counts (cells/L). LAB LYMPH(LOINC) 13.0 - 44.0 % % LYMPHOCYTE 25.6 LAB MONO(LOINC) 2.0 - 10.0 % % MONOCYTE 7.7 LAB EOS(LOINC) 0.0 - 6.0 % % EOSINOPHIL 0.2 LAB BASO(LOINC) 0.0 - 2.0 % % BASOPHIL 0.5 LAB #NEUT(LOINC) 1.20 - 7.70 x10E9/L NEUTROPHIL 5.34 LAB #LYMP(LOINC) 1.20 - 4.80 x10E9/L LYMPHOCYTE 2.09 LAB #MONO(LOINC) 0.10 - 1.00 x10E9/L MONOCYTE 0.63 LAB #EOS(LOINC) 0.00 - 0.70 x10E9/L EOSINOPHIL 0.02 LAB #BASO(LOINC) 0.00 - 0.10 x10E9/L BASOPHIL 0.04 Performed By: #### CBCDF #### [facility] [address] [place] [address] PT/INR Collected: 06/06/2017 Status: F Source: [place] 3:03 HOSPITALS REPOSITORY TYPE CODE TESTS RESULT OUT OF REFERENCE UNITS RANGE LAB PT(LOINC) 9.8 - 12.7 sec PROTHROMBIN TIME 10.2 LAB INR(LOINC) 0.9 - 1.1 PT, INR 0.9 Performed By: #### PTINR #### [facility] [address] [place] [address] TROPONIN I Collected: 06/06/2017 Status: F Source: [place] 3:[address] [place] [address] REPOSITORY TYPE CODE TESTS RESULT OUT OF REFERENCE UNITS RANGE LAB TROP2(LOINC 0.00 - 0.03 ng/mL ) TROPONIN I <0.02 Result Comment: LESS THAN 0.04 NG/ML: NEGATIVE REPEAT TESTING IN FOUR TO SIX HOURS IF CLINICALLY INDICATED. 0.04 - 0.5 NG/ML: CONSISTENT WITH POSSIBLE CARDIAC DAMAGE AND POSSIBLE INCREASED CLINICAL RISK. SERIAL MEASUREMENTS MAY HELP ASSESS EXTENT OF MYOCARDIAL DAMAGE. >0.5 NG/ML: CONSISTENT WITH CARDIAC DAMAGE, INCREASED CLINICAL RISK AND MYOCARDIAL INFARCTION. SERIAL MEASUREMENTS MAY HELP ASSESS EXTENT OF MYOCARDIAL DAMAGE. . Note: Troponin I testing is performed using different testing methodology at [facility] than at other [facility]. Direct result comparisons should only be made within the same method. . Patients receiving more than 5 mg/day of biotin may have interference in test results. A sample should be taken no sooner than eight hours after previous dose. Contact [phone] for additional information. Performed By: #### [email or web address] #### [facility] [address] [place] [address] COMPREHENSIVE PANEL Collected: 06/06/2017 Status: F Source: [place] 3:03 PM [facility] REPOSITORY TYPE CODE TESTS RESULT OUT OF REFERENCE UNITS RANGE LAB GLU(LOINC) 74 - 99 mg/dL GLUCOSE High 109 LAB SOD(LOINC) 136 - 145 mmol/L SODIUM 140 LAB K(LOINC) 3.5 - 5.3 mmol/L POTASSIUM 3.7 LAB CHLOR(LOIN 98 - 107 mmol/L C) CHLORIDE 104 LAB BIC(LOINC) 21 - 32 mmol/L BICARBONATE 27 LAB ANGAP(LOIN 10 - 20 mmol/L C) ANION GAP 13 LAB UREA(LOINC 6 - 23 mg/dL ) UREA NITROGEN 6 LAB CREA(LOINC 0.50 - 1.30 mg/dL ) CREATININE 0.59 LAB GFRFN(LOIN >60 mL/min/1.7 C) 3m2 GFR-NON AM. >60 LAB GFRAA(LOIN >60 mL/min/1.7 C) 3m2 GFR- AM. >60 Result Comment: CALCULATIONS OF ESTIMATED GFR ARE PERFORMED USING THE MDRD STUDY EQUATION FOR THE IDMS-TRACEABLE CREATININE METHODS. CLIN CHEM 2007;53:766-72 LAB CA(LOINC) 8.6 - 10.6 mg/dL CALCIUM 9.4 LAB ALB(LOINC) 3.4 - 5.0 g/dL ALBUMIN 4.3 LAB AP(LOINC) 33 - 120 U/L ALKALINE PHOSPHATASE 56 LAB TP(LOINC) 6.4 - 8.2 g/dL TOTAL PROTEIN 6.5 LAB AST(LOINC) 9 - 39 U/L AST 15 LAB TBILI(LOINC) 0.0 - 1.2 mg/dL BILIRUBIN,TOTAL 0.4 LAB ALT(LOINC) 10 - 52 U/L ALT 13 Result Comment: Patients treated with Sulfasalazine may generate falsely decreased results for ALT. Performed By: #### CMP #### [facility] [address] [place] [address] LIPASE Collected: 06/06/2017 Status: F Source: [place] 3:03 PM [facility]ITALS REPOSITORY TYPE CODE TESTS RESULT OUT OF REFERENCE UNITS RANGE LAB LIPAS(LOINC 9 - 82 U/L ) LIPASE 22 Result Comment: Venipuncture immediately after or during the administration of Metamizole may lead to falsely low results. Testing should be performed immediately prior to Metamizole dosing. Performed By: #### LIPAS #### [facility] [address] [place] [address] ED PROV NOTE Observed: 06/06/2017 Status: COMPLETED Source: [place] 12:16 PM [facility] REPOSITORY HNO ID: [id number] Author: Gloria Locke MD Service: Emergency Medicine Author Type: Physician Type: ED Provider Notes Filed: 06/06/2017 12:50 PM Note Text: ED Provider Note Patient Name: Oliver Cunningham SERVICE DATE: 06/06/17 History Patient presents with: Groin Pain: bilateral groin for months, going on years Abdominal Pain HPI Comments: She presents complaining of pain. He states he has bilateral inguinal pain that now radiates down both legs and up into his stomach and back. He states this pain is chronic and has been present for over 1 year. He states that this pain has not gotten much worse but says he cannot take it any longer. He states the pain is 10 out of 10, no aggravating or alleviating factors, burning/achy/crampy in nature. Neither any falls or trauma. Denies any numbness or tingling, rashes or skin changes, edema, lesions. Denies any chest pain or worsening shortness of breath. States he was supposed to see a vascular surgeon but they canceled his appointment. PAST MEDICAL HISTORY Diagnosis Date - Black spider bite 10/2007 - Cervical radiculopathy - CHI (closed head injury) 20 years ago. 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 PAST SURGICAL HISTORY Procedure Laterality Date - AMPUTATION FINGER/THUMB 05/29/10 Traumatic, Right middle, ring and distal - BACK SURGERY HX - CHOLECYSTECTOMY HX - COLONOSCOPY 11/20 - COLONOSCOPY 03/2016 - EGD W/O OR W/BRUSH/WASH 06/24/13 EGD - HERNIA REPAIR HX 2014 umbilical - HERNIA REPAIR HX Bilateral 05/2016 - ORTHOPEDICS SURGERY HX - PAST SURGICAL HISTORY OF 1993 lumbar diskectomy - REMOVAL GALLBLADDER 1998 laparoscopic - REMOVE TONSIL AND ADENOI UNDER AGE 13 remote - ROTATOR CUFF REPAIR 05/24/11 Right Shoulder - ROTATOR CUFF REPAIR 07/10/11 Left shoulder - TONSILLECTOMY HX FAMILY HISTORY Problem Relation Age of Onset - Emphysema Mother - Cancer Mother lung/glioblastoma(Brain) - Thyroid Mother - Heart Mother - melanie dawson tooth [OTHER] Mother - GBM [OTHER] Mother - Coronary Artery Disease Father MA and CABG - MS [OTHER] Daughter - Lipids Paternal Grandfather - Lipids Brother - Psychiatry Sister - Kidney Disease Daughter - Psychiatry Daughter bipolar disorder Social History Social History Main Topics - Smoking status: Current Every Day Smoker Packs/day: 0.25 Years: 45.00 Types: Cigarettes Start date: 04/08/1977 - Smokeless tobacco: Never Used - Alcohol use No Comment: none - Drug use: No - Sexual activity: Not Currently Partners: Female ALLERGIES Allergen Reactions - Hydrocodone GI Upset Feels like bleeding Inside stomach - Lyrica [Pregabalin] Intolerance - Aubagio [Teriflunom* Other: See Comments Passed out - Bentyl [Dicyclomine* Other: See Comments - Celexa [Citalopram * Other: See Comments Terrible headaches. - Copaxone [Glatirame* Rash, Itching - Cymbalta [Duloxetin* Other: See Comments chest pain, abnormal sensation/feeling in chest - Erythromycin Other: See Comments turns everything to stone inside my bowels - Fenofibrate Intolerance chest pain and numbness - Hctz [Amiloride-Hyd* Other: See Comments Tripping, falling, no sense of balance - Lipitor [Atorvastat* Other: See Comments ruq PAIN - Miralax [Polyethyle* Swelling, GI Upset Swollen abdomen - go lightly - Mobic [Meloxicam] Itching - Morphine Other: See Comments Side pain - Penicillins Rash high fevers - Pravastatin Other: See Comments Muscle soreness - Prilosec [Omeprazol* Other: See Comments increased abdominal pressure, travels up to the chest area - Reglan [Metoclopram* GI Upset Also gives chest pain - Welchol [Colesevela* Other: See Comments Abdomen and chest pain - Xifaxan [Rifaximin] Other: See Comments Insomnia Review of Systems Constitutional: Negative for chills, diaphoresis and fever. HENT: Negative for congestion, rhinorrhea and sore throat. Eyes: Negative for visual disturbance. Respiratory: Negative for cough, shortness of breath and wheezing. Cardiovascular: Negative for chest pain, palpitations and leg swelling. Gastrointestinal: Negative for blood in stool, constipation, diarrhea, nausea and vomiting. Endocrine: Negative for polyuria. Genitourinary: Negative for dysuria, frequency and urgency. Musculoskeletal: Negative for neck pain and neck stiffness. Skin: Negative for rash. Neurological: Negative for dizziness, weakness, light-headedness, numbness and headaches. Psychiatric/Behavioral: The patient is not nervous/anxious. Physical Exam BP 126/81 Pulse 100 Temp (Src) 97.6 (Oral) Resp 18 SpO2 98% Physical Exam Constitutional: He is oriented to person, place, and time. He appears well-developed and well-nourished. No distress. HENT: Head: Normocephalic and atraumatic. Left Ear: External ear normal. Nose: Nose normal. Mouth/Throat: Oropharynx is clear and moist. No oropharyngeal exudate. Eyes: Conjunctivae are normal. Pupils are equal, round, and reactive to light. Right eye exhibits no discharge. Left eye exhibits no discharge. No scleral icterus. Neck: Normal range of motion. Neck supple. No JVD present. No tracheal deviation present. No thyromegaly present. Cardiovascular: Normal rate, regular rhythm, normal heart sounds and intact distal pulses. Exam reveals no gallop and no friction rub. No murmur heard. Femoral, DP, TP pulses are intact and strong bilaterally Pulmonary/Chest: Effort normal and breath sounds normal. No respiratory distress. He has no wheezes. He has no rales. Abdominal: Soft. Bowel sounds are normal. He exhibits no distension. There is no tenderness. There is no rebound and no guarding. Musculoskeletal: He exhibits no edema or tenderness. No midline lumbar or thoracic tenderness to palpation, pelvis is stable to compression, full range of motion bilateral lower extremities Neurological: He is alert and oriented to person, place, and time. No cranial nerve deficit. He exhibits normal muscle tone. Coordination normal. Gait is normal in the ED. Skin: Skin is warm and dry. No rash noted. He is not diaphoretic. No erythema. Psychiatric: He has a normal mood and affect. Nursing note and vitals reviewed. Attending Note I evaluated the patient and personally participated in the donovan components. I agree with the resident's findings and plan with the following revisions and/or additions: CC groin pain HPI groin pain for years, pain gets severe and then he feels like passing out,pain radiates down legs, has had inguinal hernias repaired, same pain as usual, has taken tylenol for it no complaints otherthan the pain, no fever or chills, no nausea/vomiting/diarrhea/constipation, no UTI symptoms, no numbness or weakness PE alert wd, wn, wh 57 yo W M eyes nonicteric, m/t moist mucous membranes neck supple no JVd lungs clear CV RR abd nontender nondistended no swelling or masses, no point tenderness, spine nontender neuro nonfocal, strength equal bilaterally, motor and sensory intact, CN 2- 12 intact, gait normal, skin normal turgor, no petechiae or rashes IMP chronic groin pain Plan discharge home with f/u, tylenol for pain Signature: Gloria Locke MD Date: 06/06/2017 Time: 12:41 PM Diagnostic Testing Procedures Medical Decision Making / ED Course ED Course The Patient presents as above with findings above. The patient is well-known to this emergency department his care plan was reviewed and followed. Also reviewed care everywhere the patient was seen for the same complaints several weeks ago at an outside hospital. At that time imaging was performed and revealed some calcifications but no significant stenosis. He was advised follow-up with vascular surgery. He states the vascular surgeons cancel his appointment. Unsure at this time why that appointment was canceled. His compartments are soft and his extremities are neurovascularly intact. He is a nonfocal neurologic exam and no evidence of spinal cord compression at this time. Given the fact the patient's symptoms are chronic in nature without acute exacerbation or change in the exam as noted to not feel that further emergency department workup is indicated at this time. I advised patient and he would need follow-up with vascular surgery for which she is given the number I also advised follow-up with pain management for which she was given the number. He agrees with the plan of care and was discharged in stable condition. Encounter Diagnosis ICD-10-CM 1. Other chronic pain G89.29 Plan The Patient was DISCHARGED: Counseled patient regarding suspected diagnosis AND need for follow-up. Discharged home with verbal and written instructions. They were instructed to return as needed for persistent or worsening symptoms or any new concerns. Condition at time of disposition: stable SIGNATURE: DO Juma Turner (Res) Shelia Resident 06/06/17 1239 Gloria Locke MD 06/06/17 1250 ED NOTE Observed: 06/06/2017 Status: COMPLETED Source: [place] 11:43 AM [facility] REPOSITORY HNO ID: [id number] Author: Margarito (Rn) KIMBERLEE Valle Service: (none) Author Type: Registered Nurse Type: ED Notes Filed: 06/06/2017 11:50 AM Note Text: Pt presents to ED for c/o bilateral groin pressure like pain that radiates to back and flanks and up into torso/chest. Pt states pain is 10/10. Reports pain as chronic for months, has had multiple CT and MRI work ups but states that nothing was found. Here today for similar complaint. Received report that pt had syncopal episode while in xray. Stood for CXR and pt states he became dizzy and blacked out falling to floor. Pt denies head trauma. Pt states he has had similar syncopal episodes at home. Currently pt is slightly dizzy/light headed denies SOB or CP. Placed on coupler. NAD at this time. Will monitor. Nursing Plan of Care: -Monitor Patient's Vital Signs for changes in condition -Monitor lab results -Monitor patient for c/o pain -Maintain patient safety and privacy -Provide comfort measures -Call light in reach Siderails up, bed in locked and low position. Updated pt to plan of care. CBC AND DIFFERENTIAL Collected: 06/06/2017 Status: F Source: [place] 11:35 AM [facility] REPOSITORY TYPE CODE TESTS RESULT OUT OF REFERENCE UNITS RANGE LAB WBC 3.70-11.00 k/uL WBC 7.12 LAB RBC 4.20-6.00 m/uL RBC 4.87 LAB HGB 13.0-17.0 g/dL Hemoglobin 15.6 LAB HCT 39.0-51.0 % Hematocrit 45.2 LAB MCV 80.0-100.0 fL MCV 92.8 LAB MCH 26.0-34.0 pG MCH 32.0 LAB MCHC 30.5-36.0 g/dL MCHC 34.5 LAB RDWCV 11.5-15.0 % RDW-CV 12.4 LAB PLTCT 150-400 k/uL Platelet Count 263 LAB MPV 9.0-12.7 fL Low MPV 8.9 LAB ANEUT % Neut% 61.3 LAB AANEUT 1.45-7.50 k/uL Abs Neut 4.34 LAB ALYMP % Lymph% 26.8 LAB AALYMP 1.00-4.00 k/uL Abs Lymph 1.91 LAB AMONO % Mellette% 10.5 LAB AAMONO <0.87 k/uL Abs Mellette 0.75 LAB AEOS % Eosin% 0.8 LAB AAEOS <0.46 k/uL Abs Eosin 0.06 LAB ABASO % Baso% 0.6 LAB AABASO <0.11 k/uL Abs Baso 0.04 LAB AUNRBC 0 /100 WBC NRBCs 0.0 LAB ABNRBC <0.01 k/uL Absolute nRBC <0.01 LAB DTYP DTYPE Auto Diff Performed By: #### CBCDIF, CMP, HSTNT #### [facility] [address] [place] [id number] COMP METABOLIC PANEL Collected: 06/06/2017 Status: F Source: [place] 11:35 AM [facility] REPOSITORY TYPE CODE TESTS RESULT OUT OF REFERENCE UNITS RANGE LAB TP 6.3-8.0 g/dL Protein, Total 6.7 LAB ALB 3.9-4.9 g/dL Albumin 4.3 LAB CA 8.5-10.2 mg/dL Calcium, Total 8.9 LAB TBIL 0.2-1.3 mg/dL Bilirubin, Total 0.2 LAB ALKP 36-108 U/L Alkaline Phosphatase 58 LAB AST 14-40 U/L AST 15 LAB GLU 74-99 mg/dL Glucose High 135 Result Comment: The [place] Diabetes Association (ADA) provides guidance for cutoff values for fasting glucose and random glucose. The ADA defines fasting as no caloric intake for at least 8 hours. Fas ting plasma glucose results between 100 to 125 mg/dL indicate increased risk for diabetes (prediabetes). Fasting plasma glucose results greater than or equal to 126 mg/dL meet the criteria for diagnosis of diabetes. In the absence of unequivocal hyperglycemia, results should be confirmed by repeat testing. In a patient with classic symptoms of hyperglycemia or hyperglycemic crisis, random plasma glucose results greater than or equal to 200 mg/dL meet the criteria for diagnosis of diabetes. Reference: Standards of Medical Care in Diabetes 2016, [place] [employer]. Diabetes Care. 2016.39(Suppl 1). LAB BUN 9-24 mg/dL BUN Low 6 LAB CRET 0.73-1.22 mg/dL Creatinine Low 0.64 LAB NA 136-144 mmol/L Sodium 138 LAB K 3.7-5.1 mmol/L Potassium 3.8 LAB CL 97-105 mmol/L Chloride 99 LAB CO2 22-30 mmol/L CO2 24 LAB AGAP 9-18 mmol/L Anion Gap 15 LAB ALT 10-54 U/L ALT 13 LAB GFRAA eGFR- Amer. >60 LAB GFRNAA . eGFR-All Other Races >60 Result Comment: eGFR (Estimated GFR) Units of measure: mL/min/1.73 meters squared eGFR is derived from the reexpressed MDRD Study equation using the following parameters: serum creatinine, age, gender and race. The creatinine assay has been calibrated to be traceable to IDMS. An eGFR <60 mL/min/1.73m2 for >3 months is consistent with chronic kidney disease. Refer to KDOQI guidelines for clinical interpretation. In patients with unstable renal function, e.g. those with acute kidney injury, the eGFR may not accurately reflect actual GFR. Performed By: #### CBCDIF, CMP, HSTNT #### [facility] [address] [address] HIGH SENS TROPONIN T Collected: 06/06/2017 Status: F Source: [place] 11:35 AM [facility] REPOSITORY TYPE CODE TESTS RESULT OUT OF REFERENCE UNITS RANGE LAB HSTN <12 ng/L High Sensitivity ILEANA 9 Result Comment: When assessing risk for acute coronary syndromes: In patients undergoing blood draw greater than or equal to 2 hours from symptom onset, with history of very low to moderate risk and non-ischemic ECG, an initial hs-Troponin T less than 12 ng/L AND a 1 hour delta hs-Troponin T less than 3 ng/L should be considered very low risk for 30 day MACE. Performed By: #### CBCDIF, CMP, HSTNT #### [facility] [address] [place], [place] [address] ED TRIAGE NOTE Observed: 06/06/2017 Status: COMPLETED Source: [place] 11:29 AM [facility] REPOSITORY HNO ID: [id number] Author: VARGHESE Stoddard (Pa) Service: Emergency Medicine Author Type: Physician Circuit Tester Type: ED Triage Notes Filed: 06/06/2017 11:31 AM Note Text: ED INTAKE NOTE Patient Name: Oliver Cunningham Service Date: 06/06/17 BRIEF HPI: Per previous intake note, pt presents to ED c/o groin pain radiating to chest. Before I physically say the pt, I was called to x-ray by radiology because pt had reportedly lost consciousness. This was witnessed and pt did not hit his head. Pt regained consciousness immediately, and was AANDOx3, non post-ictal. Pt states his CP is worse after the episode. SIGNATURE: Margarito Walsh PA-C PROGRESS Observed: 06/06/2017 Status: COMPLETED Source: [place] 11:26 AM [facility] REPOSITORY HNO ID: [id number] Author: Teresita Ashton (Rt) Service: Radiology Author Type: Order Department Supervisor Type: Progress Notes Filed: 06/06/2017 11:27 AM Note Text: Radiology Service Progress Note PATIENT NAME: Oliver Cunningham DATE OF SERVICE: June 06, 2017 TIME: 11:27 AM PATIENT IDENTITY VERIFICATION COMPLETED USING TWO (2) METHODS: Patient confirmed name verbally and ID band matches.. PATIENT GENDER DATA: Male PATIENT RELEVANT IMPLANT DATA REVIEWED: Not Applicable RADIOLOGY DEPARTMENT: General X-ray: Exam(s) Completed: Chest X-Ray PERIPHERAL IV DATA: Not applicable SIGNED BY: RT Solange June 06, 2017 11:27 AM ED NOTE Observed: 06/06/2017 Status: COMPLETED Source: [place] 11:25 AM [facility] REPOSITORY HNO ID: [id number] Author: Ace Morrow Service: Emergency Medicine Author Type: Child Custody Evaluator and Order Department Supervisor Type: ED Notes Filed: 06/06/2017 11:54 AM Note Text: Labs were drawn and sent. XR CHEST 2V FRONTAL/LAT Observed: 06/06/2017 Status: F Source: [place] 11:22 AM [facility] REPOSITORY * * *Final Report* * * DATE OF EXAM: Jun 06 2017 11:22AM EGX [id number] - XR CHEST 2V FRONTAL/LAT / PROCEDURE REASON: Chest pain * * * * Physician Interpretation * * * * EXAMINATION: XR CHEST 2V FRONTAL/LAT PATIENT/TECHNOLOGIST PROVIDED HISTORY: c/o chest tightness and pelvic pain CLINICAL INFORMATION: Chest pain TECHNIQUE: Frontal and lateral views. (2 images) MQ: XC2_4 Comparison: 04/20/2016 RESULT: Lines, tubes, and devices: None. Lungs and pleura: Bilateral lung hyperinflation unchanged. No consolidation. No lung mass. No pleural effusion. The pulmonary vascular pattern is normal. There is no evidence of pulmonary edema. Hilar structures appear unremarkable. Cardiomediastinal silhouette: Normal cardiomediastinal silhouette. Other: IMPRESSION: NO ACUTE RADIOGRAPHIC ABNORMALITY. Nutrition Services Worker: TORRIE Transcribe Date/Time: Jun 06 2017 11:56A Dictated by : JAVI DIETRICH MD This examination was interpreted and the report reviewed and electronically signed by: DANNI FIGUEROA MD on Jun 06 2017 12:08PM EST [id number] ED TRIAGE NOTE Observed: 06/06/2017 Status: COMPLETED Source: [place] 11:08 AM [facility] REPOSITORY HNO ID: [id number] Author: Cee Thacker (Pa) Service: Emergency Medicine Author Type: Physician Circuit Tester Type: ED Triage Notes Filed: 06/06/2017 11:10 AM Note Text: ED INTAKE NOTE Patient Name: Oliver Cunningham Service Date: 06/06/17 BRIEF HPI: 57 year old male with pmh of HTN, HLD, MS presents with bilateral groin pain x 9 months and now radiates to his chest with lightheadedness. Reports crushing pain. BRIEF EXAM: Awake and Alert CTAB Fist to chest Tachycardic INTAKE WORKUP: Bloodwork: CBC CMP Cardiac Enzymes EKG Urinalysis Imaging: XR: chest SIGNATURE: Cee Thacker PA-C ED NOTE Observed: 06/06/2017 Status: COMPLETED Source: [place] 11:04 AM [facility] REPOSITORY HNO ID: [id number] Author: Nelda Nuñez) KIMBERLEE Black Service: Emergency Medicine Author Type: Registered Nurse Type: ED Notes Filed: 06/06/2017 11:05 AM Note Text: Pt here with c/o bilateral groin pain and abd pain. Pt states symptoms for months, going on years. Pt states it feels like my arteries are blocked in my groin and moving up to my stomach. Pt speaking in full sentences, and does not appear to be in acute distress. 12 LEAD ELECTROCARDIOGRAM Observed: 06/05/2017 Status: F Source: [place] 1:47 PM [facility] REPOSITORY [facility] Cardiovascular Services [address] [place] [address] 12 Lead EKG 06/02/17 1310 MR#: [id number] Acct: [id number] Name: OLIVER CUNNINGHAM Rep #: [id number] : 1960 57 From: Dominic Karimi MD Attending Dr: Status: DEP ER Ordering Dr: Sabas Winters MD Date: 06/02/17 Location: ED Sex: M C Admitted: Test Reason : CP Blood Pressure : / mmHG Vent. Rate : 093 BPM Atrial Rate : 093 BPM P-R Int : 122 ms QRS Dur : 090 ms QT Int : 344 ms P-R-T Axes : 076 090 073 degrees QTc Int : 427 ms Normal sinus rhythm Normal ECG Confirmed by DOMINIC KARIMI MD ([id number]), medical editor ASHLEY GARCIA ([id number]) on 06/05/2017 1:46:53 PM Referred By: ROSENDO Confirmed By:DOMINIC KARIMI MD 06/05/17 1346 Date Dominic Karimi MD CC: Kate Benavidez MD; Sabas Winters MD Signed CT ABDOMEN/PELVIS W/ Observed: 06/05/2017 Status: F Source: [place] CONTRAST 12:48 AM [facility] REPOSITORY Exam Date/Time: 06/05/2017 01:16 EST Reason for Exam: Pain Report CT Abdomen/Pelvis w/ Contrast CLINICAL STATEMENT: 57-year-old male with bilateral back and flank pain radiating to groin. COMPARISON: Correlation is made with previous contrasted CT imaging of the abdomen and pelvis 05/12/2017. TECHNIQUE: CT examination of the abdomen and pelvis following the administration of 100 mL Omnipaque 300 intravenous contrast. ?Coronal and sagittal reformations were performed. Dose reduction techniques were achieved by using automated exposure control and/or adjustment of mA and/or kV according to patient size and/or use of iterative reconstruction technique. FINDINGS: The liver is unremarkable. Gallbladder is surgically absent. No biliary ductal dilatation is present. Spleen is normal in size and configuration. The pancreas, adrenal glands, and kidneys are stable and unremarkable. There is a small simple exophytic cyst along the posterior aspect mid lower pole left kidney. The colon is unremarkable. No wall thickening or pericolonic inflammation is present. A normal appendix is clearly delineated. Small bowel is normal in caliber and course. Stomach is decompressed and unremarkable. No mass or adenopathy is identified. I suspect there has been previous bilateral inguinal herniorrhaphy. Correlation with surgical history is required. No free intracranial air or fluid is present. Bones appear stable and unremarkable. Degenerative changes are noted at the hips and spine. The visualized lung bases demonstrate some early emphysematous change. IMPRESSION: No acute process is identified at the abdomen or pelvis. I see no interval change compared with recent study of 05/12/2017. FINAL REPORT Dictated: 06/05/2017 6:00 am Jonny Schuler MD Signed (Electronic Signature): 06/05/2017 6:00 am Signed by: Jonny Schuler MD Technologist: DAVIAN STACK COMPLETE Collected: 06/05/2017 Status: F Source: [place] 12:46 AM [facility] REPOSITORY TYPE CODE TESTS RESULT OUT OF REFERENCE UNITS RANGE LAB [id number](L Yellow OINC) UA Color Normal Yellow LAB [id number](L Clear OINC) UA Clarity Normal Clear LAB [id number](L Negative OINC) UA Glucose Normal Negative LAB [id number](L Negative OINC) UA Bili Normal Negative LAB [id number](L OINC) UA Ketones Normal Trace LAB 41782183(L 1.003-1.030 OINC) UA Spec Normal Grav 1.008 LAB 11482435(L 4.6-8.0 OINC) UA pH Normal 6.0 LAB 08244664(L Negative OINC) UA Protein Normal Negative LAB 96890692(L OINC) UA Normal Urobilinogen Negative LAB 94610872(L Negative OINC) UA Nitrite Normal Negative LAB 73625385(L Negative OINC) UA Blood Normal Negative LAB 23615120(L Negative OINC) UA Leuk Est Normal Negative LAB 78273824(L 0-3 /HPF OINC) UA RBC Normal 0-3 LAB 17603684(L 0-5 /HPF OINC) UA WBC Normal 0-5 Performed By: #### [id number] #### TOY Urinalysis Automated Subsection [address] [place] [id number] BMP Collected: 06/04/2017 Status: F Source: [place] 11:31 [facility] REPOSITORY TYPE CODE TESTS RESULT OUT OF RANGE REFERENCE UNITS LAB 51004561(L 70-99 mg/dL OINC) High Glucose Lvl 106 LAB 29537242(L 7-18 mg/dL OINC) BUN Normal 9 LAB 4653923(LO 0.6-1.3 mg/dL INC) Normal Creatinine 0.7 LAB 25449403(L 5.4-30.0 ratio OINC) Normal BUN/Creat Ratio 12.9 LAB 72535881(L 8.4-10.2 mg/dL OINC) Calcium Normal Lvl 9.1 LAB 71454848(L 136-145 mEq/L OINC) Sodium Normal Lvl 138 LAB 89209129(L 3.5-5.1 mEq/L OINC) Normal Potassium Lvl 3.5 LAB 48170655(L 98-107 mEq/L OINC) Chloride Normal 105 LAB 44557808(L 24.0-30.0 mEq/L OINC) CO2 Normal 24.6 Performed By: #### [id number] #### TOY [facility] [address] [place] [address] EGFR Collected: 06/04/2017 Status: F Source: [place] 11:31 [facility] REPOSITORY Order Comment: Order added by Discern Expert. TYPE CODE TESTS RESULT OUT OF RANGE REFERENCE UNITS LAB 32047358(LO mL/min/1.73 INC) m2 Normal eGFR >60 LAB 34202116(LO mL/min/1.73 INC) m2 Normal eGFR AA >60 Performed By: #### [id number] #### TOY [facility] [place] [address] CBC W/ AUTO DIFF Collected: 06/04/2017 Status: F Source: [place] 11:[address] [place] [address] REPOSITORY TYPE CODE TESTS RESULT OUT OF RANGE REFERENCE UNITS LAB 41993018(L 3.6-11.0 E3/mcL OINC) Normal WBC 10.3 LAB 29745185(L 3.90-6.10 E6/mcL OINC) Normal RBC 4.77 LAB 03641011(L 13.5-18.0 G/DL OINC) Normal Hgb 15.4 LAB 53635426(L 42.0-52.0 % OINC) Normal Hct 45.5 LAB 49905534(L 11.5-14.5 % OINC) Normal RDW 13.8 LAB 24831977(L 27.0-31.0 pg OINC) High MCH 32.4 LAB 11313649(L 33.0-37.0 G/DL OINC) Normal MCHC 33.9 LAB 19643671(L 78.0-100.0 fL OINC) Normal MCV 95.4 LAB 74797903(L 7.4-11.0 fL OINC) Low MPV 6.9 LAB 15106587(L 130-400 E3/mcL OINC) Normal Platelet 269 Performed By: #### [id number] #### TOY [facility] [address] [place] [address] AUTO DIFF Collected: 06/04/2017 Status: F Source: [place] [address]:[address] [place] [address] REPOSITORY Order Comment: Order Added by Discern Expert. TYPE CODE TESTS RESULT OUT OF RANGE REFERENCE UNITS LAB 81476037(L 37.0-75.0 % OINC) Normal Neutro Auto 63.8 LAB 91831469(L 20.0-55.0 % OINC) Normal Lymph Auto 27.8 LAB 68912049(L 0.0-10.0 % OINC) Normal Mellette Auto 7.3 LAB 55414170(L 0.0-11.0 % OINC) Normal Eos Auto 0.7 LAB 04763903(L 0.0-2.0 % OINC) Normal Basophil Auto 0.4 LAB 66449138(L 1.4-6.5 E3/mcL OINC) High Neutro 6.6 Absolute LAB 00056286(L 1.2-3.4 E3/mcL OINC) Normal Lymph Absolute 2.9 LAB 74643512(L 0.0-0.7 E3/mcL OINC) Normal Mellette Absolute 0.7 LAB 92797752(L 0.0-0.7 E3/mcL OINC) Normal Eos Absolute 0.1 LAB 46817985(L 0.0-0.2 E3/mcL OINC) Normal Basophil 0.0 Absolute Performed By: #### [id number] #### [place] [address] XR ABDOMEN 1 VIEW Observed: 06/04/2017 Status: F Source: [place] 11:25 PM [facility] REPOSITORY Exam Date/Time: 06/04/2017 23:35 EST Reason for Exam: Abdominal pain Report XR Abdomen 1 View HISTORY: Abdominal pain. COMPARISON: None. FINDINGS: A KUB was performed. The bowel gas pattern appears unremarkable with normal distribution of gas and stool throughout the colon. No distended small bowel loops are identified. There apparently has been a previous cholecystectomy. I see no abnormal calcific densities. No supine radiographic evidence for visceromegaly or pneumoperitoneum is present. Bones appear unremarkable. IMPRESSION: Negative KUB. FINAL REPORT Dictated: 06/05/2017 6:01 am Jonny Schuler MD Signed (Electronic Signature): 06/05/2017 6:01 am Signed by: Jonny Schuler MD Technologist: [facility] ED NOTE Observed: 06/04/2017 Status: COMPLETED Source: [place] 10:57 PM [facility] REPOSITORY HNO ID: [id number] Author: Niya (Rn) KIMBERLEE Vega Service: (none) Author Type: Registered Nurse Type: ED Notes Filed: 06/04/2017 10:57 PM Note Text: Called again to room, no answer. ED NOTE Observed: 06/04/2017 Status: COMPLETED Source: [place] 10:24 PM [facility] [place] REPOSITORY HNO ID: [id number] Author: Niya LemonRn) KIMBERLEE Vega Service: (none) Author Type: Registered Nurse Type: ED Notes Filed: 06/04/2017 10:24 PM Note Text: Called to room patient, no answer at this time. ED NOTE Observed: 06/04/2017 Status: COMPLETED Source: [place] 8:51 PM [facility] OTHER [facility] REPOSITORY HNO ID: [id number] Author: Niya (Rn) KIMBERLEE Vega Service: (none) Author Type: Registered Nurse Type: ED Notes Filed: 06/04/2017 8:51 PM Note Text: Pt to ED with bilateral flank pain that has worsened over the last week. Pt reports hematuria. UA COMPLETE Collected: 06/03/2017 Status: F Source: [facility] 11:33 AM [facility] REPOSITORY Order Comment: CONSERVATION TYPE CODE TESTS RESULT OUT OF REFERENCE UNITS RANGE LAB L600.61085 YELLOW COLOR Normal YELLOW LAB L600.10291 CLEAR Normal APPEARANCE CLEAR LAB L600.67506 1.005-1.030 SPEC Normal GRAV 1.011 LAB L600.32319 5.0-8.0 UA PH Normal 6.0 LAB L600.50545 NEGATIVE GLUCOSE Normal NEGATIVE LAB L600.42265 NEGATIVE KETONE Normal NEGATIVE LAB L600.52223 NEGATIVE Normal BILIRUBIN NEGATIVE LAB L600.48407 NORMAL UROBIL Normal NORMAL LAB L600.67764 NEGATIVE PROTEIN Normal NEGATIVE LAB L600.50302 NEGATIVE BLOOD Normal NEGATIVE LAB L600.16733 mg/dL UA ASC Normal ACID NEGATIVE LAB L600.40189 NEGATIVE NITRITE Normal NEGATIVE LAB L600.02707 NEGATIVE LEUK Normal ESTERASE NEGATIVE Performed By: #### L600.28989 #### Test performed at: [place] [address] CBC W/DIFF Collected: 06/03/2017 Status: F Source: [facility] 11:33 [facility] REPOSITORY Order Comment: CONSERVATION TYPE CODE TESTS RESULT OUT OF RANGE REFERENCE UNITS LAB L200.41818 3.9-11.0 K/uL WBC Normal 9.1 LAB L200.91190 3.5-5.5 M/uL RBC Normal 4.46 LAB L200.68033 14.0-16.5 g/dL HGB Normal 14.4 LAB L200.24351 39.0-55.0 % HCT Normal 41.8 LAB L200.89904 80.0-100.0 fL MCV Normal 93.7 LAB L200.61308 25.4-34.6 pg MCH Normal 32.3 LAB L200.81665 31.5-36.5 g/dL MCHC Normal 34.4 LAB L200.00785 11.5-14.5 % RDW Normal 12.4 LAB L200.77944 140-440 K/uL PLT Normal 213 LAB L200.16441 8.7-12.4 fL MPV Normal 8.8 LAB L200.02372 % NEUTROPHILS Normal % 63.9 LAB L200.17654 % IG % Normal 0.3 LAB L200.87597 % LYMPH % Normal 26.1 LAB L200.01952 % MONOCYTE % Normal 9.1 LAB L200.47240 % EOSINOPHIL Normal % 0.3 LAB L200.83251 % BASOPHIL % Normal 0.3 LAB L200.90923 1.4-6.6 K/uL NEUTROPHIL Normal ABS 5.8 LAB L200.05674 0-0.05 K/uL IG ABS Normal 0.03 LAB L200.86855 1.2-3.5 K/uL LYMPH ABS Normal 2.4 LAB L200.88809 0.0-1.0 K/uL MONO ABS Normal 0.8 LAB L200.41177 0.0-0.5 K/uL EOS ABS Normal 0.0 LAB L200.30418 0.0-0.2 K/uL BASO ABS Normal 0.0 LAB L200.33907 0-0.2 /100 WBC NRBC % Normal 0.0 LAB L200.57213 0-0.012 K/uL NRBC # Normal 0.000 Performed By: #### L200.91214 #### Test performed at: [place] [address] COMP META PANEL Collected: 06/03/2017 Status: F Source: [facility] 11:33 AM [facility] REPOSITORY Order Comment: CONSERVATION TYPE CODE TESTS RESULT OUT OF RANGE REFERENCE UNITS LAB L500.05463 136-145 mmol/L Normal NA 142 LAB L500.23211 3.5-5.1 mmol/L Normal K 3.7 LAB L500.96845 98-107 mmol/L Normal CL 107 LAB L500.22373 21-32 mmol/L Normal CO2 29 LAB L500.94733 74-106 mg/dL High GLU 108 LAB L500.07711 7-18 mg/dL Normal BUN 8 LAB L500.27901 0.700-1.300 mg/dL Low CREAT 0.634 LAB L500.95640 6.4-8.2 gm/dL Low TP 6.3 LAB L500.69339 3.4-5.0 gm/dL Normal ALB 3.4 LAB L500.56187 8.5-10.1 mg/dL Low CA 8.4 LAB L500.93139 0.2-1.0 mg/dL Normal BILI 0.3 TOTAL LAB L500.87592 15-37 U/L Low AST 14 LAB L500.26593 13-61 U/L Normal ALT 18 LAB L500.68365 45-117 U/L Normal ALK PHOS 57 TOTAL Performed By: #### L500.48322, L500.56081, L500.53560 #### Test performed at: [place] [address] GFR ESTIMATE Collected: 06/03/2017 Status: F Source: [facility] 11:33 AM [facility] REPOSITORY Order Comment: CONSERVATION TYPE CODE TESTS RESULT OUT OF RANGE REFERENCE UNITS LAB L500.03911 > 60 Normal IF non-AFR > 60 AMER LAB L500.68951 > 60 Normal IF > 60 AMER Result Comment: eGFR (Estimated GFR) Units of measure:mL/min/1.73 meters sq. *CALCULATION REVISED 01/25/2015;IDMS-traceable MDRD equation eGFR is derived from the reexpressed MDRD Study equation using the following parameters: serum creatinine, age, gender and race. An eGFR<60 mL/min/1.73m2 for >3 months is consistent with chronic kidney disease. Refer to KDOQI guidelines for clinical interpretation. Performed By: #### L500.01694, L500.98889, L500.17195 #### Test performed at: [place] [address] LIPASE Collected: 06/03/2017 Status: F Source: [facility] 11:33 AM [facility] REPOSITORY Order Comment: CONSERVATION TYPE CODE TESTS RESULT OUT OF RANGE REFERENCE UNITS LAB L500.85947 73-393 U/L Normal LIPASE 137 Performed By: #### L500.18832, L500.26179, L500.08101 #### Test performed at: [facility] [address], [place] [address] ABDOMEN 3 VIEWS Observed: 06/03/2017 Status: F Source: [facility] 11:33 AM [facility] REPOSITORY STUDY: ABDOMEN 3 VIEWS; 06/03/2017 12:15 pm INDICATION: pain. COMPARISON: None. ACCESSION NUMBER(S): [id number] ORDERING CLINICIAN: Teresita Sykes TECHNIQUE: AP, erect and decubitus images of the abdomen were obtained. FINDINGS: The bowel pattern is unremarkable. There is no significant bowel distention. There is no obvious free air under the hemidiaphragms. The patient is status post cholecystectomy. There are degenerative changes of the spine. IMPRESSION: Nonspecific bowel gas pattern. EMERGENCY DEPARTMENT Observed: 06/03/2017 Status: F Source: [facility] 9:08 AM [facility] REPOSITORY [facility] Medical Records Department [address] [place] [address] Emergency Department Summary 06/02/17 1453 MR#: [id number] Acct: [id number] Name: OLIVER CUNNINGHAM Rep #: [id number] : 1960 57 From: Sabas Winters MD PCP: Kate Benavidez MD Status: DEP ER - ER Visit Summary Date of Service: 06/02/17 Chief Complaint: Chest pain History of Present Illness: The patient is a [address] Benavidez. He reports he has chest pain that began today approximately 7 hours ago. It is a constant pressure that is 10 out of 10 with movement of his arm and 9 out of 10 at rest. The pain is relieved by nothing. He has had nausea and shortness of breath. He has a cough that is productive clear sputum. He has chronic shortness of breath that is unchanged. Also complains of a headache is 7 out of 10 severity and is similar to prior headaches. Physical Examination: Vitals: Stable. Afebrile. General: Well-nourished and well-developed. Head: Normocephalic atraumatic. Neck: Supple, no lymphadenopathy. No JVD. Nontender. Cardiovascular: Regular rate and rhythm. No murmurs. Respiratory: No respiratory distress. Mild wheezing bilaterally with good air movement. Abdominal: Soft, mild diffuse tenderness to palpation, nondistended, normal bowel sounds. No guarding, rebound, or peritoneal signs. Back: Nontender. Extremities: Nontender, no edema. Skin: Normal color, no rash. Neurologic: Alert and oriented 3. Cranial nerves II through XII are intact. Normal strength and sensation. Psych: Normal affect. Test Results: EKG is sinus at [address] changes. Is unchanged from February 2017. Troponin is less than 0.02 with greater than 7 hours of constant pain. Chem-7 is more for glucose of 122. CBC is normal. Chest x-ray shows chronic changes. Emergency Department Course and Treatment: She was treated with prednisone p.o., Tylenol p.o., and albuterol and Atrovent aerosols. He is resting comfortably. Treatment Plan: He will be discharged 5 day burst of prednisone. Instructed to use his inhaler at home. Follow-up with his primary care physician in 5 days if not improving. Disposition: To home in improved and stable condition. Impression: 1. COPD exacerbation. 2. Atypical chest pain. 3. STEVEN score of 1. This note was generated with [employer] dictation software. It may contain incorrect words, spelling, and punctuation that were not noted in review of the chart prior to signing ED Disposition - Plan for ED Patient: Disposition: Home or Assisted Living Chief Complaint: Chest Pain Instructions: ED Chest Pain Atypical Unkn Cause Prescriptions: Prednisone [Deltasone] 60 mg PO DAILY #15 tablet Referrals: Kate Benavidez MD [Primary Care Provider] - 3-5 Days if not improving What to do if you have Problems For any increased pain, shortness of breath, bleeding, nausea or vomiting, chest pain, or any unexpected problems, contact your Primary Care Provider. Call [facility] ([phone]) or report to the closest Emergency Room. Call 911 if necessary. 06/03/17 0908 <Electronically signed by Sabas Winters MD> Date Sabas Winters MD Cosigner Signature (If Indicated): Date CC: Kate Benavidez MD CHEST PA AND LATERAL Observed: 06/02/2017 Status: F Source: [place] 1:40 PM [facility] REPOSITORY [facility] Imaging Services [address] [place] [address] Chest PA and Lateral MR#: [id number] Acct: [id number] Name: OLIVER CUNNINGHAM Rep #: [id number] : 1960 M 57 From: Nelda Cam MD PCP: Kate Benavidez MD Status: PRE ER Study: Chest PA and Lateral Date of Exam: 06/02/17 Exam# [id number] Ordering Dr: Sabas Winters MD STUDY: X-RAY CHEST REASON FOR EXAM: Male, 57 years old. Cough TECHNIQUE: Frontal and lateral views of the chest were obtained. COMPARISON: May 10, 2017 FINDINGS: The lungs are hyperinflated. There are no focal airspace opacities. There is no demonstrated pleural abnormality. The cardiac silhouette is normal in size. The mediastinum and hilar regions are unremarkable. Normal visualized pulmonary arteries. Normal visualized aortic arch and descending thoracic aorta. The thoracic spine is unremarkable. The visualized ribs, clavicles, and shoulders are unremarkable. There is no demonstrated abnormality of the visualized upper abdomen. RAD/Chest PA and Lateral IMPRESSION: There is no evidence of focal consolidation or pleural effusion. Stable COPD. Electronically Signed: Nelda Cam MD at 14:28 EST Tel Direct: [phone], Service support , CC: Kate Benavidez MD; Sabas Winters MD Nutrition Services Worker: Signed CBC W/DIFF, AUTOMATED Collected: 06/02/2017 Status: F Source: [place] 1:10 PM [facility] REPOSITORY TYPE CODE TESTS RESULT OUT OF RANGE REFERENCE UNITS LAB L100.1000 4.4-11.0 K/mm3 Normal WBC 6.0 LAB L100.1200 4.6-6.2 M/mm3 Normal RBC 4.66 LAB L100.1300 13.0-16.5 g/dl Normal HGB 14.9 LAB L100.1400 40-54 % Normal HCT 44.6 LAB L100.1500 80-94 fL High MCV 95.7 LAB L100.1600 27.0-32.0 pg Normal MCH 32.0 LAB L100.1700 32-36 g/gl Normal MCHC 33.4 LAB L100.1810 11.6-14.6 % Normal RDW CV 12.9 LAB L100.1820 35.1-43.9 fl High RDW SD 45.0 LAB L100.1900 150-450 K/mm3 Normal PLT 232 LAB L100.2000 6.2-12.0 fl Normal MPV 9.1 LAB L100.2100 47-70 % Normal NEUT% 52.3 LAB L100.2200 19-41 % Normal LY% 37.7 LAB L100.2300 0-10 % Normal MONO% 8.7 LAB L100.2400 0-5 % Normal EO% 0.8 LAB L100.2500 0-1 % Normal BASO% 0.3 LAB L100.2550 0.0-0.9 % Normal IM GRAN % 0.200 Result Comment: IG% - Immature Granulocytes (promyelocytes, myelocytes and metamyelocytes) > 1% indicates that a LEFT SHIFT is Present. LAB L100.2620 2.0-7.7 X10 3/uL Normal Absolute Neut 3.1 LAB L100.2720 0.83-4.51 X10 3/ul Normal Absolute Lymph 2.26 Performed By: #### L100.0100 #### [facility] [address] [place], [place], [address] BASIC METABOLIC Collected: 06/02/2017 Status: F Source: [place] PROFILE (BMP) 1:10 PM [facility] REPOSITORY Order Comment: 'TROP' Serial specimen #1, #2, #3, or #4: 1 TYPE CODE TESTS RESULT OUT OF RANGE REFERENCE UNITS LAB L501.0100 74-106 mg/dL High GLU 122 Result Comment: Fasting Glucose result from 100 to 125 mg/dL suggests IMPAIRED HOMEOSTASIS per A.D.A. criteria. Please note revised GLUCOSE reference range effective 2017. LAB L501.1000 7-18 mg/dL Normal BUN 7 LAB L501.1100 0.70-1.30 mg/dL Normal CREAT,SERUM 0.80 Result Comment: The validity of the calculated GFR AND GFRAA in patients over 70 years has not been determined. Clinical correlation is essential. LAB L501.1110 >60 mL/min Normal EST GFR 107 Result Comment: Non- GFR Calc LAB L501.1115 >60 mL/min Normal EST GFR - AA 129 Result Comment: GFR Calc LAB L501.1255 ml/min Normal Estimated CRCL 109.81 LAB L501.1300 10-20 RATIO Low BUN/CRE 8.8 LAB L501.2200 8.5-10 mg/dL .1 CA Normal 8.7 LAB L501.5300 136-14 mmol/L 5 NA Normal 140 LAB L501.5600 3.5-5. mmol/L 1 K Normal 3.9 LAB L501.5900 98-107 mmol/L CL Normal 103 LAB L501.6100 21.0-3 mmol/L 2.0 CO2 Normal 32.0 LAB L501.6200 5-15 GAP Normal 5 Performed By: #### L500.2500, L501.4010 #### [facility] [address] [facility] [place], [place], [id number] TROPONIN-I Collected: 06/02/2017 Status: F Source: [place] 1:10 PM [facility] REPOSITORY Order Comment: 'TROP' Serial specimen #1, #2, #3, or #4: 1 TYPE CODE TESTS RESULT OUT OF RANGE REFERENCE UNITS LAB L501.4010 <0.06 ng/mL Normal < 0.02 TROPONIN-I Result Comment: TROPONIN-I EXPECTED VALUES <0.05 NEGATIVE 0.06 - 0.59 AT RISK OF MA > OR = 0.60 SUGGEST MA Performed By: #### L500.2500, L501.4010 #### [facility] [address] [place], [address] URINALYSIS Collected: 05/31/2017 Status: F Source: [place] 2:57 PM [facility] REPOSITORY TYPE CODE TESTS RESULT OUT OF REFERENCE UNITS RANGE LAB COLU(LOINC STRAW,YELLOW ) COLOR Yellow LAB APPRU(LOIN CLEAR C) APPEARANCE CLEAR LAB SPGRU(LOIN 1.005 - 1.035 C) SPECIFIC GRAVITY 1.008 LAB EJ(LOINC) 5.0 - 8.0 pH 6.0 LAB PROTU(LOIN NEGATIVE mg/dL C) PROTEIN NEGATIVE LAB GLUCU(LOIN NEGATIVE mg/dL C) GLUCOSE NEGATIVE LAB BLDU(LOINC NEGATIVE ) BLOOD NEGATIVE LAB KETU(LOINC NEGATIVE mg/dL ) KETONES NEGATIVE LAB BILIU(LOIN NEGATIVE C) BILIRUBIN NEGATIVE LAB UROU2(LOIN 0.0 - 1.9 mg/dL C) UROBILINOGEN <2.0 LAB NITRU(LOIN NEGATIVE C) NITRITE NEGATIVE LAB LEUKU(LOIN NEGATIVE C) LEUKOCYTE ESTERASE NEGATIVE Performed By: #### UA #### [facility] [address] [place] [address] CBC AND DIFFERENTIAL Collected: 05/31/2017 Status: F Source: [place] 2:55 [facility] REPOSITORY TYPE CODE TESTS RESULT OUT OF REFERENCE UNITS RANGE LAB WBCR(LOINC 4.4 - 11.3 x10E9/L ) WBC 9.0 LAB RBCCT(LOIN 4.50 - 5.90 x10E12/L C) RBC 5.10 LAB HGB(LOINC) 13.5 - 17.5 g/dL HGB 16.8 LAB HCT(LOINC) 41.0 - 52.0 % HCT 48.2 LAB MCV(LOINC) 80 - 100 fL MCV 95 LAB MCHC2(LOIN 32.0 - 36.0 g/dL C) MCHC 34.9 LAB PLTCT(LOIN 150 - 450 x10E9/L C) PLT 229 LAB RDWCV(LOIN 11.5 - 14.5 % C) RDW-CV 12.3 LAB NEUT(LOINC 40.0 - 80.0 % ) % NEUTROPHIL 58.9 LAB LYMPH(LOIN 13.0 - 44.0 % C) % LYMPHOCYTE 30.7 LAB MONO(LOINC 2.0 - 10.0 % ) % MONOCYTE 9.3 LAB EOS(LOINC) 0.0 - 6.0 % % EOSINOPHIL 0.9 LAB BASO(LOINC 0.0 - 2.0 % ) % BASOPHIL 0.2 LAB #NEUT(LOIN 1.20 - 7.70 x10E9/L C) NEUTROPHIL 5.28 Result Comment: Percent differential counts (%) should be interpreted in the context of the absolute cell counts (cells/L). LAB #LYMP(LOINC) 1.20 - x10E9/L 4.80 LYMPHOCYTE 2.75 LAB #MONO(LOINC) 0.10 - x10E9/L 1.00 MONOCYTE 0.83 LAB #EOS(LOINC) 0.00 - x10E9/L 0.70 EOSINOPHIL 0.08 LAB #BASO(LOINC) 0.00 - x10E9/L 0.10 BASOPHIL 0.02 Performed By: #### CBCDF #### [facility] [address] [place] [address] LACTATE Collected: 05/31/2017 Status: F Source: [place] 2:[address] [place] [address] REPOSITORY TYPE CODE TESTS RESULT OUT OF REFERENCE UNITS RANGE LAB LACT(LOINC) 0.4 - 2.0 mmol/L LACTATE 1.4 Result Comment: Venipuncture immediately after or during the administration of Metamizole may lead to falsely low results. Testing should be performed immediately prior to Metamizole dosing. Performed By: #### LACT #### [facility] [address] [place] [address] COMPREHENSIVE PANEL Collected: 05/31/2017 Status: F Source: [place] [address]:[address] [place] [address] REPOSITORY TYPE CODE TESTS RESULT OUT OF REFERENCE UNITS RANGE LAB GLU(LOINC) 74 - 99 mg/dL GLUCOSE 91 LAB SOD(LOINC) 136 - 145 mmol/L SODIUM 136 LAB K(LOINC) 3.5 - 5.3 mmol/L POTASSIUM 3.7 LAB CHLOR(LOIN 98 - 107 mmol/L C) CHLORIDE 103 LAB BIC(LOINC) 21 - 32 mmol/L BICARBONATE 24 LAB ANGAP(LOIN 10 - 20 mmol/L C) ANION GAP 13 LAB UREA(LOINC 6 - 23 mg/dL ) UREA NITROGEN 8 LAB CREA(LOINC 0.50 - 1.30 mg/dL ) CREATININE 0.69 LAB GFRFN(LOIN >60 mL/min/1.7 C) 3m2 GFR-NON AM. >60 LAB GFRAA(LOIN >60 mL/min/1.7 C) 3m2 GFR- AM. >60 Result Comment: CALCULATIONS OF ESTIMATED GFR ARE PERFORMED USING THE MDRD STUDY EQUATION FOR THE IDMS-TRACEABLE CREATININE METHODS. CLIN CHEM 2007;53:766-72 LAB CA(LOINC) 8.6 - 10.3 mg/dL CALCIUM 9.6 LAB ALB(LOINC) 3.4 - 5.0 g/dL ALBUMIN 4.7 LAB AP(LOINC) 33 - 120 U/L ALKALINE PHOSPHATASE 58 LAB TP(LOINC) 6.4 - 8.2 g/dL TOTAL PROTEIN 7.5 LAB AST(LOINC) 9 - 39 U/L AST 20 LAB TBILI(LOINC) 0.0 - 1.2 mg/dL BILIRUBIN,TOTAL 0.5 LAB ALT(LOINC) 10 - 52 U/L ALT 15 Result Comment: Patients treated with Sulfasalazine may generate falsely decreased results for ALT. Performed By: #### CMP #### [facility] [address] [place] [address] LIPASE Collected: 05/31/2017 Status: F Source: [place] 2:55 PM [facility] REPOSITORY TYPE CODE TESTS RESULT OUT OF REFERENCE UNITS RANGE LAB LIPAS(LOINC 9 - 82 U/L ) LIPASE 28 Result Comment: Venipuncture immediately after or during the administration of Metamizole may lead to falsely low results. Testing should be performed immediately prior to Metamizole dosing. Performed By: #### LIPAS #### [facility] [address] [place] [address] ED NOTE Observed: 05/28/2017 Status: COMPLETED Source: [place] 2:42 PM [facility] REPOSITORY HNO ID: [id number] Author: Tessa LemonRn) KIMBERLEE Lovell Service: Emergency Medicine Author Type: Registered Nurse Type: ED Notes Filed: 05/28/2017 2:42 PM Note Text: Patient walked out. ED PROV NOTE Observed: 05/28/2017 Status: COMPLETED Source: [place] 2:17 PM [facility] REPOSITORY HNO ID: [id number] Author: Raegan Holliday) VARGHESE Mustafa Service: (none) Author Type: Physician Circuit Tester Type: ED Provider Notes Filed: 05/28/2017 2:56 PM Note Text: ED Provider Note Patient Name: Oliver Cunningham SERVICE DATE: 05/28/17 History Patient presents with: Constipation Abdominal Pain History provided by: Patient foreign language interpreter used: No 57 y/o M w/PMH of MS, chronic abdominal pain, DDD, CHI, HLD, insomnia, amputation of fingers, tobacco abuse presents c/o abdominal pain, b/l inguinal pain, intermittent CP x 9 months. States this all began when he had mesh for hernia repair placed and really wants this taken out but surgery recommended against this. His main concern today is constipation. Reports frustration that he has not found a good treatment plan to help move his bowels. Has tried OTC PO meds, suppositories, Rx meds and nothing works. States he was unable to follow up with GI last week due to transportation issues. Insurance won't cover [place]. Current regimen of Linzess and Miralax not helping. No fevers or change in pain. Sometimes abdominal pain radiates into the chest but denies currently having chest pain. His toes turn black if he sits too long. States he saw vascular surgery for this problem. He has nausea but denies vomiting. Denies new or worsening symptoms. PAST MEDICAL HISTORY Diagnosis Date - Black spider bite 10/2007 - Cervical radiculopathy - CHI (closed head injury) 20 years ago. 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 PAST SURGICAL HISTORY Procedure Laterality Date - AMPUTATION FINGER/THUMB 05/29/10 Traumatic, Right middle, ring and distal - BACK SURGERY HX - CHOLECYSTECTOMY HX - COLONOSCOPY 11/20 - COLONOSCOPY 03/2016 - EGD W/O OR W/BRUSH/WASH 06/24/13 EGD - HERNIA REPAIR HX 2013 umbilical - HERNIA REPAIR HX Bilateral 05/2016 - ORTHOPEDICS SURGERY HX - PAST SURGICAL HISTORY OF 1993 lumbar diskectomy - REMOVAL GALLBLADDER 1998 laparoscopic - REMOVE TONSIL AND ADENOI UNDER AGE 13 remote - ROTATOR CUFF REPAIR 2/16/12 Right Shoulder - ROTATOR CUFF REPAIR 07/10/11 Left shoulder - TONSILLECTOMY HX FAMILY HISTORY Problem Relation Age of Onset - Emphysema Mother - Cancer Mother lung/glioblastoma(Brain) - Thyroid Mother - Heart Mother - melanie james [OTHER] Mother - GBM [OTHER] Mother - Coronary Artery Disease Father MA and CABG - MS [OTHER] Daughter - Lipids Paternal Grandfather - Lipids Brother - Psychiatry Sister - Kidney Disease Daughter - Psychiatry Daughter bipolar disorder Social History Social History Main Topics - Smoking status: Current Every Day Smoker Packs/day: 0.25 Years: 45.00 Types: Cigarettes Start date: 04/08/1977 - Smokeless tobacco: Never Used - Alcohol use No Comment: none - Drug use: No - Sexual activity: Not Currently Partners: Female ALLERGIES Allergen Reactions - Hydrocodone GI Upset Feels like bleeding Inside stomach - Lyrica [Pregabalin] Intolerance - Aubagio [Teriflunom* Other: See Comments Passed out - Bentyl [Dicyclomine* Other: See Comments - Celexa [Citalopram * Other: See Comments Terrible headaches. - Copaxone [Glatirame* Rash, Itching - Cymbalta [Duloxetin* Other: See Comments chest pain, abnormal sensation/feeling in chest - Erythromycin Other: See Comments turns everything to stone inside my bowels - Fenofibrate Intolerance chest pain and numbness - Hctz [Amiloride-Hyd* Other: See Comments Tripping, falling, no sense of balance - Lipitor [Atorvastat* Other: See Comments ruq PAIN - Miralax [Polyethyle* Swelling, GI Upset Swollen abdomen - go lightly - Mobic [Meloxicam] Itching - Morphine Other: See Comments Side pain - Penicillins Rash high fevers - Pravastatin Other: See Comments Muscle soreness - Prilosec [Omeprazol* Other: See Comments increased abdominal pressure, travels up to the chest area - Reglan [Metoclopram* GI Upset Also gives chest pain - Welchol [Colesevela* Other: See Comments Abdomen and chest pain - Xifaxan [Rifaximin] Other: See Comments Insomnia Review of Systems Gastrointestinal: Positive for abdominal pain, constipation and nausea. Skin: Positive for color change (toes?). All other systems reviewed and are negative. Physical Exam BP 152/92 Pulse 104 Temp (Src) 97.9 (Oral) Resp 16 Ht 5' 11 (1.80m) Wt 162 lb (73.5kg) SpO2 98% BMI 22.60 kg/(m2). Physical Exam Constitutional: He appears well-developed and well-nourished. No distress. HENT: Head: Normocephalic and atraumatic. Mouth/Throat: Oropharynx is clear and moist. Neck: Neck supple. Cardiovascular: Normal rate, regular rhythm and normal heart sounds. Exam reveals no gallop and no friction rub. No murmur heard. Pulses: Femoral pulses are 2+ on the right side, and 2+ on the left side. Dorsalis pedis pulses are 2+ on the right side, and 2+ on the left side. Posterior tibial pulses are 2+ on the right side, and 2+ on the left side. Cap refill 3 seconds all toes. Does not sound tachycardic on auscultation. Pulmonary/Chest: Effort normal and breath sounds normal. No respiratory distress. He has no wheezes. He has no rales. He exhibits no tenderness. Abdominal: Soft. Bowel sounds are normal. He exhibits no distension and no mass. There is no tenderness. There is no rebound and no guarding. No hernia. Musculoskeletal: He exhibits no edema (legs without edema, erythea, or palpable cords). Neurological: He is alert. Skin: Skin is warm and dry. He is not diaphoretic. Toes normal color, well perfused without color change or mottling. Psychiatric: He has a normal mood and affect. His behavior is normal. Nursing note and vitals reviewed. Diagnostic Testing ED Labs Ordered and Reviewed - No data to display Procedures Medical Decision Making / ED Course ED Course Vital signs were reviewed. Triage records were reviewed. Medical records were reviewed. Nursing notes were reviewed and incorporated. Initial VS: HR 104 otherwise WNL 57 year old male presents to the ED with constipation and abdominal pain. Pt is afebrile, non-toxic and hemodynamically stable. Physical exam revealed soft non-tender abdomen with NABS. Non-surgical abdomen and no concern for bowel obstruction given passing flatus, no TTP. Problems are unfortunately chronic in nature and no medications have been helpful so far. Per his care plan, basic blood work ordered and pt offered nausea, pain meds (non-narcotics) but patient unfortunately walked out prior to having these drawn. Encounter Diagnosis ICD-10-CM 1. Chronic abdominal pain R10.9 G89.29 2. Slow transit constipation K59.01 Plan The Patient Eloped Condition at time of disposition: stable SIGNATURE: VINNY Ennis) VARGHESE Mustafa 05/28/17 1456 8 Observed: 05/28/2017 Status: COMPLETED Source: [place] 1:11 PM [facility] REPOSITORY HNO ID: [id number] Author: VARGHESE Archibald (Pa) Service: (none) Author Type: Physician Circuit Tester Type: ED Triage Notes Filed: 05/28/2017 1:18 PM Note Text: ED INTAKE NOTE Patient Name: Oliver Cunningham Service Date: 05/28/17 BRIEF HPI: A 57 y/o male presents to the ED with c/o constipation and generalized abdominal pain, with last BM 3 days ago. Last passed flatus yesterday. Pt reports ongoing constipation for the past 1.5 years. Taking Miralax and Linzess. Endorses nausea. Denies fevers, chills, chest pain, shortness of breath, vomiting, melena, hematochezia, dysuria, hematuria. BRIEF EXAM: Awake and Alert RRR CTAB BSNA x 4. Abdomen appears mildly distended and firm to palpation. Pt endorses diffuse abdominal tenderness, though no rigidity, guarding or rebound tenderness elicited. INTAKE WORKUP: EKG CBC CMP SIGNATURE: Denise Ma PA-C ED NOTE Observed: 05/28/2017 Status: COMPLETED Source: [place] 12:58 PM [facility] REPOSITORY HNO ID: [id number] Author: Jamia Daly (Rn) KIMBERLEE Millard Service: Emergency Medicine Author Type: Registered Nurse Type: ED Notes Filed: 05/28/2017 12:59 PM Note Text: Pt. comes to ED for abd pain and constipation onset 3 days ago . Pt states last BM 3 days ago, pt denies flatulence at this time. Pt states pressure from abd causing CP. Pt denies hx of GERD. Pt. is alert and oriented X 3. NAD, ABC's intact, respirations even and unlabored. Skin acyanotic, warm and dry. Pain 9/10. Denies SOB, numbness/tingling, weak/dizzy, fever/chills, n/v/d. ID, allergy band on. ED NOTE Observed: 05/27/2017 Status: COMPLETED Source: [place] 11:58 AM [facility] REPOSITORY HNO ID: [id number] Author: Cecy (Rn) KIMBERLEE Abel Service: (none) Author Type: Registered Nurse Type: ED Notes Filed: 05/27/2017 12:00 PM Note Text: Called for triage and not answering. MRCP ABDOMEN WITHOUT Observed: 05/25/2017 Status: F Source: [place] CONTRAST 7:30 AM [facility] REPOSITORY [facility] Imaging Services [address] [place] [address] MRCP Abdomen without Contrast MR#: [id number] Acct: [id number] Name: OLIVER CUNNINGHAM Rep #: [id number] : 1960 M 57 From: Jefferson Harvey MD PCP: Kate Benavidez MD Status: REG CLI Study: MRCP Abdomen without Contrast Date of Exam: 05/25/17 Exam# [id number] Ordering Dr: Kate Benavidez MD STUDY: MR CHOLANGIOPANCREATOGRAPHY (MRCP) REASON FOR EXAM: Male, 57 years old. Chronic RLQ pain, Pt co that hernia mesh pulled loose. TECHNIQUE: Standard MRCP technique was utilized. COMPARISON: CT Abdomen/Pelvis Jan 21 2017 5:59pm FINDINGS: There are calcifications of the abdominal aorta. This is consistent for atherosclerotic disease. There is no abdominal aortic aneurysm. Degenerative findings of the lumbar spine. 20 mm T2 hyperintensity in the left kidney. Gall Bladder: Gall bladder is surgically absent. Cystic duct: Normal with no demonstrated fixed filling defect. Intrahepatic ducts: Normal visualized intrahepatic ducts with no demonstrated fixed filling defect, dilation or stricture. Common hepatic duct: Normal with no demonstrated fixed filling defect, dilation or stricture. Common bile duct: Normal with no demonstrated fixed filling defect, dilation or stricture. Common bile duct diameter is 4.1 mm. Pancreatic duct: Normal with no demonstrated fixed filling defect, dilation or stricture. MRI/MRCP Abdomen without Contrast IMPRESSION: Simple left renal cyst. Cholecystectomy. Electronically Signed: Jefferson Harvey MD at 23:38 EST , Service support , CC: Kate Benavidez MD Nutrition Services Worker: Signed PELVIS (ROUTINE) Observed: 05/25/2017 Status: F Source: [place] 7:30 AM [facility] REPOSITORY [facility] Imaging Services [address] [place] [address] Pelvis (Routine) MR#: [id number] Acct: [id number] Name: OLIVER CUNNINGHAM Rep #: [id number] : 1960 M 57 From: Oneida Peter MD PCP: Kate Benavidez MD Status: REG CLI Study: Pelvis (Routine) Date of Exam: 05/25/17 Exam# [id number] Ordering Dr: Kate Benavidez MD STUDY: MR PELVIS WITHOUT CONTRAST REASON FOR EXAM: Male, 57 years old. Chronic right lower quadrant pain. TECHNIQUE: Standardized fat and water weighted pulse sequences were obtained in all 3 orthogonal planes. COMPARISON: CT dated January 21, 2017 FINDINGS: There is bladder wall thickening present. There is a left renal cyst visualized. Normal visualized small intestine. Normal visualized colon. There is no pelvic mass lesion or lymphadenopathy. Normal visualized pelvic arteries. There is degenerative disc disease at L5-S1 associated with a posterior disc osteophyte causing bilateral narrowing of the neuroforamina. There are postsurgical changes within the inguinal region bilaterally. There is persistent fluid within the inguinal region bilaterally, left greater than right. MRI/Pelvis (Routine) IMPRESSION: Postsurgical changes within the inguinal region associated with a small amount of fluid, left greater than right. Bladder wall thickening which may be partially secondary to its incomplete distended state however this may be secondary to a history of cystitis. L5-S1 posterior disc osteophyte causing bilateral neuroforaminal stenosis. Electronically Signed: Oneida Peter MD at 20:03 EST Tel , Service support , CC: Kate Benavidez MD Nutrition Services Worker: Signed CTA ABD AORTA + Observed: 05/23/2017 Status: F Source: [facility] 3:22 PM SYSTEM REPOSITORY Patient Name: OLIVER CUNNINGHAM CT Exam Date/Time 05/23/2017 14:40:57 EST Exam CTA Abd Aorta + Iliofemoral Ordering Physician ERNESTO JONES DANIEL M Accession Number [id number] CPT4 Codes 45455 (), Q9967 () Reason For Exam Bilateral groin pain, claudication Report HISTORY: Abdominal pain bilateral claudication CT scan was performed by bolus contrast-enhanced scans of the abdomen and pelvis. CT angiographic studies of the abdominal aorta, ileo femoral, and major visceral vessels with bilateral runoff was performed following the acquisition of high resolution helical CT data during the bolus contrast infusion. The data set was then post processed by myself on the [employer] workstation, with reconstructed 3D volume rendered and MPR CT angiographic renderings of the vessels. There is no significant renal artery stenosis on either side. There is no significant stenosis of the celiac origin or superior mesenteric or inferior mesenteric origin. There are incidentally noted to be small left renal cyst, simple appearing. Degenerated disc at L5-S1. Prior cholecystectomy. Hyperinflation lungs suggesting COPD. Circumaortic left renal vein IMPRESSION: 1. Moderate aortoiliac calcific atherosclerosis without significant stenosis identified (except for greater than 50% stenosis in the proximal internal iliac arteries bilaterally right greater than left) 2. No significant femoral popliteal stenosis in either leg. Three-vessel runoff seen in the upper calves bilaterally with poor opacification past this point making evaluation of lower calves and feet inadequate 3. Degenerative disc disease at the L5-S1 level with disc space narrowing with no definite significant osseous central spinal stenosis identified. Probable COPD. Report Dictated on Final Dictating Physician: MD NICOLE WILLIAM Signed Date and Time: 05/23/2017 3:37 pm Signed by: MD NICOLE WILLIAM Transcribed Date and Time: 05/23/2017 3:38 UA Collected: 05/17/2017 Status: F Source: [facility] 1:10 PM [facility] REPOSITORY TYPE CODE TESTS RESULT OUT OF REFERENCE UNITS RANGE LAB SPCUA(LOIN C) UA Specimen Type Clean Catch LAB CLRUA(LOIN C) UA Color Yellow LAB APPUA(LOIN C) UA Appear Clear LAB SGUA(LOINC ) UA Spec Grav 1.015 LAB GLUA(LOINC Negative mg/dL ) UA Glucose Negative LAB BILUA(LOIN Neg-Trace C) UA Bili Negative LAB KETUA(LOIN Negative mg/dL C) UA Ketones Negative LAB BLDUA(LOIN Neg-Trace C) UA Blood Negative LAB PHUA(LOINC 5.0 - 8.0 ) UA pH 6.0 LAB PROUA(LOIN Negative mg/dL C) UA Protein Negative LAB UROUA(LOIN E.U./dL C) UA Urobilinogen 0.2 LAB NITUA(LOIN Negative C) UA Nitrite Negative LAB LEUUA(LOIN Negative C) UA Leuk Est Negative Performed By: #### UA #### [place] [address] CBC Collected: 05/17/2017 Status: F Source: [facility] 1:09 PM [facility] REPOSITORY TYPE CODE TESTS RESULT OUT OF REFERENCE UNITS RANGE LAB WBC(LOINC) 4.50-10.80 10 3/mcL WBC 5.60 LAB RBCCT(LOINC 4.50-6.00 10 6/mcL ) RBC 4.70 LAB HGB(LOINC) 13.0-17.5 G/dL Hgb 15.6 LAB HCT(LOINC) 40.0-52.0 % Hct 45.2 LAB MCV(LOINC) 81.0-100.0 fL MCV 96.1 LAB MCH(LOINC) 27.0-33.0 pg High MCH 33.2 LAB MCHC(LOINC) 32.0-36.0 G/dL MCHC 34.5 LAB RDW(LOINC) 11.5-15.5 % RDW 13.7 LAB PLT(LOINC) 150-450 10 3/mcL Platelet 239 LAB MPV(LOINC) 6.4-10.5 fL MPV 6.6 Performed By: #### CBC, ADIFF, ANEU, BMP, LIP, GFR #### [address] [address] .AUTO DIFF Collected: 05/17/2017 Status: F Source: [facility] 1:09 [facility] REPOSITORY TYPE CODE TESTS RESULT OUT OF REFERENCE UNITS RANGE LAB PORSHA(LOINC) 50.0-75.0 % Neutrophil % 65.3 LAB LYM(LOINC) 20.0-40.0 % Lymphocyte % 24.7 LAB MON(LOINC) 2.0-13.0 % Monocyte % 8.8 LAB EO(LOINC) 0.0-6.0 % Eosinophil % 0.6 LAB BAS(LOINC) 0.0-2.5 % Basophil % 0.6 LAB ABLYM(LOIN 0.90-4.32 10 3/mcL C) Lymphocyte, 1.40 Absolute LAB NADIR(LOINC 0.09-1.40 10 3/mcL ) Monocyte, 0.50 Absolute LAB AEOS(LOINC 0.00-0.65 10 3/mcL ) Eosinophil, 0.00 Absolute LAB ABAS(LOINC 0.00-0.27 10 3/mcL ) Basophil, 0.00 Absolute Performed By: #### CBC, ADIFF, ANEU, BMP, LIP, GFR #### [address] [address] .NEUABS Collected: 05/17/2017 Status: F Source: [facility] 1:09 [facility] REPOSITORY TYPE CODE TESTS RESULT OUT OF REFERENCE UNITS RANGE LAB ANEU(LOINC) 2.25-8.10 10 3/mcL Neutrophil, 3.70 Absolute Performed By: #### CBC, ADIFF, ANEU, BMP, LIP, GFR #### [place] [address] BMP Collected: 05/17/2017 Status: F Source: [facility] 1:09 [facility] REPOSITORY TYPE CODE TESTS RESULT OUT OF REFERENCE UNITS RANGE LAB GLU(LOINC) 70-110 mg/dL Glucose High Level 118 LAB NA(LOINC) 136-145 mEq/L Sodium Level 137 LAB K(LOINC) 3.5-5.0 mEq/L Potassium Level 4.0 LAB CL(LOINC) 98-110 mEq/L Chloride 103 LAB CO2(LOINC) 22-32 mEq/L CO2 29 LAB EBAL(LOINC 4.0-15.0 mEq/L ) Electrolyte Balance 5.0 LAB BUN(LOINC) 8.0-22.0 mg/dL Low BUN 5.0 LAB CRE(LOINC) 0.60-1.40 mg/dL Creatinine Lvl (s) 0.69 LAB BC(LOINC) 10.0-22.0 ratio Low BUN/Creatinine 7.2 Ratio LAB CA(LOINC) 8.4-10.1 mg/dL Calcium Lvl 9.0 Performed By: #### CBC, ADIFF, ANEU, BMP, LIP, GFR #### [place] [address] LIP Collected: 05/17/2017 Status: F Source: [facility] 1:09 [facility] REPOSITORY TYPE CODE TESTS RESULT OUT OF REFERENCE UNITS RANGE LAB LIP(LOINC) 73-393 U/L Lipase Level 137 Performed By: #### CBC, ADIFF, ANEU, BMP, LIP, GFR #### [place] [address] .GFR Collected: 05/17/2017 Status: F Source: [facility] 1:09 [facility] REPOSITORY TYPE CODE TESTS RESULT OUT OF REFERENCE UNITS RANGE LAB GFRAA(LOINC ml/min/1.73 ) sqm GFR >60 [place] Result Comment: GFR Population mean for , Non- Americans Ages 20-29 = 116 mL/min/1.73 sq.m. Ages 30-39 = 107 mL/min/1.73 sq.m. Ages 40-49 = 99 mL/min/1.73 sq.m. Ages 50-59 = 93 mL/min/1.73 sq.m. Ages 60-69 = 85 mL/min/1.73 sq.m. Ages 70+ = 75 mL/min/1.73 sq.m. Chronic Kidney Disease: Less than 60 mL/min/1.73 square meters End Stage Renal Disease: Less than 15 mL/min/1.73 square meters LAB GFRNO(LOINC) ml/min/1.73sqm GFR Non- >60 Result Comment: GFR Population mean for , Non- Americans Ages 20-29 = 116 mL/min/1.73 sq.m. Ages 30-39 = 107 mL/min/1.73 sq.m. Ages 40-49 = 99 mL/min/1.73 sq.m. Ages 50-59 = 93 mL/min/1.73 sq.m. Ages 60-69 = 85 mL/min/1.73 sq.m. Ages 70+ = 75 mL/min/1.73 sq.m. Chronic Kidney Disease: Less than 60 mL/min/1.73 square meters End Stage Renal Disease: Less than 15 mL/min/1.73 square meters Performed By: #### CBC, ADIFF, ANEU, BMP, LIP, GFR #### [address] [address] UA COMPLETE Collected: 05/12/2017 Status: F Source: [place] 2:51 PM [facility] REPOSITORY TYPE CODE TESTS RESULT OUT OF REFERENCE UNITS RANGE LAB 23063205(L Yellow OINC) UA Color Normal Yellow LAB 63555529(L Clear OINC) UA Clarity Normal Clear LAB 24745444(L Negative OINC) UA Glucose Normal Negative LAB 82549323(L Negative OINC) UA Bili Normal Negative LAB 94172955(L Negative OINC) UA Ketones Normal Negative LAB 44015442(L 1.003-1.030 OINC) UA Spec High Grav 1.039 LAB 08204667(L 4.6-8.0 OINC) UA pH Normal 6.0 LAB 11444315(L Negative OINC) UA Protein Normal Negative LAB 31537847(L mg/dL OINC) UA Normal Urobilinogen Negative LAB 04655590(L Negative OINC) UA Nitrite Normal Negative LAB 06009684(L Negative OINC) UA Blood Normal Negative LAB 02287536(L Negative OINC) UA Leuk Est Normal Negative LAB 04055981(L 0-3 /HPF OINC) UA RBC Normal 0-3 LAB 00111545(L 0-5 /HPF OINC) UA WBC Normal 0-5 Performed By: #### [id number] #### TOY Urinalysis Automated Subsection [address] [place] [address] CT ABDOMEN/PELVIS W/ Observed: 05/12/2017 Status: F Source: [place] CONTRAST 2:05 PM [facility] REPOSITORY Exam Date/Time: 05/12/2017 14:27 EST Reason for Exam: Pain Report CT ABDOMEN/PELVIS W/ CONTRAST CLINICAL STATEMENT: Abdominal pain 3 days duration. Dysuria. COMPARISON: None. TECHNIQUE: CT examination of the abdomen and pelvis following the administration of 100 mL Omnipaque 300 intravenous contrast. Imaging was performed at portal venous, and delayed phases.?Coronal and sagittal reformations were performed. Dose reduction techniques were achieved by using automated exposure control and/or adjustment of mA and/or kV according to patient size and/or use of iterative reconstruction technique. FINDINGS: Included lung bases are clear. The heart is nonenlarged. The liver size, configuration, internal density, and enhancement are normal. The gallbladder is surgically absent. The pancreas and spleen are normal. The adrenal glands are unremarkable. Kidneys show simultaneous enhancement, with complete cortical enhancement other than a smoothly marginated 19 mm cyst at the posterior lower pole of the left kidney. Abdominal aorta and vena cava are of normal caliber. There is relatively prominent atherosclerosis of the distal aorta and common iliac arteries. Stomach and duodenum are appropriately configured. Small bowel loops are of normal caliber. There is normal right lower quadrant ileocecal junction. The appendix is seen extending superiorly behind the cecum. Remaining portions of the colon are appropriately configured. No inflammatory changes are noted. In the pelvis the prostate, rectum, seminal vesicles are normal. There is suggestion of some mild bladder wall thickening. Bony structures showed intact bony pelvis and lumbar spine. I do see that there is relatively prominent degenerative narrowing of the lumbosacral interspace with endplate eburnation and degenerative spurring. IMPRESSION: 1. No findings of acute intra-abdominal or pelvic pathology such as bowel or urinary tract obstruction, peritoneal free air, or free fluid. No urinary calculus. Appendix is normal. 2. Thick wall urinary bladder should be closely correlated with results of urinalysis, and in the setting of dysuria suggests urinary tract infection. Exam Date/Time: 05/12/2017 14:27 EST Report 3. Advanced degeneration of the lumbosacral interspace and endplates. 4. Heavy atherosclerosis distal abdominal aorta and common iliac arteries for a patient of this age group. FINAL REPORT Dictated: 05/12/2017 4:01 pm Bob Ross DO Signed (Electronic Signature): 05/12/2017 4:01 pm Signed by: Bob Ross DO Technologist: SMILEY CBC W/ AUTO DIFF Collected: 05/12/2017 Status: F Source: [place] 12:48 PM [facility] REPOSITORY TYPE CODE TESTS RESULT OUT OF RANGE REFERENCE UNITS LAB [id number](L 3.6-11.0 E3/mcL OINC) Normal WBC 8.2 LAB 54060552(L 3.90-6.10 E6/mcL OINC) Normal RBC 4.70 LAB 69307436(L 13.5-18.0 G/DL OINC) Normal Hgb 15.2 LAB 09961949(L 42.0-52.0 % OINC) Normal Hct 44.8 LAB 60508238(L 11.5-14.5 % OINC) Normal RDW 13.9 LAB 26153901(L 27.0-31.0 pg OINC) High MCH 32.4 LAB 71431957(L 33.0-37.0 G/DL OINC) Normal MCHC 34.0 LAB 32764221(L 78.0-100.0 fL OINC) Normal MCV 95.3 LAB 90115793(L 7.4-11.0 fL OINC) Low MPV 6.8 LAB 59657056(L 130-400 E3/mcL OINC) Normal Platelet 258 Performed By: #### [id number] #### [facility]Y [employer] [address] [place] [address] AUTO DIFF Collected: 05/12/2017 Status: F Source: [place] 12:48 PM [facility] REPOSITORY Order Comment: Order Added by Discern Expert. TYPE CODE TESTS RESULT OUT OF RANGE REFERENCE UNITS LAB 43275817(L 37.0-75.0 % OINC) Normal Neutro Auto 71.0 LAB 78873247(L 20.0-55.0 % OINC) Normal Lymph Auto 20.2 LAB 60347399(L 0.0-10.0 % OINC) Normal Mellette Auto 7.5 LAB 30008379(L 0.0-11.0 % OINC) Normal Eos Auto 0.4 LAB 53268615(L 0.0-2.0 % OINC) Normal Basophil Auto 0.9 LAB 78684656(L 1.4-6.5 E3/mcL OINC) Normal Neutro 5.8 Absolute LAB 70594460(L 1.2-3.4 E3/mcL OINC) Normal Lymph Absolute 1.7 LAB 28155042(L 0.0-0.7 E3/mcL OINC) Normal Mellette Absolute 0.6 LAB 97431131(L 0.0-0.7 E3/mcL OINC) Normal Eos Absolute 0.0 LAB 42157360(L 0.0-0.2 E3/mcL OINC) Normal Basophil 0.1 Absolute Performed By: #### [id number] #### [employer]Y [employer] [address] [place] [address] D-DIMER Collected: 05/12/2017 Status: F Source: [place] 12:48 PM [facility] REPOSITORY TYPE CODE TESTS RESULT OUT OF RANGE REFERENCE UNITS LAB 59998288(LO <=0.50 mg/L FEU INC) Normal D-Dimer <0.22 Result Comment: Normal D Dimer level indicates no Deep Vein Thrombosis (DVT) or Pulmonary Embolism (PE). Elevated D Dimer level indicates additional studies and clinical assessments are indicated to conclude diagnosis of Deep Vein Thromobsis (DVT) or Pulmonary Embolism (PE). Performed By: #### [id number] #### TOY Hematology Automated Subsection [address] [place] [address] TROPONIN-I Collected: 05/12/2017 Status: F Source: [place] 12:48 PM [facility] REPOSITORY TYPE CODE TESTS RESULT OUT OF RANGE REFERENCE UNITS LAB 03403034(LO .00-.03 ng/mL INC) Normal <.01 Troponin-I Performed By: #### [id number] #### TOY [employer] [address] [place], [place] [id number] BMP Collected: 05/12/2017 Status: F Source: [place] 12:48 PM [facility] REPOSITORY TYPE CODE TESTS RESULT OUT OF RANGE REFERENCE UNITS LAB 40143758(L 70-99 mg/dL OINC) High Glucose Lvl 129 LAB 35380365(L 8.4-10.2 mg/dL OINC) Calcium Normal Lvl 8.9 LAB 80493572(L 136-145 mEq/L OINC) Low Sodium Lvl 135 LAB 51641411(L 3.5-5.1 mEq/L OINC) Normal Potassium Lvl 3.8 LAB 83009805(L 98-107 mEq/L OINC) Chloride Normal 102 LAB 69820440(L 24.0-30.0 mEq/L OINC) CO2 Normal 24.8 LAB 59816621(L 7-18 mg/dL OINC) Low BUN 5 LAB 3613467(LO 0.6-1.3 mg/dL INC) Normal Creatinine 0.6 LAB 62736347(L 5.4-30.0 ratio OINC) Normal BUN/Creat Ratio 8.3 Performed By: #### [id number] #### TOY [employer] [facility] [address] [place] [id number] HEP FUNC PANEL Collected: 05/12/2017 Status: F Source: [place] 12:48 PM [facility] REPOSITORY TYPE CODE TESTS RESULT OUT OF RANGE REFERENCE UNITS LAB 77690292(L 10-40 Int._Unit/L OINC) Normal ALT 19 LAB 60808439(L 10-42 Int._Unit/L OINC) Normal AST 20 LAB 46468108(L 3.2-5.0 G/DL OINC) Normal Albumin Lvl 4.0 LAB 67910793(L 2.0-4.0 G/DL OINC) Normal Globulin 2.6 LAB 39242259(L 1.1-1.9 ratio OINC) Normal A/G Ratio 1.5 LAB 34277084(L 42-121 Int._Unit/L OINC) Normal Alk Phos 46 LAB 19444001(L .00-.20 mg/dL OINC) Normal Bili Direct <.10 LAB 52689286(L OINC) Normal Bili Indirect >0.7 Result Comment: No established ranges available for the Indirect Biliruben. LAB 66127720(LOINC) 0.2-1.0 mg/dL Normal Bili Total 0.8 LAB 71069621(LOINC) 6.4-8.3 G/DL Normal Total Protein 6.6 Performed By: #### [id number] #### TOY [employer] [address] [place] [address] EGFR Collected: 05/12/2017 Status: F Source: [place] 12:48 PM [facility] REPOSITORY Order Comment: Order added by Discern Expert. TYPE CODE TESTS RESULT OUT OF RANGE REFERENCE UNITS LAB 53077545(LO mL/min/1.73 INC) m2 Normal eGFR >60 LAB 65674754(LO mL/min/1.73 INC) m2 Normal eGFR AA >60 Performed By: #### [id number] #### TOY [employer] [address] [id number] LIPASE LEVEL Collected: 05/12/2017 Status: F Source: [place] 12:48 PM [facility] REPOSITORY TYPE CODE TESTS RESULT OUT OF RANGE REFERENCE UNITS LAB 74950765(LO 8-57 U/L INC) Normal Lipase Lvl 25 Performed By: #### [id number] #### TOY [employer] [address] [place] [address] CKMB Collected: 05/12/2017 Status: F Source: [place] 12:48 [facility] TYPE CODE TESTS RESULT OUT OF RANGE REFERENCE UNITS LAB 79117357(LO 0.0-5.0 ng/mL INC) Normal CK MB 2.6 Performed By: #### [id number] #### TOY [employer] [address] [place] [address] XR CHEST AP PORTABLE Observed: 05/12/2017 Status: F Source: [place] 12:46 PM [facility] Exam Date/Time: 05/12/2017 12:54 EST Reason for Exam: Difficulty breathing Report PORTABLE CHEST X-RAY 05/12/2017 COMPARISON: No comparison studies. CLINICAL DATA: Groin pain and chest pain. TECHNIQUE: 2 images. FINDINGS: Normal cardiomediastinal shadows. Clear lungs. No pneumothorax. No free air beneath the hemidiaphragms. Visualized bony thorax intact. IMPRESSION: Negative chest x-rays. FINAL REPORT Dictated: 05/12/2017 1:45 pm Katy Grewal MD Signed (Electronic Signature): 05/12/2017 1:45 pm Signed by: Katy Grewal MD Technologist: , EMERGENCY DEPARTMENT Observed: 05/10/2017 Status: F Source: [place] SUMMARY 1:55 PM [facility] REPOSITORY [facility] Medical Records Department [address] [facility] [place] [address] Emergency Department Summary 05/10/17 0825 MR#: [id number] Acct: [id number] Name: OLIVER CUNNINGHAM Rep #: [id number] : 1960 57 From: Javi Cuellar MD PCP: Kate Benavidez MD Status: DEP ER - ER Visit Summary Date of Service: 05/10/17 Chief Complaint: Cough History of Present Illness: The patient is a 57 M history of anxiety and scleroderma. Also MS. Patient states that he has a cough for a month. He states he was diagnosed with influenza at the [facility] urgent care. States she was initially placed on doxycycline and currently is on Bactrim. He states that in the last 2 days he has been coughing up some flecks of blood. He denies any history of TB. No recent travel, surgery or mobilization. No leg pain or swelling. No history of DVT or PE. No chest pain. Physical Examination: Well-appearing middle-age male. Vital signs are stable and afebrile. Pulse ox 90% on room air no signs of hypoxia. H EENT exam is unremarkable. Neck nontender no JVD no lymphadenopathy. Lungs coarse breath sounds but no rales, rhonchi or wheezing. Equal and symmetrical. No distress. Heart regular rhythm rate about 90-100 no murmur. Abdomen is soft and nontender. Well-healed surgical incision in the right lower quadrant for prior hernia repair. He is moving all 4 extremities. They are neurovascularly intact. No edema. No calf pain or cords. Neurologically is awake and alert. Back exam nontender. Test Results: Chest x-ray two-view shows shows chronic changes consistent with COPD but no acute abnormality. Normal cardiac silhouette. No pneumothorax. No infiltrate. No mass. Read both by myself the radiologist. I did go over the x- ray with the patient. Emergency Department Course and Treatment: Clinically patient looks good. More than likely has a viral bronchitis. Treatment Plan: No antibiotics at this time. I expressed to him he needs to stop smoking he says he is trying is gone from 3 packs a day to down to a half a pack. Disposition: Discharge Impression: Viral bronchitis OPD Tobacco abuse This note was generated with WiFastation software. It may contain incorrect words, spelling, and punctuation that were not noted in review of the chart prior to signing ED Disposition - Plan for ED Patient: Chief Complaint: Cough Referrals: Care Physician,No Primary [NON-STAFF] - What to do if you have Problems For any increased pain, shortness of breath, bleeding, nausea or vomiting, chest pain, or any unexpected problems, contact your Primary Care Provider. Call [facility] ([phone]) or report to the closest Emergency Room. Call 911 if necessary. 05/10/17 1355 <Electronically signed by Javi Cuellar MD> Date Javi Cuellar MD Cosigner Signature (If Indicated): Date CC: Kate Benavidez MD DISCHARGE INSTRUCTION Observed: 05/10/2017 Status: Source: [place] 1:55 PM [facility] REPOSITORY [facility] Medical Records Department [address] [place] [address] Discharge Instruction 05/10/17 0947 MR#: [id number] Acct: [id number] Name: OLIVER CUNNINGHAM Abdulkadir Rep #: [id number] : 1960 57 From: Javi Cuellar MD PCP: Kate Benavidez MD Status: [facility] ED Disposition - Plan for ED Patient: Disposition: Home or Assisted Living Chief Complaint: Cough Instructions: ED COPD Flare Referrals: Care Physician,No Primary [NON-STAFF] - 3-5 Days if not improving Additional Instructions: Stop smoking. [id number] cough suppressant. At this time he did not need an antibiotic. You do have COPD but there are no acute signs of pneumonia and there are no obvious lung masses on your chest x-ray. If you continue to cough up blood you will need further evaluation and possible a scope of your lungs called bronchoscopy. What to do if you have Problems For any increased pain, shortness of breath, bleeding, nausea or vomiting, chest pain, or any unexpected problems, contact your Primary Care Provider. Call [facility] ([phone]) or report to the closest Emergency Room. Call 911 if necessary. 05/10/17 1355 <Electronically signed by Javi Cuellar MD> Date Javi Cuellar MD Cosigner Signature (If Indicated): Date CC: Kate Benavidez MD CHEST PA AND LATERAL Observed: 05/10/2017 Status: F Source: [place] 8:24 AM [facility] REPOSITORY [facility] Imaging Services [address] [place] [address] [place] [address] Chest PA and Lateral MR#: [id number] Acct: [id number] Name: OLIVER CUNNINGHAM Rep #: [id number] : 1960 M 57 From: Neftali Hernandez MD PCP: Kate Benavidez MD Status: REG ER Study: Chest PA and Lateral Date of Exam: 05/10/17 Exam# [id number] Ordering Dr: Javi Cuellar MD STUDY: X-RAY CHEST REASON FOR EXAM: Male, 57 years old. Hemoptysis. TECHNIQUE: PA and lateral views of the chest. COMPARISON: Comparison is made with prior study dated November 22, 2016. FINDINGS: Hyperinflation. Decreased bronchovascular markings in both lungs suggestive of emphysematous changes. No acute abnormality is seen. There is no demonstrated pleural abnormality. Normal size heart. Normal mediastinum and zachary. Normal visualized pulmonary arteries. Normal visualized aortic arch and descending thoracic aorta. There are mild degenerative changes of the visualized thoracic spine. Normal visualized ribs, clavicles, and shoulders. There is no demonstrated abnormality of the visualized soft tissue structures of the upper abdomen. RAD/Chest PA and Lateral IMPRESSION: Hyperinflation and emphysematous changes. No acute abnormality is seen. Electronically Signed: Neftali Hernandez MD at 9:35 EST Tel [phone], Service support , CC: Javi Cuellar MD; Kate Benavidez MD Nutrition Services Worker: Signed CT ABDOMEN/PELVIS W/O Observed: 05/08/2017 Status: F Source: [place] [facility] 2:06 PM [facility] ORIGINAL CT ABDOMEN/PELVIS W/O CONTRAST CLINICAL STATEMENT: BILATERAL flank pain COMPARISON: 04/03/2017 FINDINGS:The gallbladder is surgically absent. The visualized portion of the liver, spleen and pancreas have a normal noncontrast appearance. The adrenal glands are normal in configuration. There is red emonstration of a left renal cyst. A punctate right nonobstructing renal calculus is seen. No ureteral or bladder calculi identified. No hydronephrosis is seen. Calcified plaque is seen within the aorta which is normal in caliber. No retroperitoneal adenopathy is identified. There is redemonstration of bilateral inguinal hernia repairs. There is no evidence of a bowel obstruction. The appendix is not definitely visualized. However, no inflammatory changes are seen within the right lower quadrant to suggest an acute appendicitis. Degenerative changes are seen within the spine. No suspicious osseous lesion is identified. IMPRESSION:No acute intra-abdominal or pelvic process is identified. No obstructing calculi are seen. Punctate right renal calculus. This exam was performed according to our departmental dose optimization program, and includes the following measures where applicable: automated exposure control, adjustment of the mAs and/or kVp accord ing to patient size and/or exam, and an iterative reconstruction algorithm. Interpreted By: Becca Lynn MD Preliminary Report By: Becca Lynn MD Electronically Signed By: Becca Lynn MD Dictated Date: 05/08/2017 2:13:33 PM Prelim Date: 05/08/2017 2:13:33 PM Sign Date: 05/08/2017 2:20:23 PM UA Collected: 05/08/2017 Status: F Source: [place] 1:38 PM [facility] REPOSITORY TYPE CODE TESTS RESULT OUT OF REFERENCE UNITS RANGE LAB SPCUA(LOIN C) UA Specimen Type Clean Catch LAB CLRUA(LOIN C) UA Color YELLOW LAB APPUA(LOIN C) UA Appear CLEAR LAB SGUA(LOINC ) UA Spec Grav 1.015 LAB GLUA(LOINC mg/dL ) UA Glucose NEGATIVE LAB BILUA(LOIN C) UA Bili NEGATIVE LAB KETUA(LOIN mg/dL C) UA Ketones TRACE LAB BLDUA(LOIN C) UA Blood NEGATIVE LAB PHUA(LOINC ) UA pH 6.5 LAB PROUA(LOIN mg/dL C) UA Protein NEGATIVE LAB UROUA(LOIN E.U./dL C) UA Urobilinogen 0.2 LAB NITUA(LOIN C) UA Nitrite NEGATIVE LAB LEUUA(LOIN C) UA Leuk Est NEGATIVE Performed By: #### UA, UAMICAO #### [place] [address] [place] [address] .URINALYSIS MICROSCOPIC Collected: 05/08/2017 Status: F Source: [facility] 1:38 [facility] REPOSITORY TYPE CODE TESTS RESULT OUT OF REFERENCE UNITS RANGE LAB WBCUA(LOIN None Seen /hpf C) UA WBC None Seen LAB RBCUA(LOIN None Seen /hpf C) UA RBC None Seen LAB EPIUA(LOIN None Seen /hpf C) UA Squam Epithelial None Seen Performed By: #### UA, UAMICAO #### [place] [address] CBC Collected: 05/08/2017 Status: F Source: [facility] 1:38 [facility] REPOSITORY TYPE CODE TESTS RESULT OUT OF REFERENCE UNITS RANGE LAB WBC(LOINC) 4.60-10.80 10 3/mcL WBC 8.80 LAB RBCCT(LOINC 4.04-6.13 10 6/mcL ) RBC 4.86 LAB HGB(LOINC) 14.0-18.0 G/dL Hgb 15.3 LAB HCT(LOINC) 42.0-52.0 % Hct 45.3 LAB MCV(LOINC) 80.0-94.0 fL MCV 93.1 LAB MCH(LOINC) 27.0-31.2 pg High MCH 31.4 LAB MCHC(LOINC) 31.8-35.4 G/dL MCHC 33.7 LAB RDW(LOINC) 11.5-14.5 % RDW 13.0 LAB PLT(LOINC) 130-400 10 3/mcL Platelet 228 LAB MPV(LOINC) 7.4-10.4 fL Low MPV 6.5 Performed By: #### CBC, ADIFF, ANEU, BMP, GFR #### [address] [address] .AUTO DIFF Collected: 05/08/2017 Status: F Source: [facility] 1:38 PM [facility] REPOSITORY TYPE CODE TESTS RESULT OUT OF REFERENCE UNITS RANGE LAB PORSHA(LOINC) 37.0-80.0 % Neutrophil % 70.5 LAB LYM(LOINC) 10.0-50.0 % Lymphocyte % 21.1 LAB MON(LOINC) 1.7-13.0 % Monocyte % 7.8 LAB EO(LOINC) 0.0-7.0 % Eosinophil % 0.2 LAB BAS(LOINC) 0.0-2.5 % Basophil % 0.4 LAB ABLYM(LOIN 0.77-3.85 10 3/mcL C) Lymphocyte, 1.90 Absolute LAB NADIR(LOINC 0.15-1.00 10 3/mcL ) Monocyte, 0.70 Absolute LAB AEOS(LOINC 0.00-0.40 10 3/mcL ) Eosinophil, 0.00 Absolute LAB ABAS(LOINC 0.00-0.19 10 3/mcL ) Basophil, 0.00 Absolute Performed By: #### CBC, ADIFF, ANEU, BMP, GFR #### [address] [address] .NEUABS Collected: 05/08/2017 Status: F Source: [facility] 1:38 PM [facility] REPOSITORY TYPE CODE TESTS RESULT OUT OF REFERENCE UNITS RANGE LAB ANEU(LOINC) 2.85-6.16 10 3/mcL High Neutrophil, 6.20 Absolute Performed By: #### CBC, ADIFF, ANEU, BMP, GFR #### [address] [address] BMP Collected: 05/08/2017 Status: F Source: [facility] 1:38 PM [facility] REPOSITORY TYPE CODE TESTS RESULT OUT OF REFERENCE UNITS RANGE LAB 1547-9 70-105 mg/dL GLUCOSE High 120 LAB NA(LOINC) 136-146 mEq/L Low Sodium Level 133 LAB K(LOINC) 3.5-5.1 mEq/L Potassium Level 3.6 LAB CL(LOINC) 98-107 mEq/L Chloride 98 LAB CO2(LOINC) 22-29 mEq/L CO2 24 LAB EBAL(LOINC mEq/L ) Electrolyte Balance 11.0 LAB BUN(LOINC) 7.0-18.0 mg/dL Low BUN 4.5 LAB CRE(LOINC) 0.6-1.2 mg/dL Creatinine Lvl (s) 0.7 LAB BC(LOINC) 7-27 ratio Low BUN/Creatinine 6 Ratio LAB CA(LOINC) 8.4-10.2 mg/dL Calcium Lvl 8.8 Performed By: #### CBC, ADIFF, ANEU, BMP, GFR #### [place] [id number] .GFR Collected: 05/08/2017 Status: F Source: [facility] 1:38 [facility]IT[facility] TYPE CODE TESTS RESULT OUT OF REFERENCE UNITS RANGE LAB GFRAA(LOINC ml/min/1.73 ) sqm GFR 146 [place] Result Comment: GFR Population mean for , Non- Americans Ages 20-29 = 116 mL/min/1.73 sq.m. Ages 30-39 = 107 mL/min/1.73 sq.m. Ages 40-49 = 99 mL/min/1.73 sq.m. Ages 50-59 = 93 mL/min/1.73 sq.m. Ages 60-69 = 85 mL/min/1.73 sq.m. Ages 70+ = 75 mL/min/1.73 sq.m. Chronic Kidney Disease: Less than 60 mL/min/1.73 square meters End Stage Renal Disease: Less than 15 mL/min/1.73 square meters LAB GFRNO(LOINC) ml/min/1.73sqm GFR Non- >60 Result Comment: GFR Population mean for , Non- Americans Ages 20-29 = 116 mL/min/1.73 sq.m. Ages 30-39 = 107 mL/min/1.73 sq.m. Ages 40-49 = 99 mL/min/1.73 sq.m. Ages 50-59 = 93 mL/min/1.73 sq.m. Ages 60-69 = 85 mL/min/1.73 sq.m. Ages 70+ = 75 mL/min/1.73 sq.m. Chronic Kidney Disease: Less than 60 mL/min/1.73 square meters End Stage Renal Disease: Less than 15 mL/min/1.73 square meters Performed By: #### CBC, ADIFF, ANEU, BMP, GFR #### [place] [address] [address] UA COMPLETE Collected: 05/06/2017 Status: F Source: [place] 2:04 PM [facility] REPOSITORY TYPE CODE TESTS RESULT OUT OF REFERENCE UNITS RANGE LAB [id number](L Yellow OINC) UA Color Normal Straw LAB 62383246(L Clear OINC) UA Clarity Normal Clear LAB 28020534(L Negative OINC) UA Glucose Normal Negative LAB 44820452(L Negative OINC) UA Bili Normal Negative LAB 85353788(L Negative OINC) UA Ketones Normal Negative LAB 55659793(L 1.003-1.030 OINC) UA Spec Normal Grav 1.004 LAB 78795110(L 4.6-8.0 OINC) UA pH Normal 7.0 LAB 57383026(L Negative OINC) UA Protein Normal Negative LAB 46346399(L mg/dL OINC) UA Normal Urobilinogen Negative LAB 41437489(L Negative OINC) UA Nitrite Normal Negative LAB 07717352(L Negative OINC) UA Blood Normal Negative LAB 06340860(L Negative OINC) UA Leuk Est Normal Negative LAB 70454264(L 0-5 /HPF OINC) UA WBC Normal 0-5 Performed By: #### [id number] #### [place] [address] CBC W/ AUTO DIFF Collected: 05/06/2017 Status: F Source: [place] 1:32 PM [facility] REPOSITORY TYPE CODE TESTS RESULT OUT OF RANGE REFERENCE UNITS LAB [id number](L 3.6-11.0 E3/mcL OINC) Normal WBC 10.4 LAB 20979054(L 3.90-6.10 E6/mcL OINC) Normal RBC 4.42 LAB 47366355(L 13.5-18.0 G/DL OINC) Normal Hgb 14.3 LAB 86669945(L 42.0-52.0 % OINC) Low Hct 41.3 LAB 00594940(L 11.5-14.5 % OINC) Normal RDW 13.3 LAB 61600458(L 27.0-31.0 pg OINC) High MCH 32.4 LAB 62155475(L 33.0-37.0 G/DL OINC) Normal MCHC 34.6 LAB 28464551(L 78.0-100.0 fL OINC) Normal MCV 93.6 LAB 71983957(L 7.4-11.0 fL OINC) Low MPV 6.6 LAB 11308956(L 130-400 E3/mcL OINC) Normal Platelet 238 Performed By: #### [id number] #### TOY [facility] [place] [address] AUTO DIFF Collected: 05/06/2017 Status: F Source: [place] 1:32 PM [facility] REPOSITORY Order Comment: Order Added by Discern Expert. TYPE CODE TESTS RESULT OUT OF RANGE REFERENCE UNITS LAB 35610107(L 37.0-75.0 % OINC) Normal Neutro Auto 66.3 LAB 38072872(L 20.0-55.0 % OINC) Normal Lymph Auto 23.8 LAB 90537028(L 0.0-10.0 % OINC) Normal Mellette Auto 9.3 LAB 97441552(L 0.0-11.0 % OINC) Normal Eos Auto 0.1 LAB 68446922(L 0.0-2.0 % OINC) Normal Basophil Auto 0.5 LAB 13201999(L 1.4-6.5 E3/mcL OINC) High Neutro 6.9 Absolute LAB 52333092(L 1.2-3.4 E3/mcL OINC) Normal Lymph Absolute 2.5 LAB 04933568(L 0.0-0.7 E3/mcL OINC) High Mellette Absolute 1.0 LAB 16958523(L 0.0-0.7 E3/mcL OINC) Normal Eos Absolute 0.0 LAB 16752041(L 0.0-0.2 E3/mcL OINC) Normal Basophil 0.1 Absolute Performed By: #### [id number] #### TOY [facility] [facility] [place] [id number] BMP Collected: 05/06/2017 Status: F Source: [place] 1:32 PM [facility] REPOSITORY TYPE CODE TESTS RESULT OUT OF RANGE REFERENCE UNITS LAB 14106393(L 70-99 mg/dL OINC) High Glucose Lvl 122 LAB 04645624(L 8.4-10.2 mg/dL OINC) Calcium Normal Lvl 8.9 LAB 15901165(L 136-145 mEq/L OINC) Low Sodium Lvl 130 LAB 39476013(L 3.5-5.1 mEq/L OINC) Normal Potassium Lvl 3.5 LAB 81910216(L 98-107 mEq/L OINC) Low Chloride 96 LAB 72722350(L 24.0-30.0 mEq/L OINC) CO2 Normal 25.8 LAB 31422361(L 7-18 mg/dL OINC) BUN Normal 8 LAB 2274261(LO 0.6-1.3 mg/dL INC) Normal Creatinine 0.6 LAB 05664490(L 5.4-30.0 ratio OINC) Normal BUN/Creat Ratio 13.3 Performed By: #### [id number] #### TOY [employer] [facility] [place] [address] EGFR Collected: 05/06/2017 Status: F Source: [place] 1:32 PM [facility] REPOSITORY Order Comment: Order added by Discern Expert. TYPE CODE TESTS RESULT OUT OF RANGE REFERENCE UNITS LAB 41733261(LO mL/min/1.73 INC) m2 Normal eGFR >60 LAB 62969723(LO mL/min/1.73 INC) m2 Normal eGFR AA >60 Performed By: #### [id number] #### TOY [employer] [facility] [place] [id number] PROGRESS Observed: 05/06/2017 Status: COMPLETED Source: [place] 12:54 PM [facility] REPOSITORY HNO ID: [id number] Author: Inocencio Salcedo Service: (none) Author Type: Physician Type: Progress Notes Filed: 05/06/2017 1:04 PM Note Text: Pt self referred w multiple complaints States has been having R groin, RLQ and chest pain for the past 5 years. All of his symptoms started after a cardiac cath where he now feels pain radiating from his RLQ to his chest. States feels like infection in my femoral artery going to my heart. He has had many consultations and has seen many doctors over the years and has had many imaging studies, all of which are normal.. He had R ing hernia repair in the past and has no issues w that and denies any bulging. He has seen colorectal surgery for issues w constipation and has had colonoscopy which was normal. Pt asking me to do something to cut his abdomen to find the pain. states he has fallen at home from the pain and has seen his toes turn black when the pain is severe. PAST MEDICAL HISTORY Diagnosis Date - Black spider bite 10/2007 - Cervical radiculopathy - CHI (closed head injury) 20 years ago. 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 PAST SURGICAL HISTORY Procedure Laterality Date - AMPUTATION FINGER/THUMB 05/29/10 Traumatic, Right middle, ring and distal - BACK SURGERY HX - CHOLECYSTECTOMY HX - COLONOSCOPY 11/20 - COLONOSCOPY 03/2016 - EGD W/O OR W/BRUSH/WASH 06/24/13 EGD - HERNIA REPAIR HX 2013 umbilical - HERNIA REPAIR HX Bilateral 05/2016 - ORTHOPEDICS SURGERY HX - PAST SURGICAL HISTORY OF 1993 lumbar diskectomy - REMOVAL GALLBLADDER 1998 laparoscopic - REMOVE TONSIL AND ADENOI UNDER AGE 13 remote - ROTATOR CUFF REPAIR 05/24/11 Right Shoulder - ROTATOR CUFF REPAIR 07/10/11 Left shoulder - TONSILLECTOMY HX Current Outpatient Prescriptions on File Prior to Visit: doxycycline (VIBRA-TABS) 100 mg tablet Take 1 tablet by mouth twice daily for 10 days. predniSONE (DELTASONE) 20 mg tablet Take 1 tablet by mouth twice daily. Melatonin 5 mg tab Take 50 mg by mouth daily at bedtime. Cholestyramine-Aspartame (CHOLESTYRAMINE LIGHT) 4 gram powder 4grams po tid x 11 days for rapid elimination of MS medication, Aubagio linaclotide (LINZESS) 145 mcg cap Take 1 capsule by mouth once daily. ondansetron orally disintegrating (ZOFRAN ODT) 4 mg disintegrating tablet Take 1 tablet by mouth every 4 hours as needed for Nausea/Vomiting. famotidine (PEPCID) 20 mg tablet Take 1 tablet by mouth twice daily. sertraline (ZOLOFT) 50 mg tablet Take 50 mg by mouth once daily. OREGANO OIL ORAL Take by mouth. 2 capsules daily, 400mg ea diphenhydrAMINE (BENADRYL) 25 mg capsule Take 25 mg by mouth every 6 hours as needed. taking 12 capsules daily lubiprostone (AMITIZA) 8 mcg capsule Take 3 capsules by mouth twice daily with meals. aspirin, enteric coated (ASPIRIN, ENTERIC COATED) 81 mg EC tablet Take 81 mg by mouth once daily. DOCOSAHEXANOIC ACID/EPA (FISH OIL ORAL) Take 3,000 mg by mouth once daily. potassium chloride ER (K-DUR, KLOR-CON) 20 mEq tablet Take 1 tablet by mouth once daily. docusate sodium (DULCOLAX STOOL SOFTENER, DSS,) 100 mg capsule Take 200 mg by mouth twice daily. magnesium citrate solution Take 296 mL by mouth one time only. CYANOCOBALAMIN, VITAMIN B-12, (VITAMIN B-12 ORAL) Take by mouth. amLODIPine (NORVASC) 10 mg tablet Take 10 mg by mouth once daily. acetaminophen (TYLENOL) 325 mg tablet Take 650 mg by mouth every 6 hours as needed. VITAMIN E, DL,TOCOPHERYL ACET, (VITAMIN E, DL, ACETATE,) 400 unit capsule Take 400 Units by mouth once daily. LACTOBACILLUS COMBINATION NO.8 (ADULT PROBIOTIC ORAL) Take by mouth once daily. nitroglycerin sublingual (NITROQUICK) 0.4 mg SL tablet Dissolve 1 tablet under the tongue as needed. FOR CHEST PAIN. IF NO RELIEF CALL 911 LORAZEPAM 1 mg tablet Take 0.5 mg by mouth twice daily. venlafaxine (EFFEXOR) 25 mg tablet Take 25 mg by mouth once daily. Radiopaque PVC Markers-Barium (SITZMARKS) 24 Markers cap Take 2 capsules by mouth as directed. plecanatide 3 mg tab Take 3 mg by mouth once daily. mirtazapine (REMERON) 30 mg tablet Take 1 tablet by mouth daily at bedtime. tiZANidine HCl (ZANAFLEX) 2 mg capsule 1 tab po 3 times a day for truncal spasm No current facility-administered medications on file prior to visit. There were no vitals taken for this visit. WAD, + tobacco smell abd is soft, Nt and ND No evid for hernia on exam Well healed scar plap fem pulse A/p: RLQ pain of unknown etiology and all workup negative to date Pt wants to see a vascular surgeon and he states that he visited many doctors at [facility] and other ED facilities over the years I cannot decipher his main issue as he states that the pain radiates from his R LQ to his heart and then states he has fall issues and then black toes He is not consistent with his complaints and there is no hernia on exam and CT reviewed w/o evid for pathology We discussed smoking cessation at length Pt states he will go look for other doctors?! Inocencio Salcedo MD CNOV Observed: 05/06/2017 Status: COMPLETED Source: [place] 10:00 AM [facility] REPOSITORY Office Visit (GENSST) OLIVER CUNNINGHAM ([id number]) 1960 M Date Time Provider Department 05/06/17 10:00 AM INOCENCIO SALCEDO During your visit today, we recorded the following information about you: Hiwot Lira RN 05/06/2017 9:59 AM Signed Pt. Here for right groin pain. Inocencio Salcedo MD 05/06/2017 1:04 PM Signed Pt self referred w multiple complaints States has been having R groin, RLQ and chest pain for the past 5 years. All of his symptoms started after a cardiac cath where he now feels pain radiating from his RLQ to his chest. States feels like ANDquot;infectionANDquot; in my femoral artery going to my heart. He has had many consultations and has seen many doctors over the years and has had many imaging studies, all of which are normal.. He had R ing hernia repair in the past and has no issues w that and denies any bulging. He has seen colorectal surgery for issues w constipation and has had colonoscopy which was normal. Pt asking me to ANDquot;do something to cut his abdomen to find the pain.ANDquot; states he has fallen at home from the pain and has seen his toes turn ANDquot;blackANDquot; when the pain is severe. PAST MEDICAL HISTORY Diagnosis Date - Black spider bite 10/2007 - Cervical radiculopathy - CHI (closed head injury) 20 years ago. 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 PAST SURGICAL HISTORY Procedure Laterality Date - AMPUTATION FINGER/THUMB 05/29/10 Traumatic, Right middle, ring and distal - BACK SURGERY HX - CHOLECYSTECTOMY HX - COLONOSCOPY 11/20 - COLONOSCOPY 03/2016 - EGD W/O OR W/BRUSH/WASH 06/24/13 EGD - HERNIA REPAIR HX 2013 umbilical - HERNIA REPAIR HX Bilateral 05/2016 - ORTHOPEDICS SURGERY HX - PAST SURGICAL HISTORY OF 1993 lumbar diskectomy - REMOVAL GALLBLADDER 1998 laparoscopic - REMOVE TONSIL AND ADENOI UNDER AGE 13 remote - ROTATOR CUFF REPAIR 05/24/11 Right Shoulder - ROTATOR CUFF REPAIR 07/10/11 Left shoulder - TONSILLECTOMY HX Current Outpatient Prescriptions on File Prior to Visit: doxycycline (VIBRA-TABS) 100 mg tablet Take 1 tablet by mouth twice daily for 10 days. predniSONE (DELTASONE) 20 mg tablet Take 1 tablet by mouth twice daily. Melatonin 5 mg tab Take 50 mg by mouth daily at bedtime. Cholestyramine-Aspartame (CHOLESTYRAMINE LIGHT) 4 gram powder 4grams po tid x 11 days for rapid elimination of MS medication, Aubagio linaclotide (LINZESS) 145 mcg cap Take 1 capsule by mouth once daily. ondansetron orally disintegrating (ZOFRAN ODT) 4 mg disintegrating tablet Take 1 tablet by mouth every 4 hours as needed for Nausea/Vomiting. famotidine (PEPCID) 20 mg tablet Take 1 tablet by mouth twice daily. sertraline (ZOLOFT) 50 mg tablet Take 50 mg by mouth once daily. OREGANO OIL ORAL Take by mouth. 2 capsules daily, 400mg ea diphenhydrAMINE (BENADRYL) 25 mg capsule Take 25 mg by mouth every 6 hours as needed. taking 12 capsules daily lubiprostone (AMITIZA) 8 mcg capsule Take 3 capsules by mouth twice daily with meals. aspirin, enteric coated (ASPIRIN, ENTERIC COATED) 81 mg EC tablet Take 81 mg by mouth once daily. DOCOSAHEXANOIC ACID/EPA (FISH OIL ORAL) Take 3,000 mg by mouth once daily. potassium chloride ER (K-DUR, KLOR-CON) 20 mEq tablet Take 1 tablet by mouth once daily. docusate sodium (DULCOLAX STOOL SOFTENER, DSS,) 100 mg capsule Take 200 mg by mouth twice daily. magnesium citrate solution Take 296 mL by mouth one time only. CYANOCOBALAMIN, VITAMIN B-12, (VITAMIN B-12 ORAL) Take by mouth. amLODIPine (NORVASC) 10 mg tablet Take 10 mg by mouth once daily. acetaminophen (TYLENOL) 325 mg tablet Take 650 mg by mouth every 6 hours as needed. VITAMIN E, DL,TOCOPHERYL ACET, (VITAMIN E, DL, ACETATE,) 400 unit capsule Take 400 Units by mouth once daily. LACTOBACILLUS COMBINATION NO.8 (ADULT PROBIOTIC ORAL) Take by mouth once daily. nitroglycerin sublingual (NITROQUICK) 0.4 mg SL tablet Dissolve 1 tablet under the tongue as needed. FOR CHEST PAIN. IF NO RELIEF CALL 911 LORAZEPAM 1 mg tablet Take 0.5 mg by mouth twice daily. venlafaxine (EFFEXOR) 25 mg tablet Take 25 mg by mouth once daily. Radiopaque PVC Markers-Barium (SITZMARKS) 24 Markers cap Take 2 capsules by mouth as directed. plecanatide 3 mg tab Take 3 mg by mouth once daily. mirtazapine (REMERON) 30 mg tablet Take 1 tablet by mouth daily at bedtime. tiZANidine HCl (ZANAFLEX) 2 mg capsule 1 tab po 3 times a day for truncal spasm No current facility-administered medications on file prior to visit. There were no vitals taken for this visit. WAD, + tobacco smell abd is soft, Nt and ND No evid for hernia on exam Well healed scar plap fem pulse A/p: RLQ pain of unknown etiology and all workup negative to date Pt wants to see a vascular surgeon and he states that he visited many doctors at [facility] and other ED facilities over the years I cannot decipher his main issue as he states that the pain radiates from his R LQ to his heart and then states he has fall issues and then black toes He is not consistent with his complaints and there is no hernia on exam and CT reviewed w/o evid for pathology We discussed smoking cessation at length Pt states he will go look for other doctors?! Inocencio Salcedo MD Referring Provider: KATE BENAVIDEZ [[id number]] Allergies As of Date: 05/06/2017 Noted Allergy Reaction HYDROCODONE 12/17/2013 8 - GI Upset Comments: Feels like bleeding Inside stomach LYRICA (PREGABALIN) 07/04/2015 5 - Intolerance AUBAGIO (TERIFLUNOMIDE) 04/25/2017 14 - Other: See Comments Comments: Passed out BENTYL (DICYCLOMINE HCL) 01/05/2016 14 - Other: See Comments CELEXA (CITALOPRAM HYDROBROMIDE) 04/28/2012 14 - Other: See Comments Comments: Terrible headaches. COPAXONE (GLATIRAMER ACETATE) 08/24/2013 2 - Rash 9 - Itching CYMBALTA (DULOXETINE) 08/04/2012 14 - Other: See Comments Comments: chest pain, abnormal sensation/feeling in chest ERYTHROMYCIN 02/14/2017 14 - Other: See Comments Comments: turns everything to stone inside my bowels FENOFIBRATE 08/25/2013 5 - Intolerance Comments: chest pain and numbness HCTZ (AMILORIDE-HYDROCHLOROTHIAZI*12/24/2015 14 - Other: See Comments Comments: Tripping, falling, no sense of balance LIPITOR (ATORVASTATIN CALCIUM) 12/17/2013 14 - Other: See Comments Comments: ruq PAIN MIRALAX (POLYETHYLENE GLYCOL 3350)07/10/2016 7 - Swelling 8 - GI Upset Comments: Swollen abdomen - go lightly MOBIC (MELOXICAM) 07/26/2010 9 - Itching MORPHINE 12/01/2013 14 - Other: See Comments Comments: Side pain PENICILLINS 05/18/2010 2 - Rash Comments: high fevers PRAVASTATIN 01/18/2014 14 - Other: See Comments Comments: Muscle soreness PRILOSEC (OMEPRAZOLE MAGNESIUM) 07/14/2013 14 - Other: See Comments Comments: increased abdominal pressure, travels up to the chest area REGLAN (METOCLOPRAMIDE HCL) 10/03/2016 8 - GI Upset Comments: Also gives chest pain WELCHOL (COLESEVELAM HCL) 06/24/2013 14 - Other: See Comments Comments: Abdomen and chest pain XIFAXAN (RIFAXIMIN) 07/04/2015 14 - Other: See Comments Comments: Insomnia Date Reviewed: 05/06/2017 Reviewed by: Hiwot Lira RN - Fully Assessed Reason for Visit: Consult [173] Primary Visit Diagnosis:RLQ abdominal pain [R10.31] Prescriptions as of 05/06/2017 Sig: DOXYCYCLINE HYCLATE 100 MG TA* Take 1 tablet by mouth twice * PREDNISONE 20 MG TABLET Take 1 tablet by mouth twice * MELATONIN 5 MG TABLET Take 50 mg by mouth daily at * CHOLESTYRAMINE-ASPARTAME 4 GR* 4grams po tid x 11 days for * LINACLOTIDE 145 MCG CAPSULE Take 1 capsule by mouth once * ONDANSETRON 4 MG DISINTEGRATI* Take 1 tablet by mouth every * FAMOTIDINE 20 MG TABLET Take 1 tablet by mouth twice * SERTRALINE 50 MG TABLET Take 50 mg by mouth once noy* OREGANO OIL ORAL Take by mouth. 2 capsules da* DIPHENHYDRAMINE 25 MG CAPSULE Take 25 mg by mouth every 6 h* LUBIPROSTONE 8 MCG CAPSULE Take 3 capsules by mouth twic* ASPIRIN 81 MG TABLET,DELAYED * Take 81 mg by mouth once noy* FISH OIL ORAL Take 3,000 mg by mouth once d* POTASSIUM CHLORIDE ER 20 MEQ * Take 1 tablet by mouth once d* DOCUSATE SODIUM 100 MG CAPSULE Take 200 mg by mouth twice da* MAGNESIUM CITRATE ORAL SOLUTI* Take 296 mL by mouth one time* VITAMIN B-12 ORAL Take by mouth. AMLODIPINE 10 MG TABLET Take 10 mg by mouth once noy* ACETAMINOPHEN 325 MG TABLET Take 650 mg by mouth every 6 * VITAMIN E (DL, ACETATE) 400 U* Take 400 Units by mouth once * ADULT PROBIOTIC ORAL Take by mouth once daily. NITROGLYCERIN 0.4 MG SUBLINGU* Dissolve 1 tablet under the t* LORAZEPAM 1 MG TABLET Take 0.5 mg by mouth twice da* VENLAFAXINE 25 MG TABLET Take 25 mg by mouth once noy* RADIOPAQUE PVC MARKERS-BARIUM* Take 2 capsules by mouth as d* PLECANATIDE 3 MG TABLET Take 3 mg by mouth once daily. MIRTAZAPINE 30 MG TABLET Take 1 tablet by mouth daily * TIZANIDINE 2 MG CAPSULE 1 tab po 3 times a day for tr* Problem List As Of Date 05/06/2017 Noted Resolved Hypertension [I10] INVALID FOR* More... Hyperlipidemia [E78.5] INVALID FOR* Diabetes mellitus, type 2 (HCC) [E11.9] INVALID FOR*12/24/2015 Tobacco use disorder [F17.200] INVALID FOR* Neck pain [M54.2] INVALID FOR* DDD (degenerative disc disease), cervical [M50.*INVALID FOR* Tendinitis of shoulder [M75.80] INVALID FOR* Cervical radiculopathy [M54.12] INVALID FOR* Rotator cuff tear [M75.100] INVALID FOR*09/04/2011 Muscular wasting and disuse atrophy, not elsewh*INVALID FOR* Cervicalgia [M54.2] INVALID FOR* Lumbago [M54.5] INVALID FOR* Lumbar spondylosis [M47.816] INVALID FOR* DDD (degenerative disc disease), lumbar [M51.36]INVALID FOR* Special screening for malignant neoplasms, colo*INVALID FOR*12/24/2015 Umbilical hernia without mention of obstruction*INVALID FOR* Myelitis [G04.91] INVALID FOR* Imaging abnormality [R93.8] INVALID FOR* Chronic abdominal pain [R10.9] INVALID FOR* Priority: B More... Chronic neck pain [M54.2, G89.29] INVALID FOR* More... SUMMARY [V999.95] INVALID FOR* Priority: A More... Periumbilical abdominal pain [R10.33] INVALID FOR* MS (multiple sclerosis) (HCC) [G35] INVALID FOR* Recurrent major depression in partial remission*INVALID FOR* Visit Notes: >> Hiwot Lira RN SatMay 06, 2017 9:59 AM Status: Signed Pt. Here for right groin pain. Encounter Status:Closed by INOCENCIO SALCEDO MD on 05/06/17 ED PROV NOTE Observed: 05/05/2017 Status: COMPLETED Source: [place] 7:46 PM CLINIC OTHER CAMPUS REPOSITORY HNO ID: [id number] Author: Juan Manuel Gastelum (Pa) Service: (none) Author Type: Physician Circuit Tester Type: ED Provider Notes Filed: 05/27/2017 6:32 PM Note Text: ED Provider Note Patient Name: Oliver Cunningham SERVICE DATE: 05/05/17 History Patient presents with: Hip Pain HPI Comments: 57-year-old male present to the emergency department with complaints of right groin and hip pain. States that it is worse today than he usually has but states that is a baseline point of his. Denies any new injury. Denies any numbness or tingling. Denies any nausea or vomiting. Denies any urinary symptoms. Denies any other complaints. History provided by: Patient foreign language interpreter used: No PAST MEDICAL HISTORY Diagnosis Date - Black spider bite 10/2007 - Cervical radiculopathy - CHI (closed head injury) 20 years ago. 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 PAST SURGICAL HISTORY Procedure Laterality Date - AMPUTATION FINGER/THUMB 05/29/10 Traumatic, Right middle, ring and distal - BACK SURGERY HX - CHOLECYSTECTOMY HX - COLONOSCOPY 11/20 - COLONOSCOPY 03/2016 - EGD W/O OR W/BRUSH/WASH 06/24/13 EGD - HERNIA REPAIR HX 2013 umbilical - HERNIA REPAIR HX Bilateral 05/2016 - ORTHOPEDICS SURGERY HX - PAST SURGICAL HISTORY OF 1993 lumbar diskectomy - REMOVAL GALLBLADDER 1998 laparoscopic - REMOVE TONSIL AND ADENOI UNDER AGE 13 remote - ROTATOR CUFF REPAIR 05/24/11 Right Shoulder - ROTATOR CUFF REPAIR 07/10/11 Left shoulder - TONSILLECTOMY HX FAMILY HISTORY Problem Relation Age of Onset - Emphysema Mother - Cancer Mother lung/glioblastoma(Brain) - Thyroid Mother - Heart Mother - charcot samir tooth [OTHER] Mother - GBM [OTHER] Mother - Coronary Artery Disease Father MA and CABG - MS [OTHER] Daughter - Lipids Paternal Grandfather - Lipids Brother - Psychiatry Sister - Kidney Disease Daughter - Psychiatry Daughter bipolar disorder Social History Social History Main Topics - Smoking status: Current Every Day Smoker Packs/day: 0.25 Years: 45.00 Types: Cigarettes Start date: 04/08/1977 - Smokeless tobacco: Never Used - Alcohol use No Comment: none - Drug use: No - Sexual activity: Not Currently Partners: Female ALLERGIES Allergen Reactions - Hydrocodone GI Upset Feels like bleeding Inside stomach - Lyrica [Pregabalin] Intolerance - Aubagio [Teriflunom* Other: See Comments Passed out - Bentyl [Dicyclomine* Other: See Comments - Celexa [Citalopram * Other: See Comments Terrible headaches. - Copaxone [Glatirame* Rash, Itching - Cymbalta [Duloxetin* Other: See Comments chest pain, abnormal sensation/feeling in chest - Erythromycin Other: See Comments turns everything to stone inside my bowels - Fenofibrate Intolerance chest pain and numbness - Hctz [Amiloride-Hyd* Other: See Comments Tripping, falling, no sense of balance - Lipitor [Atorvastat* Other: See Comments ruq PAIN - Miralax [Polyethyle* Swelling, GI Upset Swollen abdomen - go lightly - Mobic [Meloxicam] Itching - Morphine Other: See Comments Side pain - Penicillins Rash high fevers - Pravastatin Other: See Comments Muscle soreness - Prilosec [Omeprazol* Other: See Comments increased abdominal pressure, travels up to the chest area - Reglan [Metoclopram* GI Upset Also gives chest pain - Welchol [Colesevela* Other: See Comments Abdomen and chest pain - Xifaxan [Rifaximin] Other: See Comments Insomnia Review of Systems Constitutional: Negative. Negative for chills, fatigue and fever. HENT: Negative. Respiratory: Negative. Negative for cough, shortness of breath and wheezing. Cardiovascular: Negative. Negative for chest pain. Gastrointestinal: Negative. Negative for nausea and vomiting. Genitourinary: Negative. Negative for dysuria, flank pain, frequency and hematuria. Musculoskeletal: Negative for back pain and neck pain. Right hip pain Skin: Negative. Negative for rash and wound. Neurological: Negative. Negative for dizziness, light-headedness and headaches. Psychiatric/Behavioral: Negative. Physical Exam BP 152/81 Pulse 112 Temp (Src) 98.3 (Oral) Resp 20 Ht 5' 11 (1.80m) Wt 167 lb (75.8kg) SpO2 97% BMI 23.30 kg/(m2). Physical Exam Constitutional: He is oriented to person, place, and time. He appears well-developed and well-nourished. No distress. HENT: Head: Normocephalic and atraumatic. Eyes: EOM are normal. Pupils are equal, round, and reactive to light. Neck: Normal range of motion. Cardiovascular: Normal rate, regular rhythm and normal heart sounds. Pulmonary/Chest: Effort normal and breath sounds normal. No respiratory distress. He has no wheezes. Abdominal: Soft. Bowel sounds are normal. He exhibits no distension. There is no tenderness. There is no rebound and no guarding. Musculoskeletal: Normal range of motion. He exhibits no edema, tenderness or deformity. Able to stand and ambulate without assistance. Range of motion the hip is full. Neurovascular exam intact distally. Neurological: He is alert and oriented to person, place, and time. No cranial nerve deficit. Skin: Skin is warm. No rash noted. No erythema. Psychiatric: He has a normal mood and affect. His behavior is normal. Judgment and thought content normal. Nursing note and vitals reviewed. Diagnostic Testing ED Labs Ordered and Reviewed - No data to display Procedures Medical Decision Making / ED Course ED Course Clinically and hemodynamically stable at discharge. 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 Patient is frequently coming into the emergency room with the same complaint without showing any initiative to solve his problems outpatient. I advised the patient that the ER is limited in what we can order and that we would not be repeating blood work and urinalysis over and over again without him following up appropriately. Patient is advised to contact pain management for further evaluation and to return here if patient develops any new or worsening symptoms. No clinical suspicion for acute process or injury. Encounter Diagnosis ICD-10-CM 1. Chronic pain of right hip M25.551 G89.29 Plan The Patient was DISCHARGED: Counseled patient regarding suspected diagnosis AND need for follow-up. Discharged home with verbal and written instructions. They were instructed to return as needed for persistent or worsening symptoms or any new concerns. Condition at time of disposition: stable SIGNATURE: VINNY Hopper (Pa) 05/05/172012 Juan Manuel Gastelum (Pa) 05/27/17 1832 ED NOTE Observed: 05/05/2017 Status: COMPLETED Source: [place] 7:44 PM [facility]INIC OTHER [facility]AMPUS REPOSITORY HNO ID: [id number] Author: Destinee LemonRn) KIMBERLEE Noriega Service: (none) Author Type: Registered Nurse Type: ED Notes Filed: 05/05/2017 7:45 PM Note Text: Pt was fully ambulatory on his right leg and right hip Gait was steady ED NOTE Observed: 05/05/2017 Status: COMPLETED Source: [place] 7:43 PM [facility] OTHER [facility]AMPUS REPOSITORY HNO ID: [id number] Author: Destinee LemonRn) KIMBERLEE Noriega Service: (none) Author Type: Registered Nurse Type: ED Notes Filed: 05/05/2017 7:44 PM Note Text: Pt was discharged home He was very talkative with his discharge Denies needs he was polite and cooperative with his discharge ED NOTE Observed: 05/05/2017 Status: COMPLETED Source: [place] 7:38 PM [facility] OTHER [facility]AMPUS REPOSITORY HNO ID: [id number] Author: Destinee LemonRn) KIMBERLEE Noriega Service: (none) Author Type: Registered Nurse Type: ED Notes Filed: 05/05/2017 7:39 PM Note Text: Juan Manuel KWONG rounds on the pt He is to be discharged home ED NOTE Observed: 05/05/2017 Status: COMPLETED Source: [place] 7:27 PM [facility] OTHER [facility] REPOSITORY HNO ID: [id number] Author: Destinee LemonRnJessica Noriega RN Service: (none) Author Type: Registered Nurse Type: ED Notes Filed: 05/05/2017 7:27 PM Note Text: Pt is ambulatory ED NOTE Observed: 05/05/2017 Status: COMPLETED Source: [place] 7:26 PM [facility] OTHER [facility] REPOSITORY HNO ID: [id number] Author: Destinee LemonRn) KIMBERLEE Noriega Service: (none) Author Type: Registered Nurse Type: ED Notes Filed: 05/05/2017 7:27 PM Note Text: Pt is in a position of comfort ED NOTE Observed: 05/05/2017 Status: COMPLETED Source: [place] 6:44 PM [facility] OTHER [facility]AMP[facility] REPOSITORY HNO ID: [id number] Author: Danni LemonRn) KIMBERLEE Mancia Service: (none) Author Type: Registered Nurse Type: ED Notes Filed: 05/05/2017 6:44 PM Note Text: Right groin and hip pain, got really bad yesterday. Denies fall PROGRESS Observed: 05/05/2017 Status: COMPLETED Source: [place] 3:04 PM [facility] REPOSITORY HNO ID: [id number] Author: Radha Jain Service: (none) Author Type: Physician Circuit Tester Type: Progress Notes Filed: 05/05/2017 3:10 PM Note Text: 05/05/2017 Patient presents with: Cough: cough,chest congestion and wheezing x 1 month Pain, Sinus: sinus pressure(head) x yesterday SUBJECTIVE: This is a 56 year old that is here today for Complaint(s) of cough and chest congestoin x 1 month. + sinus pressure and congestion. Having a sinus BROUSSARD. + chills. Notes SOb/wheezing. Was on tamiflu at the beginning of the month. Denies fever. PMH MS. +everyday smoker. PAST MEDICAL HISTORY Diagnosis Date - Black spider bite 10/2007 - Cervical radiculopathy - CHI (closed head injury) 20 years ago. 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 ALLERGIES Hydrocodone; Lyrica [Pregabalin]; Aubagio [Teriflunomide]; Bentyl [Dicyclomine Hcl]; Celexa [Citalopram Hydrobromide]; Copaxone [Glatiramer Acetate]; Cymbalta [Duloxetine]; Erythromycin; Fenofibrate; Hctz [Amiloride-Hydrochlorothiazide]; Lipitor [Atorvastatin Calcium]; Miralax [Polyethylene Glycol 3350]; Mobic [Meloxicam]; Morphine; Penicillins; Pravastatin; Prilosec [Omeprazole Magnesium]; Reglan [Metoclopramide Hcl]; Welchol [Colesevelam Hcl]; Xifaxan [Rifaximin] MEDICATIONS Current Outpatient Prescriptions: Melatonin 5 mg tab Take 50 mg by mouth daily at bedtime. Cholestyramine-Aspartame (CHOLESTYRAMINE LIGHT) 4 gram powder 4grams po tid x 11 days for rapid elimination of MS medication, Aubagio linaclotide (LINZESS) 145 mcg cap Take 1 capsule by mouth once daily. ondansetron orally disintegrating (ZOFRAN ODT) 4 mg disintegrating tablet Take 1 tablet by mouth every 4 hours as needed for Nausea/Vomiting. famotidine (PEPCID) 20 mg tablet Take 1 tablet by mouth twice daily. sertraline (ZOLOFT) 50 mg tablet Take 50 mg by mouth once daily. OREGANO OIL ORAL Take by mouth. 2 capsules daily, 400mg ea diphenhydrAMINE (BENADRYL) 25 mg capsule Take 25 mg by mouth every 6 hours as needed. taking 12 capsules daily lubiprostone (AMITIZA) 8 mcg capsule Take 3 capsules by mouth twice daily with meals. aspirin, enteric coated (ASPIRIN, ENTERIC COATED) 81 mg EC tablet Take 81 mg by mouth once daily. DOCOSAHEXANOIC ACID/EPA (FISH OIL ORAL) Take 3,000 mg by mouth once daily. potassium chloride ER (K-DUR, KLOR-CON) 20 mEq tablet Take 1 tablet by mouth once daily. docusate sodium (DULCOLAX STOOL SOFTENER, DSS,) 100 mg capsule Take 200 mg by mouth twice daily. magnesium citrate solution Take 296 mL by mouth one time only. CYANOCOBALAMIN, VITAMIN B-12, (VITAMIN B-12 ORAL) Take by mouth. amLODIPine (NORVASC) 10 mg tablet Take 10 mg by mouth once daily. acetaminophen (TYLENOL) 325 mg tablet Take 650 mg by mouth every 6 hours as needed. VITAMIN E, DL,TOCOPHERYL ACET, (VITAMIN E, DL, ACETATE,) 400 unit capsule Take 400 Units by mouth once daily. LACTOBACILLUS COMBINATION NO.8 (ADULT PROBIOTIC ORAL) Take by mouth once daily. nitroglycerin sublingual (NITROQUICK) 0.4 mg SL tablet Dissolve 1 tablet under the tongue as needed. FOR CHEST PAIN. IF NO RELIEF CALL 911 LORAZEPAM 1 mg tablet Take 0.5 mg by mouth twice daily. venlafaxine (EFFEXOR) 25 mg tablet Take 25 mg by mouth once daily. Radiopaque PVC Markers-Barium (SITZMARKS) 24 Markers cap Take 2 capsules by mouth as directed. plecanatide 3 mg tab Take 3 mg by mouth once daily. mirtazapine (REMERON) 30 mg tablet Take 1 tablet by mouth daily at bedtime. tiZANidine HCl (ZANAFLEX) 2 mg capsule 1 tab po 3 times a day for truncal spasm No current facility-administered medications for this visit. 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 OBJECTIVE: BP 118/72 Pulse 86 Temp 36.8 ?C (98.3 ?F) (Tympanic) Resp 17 Wt 77.1 kg (170 lb) SpO2 98% BMI 23.71 kg/m2 APPEARANCE Well appearing, alert, in no acute distress, well-hydrated, well nourished. EYES PERRLA, conjunctiva and sclera normal. EARS External ears normal, canals clear. TMs normal GIOVANNY NOSE/SINUS Nares normal. Septum midline. Mucosa normal. No drainage or sinus tenderness. THROAT normal, no erythema NECK Supple, no adenopathy; HEART RRR with normal S1 and S2, LUNG coarse breath sounds GIOVANNY. Scattered expiratory wheezes. ASSESSMENT/PLAN: 1. Bronchitis - ICD9: 490, ICD10: J40 Supportive care with fluids and rest Reviewed red flags and when to seek care sooner. - DOXYCYCLINE HYCLATE 100 MG TABLET - PREDNISONE 20 MG TABLET The patient indicates understanding of these issues and agrees with the plan. Reviewed red flags and when to seek care sooner. VINNY Santiago Observed: 05/05/2017 Status: COMPLETED Source: [place] 2:15 PM [facility] REPOSITORY Office Visit (WSTR) OLIVER CUNNINGHAM ([id number]) 1960 M Date Time Provider Department 05/05/17 2:15 PM RADHA JAIN) [facility] During your visit today, we recorded the following information about you: Temperature Pulse Respiration Blood pressure 98.3 degrees 86/minute 17/minute 118/72 Weight 77.1 kg Radha Jain PA-C 05/05/2017 3:10 PM Signed 05/05/2017 Patient presents with: Cough: cough,chest congestion and wheezing x 1 month Pain, Sinus: sinus pressure(head) x yesterday SUBJECTIVE: This is a 56 year old that is here today for Complaint(s) of cough and chest congestoin x 1 month. + sinus pressure and congestion. Having a sinus BROUSSARD. + chills. Notes SOb/wheezing. Was on tamiflu at the beginning of the month. Denies fever. PMH MS. +everyday smoker. PAST MEDICAL HISTORY Diagnosis Date - Black spider bite 10/2007 - Cervical radiculopathy - CHI (closed head injury) 20 years ago. 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 ALLERGIES Hydrocodone; Lyrica [Pregabalin]; Aubagio [Teriflunomide]; Bentyl [Dicyclomine Hcl]; Celexa [Citalopram Hydrobromide]; Copaxone [Glatiramer Acetate]; Cymbalta [Duloxetine]; Erythromycin; Fenofibrate; Hctz [Amiloride-Hydrochlorothiazide]; Lipitor [Atorvastatin Calcium]; Miralax [Polyethylene Glycol 3350]; Mobic [Meloxicam]; Morphine; Penicillins; Pravastatin; Prilosec [Omeprazole Magnesium]; Reglan [Metoclopramide Hcl]; Welchol [Colesevelam Hcl]; Xifaxan [Rifaximin] MEDICATIONS Current Outpatient Prescriptions: Melatonin 5 mg tab Take 50 mg by mouth daily at bedtime. Cholestyramine-Aspartame (CHOLESTYRAMINE LIGHT) 4 gram powder 4grams po tid x 11 days for rapid elimination of MS medication, Aubagio linaclotide (LINZESS) 145 mcg cap Take 1 capsule by mouth once daily. ondansetron orally disintegrating (ZOFRAN ODT) 4 mg disintegrating tablet Take 1 tablet by mouth every 4 hours as needed for Nausea/Vomiting. famotidine (PEPCID) 20 mg tablet Take 1 tablet by mouth twice daily. sertraline (ZOLOFT) 50 mg tablet Take 50 mg by mouth once daily. OREGANO OIL ORAL Take by mouth. 2 capsules daily, 400mg ea diphenhydrAMINE (BENADRYL) 25 mg capsule Take 25 mg by mouth every 6 hours as needed. taking 12 capsules daily lubiprostone (AMITIZA) 8 mcg capsule Take 3 capsules by mouth twice daily with meals. aspirin, enteric coated (ASPIRIN, ENTERIC COATED) 81 mg EC tablet Take 81 mg by mouth once daily. DOCOSAHEXANOIC ACID/EPA (FISH OIL ORAL) Take 3,000 mg by mouth once daily. potassium chloride ER (K-DUR, KLOR-CON) 20 mEq tablet Take 1 tablet by mouth once daily. docusate sodium (DULCOLAX STOOL SOFTENER, DSS,) 100 mg capsule Take 200 mg by mouth twice daily. magnesium citrate solution Take 296 mL by mouth one time only. CYANOCOBALAMIN, VITAMIN B-12, (VITAMIN B-12 ORAL) Take by mouth. amLODIPine (NORVASC) 10 mg tablet Take 10 mg by mouth once daily. acetaminophen (TYLENOL) 325 mg tablet Take 650 mg by mouth every 6 hours as needed. VITAMIN E, DL,TOCOPHERYL ACET, (VITAMIN E, DL, ACETATE,) 400 unit capsule Take 400 Units by mouth once daily. LACTOBACILLUS COMBINATION NO.8 (ADULT PROBIOTIC ORAL) Take by mouth once daily. nitroglycerin sublingual (NITROQUICK) 0.4 mg SL tablet Dissolve 1 tablet under the tongue as needed. FOR CHEST PAIN. IF NO RELIEF CALL 911 LORAZEPAM 1 mg tablet Take 0.5 mg by mouth twice daily. venlafaxine (EFFEXOR) 25 mg tablet Take 25 mg by mouth once daily. Radiopaque PVC Markers-Barium (SITZMARKS) 24 Markers cap Take 2 capsules by mouth as directed. plecanatide 3 mg tab Take 3 mg by mouth once daily. mirtazapine (REMERON) 30 mg tablet Take 1 tablet by mouth daily at bedtime. tiZANidine HCl (ZANAFLEX) 2 mg capsule 1 tab po 3 times a day for truncal spasm No current facility-administered medications for this visit. 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 OBJECTIVE: BP 118/72 Pulse 86 Temp 36.8 ?C (98.3 ?F) (Tympanic) Resp 17 Wt 77.1 kg (170 lb) SpO2 98% BMI 23.71 kg/m2 APPEARANCE Well appearing, alert, in no acute distress, well- hydrated, well nourished. EYES PERRLA, conjunctiva and sclera normal. EARS External ears normal, canals clear. TMs normal GIOVANNY NOSE/SINUS Nares normal. Septum midline. Mucosa normal. No drainage or sinus tenderness. THROAT normal, no erythema NECK Supple, no adenopathy; HEART RRR with normal S1 and S2, LUNG coarse breath sounds GIOVANNY. Scattered expiratory wheezes. ASSESSMENT/PLAN: 1. Bronchitis - ICD9: 490, ICD10: J40 Supportive care with fluids and rest Reviewed red flags and when to seek care sooner. - DOXYCYCLINE HYCLATE 100 MG TABLET - PREDNISONE 20 MG TABLET The patient indicates understanding of these issues and agrees with the plan. Reviewed red flags and when to seek care sooner. Radha Jain PA-C Referring Provider: SELF [200] Allergies As of Date: 05/05/2017 Noted Allergy Reaction HYDROCODONE 12/17/2013 8 - GI Upset Comments: Feels like bleeding Inside stomach LYRICA (PREGABALIN) 07/04/2015 5 - Intolerance AUBAGIO (TERIFLUNOMIDE) 04/25/2017 14 - Other: See Comments Comments: Passed out BENTYL (DICYCLOMINE HCL) 01/05/2016 14 - Other: See Comments CELEXA (CITALOPRAM HYDROBROMIDE) 04/28/2012 14 - Other: See Comments Comments: Terrible headaches. COPAXONE (GLATIRAMER ACETATE) 08/24/2013 2 - Rash 9 - Itching CYMBALTA (DULOXETINE) 08/04/2012 14 - Other: See Comments Comments: chest pain, abnormal sensation/feeling in chest ERYTHROMYCIN 02/14/2017 14 - Other: See Comments Comments: turns everything to stone inside my bowels FENOFIBRATE 08/25/2013 5 - Intolerance Comments: chest pain and numbness HCTZ (AMILORIDE-HYDROCHLOROTHIAZI*12/24/2015 14 - Other: See Comments Comments: Tripping, falling, no sense of balance LIPITOR (ATORVASTATIN CALCIUM) 12/17/2013 14 - Other: See Comments Comments: ruq PAIN MIRALAX (POLYETHYLENE GLYCOL 3350)07/10/2016 7 - Swelling 8 - GI Upset Comments: Swollen abdomen - go lightly MOBIC (MELOXICAM) 07/26/2010 9 - Itching MORPHINE 12/01/2013 14 - Other: See Comments Comments: Side pain PENICILLINS 05/18/2010 2 - Rash Comments: high fevers PRAVASTATIN 01/18/2014 14 - Other: See Comments Comments: Muscle soreness PRILOSEC (OMEPRAZOLE MAGNESIUM) 07/14/2013 14 - Other: See Comments Comments: increased abdominal pressure, travels up to the chest area REGLAN (METOCLOPRAMIDE HCL) 10/03/2016 8 - GI Upset Comments: Also gives chest pain WELCHOL (COLESEVELAM HCL) 06/24/2013 14 - Other: See Comments Comments: Abdomen and chest pain XIFAXAN (RIFAXIMIN) 07/04/2015 14 - Other: See Comments Comments: Insomnia Date Reviewed: 05/05/2017 Reviewed by: Lola Jorge Strip Machine Tender - Fully Assessed Reason for Visit: Cough [28] Cmt: cough,chest congestion and wheezing x 1 month Pain, Sinus [857] Cmt: sinus pressure(head) x yesterday Primary Visit Diagnosis:Bronchitis [J40] Order(s):doxycycline (VIBRA-TABS) 100 mg tabletTake 1 tablet by mouth twice daily for 10 days.Disp: 20 tabletRfl: 0 predniSONE (DELTASONE) 20 mg tabletTake 2 tablets by mouth once daily for 5 days.Disp: 10 tabletRfl: 0 Prescriptions as of 05/05/2017 Sig: MELATONIN 5 MG TABLET Take 50 mg by mouth daily at * CHOLESTYRAMINE-ASPARTAME 4 GR* 4grams po tid x 11 days for * LINACLOTIDE 145 MCG CAPSULE Take 1 capsule by mouth once * ONDANSETRON 4 MG DISINTEGRATI* Take 1 tablet by mouth every * FAMOTIDINE 20 MG TABLET Take 1 tablet by mouth twice * SERTRALINE 50 MG TABLET Take 50 mg by mouth once ony* OREGANO OIL ORAL Take by mouth. 2 capsules da* DIPHENHYDRAMINE 25 MG CAPSULE Take 25 mg by mouth every 6 h* LUBIPROSTONE 8 MCG CAPSULE Take 3 capsules by mouth twic* ASPIRIN 81 MG TABLET,DELAYED * Take 81 mg by mouth once noy* FISH OIL ORAL Take 3,000 mg by mouth once d* POTASSIUM CHLORIDE ER 20 MEQ * Take 1 tablet by mouth once d* DOCUSATE SODIUM 100 MG CAPSULE Take 200 mg by mouth twice da* MAGNESIUM CITRATE ORAL SOLUTI* Take 296 mL by mouth one time* VITAMIN B-12 ORAL Take by mouth. AMLODIPINE 10 MG TABLET Take 10 mg by mouth once noy* ACETAMINOPHEN 325 MG TABLET Take 650 mg by mouth every 6 * VITAMIN E (DL, ACETATE) 400 U* Take 400 Units by mouth once * ADULT PROBIOTIC ORAL Take by mouth once daily. NITROGLYCERIN 0.4 MG SUBLINGU* Dissolve 1 tablet under the t* LORAZEPAM 1 MG TABLET Take 0.5 mg by mouth twice da* DOXYCYCLINE HYCLATE 100 MG TA* Take 1 tablet by mouth twice * PREDNISONE 20 MG TABLET Take 2 tablets by mouth once * VENLAFAXINE 25 MG TABLET Take 25 mg by mouth once noy* RADIOPAQUE PVC MARKERS-BARIUM* Take 2 capsules by mouth as d* PLECANATIDE 3 MG TABLET Take 3 mg by mouth once daily. MIRTAZAPINE 30 MG TABLET Take 1 tablet by mouth daily * TIZANIDINE 2 MG CAPSULE 1 tab po 3 times a day for tr* Problem List As Of Date 05/05/2017 Noted Resolved Hypertension [I10] INVALID FOR* More... Hyperlipidemia [E78.5] INVALID FOR* Diabetes mellitus, type 2 (HCC) [E11.9] INVALID FOR*12/24/2015 Tobacco use disorder [F17.200] INVALID FOR* Neck pain [M54.2] INVALID FOR* DDD (degenerative disc disease), cervical [M50.*INVALID FOR* Tendinitis of shoulder [M75.80] INVALID FOR* Cervical radiculopathy [M54.12] INVALID FOR* Rotator cuff tear [M75.100] INVALID FOR*09/04/2011 Muscular wasting and disuse atrophy, not elsewh*INVALID FOR* Cervicalgia [M54.2] INVALID FOR* Lumbago [M54.5] INVALID FOR* Lumbar spondylosis [M47.816] INVALID FOR* DDD (degenerative disc disease), lumbar [M51.36]INVALID FOR* Special screening for malignant neoplasms, colo*INVALID FOR*12/24/2015 Umbilical hernia without mention of obstruction*INVALID FOR* Myelitis [G04.91] INVALID FOR* Imaging abnormality [R93.8] INVALID FOR* Chronic abdominal pain [R10.9] INVALID FOR* Priority: B More... Chronic neck pain [M54.2, G89.29] INVALID FOR* More... SUMMARY [V999.95] INVALID FOR* Priority: A More... Periumbilical abdominal pain [R10.33] INVALID FOR* MS (multiple sclerosis) (HCC) [G35] INVALID FOR* Recurrent major depression in partial remission*INVALID FOR* Prescriptions ordered this encounter Disp Refills Start End DOXYCYCLINE HYCLATE 100 MG TABLET 20 t* 0 05/05/2017 05/15/2017 Route: ORAL Sig: Take 1 tablet by mouth twice daily for 10 days. PREDNISONE 20 MG TABLET 10 t* 0 05/05/2017 05/10/2017 Route: ORAL Sig: Take 2 tablets by mouth once daily for 5 days. Encounter Status:Closed by RADHA JAIN PA-C on 05/05/17 ALLERGIES ALLERGIES DATE TYPE / NAME / CODE REACTION SEVERITY SOURCE CODE Drug gemifloxacin Other Unknown [place] 9 Allergy/4 mesylate/[id number](RXNO [facility] [id number]( [facility] SNOMED Repository CT) Drug dicyclomine shut off Unknown [place] 9 Allergy/4 HCl/[id number](RXNORM) bowels Community [id number]( [facility]) Drug citalopram itches bones Unknown [place] 9 Allergy/4 hydrobromide/[id number]( Community 10631014( RXNORM) [facility]) Drug glatiramer Rash Unknown [place] 9 Allergy/4 acetate/E712568290(RXNOR Community [id number]( M) [facility]) Drug duloxetine tickle around Unknown [place] 9 Allergy/4 HCl/V980716308(RXNORM) heart Community 72339538( [facility]) Drug colesevelam PAIN Unknown [place] 9 Allergy/4 HCl/V979876385(RXNORM) Community [id number]( [facility]) Drug Penicillins/R943138925(R Rash Unknown [place] 9 Allergy/4 XNORM) Community 46796579( [facility]) Drug hydrochlorothiazide/F006 Other Unknown [place] 9 Allergy/4 458983(RXNORM) Community 69122144( [facility]) Drug naproxen/[id number](RXNO Itching Unknown [place] 9 Allergy/4 RM) Community 78113100( [facility]) Drug azithromycin/P901362734( Other Unknown [place] 9 Allergy/4 RXNORM) Community 62516135( [facility]) Drug fenofibrate/[id number](R PAIN Unknown [place] 9 Allergy/4 XNORM) Community 81770986( [facility]) Drug ranitidine/D035939889(RX TEARS UP Unknown [place] 9 Allergy/4 NORM) STOMACH Community 99881113( [facility]) Drug magnesium/E931205152(RXN STOMACH PAIN Unknown [place] 9 Allergy/4 ORM) Community 80385952( [facility]) Drug metoclopramide/R41599669 Chest tightness Unknown [place] 9 Allergy/4 8(RXNORM) Community 95918379( [facility] Repository [facility]) Drug tamsulosin/I804505069(RX MAKES MY CHEST Unknown [place] 9 Allergy/4 NORM) TIGHT Community 21456408( [facility]) Drug meloxicam/Q685289424(RXN bones itch Unknown [place] 9 Allergy/4 ORM) Community 71245046( [facility]) Drug rifaximin/M338141582(RXN Chest tightness Unknown [place] 9 Allergy/4 ORM) Community 72597408( [facility]) Drug pregabalin/K971068020(RX WEAKENED NECK Unknown [place] 9 Allergy/4 NORM) Community 45104502( [facility]) Drug sulfamethoxazole/Y384903 Other Unknown [place] 9 Allergy/4 827(RXNORM) Community 82864896( [facility]) Drug trimethoprim/B580833194( Other Unknown [place] 9 Allergy/4 RXNORM) Community 08414823( [facility]) Drug teriflunomide/[id number] Other Unknown [place] 9 Allergy/4 (RXNORM) Community 15240498( [facility]) Drug linaclotide/Y538257724(R Other Unknown [place] 8 Allergy/4 XNORM) Community 68654660( [facility] CT) DRUG TERIFLUNOMIDE [facility] 8 INGREDI/4 Repository 12204966( SNOMED CT) DRUG METOCLOPRAMIDE HCL [facility] 8 INGREDI/4 Repository 57408113( SNOMED CT) Drug PENICILLINS Anaphylaxis High [facility] 8 Class/419 Repository 570683(SN OMED CT) DRUG MELOXICAM Itching [facility] 8 INGREDI/4 Repository 09131611( SNOMED CT) DRUG NAPROXEN Itching [facility] 8 INGREDI/4 Repository 04225069( SNOMED CT) DRUG SULFAMETHOXAZOLE [facility] INGREDI/4 W-TRIMETHOPRIM System 64407355( Repository SNOMED CT) DRUG TERIFLUNOMIDE [facility] 8 INGREDI/4 System 77231850( Repository SNOMED CT) DRUG TERIFLUNOMIDE OTHER: SEE Mara [facility] 8 INGREDI/4 Clinic Main 19510108( [place] SNOMED Repository CT) DRUG/4195 DULOXETINE HCL [facility] 7 23788(SNO System MED CT) Repository DRUG PREGABALIN [facility] 7 INGREDI/4 System 81160628( Repository SNOMED CT) DRUG MELOXICAM [facility] 7 INGREDI/4 System 79747658( Repository SNOMED CT) Drug PENICILLINS HIVES [facility] 7 Class/419 System 929846(SN Repository OMED CT) DRUG ERYTHROMYCIN [facility] 7 INGREDI/4 System 73021145( Repository SNOMED CT) DRUG/4195 ERYTHROMYCIN OTHER: SEE Mara [facility] 7 92898(SNO Clinic Main MED CT) [place] Repository DRUG/4195 COPAXONE RASH Mild [facility] 7 02445(SNO (Qualifier System MED CT) Value) Repository DRUG DICYCLOMINE [facility] 7 INGREDI/4 System 97851178( Repository SNOMED CT) DRUG NAPROXEN [facility] 7 INGREDI/4 System 19819451( Repository SNOMED CT) DRUG METOCLOPRAMIDE [facility] 7 INGREDI/4 System 99030011( Repository SNOMED CT) DRUG METOCLOPRAMIDE HCL GI UPSET [facility] 7 INGREDI/4 Clinic Main 19510108( [place] SNOMED Repository CT) DRUG POLYETHYLENE GLYCOL SWELLING [facility] 7 INGREDI/4 System 06756722( Repository SNOMED CT) DRUG POLYETHYLENE GLYCOL 3350 SWELLING [facility] 7 INGREDI/4 Clinic Main 19510108( [place] SNOMED Repository CT) DRUG DICYCLOMINE HCL OTHER: SEE Mara Jimenez 6 INGREDI/4 Clinic Main 08515069( [place] SNOMED Repository CT) DRUG/4195 AMILORIDE-HYDROCHLOROTHI [facility] 6 81435(SNO AZIDE Repository MED CT) DRUG HYDROCHLOROTHIAZIDE [facility] 6 INGREDI/4 W-AMILORIDE System 74614108( Repository SNOMED CT) DRUG/4195 AMILORIDE-HYDROCHLOROTHI OTHER: SEE [facility] 6 81182(SNO AZIDE Clinic Main MED CT) [place] Repository DRUG CITALOPRAM [facility] 6 INGREDI/4 Repository 48333801( SNOMED CT) DRUG CITALOPRAM [facility] 6 INGREDI/4 System 50150526( Repository SNOMED CT) DRUG MAGNESIUM [facility] 6 INGREDI/4 System 81997813( Repository SNOMED CT) DRUG PANTOPRAZOLE [facility] 6 INGREDI/4 System 37821036( Repository SNOMED CT) DRUG RANITIDINE [facility] 6 INGREDI/4 System 72998011( Repository SNOMED CT) DRUG SUCRALFATE [facility] 6 INGREDI/4 System 07166227( Repository SNOMED CT) DRUG RIFAXIMIN [facility] 6 INGREDI/4 System 12448773( Repository SNOMED CT) DRUG PREGABALIN INTOLERANCE [place] [address] INGREDI/4 Clinic Main 19510108( [place] SNOMED Repository CT) DRUG RIFAXIMIN OTHER: SEE [place] [address] INGREDI/4 Clinic Main 19510108( [place] SNOMED Repository CT) DRUG [facility]AVASTATIN [facility] 4 INGREDI/4 System 76713958( Repository SNOMED CT) DRUG PRAVASTATIN OTHER: SEE [place] [address] INGREDI/4 Clinic Main 19510108( [place] SNOMED Repository CT) DRUG ATORVASTATIN Other [facility] 4 INGREDI/4 Repository 64434773( SNOMED CT) DRUG HYDROCODONE Severe [facility] INGREDI/4 (Severity System 95881602( Modifier) Repository SNOMED (Qualifier CT) Value) DRUG ATORVASTATIN [facility] 4 INGREDI/4 System 25948562( Repository SNOMED CT) DRUG HYDROCODONE GI UPSET High [facility] 4 INGREDI/4 Clinic Main 19510108( [place] SNOMED Repository CT) DRUG ATORVASTATIN CALCIUM OTHER: SEE [facility] 4 INGREDI/4 Clinic Main 19510108( [place] SNOMED Repository CT) DRUG MORPHINE [facility] 4 INGREDI/4 System 19510108( Repository SNOMED CT) DRUG MORPHINE OTHER: SEE [facility] 4 INGREDI/4 Clinic Main 19510108( [place] SNOMED Repository CT) DRUG FENOFIBRATE [facility] 4 INGREDI/4 System 75446698( Repository SNOMED CT) DRUG FENOFIBRATE INTOLERANCE [place] 4 INGREDI/4 Clinic Main 19510108( [place] SNOMED Repository CT) DRUG GLATIRAMER ACETATE RASH [facility] 4 INGREDI/4 Clinic Main 19510108( [place] SNOMED Repository CT) DRUG OMEPRAZOLE [facility] 4 INGREDI/4 System 19510108( Repository SNOMED CT) DRUG OMEPRAZOLE MAGNESIUM OTHER: SEE [facility] 4 INGREDI/4 Clinic Main 19510108( [place] SNOMED Repository CT) DRUG COLESEVELAM [facility] 4 INGREDI/4 System 19510108( Repository SNOMED CT) DRUG COLESEVELAM HCL OTHER: SEE C [facility] 4 INGREDI/4 Clinic Main 19510108( [place] SNOMED Repository CT) DRUG DULOXETINE OTHER: SEE [facility] 3 INGREDI/4 Clinic Main 19510108( [place] SNOMED Repository CT) DRUG CITALOPRAM HYDROBROMIDE OTHER: SEE C [facility] 3 INGREDI/4 Clinic Main 19510108( [place] SNOMED Repository CT) DRUG MELOXICAM ITCHING [facility] 1 INGREDI/4 Clinic Main 19510108( [place] SNOMED Repository CT) Drug PENICILLINS RASH [facility] 1 Class/419 Clinic Main 482193( [place] OMED CT) Repository Drug PENICILLINS Moderate Carlos [place] Allergy/4 (CLASS)/14440648(RXNORM) ([facility] 82461628( Modifier) Hospital SNOMED (Qualifier Repository CT) Value) Drug HYDROCHLOROTHIAZIDE/0000 U Carlos Pomerene Allergy/4 0309(RXNORM) [facility] 95211186( Hospital SNOMED Repository CT) Drug BACLOFEN/67283963(RXNORM U Carlos [place]omerene Allergy/4 ) [facility] 37101402( Hospital SNOMED Repository CT) Drug MAGNESIUM/84159122(RXNOR U Carlos Pomerene Allergy/4 M) [facility] 26011805( Hospital SNOMED Repository CT) Drug RANITIDINE/86106891(RXNO Moderate Carlos Pomerene Allergy/4 RM) ([facility] 30120134( Modifier) Hospital SNOMED (Qualifier Repository CT) Value) Drug OMEPRAZOLE/21141394(RXNO Moderate Carlos Pomerene Allergy/4 RM) ([facility] 61414971( Modifier) Hospital SNOMED (Qualifier Repository CT) Value) Drug FENOFIBRATE/96676361(RXN Moderate Carlos Pomerene Allergy/4 ORM) ([facility] 37425546( Modifier) [facility] SNOMED (Qualifier Repository CT) Value) Drug BENTYL/72944864(RXNORM) U Carlos Pomerene Allergy/4 [facility] 62816501( Hospital SNOMED Repository CT) Drug CELEXA/94505050(RXNORM) Moderate Carlos Pomerene Allergy/4 ([facility] 43738787( Modifier) Hospital SNOMED (Qualifier Repository CT) Value) Drug CRESTOR/77753099(RXNORM) Moderate Carlos Pomerene Allergy/4 ([facility] 61210947( Modifier) [facility] SNOMED (Qualifier Repository CT) Value) Drug CYMBALTA/29088484(RXNORM Moderate Carlos Pomerene Allergy/4 ) ([facility] 58877588( Modifier) Hospital SNOMED (Qualifier Repository CT) Value) Drug LYRICA/59919203(RXNORM) U Carlos Pomerene Allergy/4 [facility] 17140370( Hospital SNOMED Repository CT) Drug MIRALAX/04805983(RXNORM) U Carlos Pomerene Allergy/4 [facility] 84384848( Hospital SNOMED Repository CT) Drug WELCHOL/81305005(RXNORM) Moderate Carlos Pomerene Allergy/4 ([facility] 32606950( Modifier) [facility] SNOMED (Qualifier Repository CT) Value) Drug MOBIC/73160960(RXNORM) Moderate Carlos Pomerene Allergy/4 ([facility] 81221778( Modifier) Hospital SNOMED (Qualifier Repository CT) Value) Drug XIFAXAN/02625065(RXNORM) Moderate Carlos Pomerene Allergy/4 (Severity [facility] 93730550( Modifier) Hospital SNOMED (Qualifier Repository CT) Value) Drug EFFEXOR U Carlos Pomerene Allergy/4 XR/96473707(RXNORM) [facility] 51360319( Hospital SNOMED Repository CT) Drug STATINS/80837390(RXNORM) U Carlos Pomerene Allergy/4 [facility] 67573569( Hospital SNOMED Repository CT) NG/053283 HYDROCODONE [facility] 006(SNOME [facility] Repository NG/584929 PREGABALIN [facility] 006([facility]) Repository NG/808843 DICYCLOMINE HCL [facility] 006([facility]) Repository NG/138422 CITALOPRAM HYDROBROMIDE [facility] 006([facility]) Repository NG/523437 GLATIRAMER ACETATE [facility] 006([facility]) Repository NG/016253 DULOXETINE [facility] 006([facility]) Repository NG/306746 ERYTHROMYCIN [facility] 006([facility]) Repository NG/321111 FENOFIBRATE [facility] 006([facility]) Repository NG/959986 ATORVASTATIN CALCIUM [facility] 006([facility]) Repository NG/748944 POLYETHYLENE GLYCOL 3350 [facility] 006([facility]) Repository NG/075947 MELOXICAM [facility] 006([facility]) Repository NG/070450 MORPHINE [facility] 006([facility]) Repository NG/718147 PENICILLINS [facility] 006([facility]) Repository NG/110182 PRAVASTATIN [facility] 006([facility]) Repository NG/965012 OMEPRAZOLE MAGNESIUM [facility] 006([facility]) Repository NG/677147 COLESEVELAM HCL [facility] 006([facility]) Repository NG/308363 RIFAXIMIN [facility] 006([facility]) Repository Drug/4195 Bentyl shuts bowels [facility] 23223([facility]) System Repository Drug/4195 Trulance [id number] [facility] 83054([facility]) System Repository Drug/4195 Bactrim blood in urine [facility] 91384([facility]) System Repository Drug/4195 Aubagio generalized pain [place] 65653([facility]) System Repository Drug/4195 naproxen Rash [place] 30749([facility]) System Repository Drug/4195 magnesium sulfate Rash [facility] 28615([facility]) System Repository Drug/4195 hydrochlorothiazide-tria rsh [place] 21901([facility]) System Repository Drug/4195 penicillins Rash [place] 22306([facility]) System Repository Drug/4195 proton pump inhibitors Rash [place] 64436([facility]) System Repository Drug/4195 Mobic Rash [place] 70407([facility]) System Repository Drug/4195 Xifaxan Rash [place] 72503([facility]) System Repository Drug/4195 Cymbalta irregular heart Severe Shinto 94997([facility]) System Repository Drug/4195 Lyrica Rash Shinto 05427([facility]) System Repository ENCOUNTERS ENCOUNTERS ADMIT/DISCHARGE ACCOUNT NUMBER ADMITTING ENCOUNTER LOCATION SOURCE CLASS 04/24/2018/ [id number] Emergency [address] ding:ED Repository 04/23/2018/ [id number] Emergency [address] Other [place] Repository 04/21/2018 [id number] Emergency BuildinA [facility] EDRoom: 2A System 444Bed: Repository [id number] 04/19/2018 [id number] Emergency [facility] Repository ng:H.ED 04/19/2018/ [id number] Emergency ABuilding:ER [address] Repository 04/17/2018/ [id number] Emergency ABuilding:[address] Repository 04/15/2018/ [id number] Ambulatory UHCBuilding: [place] [address] TESARoom: Hospitals [id number]: Repository [id number] 04/13/2018 [id number] [facility] ng:H.ED 04/11/2018/ [id number] Emergency BBuilding:ER [facility] 019 [facility] Repository 04/09/2018 [id number] [facility] ng:H.MOISES 04/07/2018 [id number] [facility] Repository ng:H.ED 04/05/2018 [id number] Emergency Buildin[address] [place] [address] EDRoom: [address] [place], [place] [address]Bed: Repository [id number] 04/03/2018 [id number] [facility] Repository ng:H.ED 03/26/2018 [id number] Ambulatory [facility] Repository ng:H.MOISES 03/24/2018/ [id number] Emergency ABuilding:ER [address] Repository 03/24/2018 [id number] [facility] Repository ng:H.ED 03/22/2018 [id number] [facility] Repository ng:H.ED 03/20/2018 [id number] [facility] Repository ng:H.SD 03/17/2018/ [id number] Emergency BBuilding:ER [place] [address] O Foundation Repository 03/12/2018 [id number] [facility] Repository ng:H.MOISES 03/10/2018/ [id number] Emergency BBuilding:ER [facility] 018 O Foundation Repository 03/05/2018 [id number] Ambulatory Building:[facility] Repository 03/03/2018 [id number] [facility] Rep[facility] ng:H.ED 02/26/2018/ [id number] Emergency Michael Michael [address] [facility] ding:ED Repository 02/20/2018/ [id number] [place] [address] [facility] ding:ED Repository 02/17/2018/ [id number] Ambulatory [place] 018 [facility] Repository 02/07/2018 [id number] Emergency [facility] Repository ng:H.ED 02/02/2018/ [id number] Emergency [place] 018 [facility] Repository 02/01/2018/ [id number] Emergency [place] [address] [facility] ding:ED Repository 02/01/2018/ [id number] Emergency BBuilding:ER [facility] 018 O [facility] Repository 01/31/2018/ [id number] Emergency [place] 018 [facility] Repository 01/31/2018/ [id number] Emergency [place] Michael [address] [facility] ding:ED Repository 01/27/2018/ [id number] Emergency Michael [place] [address] [facility] ding:ED Repository 01/26/2018/ [id number] Emergency [place] Michael [address] [facility] ding:ED Repository 01/21/2018/ [id number] Emergency BBuilding:ER [facility] 018 O [facility] Repository 01/16/2018/ [id number] [facility], Ambulatory Buildin[address] [place] [address] MARY ELLEN ANDRE davidom: One Repository 8215Bed: 02 01/14/2018/ [id number] Emergency BBuilding:ER [facility] 018 O [facility] Repository 01/06/2018 [id number] Emergency [facility] Repository ng:H.ED 12/30/2017/ [id number] Emergency [place] 018 [facility] Repository 12/30/2017 [id number] Ambulatory [facility] Repository 12/27/2017 [id number] Ambulatory General acute hospital ding:[facility] Repository 12/25/2017 [id number] RICHARD, Ambulatory [facility] Repository 12/19/2017/ [id number] Emergency [place] 018 [facility] Main [place] Repository 12/14/2017/ [id number] Emergency Michael [place] [address] [facility] ding:ED Repository 12/06/2017/ [id number] Emergency [place] 018 [facility] Other [place] Repository 12/04/2017/ [id number] Emergency BBuilding:ER [address] Repository 12/03/2017 [id number] Emergency BuildinA [facility] EDRoom: 2A System 444Bed: Repository [id number] 12/01/2017/ [id number] Emergency ABuilding:ER [address] Repository 11/29/2017 [id number] Emergency BuildinA [facility] EDRoom: 2A System 444Bed: Repository [id number] 11/29/2017/ [id number] Emergency Michael [place] [address] [facility] ding:ED Repository 11/22/2017/ [id number] Marco Antonio, [address] Repository ng:H.9MRoom: 4F775Yos: 11/20/2017/ [id number] Emergency [place] [address] [facility] ding:ED Repository 11/13/2017/ [id number] Emergency [place] [address] [facility] ding:ED Repository 11/08/2017 [id number] Emergency BuildinA [facility] EDRoom: 2A System 444Bed: Repository [id number] 11/05/2017/ [id number] Emergency [place] 018 [facility] Other [place] Repository 11/05/2017/ [id number] Emergency AKRON [address] MEDICAL Repository [facility] ng:AKEDRoom: EMBed: 36 10/29/2017 [id number] Emergency [facility] Repository ng:H.ED 10/27/2017/ [id number] Emergency ABuilding:ER [address] Repository 10/22/2017/ [id number] Emergency [address] Other [place] Repository 10/20/2017/ [id number] Emergency [address] Repository 10/17/2017/ [id number] Ambulatory [address] Repository 10/15/2017 [id number] Ambulatory [facility] Repository 10/11/2017 [id number] Ambulatory [facility] Repository 10/06/2017/ [id number] Emergency BBuilding:ER [address] Repository 10/06/2017/ [id number] Emergency BBuilding:ER [address] Repository 10/05/2017 [id number] Emergency BuildinA [facility] EDRoom: 2A System 444Bed: Repository [id number] 10/04/2017 [id number] Ambulatory [facility] System Repository 09/30/2017/ [id number] Emergency BBuilding:ER [address] Repository 09/29/2017/ [id number] VOL, Emergency Buildin Carlos Seth [address] [place] [address] Room: ERBed: [facility] Repository 09/29/2017/ [id number] Emergency ABuilding:ER [address] Repository 09/27/2017/ [id number] Emergency [address] Repository 09/26/2017 [id number] Ambulatory Building:[facility] Repository 09/26/2017 [id number] Emergency BuildinA [facility] ERRoom: System 5Q0CUPVjw: Repository [id number] 09/24/2017 [id number] Emergency [facility] Repository ng:H.ED 09/15/2017 [id number] Emergency [facility] Repository ng:H.ED 09/13/2017/ [id number] Emergency ABuilding:ER [address] Repository 09/03/2017 [id number] Ambulatory [facility] Repository ng:H.SHA 09/01/2017 [id number] Emergency [facility] Repository ng:H.ED 08/30/2017 [id number] Ambulatory [facility] Repository 08/29/2017/ [id number] Emergency [address] Repository 08/29/2017 [id number] Ambulatory General acute hospital ding:LAB Repository 08/24/2017 [id number] Emergency [facility] Repository ng:H.ED 08/22/2017 [id number] Emergency Buildin[address] [place] [address] ERRoom: System 3K6SHZZxu: Repository [id number] 08/21/2017 [id number] Emergency [facility] Repository ng:H.ED 08/20/2017/ [id number] Unknown [facility]ulatory [facility] Repository 08/16/2017/ [id number] Unknown Emergency [facility] Repository 08/16/2017 [id number] Unknown [facility]ulatory [facility] Repository 08/15/2017/ [id number] Unknown Emergency [facility] Repository 08/15/2017 [id number] Unknown [facility]ulatory [facility] Repository 08/13/2017/ [id number] Unknown Emergency [facility] Repository 08/11/2017/ [id number] Unknown Emergency [facility] Repository 08/11/2017/ [id number] RIK STERLING Emergency Buildin Carlos Ann 018 DO Room: ERBed: [facility] Repository 08/11/2017 [id number] Emergency BuildinA [facility] EDRoom: 2A System 444Bed: Repository [id number] 08/10/2017 [id number] Emergency [facility]in[facility] ERRoom: System [id number]: Repository [id number] 08/09/2017/ [id number] Zechariah Matthews [address] ding:[facility] System EDRoom: WR Repository 08/07/2017 [id number] Emergency BuildinA [facility] EDRoom: 2A System 444Bed: Repository [id number] 08/05/2017 [id number] Ambulatory [facility] Repository 08/04/2017 [id number] Ambulatory BuildinA [facility] EDRoom: 2A System 444Bed: Repository [id number] 08/01/2017 [id number] Emergency BuildinA [facility] ERRoom: System 4A3OCGVvj: Repository [id number] 07/30/2017 [id number] Ambulatory General acute hospital ding:LAB Repository 07/30/2017 [id number] Ambulatory [facility] Repository 07/26/2017/ [id number] Collette [address] ding:[facility] EDRoom: WR Repository 07/19/2017/ [id number] Ambulatory [address] [place] Repository 07/18/2017/ [id number] Emergency [address] [place] Repository 07/16/2017 [id number] Ambulatory [facility] Repository 07/14/2017 [id number] Emergency BuildinA [facility] EDRoom: 2A System 444Bed: Repository [id number] 07/10/2017/ [id number] Ambulatory [address] Repository 07/09/2017 [id number] Emergency BuildinA [facility] EDRoom: 2A System 444Bed: Repository [id number] 07/05/2017/ [id number] Emergency [facility] ng:G.ED 07/05/2017 [id number] Emergency BuildinA [facility] EDRoom: 2A System 444Bed: Repository [id number] 07/03/2017/ [id number] Emergency BBuilding:ER [address] Repository 07/01/2017/ [id number] Eugenio Tompkins Inpatient [facility] 018 M Encounter [facility] Repository ng:G.5BRoom: 551Bed: 07/01/2017 [id number] Ambulatory [address] [place] [address] Repository 06/28/2017 [id number] Ambulatory [facility] Repository 06/28/2017 [id number] Emergency BuildinA [facility] EDRoom: 2A System 444Bed: Repository [id number] 06/26/2017 [id number] Ambulatory [facility] Repository 06/24/2017 [id number] Emergency BuildinA [facility] EDRoom: 2A System 444Bed: Repository [id number] 06/22/2017 [id number] Emergency BuildinA [facility] EDRoom: 2A System 444Bed: Repository [id number] 06/21/2017 [id number] Ambulatory [facility] Repository 06/18/2017 [id number] Emergency BuildinA [facility] EDRoom: 2A System 444Bed: Repository [id number] 06/18/2017 [id number] Emergency BuildinA [facility] EDRoom: 2A System 444Bed: Repository [id number] 06/16/2017 [id number] Emergency BuildinA [facility] EDRoom: 2A System 444Bed: Repository [id number] 06/14/2017/ [id number] Emergency [address] Repository ng:G.ED 06/14/2017/ [id number] Emergency [address] Repository 06/14/2017 [id number] Ambulatory [address] [place] [address] Repository 06/12/2017 [id number] Emergency BuildinA [facility] EDRoom: 2A System 444Bed: Repository [id number] 06/06/2017/ [id number] [facility] Ambulatory UHCBuilding: [place] [address] [address] Sonam Grimes: [facility] LCIN7Qsr: Repository [id number] 06/06/2017/ [id number] Emergency [place] 018 Clinic Main [place] Repository 06/04/2017/ [id number] Elias, Emergency [address] Regional ding:[facility] System EDRoom: WR Repository 06/04/2017/ [id number] Emergency [place] 018 [facility] Other [place] Repository 06/04/2017 [id number] CARMEN, Ambulatory [facility] Repository 06/03/2017/ [id number] [address] Repository ng:G.ED 06/03/2017 [id number] Ambulatory [address] [place] [address] Repository 06/02/2017/ [id number] Emergency [address] ding:ED Repository 05/31/2017/ [id number] Ambulatory [address] [place] [address] 018 :[facility]oom: [facility] Repository BHER18 05/28/2017/ [id number] Emergency [place] 018 Clinic [place] Repository 05/27/2017/ [id number] Emergency [place] 018 [facility] Other [place] Repository 05/25/2017 [id number] Ambulatory General acute hospital ding:MRI Repository 05/23/2017 [id number] Emergency BuildinA [facility] EDRoom: 2A System 444Bed: Repository [id number] 05/20/2017 [id number] Emergency BuildinA [facility] ERRoom: System 9Z5VHLMfq: Repository [id number] 05/17/2017/ [id number] Emergency ABuilding:[address] Repository 05/12/2017/ [id number] Rings, Emergency [address] Regional ding:[facility] EDRoom: WR Repository 05/10/2017/ [id number] Emergency [place] [address] [facility] ding:ED Repository 05/08/2017/ [id number] Emergency BBuilding:ER [address] Repository 05/06/2017/ [id number] Hannah, Emergency Shinto Shinto 018 Yasmeen A [facility] ding:[facility] EDRoom: WR Repository 05/06/2017/ [id number] Ambulatory [address] [place] Repository 05/05/2017/ [id number] Emergency [address] [place] Repository 05/05/2017/ [id number] Ambulatory [address] Repository PAYERS PAYERS ENCOUNTER GUARANTOR PAYER SUBSCRIBER SOURCE 04/24/2018 OLIVER Panchal Primary OLIVER Panchal [place] [id number] Insurance:MEDICARE DROUHARDDOB: [facility], PART A BPolicy Number: [id number] [facility] Medical [facility] [address]Dhh: [id number] Repository Date:2018-04-24 () 04/24/2018 Secondary OLIVER L [place] Insurance:MEDICAIDPoli DROUHARDDOB: [facility] cy Number: [id number] [facility] [id number] Repository Date:2018-04-24 04/24/2018 Tertiary NOT GIVENUNK Michael Insurance:SELF PAY [facility] Number: Effective Repository Date:2018-04-24 04/21/2018 Oliver L Primary Oliver aPnchal Lost My Name DrouhardDOB: Insurance:MedicarePoli DrouhardDOB: System [id number] cy Number: Effective [id number] [facility], Date: [place] [address]Hyn: () 04/21/2018 Secondary Oliver Panchal [employer] [facility] Insurance:MedicarePoli DrouhardDOB: System cy Number: Effective [id number] Repository Date: 04/19/2018 OLIVER L Primary OLIVER Panchal [facility] [id number] Insurance:MEDICAREPoli DROUHARDS[facility] Geraldine kolby BELL Number: Repository [place] [address]Ahr: [id number] Date:2013-04-08 David FERNANDES () [address]30[address]HGHG CODE [id number], [place] [address]CB: 04/19/2018 OLIVER [facility] OLIVER [facility] DROUHARDDOB: Insurance:MEDICARE DROUHARDDOB: [facility] PART B INSPREMIER [facility] MEDICAL CENTERolicy [id number] Repository DIANNE DOMINIQUE, Number: DIANNE DOMINIQUE [facility] [id number] [address]Zkz: [phone]~SWMVIC@ Date:2018-04-19 [phone] ()Tel: Aditi: [id number] [phone] Name:LEN () () Administrators [address] [address]LQ: 04/17/2018 OLIVER [facility] OLIVER [facility]UHARDD[facility]: Insurance:MEDICARE DROUHARDDOB: [facility] PART B [facility] [id number] Repository DIANNE DOMINIQUE, Number: DIANNE DOMINIQUE [place] [id number] [address]Llo: [phone]~SWIC@ Date:2018-04-17 [phone] ()Tel: Aditi: [phone] [phone] Name:[facility] OKLAHOMA CITYWoody () () Administrators [address] [address]KM: 04/15/2018 OLIVER [facility] DROUHARDDOB: Insurance:MedicarePoli DROUHARDDOB: [facility] cy Number: [id number] Repository DIANNE [id number] [facility] [place] Date:Plan Name:[place] [address]Elp: [address]Itp: [phone] (HP) (HP) 04/15/2018 [facility] Insurance:MedicarePoli DROUHARDDOB: [facility] cy Number: [id number] Repository [id number] include 234 beds at the [facility], Date:Plan Name:[place] [address]Jsm: (HP) 04/13/2018 [address] Panchal Primary [address] [facility] [facility] CenterARD6036 Insurance:MEDICAREPoli DROUHARDUNK [place] ELY RDW[place]ER, cy Number: Repository de [address]Mni: [id number] Date:2013-04-08[address] () [address]VWGE CODE PT903OGDSLHUV, [place] [address]AO: 04/11/2018 OLIVER Panchal [facility]: Insurance:MEDICARE DROUHARDDOB: [facility] B [facility] [id number] [facility], Number: DIANNE DOMINIQUESAINT JOSEPH H[facility]ST [id number] [address]Qck: [phone]~SWMVIC@YA Date:2018-04-11 [phone] (HP)Tel: Aditi: [phone] Name:LEN () () [facility] [address] [address]Qjyysbnqy, [place] [address]GC: 04/09/[address] [facility] CenterARD6036 Insurance:MEDICAREPoli DROUHARDCarlsbad Medical Center [facility]UN[facility], cy Number: Repository de [address]Cva: [id number] Date:2013-04-08[address] () [address]SOJB CODE [id number], [place] [address]ZF: 04/09/2018 Secondary OLIVER [facility] Insurance:MEDICAID OF DROUHARDUNK [facility] [place] OHIOPolicy Number: Repository [id number] Date:[address] [address]OH: 04/07/2018 OLIVER Panchal Primary OLIVER [facility] [id number] Insurance:MEDICAREPoli DROUHARDUNK [facility] [place] ELY RDW[place]ER, cy Number: Repository de [address]Bqm: [id number] Date:2013-04-08P [address]OX (HP) [address]7664ZDCB CODE [id number], [place] [address]SY: 04/07/2018 Secondary OLIVER [facility] Insurance:MEDICAID OF DROUHARDUNK [facility] [place] OHIOPolicy Number: Repository [id number] Date:[address] [address]IP: 04/05/2018 Oliver Panchal Primary [facility] DrouhardDOB: Insurance:MedicareP[facility] Joseph Medical CenteruhardDOB: System cy Number: Effective [id number] [facility], Date: [place] [address]Xko: (ED) 04/05/2018 Secondary Oliver [facility] DrouhardDOB: System cy Number: Effective [id number] Repository Date: 04/03/2018 OLIVER Panchal Primary OLIVER [facility] [id number] Insurance:MEDICAREPoli DROUHARDUNK [facility] [place] ELY RDW[place]ER, cy Number: Repository de [address]Dtj: [id number] Date:2013-04-08P [address] (HP) 703454IMIW CODE [id number] [address]JI: 04/03/2018 Secondary OLIVER [facility] Insurance:MEDICAID OF DROUHARDUNK [facility] [place] OHIOPolicy Number: Repository [id number] Date:1972-35-74[address]AH[place] [address]OE: 03/26/2018 OLIVER Noble [id number] Insurance:MEDICAREPoli DROUHARDUNK [facility] [place] DIANNE ANDUJARBLAINE, Number: Repository de [address]Pgg: [id number] Date:2013-04-08 [address] () [address]BFZO CODE ND871OKDLSRYO, [place] [address]UI: 03/26/2018 Secondary OLIVER [facility] Insurance:MEDICAID OF DROUHARDUNK [place] OHIOPolicy Number: Repository [id number] Date:7965-11-22[address]ISTELh[place] [address]ZK: 03/24/2018 OLIVER [facility]anchal [facility] HospitalUHARDDOB: Insurance:MEDICARE DROUHARDDOB: [facility] [id number] PART B [facility] [id number] Repository DIANNE DOMINIQUE, Number: [facility] DOMINIQUESAINT JOSEPH H[facility]ST [id number]: [phone]~SWMVIC@YA Date:2018-03-24 [phone] ()Tel: Aditi: [phone] Name:LEN () () Administrators [facility] [address] [address]Citxrfand, [place] [address]CP: 03/24/2018 OLIVER Noble [facility] [id number] Insurance:MEDICAREPoli DROUHARDUNK [place] DIANNE DOMINIQUE, Number: Repository de [address]Fbm: [id number] Date:2013-04-08 [address] (HP) 064253POCI CODE KG966OUJVPRPQ, [place] [address]JL: 03/24/2018 Secondary OLIVER [facility] Insurance:MEDICAID OF [place] O[place] Number: Repository [id number] Date:2807-76-99[address], [place] [address]LD: 03/22/2018 OLIVER [id number] Insurance:MEDICAREPoli DROUH[place]UNK [place] [facility], [place] Number: Repository [place] [address]Uku: [id number] Date:2013-04-08P [address]OX () [address]28253DRHB CODE BM422YYTWLCPV, [place] [address]ER: 03/22/2018 Secondary OLIVER [facility] Insurance:MEDICAID OF [place] O[place]olicy Number: Repository [id number] Date:5576-44-80[address] [address]MW: 03/20/2018 OLIVER Noble [id number] Insurance:MEDICAREPoli DROUHARDUNK [place] [facility]NE [facility], [place] Number: Repository de [address]Owe: [id number] Date:2013-04-08P O BOX () 610574XZPZ CODE DM572FJJUXDBO, [place] [address]WZ: 03/20/2018 Secondary OLIVER Noble [facility] Insurance:MEDICAID OF [place] OHI[place]olicy Number: Repository [id number] Date:7024-07-11[address]COLFULTON [place] [address]FI: 03/17/2018 OLIVER [facility]al [facility]: Insurance:MEDICARE DROUHARDDOB: [facility] [id number] PART B [facility]wellspan [facility] [id number] Repository DIANNE ECHEVARRIASARAHRADHA, Number: DI[address] ECHEVARRIAWSSM [facility] [id number] [address]Clv: (872) 21930~SWMVIC@ Date:2018-03-17 [phone] ()Tel: Aditi: [phone] [phone] Name:LEN (WP) () Administrators [address] [address]EH: 03/12/2018 OLIVER Panchal [id number] Insurance:MEDICAREPoli DROUHARDUNK [place], [place] Number: [facility] [address]Rcc: [id number] Date:2013-04-08 [address] () 203665HWPL CODE [id number] [address]OP: 03/12/2018 Secondary OLIVER [facility]al [facility] Insurance:MEDICAID OF [place] O[place]olicy Number: Repository [id number] Date:9015-43-39[address] [address]JC: 03/10/2018 OLIVER Panchal [facility] DROUHARDDOB: Insurance:MEDICARE DROUHARDDOB: [facility] PART B INSCOPolicy [id number] Repository [facility], Number: DI[place]NE ECHEVARRIADEER RIVER HEALTH CARE CENTERBLAINESAINT JOSEPH [facility] [id number] [address]Ccm: ([phone]) 82087~SWMVIC@ Date:2018-03-10 [phone] ()Tel: Aditi: [phone] [phone] Name:LEN (WP) () Administrators [address] [address]BV: 03/05/2018 OLIVER SOLIS [facility] DROUHARDDOB: Insurance:MEDICARE A DROUHARDDOB: [place] AND BPolicy Number: [id number] [facility] DIANNEWISER HOSPITAL FOR WOMEN AND INFANTSWOOGALLUP INDI[facility], [id number] [facility] [address]Mkt: Date:2511-46-11Cfla 69[address]Mjt: (773) Repository Name:[place] [address]Collins[address] () () 03/03/2018 OLIVER Panchal Primary OLIVER [facility] [id number] Insurance:MEDICAREPoli DROUHARDUNK [place], [place] Number: Repository de [address]Hro: [id number] Date:2013-04-08P O BOX () 391303PHRV CODE GI228EPJUKNCZ[place] [address]TC: 03/03/2018 Secondary OLIVER Noble [facility] Insurance:MEDICAID [facility] Number: Repository [id number] Date:8770-36-85FB [address] [address]ZH: 02/26/2018 OLIVER Panchal Primary OLIVER Sagastumeoster [id number] Insurance:MEDICARE DROUHARDDOB: [facility], PART A BPolicy Number: [id number] Indian Medical Center [address]Vhd: [id number] Repository Date:2018-02-26 () 02/26/2018 Secondary OLIVER L [place] [facility] DROUHARDDOB: Community cy Number: [id number] Hospital [id number] Repository Date:2018-02-26 02/26/2018 Tertiary NOT GIVENUNK [place] Insurance:SELF PAY [facility] Number: Effective Repository Date:2018-02-26 02/20/2018 OLIVER Panchal Primary OLIVER Sagastumeoster [id number] Insurance:MEDICARE DROUHARDDOB: [facility], PART A BPolicy Number: [id number] Indian Medical Center [address]Mbb: [id number] Repository Date:2018-02-20 () 02/20/2018 Secondary OLIVER Sagastumeoster Insurance:MEDICAIDPoli DROUHARDDOB: Community cy Number: [id number] Hospital [id number] Repository Date:2018-02-20 02/20/2018 Tertiary NOT GIVENUNK [place] Insurance:SELF PAY [facility] Number: Effective Repository Date:2018-02-20 02/07/2018 OLIVER Panchal Primary OLIVER Noble [facility] [id number] Insurance:MEDICAREPoli DROUHARDUNK [place], [place] Number: Repository de [address]Rly: [id number] Date:2013-04-08P O BOX () 567976XDAY CODE WP562YFOXSYBZ[place] [address]FX: 02/07/2018 Secondary OLIVER Noble Medical Insurance:MEDICAID [facility] Number: Repository [id number] Date:5371-19-09[address] [address]RK: 02/01/2018 OLIVER Panchal Primary OLIVER Rodriguez [id number] Insurance:MEDICARE DROUHARDDOB: [facility], PART A BPolicy Number: [id number] Indian Medical Center [address]Aby: [id number] Repository Date:2018-02-01 () 02/01/2018 Secondary OLIVER Panchal [place] Insurance:MEDICAIDPoli DROUHARDDOB: [facility] cy Number: [id number] Hospital [id number] Repository Date:2018-02-01 02/01/2018 Tertiary NOT GIVENUNK [place] Insurance:SELF PAY [facility] Number: Effective Repository Date:2018-02-01 02/01/2018 OLIVER Panchal Primary OLIVER Panchal [facility] DROUHARDDOB: Insurance:MEDICARE DROUHARDDOB: [facility] PART BPolicy Number: [id number] [facility], [id number] [facility] Date:2018-02-01 87056Knc: ([phone] 62035~RICHARD@ 2740-16-50Jovo [phone] ()Tel: Aditi: Name:[facility] OK[facility] CITYWoody [phone] Administrators PHILPO (WP) (HP) [address] [place] [address]SC: 01/31/2018 OLIVER L Primary OLIVER Rodriguez [id number] Insurance:MEDICARE DROUHARDDOB: [facility], PART A BPolicy Number: [id number] Indian Medical Center [address]Pot: [id number] Repository Date:2018-01-31 () 01/31/2018 Secondary OLIVER L [place] Insurance:MEDICAIDPoli DROUHARDDOB: [facility] cy Number: [id number] Hospital [id number] Repository Date:2018-01-31 01/31/2018 Tertiary NOT GIVENUNK [place] Insurance:SELF PAY [facility] Number: Effective Repository Date:2018-01-31 01/27/2018 OLIVER L Primary OLIVER Rodriguez [id number] Insurance:MEDICARE DROUHARDDOB: [facility], PART A BPolicy Number: [id number] Indian Medical Center [address]Phy: [id number] Repository Date:2018-01-27 () 01/27/2018 Secondary NOT GIVENUNK Michael Insurance:SELF PAY [facility] Number: Effective Repository Date:2018-01-27 01/26/2018 OLIVER L Primary OLIVER Rodriguez [id number] Insurance:MEDICARE DROUHARDDOB: [facility], PART A BPolicy Number: [id number] Indian Medical Center [address]Uab: [id number] Repository Date:2018-01-26 () 01/26/2018 Secondary OLIVER L Michael Insurance:MEDICAIDPoli DROUHARDDOB: [facility] cy Number: [id number] Hospital [id number] Repository Date:2018-01-26 01/26/2018 Tertiary NOT GIVENUNK Michael Insurance:SELF PAY [facility] Number: Effective Repository Date:2018-01-26 01/21/2018 [facility] DROUHARDDOB: Insurance:MEDICARE DROUHARDDOB: Foundation PART BPolicy Number: [id number] Repository [place], [id number] [place] Date:2018-01-21 18171Grc: ([phone]) 03189~RICHARD@ [id number] [phone] (HP)Tel: Aditi: Name:FREDERICKWoody Administrators LLCPO () (HP) [address]Cvpovorjm, [place] [address]RA: 01/16/2018 OLIVER SALDANA [facility] DROUHARDDOB: Insurance:MEDICAREPoli DROUHARDDOB: Repository cy Number: [id number] [place], [id number] [place], [place] [address]Eeu: Date:4498-39-03KYE J15 [address]Doh: (330) PART A CLAIMSPO [phone] () () 61729DOJSPKBND, [place] [address]LU: 01/14/2018 OLIVER Marte [facility] DROUHARDDOB: Insurance:MEDICARE DROUHARDDOB: [facility] PART BPolicy Number: [id number] Repository [place], [id number] [place] Date:2018-01-14 74[address]Whj: ([phone] 90171~RICHARD@ 3294-97-88Qffh [phone] (HP)Tel: Aditi: Name:LEN Administrators LLCPO (WP) (HP) [address] [address]Ccnygsnfu, [place] [address]OY: 01/06/2018 OLIVER Panchal Primary OLIVER Noble Medical [id number] Insurance:MEDICAREPoli DROUHARDMercy Hospital [facility], [place] Number: Repository de [address]Cjd: [id number] Date:2013-04-08P O BOX (HP) 195222MZBP CODE ZU456EJGQPX[place]IN[place] [address]SS: 01/06/2018 Secondary OLIVER Noble [facility] Insurance:MEDICAID [facility] Number: Repository [id number] Date:8055-09-92[address]COLOKLAHOMA [facility] [place] [address]VQ: 12/30/2017 Oliver Panchal Primary Oliver [facility] DrouhardDOB: Insurance:MedicarePoli DrouhardDOB: System cy Number: Effective [id number] Repository [facility], Date: [place] [address]Usv: () 12/30/2017 Secondary Oliver Meléndeza [facility] Insurance:MedicarePoli DrouhardDOB: System cy Number: Effective [id number] Repository Date: 12/30/2017 Tertiary Oliver Abdulkadir Mel[facility]de[facility] Insurance:MedicaidPoli DrouhardDOB: System cy Number: Effective [id number] Repository Date: 12/27/2017 OLIVER L Primary OLIVER Panchal [place] [id number] Insurance:MEDICARE DROUHARDDOB: [facility], PART A BPolicy Number: [id number] Indian Medical Center [address]Cjj: [id number] Repository Date:2017-12-12 () 12/27/2017 Secondary OLIVER L [place] Insurance:MEDICAIDPoli DROUHARDDOB: Community cy Number: [id number] Hospital [id number] Repository Date:2017-12-12 12/27/2017 Tertiary NOT GIVENUNK Michael Insurance:SELF PAY [facility] Number: Effective Repository Date:2017-12-12 12/25/2017 OLIVER Panchal Primary OLIVER Ann DROUHARDDOB: Insurance:MEDICAID DROUHARDDOB: [facility] [id number] [facility] DIANNE Number: [facility], Repository [place], [place] [id number] [place] [id number]: Date: () 12/14/2017 Oliver Panchal Primary Oliver Sagsatumeoster [id number] Insurance:MEDICARE DrouhardDOB: [facility], PART A BPolicy Number: [id number] Indian Medical Center [address]Oru: [id number] Repository Date:2017-12-14 () 12/14/2017 Secondary Oliver Abdulkadir Michael Insurance:MEDICAIDPoli DrouhardDOB: [facility] cy Number: [id number] Hospital [id number] Repository Date:2017-12-14 12/14/2017 Tertiary NOT GIVENUNK Michael Insurance:SELF PAY [facility] Number: Effective Repository Date:2017-12-14 12/04/2017 OLIVER Panchal Primary OLIVER Panchal [facility] DROUHARDDOB: Insurance:MEDICARE DROUHARDDOB: [facility] PART BPolicy Number: [id number] Repository [facility], [id number] [facility] Date:2017-12-04 883[address]Ylp: ([phone] 96406~SWMVIC@ 6434-17-55Rnut [phone] ()Tel: Aditi: Name:[facility] Administrators LLCPO () (HP) [address] [address]Cppywxual, [place] [address]NZ: 12/03/2017 Olivre Panchal Primary Oliver MeléndezSt. [facility] DrouhardDOB: Insurance:MedicarePoli DrouhardDOB: System cy Number: Effective [id number] Repository [place] [address], Date: [place] [address]Hcg: () 12/03/2017 Secondary Oliver Tellez [facility] Insurance:MedicarePoli DrouhardDOB: System cy Number: Effective [id number] Repository Date: 12/01/2017 OLIVER Panchal Primary OLIVER Panchal [facility] DROUHARDDOB: Insurance:MEDICARE DROUHARDDOB: [facility] PART BPolicy Number: [id number] Repository [place], [id number] [place], [place] Date:2017-12-01 [address]Ceb: [phone] 21582~RICHARD@ 6319-86-17Iqta [phone] ()Tel: HERIBERTO.Marcio: Name:[facility] [phone] Administrators [facility] () () [address] [place] [address]TH: 11/29/2017 Oliver Panchal Primary Oliver Tellez [facility] DrouhardDOB: Insurance:MedicarePoli DrouhardDOB: System cy Number: Effective [id number] Repository [address], Date: [place] [address]Ari: () 11/29/2017 Secondary Oliver Tellez [facility] Insurance:MedicarePoli DrouhardDOB: System cy Number: Effective [id number] Repository Date: 11/29/2017 Oliver L Primary Oliver Rodriguez [id number] Insurance:MEDICARE DrouhardDOB: [facility] [address], PART A BPolicy Number: [id number] [facility] [address]Vxf: [id number] Repository Date:2017-11-29 () 11/29/2017 Secondary Oliver Panchal Michael Insurance:MEDICAIDPoli DrouhardDOB: Community cy Number: [id number] [facility] [id number] Repository Date:2017-11-29 11/29/2017 Tertiary NOT GIVENUNK Michael Insurance:SELF PAY [facility] Number: Effective Repository Date:2017-11-29 11/22/2017 OLIVER Panchal Primary OLIVER [facility] [id number] Insurance:MEDICAREFayette Memorial Hospital AssociationOOGALLUP [facility]DI[facility], cy Number: Repository de [address]Dja: [id number] Date:2013-04-08P O [address]OX () 903182SGHB CODE IH497NRWULDBY[place] [address]LC: 11/22/2017 Secondary OLIVER Noble [facility] Insurance:MEDICAID [facility] Number: Repository [id number] Date:1375-93-91[address], [place] [address]AQ: 11/20/2017 Oliver Panchal Primary Oliver Rodriguez [id number] Insurance:MEDICARE DrouhardDOB: [facility], PART A BPolicy Number: [id number] Indian Medical Center [address]Scg: [id number] Repository Date:2017-11-20 () 11/20/2017 Secondary Oliver Panchal [place] Insurance:MEDICAIDPoli DrouhardDOB: Community cy Number: [id number] Hospital [id number] Repository Date:2017-11-20 11/20/2017 Tertiary NOT GIVENUNK Michael Insurance:SELF PAY [facility] Number: Effective Repository Date:2017-11-20 11/13/2017 Oliver Panchal Primary Oliver Sagastumeoster [id number] Insurance:MEDICARE DrouhardDOB: [facility], PART A BPolicy Number: [id number] Indian Medical Center [address]Rmp: [id number] Repository Date:2017-11-13 () 11/13/2017 Secondary Oliver Panchal Michael Insurance:MEDICAIDPoli DrouhardDOB: Community cy Number: [id number] Hospital [id number] Repository Date:2017-11-13 11/13/2017 Tertiary NOT GIVENUNK [place] Insurance:SELF PAY [facility] Number: Effective Repository Date:2017-11-13 11/08/2017 Oliver Panchal Primary Oliver [facility] DrouhardDOB: Insurance:MedicarePoli DrouhardDOB: System cy Number: Effective [id number] Repository [facility], Date: [place] [address]Vbf: () 11/08/2017 Secondary Oliver [facility] DrouhardDOB: System cy Number: Effective [id number] Repository Date: 11/05/2017 OLIVER Panchal Primary OLIVER [facility] DROUHARDDOB: Insurance:MEDICARE A DROUHARDDOB: Health System AND BPolicy Number: [id number] Repository [facility], [id number] [place] [address]Epe: Date: () 11/05/2017 Secondary OLIVER Gomez [facility] Insurance:[facility] BEREAARDDOB: Health System MEDICAIDPolicy Number: [id number] Repository [id number] Date: 10/29/2017 OLIVER Panhcal Primary OLIVER [facility] [id number] Insurance:MEDICAREPoli DROUHARDUNK [place], [place] Number: Repository de [address]Bso: [id number] Date:2013-04-08P O BOX () 576052FJRO CODE NU216PHAKOWURNOR[place] [address]CD: 10/29/2017 Secondary OLIVER [facility] Insurance:MEDICAID OF DROUHARDUNK [place] OHIOPolicy Number: Repository [id number] Date:8538-46-31MO [address] [address]DZ: 10/27/2017 OLIVER Panchal Primary OLIVER Panchal [facility] DROUHARDDOB: Insurance:MEDICARE DROUHARDDOB: [facility] PART BPolicy Number: [id number] Repository [place]NE [place], [id number] [place], [place] Date:2017-10-27 [address]Vwu: [phone] [phone]~RICHARD@ 3024-53-27Sjvj [phone] (HP)Tel: DEVONion: Name:[facility] Administrators LLCPO (WP) (HP) [address] [address]Ziloowmdi, [place] [address]MP: 10/27/2017 Secondary OLIVER Newtonltman [facility] Insurance:MEDICAID OF DROUHARDDOB: [facility] CenterPoly Number: [id number] Repository [id number] [place], [place] Date:2017-10-27 [address]Zdg: [phone]) [phone] [phone] (HP)Tel: Name:MELANIE WHYTE [address]Odhnevvn, [place] (WP) [address]QD: 10/15/2017 Oliver L Primary Oliver Panchal [facility] DrouhardDOB: Insurance:MedicarePoli DrouhardDOB: System cy Number: Effective [id number] Repository [address] [place], Date: [place] [address]Yta: (HP) 10/15/2017 Secondary Oliver Tellze [facility] Insurance:MedicarePoli DrouhardDOB: System cy Number: Effective [id number] Repository Date: 10/11/2017 Oliver L Primary Oliver Panchal [facility] DrouhardDOB: Insurance:MedicarePoli DrouhardDOB: System cy Number: Effective [id number] Repository [address] [place], Date: [place] [address]Wzr: (HP) 10/11/2017 Secondary Oliver L Geoff [facility] Insurance:MedicarePoli DrouhardDOB: System cy Number: Effective [id number] Repository Date: 10/06/2017 OLIVER [facility] DROUHARDDOB: Insurance:MEDICARE DROUHARDDOB: [facility] PART BPolicy Number: [id number] Repository [place], [id number] [place], [place] Date:2017-10-0602502Hoc: [phone]) 53565~SWMVIC@ 4753-13-16Ivkz [phone] ()Tel: Aditi: Name:LEN Administrators LLCPO (WP) () [address] [place] [address]VM: 10/06/2017 Secondary [facility] Insurance:MEDICAID OF DROUHARDDOB: [facility] Number: [id number] Repository [id number] [place], [place] Date:2017-10-0697659Pnr: [phone] 2735-90-90Swgx [phone] ()Tel: Name:VALARIEFRIEDA KOLEDavid [address], [place] (WP) [address]KA: 10/06/2017 OLIVER NewtonOhio[facility] DROUHARDDOB: Insurance:MEDICARE DROUHARDDOB: [facility] PART BPolicy Number: [id number] Repository [place], [id number] [place], [place] Date:2017-10-0675243Fdo: [phone]) 46395~SWMVIC@ 7130-86-87Ctzv [phone] ()Tel: Aditi: Name:LEN Administrators LLCPO (WP) () [address] [address]Tjgmrluwx, [place] [address]DN: 10/06/2017 Secondary OLIVER Bledsoeman [facility] Insurance:MEDICAID OF DROUHARDDOB: [facility] Number: [id number] Repository [id number] [place], [place] Date:2017-10-06 [address]Hvy: [phone] [phone] ()Tel: Name:MELANIE Fernandes [address]37[address]Diblyqkv, [place] (WP) [address]PP: 10/05/2017 Oliver L Primary Oliver Panchal [facility] DrouhardDOB: Insurance:MedicarePoli DrouhardDOB: System cy Number: Effective [id number] Repository [address], Date: [place] [address]Ibt: () 10/05/2017 Secondary Oliver Panchal [facility] Insurance:MedicarePoli DrouhardDOB: System cy Number: Effective [id number] Repository Date: 10/04/2017 Oliver L Primary Oliver Panchal [facility] DrouhardDOB: Insurance:MedicarePoli DrouhardDOB: System cy Number: Effective [id number] Repository [address], Date: [place] [address]Vqq: () 10/04/2017 Secondary Oliver Panchal [facility] Insurance:MedicarePoli DrouhardDOB: System cy Number: Effective [id number] Repository Date: 09/30/2017 OLIVER L Primary OLIVER Panchal [facility] DROUHARDDOB: Insurance:MEDICARE DROUHARDDOB: [facility] PART BPolicy Number: [id number] Repository [place], [id number] [place], [place] Date:2017-09-30 [address]Yxd: [phone] 59917~RICHARD@ 6372-80-78Bulr [phone] (HP)Tel: Aditi: Name:[facility] CITYWoody Administrators LLC () () [address]Arvwptvpu, [place] [address]HA: 09/30/2017 Secondary OLIVER aPnchal [facility] Insurance:MEDICAID OF DROUHARDDOB: [facility] Number: [id number] Repository [id number] [place], [place] Date:2017-09-30 [address]Wfv: [phone] 4910-42-97Rjms [phone] ()Tel: Name:MELANIE WHYTE [address]Qnbyhlqq, [place] (XV) [address]DN: 09/29/2017 OLIVER Panchal [facility] OLIVER Sternar DROUHARDDOB: Insurance:MEDICARE DROUHARDDOB: [facility] [id number] [facility] DIANNE Number: DI[facility]NE RDDEER RIVER [facility] CARE CENTERST, [place] Repository [place], [place] [id number]: Date:Plan Name: () 09/29/2017 OLIVER [facility] OLIVER [facility] DROUHARDDOB: Insurance:MEDICARE DROUHARDDOB: [facility] BPolicy Number: [id number] Repository [facility] RDDEER R[facility] CARE CENTERST, [id number] [place], [place] Date:2017-09-29 18[address]Lvh: [phone] 80103~SWMVIC@ 2227-63-06Ohcs [phone] ()Tel: Aditi: Name:[facility] Administrators LLCPO (WP) () [address] [address]Tbkmgkitc, [place] [address]NF: 09/29/2017 Secondary OLIVER Newtonltman [facility] Insurance:MEDICAID OF DROUHARDDOB: [facility] Number: [id number] Repository [id number] [place], [place] Date:2017-09-29 [address]Mbw: [phone] [phone] [phone] ()Tel: Name:MELANIE WHYTE [address]Uarvpsqj, [place] (JS) [address]WP: 09/26/2017 OLIVER Primary OLIVER [facility] DROUHARDDOB: Insurance:MEDICARE A DROUHARDDOB: University AND BPolicy Number: [id number] [facility], [id number] [facility] [address]Lxi: Date:1131-03-83Hrcl [address]Ejk: (612) Repository Name:[address] () () 09/26/2017 Oliver Panchal Primary Oliver Panchal [facility] CenteruhardDOB: Insurance:MedicareSaint John'S Saint Francis HospitalardDOB: System cy Number: Effective [id number] [facility]ository [facility], Date: [place] [address]Bdh: () 09/26/2017 Secondary Oliver Panchal [facility] Insurance:[facility] CenteruhardDOB: System cy Number: Effective [id number] Repository Date: 09/24/2017 OLIVER Panchal Primary OLIVER Panchal [id number] Insurance:MEDICAREPoli DROUHARDUNK [place] RDWOOSTER, [place] Number: Repository de [id number]: [id number] Date:2013-04-08[address] () [id number] CODE [id number] [address]TX: 09/24/2017 Secondary OLIVER Panchal [facility] Medical Insurance:MEDICAID OF [facility] Number: Repository [id number] Date:8719-47-42[address]IED[facility] [place] [address]LZ: 09/15/2017 OLIVER Panchal Primary OLIVER Panchal [facility] [id number] Insurance:MEDICAREPoli DROUHARDUNK [place] E[place] RDWOOSTER, [place] Number: Repository de [id number]: [id number] Date:2013-04-08 [address] (HP) [address]JVIE CODE YP710AUTPRGGC, [place] [address]AY: 09/15/2017 Secondary OLIVER Panchal [facility] Medical Insurance:MEDICAID OF [facility] Number: Repository [id number] Date:5419-77-88CQ [address] [address]EL: 09/13/2017 OLIVER L Primary [facility]IVER [facility] Insurance:MEDICARE DROARDDOB: [facility] BPolicy Number: [id number] Repository [address], [id number] [place] Date:2017-09-1335644Jqq: ([phone]) 12157~SWMVIC@ 1224-71-14Kubg08Hqgw [phone] (HP)Tel: DEVONel: Name:[facility] () (HP) [address] [address]Ghzexwaaz, [place] [address]OW: 09/13/2017 Secondary OLIVER Abdulkadir [facility] Insurance:MEDICAID OF [facility] Number: [id number] Repository [id number] [address] [place], [place] Date:2017-09-13 [address]Vcw: [phone] [phone] (HP)Tel: Name:MELANIE WHYTE [address]Whzcdrwt, [place] (WP) [address]KK: 09/03/2017 OLIVER Primary OLIVER Panchal [id number] Insurance:MEDICAREPoli DROUHARDUNK [place], [place] Number: Repository de [address]Oec: [id number] Date:2013-04-08P [address] () 465[address]VOCE CODE JY620WEGKFWFJNOR[place] [address]OW: 09/03/2017 Secondary OLIVER [facility] Insurance:MEDICAID OF DROUHARDUNK [place] OHIOPolicy Number: Repository [id number] Date:2418-23-02[address] [address]IT: 09/01/2017 OLIVER Primary OLIVER [facility] [id number] Insurance:MEDICAREPoli DROUHARDUNK [place], [place] Number: Repository de [address]Pao: [id number] Date:2013-04-08P [address] () 490[address]STZC CODE ZT418QOCSGMWKNOR[place] [address]WM: 09/01/2017 Secondary OLIVER [facility] Insurance:MEDICAID OF DROUHARDUNK [place] OHIOPolicy Number: Repository [id number] Date:9780-91-04WL [address] [address]MO: 08/30/2017 Oliver Panchal Primary Oliver [facility] DrouhardDOB: [facility] DrouhardDOB: System [id number] cy Number: Effective [id number] [facility], Date: [place] [address]Zin: () 08/30/2017 Secondary Oliver [facility] DrouhardDOB: System cy Number: Effective [id number] Repository Date: 08/29/2017 Oliver Panchal Primary Oliver Rodriguez [id number] Insurance:MEDICARE DrouhardDOB: [facility], PART A BPolicy Number: [id number] [facility] [address]Drx: [id number] Repository Date:2017-08-29 () 08/29/2017 Secondary Oliver L Michael Insurance:MEDICAIDPoli DrouhardDOB: Community cy Number: [id number] [id number] Repository Date:2017-08-29 08/29/2017 Tertiary NOT GIVENUNK [place] Insurance:SELF PAY [facility] Number: Effective Repository Date:2017-08-29 08/24/2017 OLIVER Primary OLIVER [facility] [id number] Insurance:MEDICAREPoli DROUHARDUNK [place], [place] Number: Repository de [address]Qbr: [id number] Date:2013-04-08P O [address] () 510[address]TRVY CODE MP426MLCHDSZMNORTH [place] [address]MZ: 08/24/2017 Secondary OLIVER [facility] Insurance:MEDICAID [facility] Number: Repository [id number] Date:5217-86-68RY [address] [address]BE: 08/22/2017 Oliver L Primary Oliver Panchal [facility] DrouhardDOB: Insurance:MedicarePoli DrouhardDOB: System cy Number: Effective [id number] Repository [address], Date: [place] [address]Txz: () 08/22/2017 Secondary Oliver Panchal [facility] Insurance:MedicarePoli DrouhardDOB: System cy Number: Effective [id number] Repository Date: 08/21/2017 OLIVER Primary Insurance:SELF OLIVER [facility] [place] [address]Gqz: Number: Effective Repository Date:SEE () PATIENT/GUARANTORSEE PT/KINZA, de [address]VW: 08/20/2017 OLIVER L Primary OLIVER L [facility] DROUHARDDOB: Insurance:MEDICARE DROUHARDDOB: System PART APolicy Number: [id number] Repository [address], [id number] [address] [place], [place] [address]Cfr: Date:2013-04-08 11822Ocv: [phone] (HP) (HP) 08/20/2017 Secondary OLIVER Panchal [facility] Insurance:FFS-TRADITIO DROUHARDDOB: System NAL MEDICAIDPolicy [id number] Repository Number: [address] [place], [place] [id number] [address]Cbv: (330) Date:2017-08-06 [id number] (HP) 08/16/2017 OLIVER L Primary OLIVER L [facility] DROUHARDDOB: Insurance:MEDICARE DROUHARDDOB: System PART APolicy Number: [id number] Repository [address], [id number] [place], [place] [address]Dhe: Date:2013-04-08 656[address]Huu: [phone] (HP) (HP) 08/16/2017 Secondary OLIVER [facility] Insurance:FFS-TRADITIO DROUHARDDOB: System NAL MEDICAIDPolicy [id number] Repository Number: [address] [place], [place] [id number] [address]Dje: (330) Date:2017-08-06 [id number] (HP) 08/16/2017 OLIVER L Primary OLIVER L [facility] DROUHARDDOB: Insurance:MEDICARE DROUHARDDOB: System PART APolicy Number: [id number] Repository [address], [id number] [address], [place] [address]Cvb: Date:2013-04-08 078[address]Qzz: [phone] (HP) (HP) 08/16/2017 Secondary OLIVER L [facility] Insurance:FFS-TRADITIO DROUHARDDOB: System NAL MEDICAIDPolicy [id number] Repository Number: [address] [place] [id number] [address]Zgs: (330) Date:2017-08-06 [id number] (HP) 08/15/2017 OLIVER L Primary OLIVER L [facility] DROUHARDDOB: Insurance:MEDICARE DROUHARDDOB: System PART APolicy Number: [id number] Repository [address], [id number] [address] [place], [place] [address]Cmt: Date:2013-04-08 16086Wjv: [phone] (HP) (HP) 08/15/2017 Secondary OLIVER L [facility] Insurance:FFS-TRADITIO DROUHARDDOB: System NAL MEDICAIDPolicy [id number] Repository Number: [address] [place] [id number] [address]Mrm: (330) Date:2017-08-06 [id number] (HP) 08/15/2017 OLIVER L Primary OLIVER L [facility] DROUHARDDOB: Insurance:MEDICARE DROUHARDDOB: System PART APolicy Number: [id number] Repository [address], [id number] [address] [place], [place] [address]Kli: Date:2013-04-08 39818Prp: [phone] (HP) (HP) 08/15/2017 Secondary OLIVER L [facility] Insurance:FFS-TRADITIO DROUHARDDOB: System NAL MEDICAIDPolicy [id number] Repository Number: [place], [place] [id number] [address]Rwc: (330) Date:2017-08-06 [id number] (HP) 08/13/2017 OLIVER L Primary OLIVER L [facility] DROUHARDDOB: Insurance:MEDICARE DROUHARDDOB: System PART APolicy Number: [id number] Repository [address], [id number] [place], [place] [address]Oct: Date:2013-04-08 649[address]Tdq: [phone] (HP) (HP) 08/13/2017 Secondary OLIVER Abdulkadir [facility] Insurance:FFS-TRADITIO DROUHARDDOB: System [facility] MEDICAIDPolicy [id number] Repository Number: [place] [place], [place] [id number] [address]Mhx: (330) Date:2017-08-06 [id number] (HP) 08/11/2017 OLIVER Panchal Primary OLIVER Panchal [facility] DROUHARDDOB: Insurance:MEDICARE DROUHARDDOB: [facility] PART APolicy Number: [id number] Repository [address], [id number] [place], [place] [address]Dcr: Date:2013-04-08 15222Dfh: ([phone] (HP) (HP) 08/11/2017 Secondary OLIVER Panchal [facility] Insurance:FFS-TRADITIO DROUHARDDOB: System NAL MEDICAIDPolicy [id number] Repository Number: [place], [place] [id number] [address]Fry: (330) Date:2017-08-06 [phone] (HP) 08/11/2017 OLIVER L Primary OLIVER Ann DROUHARDDOB: Insurance:MEDICARE DROUHARDDOB: [facility] [id number] Hospital DIANNE Number: [place], [place] Repository [address], [place] [id number]: Date:Plan Name: (HP) 08/11/2017 Oliver L Primary Oliver Panchal [facility] DrouhardDOB: Insurance:MedicarePoli DrouhardDOB: System cy Number: Effective [id number] Repository [address], Date: [place] [address]Vnb: () 08/11/2017 Secondary Oliver Mel[facility]de[facility] Insurance:MedicarePoli DrouhardDOB: System cy Number: Effective [id number] Repository Date: 08/10/2017 Oliver L Primary Oliver L [facility] DrouhardDOB: Insurance:MedicarePoli DrouhardDOB: System cy Number: Effective [id number] Repository [address], Date: [place] [address]Xfp: () 08/10/2017 Secondary Oliver Mel[facility]deza [facility] Insurance:MedicarePoli DrouhardDOB: System cy Number: Effective [id number] Repository Date: 08/09/2017 OLIVER L Primary OLIVER Panchal Shinto DROUHARDDOB: Insurance:MedicarePoli DROUHARDDOB: [facility] cy Number: Effective [id number] System [address], Date:2017-08-09 - [place], [place] Repository [place] 0718-02-88Pcgq [address]Gfk: [address]Qzs: Name:CD:[id number] [address]PDOAMQTQXC, [place] ()Tel: (329) () [phone]: () [phone] 08/07/2017 Oliver L Primary Oliver [facility] DrouhardDOB: Insurance:MedicarePoli DrouhardDOB: System cy Number: Effective [id number] Repository [address], Date: [place] [address]Fjr: () 08/07/2017 Secondary Oliver Mel[facility]deza [facility] Insurance:MedicarePoli DrouhardDOB: System cy Number: Effective [id number] Repository Date: 08/05/2017 Oliver L Primary Oliver [facility] DrouhardDOB: Insurance:MedicarePoli DrouhardDOB: System cy Number: Effective [id number] Repository [address], Date: [place] [address]Saw: () 08/05/2017 Secondary Oliver [facility] Insurance:MedicarePoli DrouhardDOB: System cy Number: Effective [id number] Repository Date: 08/04/2017 Oliver L Primary Oliver L [facility] DrouhardDOB: Insurance:MedicarePoli DrouhardDOB: System cy Number: Effective [id number] Repository [address], Date: [place] [address]Sai: () 08/04/2017 Secondary Oliver Mel[facility]deza [facility] Insurance:MedicarePoli DrouhardDOB: System cy Number: Effective [id number] Repository Date: 08/01/2017 Oliver L Primary Oliver [facility] DrouhardDOB: Insurance:MedicarePoli DrouhardDOB: System cy Number: Effective [id number] Repository [address], Date: [place] [address]Lkf: () 08/01/2017 Secondary Oliver Mel[facility]deza [facility] Insurance:MedicarePoli DrouhardDOB: System cy Number: Effective [id number] Repository Date: 08/01/2017 Tertiary Oliver Abdulkadir [facility] Insurance:MedicaidPoli DrouhardDOB: System cy Number: Effective [id number] Repository Date: 07/30/2017 Oliver L Primary Oliver Panchal Michael [id number] Insurance:MEDICARE DrouhardDOB: [facility] A BPolicy Number: [id number] [facility] [place] [address]Qmv: [id number] Repository Date:2017-07-30 (HP) 07/30/2017 Secondary Oliver Abdulkadir Michael Insurance:MEDICAIDPoli DrouhardDOB: Community cy Number: [id number] [facility] [id number] Repository Date:2017-07-30 07/30/2017 Tertiary NOT GIVENUNK Michael Insurance:SELF PAY [facility] Number: Effective Repository Date:2017-07-30 07/30/2017 Oliver Panchal Primary Oliver [facility] DrouhardDOB: Insurance:MedicarePoli DrouhardDOB: System cy Number: Effective [id number] Repository [address], Date: [place] [address]Pef: () 07/30/2017 Secondary Oliver T[facility]z [facility] Insurance:MedicarePoli DrouhardDOB: System cy Number: Effective [id number] Repository Date: 07/26/2017 OLIVER Panchal Primary OLIVER Panchal Shinto DROUHARDDOB: Insurance:MedicarePoli DROUHARDDOB: [facility] cy Number: Effective [id number] System [address], Date:2017-07-26 - [place], [place] Repository [place] 2135-44-29Sixe [address]Mai: [address]Jbi: Name:CD:[id number] [address]NSZHVTVGSGOMAHA, [place] ()Tel: (338) () [phone]: () [phone] 07/16/2017 Oliver Panchal Primary Oliver [facility] DrouhardDOB: Insurance:MedicarePoli DrouhardDOB: System cy Number: Effective [id number] Repository [address], Date: [place] [address]Nng: (HP) 07/16/2017 Secondary Oliver [facility] Insurance:MedicarePoli DrouhardDOB: System cy Number: Effective [id number] Repository Date: 07/14/2017 Oliver Panchal Primary Oliver [facility] DrouhardDOB: Insurance:MedicarePoli DrouhardDOB: System cy Number: Effective [id number] Repository [address], Date: [place] [address]Snn: (HP) 07/14/2017 Secondary Oliver [facility] Insurance:MedicarePoli DrouhardDOB: System cy Number: Effective [id number] Repository Date: 07/09/2017 Oliver Panchal Primary Oliver Tellez [facility] DrouhardDOB: Insurance:MedicarePoli DrouhardDOB: System cy Number: Effective [id number] Repository [address], Date: [place] [address]Bnr: (HP) 07/09/2017 Secondary Oliver [facility] Insurance:MedicarePoli DrouhardDOB: System cy Number: Effective [id number] Repository Date: 07/05/2017 OLIVER Primary OLIVER Kimbrough [id number] Insurance:MEDICAREPoli DROUHEADUNK [facility] ELY cy Number: [address], [place] [id number] Repository [address]Kwa: (342) Date:4850-66-89[phone] () 167343WOMKFZDRIP, [place] [address]YH: 07/05/2017 Secondary OLIVER Kimbrough Insurance:MEDICAID OF DROUHEADUNK [facility] OHIOPolicy Number: [address] [id number] Repository Date:9010-18-18[address], [place] [address]QZ: 07/05/2017 Oliver Panchal Primary Oliver Collins DrouhardDOB: Insurance:MedicarePoli DrouhardDOB: System cy Number: Effective [id number] Repository [address], Date: [place] [address]Ycm: (HP) 07/05/2017 Secondary Oliver [facility] Insurance:MedicarePoli DrouhardDOB: System cy Number: Effective [id number] Repository Date: 07/03/2017 OLIVER Panchal [facility] DROUHARDDOB: Insurance:MEDICARE DROUHARDDOB: Foundation PART BPolicy Number: [id number] Repository [address], [id number] [place], [place] Date:2017-07-03 [address]Srv: [phone] 28898~RICHARD@ [phone] [phone] (HP)Tel: DEVONion: Name:[facility] Administrators LLCPO (WP) (HP) [address] [address]Zfmrzcmpp, [place] [address]ZC: 07/03/2017 Secondary [facility] Insurance:MEDICAID [facility]: [facility] Number: [id number] Repository [id number] [address] [facility] [place] Date:2017-07-03 [address]Hqp: [phone] [phone] (HP)Tel: Name:MELANIE WHYTE [address]Anmxdcyw, [place] (WP) [address]OG: 07/01/2017 OLIVER [facility] [id number] [facility] cy Number: [place], [place] [id number] Repository [address]Olf: (928) Date:3952-85-55NT [phone] (HP) 405736LJPOPDMLEL, [place] [address]HZ: 07/01/2017 [facility] DROUHEADDOB: Insurance:MedicarePoli DROUHEADDOB: Hospitals cy Number: [id number] Repository DI[address] [id number] [place], [place] Date:Plan Name:[place] [address]Kiz: [address]Kld: [phone]) [phone] (HP) (HP) 07/01/2017 Secondary [facility] Insurance:MedicarePoli DROUHEADDOB: Hospitals cy Number: [id number] Repository [id number] [facility], Date:Plan Name:[place] [address]Odw: (HP) 07/01/2017 [facility] Insurance:MedicaidPoli DROUHEADDOB: Hospitals cy Number: [id number] Repository [id number] [facility], Date:Plan Name:Health[place] [address]Pjl: [address], [place] [address]JF: [phone] ([phone] 06/28/2017 Oliver Panchal Primary Oliver [facility] DrouhardDOB: Insurance:MedicarePoli DrouhardDOB: System cy Number: Effective [id number] Repository [address], Date: [place] [address]Jsd: () 06/28/2017 Secondary Oliver [facility] Insurance:MedicarePoli DrouhardDOB: System cy Number: Effective [id number] Repository Date: 06/28/2017 Tertiary Oliver [facility] Insurance:MedicaidPoli DrouhardDOB: System cy Number: Effective [id number] Repository Date: 06/28/2017 Oliver L Primary Oliver [facility] DrouhardDOB: Insurance:MedicarePoli DrouhardDOB: System cy Number: Effective [id number] Repository [address], Date: [place] [address]Blu: (HP) 06/28/2017 Secondary Oliver [facility] Insurance:MedicarePoli DrouhardDOB: System cy Number: Effective [id number] Repository Date: 06/26/2017 Oliver L Primary [facility] DrouhardDOB: Insurance:MedicarePoli DrouhardDOB: System cy Number: Effective [id number] Repository [address], Date: [place] [address]Qjr: () 06/26/2017 Secondary Oliver [facility] Insurance:MedicarePoli DrouhardDOB: System cy Number: Effective [id number] Repository Date: 06/26/2017 Tertiary Oliver [facility] Insurance:MedicaidPoli DrouhardDOB: System cy Number: Effective [id number] Repository Date: 06/24/2017 Oliver L Primary Oliver [facility] DrouhardDOB: Insurance:MedicarePoli DrouhardDOB: System cy Number: Effective [id number] Repository [address], Date: [place] [address]Xfj: (HP) 06/24/2017 Secondary Oliver [facility] Insurance:MedicarePoli DrouhardDOB: System cy Number: Effective [id number] Repository Date: 06/22/2017 Oliver L Primary Oliver [facility] DrouhardDOB: Insurance:MedicarePoli DrouhardDOB: System cy Number: Effective [id number] Repository [address], Date: [place] [address]Bgg: (HP) 06/22/2017 Secondary Oliver [facility] Insurance:MedicarePoli DrouhardDOB: System cy Number: Effective [id number] Repository Date: 06/21/2017 Oliver L Primary Oliver [facility] DrouhardDOB: Insurance:MedicarePoli DrouhardDOB: System cy Number: Effective [id number] Repository [address], Date: [place] [address]Baf: (HP) 06/21/2017 Secondary Oliver [facility] Insurance:MedicarePoli DrouhardDOB: System cy Number: Effective [id number] Repository Date: 06/18/2017 Oliver L Primary [facility] DrouhardDOB: Insurance:MedicarePoli DrouhardDOB: System cy Number: Effective [id number] Repository [address], Date: [place] [address]Ibt: (HP) 06/18/2017 Secondary Oliver [facility] Insurance:MedicarePoli DrouhardDOB: System cy Number: Effective [id number] Repository Date: 06/18/2017 Oliver Panchal Primary Oliver Panchal [facility] DrouhardDOB: Insurance:MedicarePoli DrouhardDOB: System cy Number: Effective [id number] Repository [place] [address], [place]: [place] [address]Aqd: () 06/18/2017 Secondary [facility] Insurance:MedicarePoli DrouhardDOB: System cy Number: Effective [id number] Repository Date: 06/16/2017 Oliver L Primary Oliver Panchal [facility] DrouhardDOB: Insurance:MedicarePoli DrouhardDOB: System cy Number: Effective [id number] Repository [place] [address], Date: [place] [address]Ess: (HP) 06/16/2017 Secondary Oliver [facility]al [facility] Insurance:MedicarePoli DrouhardDOB: System cy Number: Effective [id number] Repository Date: 06/14/2017 OLIVER Primary OLIVER Kimbrough [id number] Insurance:MEDICAREPoli [facility] cy Number: [place], [place] [id number] Repository [address]Wla: 330) Date:8849-67-58[phone] () 081767RIXPPSKSED, [place] [address]TH: 06/14/2017 OLIVER Primary OLIVER Bonifay DROUHEADDOB: Insurance:MedicarePoli DROUHEADDOB: Hospitals cy Number: [id number] Repository [address] [id number] [place], [place] Date:Plan Name:[place] [address]Xbm: [address]Zrg: [phone] (HP) (HP) 06/14/2017 Secondary OLIVER Bonifay Insurance:MedicaidPoli DROUHEADDOB: Hospitals cy Number: [id number] Repository [id number] [address], Date:Plan Name:[facility] [address]Ppr: [address], [place] [address]HW: ([phone]) (HP) [phone] 06/12/2017 Oliver Panchal Primary Oliver Panchal [facility] DrouhardDOB: Insurance:MedicarePoli DrouhardDOB: System cy Number: Effective [id number] Repository [address], Date: [place] [address]Jmm: (HP) 06/12/2017 Secondary Oliver Panchal [facility] Insurance:MedicarePoli DrouhardDOB: System cy Number: Effective [id number] Repository Date: 06/06/2017 OLIVER Primary OLIVER Bonifay DROUHARDDOB: Insurance:MedicarePoli DROUHARDDOB: Hospitals cy Number: [id number] Repository DI[address] [id number] [facility], [place] Date:Plan Name:[facility] [place] [address]Kxg: [address]Olk: [phone]) [phone] (HP) (HP) 06/06/2017 [facility] Insurance:MedicarePoli DROUHARDDOB: Hospitals cy Number: [id number] Repository [id number] [facility], Date:Plan Name:[facility] [place] [address]Uiz: (HP) 06/04/2017 OLIVER L Primary OLIVER Panchal Shinto DROUHARDDOB: Insurance:MedicarePoli DROUHARDDOB: [facility] cy Number: Effective [id number] System [address], Date:2017-06-04 - [place] Repository [place] 9776-09-15Uqfe [address]Mow: [address]Yey: Name:CD:[address]EFOTMSKRSI, [place] ()Tel: (000) (HP) [id number]: WP) [phone] 06/04/2017 Secondary OLIVER Abdulkadir Desai Insurance:MedicaidPoli DROUHARDDOB: [facility] cy Number: Effective [id number] System Date:2017-06-04 [place], [place] Repository 9079-54-91Ixqx [address]Msy: Name:CD:[id number] E [facility] [address] ()Tel: (000) [place], [place] 000[address] () [id number]: 06/04/2017 OLIVER Panchal Primary OLIVER Mirandael Seth DROUHARDDOB: Insurance:MEDICAREPoli DROUHARDDOB: [facility] cy Number: [id number] [facility] [id number] [place], [place] Date:Plan Name:[facility] [id number]: () 06/03/[address] [facility] [id number] Insurance:MEDICAREPoli DR[facility] cy Number: [place], [place] [id number] Repository [address]Ekf: (330) Date:3192-96-67UN [phone] () [address]1101KCYLKMWZGL, [place] [address]BE: 06/03/2017 OLIVER Primary [facility] DROUHEADDOB: Insurance:MedicarePoli DROUHEADDOB: [facility] cy Number: [id number] Repository DIANNE [id number] [place], [place] Date:Plan Name:[facility] [place] [address]Igw: [address]Bdc: [phone] (HP) () 06/03/2017 Secondary OLIVER University Insurance:MedicaidPoli DROUHEADDOB: Hospitals cy Number: [id number] Repository [id number] [facility], Date:Plan Name:[facility] [address]Tnp: [address], [place] [address]QG: ([phone]) (HP) [phone] 06/02/2017 Oliver L Primary Oliver Rodriguez [id number] Insurance:MEDICARE DrouhardDOB[facility], PART A BPolicy Number: [id number] [facility] [place] [address]Xpg: [id number] Repository Date:2017-06-02 (HP) 06/02/2017 Secondary Oliver L Michael Insurance:MEDICAIDPoli DrouhardDOB: [facility] cy Number: [id number] [facility] [id number] Repository Date:2017-06-02 06/02/2017 Tertiary NOT GIV[place]UNK [place] Insurance:SELF PAY [facility] Number: Effective Repository Date:2017-06-02 05/31/2017 OLIVER Primary OLIVER Malik DROUHARDDOB: Insurance:MedicarePoli DROUHARDDOB: [facility] cy Number: [id number] Repository [place] [id number] [place], [place] Date:Plan Name:[facility] [place] [id number]: [id number]: [phone] (HP) 05/31/2017 Secondary OLIVER [employer] Insurance:MedicarePoli DROUHARDDOB: [facility] cy Number: [id number] Repository [id number] [facility], Date:Plan Name:[facility] [place] [address]Rdo: () 05/25/2017 Oliver L Primary Oliver Rodriguez [id number] Insurance:MEDICARE Dr[place]hardD[facility] [address] BPolicy Number: [id number] [facility] [place] [address]Gqy: [id number] Repository Date:2017-05-14 (HP) 05/25/2017 Secondary Oliver Panchal [place] Insurance:MEDICAIDPoli DrouhardDOB: Community cy Number: [id number] [id number] Repository Date:2017-05-14 05/25/2017 Tertiary NOT GIVENUNK Michael Insurance:SELF PAY [facility]: Effective Repository Date:2017-05-21 05/23/2017 Oliver L Primary [facility] DrouhardDOB: Insurance:MedicarePoli DrouhardDOB: System cy Number: Effective [id number] [address], [address]: [place] [address]Cgn: () 05/23/2017 Secondary [facility] Insurance:MedicarePoli DrouhardDOB: System cy Number: Effective [id number] Repository Date: 05/20/2017 Oliver Panchal Primary [facility] DrouhardDOB: Insurance:MedicarePoli DrouhardDOB: System cy Number: Effective [id number] [address], [address]: [place] [address]Dwu: () 05/20/2017 Secondary Oliver [facility] Insurance:MedicarePoli DrouhardDOB: System cy Number: Effective [id number] Repository Date: 05/17/2017 OLIVER Panchal Primary OLIVER Panchal [facility] DROUHARDDOB: Insurance:MEDICARE DROUHARDDOB: Foundation PART BPolicy Number: [id number] [address]ository [address], [id number] [address] Date:2017-05-17Tel: [phone]~RICHARD@ [phone] [phone] ()Tel: Aditi: Name:[facility] [phone] Administrators LLCPO () () [address] [place] [address]AB: 05/12/2017 OLIVER L Primary OLIVER Panchal Shinto DROUHARDDOB: Insurance:MedicarePoli DROUHARDDOB: [facility] cy Number: Effective [id number] System [facility], Date:2017-05-12 - [place], [place] Repository [place] [id number] [id number]: [phone]: Name:[id number] [id number], [place] ()Tel: [phone] HP) [phone]: [phone] 05/10/2017 Oliver L Primary Oliver Rodriguez [id number] Insurance:MEDICARE DrouhardDOB: [facility], PART A BPolicy Number: [id number] [address]Eyw: [id number] Repository Date:2017-05-10 () 05/10/2017 Secondary Oliver L Michael Insurance:MEDICAIDPol DrouhardDOB: Community cy Number: [id number] [id number] Repository Date:2017-05-10 05/10/2017 Tertiary NOT GIVENUNK Michael Insurance:SELF PAY [facility] Number: Effective Repository Date:2017-05-10 05/08/2017 OLIVER L Primary OLIVER Panchal [facility] DROUHARDDOB: Insurance:MEDICARE DROUHARDDOB: [facility] PART BPolicy Number: [id number] Repository [facility], [id number] [facility] Date:2017-05-08 [address]Okf: [phone]~SWJOSEF@ [phone] [phone] ()Tel: Aditi: Name:PCGS Administrators LLCPO (WP) (HP) [address] [address], [place] [address]UG: 05/06/2017 OLIVER Panchal Shinto DROUHARDDOB: Insurance:MedicarePolCoxHealthARDDOB: [facility] [id number] cy Number: Effective [id number] System [address], Date:2017-05-06 - [place]ository [place] [id number] [id number]: [phone]: Name:CD:[id number], [place] (HP)Tel: [phone] ([phone]: () [phone]
== END 2018-04-24 10:09 | disposition home or self-care (01) ==
PROVIDERS: Emergency Provider Emergency Medicine
DX: R07.89 Other chest pain (principal); R10.30 Lower abdominal pain, unspecified; G89.29 Other chronic pain; Z72.0 Tobacco use
CPT/HCPCS: 71045; 80048; 84484; 85025; 85379; 93005; 96360; 96361; 99285; J7030; A4216

== ENCOUNTER → 2018-05-08 14:32 | Outpatient (CLI) | payer MEDICARE, SELFPAY ==
[2018-04-24 07:53] VITALS: BMI 26.0
--- NOTE | 2018-05-08 14:37 | CT_ITS ---
STUDY: CTA ABDOMEN AND PELVIS WITH AND WITHOUT CONTRAST REASON FOR EXAM: Male, 58 years old. Abdominal pain RADIATION DOSAGE (If Supplied By Facility): CTDIvol = ( 18.04 ) mGy, DLP = ( 1573.62 ) mGycm TECHNIQUE: Transaxial images were obtained from the dome of the diaphragm to the symphysis pubis without oral contrast. 100 ml of Isovue 370 contrast was administered. Sagittal and coronal images were reconstructed. 3-D images were reconstructed. Individualized dose optimization techniques were used for this CT. COMPARISON: CT December 14, 2017. FINDINGS: The visualized lung bases are unremarkable. The visualized portions of the heart are within normal limits. Normal liver. There are surgical clips in the gallbladder fossa consistent with a prior cholecystectomy. Normal spleen. Normal pancreas. Normal bilateral adrenal glands. Normal right kidney. There is 2.2 cm cyst of the left kidney. Normal visualized stomach. Normal small intestine. Normal colon. The appendix is visualized and appears normal. There is diffuse atherosclerotic calcification of the abdominal aorta, without a demonstrated aneurysm. Normal celiac and superior mesenteric and inferior mesenteric arteries. There is mild plaque of the right renal artery. Normal left renal artery. There is plaque of the iliac arteries with mild to moderate narrowing of the right internal iliac artery. Normal inferior vena cava. Normal retroperitoneum. Normal urinary bladder. There is no free fluid in the abdomen or pelvis. There is stable postoperative change of the lower abdominal wall in the region of hernia repair. Mild degenerative changes of the spine. CT/CT ANGIO ABD&PEL W/O&W/DYE IMPRESSION: Atherosclerosis. No aneurysm or dissection. Stable postoperative changes of the lower abdominal wall. Electronically Signed: Froilan Valles MD at 11:34 EST , Service support ,
== END ==
PROVIDERS: Referring Provider Surgery Vascular Surgery; Visit Provider Surgery Vascular Surgery
DX: R10.9 Unspecified abdominal pain (principal); I70.213 Atherosclerosis of native arteries of extremities with intermittent claudication, bilateral legs
CPT/HCPCS: 74174; Q9967

== ENCOUNTER 2018-06-03 14:19 | Emergency (ER) | payer MEDICARE, SELFPAY ==
[2018-06-03 14:20] VITALS: BP 150/98; PULSE 112; RESP 18; TEMP 36.6; O2SAT 98; BMI 25.9
--- NOTE | 2018-06-03 15:39 | ED.DCSUM_ITS ---
- ER Visit Summary Date of Service: 06/03/18 Chief Complaint: Abdominal pain History of Present Illness: The patient is a 58 M who presents with lower abdominal pain that has been constant for the past 2 years. Patient states that he had herniorrhaphy surgery 2 years ago and had mesh placed at that time. Patient states the mesh was placed in his iliac arteries and the mesh is now adhered to his iliac arteries. Patient states he saw a surgeon who did a laparoscopy to notice the adhesions to the iliac arteries. Patient states he was then referred to a vascular surgeon. Patient states the vascular surgeon does not want to do surgery at this time. Patient admits to some nausea and vomiting. Patient states she has vomited twice today. Patient denies any hematemesis or coffee-ground emesis. Patient denies any diarrhea, melena, or hematochezia. Patient denies any dysuria or hematuria. Physical Examination: Vital signs are stable except for mild tachycardia of 112. Patient is afebrile. Patient is in no acute distress. Oral mucosa is pink and moist. Neck is supple. Trachea is midline. There is no JVD noted. Heart was regular rate and rhythm. Lungs are clear and equal bilateral. Abdomen is soft. Bowel sounds are normal. There is lower abdominal tenderness. There is no rebound or guarding noted. Skin is warm dry. Cranial nerves II through XII are intact. There are no focal motor or sensory deficits noted. The remaining physical exam is within normal limits. Test Results: Patient had a recent CTA of the abdomen so I did not repeat CT scan today. CBC, comprehensive metabolic profile, lipase, and urinalysis were obtained and were all within normal limits. Acute abdominal x-rays were obtained. There is no acute pathology noted. Emergency Department Course and Treatment: Patient was given IV fluids here. Patient felt better on reevaluation. Patient was instructed to follow-up with his primary care physician and surgeon as scheduled. Patient understood and was agreeable with the plan. All questions were answered. Disposition: Discharge home Impression: Abdominal pain This note was generated with [employer] dictation software. It may contain incorrect words, spelling, and punctuation that were not noted in review of the chart prior to signing ED Disposition - Plan for ED Patient: Disposition: Home or Assisted Living Diagnosis: Abdominal pain Instructions: ED Abdominal Pain Unkn Cause Referrals: Care Physician,No Primary [Primary Care Provider] -
[2018-06-03] MEDS: 0.9% Normal Saline 1,000 ML 1000 ML IV (15:42)
[2018-06-03 15:44] LABS: Absolute Lymphocyte Count 1.34 X10^3/ul (0.83-4.51); Absolute Neutrophil Count 4.8 X10^3/uL (2.0-7.7); Basophil# 0.02 X10^3/uL; Basophil% 0.3 % (0-1); Eosinophil# 0.05 X10^3/uL; Eosinophils% 0.7 % (0-5); Hematocrit 45.5 % (40-54); Hemoglobin 15.3 g/dl (13.0-16.5); Lymphocyte # 1.34 X10^3/ul (4.0); Lymphocyte % 19.5 % (19-41); Mean Corp Hgb Conc 33.6 g/gl (32-36); Mean Corpuscular Hgb 33.3 pg (27.0-32.0); Mean Corpuscular Volume 99.1 fL (80-94); Mean Platelet Vol. 8.6 fl (6.2-12.0); Monocyte# 0.62 X10^3/uL; Neutrophil # 4.81 X10^3/uL (2.7-7.7); Neutrophil % 70.2 % (47-70); Platelet Count 284 K/mm3 (150-450); RBC Distribution Width CV 12.4 % (11.6-14.6); RBC Distribution Width SD 44.7 fl (35.1-43.9); Red Blood Count 4.59 M/mm3 (4.6-6.2); White Blood Count 6.9 K/mm3 (4.4-11.0)
--- NOTE | 2018-06-03 15:46 | RAD_ITS ---
STUDY: X-RAY - ACUTE ABDOMINAL SERIES REASON FOR EXAM: Male, 58 years old. Abdominal pain TECHNIQUE: Single view of the chest. Supine, view(s) of the abdomen were obtained. COMPARISON: CT 05/08/2018. FINDINGS: The lungs are clear and expanded. Normal size heart. Normal mediastinum and zachary. Normal visualized pulmonary arteries. Normal visualized aortic arch and descending thoracic aorta. There is a mild to moderate colonic fecal load.. The soft tissue structures of the abdomen and pelvis are unremarkable. Normal visualized osseous structures. There are metallic surgical clips within the right upper quadrant from prior cholecystectomy. There are surgical metallic coils/clips in the pelvis. RAD/Acute Abdomen Inc Chest IMPRESSION: Postsurgical changes Mild to moderate colonic fecal load Electronically Signed: Teto Holland, at 16:33 EST Tel , Service support ,
[2018-06-03 15:56] LABS: POSITIVE COUNT NO; POSITIVE DIFFERENTIAL NO; POSITIVE MORPHOLOGY NO
[2018-06-03 16:02] LABS: AST(SGOT) 17 U/L (15-37); Alanine Aminotransfer ALT/SGPT 31 U/L (16-61); Albumin, Serum 3.6 g/dL (3.2-5.0); Alkaline Phosphatase 63 U/L (45-117); Anion Gap 5 (5-15); BUN 8 mg/dL (7-18); BUN/Creat Ratio 10.9 RATIO (10-20); Calcium,Total 8.4 mg/dL (8.5-10.1); Chloride 105 mmol/L (98-107); Creatinine, Serum 0.74 mg/dL (0.70-1.30); EST Glomerular Filtration Rate 116 mL/min (>60); Est Glom Filt Rate - Afr Amer 141 mL/min (>60); Globulin 3.5 g/dL (2.2-4.2); Glucose 99 mg/dL (74-106); Lipase 108 U/L (73-393); Potassium 3.9 mmol/L (3.5-5.1); Protein, Total 7.1 g/dL (6.4-8.2); Sodium Level 138 mmol/L (136-145)
[2018-06-03 16:13] LABS: Bacteria 0 SEEN /hpf (None Seen); Mucous, Urine 0 SEEN /hpf (<or=2+); Red Blood Cells-Urine 0 SEEN /hpf (0-5); Squamous Epithelial Cells - UA 0 SEEN /hpf (0-5); White Blood Cells 0 SEEN /hpf (0-5)
[2018-06-03 16:16] LABS: Color, Urine Yellow (Yellow); Glucose, Dipstick Normal (Normal); Ketone-Dipstick Negative (Negative); Leukocyte Esterase-Dipstick Negative /ul (Negative); Nitrite-Dipstick Negative (Negative); Occult Blood-Urine Negative /ul (Negative); Protein-Dipstick Negative (Negative); Urine Bilirubin Dipstick Negative (Negative); Urine Clarity Clear (Clear); Urine Urobilinogen Normal (Normal)
[2018-06-03 16:48] VITALS: RESP 18
== END 2018-06-03 17:34 | disposition home or self-care (01) ==
PROVIDERS: Emergency Provider Emergency Medicine
DX: R10.30 Lower abdominal pain, unspecified (principal); G35 Multiple sclerosis; Z72.0 Tobacco use; Z79.51 Long term (current) use of inhaled steroids; Z79.82 Long term (current) use of aspirin; Z79.899 Other long term (current) drug therapy
CPT/HCPCS: 74022; 80053; 81001; 83690; 85025; 96360; 96361; 99283; A4216

== ENCOUNTER 2018-07-10 13:24 | Emergency (ER) | payer MEDICARE, SELFPAY ==
[2018-07-10 13:26] VITALS: BP 139/90; PULSE 112; RESP 17; TEMP 36.9; O2SAT 96; BMI 25.4
--- NOTE | 2018-07-10 13:57 | EKG12_ITS ---
Test Reason : CP Blood Pressure : / mmHG Vent. Rate : 100 BPM Atrial Rate : 100 BPM P-R Int : 114 ms QRS Dur : 098 ms QT Int : 360 ms P-R-T Axes : 079 088 066 degrees QTc Int : 464 ms Normal sinus rhythm Normal ECG Confirmed by AMANDA ESPAÑA, ARLEN ([id number]), city editor EVERARDO LINO ([id number]) on 07/14/2018 10:49:52 AM Referred By: ANDREW Confirmed By:ARLEN PATEL MD
--- NOTE | 2018-07-10 13:58 | ED.VIS.GEN ---
History of Present Illness Chief Complaint: Abd Pain Detail of Chief Complaint: Adverse reaction to MS medication and dyspnea and GU and syncope Informant: Patient Onset: Month(s) Context: Sudden Onset Timing: Continuous - Dyspnea is continuous and abdominal pain is continuous, Intermittent - Syncope Quality: Abdominal pain secondary to mesh and MS medication Location: Numerous symptoms read narrative Current Severity: Unable to determine Maximum Severity: Severe Worsened by: MS medication per patient Relieved by: Nothing Associated Symptoms: Dyspnea, dyspnea on exertion and syncope Narrative: Patient is a middle-aged male who looks much older than reported age. He has tobacco staining of his facial hair and multiple digits. He reports bilateral inguinal pain secondary to mesh growing into his arteries. He has seen a vascular surgeon, Dr. Ovalle, who is uncertain what to do. Patient also attributes his abdominal pain, dyspnea, dyspnea on exertion and syncope to his MS medication, Aubagio. Patient reports shortness of breath after walking 10 feet. He states he has not showered in days. He reports that he lives with his father. Prior similar symptoms: Yes Recent Illness/Hospitalization: No - Past Medical History (1) Cervical spinal stenosis Status: Acute (2) COPD Status: Chronic (3) GERD (gastroesophageal reflux disease) Status: Chronic (4) HTN (hypertension) Status: Chronic (5) Hyperlipidemia Status: Chronic (6) Multiple sclerosis Status: Chronic Past Medical History - Allergies and Home Meds Allergies/Adverse Reactions: Allergies citalopram hydrobromide [From Celexa] Allergy (Verified 07/10/18 13:26) itches bones colesevelam HCl [From WelChol] Allergy (Verified 07/10/18 13:26) pain dicyclomine HCl [From Bentyl] Allergy (Verified 07/10/18 13:26) shut off bowels duloxetine HCl [From Cymbalta] Allergy (Verified 07/10/18 13:26) tickle around heart glatiramer acetate [From Copaxone] Allergy (Verified 07/10/18 13:26) Rash meloxicam [From Mobic] Allergy (Verified 07/10/18 13:26) bones itch metoclopramide [From Reglan] Allergy (Verified 07/10/18 13:26) Chest tightness naproxen Allergy (Verified 07/10/18 13:26) Itching Penicillins Allergy (Verified 07/10/18 13:26) Rash rifaximin [From Xifaxan] Allergy (Verified 07/10/18 13:26) Chest tightness azithromycin Adverse Reaction (Verified 07/10/18 13:26) Other fenofibrate Adverse Reaction (Verified 07/10/18 13:26) PAIN gemifloxacin mesylate [From Factive] Adverse Reaction (Verified 07/10/18 13:26) Other hydrochlorothiazide Adverse Reaction (Verified 07/10/18 13:26) Other DIZZINESS magnesium Adverse Reaction (Verified 07/10/18 13:26) STOMACH PAIN pregabalin [From Lyrica] Adverse Reaction (Verified 07/10/18 13:26) WEAKENED NECK ranitidine Adverse Reaction (Verified 07/10/18 13:26) TEARS UP STOMACH sulfamethoxazole [From Bactrim] Adverse Reaction (Verified 07/10/18 13:26) Other tamsulosin [From Flomax] Adverse Reaction (Verified 07/10/18 13:26) MAKES MY CHEST TIGHT teriflunomide [From Aubagio] Adverse Reaction (Verified 07/10/18 13:26) Other CLOGS ARTERIES trimethoprim [From Bactrim] Adverse Reaction (Verified 07/10/18 13:26) Other Primary Care Physician: [facility] Doctor,Out of [Primary Care Provider] - Prior records reviewed: Yes Surgical History: - - T+A, Cholecystectomy, Umbilical hernia repair, BL rotator cuff repair, multiple spinal injections, Back and Neck surgery. Lives: With Family Smoking Status: Current every day smoker Alcohol: None - Family History Maternal Family History: Reports: - - Mother with history of lung and brain cancer. Paternal Family History: Reports: Heart Disease, - - History of premature coronary artery disease diagnosed in his father at age 50 Review of Systems General: Denies: Chills, Fever, Sweats Eyes: Denies: Visual changes - bilaterally, Diplopia ENT: Denies: Rhinorrhea, Sore throat Cardiovascular: Denies: Chest pain, Palpitations Respiratory: Reports: Dyspnea, Dyspnea on exertion. Denies: Cough, Orthopnea, Paroxysmal nocturnal dyspnea Gastrointestinal: Reports: Abdominal pain, Nausea. Denies: Vomiting, Diarrhea, Constipation, Melena, Hematochezia Genitourinary: Denies: Dysuria, Hematuria, Frequency Musculoskeletal: Denies: Back pain, Extremity Pain Skin: Denies: Rash, Wounds Neurological: Reports: Weakness. Denies: Headache, Parasthesia, Numbness Hematologic: Denies: Easy bruising, Easy bleeding Allergy: Denies: Uticaria, Swelling of the mouth Physical Exam Vital Signs/Narrative: Vital Signs Temp Pulse Resp BP Pulse Ox 07/10/18 13:26 98.5 F 112 H 17 139/90 H 96 General: Well nourished, Well developed, Unkempt, No Acute Distress Head: Normocephalic, Atraumatic Eyes: Perrl, EOMI. Negative for: Pale conjunctiva, Scleral icterus ENT: Moist mucous membranes, No rhinorrhea Neck: Supple, Nontender, No lymphadenopathy, No JVD Cardiovascular: Regular rate, Regular rhythm, No murmurs, Normal S1, Normal S2 Respiratory: No distress, CTA bilaterally, Chest nontender, Decreased Air Movement Abdomen: Soft, Nontender, Nondistended, Normal bowel sounds, No masses. Negative for: Hepatomegaly, Splenomegaly, Mass, Pulsatile mass, Ventral hernia, Inguinal hernia Back: Nontender, Normal Inspection. Negative for: CVA tenderness, Spinal tenderness Extremities: Nontender, No edema, - - Radial pulse is 2+ and symmetric. DP and PT pulse are palpable but diminished, 1+. Clubbing of fingers noted. Skin: Normal color, No rash, No Trauma. Negative for: Cyanosis, Jaundice Neurological: Alert, Oriented x3, Cranial nerves II-XII grossly intact, Normal Strength, Normal Sensation, Normal DTR Psychological: Normal affect, Normal Mood Diagnostic/Tx/Re-eval Chest X-Ray - ED: 2 View, Read by ED Physician, Normal, Heart, Mediastinum, Bony Structures, No Acute Disease, Chronic Changes, - - There is evidence of hyperaeration and unchanged from prior x-ray. 07/10/18 14:33 Chest PA and Lateral [RAD] Stat Laboratory Results 07/10/18 07/10/18 14:25 14:25 WBC 8.2 RBC 4.92 Hgb 16.1 Hct 45.7 MCV 92.9 MCH 32.7 H MCHC 35.2 RDW 12.1 RDW Differential 41.2 Plt Count 245 MPV 8.9 Immature Gran % (Auto) 0.100 Neut % (Auto) 73.8 H Lymph % (Auto) 18.2 L [place] % (Auto) 7.5 Eos % (Auto) 0.2 Baso % (Auto) 0.2 Absolute Neuts (auto) 6.1 Absolute Lymphs (auto) 1.50 Total Counted Not Reportable Sodium 136 Potassium 3.4 L Chloride 102 Carbon Dioxide 26.0 Anion Gap 8 BUN 5 L Creatinine 0.65 L Estim Creat Clear Calc 133.54 Est GFR (MDRD) Af Amer 163 Est GFR (MDRD) Non-Af 135 BUN/Creatinine Ratio 7.7 L Glucose 118 H Calcium 8.2 L Troponin I < 0.015 - Rhythm Strip Rhythm Strip: Sinus Rhythm Rate: 95 Ectopy: None - EKG Initial EKG Interpretation: Sinus Rhythm - Ventricular rate is 100. CA interval, Q zoroastrianism, QT interval and axis are normal. EKG is normal. - Medical Decision Making To evaluate patient's constellation of symptoms electrode panel was obtained to assess renal function, CO2 and electrolytes. CBC to assess white count and H&H. EKG to assess for cardiac ischemia and dysrhythmia since he is reporting syncopal episodes.. Ambulatory pulse ox. He was referred to palliative care February 2018. He did not keep his appointment. He is agreeable at this point to follow-up with palliative care and his primary care physician. He is frustrated because no one will operate on him with regards to the mesh and his vessels. ED Disposition - Plan for ED Patient: Disposition: Home or Assisted Living Diagnosis: Chronic bilateral lower abdominal pain, Tobacco use, Chronic constipation, Multiple sclerosis Instructions: ED Chronic Pain Management Referrals: [facility] Doctor,Out of [Primary Care Provider] - Additional Instructions: Follow-up with your primary care physician and keep appointment with palliative care
--- NOTE | 2018-07-10 14:33 | RAD_ITS ---
STUDY: X-RAY CHEST REASON FOR EXAM: Male, 58 years old. Dyspnea and cough. History of emphysema. TECHNIQUE: PA and lateral views of the chest. COMPARISON: None. FINDINGS: Hyperinflation. Once again, there is evidence of decreased bilateral bronchovascular markings suggestive of emphysematous change. There is no demonstrated pleural abnormality. Normal size heart. Normal mediastinum and zachary. Normal visualized pulmonary arteries. Normal visualized aortic arch and descending thoracic aorta. Normal visualized thoracic spine. Normal visualized ribs, clavicles, and shoulders. There is no demonstrated abnormality of the visualized soft tissue structures of the upper abdomen. RAD/Chest PA and Lateral IMPRESSION: Hyperinflation. Electronically Signed: Neftali Hernandez, at 15:13 EDT , Service support ,
[2018-07-10 14:41] LABS: Absolute Neutrophil Count 6.1 X10^3/uL (2.0-7.7); Basophil# 0.02 X10^3/uL; Basophil% 0.2 % (0-1); Eosinophil# 0.02 X10^3/uL; Eosinophils% 0.2 % (0-5); Hematocrit 45.7 % (40-54); Hemoglobin 16.1 g/dl (13.0-16.5); Lymphocyte % 18.2 % (19-41); Mean Corp Hgb Conc 35.2 g/gl (32-36); Mean Corpuscular Hgb 32.7 pg (27.0-32.0); Mean Corpuscular Volume 92.9 fL (80-94); Mean Platelet Vol. 8.9 fl (6.2-12.0); Monocyte# 0.62 X10^3/uL; Monocyte% 7.5 % (0-10); Neutrophil # 6.07 X10^3/uL (2.7-7.7); Neutrophil % 73.8 % (47-70); Platelet Count 245 K/mm3 (150-450); RBC Distribution Width CV 12.1 % (11.6-14.6); RBC Distribution Width SD 41.2 fl (35.1-43.9); Red Blood Count 4.92 M/mm3 (4.6-6.2); White Blood Count 8.2 K/mm3 (4.4-11.0)
[2018-07-10 14:42] LABS: POSITIVE COUNT NO; POSITIVE DIFFERENTIAL NO; POSITIVE MORPHOLOGY NO
[2018-07-10 14:56] LABS: Anion Gap 8 (5-15); BUN 5 mg/dL (7-18); BUN/Creat Ratio 7.7 RATIO (10-20); Calcium,Total 8.2 mg/dL (8.5-10.1); Chloride 102 mmol/L (98-107); Creatinine, Serum 0.65 mg/dL (0.70-1.30); EST Glomerular Filtration Rate 135 mL/min (>60); Est Glom Filt Rate - Afr Amer 163 mL/min (>60); Estimated Creatinine Clearance 133.54 ml/min; Glucose 118 mg/dL (74-106); Potassium 3.4 mmol/L (3.5-5.1); Sodium Level 136 mmol/L (136-145)
[2018-07-10 15:01] VITALS: PULSE 91; RESP 17; O2SAT 97
--- NOTE | 2018-07-10 15:55 | CM.ED ---
SOCIAL WORK NOTE REFERRAL FROM DR. MORALES MET WITH PATIENT IN ROOM. PATIENT ALERT AND ORIENTED. INTRODUCED ROLE AND REASON FOR REFERRAL. PATIENT PRESENTED TO THE ED WITH ABDOMINAL PAIN. PATIENT REPORTS HAS HAD ISSUES WITH MESH IN HIS STOMACH AND NO SURGEON WITH CORRECT THE ISSUES HE IS HAVING. PATIENT STATES HX OF MS AND COPD. IN REVIEWING PATIENTS PREVIOUS VISITS A REFERRAL TO PALLIATIVE CARE WAS MADE BY [facility] ON 02/26/18. PATIENT STATES NEVER MET WITH PALL CARE HE HAD A DOCTOR'S APPOINTMENT ON THE DAY THEY ATTEMPTED TO COMPLETE CONSULT. EDUCATION PROVIDED ON PALLIATIVE CARE AND PATIENT IN AGREEMENT WITH ANOTHER REFERRAL. PATIENT STATES LIVES HOME WITH FATHER IN A 1 STORY HOME AND DENIES ANY DME. PATIENT STATES FOLLOWS WITH DR. DOMI LIRA IN [place] FOR PRIMARY CARE. INFORMED PATIENT THIS WORKER WILL MAKE REFERRAL TO PALLIATIVE CARE THIS DAY AND THEY WILL BE IN CONTACT WITH PATIENT. CONTACT INFORMATION AND BROCHURE PROVIDED TO PATIENT ON PALLIATIVE CARE SERVICES. DR. MORALES IN AGREEMENT WITH REFERRAL TO PALLIATIVE CARE. CALL TO [facility]. DISCUSSED REFERRAL AND PREVIOUS REFERRAL. CLINICAL DOCUMENTATION ON DEMOGRAPHICS TO BE FAXED TO [phone]. PLAN: HOME WITH PALLIATIVE CARE REFERRAL TO [facility]. CHRISTINA GUSMAN, DOOR AND ARRIVAL ATTENDANT, NUCLEAR POWER PLANT ENGINEER.
[2018-07-10 16:40] VITALS: PULSE 84; RESP 17
--- NOTE | 2018-07-15 11:36 | CM.ED ---
SOCIAL WORK NOTE CALL FROM AGUSTINA AT [facility] STATING THAT THEY HAD RECEIVED A REFERRAL FOR PALLIATIVE CARE ON THIS PT AND HE HAS NOT ANSWERED ANY OF THEIR SEVERAL PHONE CALLS. REPORTS THAT PER THEIR DOCUMENTATION IT APPEARS A REFERRAL WAS MADE ON HIM IN fall AND THEY HAD THE SAME RESULT OF THE PT NOT ANSWERING THEIR PHONE CALLS OR BEING A NO SHOW FOR SCHEDULED MEETINGS. AT THIS TIME THEY ARE UNABLE TO PURSUE THIS REFERRAL D/T THE PT'S UNWILLINGNESS TO ENGAGE. BEVERLEY Tran, DHRUV
== END 2018-07-10 16:40 | disposition home or self-care (01) ==
PROVIDERS: Emergency Provider Emergency Medicine
DX: R10.30 Lower abdominal pain, unspecified (principal); K59.00 Constipation, unspecified; G35 Multiple sclerosis; J44.9 Chronic obstructive pulmonary disease, unspecified; K21.9 Gastro-esophageal reflux disease without esophagitis; I10 Essential (primary) hypertension; F17.200 Nicotine dependence, unspecified, uncomplicated; E78.5 Hyperlipidemia, unspecified; Z79.51 Long term (current) use of inhaled steroids; Z79.899 Other long term (current) drug therapy
CPT/HCPCS: 71046; 80048; 84484; 85025; 93005; 99284; A4216

== ENCOUNTER 2018-08-05 12:16 | Emergency (ER) | payer MEDICARE, SELFPAY ==
[2018-08-05 12:17] VITALS: BP 175/97; PULSE 98; RESP 18; TEMP 36.6; O2SAT 99; BMI 25.2
[2018-08-05 12:22] VITALS: BP 175/97; PULSE 100; RESP 16; RESP 17; TEMP 36.6; O2SAT 98
[2018-08-05] MEDS: 0.9% Normal Saline 1,000 ML 1000 ML IV (12:55)
[2018-08-05] MEDS: Ondansetron 4 MG/2 ML Vial IV (12:56)
[2018-08-05 13:11] LABS: Basophil# 0.01 X10^3/uL; Basophil% 0.1 % (0-1); Eosinophil# 0.03 X10^3/uL; Eosinophils% 0.3 % (0-5); Hematocrit 48.5 % (40-54); Hemoglobin 16.9 g/dl (13.0-16.5); Lymphocyte % 23.9 % (19-41); Mean Corp Hgb Conc 34.8 g/gl (32-36); Mean Corpuscular Hgb 32.8 pg (27.0-32.0); Mean Corpuscular Volume 94.2 fL (80-94); Mean Platelet Vol. 9.1 fl (6.2-12.0); Monocyte# 0.95 X10^3/uL; Monocyte% 10.3 % (0-10); Neutrophil # 5.98 X10^3/uL (2.7-7.7); Neutrophil % 65.2 % (47-70); Platelet Count 261 K/mm3 (150-450); RBC Distribution Width CV 12.5 % (11.6-14.6); RBC Distribution Width SD 42.8 fl (35.1-43.9); Red Blood Count 5.15 M/mm3 (4.6-6.2); White Blood Count 9.2 K/mm3 (4.4-11.0)
[2018-08-05 13:12] LABS: POSITIVE COUNT NO; POSITIVE DIFFERENTIAL NO; POSITIVE MORPHOLOGY NO
[2018-08-05 13:30] LABS: ALB/GLOB Ratio 1.2 RATIO (0.9-2.4); AST(SGOT) 17 U/L (15-37); Alanine Aminotransfer ALT/SGPT 28 U/L (16-61); Alkaline Phosphatase 66 U/L (45-117); Anion Gap 5 (5-15); BUN 10 mg/dL (7-18); BUN/Creat Ratio 12.8 RATIO (10-20); Calcium,Total 8.4 mg/dL (8.5-10.1); Chloride 102 mmol/L (98-107); Creatinine, Serum 0.78 mg/dL (0.70-1.30); EST Glomerular Filtration Rate 109 mL/min (>60); Est Glom Filt Rate - Afr Amer 132 mL/min (>60); Estimated Creatinine Clearance 111.29 ml/min; Globulin 3.3 g/dL (2.2-4.2); Glucose 134 mg/dL (74-106); Lipase 120 U/L (73-393); Potassium 3.1 mmol/L (3.5-5.1); Protein, Total 7.3 g/dL (6.4-8.2); Sodium Level 138 mmol/L (136-145)
[2018-08-05 13:46] VITALS: BP 145/90; PULSE 79; RESP 16; TEMP 36.8; O2SAT 98
--- NOTE | 2018-08-05 13:53 | ED.DCSUM_ITS ---
History of Present Illness Chief Complaint: General Illness Informant: Patient Onset: Days - 2 Narrative: Presents ED for nausea vomiting past 2 days. Unable to keep fluids down. No fevers. No diarrhea. Positive flatus. Bowel movement this morning. Reports his been having symptoms for over 2 years since his inguinal hernia repair bilaterally at [place] by Dr. Gonzalez. He reports he has abnormal feelings 3 days later, he went back to his surgeon, however nothing was done about this. He is been having on and off nausea and vomiting since then. Has Zofran at home which normally does not work. Reports his past March he did see surgeon Dr. garcia at [facility] had a laparoscopic evaluation noting additional hernias and reported scarring around his arteries. Referred to vascular surgery for repair, he states he seen [facility] 6 weeks ago and was told nobody would do anything for this. also reports has seen vascular surgeon here Dr. Guillen in the past. Reports he has been trying and will awaiting another referral by his PCP. Reports continued intermittent pain in the groin region. No urinary symptoms. Prior similar symptoms: Yes Past Medical History - Allergies and Home Meds Allergies/Adverse Reactions: Allergies citalopram hydrobromide [From Celexa] Allergy (Verified 07/10/18 13:26) itches bones colesevelam HCl [From WelChol] Allergy (Verified 07/10/18 13:26) pain dicyclomine HCl [From Bentyl] Allergy (Verified 07/10/18 13:26) shut off bowels duloxetine HCl [From Cymbalta] Allergy (Verified 07/10/18 13:26) tickle around heart glatiramer acetate [From Copaxone] Allergy (Verified 07/10/18 13:26) Rash meloxicam [From Mobic] Allergy (Verified 07/10/18 13:26) bones itch metoclopramide [From Reglan] Allergy (Verified 07/10/18 13:26) Chest tightness naproxen Allergy (Verified 07/10/18 13:26) Itching Penicillins Allergy (Verified 07/10/18 13:26) Rash rifaximin [From Xifaxan] Allergy (Verified 07/10/18 13:26) Chest tightness azithromycin Adverse Reaction (Verified 07/10/18 13:26) Other fenofibrate Adverse Reaction (Verified 07/10/18 13:26) PAIN gemifloxacin mesylate [From Factive] Adverse Reaction (Verified 07/10/18 13:26) Other hydrochlorothiazide Adverse Reaction (Verified 07/10/18 13:26) Other DIZZINESS magnesium Adverse Reaction (Verified 07/10/18 13:26) STOMACH PAIN pregabalin [From Lyrica] Adverse Reaction (Verified 07/10/18 13:26) WEAKENED NECK ranitidine Adverse Reaction (Verified 07/10/18 13:26) TEARS UP STOMACH sulfamethoxazole [From Bactrim] Adverse Reaction (Verified 07/10/18 13:26) Other tamsulosin [From Flomax] Adverse Reaction (Verified 07/10/18 13:26) MAKES MY CHEST TIGHT teriflunomide [From Aubagio] Adverse Reaction (Verified 07/10/18 13:26) Other CLOGS ARTERIES trimethoprim [From Bactrim] Adverse Reaction (Verified 07/10/18 13:26) Other Primary Care Physician: [facility] Doctor,Out of [Primary Care Provider] - Surgical History: - - T+A, Cholecystectomy, Umbilical hernia repair, BL rotator cuff repair, multiple spinal injections, Back and Neck surgery. Smoking Status: Current every day smoker - Family History Maternal Family History: Reports: - - Mother with history of lung and brain cancer. Paternal Family History: Reports: Heart Disease, - - History of premature coronary artery disease diagnosed in his father at age 50 Review of Systems General: Denies: Chills, Fever, Sweats Eyes: Denies: Visual changes - bilaterally, Diplopia ENT: Denies: Rhinorrhea, Sore throat Cardiovascular: Denies: Chest pain, Palpitations Respiratory: Denies: Dyspnea, Cough, Dyspnea on exertion Gastrointestinal: Reports: Nausea, Vomiting Genitourinary: Denies: Dysuria, Hematuria, Frequency Musculoskeletal: Denies: Back pain, Extremity Pain Skin: Denies: Rash, Wounds Neurological: Denies: Headache, Weakness, Numbness Physical Exam Vital Signs/Narrative: Vital Signs Temp Pulse Resp BP Pulse Ox 08/05/18 13:46 98.2 F 79 16 145/90 H 98 08/05/18 12:22 97.9 F 100 16 175/97 H 98 08/05/18 12:17 97.9 F 98 18 175/97 H 99 Inital Vital Signs reviewed: Yes General: Well nourished, Well developed, No Acute Distress Head: Normocephalic, Atraumatic Eyes: Perrl, EOMI ENT: No rhinorrhea, Dry mucous membranes - The hospitalist please make you very much Neck: Supple, Nontender Cardiovascular: Regular rate, Regular rhythm, No murmurs Respiratory: No distress, CTA bilaterally, Chest nontender Abdomen: Soft, Nontender, Nondistended, Normal bowel sounds Back: Nontender, Normal Inspection Extremities: Nontender, No edema Skin: Normal color, No rash Neurological: Alert, Oriented x3, Cranial nerves II-XII grossly intact, Normal Strength, Normal Sensation Psychological: Normal affect, Normal Mood Diagnostic/Tx/Re-eval Abnormal Lab Results 08/05/18 08/05/18 12:25 12:25 WBC 9.2 RBC 5.15 Hgb 16.9 H Hct 48.5 MCV 94.2 H MCH 32.8 H MCHC 34.8 RDW 12.5 RDW Differential 42.8 Plt Count 261 MPV 9.1 Immature Gran % (Auto) 0.200 Neut % (Auto) 65.2 Lymph % (Auto) 23.9 [place] % (Auto) 10.3 H Eos % (Auto) 0.3 Baso % (Auto) 0.1 Absolute Neuts (auto) 6.0 Absolute Lymphs (auto) 2.20 Total Counted Not Reportable Sodium 138 Potassium 3.1 L Chloride 102 Carbon Dioxide 31.0 Anion Gap 5 BUN 10 Creatinine 0.78 Estim Creat Clear Calc 111.29 Est GFR (MDRD) Af Amer 132 Est GFR (MDRD) Non-Af 109 BUN/Creatinine Ratio 12.8 Glucose 134 H Calcium 8.4 L Total Bilirubin 0.70 AST 17 ALT 28 Alkaline Phosphatase 66 Total Protein 7.3 Albumin 4.0 Globulin 3.3 Albumin/Globulin Ratio 1.2 Lipase 120 - Medical Decision Making Patient with a nonsurgical abdomen. Vomiting mild dry mucosal membranes. He has bowel sounds bowel movement this morning, low clinical suspicion for bowel obstruction. Labs are stable except for potassium 3.1. Given fluids, IV antiemetics. On reevaluation symptoms were improving. Oral potassium replacement, p.o. challenge. He will follow-up outpatient with his PCP and his surgeon for further management. Prescription for Phenergan to use as needed. All questions were answered. ED Disposition - Plan for ED Patient: Disposition: Home or Assisted Living Diagnosis: Nausea and vomiting, Hypokalemia Instructions: ED Nausea Vomiting Prescriptions: proMETHazine tablet [Phenergan] 25 mg PO Q6H PRN PRN #10 tablet PRN Reason: Nausea Referrals: [facility],Out of [Primary Care Provider] - 3-5 Days
[2018-08-05 14:54] VITALS: BP 123/91; PULSE 79; RESP 15; O2SAT 98
== END 2018-08-05 14:55 | disposition home or self-care (01) ==
PROVIDERS: Emergency Provider Emergency Medicine
DX: R11.2 Nausea with vomiting, unspecified (principal); E87.6 Hypokalemia; F17.200 Nicotine dependence, unspecified, uncomplicated
CPT/HCPCS: 80053; 83690; 85025; 96361; 96374; 99285; J7030; A4216; J2405

== ENCOUNTER 2018-09-28 17:18 | Emergency (ER) | payer MEDICARE, SELFPAY ==
[2018-09-28 17:19] VITALS: BP 146/97; PULSE 125; RESP 20; TEMP 36.6; O2SAT 97; BMI 25.5
--- NOTE | 2018-09-28 17:42 | ED.DCSUM_ITS ---
- ER Visit Summary Date of Service: 09/28/18 Chief Complaint: I feel like a prior surgery is making me sick History of Present Illness: The patient is a 58 M history of COPD and hypertension. Patient's had hernia repair with mesh in his lower abdomen. Patient firmly believes and has had extensive work-ups regarding this that a hernia repair with mesh in the past is making him sick. He had a recent surgery done by a general surgeon in [place] but they told him they were unable to remove the mesh due to vascular involvement. Patient had multiple emergency department visits for this. Complains of nausea but no vomiting or diarrhea. He has Zofran at home. He denies any fever or weight change. No dysuria. No melena. Physical Examination: Middle-aged male. Disheveled appearance. Extremely long nails. Long hair of the tongue. Vital signs are stable afebrile. H EENT exam unremarkable. Neck nontender no lymphadenopathy. Lungs clear to auscultation bilaterally. Coarse breath sounds consistent with COPD. Heart regular rate and rhythm no murmur. Abdomen is soft and nontender. He has a well-healing lower abdominal laparoscopic incision in the suprapubic area. Patient moving all 4 extremities. Neurovascularly intact. Back nontender. Neurologically is awake and alert. Test Results: None. I reviewed patient's multiple prior other ER visits he has had multiple unremarkable CAT scans of his abdomen and lab work. I do not feel anything is necessary today. Emergency Department Course and Treatment: I think a lot of this is involved with anxiety that the patient has and not a true medical emergency. Treatment Plan: Zofran for nausea. Follow-up with his primary care physician. Stop smoking. Disposition: Discharge Impression: Acute nausea Anxiety This note was generated with Sandglaz dictation software. It may contain incorrect words, spelling, and punctuation that were not noted in review of the chart prior to signing ED Disposition - Plan for ED Patient: Referrals: [facility] Doctor,Out of [Primary Care Provider] -
--- NOTE | 2018-09-28 17:45 | ED.DEP ---
ED Disposition - Plan for ED Patient: Disposition: Home or Assisted Living Instructions: VOMITING (7y-Adult) Referrals: [facility],Out of [Primary Care Provider] - 3-5 Days Additional Instructions: Your home Zofran as needed for nausea. Follow-up your primary care physician.
== END 2018-09-28 17:58 | disposition home or self-care (01) ==
LOC: ED 17:51
PROVIDERS: Emergency Provider Emergency Medicine
DX: R11.0 Nausea (principal); F41.9 Anxiety disorder, unspecified; J44.9 Chronic obstructive pulmonary disease, unspecified; I10 Essential (primary) hypertension; Z72.0 Tobacco use
CPT/HCPCS: 99282

== ENCOUNTER 2018-11-22 07:38 | Emergency (ER) | payer MEDICARE, SELFPAY ==
[2018-11-22 07:39] VITALS: BP 146/102; PULSE 110; RESP 20; TEMP 36.1; O2SAT 98; BMI 25.1
--- NOTE | 2018-11-22 08:02 | EKG12_ITS ---
Test Reason : DYSRHYTHMIA Blood Pressure : / mmHG Vent. Rate : 087 BPM Atrial Rate : 087 BPM P-R Int : 130 ms QRS Dur : 092 ms QT Int : 366 ms P-R-T Axes : 079 088 074 degrees QTc Int : 440 ms Normal sinus rhythm with sinus arrhythmia Normal ECG Confirmed by AMANDA ESPAÑA, ARLEN ([id number]), offline editor JULIAN WALTERS ([id number]) on 11/24/2018 12:50:53 PM Referred By: FEDERICO Confirmed By:ARLEN PATEL MD
[2018-11-22 08:15] LABS: Absolute Lymphocyte Count 2.67 X10^3/uL (0.83-4.51); Absolute Neutrophil Count 2.8 X10^3/uL (2.0-7.7); Basophil# 0.04 X10^3/uL; Basophil% 0.6 % (0-1); Eosinophil# 0.11 X10^3/uL; Eosinophils% 1.7 % (0-5); Hematocrit 47.3 % (40-54); Hemoglobin 16.2 g/dL (13.0-16.5); Lymphocyte # 2.67 X10^3/ul (4.0); Lymphocyte % 42.2 % (19-41); Mean Corp Hgb Conc 34.2 g/dL (32-36); Mean Corpuscular Hgb 32.1 pg (27.0-32.0); Mean Corpuscular Volume 93.8 fL (80-94); Monocyte# 0.69 X10^3/uL; Monocyte% 10.9 % (0-10); NRBC Flagged by Analyzer 0 % (0-5); Neutrophil % 44.4 % (47-70); Platelet Count 229 K/mm3 (150-450); RBC Distribution Width CV 11.8 % (11.6-14.6); RBC Distribution Width SD 40.5 fl (35.1-43.9); Red Blood Count 5.04 M/mm3 (4.6-6.2); White Blood Count 6.3 K/mm3 (4.4-11.0)
[2018-11-22] MEDS: 0.9% Normal Saline 1,000 ML 999 ML IV (08:15)
[2018-11-22] MEDS: Ondansetron 4 MG/2 ML Vial IV (08:15)
[2018-11-22 08:33] LABS: AST(SGOT) 9 U/L (15-37); Alanine Aminotransfer ALT/SGPT 18 U/L (16-61); Albumin, Serum 3.9 g/dL (3.2-5.0); Alkaline Phosphatase 71 U/L (45-117); Anion Gap 6 (5-15); BUN 10 mg/dL (7-18); BUN/Creat Ratio 11.2 RATIO (10-20); Bilirubin, Direct 0.11 mg/dL (0.00-0.30); Calcium,Total 8.8 mg/dL (8.5-10.1); Chloride 105 mmol/L (98-107); Creatinine, Serum 0.89 mg/dL (0.70-1.30); EST Glomerular Filtration Rate 93 mL/min (>60); Est Glom Filt Rate - Afr Amer 113 mL/min (>60); Estimated Creatinine Clearance 97.53 ml/min; Globulin 3.6 g/dL (2.2-4.2); Glucose 127 mg/dL (74-106); Lipase 239 U/L (73-393); Potassium 3.5 mmol/L (3.5-5.1); Protein, Total 7.5 g/dL (6.4-8.2); Sodium Level 140 mmol/L (136-145)
--- NOTE | 2018-11-22 09:00 | ED.DCSUM_ITS ---
- ER Visit Summary Date of Service: 11/22/18 Chief Complaint: Abdominal and chest pain History of Present Illness: The patient is a 58 M who tells me that for several years she has had pain in his abdomen that radiates to his chest which she describes as his veins being crushed by the mesh from a prior hernia repair. Tells me he is seen multiple surgeons for this is for this. He tells me he is trying to get be seen by vascular surgery at [facility]. None of his symptoms are new but he tells me that they are worse today. He has had some vomiting. No fevers. He had a CT angiogram of his abdomen in April 2018. This was reviewed. Patient is a poor historian. Patient has had multiple emergency de partment visits for the same. Physical Examination: Afebrile vital signs are stable Gen: Well-nourished well-developed disheveled Head: Normocephalic atraumatic Eyes: Perrl EOMI ENT: TMs clear no rhinorrhea moist mucous membranes Neck: Supple no lymphadenopathy no JVD nontender CVS: Regular rate rhythm no murmurs normal S1-S2 Respiratory: No distress clear to auscultation bilaterally chest nontender Abdomen: Soft nontender nondistended normal bowel sounds no masses Back: Nontender Extremity: Nontender no edema Skin: Normal color no rash Neuro: alert orientated ?3 CN II-XII intact normal strength sensation Psych: Normal affect normal mood Test Results: EKG done through protocol shows a sinus rhythm at a rate of 87. This is unchanged from July 10, 2018. Basic labs showed a glucose of 127 troponin negative. Emergency Department Course and Treatment: Patient received IV fluids and Zofran. At this point I do not see any acute findings. This appears to be acute on chronic issues for the patient. He may follow-up with his doctors. Impression: 1. Chronic abdominal pain 2. Vomiting This note was generated with [employer] dictation software. It may contain incorrect words, spelling, and punctuation that were not noted in review of the chart prior to signing ED Disposition - Plan for ED Patient: Disposition: Home or Assisted Living Instructions: ED Chronic Pain Referrals: [facility] Doctor,Out of [Primary Care Provider] - As soon as possible
[2018-11-22 09:03] VITALS: BP 158/105; PULSE 75; RESP 14; O2SAT 96
[2018-11-22 09:10] VITALS: BP 158/105; PULSE 75; RESP 16; O2SAT 97
== END 2018-11-22 09:11 | disposition home or self-care (01) ==
PROVIDERS: Emergency Provider Emergency Medicine
DX: G89.29 Other chronic pain (principal); R10.9 Unspecified abdominal pain; R11.10 Vomiting, unspecified; J44.9 Chronic obstructive pulmonary disease, unspecified; E11.9 Type 2 diabetes mellitus without complications; I10 Essential (primary) hypertension; G35 Multiple sclerosis; Z72.0 Tobacco use; Z79.51 Long term (current) use of inhaled steroids; Z79.82 Long term (current) use of aspirin; Z79.899 Other long term (current) drug therapy
CPT/HCPCS: 80048; 80076; 83690; 84484; 85025; 93005; 96361; 96374; 99284; J7030; A4216; J2405

== ENCOUNTER 2018-12-27 00:01 | Emergency (ER) | payer MEDICARE, SELFPAY ==
[2018-12-27 00:02] VITALS: BP 125/103; PULSE 92; RESP 16; TEMP 36.6; O2SAT 97; BMI 25.2
--- NOTE | 2018-12-27 01:27 | ED.DCSUM_ITS ---
History of Present Illness Chief Complaint: Lower Extremity Injury Narrative: Patient is a 58-year-old male who presents with artery pain. He complains of chronic right groin pain. He believes this is related to a cardiac catheterization many years ago. He has actually been seen for similar symptoms on multiple occasions. He has seen Dr. Ovalle, vascular surgery here as well as vascular surgery at [facility]. He states they both declined him. He had a CT angiogram of the abdomen pelvis earlier this year which showed no aneurysm. Patient also states that when he had a hernia repair on this side the mesh grew into his arteries. He was seen yesterday at [facility] for this as well. No fevers. No vomiting. No pain radiating down the leg. He describes his pain is burning. Past Medical History - Allergies and Home Meds Allergies/Adverse Reactions: Allergies citalopram hydrobromide [From Celexa] Allergy (Verified 12/27/18 00:06) itches bones colesevelam HCl [From WelChol] Allergy (Verified 12/27/18 00:06) pain dicyclomine HCl [From Bentyl] Allergy (Verified 12/27/18 00:06) shut off bowels duloxetine HCl [From Cymbalta] Allergy (Verified 12/27/18 00:06) tickle around heart glatiramer acetate [From Copaxone] Allergy (Verified 12/27/18 00:06) Rash meloxicam [From Mobic] Allergy (Verified 12/27/18 00:06) bones itch metoclopramide [From Reglan] Allergy (Verified 12/27/18 00:06) Chest tightness naproxen Allergy (Verified 12/27/18 00:06) Itching Penicillins Allergy (Verified 12/27/18 00:06) Rash rifaximin [From Xifaxan] Allergy (Verified 12/27/18 00:06) Chest tightness azithromycin Adverse Reaction (Verified 12/27/18 00:06) Other fenofibrate Adverse Reaction (Verified 12/27/18 00:06) PAIN gemifloxacin mesylate [From Factive] Adverse Reaction (Verified 12/27/18 00:06) Other hydrochlorothiazide Adverse Reaction (Verified 12/27/18 00:06) Other DIZZINESS magnesium Adverse Reaction (Verified 12/27/18 00:06) STOMACH PAIN pregabalin [From Lyrica] Adverse Reaction (Verified 12/27/18 00:06) WEAKENED NECK ranitidine Adverse Reaction (Verified 12/27/18 00:06) TEARS UP STOMACH sulfamethoxazole [From Bactrim] Adverse Reaction (Verified 12/27/18 00:06) Other tamsulosin [From Flomax] Adverse Reaction (Verified 12/27/18 00:06) MAKES MY CHEST TIGHT teriflunomide [From Aubagio] Adverse Reaction (Verified 12/27/18 00:06) Other CLOGS ARTERIES trimethoprim [From Bactrim] Adverse Reaction (Verified 12/27/18 00:06) Other Primary Care Physician: [facility] Doctor,Out of [NON-STAFF] - Surgical History: - - T+A, Cholecystectomy, Umbilical hernia repair, BL rotator cuff repair, multiple spinal injections, Back and Neck surgery. Smoking Status: Current every day smoker - Family History Maternal Family History: Reports: - - Mother with history of lung and brain cancer. Paternal Family History: Reports: Heart Disease, - - History of premature coronary artery disease diagnosed in his father at age 50 Review of Systems All systems negative except as indicated General: Denies: Fever Cardiovascular: Denies: Chest pain Respiratory: Denies: Dyspnea Gastrointestinal: Denies: Vomiting, Diarrhea Musculoskeletal: Reports: - - Right groin pain Physical Exam Vital Signs/Narrative: Vital Signs Temp Pulse Resp BP Pulse Ox 12/27/18 00:02 97.8 F 92 16 125/103 H 97 Inital Vital Signs reviewed: Yes General: Well nourished Head: Normocephalic Eyes: EOMI ENT: Moist mucous membranes Neck: Supple Cardiovascular: Regular rate, Regular rhythm Respiratory: No distress, CTA bilaterally Abdomen: Soft Extremities: - - Active full range of motion of the right hip without pain, easily palpable and strong right femoral pulse skin inspection of the right groin is normal no erythema no abscess no warmth he is neurovascularly intact distally brisk capillary refill normal sensation Skin: Normal color Neurological: Alert Psychological: Normal affect Diagnostic/Tx/Re-eval - Medical Decision Making Patient has been seen for this multiple times. He has seen 2 vascular surgeons. He had a angiogram earlier this year. He has an easily palpable pulse. He does not appear to have any vascular emergency at this time. I explained I do not have anything else I am able to offer him here in the emergency department. This could potentially be related to the mesh from his hernia repair. He was advised to follow-up with general surgery who performed his surgery. Patient discharged. ED Disposition - Plan for ED Patient: Disposition: Home or Assisted Living Diagnosis: Chronic pain of right groin Instructions: ED Chronic Pain Referrals: [facility] Doctor,Out of [NON-STAFF] -
== END 2018-12-27 01:41 | disposition home or self-care (01) ==
PROVIDERS: Emergency Provider Emergency Medicine
DX: R10.31 Right lower quadrant pain (principal); G89.29 Other chronic pain; F17.200 Nicotine dependence, unspecified, uncomplicated
CPT/HCPCS: 99282

== ENCOUNTER 2019-01-22 13:44 | Emergency (ER) | payer MEDICARE, SELFPAY ==
[2019-01-22 13:46] VITALS: BP 169/108; PULSE 97; RESP 18; TEMP 36.8; O2SAT 99; BMI 24.7
--- NOTE | 2019-01-22 13:54 | EKG12_ITS ---
Test Reason : CP Blood Pressure : / mmHG Vent. Rate : 099 BPM Atrial Rate : 099 BPM P-R Int : 132 ms QRS Dur : 092 ms QT Int : 358 ms P-R-T Axes : 077 087 058 degrees QTc Int : 459 ms Normal sinus rhythm Normal ECG Confirmed by PASTORA ESPAÑA, SAVANA ([id number]), newspaper editor EVERARDO LINO ([id number]) on 01/28/2019 10:56:10 AM Referred By: LIN Confirmed By:NICOLE GUILLORY MD
--- NOTE | 2019-01-22 13:54 | RAD_ITS ---
STUDY: X-RAY CHEST REASON FOR EXAM: Male, 58 years old. Chest pain. TECHNIQUE: Single AP portable view of the chest. COMPARISON: Comparison is made with prior study dated July 10, 2018. FINDINGS: EKG electrodes are seen. Hyperinflation. Decreased bronchovascular markings throughout both lungs worse in the right upper lobe suggestive of emphysematous changes. There is no demonstrated pleural abnormality. Normal size heart. Normal mediastinum and zachary. Normal visualized pulmonary arteries. Normal visualized aortic arch and descending thoracic aorta. Normal visualized thoracic spine. Normal visualized ribs, clavicles, and shoulders. There is no demonstrated abnormality of the visualized soft tissue structures of the upper abdomen. RAD/Chest 1 View (Portable) IMPRESSION: Hyperinflation. There has been no change since prior study. Electronically Signed: Neftali Hernandez, at 14:20 EDT , Service support ,
[2019-01-22 14:00] VITALS: O2SAT 98
--- NOTE | 2019-01-22 14:09 | ED.VIS.GEN ---
History of Present Illness Chief Complaint: Chest Pain Informant: Patient Onset: - - 2017 Current Severity: Mild Narrative: Patient presents complaining of an electric metallic sensation shooting through his body since 2017, he also complains of pelvic pain since 2017 when he had abdominal hernia repair with mesh indicates that that mesh caused him to have chronic pelvic pain he was seen by multiple local physicians and was told that the mesh could not be removed because blood vessels had entangled themselves within the mesh and he needed to see a vascular surgeon to have this taken care of He was seen at [facility] by a vascular surgeon 2 months ago, he was told that the procedure to remedy this condition would include general surgery if general surgery had problems with vascular issues vascular surgery would be called in he has not followed back up with the [facility] to have those procedures and coordinated care started Resents complaining of this diffuse sense of metal shooting through his body, persistent pelvic pain, he has no specific chest pain just the generalized pain shooting through his body this is unchanged from what it is been for years he has had no fever no cough he is eating and drinking well bowel bladder habits are normal He indicates he had a cardiac cath of years ago that showed no signs of CAD or blockages, he has MS and at one point time this metallic sensation through shooting through his body was thought to be related to the use of a new MS medication but that medication was discontinued and those sensations persist Past Medical History - Allergies and Home Meds Allergies/Adverse Reactions: Allergies citalopram hydrobromide [From Celexa] Allergy (Verified 01/22/19 13:53) itches bones colesevelam HCl [From WelChol] Allergy (Verified 01/22/19 13:53) pain dicyclomine HCl [From Bentyl] Allergy (Verified 01/22/19 13:53) shut off bowels duloxetine HCl [From Cymbalta] Allergy (Verified 01/22/19 13:53) tickle around heart glatiramer acetate [From Copaxone] Allergy (Verified 01/22/19 13:53) Rash meloxicam [From Mobic] Allergy (Verified 01/22/19 13:53) bones itch metoclopramide [From Reglan] Allergy (Verified 01/22/19 13:53) Chest tightness naproxen Allergy (Verified 01/22/19 13:53) Itching Penicillins Allergy (Verified 01/22/19 13:53) Rash rifaximin [From Xifaxan] Allergy (Verified 01/22/19 13:53) Chest tightness azithromycin Adverse Reaction (Verified 01/22/19 13:53) Other fenofibrate Adverse Reaction (Verified 01/22/19 13:53) PAIN gemifloxacin mesylate [From Factive] Adverse Reaction (Verified 01/22/19 13:53) Other hydrochlorothiazide Adverse Reaction (Verified 01/22/19 13:53) Other DIZZINESS magnesium Adverse Reaction (Verified 01/22/19 13:53) STOMACH PAIN pregabalin [From Lyrica] Adverse Reaction (Verified 01/22/19 13:53) WEAKENED NECK ranitidine Adverse Reaction (Verified 01/22/19 13:53) TEARS UP STOMACH sulfamethoxazole [From Bactrim] Adverse Reaction (Verified 01/22/19 13:53) Other tamsulosin [From Flomax] Adverse Reaction (Verified 01/22/19 13:53) MAKES MY CHEST TIGHT teriflunomide [From Aubagio] Adverse Reaction (Verified 01/22/19 13:53) Other CLOGS ARTERIES trimethoprim [From Bactrim] Adverse Reaction (Verified 01/22/19 13:53) Other Primary Care Physician: [facility] Doctor,Out of [Primary Care Provider] - Surgical History: - - T+A, Cholecystectomy, Umbilical hernia repair, BL rotator cuff repair, multiple spinal injections, Back and Neck surgery. Smoking Status: Current every day smoker - Family History Maternal Family History: Reports: - - Mother with history of lung and brain cancer. Paternal Family History: Reports: Heart Disease, - - History of premature coronary artery disease diagnosed in his father at age 50 Review of Systems General: Reports: - - Whole body pain as above. Denies: Chills, Fever, Sweats Eyes: Denies: Visual changes - bilaterally, Diplopia ENT: Denies: Rhinorrhea, Sore throat Cardiovascular: Denies: Chest pain, Palpitations Respiratory: Denies: Dyspnea, Cough, Dyspnea on exertion Gastrointestinal: Denies: Abdominal pain, Nausea, Vomiting, Diarrhea, Melena, Hematochezia Genitourinary: Denies: Dysuria, Hematuria, Frequency Musculoskeletal: Denies: Back pain, Extremity Pain Skin: Denies: Rash, Wounds Neurological: Denies: Headache, Weakness, Numbness Physical Exam Vital Signs/Narrative: Vital Signs Temp Pulse Resp BP Pulse Ox 01/22/19 13:46 98.2 F 97 18 169/108 H 99 General: Well nourished, Well developed, No Acute Distress Head: Normocephalic, Atraumatic Eyes: Perrl, EOMI ENT: Moist mucous membranes, No rhinorrhea Neck: Supple, Nontender Cardiovascular: Regular rate, Regular rhythm, No murmurs Respiratory: No distress, CTA bilaterally, Chest nontender Abdomen: Soft, Nontender, Nondistended, Normal bowel sounds Back: Nontender, Normal Inspection Extremities: Nontender, No edema Skin: Normal color, No rash Neurological: Alert, Oriented x3, Cranial nerves II-XII grossly intact, Normal Strength, Normal Sensation Psychological: Normal affect, Normal Mood Diagnostic/Tx/Re-eval - Medical Decision Making Patient's EKG shows a sinus rhythm nothing acute his labs x-rays are all unremarkable, he has had multiple visits to the emergency department for this type of processing complaint in the past work-up negative Explained the above differential to him that there is really nothing additional to be done from the emergency department for this sense that he is having electric shock or metallic fragments coursing through his blood and there is no additional therapy available through the emergency department for the chronic pelvic pain he is having related to his abdominal hernia mesh issue he does understand the need to follow-up with his outpatient providers reestablish contact with [facility] providers for the mesh issue chronic pelvic pain he will do so and is comfortable discharge Home stable Final impression Diffuse whole body pain for years, pelvic pain for years ED Disposition - Plan for ED Patient: Instructions: CHEST PAIN, Uncertain Cause Referrals: [facility] Doctor,Out of [Primary Care Provider] -
[2019-01-22 14:13] LABS: Absolute Lymphocyte Count 2.27 X10^3/uL (0.83-4.51); Absolute Neutrophil Count 3.2 X10^3/uL (2.0-7.7); Basophil# 0.05 X10^3/uL; Basophil% 0.8 % (0-1); Eosinophil# 0.13 X10^3/uL; Hemoglobin 16.4 g/dL (13.0-16.5); Lymphocyte # 2.27 X10^3/ul (4.0); Lymphocyte % 35.6 % (19-41); Mean Corp Hgb Conc 32.8 g/dL (32-36); Mean Corpuscular Hgb 32.1 pg (27.0-32.0); Mean Corpuscular Volume 97.8 fL (80-94); Mean Platelet Vol. 8.7 fl (6.2-12.0); Monocyte# 0.66 X10^3/uL; Monocyte% 10.4 % (0-10); NRBC Flagged by Analyzer 0 % (0-5); Neutrophil # 3.23 X10^3/uL (2.7-7.7); Neutrophil % 50.7 % (47-70); Platelet Count 240 K/mm3 (150-450); RBC Distribution Width CV 13.1 % (11.6-14.6); RBC Distribution Width SD 47.3 fl (35.1-43.9); Red Blood Count 5.11 M/mm3 (4.6-6.2); White Blood Count 6.4 K/mm3 (4.4-11.0)
[2019-01-22 14:30] LABS: Anion Gap 5 (5-15); BUN 12 mg/dL (7-18); BUN/Creat Ratio 16.5 RATIO (10-20); Calcium,Total 9.1 mg/dL (8.5-10.1); Chloride 105 mmol/L (98-107); Creatinine, Serum 0.73 mg/dL (0.70-1.30); EST Glomerular Filtration Rate 118 mL/min (>60); Est Glom Filt Rate - Afr Amer 143 mL/min (>60); Estimated Creatinine Clearance 118.91 ml/min; Glucose 109 mg/dL (74-106); Potassium 3.8 mmol/L (3.5-5.1); Sodium Level 141 mmol/L (136-145)
[2019-01-22 14:46] LABS: BNP,B-Type NATRIURETIC PEPTIDE 13.4 pg/mL (0-100)
[2019-01-22 14:57] VITALS: BP 169/108; PULSE 85; O2SAT 96
[2019-01-22 15:20] VITALS: RESP 18
== END 2019-01-22 15:21 | disposition home or self-care (01) ==
LOC: ED 14:03
PROVIDERS: Emergency Provider Emergency Medicine
DX: R10.2 Pelvic and perineal pain (principal); G89.29 Other chronic pain; G35 Multiple sclerosis; F17.200 Nicotine dependence, unspecified, uncomplicated
CPT/HCPCS: 71045; 80048; 83880; 84484; 85025; 93005; 99284; A4216

== ENCOUNTER 2019-02-13 07:10 | Emergency (ER) | payer MEDICARE, SELFPAY ==
[2019-02-13 07:11] VITALS: BP 164/84; PULSE 87; RESP 16; TEMP 36.6; O2SAT 99; BMI 24.4
--- NOTE | 2019-02-13 07:40 | ED.DCSUM_ITS ---
- ER Visit Summary Date of Service: 02/13/19 Chief Complaint: Groin pain History of Present Illness: The patient is a 58 M with groin and lower abdominal pain. The patient has had this pain from years. He says it stems from a cardiac catheterization in his right inguinal region and a subsequent hernia as well as mesh placement. He believes that the mesh grew into his artery and that it is causing metallic fragments to shoot through his bloodstream. He also believes his symptoms are worse from a multiple sclerosis medication called Aubagio that he was on years ago. He has some nausea today but denies any new symptoms. He has had stress testing within the last couple years, imaging of his aorta and iliac arteries. He has had lab work less than a month ago. He saw a vascular surgeon for this at [facility] just a few months ago. He presents today saying he just wants help for the metallic fragments shooting through his bloodstream. Physical Examination: Afebrile and vital signs unremarkable. Alert and oriented. No acute distress. Patient has these persistent thoughts of metallic fragments shooting through his bloodstream, but no other delusions or abnormal thought content. He is not suicidal or homicidal. Head and neck exam unremarkable. Heart regular rate and rhythm. Lungs clear. Abdomen soft and nontender. No guarding or rebound. CVAs nontender. Pulses strong and equal. Good skin color and perfusion. Test Results: None performed Emergency Department Course and Treatment: I spoke with the patient at length. He has no new or different symptoms. No red flag features. I reviewed his extensive and recent evaluations. I advised him that I can help with emergency problems, but I cannot help with chronic issues or surgical issues. He needs to follow-up with his surgeon if he wants mesh removal. This can be arranged as an outpatient. There is no indication for hospitalization here or emergent transfer for this problem. He is not having chest pain or cardiac symptoms. There is no indication for evaluation for this. He has been evaluated in the past and his testing has been unremarkable recently. I advised that I am sorry I cannot solve his issues, but we can help with his symptoms. He was treated with a pain pill and some Zofran. Will prescribe some Zofran for him, and I advised him to follow-up with his outpatient doctors. I advised him that we can perform a medical screening exam, but I do not feel that he needs any further diagnostic testing here today. I do not believe it will provide any further useful information and furthermore could cause harm. Patient voiced understanding. Treatment Plan: As above Disposition: Discharge Impression: 1. Inguinal pain This note was generated with [employer] dictation software. It may contain incorrect words, spelling, and punctuation that were not noted in review of the chart prior to signing ED Disposition - Plan for ED Patient: Referrals: DOIM BERNARD [Other]
--- NOTE | 2019-02-13 07:47 | ED.DEP ---
ED Disposition - Plan for ED Patient: Instructions: ABDOMINAL PAIN, Unkown Cause, (Male) Prescriptions: Ondansetron [Zofran Odt] 4 mg PO Q8H PRN PRN #10 tab PRN Reason: Nausea Prescription Printed Additional Instructions: Follow up with your [facility] doctors and surgeons for this chronic and complex issue
[2019-02-13] MEDS: Ondansetron ODT 4 MG Tablet 8 MG PO (07:48)
[2019-02-13] MEDS: HYDROcodone Bitartrate/Apap 5/325 Tablet PO (07:48)
== END 2019-02-13 08:08 | disposition home or self-care (01) ==
PROVIDERS: Emergency Provider Emergency Medicine
DX: R10.30 Lower abdominal pain, unspecified (principal); G35 Multiple sclerosis; K21.9 Gastro-esophageal reflux disease without esophagitis; I10 Essential (primary) hypertension; Z72.0 Tobacco use; Z79.82 Long term (current) use of aspirin; Z79.899 Other long term (current) drug therapy
CPT/HCPCS: 99283

== ENCOUNTER 2019-02-21 17:35 | Observation (INO) | payer MEDICARE, SELFPAY ==
[2019-02-21] VITALS (7 sets, daily range): BP systolic 123–193; BP diastolic 78–98; PULSE 79–103; RESP 16–18; TEMP 36.6–36.8; O2SAT 95–97; BMI 26.6; BMI 26.3; BMI 26.4
--- NOTE | 2019-02-21 17:43 | EKG12_ITS ---
Test Reason : CP Blood Pressure : / mmHG Vent. Rate : 103 BPM Atrial Rate : 103 BPM P-R Int : 124 ms QRS Dur : 092 ms QT Int : 354 ms P-R-T Axes : 078 088 069 degrees QTc Int : 463 ms Sinus tachycardia Nonspecific ST abnormality Abnormal ECG Confirmed by AMANDA ESPAÑA, ARLEN ([id number]), clinical editor ASHLEY GARCIA ([id number]) on 02/24/2019 11:36:20 AM Referred By: LUIS A Confirmed By:ARLEN PATEL MD
--- NOTE | 2019-02-21 17:43 | RAD_ITS ---
STUDY: X-RAY CHEST REASON FOR EXAM: Male, 58 years old. Chest pain TECHNIQUE: Frontal view of the chest was performed COMPARISON: 22 January 2019 FINDINGS: Lungs are clear. Lungs are hyperinflated, likely small airway disease. There is no pneumothorax, pulmonary edema, pleural effusions or cardiomegaly. Osseous structures are intact. There is no gas under the diaphragms. [ Appearance is similar to prior.] RAD/Chest 1 View (Portable) IMPRESSION: 1. No acute cardiorespiratory disease. [ 2. No change since prior. 3. Hyperinflation, likely mild emphysema. ] Electronically Signed: Gabi Yadav, at 18:25 EST Tel , Service support ,
[2019-02-21] MEDS: Morphine 4 MG/ML Syringe IV ×2 (17:53→20:18)
[2019-02-21] MEDS: Ondansetron 4 MG/2 ML Vial IV (17:53)
[2019-02-21] MEDS: 0.9% Normal Saline 1,000 ML 150 ML IV (17:55)
[2019-02-21 18:27] LABS: Absolute Lymphocyte Count 2.51 X10^3/uL (0.83-4.51); Basophil# 0.05 X10^3/uL; Basophil% 0.5 % (0-1); Eosinophils% 1.1 % (0-5); Hematocrit 47.2 % (40-54); Hemoglobin 16.1 g/dL (13.0-16.5); Lymphocyte # 2.51 X10^3/ul (4.0); Lymphocyte % 26.4 % (19-41); Mean Corp Hgb Conc 34.1 g/dL (32-36); Mean Corpuscular Hgb 31.8 pg (27.0-32.0); Mean Corpuscular Volume 93.3 fL (80-94); Mean Platelet Vol. 9.1 fl (6.2-12.0); Monocyte# 0.85 X10^3/uL; Monocyte% 8.9 % (0-10); NRBC Flagged by Analyzer 0 % (0-5); Neutrophil # 5.98 X10^3/uL (2.7-7.7); Neutrophil % 62.8 % (47-70); Platelet Count 233 K/mm3 (150-450); RBC Distribution Width SD 41.4 fl (35.1-43.9); Red Blood Count 5.06 M/mm3 (4.6-6.2); White Blood Count 9.5 K/mm3 (4.4-11.0)
[2019-02-21 18:35] LABS: D-Dimer Quantitative (DVT/PE) < 0.27 FEU/ug/m (0.27-0.49)
[2019-02-21 18:38] LABS: Anion Gap 9 (5-15); BUN 10 mg/dL (7-18); BUN/Creat Ratio 12.4 RATIO (10-20); Chloride 98 mmol/L (98-107); EST Glomerular Filtration Rate 105 mL/min (>60); Est Glom Filt Rate - Afr Amer 127 mL/min (>60); Estimated Creatinine Clearance 108.51 ml/min; Glucose 115 mg/dL (74-106); Lipase 116 U/L (73-393); Potassium 3.4 mmol/L (3.5-5.1); Sodium Level 137 mmol/L (136-145)
--- NOTE | 2019-02-21 18:45 | ED.VISSUMM ---
- ER Visit Summary Date of Service: 02/21/19 Chief Complaint: [Chest pain] History of Present Illness: The patient is a 58 M [resents to the emergency department complaint of chest pain that started about 2 hours ago. Patient describes it as a tightness and dull ache at times sharp. Patient states the pain radiates into his neck at times and through to his back between shoulder blades. He has had nausea and vomiting with it. [place] diaphoretic and short of breath. Patient has history of hypertension. He denies recent travel or surgery. Denies any fever or cough. Took 3 nitroglycerin tablets at home and did not have any relief with the nitroglycerin. Squad gave patient aspirin.] Physical Examination: [HEENT-PERRLA, EOMI. Cranial nerves II through XII grossly intact. TMs clear. Mucous membranes moist. No adenopathy. Cardiovascular-regular rate and rhythm without murmur or ectopy Lungs-clear to auscultation, chest wall stable without crepitus or subcu emphysema Abdomen-normoactive bowel sounds, soft. Patient has some tenderness in the epigastric region. There is no rebound, rigidity, or perineal signs. Extremities-intact ?4, normal range of motion, normal pulses, atraumatic] Test Results: [EKG obtained arrival shows sinus rhythm with a ventricular rate of 103 bpm with some nonspecific ST changes. CBC with it was normal. Chemistries unremarkable. Troponin is less than 0.15. D-dimer was normal. Lipase was 116. Chest x-ray showed nothing acute.] Emergency Department Course and Treatment: [Patient was medicated with morphine and Zofran.] Treatment Plan: [Admit for further work-up and evaluation] Disposition: [Admit] Impression: [Chest pain-rule out acute coronary syndrome] This note was generated with [employer] software. It may contain incorrect words, spelling, and punctuation that were not noted in review of the chart prior to signing ED Disposition - Plan for ED Patient: Referrals: DOMI BERNARD [Other]
--- NOTE | 2019-02-21 19:45 | EKG12_ITS ---
Test Reason : CP ADMISSION Blood Pressure : / mmHG Vent. Rate : 078 BPM Atrial Rate : 078 BPM P-R Int : 136 ms QRS Dur : 096 ms QT Int : 372 ms P-R-T Axes : 076 088 070 degrees QTc Int : 424 ms Normal sinus rhythm Normal ECG When compared with ECG of 21-FEB-2019 17:37, MANUAL COMPARISON REQUIRED, DATA IS UNCONFIRMED Confirmed by LENNY HERNANDEZ ([id number]), fan mail editor JULIAN WALTERS ([id number]) on 03/03/2019 10:14:56 AM Referred By: LORRAINE Confirmed By:LENNY HERNANDEZ
--- NOTE | 2019-02-21 19:50 | PCM.HP.STD ---
Problem List (1) Chest pain Status: Acute Qualifiers: Chest pain type: precordial pain Qualified Code(s): R07.2 - Precordial pain History of Present Illness Date of Admission: 02/21/19 Chief Complaint: Chest pain, abdominal pain The patient is a 58 year old M who was seen in the emergency room at [facility] after coming in for evaluation with a complaint of pain which started in his mid lower abdomen and radiating into his chest. He states this chest discomfort was pressure in nature, it radiated up into his neck and down his arms. Patient complains that he still having some of it but it is not as bad as it was. Patient has no history of coronary artery disease although he stated he took nitroglycerin at home, when I asked where he got the nitroglycerin, he states that his PCP has prescribed-he does not know the reason why. Patient also went on to say that he has had chronic abdominal pain related to hernia surgery with mesh placement, he also stated that one time he was on MS medications and this caused hardening of the areas where he had the hernia mesh. He is no longer on any MS medication, he states he has not taken any in 2 years. Patient has what appears to be delusional thinking at times when he is talking with me. Patient has no documented heart disease. Work-up in the emergency room included an EKG which showed a normal sinus rhythm without evidence of ischemic changes, chest x-ray showed no acute cardiorespiratory disease, labs were unremarkable except for a potassium of 3.4. Patient will be placed in observation status on PCU, cardiac enzymes will be cycled, if these remain negative, he will need a nuclear stress test performed on 02/23/2019. Past Medical History Past Medical History (Chronic Problems): Chronic Problems Chronic constipation (Chronic) COPD (Chronic) GERD (gastroesophageal reflux disease) (Chronic) Multiple sclerosis (Chronic) Tobacco abuse (Chronic) Hyperlipidemia (Chronic) HTN (hypertension) (Chronic) Allergies citalopram hydrobromide [From Celexa] Allergy (Verified 02/21/19 17:44) itches bones colesevelam HCl [From WelChol] Allergy (Verified 02/21/19 17:44) pain dicyclomine HCl [From Bentyl] Allergy (Verified 02/21/19 17:44) shut off bowels duloxetine HCl [From Cymbalta] Allergy (Verified 02/21/19 17:44) tickle around heart glatiramer acetate [From Copaxone] Allergy (Verified 02/21/19 17:44) Rash meloxicam [From Mobic] Allergy (Verified 02/21/19 17:44) bones itch metoclopramide [From Reglan] Allergy (Verified 02/21/19 17:44) Chest tightness naproxen Allergy (Verified 02/21/19 17:44) Itching Penicillins Allergy (Verified 02/21/19 17:44) Rash rifaximin [From Xifaxan] Allergy (Verified 02/21/19 17:44) Chest tightness azithromycin Adverse Reaction (Verified 02/21/19 17:44) Other fenofibrate Adverse Reaction (Verified 02/21/19 17:44) PAIN gemifloxacin mesylate [From Factive] Adverse Reaction (Verified 02/21/19 17:44) Other hydrochlorothiazide Adverse Reaction (Verified 02/21/19 17:44) Other DIZZINESS magnesium Adverse Reaction (Verified 02/21/19 17:44) STOMACH PAIN pregabalin [From Lyrica] Adverse Reaction (Verified 02/21/19 17:44) WEAKENED NECK ranitidine Adverse Reaction (Verified 02/21/19 17:44) TEARS UP STOMACH sulfamethoxazole [From Bactrim] Adverse Reaction (Verified 02/21/19 17:44) Other tamsulosin [From Flomax] Adverse Reaction (Verified 02/21/19 17:44) MAKES MY CHEST TIGHT teriflunomide [From Aubagio] Adverse Reaction (Verified 02/21/19 17:44) Other CLOGS ARTERIES trimethoprim [From Bactrim] Adverse Reaction (Verified 02/21/19 17:44) Other Home Medications: Ambulatory Orders Medication Instructions Recorded Linaclotide [Linzess] 290 mcg PO DAILY 05/10/17 Albuterol Inhaler [Ventolin Hfa] 1 - 2 puff INHALATION Q4H PRN PRN 11/20/17 #1 inhaler Melatonin 5 mg PO QHS 02/20/18 Aspirin E.C. [Ecotrin] 81 mg PO DAILY 08/05/18 Mirtazapine 30 mg PO QHS 08/05/18 Ondansetron [Zofran Odt] 4 mg PO Q8H PRN PRN #10 tab 02/13/19 Surgical History: - - T+A, Cholecystectomy, Umbilical hernia repair, BL rotator cuff repair, multiple spinal injections, Back and Neck surgery. Psychiatric History: Anxiety Lives: With Family Smoking Status: Current every day smoker Tobacco Use: Cigarettes Alcohol: Rare Drugs: None - *Family History Maternal History Items: - - Mother with history of lung and brain cancer. Paternal History Items: Heart Disease, - - History of premature coronary artery disease diagnosed in his father at age 47 Review of Systems Constitutional: Denies: Anorexia, Chills, Fever, Night Sweats, Malaise, Weakness, Weight Change, Fatigue Eyes: Denies: Cataracts, Conjunctivae Inflammation, Double vision, Drainage HEENT: Denies: Difficulty Swallowing, Dysphasia, Ear Pain, Eye Pain, Hearing Changes, Nasal bleeding, Nasal Congestion, Post Nasal Drip Cardiovascular: Reports: Chest Pain, Chest Pressure. Denies: Claudication, Chest Tightness, Edema, Heaviness, Light Headedness, Orthopnea, Palpitations, Paroxysmal Noc. Dyspnea, Syncope Respiratory: Denies: Cough, Hemoptysis, Pleuritic Pain, Shortness of Breath, Shortness of breath at rest, Shortness of breath upon exertion, Sputum production, Wheezing Gastrointestinal: Reports: Abdominal Pain - he has chronic lower abdominal pain. Denies: Constipation, Diarrhea, Hematemesis, Hematochezia, Nausea, Melena, Vomiting Genitourinary: Denies: Dysuria, Frequency, Hematuria, Hesitancy, Nocturia, Retention, Urgency Musculoskeletal: Denies: Back Pain, Foot Pain, Hand Pain, Joint Pain, Joint stiffness, Joint swelling, Joint Tenderness, Leg Pain Skin: Denies: Dryness, Pruritis, Rash Neurological: Denies: Balance problems, Blurred vision, Double vision, Slurred speech, Difficulty swallowing, Focal weakness, Numbness, Tingling Psychiatric: Denies: Anxiety, Depression, Homicidal Ideations, Suicidal Ideations Endocrine: Denies: Change in Body Habitus, Heat/ Cold Intolerance, Polydipsia, Polyuria Hematologic/ Lymphatic: Denies: Adenopathy, Anemia, Easy Bruising, Easy Bleeding, Petechiae, Purpura VTE Information - Inpt Only VTE Present on Admission: No VTE Mechan Device Prophylaxis: None VTE Pharm Prophylaxis ordered?: Yes - Physical Exam Vitals/I&O's: Vital Signs Temp Pulse Resp BP Pulse Ox 97.8 F 80 18 123/78 H 97 02/21/19 19:43 02/21/19 19:43 02/21/19 19:43 02/21/19 19:44 02/21/19 19:43 Oxygen Delivery Method Room Air Weight: 85.7 kg Body Mass Index (BMI) 26.3 General: Alert, Oriented x3, Cooperative, No apparent distress, Well developed, Well nourished HEENT: Atraumatic, PERRLA, EOMI, Normocephalic Neck: Supple, No JVD, Negative Carotid Bruits, Trachea Midline, Thyroid Normal Size and Texture Lungs: Clear to auscultation, Normal air movement, No rhonchi, No wheeze, No rales Cardiovascular: Regular rate, Regular Rhythm, Normal S1, Normal S2, No murmurs Abdomen: Bowel Sounds Present, Soft, Non Tender, Non-Distended Extremities: No clubbing, No cyanosis, No edema, Capillary Refill Less than 3 Seconds Skin: No rashes, No breakdown Musculoskeletal: No Tenderness to Palpation of Joints or Extremities Neurological: Cranial nerves II-XII grossly intact, Neuro grossly intact, Sensory exam intact to light touch and pain, Coordination normal Psych/Mental Status: Normal Affect, Appropriate, Alert and oriented to time, place, person, mood and affect Laboratory Results 02/21/19 17:50: WBC 9.5, RBC 5.06, Hgb 16.1, Hct 47.2, MCV 93.3, MCH 31.8, MCHC 34.1, RDW Std Deviation 41.4, RDW Coeff of Genesis 12.0, Plt Count 233, MPV 9.1, Immature Gran % (Auto) 0.300, Neut % (Auto) 62.8, Lymph % (Auto) 26.4, [place] % (Auto) 8.9, Eos % (Auto) 1.1, Baso % (Auto) 0.5, Absolute Neuts (auto) 6.0, Absolute Lymphs (auto) 2.51, Nucleated RBC % 0 02/21/19 17:50: D-Dimer Quant (PE/DVT) < 0.27 L 02/21/19 17:50: Sodium 137, Potassium 3.4 L, Chloride 98, Carbon Dioxide 30.0, Anion Gap 9, BUN 10, Creatinine 0.80, Estim Creat Clear Calc 108.51, Est GFR (MDRD) Af Amer 127, Est GFR (MDRD) Non-Af 105, BUN/Creatinine Ratio 12.4, Glucose 115 H, Calcium 9.0, Troponin I < 0.015, Lipase 116 Current Medications Aspirin (Ecotrin) 81 mg PO DAILYCM [facility] Heparin Sodium (Porcine) (Heparin Na) 5,000 unit SC Q12 [facility] Sodium Chloride () 250 mls @ 15 mls/hr IV .[id number] PRN PRN Reason: Saline Flush Melatonin (Melatonin) 5 mg PO QHS [facility] Mirtazapine (Remeron) 30 mg PO QHS [facility] Morphine Sulfate () 4 mg IV Q3H PRN PRN PRN Reason: Pain Score 6-10/10 Ondansetron HCl (Zofran) 4 mg IV Q8H PRN PRN PRN Reason: NAUSEA/VOMITING Sodium Chloride () 10 - 40 ml IV UD PRN PRN Reason: SALINE FLUSH Assessment/Plan All Active Problems Chest pain (Acute) #1 chest pain-to this examiner, his complaints of chest discomfort seem not typical of coronary pain. Patient will be placed in observation status on PCU, enzymes will be cycled, if these remain negative patient will need a nuclear stress test ordered on 02/23/2019 to rule out coronary artery disease. I do not feel patient needs an echocardiogram #2 hypokalemia-patient will be given oral potassium #3 chronic lower abdominal pain-I had a long discussion with the patient concerning this, he states he has been sent to [facility] [place] for evaluation but they would not see him because my physician did not send the paperwork down there concerning my case. I have reviewed the patient's medical record. He has been seen multiple times in the emergency room for abdominal pain. Again, patient seems to feel that his abdominal pain is related to a medication that was given to him for MS that he has not taken in 2 years. #4 essential hypertension #5 chronic obstructive pulmonary disease Again, it is unknown to me why the patient would have nitroglycerin at home if he has no history of coronary artery disease. Patient states he has had a cardiac catheterization in the past but could not give me any details concerning this. Patient's last stress test his medical record was in 2017 that was normal and showed a preserved ejection fraction. Code Visit OBSV E&M: 06945 Initial observation care L3
[2019-02-21] MEDS: 0.9% Saline Lock 10 ML Syringe IV (20:17)
[2019-02-21] MEDS: MELATONIN 10 MG TABLET 5 MG PO (22:22)
[2019-02-21] MEDS: Heparin Injection (Vial) 5,000 UNIT/ML VIAL 5000 UNIT SC (22:22)
[2019-02-21] MEDS: Mirtazapine 30 MG Tablet PO (22:22)
[2019-02-22] VITALS (9 sets, daily range): BP systolic 101–129; BP diastolic 59–79; PULSE 70–89; RESP 14–18; TEMP 36.5–36.7; O2SAT 95–96
[2019-02-22] MEDS: Heparin Injection (Vial) 5,000 UNIT/ML VIAL 5000 UNIT SC ×3 (08:18→22:05)
[2019-02-22] MEDS: Aspirin E.C. 81 MG Tablet PO (08:18)
[2019-02-22] MEDS: Morphine 4 MG/ML Syringe IV (10:22)
--- NOTE | 2019-02-22 13:35 | PN_ITS ---
Subjective: Follow-up when chest pain: Patient was seen and examined. Patient recounts a long and convoluted story starting 3 years ago with bilateral inguinal hernia repair with mesh because he was on Aubagio in an experimental stages. Patient feels that his arteries have been hurting as a result of the side effects of this medication which he was told. He subsequently has tried to have the mesh removed but no surgeon wants to touch him. He has been going back and forth to the [facility]. He feels that his chest pain starts from his inguinal region and radiates up towards his chest. I explained that we will be getting a stress test to evaluate if he has problems with his coronaries. He requested for a cardiac cath so that whilst going through the femoral approach, they could take a look at the vessels in his right groin. I explained that the indication for cardiac cath do not require immediate cardiac cath now. I reassured him that after his stress test if there were concerns cardiology be consulted to decide on cardiac cath. Vitals/I&O's: Vital Signs Temp Pulse Resp BP Pulse Ox 97.7 F L 80 14 101/79 95 02/22/19 08:56 02/22/19 08:56 02/22/19 08:56 02/22/19 08:56 02/22/19 08:56 Oxygen Delivery Method Room Air Weight: 85.7 kg Body Mass Index (BMI) 26.3 Intake and Output for Last 24 Hours 02/20/19 02/21/19 02/22/19 23:59 23:59 23:59 Intake Total 250 / 250 600 / 600 Balance 250 / 250 600 / 600 General: Alert, Oriented x3, Cooperative, No apparent distress, - - looks midly unkempt HEENT: Atraumatic, PERRLA, EOMI, Normocephalic Oral: Moist Mucosa Neck: Supple Lungs: Clear to auscultation, Normal air movement Cardiovascular: Regular rate, Regular Rhythm, Normal S1, Normal S2, No murmurs Abdomen: Bowel Sounds Present, Soft, Non Tender, Non-Distended, No Hepato- splenomegaly Extremities: No edema Skin: No rashes, No breakdown Musculoskeletal: No Tenderness to Palpation of Joints or Extremities Lymphatic: No Cervical, Supraclavicular, or Inguinal Adenopathy Neurological: Cranial nerves II-XII grossly intact, Neuro grossly intact Psych/Mental Status: Normal Affect, Appropriate Laboratory Results 02/21/19 17:50: WBC 9.5, RBC 5.06, Hgb 16.1, Hct 47.2, MCV 93.3, MCH 31.8, MCHC 34.1, RDW Std Deviation 41.4, RDW Coeff of Genesis 12.0, Plt Count 233, MPV 9.1, Immature Gran % (Auto) 0.300, Neut % (Auto) 62.8, Lymph % (Auto) 26.4, [place] % (Auto) 8.9, Eos % (Auto) 1.1, Baso % (Auto) 0.5, Absolute Neuts (auto) 6.0, Absolute Lymphs (auto) 2.51, Nucleated RBC % 0 02/21/19 17:50: D-Dimer Quant (PE/DVT) < 0.27 L 02/21/19 17:50: Sodium 137, Potassium 3.4 L, Chloride 98, Carbon Dioxide 30.0, Anion Gap 9, BUN 10, Creatinine 0.80, Estim Creat Clear Calc 108.51, Est GFR (MDRD) Af Amer 127, Est GFR (MDRD) Non-Af 105, BUN/Creatinine Ratio 12.4, Glucose 115 H, Calcium 9.0, Troponin I < 0.015, Lipase 116 02/21/19 20:35: Troponin I < 0.015 02/21/19 23:58: Troponin I < 0.015 Current Medications Aspirin (Ecotrin) 81 mg PO DAILYCM [facility] Last Admin: 02/22/19 08:18 Dose: 81 mg Documented by: Heparin Sodium (Porcine) (Heparin Na) 5,000 unit SC Q12 [facility] Last Admin: 02/22/19 08:18 Dose: 5,000 unit Documented by: Sodium Chloride () 250 mls @ 15 mls/hr IV .[id number] PRN PRN Reason: Saline Flush Melatonin (Melatonin) 5 mg PO QHS [facility] Last Admin: 02/21/19 22:22 Dose: 5 mg Documented by: Mirtazapine (Remeron) 30 mg PO QHS [facility] Last Admin: 02/21/19 22:22 Dose: 30 mg Documented by: Morphine Sulfate () 2 mg IV Q3H PRN PRN PRN Reason: Pain Score 6-10/10 Ondansetron HCl (Zofran) 4 mg IV Q8H PRN PRN PRN Reason: NAUSEA/VOMITING Sodium Chloride () 10 - 40 ml IV UD PRN PRN Reason: SALINE FLUSH Last Admin: 02/21/19 20:17 Dose: 10 ml Documented by: Medical Necessity - Tobacco Use Smoking Status: Current every day smoker Tobacco Use: Cigarettes Assessment/Plan All Active Problems Chest pain (Acute) 1. Chest pain, atypical, EKG unremarkable, troponins are negative Stress test in a.m. 2. Hypokalemia, replace, recheck in am 3. Chronic inguinal/lower abdominal pain, appears stable Patient relates it to start of a new medication; Aubagio 2 years ago which has caused hardening of his vessels 4. Nicotine dependence, on replacement 5. COPD, in acute exacerbation, not on oxygen at home, will continue PRN breathing treatment 6. DVT PPx- Heparin SC Code Visit OBSV E&M: 21755 Initial observation care L2
[2019-02-22] MEDS: Morphine 2 MG/ML Syringe IV (19:02)
[2019-02-22] MEDS: 0.9% Saline Lock 10 ML Syringe IV (19:06)
[2019-02-22] MEDS: MELATONIN 10 MG TABLET 5 MG PO (22:05)
[2019-02-22] MEDS: Mirtazapine 30 MG Tablet PO (22:05)
[2019-02-23] VITALS (7 sets, daily range): BP systolic 104–137; BP diastolic 66–91; PULSE 70–82; RESP 12–18; TEMP 36.4–36.6; O2SAT 94–96
--- NOTE | 2019-02-23 05:55 | EKG12_ITS ---
Test Reason : MORNING EKG Blood Pressure : / mmHG Vent. Rate : 067 BPM Atrial Rate : 067 BPM P-R Int : 128 ms QRS Dur : 102 ms QT Int : 410 ms P-R-T Axes : 076 087 065 degrees QTc Int : 433 ms Normal sinus rhythm Normal ECG When compared with ECG of 21-FEB-2019 19:37, MANUAL COMPARISON REQUIRED, DATA IS UNCONFIRMED Confirmed by LENNY HERNANDEZ ([id number]), newspaper photo editor JULIAN WALTERS ([id number]) on 03/03/2019 10:17:48 AM Referred By: SAAD Confirmed By:LENNY HERNANDEZ
[2019-02-23 05:56] LABS: Anion Gap 6 (5-15); BUN 13 mg/dL (7-18); Chloride 104 mmol/L (98-107); Creatinine, Serum 0.81 mg/dL (0.70-1.30); EST Glomerular Filtration Rate 104 mL/min (>60); Est Glom Filt Rate - Afr Amer 126 mL/min (>60); Estimated Creatinine Clearance 107.17 ml/min; Glucose 112 mg/dL (74-106); Sodium Level 139 mmol/L (136-145)
[2019-02-23] MEDS: Aspirin E.C. 81 MG Tablet PO (06:59)
[2019-02-23 09:32] LABS: Cholesterol 196 mg/dL (200); High Density Lipoprotein 44 mg/dL; Triglycerides 209 mg/dL; Very Low Density Lipoprotein 42 mg/dL (5-40)
--- NOTE | 2019-02-23 11:50 | DCINST_ITS ---
You will use the following diet at home:: Regular Discharge Activity: May Not Drive Call your doctor if you observe: Fever of 101 or Higher, Inability to urinate, Inability to have a bowel movement, Shortness of breath, Fainting spells, Chest pain, Prolonged hiccoughing, Calf discomfort, Uncontrolled pain Allergies/Adverse Reactions: Allergies citalopram hydrobromide [From Celexa] Allergy (Verified 02/21/19 17:44) itches bones colesevelam HCl [From WelChol] Allergy (Verified 02/21/19 17:44) pain dicyclomine HCl [From Bentyl] Allergy (Verified 02/21/19 17:44) shut off bowels duloxetine HCl [From Cymbalta] Allergy (Verified 02/21/19 17:44) tickle around heart glatiramer acetate [From Copaxone] Allergy (Verified 02/21/19 17:44) Rash meloxicam [From Mobic] Allergy (Verified 02/21/19 17:44) bones itch metoclopramide [From Reglan] Allergy (Verified 02/21/19 17:44) Chest tightness naproxen Allergy (Verified 02/21/19 17:44) Itching Penicillins Allergy (Verified 02/21/19 17:44) Rash rifaximin [From Xifaxan] Allergy (Verified 02/21/19 17:44) Chest tightness azithromycin Adverse Reaction (Verified 02/21/19 17:44) Other fenofibrate Adverse Reaction (Verified 02/21/19 17:44) PAIN gemifloxacin mesylate [From Factive] Adverse Reaction (Verified 02/21/19 17:44) Other hydrochlorothiazide Adverse Reaction (Verified 02/21/19 17:44) Other DIZZINESS magnesium Adverse Reaction (Verified 02/21/19 17:44) STOMACH PAIN pregabalin [From Lyrica] Adverse Reaction (Verified 02/21/19 17:44) WEAKENED NECK ranitidine Adverse Reaction (Verified 02/21/19 17:44) TEARS UP STOMACH sulfamethoxazole [From Bactrim] Adverse Reaction (Verified 02/21/19 17:44) Other tamsulosin [From Flomax] Adverse Reaction (Verified 02/21/19 17:44) MAKES MY CHEST TIGHT teriflunomide [From Aubagio] Adverse Reaction (Verified 02/21/19 17:44) Other CLOGS ARTERIES trimethoprim [From Bactrim] Adverse Reaction (Verified 02/21/19 17:44) Other Medications to take at Discharge Linaclotide [Linzess] 290 mcg PO DAILY 05/10/17 Albuterol Inhaler [Ventolin Hfa] 1 - 2 puff INHALATION Q4H PRN PRN #1 inhaler 11/20/17 Melatonin 5 mg PO QHS 02/20/18 Aspirin E.C. [Ecotrin] 81 mg PO DAILY 08/05/18 Mirtazapine 30 mg PO QHS 08/05/18 Ondansetron [Zofran Odt] 4 mg PO Q8H PRN PRN #10 tab 02/13/19 Primary Care Physician: DOMI BERNARD [Other] Please follow up with your Primary Care Physician in: in 2 weeks Test Results: Test results from this visit will be discussed in further detail at your follow- up appointment, if applicable.
[2019-02-23] MEDS: LINACLOTIDE 145 MCG CAPSULE 290 MCG PO (11:56)
--- NOTE | 2019-02-23 15:09 | NURSING ---
pt dressed in street clothes, states he phoned his dad to come pick him up, informs he is leaving. pt ambulated to elevators.
--- NOTE | 2019-02-23 15:11 | PCM.DC.SUM ---
Discharge Date and Diagnosis Date of Admission: 02/21/19 Date of Discharge: 02/23/19 - Primary Discharge Diagnosis Atypical abdominal and chest pain: Acute coronary syndrome ruled out. - Secondary Discharge Diagnosis Chronic Problems Chronic constipation (Chronic) COPD (Chronic) GERD (gastroesophageal reflux disease) (Chronic) Multiple sclerosis (Chronic) Tobacco abuse (Chronic) Hyperlipidemia (Chronic) HTN (hypertension) (Chronic) Hospital Course and Treatment Operations: None Summary of Care Provided: The patient is a 58 year old M with history of inguinal hernia surgery status post mesh repair, chronic pain syndrome, hronic abdominal pain was admitted with mid lower abdomen abdominal pain with radiation into his chest. Patient does not have a history of coronary artery disease but he takes nitroglycerin at home and it relieves his pain, indication unclear. As per the patient. Follow-up note, patient gives a convoluted history. Patient was admitted PCU. EKG normal sinus rhythm without evidence of ischemic changes. K3.4 acute replaced. Serial troponin enzymes. Lipid profile shows triglyceride 209, LDL 110, HDL 44. Patient had nuclear stress test verbally reported normal. Acute coronary syndrome ruled out. Patient did not wait for me to come talk about the stress test and discharge instruction Patient left AMA. [] Subjective: In the morning when I went to see the patient patient was in the stress test lab. When the stress test came negative, she did not want to wait for discharge instructions and signed AMA. He left the hospital. I did not examine the patient - Physical Exam Vitals/I&O's: Vital Signs Temp Pulse Resp BP Pulse Ox 97.9 F 76 16 137/91 H 95 02/23/19 12:00 02/23/19 12:00 02/23/19 12:00 02/23/19 12:00 02/23/19 12:00 Oxygen Delivery Method Room Air Weight: 188 lb 14.978 oz Body Mass Index (BMI) 26.3 Intake and Output for Last 24 Hours 02/21/19 02/22/19 02/23/19 23:59 23:59 23:59 Intake Total 250 / 250 3320 / 3320 360 / 360 Balance 250 / 250 3320 / 3320 360 / 360 Laboratory Results 02/23/19 04:54: Sodium 139, Potassium 4.0, Chloride 104, Carbon Dioxide 29.0, Anion Gap 6, BUN 13, Creatinine 0.81, Estim Creat Clear Calc 107.17, Est GFR (MDRD) Af Amer 126, Est GFR (MDRD) Non-Af 104, BUN/Creatinine Ratio 16.0, Glucose 112 H, Calcium 8.0 L 02/23/19 04:54: Triglycerides 209 H, Cholesterol 196, LDL Cholesterol 110, VLDL Cholesterol 42 H, HDL Cholesterol 44 Discharge Activity: May Not Drive Call your doctor if you observe: Fever of 101 or Higher, Inability to urinate, Inability to have a bowel movement, Shortness of breath, Fainting spells, Chest pain, Prolonged hiccoughing, Calf discomfort, Uncontrolled pain Home Medications: Medications to take at Discharge Linaclotide [Linzess] 290 mcg PO DAILY 05/10/17 Albuterol Inhaler [Ventolin Hfa] 1 - 2 puff INHALATION Q4H PRN PRN #1 inhaler 11/20/17 Melatonin 5 mg PO QHS 02/20/18 Aspirin E.C. [Ecotrin] 81 mg PO DAILY 08/05/18 Mirtazapine 30 mg PO QHS 08/05/18 Ondansetron [Zofran Odt] 4 mg PO Q8H PRN PRN #10 tab 02/13/19 Primary Care Physician: DOMI BERNARD [Other] Please follow up with your Primary Care Physician in: in 2 weeks Medical Necessity - Tobacco Use Smoking Status: Current every day smoker Tobacco Use: Cigarettes Meaningful Use Info Meaningful Use Diagnoses (Choose all that apply): None applicable Code Visit Inpatient E&M: 16946 Disch Hosp
--- NOTE | 2019-02-23 19:37 | STRESSREP ---
Stress Test Report Pharmacologic myocardial perfusion stress test. 58-year-old man with a history of chest pain. Stress protocol: Resting EKG demonstrates normal sinus rhythm with a rate of 80 bpm normal intervals are noted resting blood pressures 132/84 mmHg. 0.4 mg of regadenoson was infused per usual protocol followed by rapid intravenous saline flush injection continuous athletic monitor was performed. Patient maintained sinus rhythm throughout the recording. At rest there were no ST or T wave changes noted suggest abnormal flow reserve a peak infusion nonspecific ST-T wave changes were noted with no meet the criteria for ischemia. The maximum heart rate attained was 116 bpm which was 71% of maximum predicted heart rate the maximum workload was 1 metabolic equivalent. Myocardial perfusion protocol. 12.0 mCi of technetium 99m sestamibi was injected at rest. 0.4 mg of regadenoson was infused per usual protocol peak infusion 34.0 mCi of technetium 99m sestamibi was injected stress images were obtained stress and rest images were reconstructed and compared in the short axis vertical long horizontal long axis. Gated images were also obtained. Perfusion SPECT analysis: Review of the stress images demonstrate normal uptake of tracer noted in all areas of the myocardium. The resting images similar demonstrate normal uptake of tracer noted in all areas of the myocardium. No areas of reversibility are noted suggest ischemia no previous infarct is noted. Gated SPECT analysis: Gated ejection fraction is noted to be 57%. Conclusion: Normal pharmacologic myocardial perfusion stress test. Preserved ejection fraction.
== END 2019-02-23 15:10 | disposition left against medical advice (07) ==
LOC: ED 18:09 → PCU 20:03
PROVIDERS: Internal Medicine; Admitting Provider Internal Medicine; Emergency Provider Emergency Medicine; Visit Provider Internal Medicine
DX: R07.89 Other chest pain (principal); R11.2 Nausea with vomiting, unspecified; R06.02 Shortness of breath; I10 Essential (primary) hypertension; J44.9 Chronic obstructive pulmonary disease, unspecified; K21.9 Gastro-esophageal reflux disease without esophagitis; E78.5 Hyperlipidemia, unspecified; G35 Multiple sclerosis; K59.09 Other constipation; Z79.899 Other long term (current) drug therapy; Z79.82 Long term (current) use of aspirin; F17.210 Nicotine dependence, cigarettes, uncomplicated; E87.6 Hypokalemia
CPT/HCPCS: 36415; 71045; 78452; 80048; 80061; 83690; 84484; 85025; 85379; 93005; 93017; 96361; 96372; 96374; 96375; 96376; 99218; 99285; 99406; A9500; A4216; G0378; J2405; J2785

== ENCOUNTER 2019-03-04 17:24 | Emergency (ER) | payer MEDICARE, SELFPAY ==
[2019-02-21 19:44] VITALS: BMI 26.3
[2019-03-04 17:25] VITALS: BP 158/84; PULSE 83; RESP 18; TEMP 36.1; O2SAT 100; BMI 24.4
--- NOTE | 2019-03-04 17:37 | ED.VISSUMM ---
- ER Visit Summary Date of Service: 03/04/19 Chief Complaint: Body pain History of Present Illness: The patient is a 58 M who has had whole body pain for the past 2 years. He states it is getting worse by the day. He feels like my veins are pulling everywhere. He states that it is from a medication that he took a long time ago and it is calcified all of his veins and arteries. It occurred also after an inguinal hernia surgery which she says the mesh is now growing into his arteries. He is trying Tylenol at home without any relief. He has intermittent dysuria at home as well. He was admitted last week for chest pain and had a negative stress test. Physical Examination: Vital signs reviewed. HEENT exam unremarkable. Heart is regular rate and rhythm without murmurs. Lungs are clear to auscultation. Abdomen is soft and nontender. Extremities reveal no edema. Skin exam normal. Neurologic exam normal. Test Results: Urinalysis normal Emergency Department Course and Treatment: The patient's exam is benign. I do not feel he needs any lab work as he just had some about 10 days ago. His urinalysis is normal. He will need to call his doctor for follow-up to evaluate his complaints Treatment Plan: [] Disposition: Discharge Impression: Total body pain This note was generated with Visual Realm dictation software. It may contain incorrect words, spelling, and punctuation that were not noted in review of the chart prior to signing ED Disposition - Plan for ED Patient: Referrals: [facility] Doctor,Out of [NON-STAFF] -
[2019-03-04 17:40] VITALS: BP 174/95; PULSE 78; RESP 22; O2SAT 100
[2019-03-04 17:58] LABS: Bacteria 0 SEEN /hpf (None Seen); Mucous, Urine 0 SEEN /hpf (<or=2+); Red Blood Cells-Urine 0 SEEN /hpf (0-5); Squamous Epithelial Cells - UA 0 SEEN /hpf (0-5); White Blood Cells 0 SEEN /hpf (0-5)
[2019-03-04 18:22] LABS: Color, Urine Yellow (Yellow); Glucose, Dipstick Normal (Normal); Ketone-Dipstick Negative (Negative); Leukocyte Esterase-Dipstick Negative /ul (Negative); Nitrite-Dipstick Negative (Negative); Occult Blood-Urine Negative /ul (Negative); Protein-Dipstick Negative (Negative); Specific Gravity, Urine 1.005 (1.002-1.030); Urine Bilirubin Dipstick Negative (Negative); Urine Clarity Clear (Clear); Urine Urobilinogen Normal (Normal)
--- NOTE | 2019-03-04 18:32 | ED.DEP ---
ED Disposition - Plan for ED Patient: Disposition: Home or Assisted Living Instructions: ED Chronic Pain Referrals: [facility],Out of [NON-STAFF] -
[2019-03-04 18:34] VITALS: BP 151/95; PULSE 76; RESP 15; O2SAT 97
== END 2019-03-04 18:37 | disposition home or self-care (01) ==
PROVIDERS: Emergency Provider Emergency Medicine
DX: R52 Pain, unspecified (principal); R30.0 Dysuria; Z72.0 Tobacco use
CPT/HCPCS: 81001; 99282

== ENCOUNTER 2019-03-15 09:26 | Emergency (ER) | payer MEDICARE, SELFPAY ==
[2019-03-15 09:28] VITALS: BP 167/96; PULSE 75; RESP 16; TEMP 36.6; O2SAT 96; BMI 26.7
--- NOTE | 2019-03-15 10:22 | ED.VISSUMM ---
- ER Visit Summary Date of Service: 03/15/19 Chief Complaint: Left lower quadrant abdominal pain History of Present Illness: The patient is a 58 M with a left lower quadrant abdominal pain which he thinks is secondary to medication and prior hernia repair with mesh. Patient's had this complaint intermittently for years. He follows up with a surgeon at [facility] and states that he is going to have the mesh taken out. He denies any fever or chills. No dysuria. Physical Examination: Well-appearing middle-aged male. No acute distress. Vital signs are stable afebrile. HEENT exam unremarkable. Poor dentition. Neck nontender. Lungs coarse breath sounds but no rales, rhonchi or wheezing. Smell of tobacco on his breath strongly. Heart regular rhythm no murmur. Abdomen is soft. Nondistended normal bowel sounds no peritoneal signs. He points to his left lower quadrant is a normal exam. There is no obvious hernia or mass. There is no signs of obstruction. There are no abscesses. It is really not tender. It appears to be normal. There is no pulsatile mass. Patient is moving all 4 extremities. He has clubbing of his nails and stains to his nails from tobacco smoking. Neurologically is awake and alert with no focal motor deficits. Test Results: None Emergency Department Course and Treatment: Patient has had this complaint for years. There is nothing to do for this in the emergency department. He has had imaging in the past including CT of the abdomen and pelvis and x-rays which have been unremarkable. He can follow-up with his general surgeon and they can decide if they can take this mesh out. Treatment Plan: Discharged to home follow-up with his physician. Disposition: Discharge Impression: Left lower quadrant abdominal pain uncertain etiology. History of inguinal hernia repair with mesh This note was generated with Convozine dictation software. It may contain incorrect words, spelling, and punctuation that were not noted in review of the chart prior to signing ED Disposition - Plan for ED Patient: Referrals: Krysten Lozano,Out of [Primary Care Provider] -
--- NOTE | 2019-03-15 10:24 | DCINST.ED_ITS ---
ED Disposition - Plan for ED Patient: Disposition: Home or Assisted Living Instructions: ABDOMINAL PAIN, Unkown Cause, (Male) Referrals: [facility],Out of [Primary Care Provider] - As Needed Additional Instructions: Follow-up with your surgeon from [facility] and he and you can determine if you are going to have your mesh taken out.
== END 2019-03-15 10:31 | disposition home or self-care (01) ==
PROVIDERS: Emergency Provider Emergency Medicine
DX: R10.32 Left lower quadrant pain (principal); Z98.890 Other specified postprocedural states; J44.9 Chronic obstructive pulmonary disease, unspecified; G35 Multiple sclerosis; F41.9 Anxiety disorder, unspecified; Z72.0 Tobacco use; Z79.51 Long term (current) use of inhaled steroids; Z79.899 Other long term (current) drug therapy
CPT/HCPCS: 99284

== ENCOUNTER 2019-03-25 13:55 | Emergency (ER) | payer MEDICARE, SELFPAY ==
[2019-03-25 13:56] VITALS: BP 166/111; PULSE 86; RESP 15; TEMP 37.1; O2SAT 97; BMI 27.6
[2019-03-25 14:24] VITALS: BMI 27.6
--- NOTE | 2019-03-25 14:40 | ED.DCSUM_ITS ---
History of Present Illness Chief Complaint: Neuro S/Sx Informant: Patient Onset: - - Years of numbness and issues related to abdominal mesh hernia repair Maximum Severity: Mild Narrative: Patient is complaining of tingling all over his body and a vague discomfort to the left abdominal area he indicates he has had this condition for many years he believes is related to taking some unspecified medicine that caused him to have a sense of metal in his blood hardening of his arteries, he also had apparently some type of an abdominal mesh hernia repair that he feels is not healing well years ago He has an outpatient provider who is he seen, he has been seen by specialist, he has been referred to specialist or seen specialist at [facility] for this condition indicates no change in his status and he presents complaining of all the above nothing is new or different he is eating and drinking well normal bowel bladder habits Past Medical History - Allergies and Home Meds Allergies/Adverse Reactions: Allergies citalopram hydrobromide [From Celexa] Allergy (Verified 03/25/19 14:00) itches bones colesevelam HCl [From WelChol] Allergy (Verified 03/25/19 14:00) pain dicyclomine HCl [From Bentyl] Allergy (Verified 03/25/19 14:00) shut off bowels duloxetine HCl [From Cymbalta] Allergy (Verified 03/25/19 14:00) tickle around heart glatiramer acetate [From Copaxone] Allergy (Verified 03/25/19 14:00) Rash meloxicam [From Mobic] Allergy (Verified 03/25/19 14:00) bones itch metoclopramide [From Reglan] Allergy (Verified 03/25/19 14:00) Chest tightness naproxen Allergy (Verified 03/25/19 14:00) Itching Penicillins Allergy (Verified 03/25/19 14:00) Rash rifaximin [From Xifaxan] Allergy (Verified 03/25/19 14:00) Chest tightness azithromycin Adverse Reaction (Verified 03/25/19 14:00) Other fenofibrate Adverse Reaction (Verified 03/25/19 14:00) PAIN gemifloxacin mesylate [From Factive] Adverse Reaction (Verified 03/25/19 14:00) Other hydrochlorothiazide Adverse Reaction (Verified 03/25/19 14:00) Other DIZZINESS magnesium Adverse Reaction (Verified 03/25/19 14:00) STOMACH PAIN pregabalin [From Lyrica] Adverse Reaction (Verified 03/25/19 14:00) WEAKENED NECK ranitidine Adverse Reaction (Verified 03/25/19 14:00) TEARS UP STOMACH sulfamethoxazole [From Bactrim] Adverse Reaction (Verified 03/25/19 14:00) Other tamsulosin [From Flomax] Adverse Reaction (Verified 03/25/19 14:00) MAKES MY CHEST TIGHT teriflunomide [From Aubagio] Adverse Reaction (Verified 03/25/19 14:00) Other CLOGS ARTERIES trimethoprim [From Bactrim] Adverse Reaction (Verified 03/25/19 14:00) Other Primary Care Physician: [facility] Doctor,Out of [Primary Care Provider] - Past Medical History: - Surgical History: - - T+A, Cholecystectomy, Umbilical hernia repair, BL rotator cuff repair, multiple spinal injections, Back and Neck surgery. Smoking Status: Current every day smoker - Family History Maternal Family History: Reports: - - Mother with history of lung and brain cancer. Paternal Family History: Reports: Heart Disease, - - History of premature coronary artery disease diagnosed in his father at age 47 Review of Systems ROS: - All of the above General: Reports: -. Denies: Chills, Fever, Sweats Eyes: Denies: Visual changes - bilaterally, Diplopia ENT: Denies: Rhinorrhea, Sore throat Cardiovascular: Denies: Chest pain, Palpitations Respiratory: Denies: Dyspnea, Cough, Dyspnea on exertion Gastrointestinal: Denies: Abdominal pain, Nausea, Vomiting, Diarrhea, Melena, Hematochezia Genitourinary: Denies: Dysuria, Hematuria, Frequency Musculoskeletal: Denies: Back pain, Extremity Pain Skin: Denies: Rash, Wounds Neurological: Denies: Headache, Weakness, Numbness Physical Exam Vital Signs/Narrative: Vital Signs Temp Pulse Resp BP Pulse Ox 03/25/19 13:56 98.7 F 86 15 166/111 H 97 General: Well nourished, Well developed, No Acute Distress Head: Normocephalic, Atraumatic Eyes: Perrl, EOMI ENT: Moist mucous membranes, No rhinorrhea Neck: Supple, Nontender Cardiovascular: Regular rate, Regular rhythm, No murmurs Respiratory: No distress, CTA bilaterally, Chest nontender Abdomen: Soft, Nontender, Nondistended, Normal bowel sounds Back: Nontender, Normal Inspection Extremities: Nontender, No edema Skin: Normal color, No rash Neurological: Alert, Oriented x3, Cranial nerves II-XII grossly intact, Normal Strength, Normal Sensation Psychological: Normal affect, Normal Mood Diagnostic/Tx/Re-eval - Medical Decision Making His exam is unremarkable he is in no distress he is moving all 4 extremities he is walking around the room again he expressed frustration as to why no one can tell him why his whole body tingles this issue with the mesh hernia repair at this time he agrees there is no indication for ED evaluation as he has been evaluated multiple times in the past he simply wanted something for the pain I explained to him we could not manage his pain from the emergency department that he would need to obtain pain management for his outpatient providers and follow- up for them for definitive management Home stable Final impression, whole body numbness for years, left-sided abdominal pain prior hernia mesh repair ED Disposition - Plan for ED Patient: Diagnosis: Chronic pain Instructions: The Cycle of Chronic Pain Referrals: [facility] Doctor,Out of [Primary Care Provider] -
--- NOTE | 2019-03-25 14:45 | ED.RN ---
PT AMBULATED OUT OF DEPARTMENT WITHOUT DIFFICULTY BEFORE BEING DISCHARGED
== END 2019-03-25 14:55 | disposition home or self-care (01) ==
LOC: ED 14:40
PROVIDERS: Emergency Provider Emergency Medicine
DX: G89.29 Other chronic pain (principal); R20.2 Paresthesia of skin; R10.9 Unspecified abdominal pain; F17.200 Nicotine dependence, unspecified, uncomplicated

== ENCOUNTER 2019-04-19 18:56 | Emergency (ER) | payer MEDICARE, MEDICAID, SELFPAY ==
[2019-04-06 17:32] VITALS: BMI 27.6
[2019-04-19 18:58] VITALS: BP 156/90; PULSE 111; RESP 18; TEMP 36.4; O2SAT 99; BMI 27.7
[2019-04-19] MEDS: 0.9% Normal Saline 1,000 ML 1000 ML IV (19:30)
[2019-04-19] MEDS: LORazepam 2 MG/ML Syringe 1 MG IV (19:32)
[2019-04-19] MEDS: Ondansetron 4 MG/2 ML Vial IV (19:33)
[2019-04-19 19:35] LABS: Bacteria 0 SEEN /hpf (None Seen); Mucous, Urine 0 SEEN /hpf (<or=2+); Red Blood Cells-Urine 0 SEEN /hpf (0-5); White Blood Cells 0 SEEN /hpf (0-5)
[2019-04-19 19:37] LABS: Absolute Lymphocyte Count 2.09 X10^3/uL (0.83-4.51); Absolute Neutrophil Count 4.4 X10^3/uL (2.0-7.7); Basophil# 0.02 X10^3/uL; Basophil% 0.3 % (0-1); Eosinophil# 0.05 X10^3/uL; Eosinophils% 0.7 % (0-5); Hematocrit 42.4 % (40-54); Hemoglobin 14.8 g/dL (13.0-16.5); Lymphocyte # 2.09 X10^3/ul (4.0); Lymphocyte % 28.6 % (19-41); Mean Corp Hgb Conc 34.9 g/dL (32-36); Mean Corpuscular Hgb 32.9 pg (27.0-32.0); Mean Corpuscular Volume 94.2 fL (80-94); Mean Platelet Vol. 8.7 fl (6.2-12.0); Monocyte% 9.6 % (0-10); NRBC Flagged by Analyzer 0 % (0-5); Neutrophil # 4.43 X10^3/uL (2.7-7.7); Neutrophil % 60.7 % (47-70); Platelet Count 235 K/mm3 (150-450); RBC Distribution Width CV 12.4 % (11.6-14.6); White Blood Count 7.3 K/mm3 (4.4-11.0)
[2019-04-19 19:39] LABS: Color, Urine Straw (Yellow); Glucose, Dipstick Normal (Normal); Ketone-Dipstick Negative (Negative); Leukocyte Esterase-Dipstick Negative /ul (Negative); Nitrite-Dipstick Negative (Negative); Occult Blood-Urine Negative /ul (Negative); Protein-Dipstick Negative (Negative); Urine Bilirubin Dipstick Negative (Negative); Urine Clarity Clear (Clear); Urine Urobilinogen Normal (Normal)
[2019-04-19 19:45] LABS: Squamous Epithelial Cells - UA 0-5 SEEN /hpf (0-5)
--- NOTE | 2019-04-19 19:47 | ED.VISSUMM ---
- ER Visit Summary Date of Service: 04/19/19 Chief Complaint: [Burning in body] History of Present Illness: The patient is a 58 M [presents to the emergency department with a vague burning sensation that starts in his abdomen and groin and radiates up over his shoulders. Patient has had odd sensations like this for quite some time and has had multiple visits to this emergency department for same. Patient states that years ago he took a medication called Aubagio which she feels caused hardening of his veins and burning in his body. Patient is scheduled to have a mesh surgery to remove the mesh from his abdomen. The surgery is to take place in May. Patient states that he was recently on doxy cycling to treat an upper respiratory infection. Patient states that he feels like the doxycycline triggered this episode of symptoms. Patient also was recently started on Cipro for concern for possible urinary tract infection. Patient states he has been vomiting throughout the day today. She denies any fevers. He denies any blood in his stool or black tarry stool.] Physical Examination: [HEENT-PERRLA, EOMI. Cranial nerves II through XII grossly intact. TMs clear. Mucous membranes moist. No adenopathy. Cardiovascular-regular rate and rhythm without murmur or ectopy Lungs-clear to auscultation, chest wall stable without crepitus or subcu emphysema Abdomen-normoactive bowel sounds, soft. Patient has some mild diffuse tenderness on palpation. There is no rebound, rigidity, or perineal signs. Extremities-intact ?4, normal range of motion, normal pulses, atraumatic] Test Results: [BC with differential obtained was normal. Chemistries were normal. Urinalysis was normal.] Emergency Department Course and Treatment: [Was given Zofran 4 mg IV as well as Ativan 1 mg IV. Patient did feel improved after treatment.] Treatment Plan: [Patient will be given a prescription for Zofran. Patient advised to follow-up with his primary care physician within next 3 to 5 days.] Disposition: [Discharged home in stable condition] Impression: [Paresthesias -recurrent Abdominal pain-chronic ] This note was generated with Mosso dictation software. It may contain incorrect words, spelling, and punctuation that were not noted in review of the chart prior to signing ED Disposition - Plan for ED Patient: Referrals: [facility] Doctor,Out of [Primary Care Provider] -
[2019-04-19 19:49] LABS: Anion Gap 8 (5-15); BUN 11 mg/dL (7-18); BUN/Creat Ratio 13.9 RATIO (10-20); Calcium,Total 8.5 mg/dL (8.5-10.1); Chloride 107 mmol/L (98-107); Creatinine, Serum 0.79 mg/dL (0.70-1.30); EST Glomerular Filtration Rate 107 mL/min (>60); Est Glom Filt Rate - Afr Amer 129 mL/min (>60); Estimated Creatinine Clearance 109.88 ml/min; Glucose 103 mg/dL (74-106); Potassium 3.5 mmol/L (3.5-5.1); Sodium Level 139 mmol/L (136-145)
--- NOTE | 2019-04-19 20:05 | DCINST.ED_ITS ---
ED Disposition - Plan for ED Patient: Instructions: Paraesthesias, ABDOMINAL PAIN, Unkown Cause, (Male) Prescriptions: Ondansetron [Zofran Odt] 4 mg PO Q8H PRN PRN #10 tab PRN Reason: Nausea Prescription Printed Referrals: [facility] Doctor,Out of [Primary Care Provider] - 3-5 Days
--- NOTE | 2019-04-24 19:20 | CM.ED ---
SOCIAL WORK ATTEMPTED TO CONTACT PATIENT TO UPDATE ON ED CARE PLAN. NO ANSWER, LEFT MESSAGE WITH ED MILK BOTTLING MACHINE OPERATOR'S CALL BACK INFORMATION. Yan GUSMAN, CLERK SECRETARY, RESEARCH ANALYST.
== END 2019-04-19 20:19 | disposition home or self-care (01) ==
PROVIDERS: Emergency Provider Emergency Medicine
DX: R20.2 Paresthesia of skin (principal); R10.84 Generalized abdominal pain; G89.29 Other chronic pain; J44.9 Chronic obstructive pulmonary disease, unspecified; I10 Essential (primary) hypertension; G35 Multiple sclerosis; Z72.0 Tobacco use; Z79.82 Long term (current) use of aspirin; Z79.899 Other long term (current) drug therapy
CPT/HCPCS: 80048; 81001; 85025; 96361; 96374; 96375; 99283; J7030; A4216; J2405

== ENCOUNTER 2019-04-25 15:13 | Emergency (ER) | payer MEDICARE, MEDICAID, SELFPAY ==
[2019-04-25 15:14] VITALS: BP 137/99; PULSE 116; RESP 18; TEMP 37; O2SAT 98; BMI 24.4
--- NOTE | 2019-04-25 15:53 | ED.DCSUM_ITS ---
History of Present Illness Informant: Patient Onset: Weeks - 1 week Context: Gradual Onset Timing: Continuous Quality: burning Location: entirebody Current Severity: Severe Maximum Severity: Severe Worsened by: nothing Relieved by: nothing Associated Symptoms: cough Narrative: 58-year-old male well-known to the emergency department currently has a care plan presents to the emergency department with complaints of burning in his veins throughout the entire course of his body. Patient states this is a chronic issue for him for the last 3 years since he had an adverse reaction to a multiple sclerosis medication. Was seen here recently for bronchitis and placed on doxycycline. He states that he feels that that has made his chronic condition worse. He has not had a fever, he has no weakness he has no paresthesias he has been able to eat and drink normally ambulate normally he has no visual changes he is not having vomiting or diarrhea has been urinating normally he has no rash or difficulty breathing or swallowing. Prior similar symptoms: Yes Recent Illness/Hospitalization: No <Mariano Kaufman - Last Filed: 04/25/19 15:56> <Vinh Monae - Last Filed: 04/25/19 23:26> Chief Complaint: General Illness Past Medical History Prior records reviewed: Yes Past Medical History: - - Multiple Sclerosis Surgical History: - - T+A, Cholecystectomy, Umbilical hernia repair, BL rotator cuff repair, multiple spinal injections, Back and Neck surgery. Lives: Alone Smoking Status: Heavy Smoker (>10/day) Alcohol: Occasional Drugs: None - Family History Maternal Family History: Family History (Last Updated 04/06/19 @ 15:24 by Meghan Croft) Mother Cancer Father Heart disease Family History: Reports: - - Mother with history of lung and brain cancer. Paternal Family History: Family History (Last Updated 04/06/19 @ 15:24 by Meghan Croft) Mother Cancer Father Heart disease Family History: Reports: Heart Disease, - - History of premature coronary artery disease diagnosed in his father at age 47 <Mariano Kaufman - Last Filed: 04/25/19 15:56> - Family History Maternal Family History: Family History (Last Updated 04/06/19 @ 15:24 by Meghan Croft) Mother Cancer Father Heart disease Paternal Family History: Family History (Last Updated 04/06/19 @ 15:24 by Meghan Croft) Mother Cancer Father Heart disease <Vinh Monae - Last Filed: 04/25/19 23:26> - Allergies and Home Meds Allergies/Adverse Reactions: Allergies citalopram hydrobromide [From Celexa] Allergy (Verified 04/25/19 15:19) itches bones colesevelam HCl [From WelChol] Allergy (Verified 04/25/19 15:19) pain dicyclomine HCl [From Bentyl] Allergy (Verified 04/25/19 15:19) shut off bowels duloxetine HCl [From Cymbalta] Allergy (Verified 04/25/19 15:19) tickle around heart glatiramer acetate [From Copaxone] Allergy (Verified 04/25/19 15:19) Rash meloxicam [From Mobic] Allergy (Verified 04/25/19 15:19) bones itch metoclopramide [From Reglan] Allergy (Verified 04/25/19 15:19) Chest tightness naproxen Allergy (Verified 04/25/19 15:19) Itching Penicillins Allergy (Verified 04/25/19 15:19) Rash rifaximin [From Xifaxan] Allergy (Verified 04/25/19 15:19) Chest tightness azithromycin Adverse Reaction (Verified 04/25/19 15:19) Other fenofibrate Adverse Reaction (Verified 04/25/19 15:19) PAIN gemifloxacin mesylate [From Factive] Adverse Reaction (Verified 04/25/19 15:19) Other hydrochlorothiazide Adverse Reaction (Verified 04/25/19 15:19) Other DIZZINESS magnesium Adverse Reaction (Verified 04/25/19 15:19) STOMACH PAIN pregabalin [From Lyrica] Adverse Reaction (Verified 04/25/19 15:19) WEAKENED NECK ranitidine Adverse Reaction (Verified 04/25/19 15:19) TEARS UP STOMACH sulfamethoxazole [From Bactrim] Adverse Reaction (Verified 04/25/19 15:19) Other tamsulosin [From Flomax] Adverse Reaction (Verified 04/25/19 15:19) MAKES MY CHEST TIGHT teriflunomide [From Aubagio] Adverse Reaction (Verified 04/25/19 15:19) Other CLOGS ARTERIES trimethoprim [From Bactrim] Adverse Reaction (Verified 04/25/19 15:19) Other Primary Care Physician: [facility] Doctor,Out of [NON-STAFF] - Review of Systems All systems negative except as indicated General: Denies: Chills, Fever, Malaise Eyes: Denies: Visual changes - left, Visual changes - right, Blurred vision - left, Blurred vision - right ENT: Denies: Bilateral ear pain, Rhinorrhea, Sore throat Cardiovascular: Denies: Chest pain, Palpitations, Heart racing Respiratory: Reports: Cough. Denies: Dyspnea, Sputum, Dyspnea on exertion, Orthopnea, Paroxysmal nocturnal dyspnea Gastrointestinal: Denies: Abdominal pain, Nausea, Vomiting, Diarrhea Genitourinary: Denies: Dysuria, Hematuria, Frequency Musculoskeletal: Denies: Myalgias, Arthralgias, Neck pain, Back pain Skin: Denies: Rash, Abscess, Abrasions, Wounds Neurological: Denies: Headache, Weakness, Parasthesia Psych: Denies: Suicidal thoughts, Suicidal ideations <Mariano Kaufman - Last Filed: 04/25/19 15:56> Physical Exam Vital Signs/Narrative: Vital Signs Temp Pulse Resp BP Pulse Ox 04/25/19 15:14 98.6 F 116 H 18 137/99 H 98 Inital Vital Signs reviewed: Yes General: Well nourished, Well developed, No Acute Distress Head: Normocephalic, Atraumatic Eyes: Perrl, EOMI ENT: Moist mucous membranes Neck: Supple, Nontender Cardiovascular: Regular rate, Regular rhythm, No murmurs Respiratory: No distress, CTA bilaterally, Chest nontender Abdomen: Soft, Nontender, Nondistended, Normal bowel sounds Back: Nontender, Normal Inspection Extremities: Nontender, No edema Skin: Normal color, No rash Neurological: Alert, Oriented x3, Normal Strength, Normal Sensation, Normal Gait Psychological: Normal affect <Mariano Kaufman - Last Filed: 04/25/19 15:56> Diagnostic/Tx/Re-eval - Medical Decision Making Patient presents with what he thinks is an acute exacerbation of his chronic condition worsened by the doxycycline he has 3 days left on the doxycycline he was advised to discontinue it. He has not had any signs or symptoms that are consistent with an anaphylactic reaction. Overall on exam it is nonfocal he is well-appearing he is not vomiting vital signs are stable we will discharge him home and he will follow-up with his primary care. <Mariano Kaufman - Last Filed: 04/25/19 15:56> - Medical Decision Making Patient was seen with me. I did a [id number] examination with the patient. Patient presents with burning in his veins. Patient states this became worse when he was started on doxycycline bronchitis. Patient states the medicine is interfering with the mesh in his right inguinal hernia. Patient denies any fevers or chills. Vital signs are stable. Patient is afebrile. Patient is in no acute distress. Oral mucosa is pink and moist. Heart was regular rate and rhythm. Lungs are clear and equal bilateral. Abdomen is soft. Bowel sounds are normal. There is no tenderness. There are no masses or hernias noted. Cranial nerves II through XII are intact. There are no focal motor or sensory deficits noted. Patient was instructed to stop his doxycycline. Patient was instructed to follow-up with his primary care physician in 5 to 7 days. Patient understood and was agreeable with the plan. All questions were answered. <Vinh Monae - Last Filed: 04/25/19 23:26> ED Disposition <Mariano Kaufman - Last Filed: 04/25/19 15:56> <Vinh Monae - Last Filed: 04/25/19 23:26> - Plan for ED Patient: Disposition: Home or Assisted Living Diagnosis: Adverse reaction to antibiotic Instructions: DRUG REACTION, Other Referrals: [facility] Doctor,Out of [NON-STAFF] -
--- NOTE | 2019-04-25 16:16 | CM.ED ---
Addendum entered by Joanna Dawn 04/25/19 16:24: Note: Patient also stating to be meeting with a surgeon from [facility] in a month to see about getting the mesh removed. Original Note: Social Work Consult: ED Care Plan Informant: Self-Referral Met with patient in room. Introduced self and child protective services social worker role. Patient agreeable to meeting with this child protective services social worker. This child protective services social worker broached topic of community resources that patient might benefit from (Palliative Care and Counseling services). Patient stating to have received a phone call from palliative care but to not be sure what they will do for me. This child protective services social worker educating patient that Palliative care will assist with managing patient pain. Patient perseverating on getting the mesh removed and this is what is causing patient pain. Patient also stating that medication that patient took is causing patient vain's to burn. This child protective services social worker expressing empathy and that it must be frustrating to be in pain. This child protective services social worker addressing value of mental health and importance of maintain mental health even if there are physical symptoms that cause stress. This child protective services social worker exploring if patient would be interested in counseling services. Patient stating to be in counseling but then stating that it has been a year since patient has gone to counseling and patient only goes to counseling to get medication for sleeping. Patient stating to be active with the [facility]. Patient is not following up with counseling due to not being able to get sleeping medication anymore due to not being able to meet with a psychiatrist. Per patient the Counseling Center did provide patient with option of meeting with a psychiatrist via video chat. Patient stating that is useless. Patient ED Care Plan has been approved. Provided patient with copy of ED Care Plan, Patient letter, When to Go Where to Go, Counseling resources, and Palliative Care information. Educated patient on what an ED Care Plan is and that social work will continue to follow up with patient as needed. Active support and listening provided. Judy LOWERY, DHRUV
--- NOTE | 2019-04-25 16:22 | ED.RN ---
PT LEFT ED PRIOR TO RECEIVING DC INSTRUCTIONS.
--- NOTE | 2019-05-06 17:14 | CM.ED ---
Social Work Copy of ED Care Plan faxed to patient PCP. Judy Dawn INSTITUTIONAL RESEARCH DIRECTOR, HAMMERER TAB
== END 2019-04-25 16:22 | disposition home or self-care (01) ==
PROVIDERS: Emergency Provider Physician Assistant Medical
DX: T36.4X5A Adverse effect of tetracyclines, initial encounter (principal); G35 Multiple sclerosis; F17.200 Nicotine dependence, unspecified, uncomplicated; Z79.899 Other long term (current) drug therapy
CPT/HCPCS: 99282

== ENCOUNTER 2019-07-20 01:38 | Emergency (ER) | payer MEDICARE, SELFPAY ==
[2019-07-20 01:40] VITALS: BP 152/93; PULSE 127; RESP 18; TEMP 36.6; O2SAT 98; BMI 24.5
--- NOTE | 2019-07-20 02:27 | ED.VIS.GEN ---
History of Present Illness Chief Complaint: Abd Pain Detail of Chief Complaint: diffuse pain, entire body Informant: Patient Onset: Days - 2 Context: Gradual Onset Timing: Continuous Quality: burning Location: everywhere, mostly diffuse abd and BLE Current Severity: Severe Maximum Severity: Severe Worsened by: nothing Relieved by: nothing Narrative: Patient states he had inguinal herniorrhaphies bilaterally and 2017, and the surgeon did not put the veins back like he was supposed to before putting the meshes in, so they scarred in with the meshes. He was seen by a surgeon in [place], who referred him to a mesh-removal specialist surgeon at [facility], he saw that surgeon recently, was admitted to the hospital over the weekend for IV antibiotics because the MS medication that I received 2 years ago, which stays in my system for 10 years, made my veins get infected so they put me on IV antibiotics, which made my veins burn all over. He states this burning was persistent throughout his stay at [facility], he was discharged sometime around 12 hours ago with this burning, and it has progressively worsened throughout the day so he presents to this emergency department. He denies any new symptoms. He states since the antibiotic caused this he discontinued them and then discharged him home. They plan on at some point performing elective surgery to remove his meshes in both inguinal areas, which is where the burning is focused now, however the state [facility] has disallowed elective surgeries due to the coronavirus pandemic and I do not know when he will be able to have the surgery done. He denies any numbness or pain in his lower extremities/feet except for this burning discomfort radiating down from his groins. He denies any bowel or bladder dysfunction. - Past Medical History (1) COPD Status: Chronic (2) Chronic constipation Status: Chronic (3) GERD (gastroesophageal reflux disease) Status: Chronic (4) HTN (hypertension) Status: Chronic (5) Hyperlipidemia Status: Chronic (6) Multiple sclerosis Status: Chronic (7) Tobacco abuse Status: Chronic (8) Cervical spinal stenosis Status: Inactive Past Medical History - Allergies and Home Meds Allergies/Adverse Reactions: Allergies citalopram hydrobromide [From Celexa] Allergy (Verified 07/20/19 01:40) itches bones colesevelam HCl [From WelChol] Allergy (Verified 07/20/19 01:40) pain dicyclomine HCl [From Bentyl] Allergy (Verified 07/20/19 01:40) shut off bowels duloxetine HCl [From Cymbalta] Allergy (Verified 07/20/19 01:40) tickle around heart glatiramer acetate [From Copaxone] Allergy (Verified 07/20/19 01:40) Rash meloxicam [From Mobic] Allergy (Verified 07/20/19 01:40) bones itch metoclopramide [From Reglan] Allergy (Verified 07/20/19:40) Chest tightness naproxen Allergy (Verified 07/20/19 01:40) Itching Penicillins Allergy (Verified 07/20/19 01:40) Rash rifaximin [From Xifaxan] Allergy (Verified 07/20/19:40) Chest tightness azithromycin Adverse Reaction (Verified 07/20/19:40) Other fenofibrate Adverse Reaction (Verified 07/20/19:40) PAIN gemifloxacin mesylate [From Factive] Adverse Reaction (Verified 07/20/19:40) Other hydrochlorothiazide Adverse Reaction (Verified 07/20/19:40) Other DIZZINESS magnesium Adverse Reaction (Verified 07/20/19:40) STOMACH PAIN pregabalin [From Lyrica] Adverse Reaction (Verified 07/20/19:40) WEAKENED NECK ranitidine Adverse Reaction (Verified 07/20/19:40) TEARS UP STOMACH sulfamethoxazole [From Bactrim] Adverse Reaction (Verified 07/20/19 01:40) Other tamsulosin [From Flomax] Adverse Reaction (Verified 07/20/19:40) MAKES MY CHEST TIGHT teriflunomide [From Aubagio] Adverse Reaction (Verified 07/20/19 01:40) Other CLOGS ARTERIES trimethoprim [From Bactrim] Adverse Reaction (Verified 07/20/19 01:40) Other Primary Care Physician: Denise Wiseman DO [Primary Care Provider] - Surgical History: - - T+A, Cholecystectomy, Umbilical hernia repair, BL rotator cuff repair, multiple spinal injections, Back and Neck surgery. Smoking Status: Current every day smoker - Family History Maternal Family History: Family History (Last Updated 04/06/19 @ 15:24 by Meghan Croft) Mother Cancer Father Heart disease Family History: Reports: - - Mother with history of lung and brain cancer. Paternal Family History: Family History (Last Updated 04/06/19 @ 15:24 by Meghan Croft) Mother Cancer Father Heart disease Family History: Reports: Heart Disease, - - History of premature coronary artery disease diagnosed in his father at age 47 Review of Systems General: Denies: Chills, Fever, Sweats Eyes: Denies: Visual changes - bilaterally, Diplopia ENT: Denies: Rhinorrhea, Sore throat Cardiovascular: Denies: Chest pain, Palpitations Respiratory: Denies: Dyspnea, Cough, Dyspnea on exertion Gastrointestinal: Reports: Abdominal pain. Denies: Nausea, Vomiting, Diarrhea, Melena, Hematochezia Genitourinary: Denies: Dysuria, Hematuria, Frequency Musculoskeletal: Reports: Extremity Pain. Denies: Neck pain, Back pain, Swelling Skin: Denies: Rash, Wounds Neurological: Denies: Headache, Weakness, Numbness Physical Exam Vital Signs/Narrative: Vital Signs Temp Pulse Resp BP Pulse Ox 07/20/19 01:40 97.9 F 127 H 18 152/93 H 98 Inital Vital Signs reviewed: Yes General: Well nourished, Well developed, No Acute Distress - well-appearing, conversive in full sentences w/o difficulty. Head: Normocephalic, Atraumatic Eyes: Perrl, EOMI ENT: Moist mucous membranes, No rhinorrhea Neck: Supple, Nontender Cardiovascular: Regular rate, Regular rhythm, No murmurs, Tachycardia, - - He has a 3-second cap refill both feet, diminished pulses, symmetric, but palpable on the feet. Respiratory: No distress, CTA bilaterally, Chest nontender Abdomen: Soft, Nontender, Nondistended, Normal bowel sounds, - - Few minor ecchymoses throughout the lower abdominal wall. No palpable mass or hernia, but he is thin and presumably scar tissue and/or mesh is palpable in the bilateral lower pelvic area above the inguinal ligaments. There is no tenderness here. Back: Nontender, Normal Inspection Extremities: Nontender, No edema. Negative for: Calf Tenderness Skin: Normal color, No rash, No Trauma. Negative for: Cyanosis Neurological: Alert, Oriented x3, Cranial nerves II-XII grossly intact, Normal Strength, Normal Sensation Psychological: Normal affect, Normal Mood Diagnostic/Tx/Re-eval Laboratory Tests 07/20/19 07/20/19 Range/Units 01:55 01:55 WBC 10.7 (4.4-11.0) K/mm3 RBC 5.07 (4.6-6.2) M/mm3 Hgb 15.9 (13.0-16.5) g/dL Hct 48.2 (40-54) % MCV 95.1 H (80-94) fL MCH 31.4 (27.0-32.0) pg MCHC 33.0 (32-36) g/dL RDW Std Deviation 43.5 (35.1-43.9) fl RDW Coeff of Genesis 12.5 (11.6-14.6) % Plt Count 272 (150-450) K/mm3 MPV 9.4 (6.2-12.0) fl Immature Gran % (Auto) 0.300 (0.0-0.9) % Neut % (Auto) 64.3 (47-70) % Lymph % (Auto) 26.1 (19-41) % [place]ole % (Auto) 8.0 (0-10) % Eos % (Auto) 0.8 (0-5) % Baso % (Auto) 0.5 (0-1) % Absolute Neuts (auto) 6.9 (2.0-7.7) X10^3/uL Absolute Lymphs (auto) 2.78 (0.83-4.51) X10^3/uL Nucleated RBC % 0 (0-5) % Sodium 139 (136-145) mmol/L Potassium 3.2 L (3.5-5.1) mmol/L Chloride 105 (98-107) mmol/L Carbon Dioxide 27.0 (21.0-32.0) mmol/L Anion Gap 7 (5-15) BUN 11 (7-18) mg/dL Creatinine 0.61 L (0.70-1.30) mg/dL Estim Creat Clear Calc 140.59 ml/min Est GFR (MDRD) Af Amer 176 (>60) mL/min Est GFR (MDRD) Non-Af 145 (>60) mL/min BUN/Creatinine Ratio 18.2 (10-20) RATIO Glucose 143 H (74-106) mg/dL Calcium 9.2 (8.5-10.1) mg/dL - Medical Decision Making I did some basic labs and they are unremarkable. Given his complaints, I tried to obtain recent records from [facility]. The most recent thing they have in their records as an ER visit from 07/13/2019, describing the exact same symptoms that he describes to me, symptoms he has had off and on for 3 years, and there is no record of a hospital admission this past weekend with IV antibiotics. Prior to seeing all this I gave him a dose of morphine for his pain. I feel he is stable for discharge home. The ER physician did note that he has had multiple visits to several of the [facility] emergency departments with similar symptoms and request for analgesics. He is advised to follow-up as an outpatient and I do not feel comfortable prescribing him any narcotics at this time. ED Disposition - Plan for ED Patient: Disposition: Home or Assisted Living Diagnosis: Bilateral groin pain Instructions: After Hernia Surgery Referrals: Denise Wiseman DO [Primary Care Provider] - surgeon, [facility] [Other] (as directed by them)
[2019-07-20] MEDS: Morphine 4 MG/ML Syringe IV (02:40)
[2019-07-20 02:58] LABS: Anion Gap 7 (5-15); BUN 11 mg/dL (7-18); BUN/Creat Ratio 18.2 RATIO (10-20); Calcium,Total 9.2 mg/dL (8.5-10.1); Chloride 105 mmol/L (98-107); Creatinine, Serum 0.61 mg/dL (0.70-1.30); EST Glomerular Filtration Rate 145 mL/min (>60); Est Glom Filt Rate - Afr Amer 176 mL/min (>60); Estimated Creatinine Clearance 140.59 ml/min; Glucose 143 mg/dL (74-106); Potassium 3.2 mmol/L (3.5-5.1); Sodium Level 139 mmol/L (136-145)
[2019-07-20 03:07] LABS: Absolute Lymphocyte Count 2.78 X10^3/uL (0.83-4.51); Absolute Neutrophil Count 6.9 X10^3/uL (2.0-7.7); Basophil# 0.05 X10^3/uL; Basophil% 0.5 % (0-1); Eosinophil# 0.09 X10^3/uL; Eosinophils% 0.8 % (0-5); Hematocrit 48.2 % (40-54); Hemoglobin 15.9 g/dL (13.0-16.5); Lymphocyte # 2.78 X10^3/ul (4.0); Lymphocyte % 26.1 % (19-41); Mean Corpuscular Hgb 31.4 pg (27.0-32.0); Mean Corpuscular Volume 95.1 fL (80-94); Mean Platelet Vol. 9.4 fl (6.2-12.0); Monocyte# 0.85 X10^3/uL; NRBC Flagged by Analyzer 0 % (0-5); Neutrophil # 6.87 X10^3/uL (2.7-7.7); Neutrophil % 64.3 % (47-70); Platelet Count 272 K/mm3 (150-450); RBC Distribution Width CV 12.5 % (11.6-14.6); RBC Distribution Width SD 43.5 fl (35.1-43.9); Red Blood Count 5.07 M/mm3 (4.6-6.2); White Blood Count 10.7 K/mm3 (4.4-11.0)
[2019-07-20 03:50] VITALS: BP 143/102; PULSE 109; RESP 16; O2SAT 95
== END 2019-07-20 03:55 | disposition home or self-care (01) ==
PROVIDERS: Emergency Provider Emergency Medicine; PCP Internal Medicine
DX: R10.31 Right lower quadrant pain (principal); R10.32 Left lower quadrant pain; J44.9 Chronic obstructive pulmonary disease, unspecified; K21.9 Gastro-esophageal reflux disease without esophagitis; I10 Essential (primary) hypertension; E78.5 Hyperlipidemia, unspecified; G35 Multiple sclerosis; F17.200 Nicotine dependence, unspecified, uncomplicated
CPT/HCPCS: 80048; 85025; 96374; 99283; A4216

== ENCOUNTER 2019-08-17 16:53 | Emergency (ER) | payer MEDICARE, MEDICAID, SELFPAY ==
[2019-08-17 16:54] VITALS: BP 154/91; PULSE 95; RESP 24; TEMP 36.4; O2SAT 99; BMI 23.4
[2019-08-17 17:07] VITALS: BP 154/91; PULSE 95; RESP 24; TEMP 36.4; O2SAT 99
--- NOTE | 2019-08-17 17:39 | EKG12_ITS ---
Test Reason : SOB Blood Pressure : / mmHG Vent. Rate : 091 BPM Atrial Rate : 091 BPM P-R Int : 112 ms QRS Dur : 096 ms QT Int : 360 ms P-R-T Axes : 082 090 059 degrees QTc Int : 442 ms Normal sinus rhythm Normal ECG Confirmed by LENNY HERNANDEZ ([id number]), make up editor ASHLEY GARCIA ([id number]) on 08/24/2019 1:47:46 PM Referred By: SHAKIRA Confirmed By:LENNY HERNANDEZ
--- NOTE | 2019-08-17 17:45 | ED.VIS.GEN ---
History of Present Illness Chief Complaint: Shortness of Breath Informant: Patient Onset: - - years Context: Gradual Onset Timing: Continuous Narrative: Patient is a 59-year-old male with history of chronic abdominal pain, chronic bilateral groin pain, chronic chest pain, diabetes mellitus, tobacco use, MS, hypertension and hyperlipidemia presenting with worsening of his chronic symptoms. Patient is well-known to our emergency room. He states that ever since he was on an MS medication that he gets hardening in his veins which cause him pain. He states this pain has progressed. It seems to start in his groin and be also attributed to inguinal hernia mesh repair that he had remotely. He states because of the pain he is having in his groin and his lower abdomen he is now starting to feel short of breath and has chest pain. Patient states this is not different than his chronic symptoms but as she seems more severe. He continues to smoke cigarettes. He states he has a chronic cough for the past few months which is unchanged. Patient states 3 weeks ago he was at [facility] ER. There they try to give him antibiotics but after 1 course of IV antibiotics that made his burning in his veins worse so it was stopped. Patient states he was on antibiotics for his shortness of breath. He denies any associated fever or chills. Chart review shows that [place] [facility] and diagnosed with acute on chronic abdominal pain, COPD exacerbation and anxiety. He was treated for antibiotics and steroids for COPD exacerbation. Patient was then seen at a emergency room on 08/03 for the same complaint. Work-up was largely negative including negative d-dimer, troponin and COVID swab. Patient was discharged home. Past Medical History - Allergies and Home Meds Allergies/Adverse Reactions: Allergies citalopram hydrobromide [From Celexa] Allergy (Verified 08/17/19 16:59) itches bones colesevelam HCl [From WelChol] Allergy (Verified 08/17/19 16:59) pain dicyclomine HCl [From Bentyl] Allergy (Verified 08/17/19 16:59) shut off bowels duloxetine HCl [From Cymbalta] Allergy (Verified 08/17/19 16:59) tickle around heart glatiramer acetate [From Copaxone] Allergy (Verified 08/17/19 16:59) Rash meloxicam [From Mobic] Allergy (Verified 08/17/19 16:59) bones itch metoclopramide [From Reglan] Allergy (Verified 08/17/19 16:59) Chest tightness naproxen Allergy (Verified 08/17/19 16:59) Itching Penicillins Allergy (Verified 08/17/19 16:59) Rash rifaximin [From Xifaxan] Allergy (Verified 08/17/19 16:59) Chest tightness azithromycin Adverse Reaction (Verified 08/17/19 16:59) SHUTS BOWELS OFF fenofibrate Adverse Reaction (Verified 08/17/19 16:59) PAIN gemifloxacin mesylate [From Factive] Adverse Reaction (Verified 08/17/19 16:59) PT UNABLE TO RESPOND-NEEDS F/U hydrochlorothiazide Adverse Reaction (Verified 08/17/19 16:59) HEADACHE DIZZINESS magnesium Adverse Reaction (Verified 08/17/19 16:59) STOMACH PAIN pregabalin [From Lyrica] Adverse Reaction (Verified 08/17/19 16:59) WEAKENED NECK ranitidine Adverse Reaction (Verified 08/17/19 16:59) TEARS UP STOMACH sulfamethoxazole [From Bactrim] Adverse Reaction (Verified 08/17/19 16:59) FEET BLEED FOR 2 WEEKS tamsulosin [From Flomax] Adverse Reaction (Verified 08/17/19 16:59) MAKES MY CHEST TIGHT teriflunomide [From Aubagio] Adverse Reaction (Verified 08/17/19 16:59) Other CLOGS ARTERIES trimethoprim [From Bactrim] Adverse Reaction (Verified 08/17/19 16:59) Other Primary Care Physician: Denise Wiseman DO [Primary Care Provider] - Past Medical History: - - Multiple sclerosis, chronic neck and back pain, chronic abdominal pain Surgical History: - - T+A, Cholecystectomy, Umbilical hernia repair, BL rotator cuff repair, multiple spinal injections, Back and Neck surgery. Smoking Status: Current every day smoker - Family History Maternal Family History: Family History (Last Updated 04/06/19 @ 15:24 by Meghan Croft) Mother Cancer Father Heart disease Family History: Reports: - - Mother with history of lung and brain cancer. Paternal Family History: Family History (Last Updated 04/06/19 @ 15:24 by Meghan Croft) Mother Cancer Father Heart disease Family History: Reports: Heart Disease, - - History of premature coronary artery disease diagnosed in his father at age 47 Review of Systems General: Denies: Chills, Fever, Sweats Eyes: Denies: Visual changes - bilaterally, Diplopia ENT: Denies: Rhinorrhea, Sore throat Cardiovascular: Reports: Chest pain. Denies: Palpitations Respiratory: Reports: Dyspnea. Denies: Cough, Sputum, Dyspnea on exertion Gastrointestinal: Reports: Abdominal pain. Denies: Nausea, Vomiting, Diarrhea, Melena, Hematochezia Genitourinary: Denies: Dysuria, Hematuria, Frequency Musculoskeletal: Denies: Back pain, Extremity Pain Skin: Denies: Rash, Wounds Neurological: Denies: Headache, Weakness, Numbness Physical Exam Vital Signs/Narrative: Vital Signs Temp Pulse Resp BP Pulse Ox 08/17/19 17:07 97.6 F L 95 24 H 154/91 H 99 08/17/19 16:54 97.6 F L 95 24 H 154/91 H 99 Inital Vital Signs reviewed: Yes General: Well nourished, Well developed, No Acute Distress, - - Smells strongly of tobacco smoke Head: Normocephalic, Atraumatic Eyes: Perrl, EOMI ENT: Moist mucous membranes, No rhinorrhea Neck: Supple, Nontender Cardiovascular: Regular rate, Regular rhythm, No murmurs, - - 2+ bilateral DP pulses Respiratory: No distress, CTA bilaterally, Chest nontender Abdomen: Soft, Nontender, Nondistended, Normal bowel sounds, - - Bilateral inguinal masses palpated consistent with hernia mesh, no hernia appreciated Back: Nontender, Normal Inspection. Negative for: CVA tenderness, Spinal tenderness Extremities: Nontender, No edema Skin: Normal color, No rash Neurological: Alert, Oriented x3, Cranial nerves II-XII grossly intact, Normal Strength, Normal Sensation Psychological: Normal affect, - - Anxious, very preoccupied with the thought that he has blockages or calcifications in his groin vessels Diagnostic/Tx/Re-eval Chest X-Ray - ED: 1 View, Read by ED Physician, Read by Radiologist, No Acute Disease Clinical Impression(s) from Imaging Studies Chest X-Ray 08/17/19 18:55 IMPRESSION: No acute pulmonary findings. Electronically Signed: Sunday Gonzalez MD at 19:25 EDT Tel , Service support , Laboratory Data 08/17/19 08/17/19 08/17/19 18:35 18:35 19:55 WBC 7.2 RBC 5.16 Hgb 16.5 Hct 49.2 MCV 95.3 H MCH 32.0 MCHC 33.5 RDW Std Deviation 41.5 RDW Coeff of Genesis 11.9 Plt Count 262 MPV 9.3 Immature Gran % (Auto) 0.300 Neut % (Auto) 67.8 Lymph % (Auto) 21.6 [place] % (Auto) 9.3 Eos % (Auto) 0.4 Baso % (Auto) 0.6 Absolute Neuts (auto) 4.9 Absolute Lymphs (auto) 1.55 Nucleated RBC % 0 Sodium 139 Potassium 3.6 Chloride 104 Carbon Dioxide 30.0 Anion Gap 5 BUN 7 Creatinine 0.80 Estim Creat Clear Calc 107.20 Est GFR (MDRD) Af Amer 128 Est GFR (MDRD) Non-Af 106 BUN/Creatinine Ratio 8.8 L Glucose 105 Calcium 9.3 Total Bilirubin 0.50 AST 20 ALT 32 Alkaline Phosphatase 89 Troponin I < 0.015 Total Protein 7.6 Albumin 3.8 Globulin 3.8 Albumin/Globulin Ratio 1.0 Lipase 191 Urine Color Yellow Urine Clarity Clear Urine pH 7.0 Ur Specific [place] 1.010 Urine Protein Negative Urine Glucose (UA) Normal Urine Ketones Negative Urine Occult Blood Negative Urine Nitrite Negative Urine Bilirubin Negative Urine Urobilinogen Normal Ur Leukocyte Esterase Negative Urine RBC 0-5 SEEN Urine WBC 0 SEEN Ur Squamous Epith Cells 0 SEEN Urine Bacteria RARE Urine Mucus 0 SEEN - Rhythm Strip Rhythm Strip: Sinus Rhythm Rate: 91 Ectopy: None - EKG Initial EKG Interpretation: Sinus Rhythm, - - Sinus rhythm at a rate of 91 Normal intervals Normal axis Normal ST segments No change compared to prior EKG on 02/23/2019 - Medical Decision Making Patient is evaluated for chest pain, abdominal pain and shortness of breath. He does not have any acute complaints. Patient's been seen multiple times for similar complaints. In addition has been to multiple ERs in the [facility]. Patient states he keeps going to different ERs hoping to get another opinion. His work-up is unremarkable. He has no conversational dyspnea, hypoxia or any objective findings. I strongly suspect that patient has a psychiatric condition that is causing him to fixate on the thought that he has blockages and mineralization of his vessels. Patient does have a care plan with our ER which is reviewed. Patient is discharged home. I will not give him any medications as he seems to react to almost every medication and I do not think there is any indication. Is not have any obvious infection requiring antibiotics. Patient is counseled heavily to follow-up with his primary care doctor as well as neurology. Patient is counseled on signs and symptoms requiring return to the emergency room. Patient verbalizes agreement and understand this plan. Patient discharged home in stable and improved condition. ED Disposition - Plan for ED Patient: Disposition: Home or Assisted Living Diagnosis: Chest pain, Abdominal pain of unknown cause Instructions: ED Chest Pain Atypical Unkn Cause, ED Unknown Causes of Abdominal Pain Male Referrals: Denise Wiseman DO [Primary Care Provider] -
--- NOTE | 2019-08-17 18:55 | RAD_ITS ---
STUDY: X-RAY CHEST REASON FOR EXAM: Male, 59 years old. increased SOB, Abdominal pain, chills, headache. Hx of HTN, COPD, Emphysema. TECHNIQUE: Frontal and lateral views of the chest. COMPARISON: 02/21/2019 FINDINGS: The lungs are clear and expanded. There is no demonstrated pleural abnormality. Normal size heart. Normal mediastinum and zachary. Normal visualized pulmonary arteries. Normal visualized aortic arch and descending thoracic aorta. Normal visualized thoracic spine. Normal visualized ribs, clavicles, and shoulders. Abdominal clips. RAD/Chest PA and Lateral IMPRESSION: No acute pulmonary findings. Electronically Signed: Sunday Gonzalez MD at 19:25 EDT Tel , Service support ,
[2019-08-17 18:58] LABS: Absolute Lymphocyte Count 1.55 X10^3/uL (0.83-4.51); Absolute Neutrophil Count 4.9 X10^3/uL (2.0-7.7); Basophil# 0.04 X10^3/uL; Basophil% 0.6 % (0-1); Eosinophil# 0.03 X10^3/uL; Eosinophils% 0.4 % (0-5); Hematocrit 49.2 % (40-54); Hemoglobin 16.5 g/dL (13.0-16.5); Lymphocyte # 1.55 X10^3/ul (4.0); Lymphocyte % 21.6 % (19-41); Mean Corp Hgb Conc 33.5 g/dL (32-36); Mean Corpuscular Volume 95.3 fL (80-94); Mean Platelet Vol. 9.3 fl (6.2-12.0); Monocyte# 0.67 X10^3/uL; Monocyte% 9.3 % (0-10); NRBC Flagged by Analyzer 0 % (0-5); Neutrophil # 4.86 X10^3/uL (2.7-7.7); Neutrophil % 67.8 % (47-70); Platelet Count 262 K/mm3 (150-450); RBC Distribution Width CV 11.9 % (11.6-14.6); RBC Distribution Width SD 41.5 fl (35.1-43.9); Red Blood Count 5.16 M/mm3 (4.6-6.2); White Blood Count 7.2 K/mm3 (4.4-11.0)
[2019-08-17 19:14] LABS: AST(SGOT) 20 U/L (15-37); Alanine Aminotransfer ALT/SGPT 32 U/L (16-61); Albumin, Serum 3.8 g/dL (3.2-5.0); Alkaline Phosphatase 89 U/L (45-117); Anion Gap 5 (5-15); BUN 7 mg/dL (7-18); BUN/Creat Ratio 8.8 RATIO (10-20); Calcium,Total 9.3 mg/dL (8.5-10.1); Chloride 104 mmol/L (98-107); EST Glomerular Filtration Rate 106 mL/min (>60); Est Glom Filt Rate - Afr Amer 128 mL/min (>60); Globulin 3.8 g/dL (2.2-4.2); Glucose 105 mg/dL (74-106); Lipase 191 U/L (73-393); Potassium 3.6 mmol/L (3.5-5.1); Protein, Total 7.6 g/dL (6.4-8.2); Sodium Level 139 mmol/L (136-145)
[2019-08-17 19:46] VITALS: BP 144/95; PULSE 84; RESP 21; O2SAT 100
[2019-08-17 20:00] VITALS: BP 158/99; PULSE 81; RESP 18; TEMP 36.6; O2SAT 100
[2019-08-17 20:07] LABS: Mucous, Urine 0 SEEN /hpf (<or=2+); Squamous Epithelial Cells - UA 0 SEEN /hpf (0-5); White Blood Cells 0 SEEN /hpf (0-5)
[2019-08-17 20:16] LABS: Color, Urine Yellow (Yellow); Glucose, Dipstick Normal (Normal); Ketone-Dipstick Negative (Negative); Leukocyte Esterase-Dipstick Negative /ul (Negative); Nitrite-Dipstick Negative (Negative); Occult Blood-Urine Negative /ul (Negative); Protein-Dipstick Negative (Negative); Urine Bilirubin Dipstick Negative (Negative); Urine Clarity Clear (Clear); Urine Urobilinogen Normal (Normal)
[2019-08-17 20:23] LABS: Bacteria RARE /hpf (None Seen); Red Blood Cells-Urine 0-5 SEEN /hpf (0-5)
[2019-08-17 20:24] VITALS: BP 141/89; PULSE 80; RESP 18; O2SAT 96
== END 2019-08-17 20:24 | disposition home or self-care (01) ==
PROVIDERS: Emergency Provider Emergency Medicine; PCP Internal Medicine
DX: R07.9 Chest pain, unspecified (principal); R10.31 Right lower quadrant pain; R10.32 Left lower quadrant pain; G89.29 Other chronic pain; I10 Essential (primary) hypertension; E11.9 Type 2 diabetes mellitus without complications; E78.5 Hyperlipidemia, unspecified; G35 Multiple sclerosis; F17.210 Nicotine dependence, cigarettes, uncomplicated; Z79.82 Long term (current) use of aspirin; Z79.899 Other long term (current) drug therapy
CPT/HCPCS: 71046; 80053; 81001; 83690; 84484; 85025; 93005; 99283

== ENCOUNTER 2019-12-23 10:31 | Emergency (ER) | payer MEDICARE, SELFPAY ==
[2019-12-23 10:32] VITALS: BP 199/106; PULSE 128; RESP 18; TEMP 36.2; O2SAT 99; BMI 20.2
--- NOTE | 2019-12-23 11:10 | ED.DCSUM_ITS ---
- ER Visit Summary Date of Service: 12/23/19 Chief Complaint: Whole body burning History of Present Illness: The patient is a [address] of COPD, hypertension, high cholesterol, reflux, MS and chronic pain syndrome. Patient states he has burning through his whole body. He states is going from vein the vein. He has had this worked up before without any specific diagnosis. Physical Examination: Middle-aged male no acute distress vital signs stable afebrile. He smells strongly of tobacco. He is uncapped. He has long nails and long hair. H EENT exam unremarkable. Moist weeks membranes. Neck nontender. Lungs coarse breath sounds from smoking with a few expiratory wheeze s. Heart regular rhythm no murmur rate about 120 he is anxious. Abdomen is soft nontender normal bowel sounds no peritoneal signs. Patient moves all 4 extremities.. Calves are nontender without edema or cords. Back nontender. Skin no rashes. Neurologically is awake and alert with no focal motor deficits. Test Results: None Emergency Department Course and Treatment: Patient is a normal exam. Most likely has an underlying psychiatric illness. I have cared for this patient before. He has multiple non-verifiable complaints. With an unremarkable exam. Treatment Plan: I explained the patient need be discharged she left prior to being discharged. Disposition: Discharge Impression: Acute on chronic pain syndrome History of COPD and hypertension This note was generated with Smart Balloon dictation software. It may contain incorrect words, spelling, and punctuation that were not noted in review of the chart prior to signing ED Disposition - Plan for ED Patient: Referrals: Debbie Gomez [Primary Care Provider] -
== END 2019-12-23 11:31 | disposition home or self-care (01) ==
LOC: ED 10:59
PROVIDERS: Emergency Provider Emergency Medicine
DX: G89.4 Chronic pain syndrome (principal); I10 Essential (primary) hypertension; J44.9 Chronic obstructive pulmonary disease, unspecified; K21.9 Gastro-esophageal reflux disease without esophagitis; Z72.0 Tobacco use
CPT/HCPCS: 99282